=== PATIENT | male | born 1955 | race Caucasian/White ===

== ENCOUNTER 2017-06-19 08:10 | Emergency (ER) | payer OTHER ==
[~2017-06-19] VITALS: Ht 185.4 cm; Wt 68.0 kg
[~2017-06-19 08:10] MED LIST: ASPI-983 PO; ATOR80TA76 PO; ENAL2.5T PO; IBUP-30 PO; ISOS30TA3 PO; METO-387 PO; OMG1KC PO; PANT40TA3 PO; TICA90TA PO
--- OUTSIDE RECORDS SUMMARY | 2017-06-19 08:15 | XMS REPORT ---
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
--- OUTSIDE RECORDS SUMMARY | 2017-06-19 08:15 | XMS REPORT | Continuity of Care Document ---
Author Author [facility] Organization [facility] Address Unknown Phone Unavailable Allergies Active Description Code Type Severity Reaction Onset Reported/Identified Relationship to Patient Clinical Status Yes No Known Drug Allergies [id number] Drug Allergy Unknown N/ A 08/12/2014 Medications Problems Date Dx Coded Attending Type Code Diagnosis Diagnosed By 08/14/2014 ANTONIO PETERS FACC, SKYLER BUSTOS CCDS Ot 305.1 TOBACCO USE DISORDER 08/14/2014 ANTONIO PETERS FACC, SKYLER BUSTOS CCDS Ot 492.8 EMPHYSEMA NEC 08/14/2014 ANTONIO PETERS FACC, SKYLER BUSTOS CCDS Ot 518.89 OTHER DISEASES OF LUNG, NEC 08/14/2014 ANTONIO PETERS FACC, SKYLER BUSTOS CCDS Ot 786.59 CHEST PAIN NEC 09/01/2015 DANNY PRATER MD Ot E78.5 HYPERLIPIDEMIA, UNSPECIFIED 09/01/2015 DANNY PRATER MD Ot F17.210 NICOTINE DEPENDENCE, CIGARETTES, UNCOMPL 09/01/2015 DANNY PRATER MD Ot I10 ESSENTIAL (PRIMARY) HYPERTENSION 09/01/2015 DANNY PRATER MD, Ot I21.4 NON-ST ELEVATION (NSTEMI) MYOCARDIAL INF 09/01/2015 DANNY PRATER MD Ot I25.10 ATHSCL HEART DISEASE OF [place] CORONARY 09/01/2015 DANNY PRATER MD Ot K21.9 GASTRO-ESOPHAGEAL REFLUX DISEASE WITHOUT 09/01/2015 DANNY PRATER MD Ot Z82.49 FAMILY HX OF ISCHEM HEART DIS AND OTH DI 07/18/2016 DANNY PRATER MD, Ot I10 ESSENTIAL (PRIMARY) HYPERTENSION 07/18/2016 DANNY PRATER MD, Ot I25.10 ATHSCL HEART DISEASE OF [place] CORONARY 07/18/2016 DANNY PRATER MD Ot I34.0 NONRHEUMATIC MITRAL (VALVE) INSUFFICIENC 07/18/2016 DANNY PRATER MD Ot R07.9 CHEST PAIN, UNSPECIFIED 07/18/2016 DANNY PRATER MD Ot Z72.0 TOBACCO USE 08/07/2016 DANNY PRATER MD Ot I10 ESSENTIAL (PRIMARY) HYPERTENSION 08/07/2016 DANNY PRATER MD Ot I25.10 ATHSCL HEART DISEASE OF [place] CORONARY 08/07/2016 DANNY PRATER MD Ot I34.0 NONRHEUMATIC MITRAL (VALVE) INSUFFICIENC 08/07/2016 DANNY PRATER MD Ot R07.9 CHEST PAIN, UNSPECIFIED 08/07/2016 DANNY PRATER MD Ot Z72.0 TOBACCO USE Procedures Code Description Performed By Performed On 137201H 08/30/2015 [id number] 08/30/2015 [id number] 08/30/2015 [id number] 08/30/2015 [id number] 08/31/2015 [id number] 08/31/2015 Results Encounters ACCT No. Visit Date/Time Discharge Status Pt. Type Provider Facility Loc./Unit Complaint [id number] 2016 07:44:00 2015 23:59:59 CLS Outpatient DANNY PRATER MD [facility] CARD CAD,CHEST PAIN SYNDROME,HTN,MR, TOBACCO USE [id number] 08/30/2015 18:11:00 2014 14:20:00 DIS Inpatient DANNY PRATER MD [facility] ICU UPPER ABD PAIN [id number] 08/13/2014 03:41:00 2013 20:50:00 DIS Inpatient ANTONIO PETERS FACC, SKYLER BUSTOS CCDS [facility] CSD CHEST PAIN
--- OUTSIDE RECORDS SUMMARY | 2017-06-19 08:15 | XMS REPORT ---
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 Info Not Available Non Drug Allergy Problems Problem Type Condition Code Onset Dates Condition Status Assessment History of [place] (myocardial infarction) I25.2 Active Assessment Hypertension I10 Active Assessment Hyperlipidemia E78.5 Active Assessment Bronchitis J40 Active Problem Coronary artery disease I25.10 Active Problem Hypertension I10 Active Problem History of [place] (myocardial infarction) I25.2 Active Problem GERD (gastroesophageal reflux disease) K21.9 Active Assessment Routine adult health maintenance Z00.00 Active Problem Hyperlipidemia E78.5 Active Problem History of nicotine dependence Z87.891 Active Medications Medication Code System Code Instructions Start Date End Date Status Dosage Pantoprazole Sodium [facility] [address]-68 40 MG Orally Once a day 1 tablet Fish Oil [facility] [address]-91 1000 MG Orally Twice a day 1 capsule Aspirin [facility] [address]-76 81 MG Orally Once a day 1 tablet Enalapril Maleate [facility] [address]-76 2.5 MG Orally not defined Metoprolol Succinate ER [facility] [address]-88 25 MG Orally Once a day 1 tablet Albuterol Sulfate HFA [facility] [address]-74 108 (90 Base) MCG/ACT Inhalation every 4 hrs Sep 17, 2015 2 puffs as needed Brilinta [facility] [address]-32 90 MG Orally Twice a day 1 tablet PredniSONE [facility] [address]-66 20 MG Orally Sep 17, 2015 Sep 22, 2015 1 tablet with food or milk Atorvastatin Calcium [facility] [address]-19 80 MG Orally Once a day 1 tablet Isosorbide Mononitrate [facility] [address]-30 30 MG Orally Once a day 1 tablet Procedures Procedure Coding System Code Date Office Visit, New Pt., Level 4 CPT-4 37459 Sep 17, 2015 Vital Signs Date/Time: Sep 17, 2015 Temperature 98.1 F Weight 159.7 lbs Height 71 in BMI 22.27 Index Blood Pressure Diastolic 76 mmHg Blood Pressure Systolic 112 mmHg Cardiac Monitoring Heart Rate 78 bpm Results No Known Results Summary Purpose [employer] Submission
[2017-06-19] MEDS ORDERED: KETOROLAC 60 MG/2 ML VIAL IM ONE (09:45)
[2017-06-19 09:58] LABS: BASOPHILS % (AUTO) 0 % (0-10); EOSINOPHILS # (AUTO) 0.1 10^3/uL (0.0-0.3); EOSINOPHILS % (AUTO) 1 % (0-10); LYMPHOCYTES % (AUTO) 15 % (12-44); MEAN CORPUSCULAR HEMOGLOBIN 29 PG (25-34); MEAN CORPUSCULAR HGB CONC 33 G/DL (32-36); MEAN CORPUSCULAR VOLUME 87 FL (80-99); MEAN PLATELET VOLUME 8.5 FL (7.4-10.4); MONOCYTES # (AUTO) 0.6 X 10^3 (0.0-1.0); MONOCYTES % (AUTO) 9 % (0-12); NEUTROPHILS # (AUTO) 4.9 X 10^3 (1.8-7.8); NEUTROPHILS % (AUTO) 74 % (42-75); PLATELET COUNT 325 10^3/uL (130-400); RED BLOOD COUNT 4.15 10^6/uL (4.35-5.85); RED CELL DISTRIBUTION WIDTH 13.6 % (10.0-14.5); WHITE BLOOD COUNT 6.6 10^3/uL (4.3-11.0)
[2017-06-19 10:22] LABS: ERYTHROCYTE SEDIMENTATION RATE 74 MM/HR (0-30)
[2017-06-19 10:25] LABS: ALANINE AMINOTRANSFERASE 16 U/L (0-55); ALBUMIN 3.5 GM/DL (3.2-4.5); ANION GAP 10 MMOL/L (5-14); ASPARTATE AMINO TRANSFERASE 17 U/L (5-34); BILIRUBIN,TOTAL 0.6 MG/DL (0.1-1.0); BLOOD UREA NITROGEN 25 MG/DL (7-18); BUN/CREATININE RATIO 31; CARBON DIOXIDE 22 MMOL/L (21-32); CHLORIDE 106 MMOL/L (98-107); CREATININE SERUM 0.81 MG/DL (0.60-1.30); GFR ESTIMATED > 60; GLUCOSE 90 MG/DL (70-105); POTASSIUM 3.7 MMOL/L (3.6-5.0); SODIUM 138 MMOL/L (135-145); TOTAL PROTEIN 6.8 GM/DL (6.4-8.2); URIC ACID 4.3 MG/DL (2.6-7.2); hs C REACTIVE PROTEIN 11.72 MG/DL (0.00-0.50)
[2017-06-19] MEDS ORDERED: TRAM-42 PO (10:31)
[2017-06-19] MEDS ORDERED: PRED5TAB PO (10:31)
--- NOTE | 2017-06-19 10:31 | ED General ---
General Chief Complaint: General Problems/Pain Stated Complaint: SHOULDERS/HANDS PAIN Nursing Triage Note: ADM TO ED C/O SHOULDER PAIN FOR SEVERAL MONTHS. WAS SEEN AT [facility] 3 WEEKS AGO AND STARTED ON STEROIDS AND ANTI INLAMMATORY MEDS,AND CHECKED FOR LYMES DIEASE. TEST NEG. CON'T TO HAVE PAIN OTC PAIN MEDS NOT HELPING. Nursing Sepsis Screen: No Definite Risk Source of Information: Patient History of Present Illness Time Seen by Provider: 09:30 Initial Comments PT C/O CHRONIC BILATERAL SHOULDER PAIN AND OCCASIONAL BILATERAL ELBOW PAIN STATES SYMPTOMS BEGAN AT LEAST 5 YEARS AGO, AND HAVE BEEN WORSE FOR SEVERAL MONTHS OCCASIONALLY HANDS SWELL AND ARE PAINFUL WELL, AND PAIN IN HANDS RIGHT NOW IS MOSTLY IN KNUCKLES AND IS WORSE ON LEFT HAND SYMPTOMS COME AND GO, AND NOTHING WORSENS OR IMPROVES PAIN STATES HE THINKS HE IS BEING TREATED FOR GOUT BUT NO TESTS HAVE BEEN DONE SEEN AT [facility] 3 WEEKS AGO FOR THIS PROBLEM AND WAS GIVEN RX FOR 5 DAYS OF STEROIDS AND THEN A FEW DAYS OF AN NSAID, WHICH HELPED, ESPECIALLY THE STEROIDS HAS ANOTHER APPOINTMENT 06/25/17 FOR THIS PROBLEM BUT STATES HE "CAN'T WAIT" STATES HE CANNOT SLEEP DUE TO PAIN NO PARESTHESIAS OR MOTOR DEFICITS NO INJURIES PCP:[facility] Allergies and Home Medications Allergies Coded Allergies: No Known Drug Allergies (Unverified , 08/12/14) Home Medications Aspirin 81 Mg Tablet.dr, 81 MG PO DAILY, #100 Ref 4 Prescribed by: DANNY PRATER on 09/01/15916 Atorvastatin Calcium 80 Mg Tablet, 80 MG PO HS, #30 Ref 4 Prescribed by: DANNY PRATER on 09/01/15916 Enalapril Maleate 2.5 Mg Tablet, 2.5 MG PO DAILY, #30 Ref 4 Prescribed by: DANNY PRATER on 09/01/15916 Isosorbide Mononitrate 30 Mg Tab.er.24h, 30 MG PO DAILY, #30 Ref 4 Prescribed by: DANNY PRATER on 09/01/15916 Metoprolol Succinate 25 Mg Tab.er.24h, 25 MG PO DAILY, #30 Ref 4 Prescribed by: DANNY PRATER on 09/01/15916 [place] 3 Polyunsat Fatty Acids 1,000 Mg Cap, 1,000 MG PO BID WITH MEALS, #100 Ref 4 Prescribed by: DANNY PRATER on 09/01/15916 Pantoprazole Sodium 40 Mg Tablet.dr, 40 MG PO DAILY@0700, #30 Ref 4 Prescribed by: DANNY PRATER on 09/01/15916 Prednisone 5 Mg Tablet, 5 MG PO UD, #78 12 PILLS DAY 1, THEN DECREASE BY 1 PILL A DAY UNTIL GONE Prescribed by: TAY CARRASQUILLO on 06/19/17 1031 Ticagrelor 90 Mg Tablet, 90 MG PO BID, #60 Ref 4 Prescribed by: DANNY PRATER on 09/01/15916 Tramadol HCl 50 Mg Tablet, 50 MG PO Q4H, #20 Prescribed by: TAY CARRASQUILLO on 06/19/17 1031 Constitutional: no symptoms reported Respiratory: no symptoms reported, No short of breath Cardiovascular: no symptoms reported, No chest pain Gastrointestinal: no symptoms reported Genitourinary: no symptoms reported Musculoskeletal: see HPI, joint pain, joint swelling Skin: no symptoms reported Psychiatric/Neurological: No Symptoms Reported, Denies Numbness, Denies Paresthesia, Denies Tingling, Denies Tremors, Denies Weakness Hematologic/Lymphatic: No Symptoms Reported Immunological/Allergic: no symptoms reported Past Zpcztfg-Jeusfl-Chisfn Hx Patient Social History Alcohol Use: Denies Use Recreational Drug Use: No Smoking Status: Current Everyday Smoker Type Used: Cigarettes (1 PPD) Recent Foreign Travel: No Contact w/Someone Who Travel: No Recent Infectious Disease Expo: No Seasonal Allergies Seasonal Allergies: No Surgeries HX Surgeries: Yes (CARDIAC CATH--STENTS X 3) Surgeries: Cardiac, Coronary Stent Respiratory Hx Respiratory Disorders: Yes Respiratory Disorders: COPD Cardiovascular Hx Cardiac Disorders: Yes Cardiac Disorders: Coronary Artery Disease, Heart Attack, High Cholesterol, Hypertension Neurological Hx Neurological Disorders: No Reproductive System Hx Reproductive Disorders: No Sexually Transmitted Disease: No Genitourinary Hx Genitourinary Disorders: No Gastrointestinal Hx Gastrointestinal Disorders: Yes Gastrointestinal Disorders: Gastroesophageal Reflux Musculoskeletal Hx Musculoskeletal Disorders: Yes (SHOULDER, ELBOW, HAND PAIN ) Endocrine Hx Endocrine Disorders: No HEENT HX ENT Disorders: No Cancer Hx Cancer: No Psychosocial Hx Psychiatric Problems: No Integumentary HX Skin/Integumentary Disorder: No Blood Transfusions Hx Blood Disorders: No Adverse Reaction to a Blood Tr: No Family Medical History Family Medial History: Cardiovascular disease Cataracts Diabetes mellitus Glaucoma Hypertension Myocardial infarction Respiratory disorder Thyroid disease Visual disorder No Family History of: AIDS Abdominal aortic aneurysm [place]'s disease Alcoholism Alzheimer's disease Aphasia Arthritis Asthma Cancer of mouth Colon cancer Completed stroke Congenital disease Congenital heart disease Coronary thrombosis Cystic fibrosis Deafness or hearing loss Dementia Drug abuse Dysphasia Fibrocystic disease of breast Gastroenteritis Headache disorder Hypercholesterolemia Infertility Kidney disease Neoplasm Not obtainable due to adoption Osteoporosis Parkinson's disease Prostate cancer Psychosocial problem Seizure disorder Severe allergy Tuberculosis Physical Exam Vital Signs Capillary Refill : Less Than 3 Seconds General Appearance: No Apparent Distress, WD/WN, Other (DIRTY, MALODOROUS, UNKMEPT) Neck: Full Range of Motion, Normal Inspection, Non Tender, Supple Respiratory: Normal Breath Sounds, No Accessory Muscle Use, No Respiratory Distress Cardiovascular: Regular Rate, Rhythm, No Murmur, Normal Peripheral Pulses Back: Normal Inspection, No CVA Tenderness, No Vertebral Tenderness Extremity: Normal Capillary Refill, Normal Range of Motion, No Pedal Edema, Other (PT WITH SWELLING, TENDERNESS AND ERYTHEMA TO MID MCP JOINTS OF HANDS-- LEFT > RIGHT. MILD TENDERNESS TO ELBOWS AND SHOULDERS. FULL ROM OF ALL JOINTS. MOTOR/SENSORY/VASCULAR INTACT. ) Neurologic/Psychiatric: Alert, Oriented x3, No Motor/Sensory Deficits, analytical consultant II- XII Norm as Tested Skin: Normal Color, Warm/Dry Progress/Results/Core Measures Results/Orders Lab Results My Orders Medications Given in ED Vital Signs/I&O Blood Pressure Mean: 101 Departure Impression Impression: Primary Impression: Inflammatory arthritis Disposition: 01 HOME, SELF-CARE Condition: Stable Departure-Patient Inst. Referrals: [facility] (PCP/Family) Primary Care Physician Patient Instructions: ARTHRALGIA Add. Discharge Instructions: ALTERNATE ICE AND HEAT TO SORE AREAS AT 20 MINUTE INTERVALS KEEP YOUR APPOINTMENT NEXT WEEK WITH [facility] All discharge instructions reviewed with patient and/or family. Voiced understanding. Scripts Tramadol HCl (Ultram) 50 Mg Tablet 50 MG PO Q4H, #20 TAB Prov: TAY CARRASQUILLO DO 06/19/17 Prednisone (Prednisone) 5 Mg Tablet 5 MG PO UD, #78 TAB 12 PILLS DAY 1, THEN DECREASE BY 1 PILL A DAY UNTIL GONE Prov: TAY CARRASQUILLO DO 06/19/17 TAY CARRASQUILLO DO Jun 19, 2017 10:31
[2017-06-19 10:50] VITALS: BP 144/81
[2017-06-19 22:14] LABS: LYME AB G M < 0.01 Index (0.00-0.89)
[2017-06-22 07:56] LABS: LYME AB INTERP Negative (Negative)
[2017-06-22 08:11] LABS: TULAREMIA ANTIBODY <1:20
[2017-06-22 13:44] LABS: EHRLICHIA CHAFFEENSIS G ABY <1:16 (<1:16)
[2017-06-22 15:40] LABS: IGG ROCKY MOUNTAIN SPOTTED FEV <1:16 (<1:16); IGM ROCKY MOUNTAIN SPOTTED FEV <1:10 (<1:10)
== END 2017-06-19 10:50 | disposition home or self-care (01) ==
LOC: EDUNIT# 08:10 → ER 08:12
DX: M19.012 Primary osteoarthritis, left shoulder (principal); M19.011 Primary osteoarthritis, right shoulder; J44.9 Chronic obstructive pulmonary disease, unspecified; I25.2 Old myocardial infarction; K21.9 Gastro-esophageal reflux disease without esophagitis; F17.200 Nicotine dependence, unspecified, uncomplicated; Z82.49 Family history of ischemic heart disease and other diseases of the circulatory system; Z79.82 Long term (current) use of aspirin
CPT/HCPCS: 36415; 80053; 84443; 84550; 85025; 85652; 86141; 86618; 86666; 86668; 86757; 96372; 99284

== ENCOUNTER 2017-07-19 16:49 | Inpatient (IN) | payer OTHER ==
[~2017-07-19] VITALS: Ht 185.4 cm; Wt 68.0 kg
[~2017-07-19 16:49] MED LIST changes: +METO-270 PO; -METO-387 PO; +PRED5TAB PO; +TRAM-42 PO
[2017-07-19] MEDS ORDERED: fentaNYL INJECTION 100 MCG/2 ML AMP IVP STA (18:25)
[2017-07-19] MEDS ORDERED: NS IV 1000 ML 1,000 ML IV ONE (18:25)
[2017-07-19 18:30] LABS: BASOPHILS % (AUTO) 0 % (0-10); EOSINOPHILS % (AUTO) 0 % (0-10); LYMPHOCYTES # (AUTO) 0.9 X 10^3 (1.0-4.0); LYMPHOCYTES % (AUTO) 9 % (12-44); MEAN CORPUSCULAR HEMOGLOBIN 29 PG (25-34); MEAN CORPUSCULAR HGB CONC 34 G/DL (32-36); MEAN CORPUSCULAR VOLUME 86 FL (80-99); MEAN PLATELET VOLUME 8.8 FL (7.4-10.4); MONOCYTES # (AUTO) 0.7 X 10^3 (0.0-1.0); MONOCYTES % (AUTO) 7 % (0-12); NEUTROPHILS # (AUTO) 8.6 X 10^3 (1.8-7.8); NEUTROPHILS % (AUTO) 84 % (42-75); PLATELET COUNT 343 10^3/uL (130-400); RED CELL DISTRIBUTION WIDTH 14.9 % (10.0-14.5); WHITE BLOOD COUNT 10.3 10^3/uL (4.3-11.0)
--- NOTE | 2017-07-19 18:37 | ED General ---
General Chief Complaint: General Problems/Pain Stated Complaint: JOINT PAIN/HOT AND COLD FLASHES Nursing Triage Note: PT AMBULATED TO ROOM PT COMPLAINS OF GENERALIZED JOINT PAIN. PT ALSO C/O HOT AND COLD FLASHES. Nursing Sepsis Screen: No Definite Risk Source of Information: Patient Exam Limitations: No Limitations History of Present Illness Time Seen by Provider: 17:20 Initial Comments 62-year-old male patient presents to the emergency department with complaints of generalized joint pain, bodyaches, and malaise. Patient reports the joint pain "migrates" with each episode. Patient states he has hot and cold flashes when pain starts, but denies any known fevers. Patient reports having intermittent symptoms previously and has been tested twice for tick illnesses. Patient states he was tested negative for tick illnesses. Denies any known recent tick bites or mosquito bites. Patient was seen by Dr. Ruth on June for similar complaints and diagnosed with inflammatory arthritis. Timing/Duration: 2-3 Days (worse today.) Modifying Factors: worse with Medication (no improvement with diclofenac and tramadol.), worse with Movement Allergies and Home Medications Allergies Coded Allergies: No Known Drug Allergies (Unverified , 08/12/14) Home Medications Aspirin 81 Mg Tablet., 81 MG PO DAILY, #100 Ref 4 Prescribed by: DANNY PRATER on 09/01/15916 Atorvastatin Calcium 80 Mg Tablet, 80 MG PO HS, #30 Ref 4 Prescribed by: DANNY PRATER on 09/01/15916 Enalapril Maleate 2.5 Mg Tablet, 2.5 MG PO DAILY, #30 Ref 4 Prescribed by: DANNY PRATER on 09/01/15916 Isosorbide Mononitrate 30 Mg Tab.er.24h, 30 MG PO DAILY, #30 Ref 4 Prescribed by: DANNY PRATER on 09/01/15916 Metoprolol Succinate 25 Mg Tab.er.24h, 25 MG PO DAILY, #30 Ref 4 Prescribed by: DANNY PRATER on 09/01/15916 [place] 3 Polyunsat Fatty Acids 1,000 Mg Cap, 1,000 MG PO BID WITH MEALS, #100 Ref 4 Prescribed by: DANNY PRATER on 09/01/15916 Pantoprazole Sodium 40 Mg Tablet., 40 MG PO DAILY@0700, #30 Ref 4 Prescribed by: DANNY PRATER on 09/01/15 0917 Prednisone 5 Mg Tablet, 5 MG PO UD, #78 12 PILLS DAY 1, THEN DECREASE BY 1 PILL A DAY UNTIL GONE Prescribed by: TAY RUTH on 06/19/17 1031 Ticagrelor 90 Mg Tablet, 90 MG PO BID, #60 Ref 4 Prescribed by: DANNY PRATER on 09/01/15 0917 Tramadol HCl 50 Mg Tablet, 50 MG PO Q4H, #20 Prescribed by: TAY RUTH on 06/19/17 1031 Constitutional: chills, No fever, malaise, other (fatigue and hot flashes.) EENTM: throat pain, No ear pain, No hoarseness, No mouth pain, No mouth swelling, No nose congestion, No throat swelling Respiratory: No cough, No phlegm, No short of breath Cardiovascular: No chest pain, No edema, No palpitations, No syncope Gastrointestinal: No abdominal pain, No constipation, No diarrhea, loss of appetite, No nausea, No vomiting Genitourinary: no symptoms reported Musculoskeletal: see HPI Skin: No change in color, No lesions, No rash Psychiatric/Neurological: No Symptoms Reported All Other Systems Reviewed Negative Unless Noted: Yes (Negative excepted noted.) Past Nudksrf-Bqtqqv-Omwqkz Hx Patient Social History Alcohol Use: Denies Use Recreational Drug Use: No Smoking Status: Current Someday Smoker Type Used: Cigarettes 2nd Hand Smoke Exposure: Yes Recent Foreign Travel: No Contact w/Someone Who Travel: No Recent Infectious Disease Expo: No Recent Hopitalizations: No Physical Abuse: No Sexual Abuse: No Seasonal Allergies Seasonal Allergies: No Surgeries History of Surgeries: Yes (CARDIAC CATH--STENTS X 3) Surgeries: Cardiac, Coronary Stent Respiratory History of Respiratory Disorde: Yes Respiratory Disorders: COPD Currently Using CPAP: No Currently Using BIPAP: No Cardiovascular History of Cardiac Disorders: Yes (STENTS) Cardiac Disorders: Coronary Artery Disease, Heart Attack, High Cholesterol, Hypertension Neurological History of Neurological Disord: No Reproductive System Hx Reproductive Disorders: No Sexually Transmitted Disease: No Genitourinary History of Genitourinary Disor: No Gastrointestinal History of Gastrointestinal Di: Yes Gastrointestinal Disorders: Gastroesophageal Reflux Musculoskeletal History of Musculoskeletal Dis: Yes (SHOULDER, ELBOW, HAND PAIN ) Endocrine History of Endocrine Disorders: No HEENT History of HEENT Disorders: No Cancer History of Cancer: No Psychosocial History of Psychiatric Problem: No Suicide Risk Score: 0 Integumentary History of Skin or Integumenta: No Blood Transfusions History of Blood Disorders: No Adverse Reaction to a Blood Tr: No Reviewed Nursing Assessment Reviewed/Agree w Nursing PMH: Yes Family Medical History Significant Family History: No Pertinent Family Hx Family Medial History: Cardiovascular disease Cataracts Diabetes mellitus Glaucoma Hypertension Myocardial infarction Respiratory disorder Thyroid disease Visual disorder No Family History of: AIDS Abdominal aortic aneurysm [place]'s disease Alcoholism Alzheimer's disease Aphasia Arthritis Asthma Cancer of mouth Colon cancer Completed stroke Congenital disease Congenital heart disease Coronary thrombosis Cystic fibrosis Deafness or hearing loss Dementia Drug abuse Dysphasia Fibrocystic disease of breast Gastroenteritis Headache disorder Hypercholesterolemia Infertility Kidney disease Neoplasm Not obtainable due to adoption Osteoporosis Parkinson's disease Prostate cancer Psychosocial problem Seizure disorder Severe allergy Tuberculosis Physical Exam Vital Signs Vital Sign - Last 12Hours 07/19/17 17:04 Temp 99.7 Pulse 78 Resp 20 B/P (MAP) 136/87 Pulse Ox 98 O2 Delivery Room Air Capillary Refill : Less Than 3 Seconds General Appearance: No Apparent Distress, WD/WN Neck: Full Range of Motion, Non Tender, Supple, Tender Lateral, No Tender Midline, Other ((+) posterior neck muscle spasm.) Respiratory: Lungs Clear, Normal Breath Sounds, No Accessory Muscle Use, No Respiratory Distress Cardiovascular: Regular Rate, Rhythm, No Edema, No Murmur, Normal Peripheral Pulses Gastrointestinal: Normal Bowel Sounds, Non Tender, Soft Back: Normal Inspection, No Vertebral Tenderness, No Decreased Range of Motion , Muscle Spasm (Bilateral upper back muscle spasm with tenderness.) Extremity: Normal Capillary Refill, No Calf Tenderness, No Pedal Edema, Swelling (swelling of the rt fraga wrist and left posterior wrist. ), Other ( 5x5 cm area of Erythema, warmth, tenderness, and streaking up the rt anterior wrist to the proximal forearm. 5x4 cm area of erythema, warmth and tenderness of the left posterior wrist. decreased ROM bilateral wrists. Bilateral shoulders, elbows, hips, knees, and ankles negative.) Neurologic/Psychiatric: Alert, Oriented x3, No Motor/Sensory Deficits, Normal Mood/Affect, seo engineer II-XII Norm as Tested Skin: Normal Color, Warm/Dry, Other (5x5 cm area of Erythema, warmth, tenderness, and streaking up the rt anterior wrist to the proximal forearm. 5x4 cm area of erythema, warmth and tenderness of the left posterior wrist.) Progress/Results/Core Measures Results/Orders Lab Results Laboratory Tests Test 07/19/17 17:50 Range/Units White Blood Count 10.3 4.3-11.0 10^3/uL Red Blood Count 3.90 L 4.35-5.85 10^6/uL Hemoglobin 11.3 L 13.3-17.7 G/DL Hematocrit 33 L 40-54 % Mean Corpuscular Volume 86 80-99 FL Mean Corpuscular Hemoglobin 29 25-34 PG Mean Corpuscular Hemoglobin Concent 34 32-36 G/DL Red Cell Distribution Width 14.9 H 10.0-14.5 % Platelet Count 343 130-400 10^3/uL Mean Platelet Volume 8.8 7.4-10.4 FL Neutrophils (%) (Auto) 84 H 42-75 % Lymphocytes (%) (Auto) 9 L 12-44 % Monocytes (%) (Auto) 7 0-12 % Eosinophils (%) (Auto) 0 0-10 % Basophils (%) (Auto) 0 0-10 % Neutrophils # (Auto) 8.6 H 1.8-7.8 X 10^3 Lymphocytes # (Auto) 0.9 L 1.0-4.0 X 10^3 Monocytes # (Auto) 0.7 0.0-1.0 X 10^3 Eosinophils # (Auto) 0.0 0.0-0.3 10^3/uL Basophils # (Auto) 0.0 0.0-0.1 10^3/uL Erythrocyte Sedimentation Rate 54 H 0-30 MM/HR Sodium Level 133 L 135-145 MMOL/L Potassium Level 3.6 3.6-5.0 MMOL/L Chloride Level 103 98-107 MMOL/L Carbon Dioxide Level 20 L 21-32 MMOL/L Anion Gap 10 5-14 MMOL/L Blood Urea Nitrogen 34 H 7-18 MG/DL Creatinine 0.89 0.60-1.30 MG/DL Estimat Glomerular Filtration Rate > 60 BUN/Creatinine Ratio 38 Glucose Level 127 H 70-105 MG/DL Calcium Level 8.8 8.5-10.1 MG/DL Total Bilirubin 0.6 0.1-1.0 MG/DL Aspartate Amino Transf (AST/SGOT) 12 5-34 U/L Alanine Aminotransferase (ALT/SGPT) 13 0-55 U/L Alkaline Phosphatase 87 40-136 U/L C-Reactive Protein High Sensitivity 20.34 H 0.00-0.50 MG/DL Total Protein 6.3 L 6.4-8.2 GM/DL Albumin 3.5 3.2-4.5 GM/DL My Orders Orders - RILEY MARTIN Cbc With Automated Diff (07/19/17 18:25) Comprehensive Metabolic Panel (07/19/17 18:25) Hs C Reactive Protein (07/19/17 18:25) Erythrocyte Sedimentation Rate (07/19/17 18:25) Saline Lock/Iv-Start (07/19/17 18:25) Ns Iv 1000 Ml (Sodium Chloride 0.9%) (07/19/17 18:25) Fentanyl Injection (Sublimaze Injection (07/19/17 18:25) Wrist, Bilateral, 2 Views (07/19/17 18:26) Ketorolac Injection (Toradol Injection) (07/19/17 19:59) Morphine Injection (Morphine Injection (07/19/17 19:59) Methylprednisolone Sod Succ (Solu-Medrol (07/19/17 19:59) Medications Given in ED Current Medications Medications Dose Ordered Sig/Keegan Route Start Time Stop Time Status Last Admin Dose Admin Sodium Chloride 1,000 ml @ 0 mls/hr Q0M ONCE IV 07/19/17 18:25 07/19/17 18:27 DC 07/19/17 18:34 1,000 MLS/HR Vital Signs/I&O Vital Sign - Last 12Hours 07/19/17 07/19/17 17:04 22:21 Temp 99.7 99.7 Pulse 78 68 Resp 20 20 B/P (MAP) 136/87 Pulse Ox 98 98 O2 Delivery Room Air Room Air Blood Pressure Mean: 103 Diagnostic Imaging Diagonstic Imaging: Xray Plain Films/CT/US/NM/MRI: other (bilat wrists) Comments FINDINGS: Mild degenerative joint disease throughout most of the articular surfaces. There is no acute fracture or dislocation. No bony erosion or soft tissue abnormality is seen. IMPRESSION: 1. Mild degenerative pattern. No fracture, dislocation or osseous lesion. 2. No bony erosion. Dictated by: Dictated on workstation # [id number] Reviewed: Reviewed by Me (radiology report reviewed by me) Departure Communication (Admissions) Time/Spoke to Admitting Phy: 20:[address] salmeron graciously accepts patient to his medical service for IV antibiotics, pain control, and further evaluation. Progress Notes Patient seen and evaluated. Patient was given Toradol 30 mg IV, fentanyl 100 g IV, and 6 mg of morphine IV with minimal improvement and pain. Patient case discussed with Dr. Salmeron, he graciously accepts patient to his medical service for IV antibiotics, pain control, and further management. All laboratory findings, diagnostic study findings, and plan for admission discussed with the patient. Patient voices understanding and agrees with the treatment plan. Plan for admission discussed with Dr. Demarco, he agrees with the plan of care. Impression Impression: Primary Impression: Cellulitis of wrist Additional Impression: Intractable pain Disposition: ADMITTED INPATIENT Condition: Stable Admissions Decision to Admit Reason: Admit from ER (General) Decision to Admit/Date: Jul 19, 2017 Time/Decision to Admit Time: 20:45 Departure-Patient Inst. Referrals: [facility] (PCP/Family) Primary Care Physician RILEY MARTIN Jul 19, 2017 18:37
[2017-07-19 18:48] LABS: ALANINE AMINOTRANSFERASE 13 U/L (0-55); ALBUMIN 3.5 GM/DL (3.2-4.5); ANION GAP 10 MMOL/L (5-14); ASPARTATE AMINO TRANSFERASE 12 U/L (5-34); BILIRUBIN,TOTAL 0.6 MG/DL (0.1-1.0); BLOOD UREA NITROGEN 34 MG/DL (7-18); BUN/CREATININE RATIO 38; CALCIUM 8.8 MG/DL (8.5-10.1); CARBON DIOXIDE 20 MMOL/L (21-32); CHLORIDE 103 MMOL/L (98-107); CREATININE SERUM 0.89 MG/DL (0.60-1.30); GFR ESTIMATED > 60; GLUCOSE 127 MG/DL (70-105); POTASSIUM 3.6 MMOL/L (3.6-5.0); SODIUM 133 MMOL/L (135-145); TOTAL PROTEIN 6.3 GM/DL (6.4-8.2); hs C REACTIVE PROTEIN 20.34 MG/DL (0.00-0.50)
[2017-07-19 18:58] LABS: ERYTHROCYTE SEDIMENTATION RATE 54 MM/HR (0-30)
--- NOTE | 2017-07-19 19:17 | Diagnostic Imaging Report ---
INDICATION: Bilateral wrist pain. COMPARISON: None. EXAMINATION: Two views of the bilateral wrist were obtained. FINDINGS: Mild degenerative joint disease throughout most of the articular surfaces. There is no acute fracture or dislocation. No bony erosion or soft tissue abnormality is seen. IMPRESSION: 1. Mild degenerative pattern. No fracture, dislocation or osseous lesion. 2. No bony erosion. Dictated by: Dictated on workstation # [id number]
[2017-07-19] MEDS ORDERED: morphine INJ 10 MG/ML 1ML (SYR OR VIAL) IVP STA (19:59)
[2017-07-19] MEDS ORDERED: methylPREDNISolone 125 MG (Solu-MEDROL) VIAL IV STA (19:59)
[2017-07-19] MEDS ORDERED: KETOROLAC 30 MG/ML VIAL IVP STA (19:59)
[2017-07-19] MEDS: NS IV 1000 ML 1,000 ML IV SCH (23:14)
[2017-07-19] MEDS ORDERED: ONDANSETRON 4 MG/2 ML (SDV) Z0FRAN IV PRN (23:15)
[2017-07-19] MEDS ORDERED: VANCOMYCIN 1 GM/NS 250 ML IVPB IV SCH ×2 (23:15)
[2017-07-19] MEDS ORDERED: CATHETER FLUSH 10 ML SYR IV PRN (23:15)
[2017-07-19] MEDS ORDERED: morphine INJ 4 MG/ML 1 ML (VIAL/SYRINGE) IV PRN (23:15)
[2017-07-20] VITALS: BP 129/73
[2017-07-20] MEDS: KETOROLAC 30 MG/ML VIAL IV PRN ×3 (02:15→16:39)
[2017-07-20] MEDS: CATHETER FLUSH 10 ML SYR IV SCH ×3 (03:48→20:37)
[2017-07-20 04:00] VITALS: BP 128/79
[2017-07-20 05:41] LABS: BASOPHILS % (AUTO) 0 % (0-10); EOSINOPHILS % (AUTO) 0 % (0-10); LYMPHOCYTES # (AUTO) 0.8 X 10^3 (1.0-4.0); LYMPHOCYTES % (AUTO) 7 % (12-44); MEAN CORPUSCULAR HEMOGLOBIN 29 PG (25-34); MEAN CORPUSCULAR HGB CONC 33 G/DL (32-36); MEAN CORPUSCULAR VOLUME 87 FL (80-99); MEAN PLATELET VOLUME 8.3 FL (7.4-10.4); MONOCYTES # (AUTO) 0.3 X 10^3 (0.0-1.0); MONOCYTES % (AUTO) 3 % (0-12); NEUTROPHILS # (AUTO) 10.6 X 10^3 (1.8-7.8); NEUTROPHILS % (AUTO) 91 % (42-75); PLATELET COUNT 294 10^3/uL (130-400); RED BLOOD COUNT 3.96 10^6/uL (4.35-5.85); RED CELL DISTRIBUTION WIDTH 14.9 % (10.0-14.5); WHITE BLOOD COUNT 11.7 10^3/uL (4.3-11.0)
[2017-07-20 06:10] LABS: ALANINE AMINOTRANSFERASE 10 U/L (0-55); ALBUMIN 3.1 GM/DL (3.2-4.5); ANION GAP 7 MMOL/L (5-14); ASPARTATE AMINO TRANSFERASE 9 U/L (5-34); BILIRUBIN,TOTAL 0.4 MG/DL (0.1-1.0); BLOOD UREA NITROGEN 33 MG/DL (7-18); BUN/CREATININE RATIO 34; CALCIUM 8.7 MG/DL (8.5-10.1); CARBON DIOXIDE 22 MMOL/L (21-32); CHLORIDE 107 MMOL/L (98-107); CREATININE SERUM 0.96 MG/DL (0.60-1.30); GFR ESTIMATED > 60; GLUCOSE 152 MG/DL (70-105); POTASSIUM 4.5 MMOL/L (3.6-5.0); SODIUM 136 MMOL/L (135-145); hs C REACTIVE PROTEIN 21.89 MG/DL (0.00-0.50)
[2017-07-20 06:18] LABS: LYMPHOCYTES % (MANUAL) 3 %; NEUTROPHILS % (MANUAL) 96 %; POIKILOCYTOSIS SLIGHT
[2017-07-20 06:28] LABS: ERYTHROCYTE SEDIMENTATION RATE 50 MM/HR (0-30)
[2017-07-20 08:00] VITALS: BP 123/75
[2017-07-20] MEDS: FAMOTIDINE 20 MG (PEPCID) TABLET PO SCH ×2 (08:28→20:37)
[2017-07-20] MEDS: oxyCODONE/APAP 5/325MG (PERCOCET 5) TABLET PO PRN ×2 (08:29→16:39)
[2017-07-20] MEDS: VANCOMYCIN 1250 MG/NS 250 ML IVPB IV SCH ×4 (08:32→20:37)
--- NOTE | 2017-07-20 09:43 | History & Physicial (CHS) ---
HPI History of Present Illness: Came in with bilateral wrist swelling and pain and right wrist had redness with streaks in addition on the palmar side and his left hand had fainter redness on the dorsal side. He also had swollen ankles and swelling in left popliteal fossa. He notes swelling and numbness in his fingertips of his right hands and feels in general as if his muscles "are trying to pull out from where they are attached". For 3 months he has been having attacks like this that start out with chills and fevers and then swelling of joints with associated pain he rates as 9-10/10. Episodes usually last 5-7 hours and subside and he feels sore afterward. First time this occurred in April was his shoulders, but since then all of his upper extremity joints, new this time is the lower extremity pain which did not resolve like previous episodes and that it was brought him in. He saw Victorino Knapp at clinic Jun 25 and was given diclofenac which seemed to help until the attack yesterday. Tramadol in past did not help. 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 Date seen by provider: Jul 20, 2017 Time Seen by Provider: 10:45 Attending Physician Brayden Guzman MD PCP bandar,[facility] Date of Admission Jul 19, 2017 at 8:54 pm Home Medications Home Medications Reviewed patient Home Medication Reconciliation Form Allergies Coded Allergies: No Known Drug Allergies (Unverified , 08/12/14) [id number]-[id number] Hx Patient Social History Alcohol Use: Denies Use Recreational Drug Use: No Smoking Status: Current Someday Smoker Type Used: Cigarettes 2nd Hand Smoke Exposure: Yes Recent Foreign Travel: No Contact w/other who traveled: No Recent Hopitalizations: No Recent Infectious Disease Expo: No Physical Abuse Screen: No Sexual Abuse: No Past Medical History PMHx: CAD with stent placement x 3 Family Medical History Significant Family History: Diabetes, Hypertension Review of Systems ([facility]) Constitutional: chills, fever, weight loss (5-8 lbs over 4-5 months), other ( night sweats x 3-4 months) EENTM: No blurred vision, No double vision, No eye pain, No vision loss Respiratory: short of breath (chronic, attributes to his smoking) Cardiovascular: No chest pain Gastrointestinal: diarrhea (chronic), No nausea, No vomiting Musculoskeletal: see HPI Reviewed Test Results Reviewed Test Results Lab Laboratory Tests Test 07/19/17 17:50 07/20/17 05:32 Range/Units White Blood Count 10.3 11.7 H 4.3-11.0 10^3/uL Red Blood Count 3.90 L 3.96 L 4.35-5.85 10^6/uL Hemoglobin 11.3 L 11.5 L 13.3-17.7 G/DL Hematocrit 33 L 35 L 40-54 % Mean Corpuscular Volume 86 87 80-99 FL Mean Corpuscular Hemoglobin 29 29 25-34 PG Mean Corpuscular Hemoglobin Concent 34 33 32-36 G/DL Red Cell Distribution Width 14.9 H 14.9 H 10.0-14.5 % Platelet Count 343 294 130-400 10^3/uL Mean Platelet Volume 8.8 8.3 7.4-10.4 FL Neutrophils (%) (Auto) 84 H 91 H 42-75 % Lymphocytes (%) (Auto) 9 L 7 L 12-44 % Monocytes (%) (Auto) 7 3 0-12 % Eosinophils (%) (Auto) 0 0 0-10 % Basophils (%) (Auto) 0 0 0-10 % Neutrophils # (Auto) 8.6 H 10.6 H 1.8-7.8 X 10^3 Lymphocytes # (Auto) 0.9 L 0.8 L 1.0-4.0 X 10^3 Monocytes # (Auto) 0.7 0.3 0.0-1.0 X 10^3 Eosinophils # (Auto) 0.0 0.0 0.0-0.3 10^3/uL Basophils # (Auto) 0.0 0.0 0.0-0.1 10^3/uL Erythrocyte Sedimentation Rate 54 H 50 H 0-30 MM/HR Sodium Level 133 L 136 135-145 MMOL/L Potassium Level 3.6 4.5 3.6-5.0 MMOL/L Chloride Level 103 107 98-107 MMOL/L Carbon Dioxide Level 20 L 22 21-32 MMOL/L Anion Gap 10 7 5-14 MMOL/L Blood Urea Nitrogen 34 H 33 H 7-18 MG/DL Creatinine 0.89 0.96 0.60-1.30 MG/DL Estimat Glomerular Filtration Rate > 60 > 60 BUN/Creatinine Ratio 38 34 Glucose Level 127 H 152 H 70-105 MG/DL Calcium Level 8.8 8.7 8.5-10.1 MG/DL Total Bilirubin 0.6 0.4 0.1-1.0 MG/DL Aspartate Amino Transf (AST/SGOT) 12 9 5-34 U/L Alanine Aminotransferase (ALT/SGPT) 13 10 0-55 U/L Alkaline Phosphatase 87 80 40-136 U/L C-Reactive Protein High Sensitivity 20.34 H 21.89 H 0.00-0.50 MG/DL Total Protein 6.3 L 6.0 L 6.4-8.2 GM/DL Albumin 3.5 3.1 L 3.2-4.5 GM/DL Neutrophils % (Manual) 96 % Lymphocytes % (Manual) 3 % Monocytes % (Manual) 1 % Poikilocytosis SLIGHT Radiology Wrist x-ray bilateral 07/19: IMPRESSION: 1. Mild degenerative pattern. No fracture, dislocation or osseous lesion. 2. No bony erosion. Physical Exam-([facility]) Physical Exam Vital Signs VS - Last 72 Hours, by Label 07/19/17 07/19/17 07/19/17 07/20/17 17:04 22:21 22:40 00:00 Temp 99.7 99.7 97.8 Pulse 78 68 60 Resp 20 20 20 B/P (MAP) 136/87 129/73 Pulse Ox 98 98 98 O2 Delivery Room Air Room Air Room Air Room Air 07/20/17 07/20/17 04:00 08:00 Temp 96.4 97.6 Pulse 60 84 Resp 18 18 B/P (MAP) 128/79 123/75 Pulse Ox 98 95 O2 Delivery Room Air Room Air Capillary Refill : Less Than 3 Seconds General Appearance: no apparent distress Eyes: Bilateral Eye Normal Inspection Respiratory: lungs clear, normal breath sounds, no respiratory distress Cardiovascular: regular rate, rhythm, no edema, no murmur Peripheral Pulses: 2+ Dorsalis Pedis (R), 2+ Left Dors-Pedis (L), 2+ Radial Pulses (R), 2+ Radial Pulses (L) Gastrointestinal: normal bowel sounds, soft, tenderness (epigastric) Extremities: other (right hand with swelling entire hand and all fingers, mild but noticeable compared to left, dry and cracking skin on palms and fingertips of right hand, no swelling in ankles or over denis's tendon insertion) Neurologic/Psychiatric: alert, normal mood/affect, oriented x 3, other ( decreased sensation entire right hand compared to left, 5/5 strength in upper and lower extremities with slightly decreased engineer process strength on right which appears to be more due to sweling than muscle issue) Skin: warm/dry Assessment/Plan Assessment/Plan Admission Dx Bilateral wrist pain with possible cellulitis Decreased sensation right hand Migratory arthritis Diarrhea CAD Plan Bilateral wrist pain with possible cellulitis- swelling and erythema on admission, no leukocytosis, fever, tachycardia, etc -Vancomycin started on admission and no erythema present this morning -Unclear etiology of pain- x-rays of bilateral wrists with mild degenerative changes, right hand this morning clearly swollen diffusely and with decreased sensation, see below Decreased sensation right hand- with additional complaint of neck popping sensations over last couple of months -Check C spine MRI 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 with elevated ESR/CRP and swelling; negative RMSF and Lyme testing since onset of episodes -Has improved for a time with scheduled diclofenac and is much improved this am after receiving IV solumedrol last night -Check GC/chlamydia, HIV, Hep C, RF, ARTURO and anti-CCP, discussed that we may not make firm diagnosis inpatient and may require further testing and Rheumatology eval -Will start prednisone taper today Diarrhea- for 3 months, consider inflammatory bowel disease given above symptoms and new onset diarrhea- he denies hematochezia, work-up initially as noted above CAD- continue home ASA DVT ppx- enoxaparin Diagnosis/Problems: Clinical Quality Measures DVT/VTE Risk/Contraindication: Risk Factor Score Per Nursin RFS Level Per Nursing on Admit: 4+=Very High Copy Copies To 1: MASOOD Lopez BETHANY N MD Jul 20, 2017 9:42 am
[2017-07-20] MEDS ORDERED: DICL75TA2 PO (10:03)
[2017-07-20] MEDS ORDERED: ASPI-983 PO (10:04)
[2017-07-20] MEDS ORDERED: TRAM50TA2 PO (10:04)
[2017-07-20] MEDS: NS IV 1000 ML 1,000 ML IV SCH ×2 (10:08→12:59)
[2017-07-20 12:00] VITALS: BP 129/71
[2017-07-20] MEDS ORDERED: ENOXAPARIN 40 MG/0.4 ML (LOVENOX) SYR SC SCH (15:30)
[2017-07-20 16:00] VITALS: BP 108/61
--- NOTE | 2017-07-20 16:21 | Diagnostic Imaging Report ---
EXAMINATION: PA and lateral views of the chest. COMPARISON: 08/30/2015. FINDINGS: The lungs are hyperinflated. The pulmonary interstitium is prominent on a chronic basis. No focal infiltrate. A dense subcentimeter right perihilar nodule is suggestive of a calcified granuloma. There is obliteration of the left costophrenic angle, compatible with a small effusion. The heart size is normal. No pneumothorax. IMPRESSION: Small left pleural effusion. COPD. Dictated by: Dictated on workstation # [id number]
[2017-07-20] MEDS: predniSONE 20 MG TAB PO SCH (16:38)
--- NOTE | 2017-07-20 18:19 | Diagnostic Imaging Report ---
PROCEDURE: MR imaging cervical spine without contrast. TECHNIQUE: Multiplanar, multisequence MR imaging of the cervical spine was performed without contrast. INDICATION: Hand numbness. FINDINGS: The alignment of the posterior spinal line is satisfactory. The vertebral body heights are preserved. There is slight drop of signal in the lower aspect of the field in the cervical spine which could relate to technical reason with no obvious focal marrow abnormality. There is disc desiccation at all levels. There is mild thickening of the posterior longitudinal ligament. The spinal cord is normal in caliber, contour and signal. C2/3: There is mild disc spur complex with no spinal canal stenosis. There is uncovertebral joint hypertrophy on the right side resulting in moderate right neural foraminal stenosis. The left foramen is patent. C3/4: There is spur disc complex with no spinal canal stenosis. There is facet and uncovertebral joint hypertrophy resulting in bilateral foraminal stenosis severe on the right and moderate to severe on the left. C4/5: There is a spur disc complex with no central canal stenosis. The foramina demonstrate mild stenosis on the right and [id number] stenosis in the left. C5/6: There is a spur disc complex with no spinal canal stenosis. There is foraminal stenosis mild on the right and moderate to severe on the left. C6-7: There is spur disc complex and posterior ligamentous thickening with no significant spinal canal stenosis. The foramina demonstrate bilateral stenosis, severe on the left and moderate to severe on the right side. C7/T1: There is a spur disc complex with no spinal canal stenosis. The foramina demonstrate moderate to severe stenosis on both sides. IMPRESSION: Degenerative changes in the cervical spine. There is no spinal canal stenosis or compression at any level. There is multilevel neural foraminal narrowing. Dictated by: Dictated on workstation # [id number]
[2017-07-20 20:25] VITALS: BP 113/57
[2017-07-21 00:50] VITALS: BP 112/62
[2017-07-21] MEDS: NS IV 1000 ML 1,000 ML IV SCH (01:29)
[2017-07-21 04:40] VITALS: BP 104/61
[2017-07-21] MEDS: CATHETER FLUSH 10 ML SYR IV SCH (05:16)
[2017-07-21 08:00] VITALS: BP 123/71
[2017-07-21] MEDS ORDERED: TROUGH ORDER-PHARMACY XX NR (08:00)
[2017-07-21 08:29] LABS: BASOPHILS % (AUTO) 0 % (0-10); EOSINOPHILS % (AUTO) 0 % (0-10); LYMPHOCYTES # (AUTO) 1.5 X 10^3 (1.0-4.0); LYMPHOCYTES % (AUTO) 10 % (12-44); MEAN CORPUSCULAR HEMOGLOBIN 29 PG (25-34); MEAN CORPUSCULAR HGB CONC 33 G/DL (32-36); MEAN CORPUSCULAR VOLUME 88 FL (80-99); MEAN PLATELET VOLUME 8.8 FL (7.4-10.4); MONOCYTES # (AUTO) 0.8 X 10^3 (0.0-1.0); MONOCYTES % (AUTO) 5 % (0-12); NEUTROPHILS # (AUTO) 13.1 X 10^3 (1.8-7.8); NEUTROPHILS % (AUTO) 85 % (42-75); PLATELET COUNT 349 10^3/uL (130-400); RED BLOOD COUNT 3.78 10^6/uL (4.35-5.85); RED CELL DISTRIBUTION WIDTH 15.4 % (10.0-14.5); WHITE BLOOD COUNT 15.4 10^3/uL (4.3-11.0)
[2017-07-21 09:03] LABS: ALANINE AMINOTRANSFERASE 15 U/L (0-55); ANION GAP 9 MMOL/L (5-14); ASPARTATE AMINO TRANSFERASE 14 U/L (5-34); BILIRUBIN,TOTAL 0.3 MG/DL (0.1-1.0); BLOOD UREA NITROGEN 31 MG/DL (7-18); BUN/CREATININE RATIO 38; CALCIUM 8.3 MG/DL (8.5-10.1); CARBON DIOXIDE 17 MMOL/L (21-32); CHLORIDE 110 MMOL/L (98-107); CREATININE SERUM 0.82 MG/DL (0.60-1.30); GFR ESTIMATED > 60; GLUCOSE 109 MG/DL (70-105); POTASSIUM 4.3 MMOL/L (3.6-5.0); SODIUM 136 MMOL/L (135-145); TOTAL PROTEIN 5.4 GM/DL (6.4-8.2)
[2017-07-21] MEDS: predniSONE 20 MG TAB PO SCH (09:32)
[2017-07-21] MEDS: FAMOTIDINE 20 MG (PEPCID) TABLET PO SCH (09:32)
[2017-07-21] MEDS: VANCOMYCIN 1250 MG/NS 250 ML IVPB IV SCH ×2 (09:32)
[2017-07-21] MEDS ORDERED: FAMO20TA5 PO (12:23)
[2017-07-21] MEDS ORDERED: CLIN300C11 PO (12:23)
[2017-07-21] MEDS ORDERED: PRD20T PO (12:23)
--- NOTE | 2017-07-21 12:27 | Discharge Instructions ---
Discharge [facility] Discharge Medications New, Converted or Re-Newed RX: Transmitted to Pharmacy New Medications: Clindamycin HCl (Clindamycin HCl) 300 Mg Capsule 300 MG PO Q8H for 5 Days, #15 CAP 0 Refills Famotidine (Famotidine) 20 Mg Tablet 20 MG PO BID, #60 TAB 0 Refills Prednisone (Prednisone) 20 Mg Tab 0 PO UD, #10 TAB 0 Refills Take 4 tabs (40mg) daily, decrease by 1 tab (10mg) daily. Continued Medications: Aspirin (Aspirin EC) 81 Mg Tablet.dr 81 MG PO DAILY, TAB Diclofenac Sodium (Diclofenac Sodium) 75 Mg Tablet.dr 75 MG PO BID WITH MEALS, TAB Discontinued Medications: Tramadol HCl (Tramadol HCl) 50 Mg Tablet 50 MG PO Q4H PRN for PAIN-MODERATE, TAB Patient Instructions Goal/Follow Up Appt: Follow up with Victorino Knapp on 07/27 at 2 pm. Patient Instructions: Finish taking the antibiotics and steroids for your possible cellulitis and your joint pains. It is a good idea to take famotidine to protect your stomach while taking steroids and anti-inflammatory (diclofenac). Labs are still pending at discharge that Victorino can follow-up on- anti-CCP antibody, ARTURO, gonorrhea/chlamydia, HIV and hepatitis testing. Talk to Victorino about referring you to Rheumatology for further evaluation of your migrating joint pains and to Neurology for nerve testing for your numbness in your hand. Return to The Hospital For: Fever, inability to keep down medications, blood in stools Activity & Diet Discharge Diet: Regular Diet Activity as Tolerated: Yes Copy Copies To 1: MASOOD Lopez BETHANY N MD Jul 21, 2017 12:27 pm
--- NOTE | 2017-07-21 17:27 | Discharge Summary ---
Diagnosis/Chief Complaint Date of Admission Jul 19, 2017 at 20:54 Date of Discharge Jul 21, 2017 at 12:40 Admission Diagnosis Admission Diagnosis Bilateral wrist pain with possible cellulitis Decreased sensation right hand Migratory arthritis Diarrhea CAD Discharge Diagnosis Bilateral wrist pain with possible cellulitis- swelling and erythema on admission, no leukocytosis, fever, tachycardia, etc -Vancomycin started on admission and no erythema present the next morning- discharged with clindamycin to complete empiric course for possible cellulitis -Unclear etiology of pain- x-rays of bilateral wrists with mild degenerative changes, right hand this morning clearly swollen diffusely and with decreased sensation, see below Decreased sensation right hand- with additional complaint of neck popping sensations over last couple of months -Check C spine MRI- showed multilevel neuroforaminal stenosis, no central canal stenosis, recommend Neurology referral outpatient for EMG/NCS to determine etiology 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 RF negative. Symptoms concerning for an inflammatory arthritis, recommend referral to Rheumatology outpatient Diarrhea- for 3 months, consider inflammatory bowel disease given above symptoms and new onset diarrhea- he denies hematochezia, work-up initially as noted above CAD- continue home ASA Chief Complaint/HPI Chief Complaint/HPI Came in with bilateral wrist swelling and pain and right wrist had redness with streaks in addition on the palmar side and his left hand had fainter redness on the dorsal side. He also had swollen ankles and swelling in left popliteal fossa. He notes swelling and numbness in his fingertips of his right hands and feels in general as if his muscles "are trying to pull out from where they are attached". For 3 months he has been having attacks like this that start out with chills and fevers and then swelling of joints with associated pain he rates as 9-10/10. Episodes usually last 5-7 hours and subside and he feels sore afterward. First time this occurred in April was his shoulders, but since then all of his upper extremity joints, new this time is the lower extremity pain which did not resolve like previous episodes and that it was brought him in. He saw Victorino Knapp at clinic Jun 25 and was given diclofenac which seemed to help until the attack yesterday. Tramadol in past did not help. 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 Discharge Summary-Simple/Stand Consultations Discharge Physical Examination Allergies: Coded Allergies: No Known Drug Allergies (Unverified , 08/12/14) Vitals & I&Os Vital Sign - Last 12Hours Date Time Temp Pulse Resp B/P (MAP) Pulse Ox O2 Delivery O2 Flow Rate FiO2 07/21/17 12:40 07/21/17 08:00 97.9 41 20 97 Room Air Intake and Output 07/22/17 00:00 Intake Total 950 ml Balance 950 ml General Appearance: Alert, No Acute Distress Respiratory: Clear to Auscultation, Normal Air Movement Hospital Course See final discharge diagnosis. Labs Laboratory Tests Test 07/20/17 05:32 07/20/17 08:19 07/20/17 13:25 07/21/17 08:19 Range/Units White Blood Count 11.7 H 15.4 H 4.3-11.0 10^3/uL Red Blood Count 3.96 L 3.78 L 4.35-5.85 10^6/uL Hemoglobin 11.5 L 10.9 L 13.3-17.7 G/DL Hematocrit 35 L 33 L 40-54 % Mean Corpuscular Volume 87 88 80-99 FL Mean Corpuscular Hemoglobin 29 29 25-34 PG Mean Corpuscular Hemoglobin Concent 33 33 32-36 G/DL Red Cell Distribution Width 14.9 H 15.4 H 10.0-14.5 % Platelet Count 294 349 130-400 10^3/uL Mean Platelet Volume 8.3 8.8 7.4-10.4 FL Neutrophils (%) (Auto) 91 H 85 H 42-75 % Lymphocytes (%) (Auto) 7 L 10 L 12-44 % Monocytes (%) (Auto) 3 5 0-12 % Eosinophils (%) (Auto) 0 0 0-10 % Basophils (%) (Auto) 0 0 0-10 % Neutrophils # (Auto) 10.6 H 13.1 H 1.8-7.8 X 10^3 Lymphocytes # (Auto) 0.8 L 1.5 1.0-4.0 X 10^3 Monocytes # (Auto) 0.3 0.8 0.0-1.0 X 10^3 Eosinophils # (Auto) 0.0 0.0 0.0-0.3 10^3/uL Basophils # (Auto) 0.0 0.0 0.0-0.1 10^3/uL Neutrophils % (Manual) 96 % Lymphocytes % (Manual) 3 % Monocytes % (Manual) 1 % Poikilocytosis SLIGHT Erythrocyte Sedimentation Rate 50 H 0-30 MM/HR Sodium Level 136 136 135-145 MMOL/L Potassium Level 4.5 4.3 3.6-5.0 MMOL/L Chloride Level 107 110 H 98-107 MMOL/L Carbon Dioxide Level 22 17 L 21-32 MMOL/L Anion Gap 7 9 5-14 MMOL/L Blood Urea Nitrogen 33 H 31 H 7-18 MG/DL Creatinine 0.96 0.82 0.60-1.30 MG/DL Estimat Glomerular Filtration Rate > 60 > 60 BUN/Creatinine Ratio 34 38 Glucose Level 152 H 109 H 70-105 MG/DL Calcium Level 8.7 8.3 L 8.5-10.1 MG/DL Total Bilirubin 0.4 0.3 0.1-1.0 MG/DL Aspartate Amino Transf (AST/SGOT) 9 14 5-34 U/L Alanine Aminotransferase (ALT/SGPT) 10 15 0-55 U/L Alkaline Phosphatase 80 83 40-136 U/L C-Reactive Protein High Sensitivity 21.89 H 0.00-0.50 MG/DL Total Protein 6.0 L 5.4 L 6.4-8.2 GM/DL Albumin 3.1 L 3.0 L 3.2-4.5 GM/DL Rheumatoid Factor NEGATIVE NEGATIVE Vancomycin Level Trough 16.7 10.0-20.0 UG/ML Radiology Reviewed Wrist x-ray bilateral 07/19: IMPRESSION: 1. Mild degenerative pattern. No fracture, dislocation or osseous lesion. 2. No bony erosion. Chest x-ray 07/20: IMPRESSION: Small left pleural effusion. COPD. MRI cervical spine 07/20: FINDINGS: The alignment of the posterior spinal line is satisfactory. The vertebral body heights are preserved. There is slight drop of signal in the lower aspect of the field in the cervical spine which could relate to technical reason with no obvious focal marrow abnormality. There is disc desiccation at all levels. There is mild thickening of the posterior longitudinal ligament. The spinal cord is normal in caliber, contour and signal. C2/3: There is mild disc spur complex with no spinal canal stenosis. There is uncovertebral joint hypertrophy on the right side resulting in moderate right neural foraminal stenosis. The left foramen is patent. C3/4: There is spur disc complex with no spinal canal stenosis. There is facet and uncovertebral joint hypertrophy resulting in bilateral foraminal stenosis severe on the right and moderate to severe on the left. C4/5: There is a spur disc complex with no central canal stenosis. The foramina demonstrate mild stenosis on the right and omuotshb-nl-dxblel stenosis in the left. C5/6: There is a spur disc complex with no spinal canal stenosis. There is foraminal stenosis mild on the right and moderate to severe on the left. C6-7: There is spur disc complex and posterior ligamentous thickening with no significant spinal canal stenosis. The foramina demonstrate bilateral stenosis, severe on the left and moderate to severe on the right side. C7/T1: There is a spur disc complex with no spinal canal stenosis. The foramina demonstrate moderate to severe stenosis on both sides. IMPRESSION: Degenerative changes in the cervical spine. There is no spinal canal stenosis or compression at any level. There is multilevel neural foraminal narrowing. Discharge Instructions to patient/family Please see electronic discharge instructions given to patient. Discharge Medications Reviewed and agree with Discharge Medication list on patient's Discharge Instruction sheet Clinical Quality Measures DVT/VTE Risk/Contraindication: Risk Factor Score Per Nursin RFS Level Per Nursing on Admit: 4+=Very High Copy Copies To 1: MASOOD Lopez BETHANY N MD Jul 21, 2017 17:27
[2017-07-22 06:39] LABS: CHLAMYDIA DNA URINE Not Detected (Not Detected); NEISSERIA GONORRHEA DNA URINE Not Detected (Not Detected)
[2017-07-22 06:44] LABS: HIV AG AB SCREEN Non-Reactive (Non-Reactive)
== END 2017-07-21 12:40 | disposition home or self-care (01) | DRG 603 ==
LOC: EDUNIT# 16:49 → ER 16:50 → 4TH 20:54
PROVIDERS: ADMIT Family Medicine; ATTEND Family Medicine
DX: L03.113 Cellulitis of right upper limb (principal); L03.114 Cellulitis of left upper limb; F17.210 Nicotine dependence, cigarettes, uncomplicated; I25.10 Atherosclerotic heart disease of native coronary artery without angina pectoris; M06.4 Inflammatory polyarthropathy; R19.7 Diarrhea, unspecified; E78.00 Pure hypercholesterolemia, unspecified; I10 Essential (primary) hypertension; I25.2 Old myocardial infarction; Z95.5 Presence of coronary angioplasty implant and graft
CPT/HCPCS: 36415; 71020; 72141; 80053; 80202; 85007; 85025; 85027; 85652; 86038; 86141; 86200; 86430; 86703; 86803; 87491; 87591; 93005

== ENCOUNTER 2017-08-18 18:50 | Emergency (ER) | payer OTHER ==
[~2017-08-18] VITALS: Ht 185.4 cm; Wt 67.6 kg
[~2017-08-18 18:50] MED LIST changes: +CLIN300C11 PO; +DICL75TA2 PO; +FAMO20TA5 PO; +PRD20T PO; +TRAM50TA2 PO
[2017-08-18] MEDS ORDERED: NS IV 1000 ML 1,000 ML IV ONE (18:54)
[2017-08-18] MEDS ORDERED: morphine INJ 10 MG/ML 1ML (SYR OR VIAL) IV STA (18:54)
[2017-08-18] MEDS ORDERED: ASPIRIN 81 MG CHEW (CHILDREN'S ASA) PO ONE (19:00)
[2017-08-18] MEDS ORDERED: NITROGLYCERIN 0.4 MG SL TABS BTL 25'S SL PRN (19:00)
--- NOTE | 2017-08-18 19:02 | ED Chest Pain ---
General Stated Complaint: CP Source: patient, family Exam Limitations: no limitations History of Present Illness Time seen by provider: 18:50 Initial Comments Patient presents to ER by private conveyance with chief complaint of chest pain substernal severe radiating to his back times that came on about 10 minutes prior to arrival. He's had a history of stents and heart attacks but has been taken off all his medications except for aspirin for heart. He does not have diabetes hypothyroidism or hypertension at this time. He does smoke but is not spoken last couple days. He also has a history of COPD. He took his aspirin this morning and one tablet 81 mg. He had a wave of nausea initially but not right now. He has some shortness of breath. He does not have any inhalers or take anything for his COPD. He has not been immobilized or had any recent surgeries. For the past 2 or 3 days she's had some loose stools and diarrhea but not black tarry. Patient states in the last month and a half he has been receiving prescription NSAID therapy most recently on Mobic for his arthritis. 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 He says he also has numbness in his hands and feet. He says is been taking the Mobic as prescribed. Allergies and Home Medications Allergies Coded Allergies: No Known Drug Allergies (Unverified , 08/12/14) Home Medications Aspirin 81 Mg Tablet., 81 MG PO DAILY, (Reported) Clindamycin HCl 300 Mg Capsule, 300 MG PO Q8H for 5 Days, #15 Ref 0 Prescribed by: CELESTINA DALEY on 07/21/17 1223 Diclofenac Sodium 75 Mg Tablet., 75 MG PO BID WITH MEALS, (Reported) Famotidine 20 Mg Tablet, 20 MG PO BID, #60 Ref 0 Prescribed by: CELESTINA DALEY on 07/21/17 1223 Prednisone 20 Mg Tab, 0 PO UD, #10 Ref 0 Take 4 tabs (40mg) daily, decrease by 1 tab (10mg) daily. Prescribed by: CELESTINA DALEY on 07/21/17 1223 Review of Systems Constitutional: No chills, No fever EENTM: No Eye Pain, No Ear Pain Respiratory: Denies Cough, Shortness of Air Cardiovascular: Denies Chest Pain, Denies Edema Gastrointestinal: Denies Abdomen Distended, Denies Abdominal Pain, Denies Constipated, Diarrhea, Denies Difficulty Swallowing, Denies Vomiting Genitourinary: Denies Discharge, Denies Drainage Musculoskeletal: No back pain, No joint pain Skin: No pruritus, No rash Psychiatric/Neurological: Denies Headache, Denies Numbness, Denies Paresthesia Hematologic/Lymphatic: Denies Easy Bleeding, Denies Easy Bruising Past Llcrwzr-Jtuoym-Xzvdiu Hx Patient Social History Smoking Status: Current Everyday Smoker Type Used: Cigarettes 2nd Hand Smoke Exposure: Yes Recent Hopitalizations: No Seasonal Allergies Seasonal Allergies: No Surgeries History of Surgeries: Yes (CARDIAC CATH--STENTS X 3) Surgeries: Cardiac, Coronary Stent Respiratory History of Respiratory Disorde: Yes Respiratory Disorders: COPD Currently Using CPAP: No Currently Using BIPAP: No Cardiovascular History of Cardiac Disorders: Yes (STENTS) Cardiac Disorders: Coronary Artery Disease, Heart Attack, High Cholesterol, Hypertension Neurological History of Neurological Disord: No Reproductive System Hx Reproductive Disorders: No Sexually Transmitted Disease: No Genitourinary History of Genitourinary Disor: No Gastrointestinal History of Gastrointestinal Di: Yes Gastrointestinal Disorders: Gastroesophageal Reflux Musculoskeletal History of Musculoskeletal Dis: Yes (SHOULDER, ELBOW, HAND PAIN ) Endocrine History of Endocrine Disorders: No HEENT History of HEENT Disorders: No Cancer History of Cancer: No Psychosocial History of Psychiatric Problem: No Integumentary History of Skin or Integumenta: No Blood Transfusions History of Blood Disorders: No Adverse Reaction to a Blood Tr: No Family Medical History Significant Family History: Diabetes, Hypertension Family Medial History: Cardiovascular disease Cataracts Diabetes mellitus Glaucoma Hypertension Myocardial infarction Respiratory disorder Thyroid disease Visual disorder No Family History of: AIDS Abdominal aortic aneurysm Terry's disease Alcoholism Alzheimer's disease Aphasia Arthritis Asthma Cancer of mouth Colon cancer Completed stroke Congenital disease Congenital heart disease Coronary thrombosis Cystic fibrosis Deafness or hearing loss Dementia Drug abuse Dysphasia Fibrocystic disease of breast Gastroenteritis Headache disorder Hypercholesterolemia Infertility Kidney disease Neoplasm Not obtainable due to adoption Osteoporosis Parkinson's disease Prostate cancer Psychosocial problem Seizure disorder Severe allergy Tuberculosis Physical Exam Vital Signs Vital Sign - Last 12Hours Capillary Refill : General Appearance: WD/WN, Anxious, Moderate Distress (tearful) HEENT: PERRL/EOMI, Pharynx Normal Neck: Full Range of Motion, Supple Respiratory: Lungs Clear, No Accessory Muscle Use, No Respiratory Distress, Decreased Breath Sounds, Other (chest wall tenderness to palpation.) Cardiovascular: No Edema, No Murmur, Normal Peripheral Pulses, Other ( irregular rate) Gastrointestinal: Normal Bowel Sounds, No Organomegaly, Non Tender, Soft Extremity: Normal Capillary Refill, No Pedal Edema Neurologic/Psychiatric: Alert, Oriented x3 Skin: Normal Color, Warm/Dry Progress/Results/Core Measures Results/Orders Lab Results Laboratory Tests Test 08/18/17 19:00 08/18/17 21:33 Range/Units White Blood Count 5.8 4.3-11.0 10^3/uL Red Blood Count 4.59 4.35-5.85 10^6/uL Hemoglobin 12.8 L 13.3-17.7 G/DL Hematocrit 38 L 40-54 % Mean Corpuscular Volume 83 80-99 FL Mean Corpuscular Hemoglobin 28 25-34 PG Mean Corpuscular Hemoglobin Concent 33 32-36 G/DL Red Cell Distribution Width 15.6 H 10.0-14.5 % Platelet Count 419 H 130-400 10^3/uL Mean Platelet Volume 8.4 7.4-10.4 FL Neutrophils (%) (Auto) 67 42-75 % Lymphocytes (%) (Auto) 24 12-44 % Monocytes (%) (Auto) 9 0-12 % Eosinophils (%) (Auto) 0 0-10 % Basophils (%) (Auto) 0 0-10 % Neutrophils # (Auto) 3.9 1.8-7.8 X 10^3 Lymphocytes # (Auto) 1.4 1.0-4.0 X 10^3 Monocytes # (Auto) 0.5 0.0-1.0 X 10^3 Eosinophils # (Auto) 0.0 0.0-0.3 10^3/uL Basophils # (Auto) 0.0 0.0-0.1 10^3/uL Prothrombin Time 13.8 12.2-14.7 SEC INR Comment 1.1 0.8-1.4 Activated Partial Thromboplast Time 37 H 24-35 SEC D-Dimer 1.42 H 0.00-0.49 UG/ML Sodium Level 135 135-145 MMOL/L Potassium Level 4.7 3.6-5.0 MMOL/L Chloride Level 103 98-107 MMOL/L Carbon Dioxide Level 17 L 21-32 MMOL/L Anion Gap 15 H 5-14 MMOL/L Blood Urea Nitrogen 34 H 7-18 MG/DL Creatinine 1.06 0.60-1.30 MG/DL Estimat Glomerular Filtration Rate > 60 BUN/Creatinine Ratio 32 Glucose Level 105 70-105 MG/DL Calcium Level 9.4 8.5-10.1 MG/DL Magnesium Level 2.1 1.8-2.4 MG/DL Total Bilirubin 0.4 0.1-1.0 MG/DL Aspartate Amino Transf (AST/SGOT) 25 5-34 U/L Alanine Aminotransferase (ALT/SGPT) 28 0-55 U/L Alkaline Phosphatase 94 40-136 U/L Myoglobin 47.1 10.0-92.0 NG/ML Troponin I < 0.30 < 0.30 <0.30 NG/ML Total Protein 7.8 6.4-8.2 GM/DL Albumin 3.8 3.2-4.5 GM/DL Lipase 25 8-78 U/L Thyroid Stimulating Hormone (TSH) 3.00 0.35-4.94 UIU/ML My Orders Orders - LIDIAMYNOR Cbc With Automated Diff (08/18/17 18:54) Magnesium (08/18/17 18:54) Chest 1 View, Ap/Pa Only (08/18/17 18:54) Ekg Tracing (08/18/17 18:54) Cardiac Profile 1 (08/18/17 18:54) Comprehensive Metabolic Panel (08/18/17 18:54) Myoglobin Serum (08/18/17 18:54) Protime With Inr (08/18/17 18:54) Partial Thromboplastin Time (08/18/17 18:54) O2 (08/18/17 18:54) Monitor-Rhythm Ecg Trace Only (08/18/17 18:54) Lipid Panel (08/19/17 06:00) Aspirin Chewable Tablet (Baby Aspirin Ch (08/18/17 19:00) Nitroglycerin 0.4 Mg Btl 25's (Nitrostat (08/18/17 19:00) Morphine Injection (Morphine Injection (08/18/17 18:54) Saline Lock/Iv-Start (08/18/17 18:54) Lipase (08/18/17 18:54) Fibrin Degradation Products (08/18/17 18:54) Saline Lock/Iv-Start (08/18/17 18:54) Ns Iv 1000 Ml (Sodium Chloride 0.9%) (08/18/17 18:54) Drug Screen Stat (Urine) (08/18/17 18:54) Thyroid Stimulating Hormone (08/18/17 18:54) Ua Culture If Indicated (08/18/17 18:54) Loperamide Capsule (Imodium Capsule) (08/18/17 19:15) Ekg Tracing (08/18/17 22:00) Ekg Tracing (08/18/17 22:00) Troponin I (08/18/17 22:00) Medications Given in ED Current Medications Medications Dose Ordered Sig/Keegan Route Start Time Stop Time Status Last Admin Dose Admin Aspirin 324 mg ONCE ONCE PO 08/18/17 19:00 08/18/17 19:01 DC 08/18/17 19:07 324 MG Loperamide HCl 4 mg ONCE ONCE PO 08/18/17 19:15 08/18/17 19:16 DC 08/18/17 19:17 4 MG Nitroglycerin 0.4 mg UD PRN SL 08/18/17 19:00 08/18/17 19:08 0.4 MG Sodium Chloride 1,000 ml @ 0 mls/hr Q0M ONCE IV 08/18/17 18:54 08/18/17 18:58 DC 08/18/17 19:07 1,000 MLS/HR Vital Signs/I&O Vital Sign - Last 12Hours 08/18/17 08/18/17 08/18/17 08/18/17 18:50 18:50 18:50 19:23 Temp 98.6 Pulse 55 61 Resp 18 15 B/P (MAP) 124/88 139/85 Pulse Ox 99 100 100 O2 Delivery Nasal Cannula Nasal Cannula Nasal Cannula O2 Flow Rate 2.00 2.0 Intake and Output 08/19/17 00:00 Intake Total 1000 ml Balance 1000 ml Progress Note : Time: 19:03 Progress Note Heart scores is 4. if his initial troponin is negative. Would recommend discharge with a 2-3 hour delta T. Patient heart rate returns to 60s and is doing much better once he is calm down before we didn't have any intervention just by doing the EKG and putting some oxygen on him. He is satting at 99-100% on room air when he came in. There is some component of anxiety to this however is also possible cause of his diarrhea and chest pains could be linked to the recent use of Mobic/NSAIDs for his arthritis. D-dimer elevation is nonspecific as the patient is without immobilization, recent surgery, hemoptysis, cough, or shortness of breath that shows up with a actual decreased saturation. His shortness of breath seems to be more attributable to his anxiety and chest pain. ECG Initial ECG Impression Date: Aug 18, 2017 Initial ECG Impression Time: 18:51 Initial ECG Rate: 75 Initial ECG Rhythm: Normal Sinus Initial ECG Intervals: Normal Initial ECG Impression: Nonspecific Changes Comment Sinus pause with atrial escape. Supraventricular bigeminy. No T-wave elevation or depression. EKG : EKG Time: 21:31 Rate: 52 Rhythm: Normal Sinus Intervals: Normal ECG Comparisson: Unchanged ECG Impression: Normal, Nonspecific Changes Comment No T-wave elevation or depression. PACs. Diagnostic Imaging Diagonstic Imaging: Xray Plain Films/CT/US/NM/MRI: chest (1v) Comments No acute cardiopulmonary processes noted. COPD. 11 ribs above the diaphragm. NAME: FE CONNOR [facility] REC#: [id number] PHYSICIAN: MYNOR MURILLO MD CC: AMY GUERRA; MYNOR MURILLO Page 1 of 1 RADIOLOGY REPORT VIA [place], [place] CC: AMY GUERRA; MYNOR MURILLO Page 1 of 1 RADIOLOGY REPORT NAME: FE CONNOR [facility] REC#: [id number] PT STATUS: REG ER : 1955 PHYSICIAN: MYNOR MURILLO MD ADMIT DATE: 08/18/17/ER Signed Date of Exam: 08/18/17 CHEST 1 VIEW, AP/PA ONLY INDICATION: Chest pain and weakness. COMPARISON: 07/20/17 FINDINGS: Single view of the chest demonstrates clear lungs bilaterally. The heart is normal. There is no pneumothorax. Osseous structures are age-appropriate. Effusion in the left base has resolved. IMPRESSION: Negative chest. Dictated by: Dictated on workstation # [id number] Dict: 08/18/171922 Trans: 08/18/171927 Interpreted by: AMY GUERRA Electronically signed by: AMY GUERRA 08/18/171927 Reviewed: Reviewed by Me Consults Consults : Consulting Physician: Janee BERMUDEZ MD Consults Notes 2024: Okay with doing a three-hour delta T and following up with Dr. Molina. Departure Impression Impression: Primary Impression: Chest pain Qualified Codes: R07.9 - Chest pain, unspecified Disposition: HOME, SELF-CARE Condition: Stable Departure-Patient Inst. Decision time for Depature: 22:23 Referrals: [facility] (PCP/Family) Primary Care Physician Patient Instructions: Chest Pain That Is Not Caused by the Heart (DC) Add. Discharge Instructions: For now Discontinue all NSAIDs such as Aleve, Naprosyn, Motrin, ibuprofen, Mobic , ketorolac, diclofenac. Call Dr. Molina at his clinic at [phone] and get an appointment to be seen this week. If you begin to have chest pain take a tablet of nitroglycerin sublingually and apply under the tongue every 5 minutes. If you use 3 tablets and 15 minutes and still do not get your chest pain under control return to the ER. Copy Copies To 1: GERHARD SIU DO Copies To 2: DANNY MOLINA MD, TITUS J Aug 18, 2017 19:02
[2017-08-18 19:09] LABS: BASOPHILS % (AUTO) 0 % (0-10); EOSINOPHILS % (AUTO) 0 % (0-10); LYMPHOCYTES # (AUTO) 1.4 X 10^3 (1.0-4.0); LYMPHOCYTES % (AUTO) 24 % (12-44); MEAN CORPUSCULAR HEMOGLOBIN 28 PG (25-34); MEAN CORPUSCULAR HGB CONC 33 G/DL (32-36); MEAN CORPUSCULAR VOLUME 83 FL (80-99); MEAN PLATELET VOLUME 8.4 FL (7.4-10.4); MONOCYTES # (AUTO) 0.5 X 10^3 (0.0-1.0); MONOCYTES % (AUTO) 9 % (0-12); NEUTROPHILS # (AUTO) 3.9 X 10^3 (1.8-7.8); NEUTROPHILS % (AUTO) 67 % (42-75); PLATELET COUNT 419 10^3/uL (130-400); RED BLOOD COUNT 4.59 10^6/uL (4.35-5.85); RED CELL DISTRIBUTION WIDTH 15.6 % (10.0-14.5); WHITE BLOOD COUNT 5.8 10^3/uL (4.3-11.0)
[2017-08-18] MEDS ORDERED: LOPERAMIDE 2 MG (IMODIUM) CAP PO ONE (19:15)
[2017-08-18 19:18] LABS: INR 1.1 (0.8-1.4); PROTHROMBIN TIME PATIENT 13.8 SEC (12.2-14.7)
[2017-08-18 19:23] VITALS: BP 139/85
--- NOTE | 2017-08-18 19:28 | Diagnostic Imaging Report ---
INDICATION: Chest pain and weakness. COMPARISON: 07/20/17 FINDINGS: Single view of the chest demonstrates clear lungs bilaterally. The heart is normal. There is no pneumothorax. Osseous structures are age-appropriate. Effusion in the left base has resolved. IMPRESSION: Negative chest. Dictated by: Dictated on workstation # [id number]
[2017-08-18 19:29] LABS: ALANINE AMINOTRANSFERASE 28 U/L (0-55); ALBUMIN 3.8 GM/DL (3.2-4.5); ANION GAP 15 MMOL/L (5-14); ASPARTATE AMINO TRANSFERASE 25 U/L (5-34); BILIRUBIN,TOTAL 0.4 MG/DL (0.1-1.0); BLOOD UREA NITROGEN 34 MG/DL (7-18); BUN/CREATININE RATIO 32; CALCIUM 9.4 MG/DL (8.5-10.1); CARBON DIOXIDE 17 MMOL/L (21-32); CHLORIDE 103 MMOL/L (98-107); CREATININE SERUM 1.06 MG/DL (0.60-1.30); GFR ESTIMATED > 60; GLUCOSE 105 MG/DL (70-105); LIPASE 25 U/L (8-78); MAGNESIUM 2.1 MG/DL (1.8-2.4); POTASSIUM 4.7 MMOL/L (3.6-5.0); SODIUM 135 MMOL/L (135-145); TOTAL PROTEIN 7.8 GM/DL (6.4-8.2)
[2017-08-18 19:49] LABS: MYOGLOBIN SERUM 47.1 NG/ML (10.0-92.0)
[2017-08-18] MEDS ORDERED: RX-ONDANSETRON 4 MG ODT (ZOFRAN) PPK #4 PO STA (22:31)
[2017-08-18] MEDS ORDERED: PROM25TA14 PO (22:35)
[2017-08-18 22:43] VITALS: BP 134/89
[2017-08-18] MEDS ORDERED: PROMETHAZINE 25 MG (PHENERGAN) TAB PO ONE (22:45)
== END 2017-08-18 22:42 | disposition home or self-care (01) ==
LOC: EDUNIT# 18:50 → ER 18:51
DX: R07.9 Chest pain, unspecified (principal); I25.2 Old myocardial infarction; Z95.5 Presence of coronary angioplasty implant and graft; F17.210 Nicotine dependence, cigarettes, uncomplicated; J44.9 Chronic obstructive pulmonary disease, unspecified; I10 Essential (primary) hypertension; E78.00 Pure hypercholesterolemia, unspecified; K21.9 Gastro-esophageal reflux disease without esophagitis
CPT/HCPCS: 36415; 71010; 80053; 83690; 83735; 83874; 84443; 84484; 85025; 85379; 85610; 85730; 93005; 93041

== ENCOUNTER 2017-08-20 16:10 | Observation (INO) | payer OTHER ==
[~2017-08-20] VITALS: Ht 185.4 cm; Wt 60.8 kg
[2017-08-20 16:10] VITALS: BP 154/89
[~2017-08-20 16:10] MED LIST changes: +PROM25TA14 PO
[2017-08-20] MEDS: fentaNYL INJECTION 100 MCG/2 ML AMP IV PRN ×2 (16:39→20:21)
[2017-08-20] MEDS: LACTATED RINGERS 1,000 ML IV SCH (16:42)
[2017-08-20] MEDS ORDERED: CATHETER FLUSH 10 ML SYR IV PRN (16:45)
[2017-08-20] MEDS ORDERED: ONDANSETRON 4 MG/2 ML (SDV) Z0FRAN IV PRN (16:45)
[2017-08-20 16:47] LABS: BASOPHILS % (AUTO) 0 % (0-10); EOSINOPHILS % (AUTO) 0 % (0-10); LYMPHOCYTES # (AUTO) 1.8 X 10^3 (1.0-4.0); LYMPHOCYTES % (AUTO) 22 % (12-44); MEAN CORPUSCULAR HEMOGLOBIN 28 PG (25-34); MEAN CORPUSCULAR HGB CONC 33 G/DL (32-36); MEAN CORPUSCULAR VOLUME 83 FL (80-99); MEAN PLATELET VOLUME 8.2 FL (7.4-10.4); MONOCYTES # (AUTO) 0.7 X 10^3 (0.0-1.0); MONOCYTES % (AUTO) 8 % (0-12); NEUTROPHILS # (AUTO) 5.8 X 10^3 (1.8-7.8); NEUTROPHILS % (AUTO) 69 % (42-75); PLATELET COUNT 434 10^3/uL (130-400); RED BLOOD COUNT 4.75 10^6/uL (4.35-5.85); RED CELL DISTRIBUTION WIDTH 15.5 % (10.0-14.5); WHITE BLOOD COUNT 8.3 10^3/uL (4.3-11.0)
[2017-08-20] MEDS ORDERED: INFLUENZA TRIvalent 2017-2018 0.5 ML/45 MCG SYR IM ONE ×2 (17:00→17:15)
[2017-08-20 17:07] LABS: ALANINE AMINOTRANSFERASE 18 U/L (0-55); ALBUMIN 3.7 GM/DL (3.2-4.5); AMYLASE 29 U/L (25-125); ANION GAP 11 MMOL/L (5-14); ASPARTATE AMINO TRANSFERASE 16 U/L (5-34); BILIRUBIN,TOTAL 0.6 MG/DL (0.1-1.0); BLOOD UREA NITROGEN 28 MG/DL (7-18); BUN/CREATININE RATIO 33; CALCIUM 9.2 MG/DL (8.5-10.1); CARBON DIOXIDE 21 MMOL/L (21-32); CHLORIDE 102 MMOL/L (98-107); CREATININE SERUM 0.84 MG/DL (0.60-1.30); GFR ESTIMATED > 60; GLUCOSE 102 MG/DL (70-105); LIPASE 13 U/L (8-78); POTASSIUM 4.2 MMOL/L (3.6-5.0); SODIUM 134 MMOL/L (135-145); TOTAL PROTEIN 7.5 GM/DL (6.4-8.2)
--- NOTE | 2017-08-20 17:23 | Diagnostic Imaging Report ---
PROCEDURE: US Gallbladder. TECHNIQUE: Multiple real-time grayscale images were obtained over the right upper quadrant in various projections. INDICATION: Right upper quadrant pain. FINDINGS: Gallbladder appeared normal. No stone or sludge. The liver parenchyma normal. There is no intrahepatic or extrahepatic bile duct dilatation. The unobstructed right kidney was normal. There is no ascites or fluid collection. Visualized portions of the pancreas unremarkable. IMPRESSION: Normal right upper quadrant ultrasound. Dictated by: Dictated on workstation # [id number]
[2017-08-20] MEDS ORDERED: DIATRIZOATE MEGLUM/SODIUM 37% 120 ML (GASTROGRAFIN) PO ONE (18:00)
[2017-08-20] MEDS ORDERED: IOHEXOL 350 MG/ML 100 ML (OMNIPAQUE 350) VIAL IV ONE (18:00)
[2017-08-20] MEDS ORDERED: NS 100 ML (IVPB) BAG IV ONE (18:00)
--- NOTE | 2017-08-20 18:53 | Diagnostic Imaging Report ---
PROCEDURE: CT abdomen and pelvis with contrast. TECHNIQUE: Multiple contiguous axial images were obtained through the abdomen and pelvis after administration of intravenous contrast. INDICATION: Abdominal pain, diarrhea. FINDINGS: The lungs show changes of centrilobular emphysema with no acute infiltrate. The liver, gallbladder, and bile ducts appeared normal. The spleen, adrenals, and pancreas are normal. The kidneys were unobstructed, nonfocal, and nonacute. The atherosclerotic abdominal aorta has mild fusiform aneurysmal dilatation infrarenally, 3.4 cm maximal; no rupture. The iliac and femoral arteries where visualized are nonaneurysmal. The celiac, superior mesenteric, and inferior mesenteric arteries all appeared unremarkable. No findings of end organ ischemia. No bowel obstruction. No perienteric or pericolonic edema. There appears to be a minute amount of free fluid in Morison's pouch. The gallbladder appeared normal. No pelvic ascites. The urinary bladder is normal. The urinary tracts are unobstructed. IMPRESSION: Atherosclerotic infrarenal abdominal aortic aneurysm without rupture. Likely minute ascites in Morison's pouch in the right upper quadrant. No bowel, biliary, or urinary tract obstruction and no focal inflammatory process. Basilar COPD. Dictated by: Dictated on workstation # [id number]
[2017-08-20] MEDS ORDERED: PIPERACILLIN SODIUM/TAZOBACTAM 4.5 GM in NS (IVPB) 100 ML IV ONE (19:30)
[2017-08-20 19:50] VITALS: BP 147/77
[2017-08-20] MEDS ORDERED: PIPERACILLIN SODIUM/TAZOBACTAM 4.5 GM in NS (IVPB) 100 ML IV NR (20:00)
[2017-08-20] MEDS: PANTOPRAZOLE 40 MG/10 ML (PROTONIX) VIAL IV SCH ×2 (20:20→20:37)
[2017-08-20] MEDS ORDERED: ACETAMINOPHEN 325 MG TABLET/CAPLET (TYLENOL) PO PRN (20:45)
[2017-08-20] MEDS ORDERED: NS IV 1000 ML 1,000 ML IV SCH (22:15)
[2017-08-21 00:36] VITALS: BP 102/63
[2017-08-21] MEDS: PIPERACILLIN SODIUM/TAZOBACTAM 4.5 GM in NS (IVPB) 100 ML IV SCH ×2 (01:36→09:45)
[2017-08-21] MEDS ORDERED: NS IV 1000 ML 1,000 ML IV SCH (02:00)
[2017-08-21] MEDS: LACTATED RINGERS 1,000 ML IV SCH (03:40)
[2017-08-21] MEDS: fentaNYL INJECTION 100 MCG/2 ML AMP IV PRN (03:40)
[2017-08-21 04:00] VITALS: BP 144/81
[2017-08-21 08:00] VITALS: BP 114/66
[2017-08-21] MEDS ORDERED: ASPIRIN E.C. 81 MG (ECOTRIN) TAB PO SCH (09:00)
[2017-08-21] MEDS ORDERED: MELO15TA39 PO (09:03)
[2017-08-21] MEDS ORDERED: GABA-488 PO (09:03)
[2017-08-21] MEDS ORDERED: IBUP-30 PO (09:03)
[2017-08-21] MEDS ORDERED: SULF-222 PO (09:03)
[2017-08-21] MEDS ORDERED: PROM25TA14 PO (09:03)
[2017-08-21] MEDS ORDERED: FAMO20TA3 PO (09:03)
[2017-08-21] MEDS: PANTOPRAZOLE 40 MG/10 ML (PROTONIX) VIAL IV SCH (09:44)
--- NOTE | 2017-08-21 11:59 | Progress Note (SOAP) ---
Subjective Date Seen by Provider: Aug 21, 2017 Time Seen by Provider: 11:56 Subjective/Events-last exam severity of right upper quadrant and epigastric pain much resolved.feeling hungry and passing flatus. Ultrasound negative for gallstones. CT scan was negative for pneumoperitoneum. Review of Systems General: No Chills, No Night Sweats, No Fatigue, No Malaise HEENT: No Head Aches, No Eye Pain, No Ear Pain, No Dysphasia, No Sinus Congestion, No Post Nasal Drip, No Sore Throat Pulmonary: No Dyspnea, No Cough, No Pleuritic Chest Pain Cardiovascular: No: Chest Pain, Palpitations, Orthopnea, Paroxysmal Noc. Dyspnea, Edema, Lt Headedness Gastrointestinal: Diarrhea Genitourinary: No Dysuria, No Frequency, No Incontinence, No Hematuria, No Retention Musculoskeletal: No: other, neck pain, shoulder pain, arm pain, back pain, hand pain, leg pain, foot pain Neurological: No: Weakness, Numbness, Incoordination, Change in speech, Confusion, Seizures, Other Objective Exam Vital Signs Date Time Temp Pulse Resp B/P (MAP) Pulse Ox O2 Delivery O2 Flow Rate FiO2 08/21/17 08:00 98.7 64 20 114/66 97 Room Air 08/21/17 04:00 97.8 60 18 144/81 94 Room Air 08/21/17 00:36 99.0 78 19 102/63 97 Room Air 08/20/17 22:05 99.5 08/20/17 20:37 101.1 08/20/17 19:50 101.1 80 20 147/77 96 Room Air 08/20/17 16:10 97.9 68 22 154/89 99 Room Air Capillary Refill : General Appearance: No Apparent Distress Neck: Normal Inspection Respiratory: Lungs Clear Cardiovascular: Regular Rate, Rhythm Gastrointestinal: non tender, soft Extremity: Normal Inspection Neurologic/Psychiatric: Alert, Oriented x3 Skin: Warm/Dry Results Lab Laboratory Tests 08/20/17 16:34: White Blood Count 8.3, Red Blood Count 4.75, Hemoglobin 13.2L, Hematocrit 40, Mean Corpuscular Volume 83, Mean Corpuscular Hemoglobin 28, Mean Corpuscular Hemoglobin Concent 33, Red Cell Distribution Width 15.5H, Platelet Count 434H, Mean Platelet Volume 8.2, Neutrophils (%) (Auto) 69, Lymphocytes (%) (Auto) 22, Monocytes (%) (Auto) 8, Eosinophils (%) (Auto) 0, Basophils (%) (Auto) 0, Neutrophils # (Auto) 5.8, Lymphocytes # (Auto) 1.8, Monocytes # (Auto) 0.7, Eosinophils # (Auto) 0.0, Basophils # (Auto) 0.0, Sodium Level 134L, Potassium Level 4.2, Chloride Level 102, Carbon Dioxide Level 21, Anion Gap 11, Blood Urea Nitrogen 28H, Creatinine 0.84, Estimat Glomerular Filtration Rate > 60, BUN /Creatinine Ratio 33, Glucose Level 102, Calcium Level 9.2, Total Bilirubin 0.6 , Aspartate Amino Transf (AST/SGOT) 16, Alanine Aminotransferase (ALT/SGPT) 18, Alkaline Phosphatase 90, Total Protein 7.5, Albumin 3.7, Amylase Level 29, Lipase 13 Assessment/Plan Assessment/Plan Assess & Plan/Chief Complaint gentleman with a 3 day history of acute right upper quadrant and epigastric pain. Negative radiologic evaluation. Very likely peptic ulcer disease as the culprit. Could be discharged home on proton pump inhibitors. Upper GI endoscopy scheduled for August Final Diagnosis right upper quadrant abdominal pain Clinical Quality Measures DVT/VTE Risk/Contraindication: Risk Factor Score Per Nursin RFS Level Per Nursing on Admit: 4+=Very High DAGOBERTO DONALDSON MD Aug 21, 2017 11:59 am
--- NOTE | 2017-08-21 12:01 | Discharge Inst-Simple/Standard ---
Discharge Inst-Standard Discharge Medications New, Converted or Re-Newed RX: Call to Patients Pharmacy Patient Instructions/Follow Up Plan of Care/Instructions/FU: please call for Protonix 40 mg daily for 30 days to his pharmacy. 3 refills. Please have him return to the surgery Center at 1230 on Thursday, nothing by mouth from 5 a.m. may have a.m. medications with a sip of water Activity as Tolerated: Yes Discharge Diet: Soft Diet DAGOBERTO DONALDSON MD Aug 21, 2017 12:01 pm
[2017-08-21 12:45] VITALS: BP 114/66
== END 2017-08-21 12:00 | disposition home or self-care (01) ==
LOC: 4TH 16:10
PROVIDERS: ADMIT Surgery; ATTEND Surgery
DX: R10.11 Right upper quadrant pain (principal); R10.13 Epigastric pain; R11.2 Nausea with vomiting, unspecified; R19.7 Diarrhea, unspecified; I71.4 Abdominal aortic aneurysm, without rupture; I10 Essential (primary) hypertension; I25.10 Atherosclerotic heart disease of native coronary artery without angina pectoris; K21.9 Gastro-esophageal reflux disease without esophagitis; I34.0 Nonrheumatic mitral (valve) insufficiency; I36.1 Nonrheumatic tricuspid (valve) insufficiency; Z79.82 Long term (current) use of aspirin; Z79.899 Other long term (current) drug therapy; F17.210 Nicotine dependence, cigarettes, uncomplicated
CPT/HCPCS: 36415; 74177; 76705; 80053; 82150; 83690; 85025; 99211; G0378

== ENCOUNTER 2017-08-24 11:55 | Day surgery (SDC) | payer OTHER ==
[~2017-08-24] VITALS: Ht 185.4 cm; Wt 60.8 kg
[~2017-08-24 11:55] MED LIST changes: +FAMO20TA3 PO; +GABA-488 PO; +MELO15TA39 PO; +SULF-222 PO
[2017-08-24] MEDS ORDERED: NS IV 500 ML 500 ML ONE (12:42)
[2017-08-24] MEDS ORDERED: NS IV 500 ML 500 ML IV ONE (12:45)
[2017-08-24 13:10] VITALS: BP 118/86
[2017-08-24] MEDS ORDERED: PANT40TA2 PO (13:34)
--- NOTE | 2017-08-24 14:20 | Conscious Sedation/ASA ---
Conscious Sedation Pre-Proced Time Reviewed: 14:19 ASA Class: 3 Airway Mallampati Classification: (habematolel appropriate class) I. II. III, IV Lungs Heart ASA score ASA 1: a normal healthy patient ASA 2: a patient with a mild systemic disease (mid diabetes, controlled hypertension, obesity ASA 3: a patient with a severe systemic disease that limits activity (angina , COPD, prior Myocardial infarction) ASA 4: a patient with an incapacitating disease that is a constant threat to life (CHF, renal failure) ASA 5: a moribund patient not expected to survive 24 hrs. (ruptured aneurysm) ASA 6: a declared brain patient whose organs are being harvested. For emergent operations, add the letter E after the classification Grade 2 Sedation Plan: Discussed options with patient/fam Note The patient is an appropriate candidate to undergo the planned procedure, sedation, and anesthesia. The patient immediately re-assessed prior to indication. DAGOBERTO DONALDSON MD Aug 24, 2017 2:20 pm
[2017-08-24] MEDS ORDERED: fentaNYL INJECTION 100 MCG/2 ML AMP ONE ×2 (15:01→15:05)
[2017-08-24] MEDS ORDERED: HURRICAINE EXT TUBE (BENZOCAINE) ONE (15:02)
[2017-08-24] MEDS ORDERED: MIDAZOLAM 2 MG/2 ML (VERSED) VIAL ONE ×3 (15:02)
[2017-08-24] MEDS: MIDAZOLAM 2 MG/2 ML (VERSED) VIAL IVP PRN ×3 (15:39→15:46)
[2017-08-24] MEDS: fentaNYL INJECTION 100 MCG/2 ML AMP IVP PRN ×2 (15:40→15:45)
[2017-08-24 16:05] VITALS: BP 119/73
--- NOTE | 2017-08-24 16:06 | Endo Procedure Record ---
Endo Procedure Report Date of Procedure Aug 24, 2017 Surgeon (s) DAGOBERTO DONALDSON MD Post Procedure/Op Diagnosis multiple distal gastric and proximal duodenal ulcers and erosions. 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 pylori Description of Procedure Anesthesia Type: Conscious Sedation Specimen(s) collected/removed antral mucosa for H. pylori Description of the Procedure indication for procedure: The stomach came in for an upper endoscopy to investigate epigastric pain. Gallbladder ultrasound and a CT scan were negative for any acute issues. A 3.4 cm aortic aneurysm has been discovered and I have recommended surveillance. Informed consent was obtained after reviewing the procedure in detail. Description of procedure: He was placed in left lateral decubitus position and his vital signs were monitored.conscious sedation was achieved using Versed and fentanyl. The flexible gastroscope was introduced down the esophagus, past the stomach, into the proximal duodenum. Findings: Esophagus: An uncomplicated hiatal hernia. Stomach: 1. Multiple distal erosions and shallow ulcers with no active bleeding 2. A few, nonbleeding AV malformations less than a millimeter in size at the antrum Duodenum: Nonbleeding shallow erosions at the first part he tolerated the procedure well and was taken back to the nursing area in a stable condition. Impression: Epigastric pain. Distal gastric and duodenal ulcers and erosions. Helicobacter status pending. We'll treat with proton pump inhibitors. Copies To: DANNY PRATER MD Copies To: GELY DIAZ MD, XAVIER M MD Aug 24, 2017 4:06 pm
--- NOTE | 2017-08-24 16:08 | Discharge Inst-Simple/Standard ---
Discharge Inst-Standard Discharge Medications New, Converted or Re-Newed RX: Other Patient Instructions/Follow Up Plan of Care/Instructions/FU: To increase protonix to BID.follow-up with me in 3 weeks. to avoid nonsteroidals Activity as Tolerated: Yes Discharge Diet: No Restrictions DAGOBERTO DONALDSON MD Aug 24, 2017 4:08 pm
[2017-08-24 16:35] VITALS: BP 114/75
[2017-08-24 16:45] VITALS: BP 114/75
== END 2017-08-24 16:50 | disposition home or self-care (01) ==
LOC: ENDO 11:55
PROVIDERS: ATTEND Surgery
DX: K25.9 Gastric ulcer, unspecified as acute or chronic, without hemorrhage or perforation (principal); K26.9 Duodenal ulcer, unspecified as acute or chronic, without hemorrhage or perforation; K31.811 Angiodysplasia of stomach and duodenum with bleeding; K44.9 Diaphragmatic hernia without obstruction or gangrene; I71.4 Abdominal aortic aneurysm, without rupture; I25.10 Atherosclerotic heart disease of native coronary artery without angina pectoris; I10 Essential (primary) hypertension; Z79.82 Long term (current) use of aspirin; Z79.899 Other long term (current) drug therapy

== ENCOUNTER 2017-10-04 21:23 | Emergency (ER) | payer OTHER ==
[~2017-10-04] VITALS: Ht 185.4 cm; Wt 68.0 kg
[~2017-10-04 21:23] MED LIST changes: -METO-270 PO; +METO-387 PO; +PANT40TA2 PO
[2017-10-04] MEDS ORDERED: PRD20T (21:36)
--- NOTE | 2017-10-04 21:44 | ED Cardiac General ---
History of Present Illness General Chief Complaint: Chest Pain Stated Complaint: AB PAIN R HAND SWOLLEN Source: patient Exam Limitations: no limitations History of Present Illness Time seen by provider: 21:41 Initial Comments To ER with right parasternal border chest pain. This began 4 hours ago and has been constant. At the time of onset he was working with family and friends down in [place]. Pain has been constant and presence and intensity. There are no worsening or alleviating factors. Pain did not improve with rest. No associated dyspnea. No cough. He does have a history of peptic ulcers diagnosed in August of this year by endoscopy here showing several ulcers but without active bleeding. He does have a history of 2 coronary stents placed 2 years ago following MS. He also reports right wrist redness and swelling that began 1 hour ago. He states intermittently that his joints will become red swollen and painful which follows a diagnosis of Lyme disease earlier this year. Timing/Duration: constant Location: central Activities at Onset: activity NTG SL RHEOLOGIST: No ASA po RHEOLOGIST: No Allergies and Home Medications Allergies Coded Allergies: No Known Drug Allergies (Unverified , 08/20/17) Home Medications Aspirin 81 Mg Tablet.dr, 81 MG PO DAILY, (Reported) Oxycodone HCl/Acetaminophen 1 Each Tablet, 1 EACH PO Q4H PRN for PAIN-SEVERE, # 10 Prescribed by: TORI SEGURA on 10/04/172243 Pantoprazole Sodium 40 Mg Tablet.dr, 40 MG PO DAILY, (Reported) Pantoprazole Sodium 40 Mg Granpkt.dr, 40 MG PO DAILY, #20 Prescribed by: TORI SEGURA on 10/04/172243 Prednisone 20 Mg Tab, (Reported) Prednisone 20 Mg Tab, 60 MG PO DAILY, #9 Prescribed by: TORI SEGURA on 10/04/172243 Sucralfate 1 Gm/10 Ml Oral.susp, 1 GM PO ACHS, #400 Prescribed by: TORI SEGURA on 10/04/172243 Review of Systems Constitutional: see HPI EENTM: No Symptoms Reported Respiratory: No Symptoms Reported, Denies Cough, Denies Shortness of Air, Denies SOA With Exertion, Denies SOA at Rest Cardiovascular: See HPI Gastrointestinal: See HPI, Denies Abdominal Pain, Denies Diarrhea, Denies Nausea, Denies Vomiting Genitourinary: No Symptoms Reported Musculoskeletal: no symptoms reported Skin: no symptoms reported Psychiatric/Neurological: No Symptoms Reported Past Ncoygsm-Ecfaca-Nfgoyz Hx Patient Social History Type Used: Cigarettes 2nd Hand Smoke Exposure: Yes Recent Foreign Travel: No Contact w/Someone Who Travel: No Recent Hopitalizations: No Immunizations Up To Date Tetanus Booster (TDap): Unknown Seasonal Allergies Seasonal Allergies: No Surgeries History of Surgeries: Yes (CARDIAC CATH--STENTS X 3) Surgeries: Cardiac, Coronary Stent Respiratory History of Respiratory Disorde: Yes Respiratory Disorders: COPD Currently Using CPAP: No Currently Using BIPAP: No Cardiovascular History of Cardiac Disorders: Yes (STENTS) Cardiac Disorders: Coronary Artery Disease, Heart Attack, High Cholesterol, Hypertension Neurological History of Neurological Disord: No Reproductive System Hx Reproductive Disorders: No Sexually Transmitted Disease: No Genitourinary History of Genitourinary Disor: No Gastrointestinal History of Gastrointestinal Di: Yes Gastrointestinal Disorders: Gastroesophageal Reflux Musculoskeletal History of Musculoskeletal Dis: Yes (SHOULDER, ELBOW, HAND PAIN ) Musculoskeletal Disorders: Arthritis Endocrine History of Endocrine Disorders: No HEENT History of HEENT Disorders: No Cancer History of Cancer: No Psychosocial History of Psychiatric Problem: No Integumentary History of Skin or Integumenta: No Blood Transfusions History of Blood Disorders: No Adverse Reaction to a Blood Tr: No Family Medical History Significant Family History: Diabetes, Hypertension Family Medial History: Cardiovascular disease Cataracts Diabetes mellitus Glaucoma Hypertension Myocardial infarction Respiratory disorder Thyroid disease Visual disorder No Family History of: AIDS Abdominal aortic aneurysm Girard's disease Alcoholism Alzheimer's disease Aphasia Arthritis Asthma Cancer of mouth Colon cancer Completed stroke Congenital disease Congenital heart disease Coronary thrombosis Cystic fibrosis Deafness or hearing loss Dementia Drug abuse Dysphasia Fibrocystic disease of breast Gastroenteritis Headache disorder Hypercholesterolemia Infertility Kidney disease Neoplasm Not obtainable due to adoption Osteoporosis Parkinson's disease Prostate cancer Psychosocial problem Seizure disorder Severe allergy Tuberculosis Physical Exam Vital Signs Vital Sign - Last 12Hours 10/04/17 21:37 Temp 99.1 Pulse 95 Resp 16 B/P (MAP) 128/83 (98) Pulse Ox 97 O2 Delivery Room Air Capillary Refill : General Appearance: No Apparent Distress, WD/WN HEENT: PERRL/EOMI, TMs Normal Neck: Full Range of Motion, Normal Inspection Respiratory: No Accessory Muscle Use, No Respiratory Distress, Decreased Breath Sounds Cardiovascular: Regular Rate, Rhythm Gastrointestinal: Normal Bowel Sounds, Non Tender, Soft Neurologic/Psychiatric: Alert, Oriented x3 Skin: Normal Color, Warm/Dry Progress/Results/Core Measures Results/Orders Lab Results Laboratory Tests Test 10/04/17 21:40 10/04/17 22:16 Range/Units White Blood Count 9.6 4.3-11.0 10^3/uL Red Blood Count 4.47 4.35-5.85 10^6/uL Hemoglobin 13.0 L 13.3-17.7 G/DL Hematocrit 38 L 40-54 % Mean Corpuscular Volume 85 80-99 FL Mean Corpuscular Hemoglobin 29 25-34 PG Mean Corpuscular Hemoglobin Concent 34 32-36 G/DL Red Cell Distribution Width 17.5 H 10.0-14.5 % Platelet Count 295 130-400 10^3/uL Mean Platelet Volume 8.4 7.4-10.4 FL Neutrophils (%) (Auto) 76 H 42-75 % Lymphocytes (%) (Auto) 16 12-44 % Monocytes (%) (Auto) 7 0-12 % Eosinophils (%) (Auto) 1 0-10 % Basophils (%) (Auto) 0 0-10 % Neutrophils # (Auto) 7.3 1.8-7.8 X 10^3 Lymphocytes # (Auto) 1.6 1.0-4.0 X 10^3 Monocytes # (Auto) 0.7 0.0-1.0 X 10^3 Eosinophils # (Auto) 0.1 0.0-0.3 10^3/uL Basophils # (Auto) 0.0 0.0-0.1 10^3/uL Erythrocyte Sedimentation Rate 31 H 0-30 MM/HR D-Dimer 0.96 H 0.00-0.49 UG/ML Sodium Level 138 135-145 MMOL/L Potassium Level 4.1 3.6-5.0 MMOL/L Chloride Level 103 98-107 MMOL/L Carbon Dioxide Level 23 21-32 MMOL/L Anion Gap 12 5-14 MMOL/L Blood Urea Nitrogen 34 H 7-18 MG/DL Creatinine 1.13 0.60-1.30 MG/DL Estimat Glomerular Filtration Rate > 60 BUN/Creatinine Ratio 30 Glucose Level 102 70-105 MG/DL Calcium Level 9.3 8.5-10.1 MG/DL Magnesium Level 2.0 1.8-2.4 MG/DL Total Bilirubin 0.7 0.1-1.0 MG/DL Aspartate Amino Transf (AST/SGOT) 14 5-34 U/L Alanine Aminotransferase (ALT/SGPT) 15 0-55 U/L Alkaline Phosphatase 76 40-136 U/L Troponin I < 0.30 <0.30 NG/ML C-Reactive Protein High Sensitivity 8.26 H 0.00-0.50 MG/DL Total Protein 7.2 6.4-8.2 GM/DL Albumin 3.8 3.2-4.5 GM/DL Lipase 17 8-78 U/L Urine Color YELLOW Urine Clarity CLEAR Urine pH 5 5-9 Urine Specific [place] 1.025 H 1.016-1.022 Urine Protein NEGATIVE NEGATIVE Urine Glucose (UA) NEGATIVE NEGATIVE Urine Ketones NEGATIVE NEGATIVE Urine Nitrite NEGATIVE NEGATIVE Urine Bilirubin NEGATIVE NEGATIVE Urine Urobilinogen NORMAL NORMAL MG/DL Urine Leukocyte Esterase NEGATIVE NEGATIVE Urine RBC (Auto) 2+ H NEGATIVE Urine RBC 0-2 /HPF Urine WBC NONE /HPF Urine Squamous Epithelial Cells 0-2 /HPF Urine Crystals NONE /LPF Urine Bacteria NEGATIVE /HPF Urine Casts NONE /LPF Urine Mucus LARGE H /LPF Urine Culture Indicated NO Urine Opiates Screen POSITIVE H NEGATIVE Urine Oxycodone Screen NEGATIVE NEGATIVE Urine Methadone Screen NEGATIVE NEGATIVE Urine Propoxyphene Screen NEGATIVE NEGATIVE Urine Barbiturates Screen NEGATIVE NEGATIVE Ur Tricyclic Antidepressants Screen NEGATIVE NEGATIVE Urine Phencyclidine Screen NEGATIVE NEGATIVE Urine Amphetamines Screen NEGATIVE NEGATIVE Urine Methamphetamines Screen NEGATIVE NEGATIVE Urine Benzodiazepines Screen NEGATIVE NEGATIVE Urine Cocaine Screen NEGATIVE NEGATIVE Urine Cannabinoids Screen POSITIVE H NEGATIVE My Orders Orders - TORI SEGURA APRN Cbc With Automated Diff (10/04/17 21:39) Comprehensive Metabolic Panel (10/04/17 21:39) Lipase (10/04/17 21:39) Ua Culture If Indicated (10/04/17 21:39) Drug Screen Stat (Urine) (10/04/17 21:39) Saline Lock/Iv-Start (10/04/17 21:39) Chest Pa/Lat (2 View) (10/04/17 21:39) Fibrin Degradation Products (10/04/17 21:39) Troponin I (10/04/17 21:39) Magnesium (10/04/17 21:39) Ekg Tracing (10/04/17 21:39) Famotidine Injection (Pepcid Injection) (10/04/17 21:45) Antacid Suspension (Mylanta Suspension (10/04/17 21:45) Lidocaine 2% Viscous 15 Ml (Xylocaine Vi (10/04/17 21:45) Morphine Injection (Morphine Injection (10/04/17 21:45) Erythrocyte Sedimentation Rate (10/04/17 21:48) Hs C Reactive Protein (10/04/17 21:48) Methylprednisolone Sod Succ (Solu-Medrol (10/04/17 22:00) Ct Angio Chest W (10/04/17 21:56) Ekg Tracing (10/04/17 22:12) Ns Iv 1000 Ml (Sodium Chloride 0.9%) (10/04/17 22:45) Cephalexin Capsule (Keflex Capsule) (10/04/17 22:45) Medications Given in ED Current Medications Medications Dose Ordered Sig/Keegan Route Start Time Stop Time Status Last Admin Dose Admin Al Hydrox/Mg Hydrox/Simethicone 30 ml ONCE ONCE PO 10/04/17 21:45 10/04/17 21:46 DC 10/04/17 21:48 30 ML Cephalexin HCl 500 mg ONCE ONCE PO 10/04/17 22:45 10/04/17 22:46 DC 10/04/17 22:47 500 MG Famotidine 20 mg ONCE ONCE IVP 10/04/17 21:45 10/04/17 21:46 DC 10/04/17 21:49 20 MG Lidocaine HCl 15 ml ONCE ONCE PO 10/04/17 21:45 10/04/17 21:46 DC 10/04/17 21:48 15 ML Methylprednisolone Sodium Succinate 125 mg ONCE ONCE IVP 10/04/17 22:00 10/04/17 22:01 DC 10/04/17 21:55 125 MG Morphine Sulfate 5 mg ONCE ONCE IVP 10/04/17 21:45 10/04/17 21:46 DC 10/04/17 21:49 5 MG Vital Signs/I&O Vital Sign - Last 12Hours 10/04/17 10/04/17 21:37 21:37 Temp 99.1 Pulse 95 Resp 16 B/P (MAP) 128/83 (98) Pulse Ox 97 O2 Delivery Room Air Room Air Departure Impression Impression: Primary Impression: Peptic ulcer disease Additional Impression: Migratory arthritis Disposition: 01 HOME, SELF-CARE Condition: Stable Departure-Patient Inst. Decision time for Depature: 22:42 Referrals: [facility] (PCP/Family) Primary Care Physician Patient Instructions: Chest Pain That Is Not Caused by the Heart (DC) Add. Discharge Instructions: 1. See your doctor tomorrow 2. REturn to ER for any concerns 3. All discharge instructions reviewed with patient and/or family. Voiced understanding. Scripts Cephalexin (Keflex) 500 Mg Capsule 500 MG PO TID, #15 CAP Prov: TORI SEGURA APRN 10/04/17 Oxycodone HCl/Acetaminophen (Percocet 5-325 mg Tablet) 1 Each Tablet 1 EACH PO Q4H Y for PAIN-SEVERE, #10 TAB Prov: TORI SEGURA APRN 10/04/17 Pantoprazole Sodium (Protonix) 40 Mg Granpkt.dr 40 MG PO DAILY, #20 TAB Prov: TORI SEGURA APRN 10/04/17 Sucralfate (Carafate) 1 Gm/10 Ml Oral.susp 1 GM PO ACHS, #400 ML Prov: TORI SEGURA APRN 10/04/17 Prednisone (Prednisone) 20 Mg Tab 60 MG PO DAILY, #9 TAB Prov: TORI SEGURA APRN 10/04/17 Images Torso/Trunk 1 - Other-See Progress Note TORI SEGURA APRN Oct 04, 2017 21:44
[2017-10-04] MEDS ORDERED: FAMOTIDINE 20MG/2ML IV (PEPCID) IVP ONE (21:45)
[2017-10-04] MEDS ORDERED: ANTACID SUSP 30 ML UDC (MYLANTA) PO ONE (21:45)
[2017-10-04] MEDS ORDERED: LIDOCAINE 2% VISCOUS 15 ML UDC PO ONE (21:45)
[2017-10-04] MEDS ORDERED: morphine INJ 10 MG/ML 1ML (SYR OR VIAL) IVP ONE (21:45)
[2017-10-04 21:50] LABS: BASOPHILS % (AUTO) 0 % (0-10); EOSINOPHILS # (AUTO) 0.1 10^3/uL (0.0-0.3); EOSINOPHILS % (AUTO) 1 % (0-10); LYMPHOCYTES # (AUTO) 1.6 X 10^3 (1.0-4.0); LYMPHOCYTES % (AUTO) 16 % (12-44); MEAN CORPUSCULAR HEMOGLOBIN 29 PG (25-34); MEAN CORPUSCULAR HGB CONC 34 G/DL (32-36); MEAN CORPUSCULAR VOLUME 85 FL (80-99); MEAN PLATELET VOLUME 8.4 FL (7.4-10.4); MONOCYTES # (AUTO) 0.7 X 10^3 (0.0-1.0); MONOCYTES % (AUTO) 7 % (0-12); NEUTROPHILS # (AUTO) 7.3 X 10^3 (1.8-7.8); NEUTROPHILS % (AUTO) 76 % (42-75); PLATELET COUNT 295 10^3/uL (130-400); RED BLOOD COUNT 4.47 10^6/uL (4.35-5.85); RED CELL DISTRIBUTION WIDTH 17.5 % (10.0-14.5); WHITE BLOOD COUNT 9.6 10^3/uL (4.3-11.0)
[2017-10-04] MEDS ORDERED: methylPREDNISolone 125 MG (Solu-MEDROL) VIAL IVP ONE (22:00)
[2017-10-04 22:14] LABS: ALANINE AMINOTRANSFERASE 15 U/L (0-55); ALBUMIN 3.8 GM/DL (3.2-4.5); ANION GAP 12 MMOL/L (5-14); ASPARTATE AMINO TRANSFERASE 14 U/L (5-34); BILIRUBIN,TOTAL 0.7 MG/DL (0.1-1.0); BLOOD UREA NITROGEN 34 MG/DL (7-18); BUN/CREATININE RATIO 30; CALCIUM 9.3 MG/DL (8.5-10.1); CARBON DIOXIDE 23 MMOL/L (21-32); CHLORIDE 103 MMOL/L (98-107); CREATININE SERUM 1.13 MG/DL (0.60-1.30); GFR ESTIMATED > 60; GLUCOSE 102 MG/DL (70-105); LIPASE 17 U/L (8-78); POTASSIUM 4.1 MMOL/L (3.6-5.0); SODIUM 138 MMOL/L (135-145); TOTAL PROTEIN 7.2 GM/DL (6.4-8.2)
[2017-10-04 22:20] LABS: TROPONIN I < 0.30 NG/ML (<0.30)
[2017-10-04 22:24] LABS: BILIRUBIN,URINE NEGATIVE (NEGATIVE); KETONES,URINE NEGATIVE (NEGATIVE); LEUKOCYTE ESTERASE ,URINE NEGATIVE (NEGATIVE); NITRITE,URINE NEGATIVE (NEGATIVE); PH,URINE 5 (5-9); PROTEIN,URINE NEGATIVE (NEGATIVE); UROBILINOGEN,URINE NORMAL (NORMAL)
[2017-10-04 22:33] LABS: SQUAMOUS EPITHELIAL CELL,UR 0-2 /HPF
[2017-10-04] MEDS ORDERED: PRD20T PO (22:44)
[2017-10-04] MEDS ORDERED: SUCR1ORA5 PO (22:44)
[2017-10-04] MEDS ORDERED: PANT40SU PO (22:44)
[2017-10-04] MEDS ORDERED: OXYC-197 PO (22:44)
[2017-10-04] MEDS ORDERED: NS IV 1000 ML 1,000 ML IV SCH (22:45)
[2017-10-04] MEDS ORDERED: CEPHALEXIN 250 MG (KEFLEX) CAP PO ONE (22:45)
[2017-10-04] MEDS ORDERED: CEPH-507 PO (22:50)
[2017-10-04 23:35] VITALS: BP 145/66
--- NOTE | 2017-10-05 07:18 | Diagnostic Imaging Report ---
PROCEDURE: CT angiography of the chest with contrast. TECHNIQUE: Multiple contiguous axial images were obtained through the chest after uneventful bolus administration of intravenous contrast. Reconstructed CTA MIP acquisitions were also performed. INDICATION: Chest and abdominal pain. FINDINGS: There is extensive centrilobular emphysema throughout the lungs. There is no evidence of consolidation. There is good opacification of pulmonary arteries without intraluminal filling defect. Thoracic aorta is also unremarkable. There is no evidence of focal infiltrate or pathologic adenopathy in the chest. Densely calcified granuloma is noted in the right lower lobe. IMPRESSION: Extensive centrilobular emphysema without evidence of pulmonary embolism or other acute abnormality in the chest. Dictated by: Dictated on workstation # [id number]
--- NOTE | 2017-10-05 07:20 | Diagnostic Imaging Report ---
INDICATION: Chest and abdominal pain PA and lateral views of the chest are obtained. Comparison is made to study of 08/18/2017. Overall heart size and pulmonary vascularity are within normal limits. There is no evidence of pneumothorax or consolidation. There is diffuse air trapping indicating emphysema. No pneumothorax or significant pleural fluid is identified. IMPRESSION: Bilateral air trapping consistent with emphysema. Otherwise, no acute abnormality is identified. Dictated by: Dictated on workstation # [id number]
== END 2017-10-04 23:31 | disposition home or self-care (01) ==
LOC: EDUNIT# 21:23 → ER 21:24
DX: K27.9 Peptic ulcer, site unspecified, unspecified as acute or chronic, without hemorrhage or perforation (principal); M13.0 Polyarthritis, unspecified; J44.9 Chronic obstructive pulmonary disease, unspecified; I25.10 Atherosclerotic heart disease of native coronary artery without angina pectoris; E78.00 Pure hypercholesterolemia, unspecified; I25.2 Old myocardial infarction; I10 Essential (primary) hypertension; K21.9 Gastro-esophageal reflux disease without esophagitis; Z95.5 Presence of coronary angioplasty implant and graft; Z77.22 Contact with and (suspected) exposure to environmental tobacco smoke (acute) (chronic); Z82.49 Family history of ischemic heart disease and other diseases of the circulatory system; Z79.82 Long term (current) use of aspirin; Z87.19 Personal history of other diseases of the digestive system
CPT/HCPCS: 36415; 71020; 71275; 80053; 80306; 81000; 83690; 83735; 84484; 85025; 85379; 85652; 86141; 93005

== ENCOUNTER → 2017-10-07 | Outpatient (CLI) | payer OTHER ==
[~2017-10-07] VITALS: Ht 185.4 cm; Wt 70.3 kg
[~2017-10-07] MED LIST changes: +CATHETER FLUSH 10 ML SYR IV SCH; +CEPH-507 PO; +OXYC-197 PO; +PANT40SU PO; +PRD20T; +REGADENOSON 0.4 MG/5 ML SYR (LEXISCAN) IV ONE; +SUCR1ORA5 PO
[2017-10-07 13:37] VITALS: BP 163/102
--- NOTE | 2017-10-07 22:33 | STRESS TEST ---
DATE OF SERVICE: 10/07/2017 LEXISCAN MYOVIEW STRESS TEST REPORT REFERRING PHYSICIAN: [facility]. Baseline heart rate is 56. Baseline blood pressure 163/102. Baseline EKG is sinus rhythm with nonspecific T-wave abnormality. SUMMARY: The patient was injected with 10.12 mCi of technetium-99 Myoview and the resting images were obtained. Then, the patient received 0.4 mg of Lexiscan followed by 30.7 mCi of technetium-99 Myoview. Throughout the test, there were no EKG changes. The resting and stress images were reviewed and compared in the short axis, horizontal long axis and vertical long axis views. Review of the images showed good radiotracer uptake with no significant ischemia or infarction. SSS is 2. SDS 0. TID value 1.02. On the gated images, the left ventricle appeared to be in normal size with normal contractility. Calculated ejection fraction 52%. CONCLUSION: 1. The patient tolerated Lexiscan well. 2. Diaphragmatic attenuation with no significant ischemia or infarction on SPECT images. 3. Normal left ventricular size with normal contractility. Calculated ejection fraction 52%. Job ID: [id number] DocumentID: [id number] Dictated Date: 10/07/2017 16:16:18 Policy Loan Calculator Date: 10/07/2017 19:28:18 Dictated By: DANNY PRATER MD
== END ==
LOC: CARD 11:17
PROVIDERS: ATTEND Internal Medicine Cardiovascular Disease
DX: I25.10 Atherosclerotic heart disease of native coronary artery without angina pectoris (principal); I10 Essential (primary) hypertension; I34.0 Nonrheumatic mitral (valve) insufficiency; R07.89 Other chest pain; Z72.0 Tobacco use
CPT/HCPCS: 78452; 93017

== ENCOUNTER → 2017-10-07 | Outpatient (CLI) | payer OTHER ==
[~2017-10-07] MED LIST changes: -CATHETER FLUSH 10 ML SYR IV SCH; -REGADENOSON 0.4 MG/5 ML SYR (LEXISCAN) IV ONE
== END ==
LOC: CARD 11:14
PROVIDERS: ATTEND Internal Medicine Cardiovascular Disease
DX: I25.10 Atherosclerotic heart disease of native coronary artery without angina pectoris (principal); I10 Essential (primary) hypertension; I34.0 Nonrheumatic mitral (valve) insufficiency; R07.89 Other chest pain; Z72.0 Tobacco use
CPT/HCPCS: 93306

== ENCOUNTER 2017-10-26 21:26 | Inpatient (IN) | payer OTHER ==
[~2017-10-26] VITALS: Ht 185.4 cm; Wt 70.3 kg
--- OUTSIDE RECORDS SUMMARY | 2017-10-26 21:32 | XMS REPORT | Continuity of Care Document ---
Author Author [facility] Organization [facility] Address Unknown Phone Unavailable Allergies Active Description Code Type Severity Reaction Onset Reported/Identified Relationship to Patient Clinical Status Yes No Known Drug Allergies [id number] Drug Allergy Unknown N/A 08/20/2017 Medications There is no data. Problems Date Dx Coded Attending Type Code Diagnosis Diagnosed By 08/14/2014 ANTONIO PETERS FACC, SKYLER GEIGERS Ot 305.1 TOBACCO USE DISORDER 08/14/2014 ANTONIO [...] I10 ESSENTIAL (PRIMARY) HYPERTENSION 09/01/2015 DANNY PRATER MD Ot I21.4 NON-ST ELEVATION (NSTEMI) MYOCARDIAL INF 09/01/2015 DANNY PRATER MD, Ot I25.10 ATHSCL HEART DISEASE OF [place] CORONARY 09/01/2015 DANNY PRATER MD Ot K21.9 GASTRO-ESOPHAGEAL REFLUX DISEASE WITHOUT 09/01/2015 DANNY PRATER MD Ot Z82.49 FAMILY HX OF ISCHEM HEART DIS AND OTH DI 07/18/2016 DANNY PRATER MD, Ot I10 ESSENTIAL (PRIMARY) HYPERTENSION 07/18/2016 DANNY PRATER MD, Ot I25.10 ATHSCL HEART DISEASE OF [place] CORONARY 07/18/2016 DANNY PRATER MD Ot I34.0 NONRHEUMATIC MITRAL (VALVE) INSUFFICIENC 07/18/2016 DANNY PRATER MD Ot R07.9 CHEST PAIN, UNSPECIFIED 07/18/2016 DANNY PRATER MD Ot Z72.0 TOBACCO USE 08/07/2016 DANNY PRATER MD Ot I10 ESSENTIAL (PRIMARY) HYPERTENSION 08/07/2016 DANNY PRATER MD Ot I25.10 ATHSCL HEART DISEASE OF [place] CORONARY 08/07/2016 DANNY PRATER MD Ot I34.0 NONRHEUMATIC MITRAL (VALVE) INSUFFICIENC 08/07/2016 DANNY PRATER MD Ot R07.9 CHEST PAIN, UNSPECIFIED 08/07/2016 DANNY PRATER MD Ot Z72.0 TOBACCO USE 06/19/2017 DANNY PRATER MD, Ot I10 ESSENTIAL (PRIMARY) HYPERTENSION 06/19/2017 DANNY PRATER MD Ot I25.10 ATHSCL HEART DISEASE OF [place] CORONARY 06/19/2017 DANNY PRATER MD Ot I34.0 NONRHEUMATIC MITRAL (VALVE) INSUFFICIENC 06/19/2017 DANNY PRATER MD Ot R07.9 CHEST PAIN, UNSPECIFIED 06/19/2017 DANNY PRATER MD Ot Z72.0 TOBACCO USE 06/19/2017 TAY CARRASQUILLO DO Ot F17.200 NICOTINE DEPENDENCE, UNSPECIFIED, UNCOMP 06/19/2017 TAY CARRASQUILLO DO Ot I25.2 OLD MYOCARDIAL INFARCTION 06/19/2017 TAY CARRASQUILLO DO Ot J44.9 CHRONIC OBSTRUCTIVE PULMONARY DISEASE, U 06/19/2017 TAY CARRASQUILLO DO Ot K21.9 GASTRO-ESOPHAGEAL REFLUX DISEASE WITHOUT 06/19/2017 TAY CARRASQUILLO DO Ot M19.011 PRIMARY OSTEOARTHRITIS, RIGHT SHOULDER 06/19/2017 TAY CARRASQUILLO DO Ot M19.012 PRIMARY OSTEOARTHRITIS, LEFT SHOULDER 06/19/2017 TAY CARRASQUILLO DO Ot M25.511 PAIN IN RIGHT SHOULDER 06/19/2017 TAY CARRASQUILLO DO Ot Z79.82 [facility] (CURRENT) USE OF ASPIRIN 06/19/2017 TAY CARRASQUILLO DO Ot Z82.49 FAMILY HX OF ISCHEM HEART DIS AND OTH DI 06/19/2017 DANNY PRATER MD Ot I10 ESSENTIAL (PRIMARY) HYPERTENSION 06/19/2017 DANNY PRATER MD Ot I25.10 ATHSCL HEART DISEASE OF [place] CORONARY 06/19/2017 DANNY PRATER MD Ot I34.0 NONRHEUMATIC MITRAL (VALVE) INSUFFICIENC 06/19/2017 DANNY PRATER MD Ot R07.9 CHEST PAIN, UNSPECIFIED 06/19/2017 DANNY PRATER MD Ot Z72.0 TOBACCO USE 06/22/2017 NEIDA WHITE TAY Wendy Ot F17.200 NICOTINE DEPENDENCE, UNSPECIFIED, UNCOMP 06/22/2017 TAY CARRASQUILLO DO Ot I25.2 OLD MYOCARDIAL INFARCTION 06/22/2017 TAY CARRASQIULLO DO Ot J44.9 CHRONIC OBSTRUCTIVE PULMONARY DISEASE, U 06/22/2017 TAY CARRASQUILLO DO Ot K21.9 GASTRO-ESOPHAGEAL REFLUX DISEASE WITHOUT 06/22/2017 NEIDA WHITE TAY K Ot M19.011 PRIMARY OSTEOARTHRITIS, RIGHT SHOULDER 06/22/2017 NEIDA WHITE TAY K Ot M19.012 PRIMARY OSTEOARTHRITIS, LEFT SHOULDER 06/22/2017 NEIDA WHITE TAY K Ot M25.511 PAIN IN RIGHT SHOULDER 06/22/2017 NEIDA WHITE TAY K Ot Z79.82 [facility]DC (CURRENT) USE OF ASPIRIN 06/22/2017 NEIDA WHITE TAY Wendy Ot Z82.49 FAMILY HX OF ISCHEM HEART DIS AND OTH DI 07/21/2017 AMY LEAL MD Ot E78.00 PURE HYPERCHOLESTEROLEMIA, UNSPECIFIED 07/21/2017 AYM LEAL MD Ot F17.210 NICOTINE DEPENDENCE, CIGARETTES, UNCOMPL 07/21/2017 AMY LEAL MD Ot I10 ESSENTIAL (PRIMARY) HYPERTENSION 07/21/2017 AMY LEAL MD, Ot I25.10 ATHSCL HEART DISEASE OF [place] CORONARY 07/21/2017 AMY LEAL MD, Ot I25.2 OLD MYOCARDIAL INFARCTION 07/21/2017 AMY LEAL MD Ot L03.113 CELLULITIS OF RIGHT UPPER LIMB 07/21/2017 AMY LEAL MD Ot L03.114 CELLULITIS OF LEFT UPPER LIMB 07/21/2017 AMY LEAL MD Ot M06.4 INFLAMMATORY POLYARTHROPATHY 07/21/2017 AMY LEAL MD Ot R19.7 DIARRHEA, UNSPECIFIED 07/21/2017 AMY LEAL MD Ot Z95.5 PRESENCE OF CORONARY ANGIOPLASTY IMPLANT 08/18/2017 MYNOR MURILLO MD J Ot E78.00 PURE HYPERCHOLESTEROLEMIA, UNSPECIFIED 08/18/2017 MYNOR MURILLO MD J Ot F17.210 NICOTINE DEPENDENCE, CIGARETTES, UNCOMPL 08/18/2017 MYNOR MURILLO MD J Ot I10 ESSENTIAL (PRIMARY) HYPERTENSION 08/18/2017 MYNOR MURILLO MD J Ot I25.2 OLD MYOCARDIAL INFARCTION 08/18/2017 MYNOR MURILLO MD J Ot J44.9 CHRONIC OBSTRUCTIVE PULMONARY DISEASE, U 08/18/2017 MYNOR MURILLO MD J Ot K21.9 GASTRO-ESOPHAGEAL REFLUX DISEASE WITHOUT 08/18/2017 MYNOR MURILLO MD J Ot R07.9 CHEST PAIN, UNSPECIFIED 08/18/2017 MYNOR MURILLO MD J Ot Z95.5 PRESENCE OF CORONARY ANGIOPLASTY IMPLANT 08/20/2017 MYNOR MURILLO MD J Ot E78.00 PURE HYPERCHOLESTEROLEMIA, UNSPECIFIED 08/20/2017 MYNOR MURILLO MD J Ot F17.210 NICOTINE DEPENDENCE, CIGARETTES, UNCOMPL 08/20/2017 MYNOR MURILLO MD J Ot I10 ESSENTIAL (PRIMARY) HYPERTENSION 08/20/2017 MYNOR MURILLO MD J Ot I25.2 OLD MYOCARDIAL INFARCTION 08/20/2017 MYNOR MURILLO MD J Ot J44.9 CHRONIC OBSTRUCTIVE PULMONARY DISEASE, U 08/20/2017 MYNOR MURILLO MD J Ot K21.9 GASTRO-ESOPHAGEAL REFLUX DISEASE WITHOUT 08/20/2017 MYNOR MURILLO MD J Ot R07.9 CHEST PAIN, UNSPECIFIED 08/20/2017 MYNOR MURILLO MD J Ot Z95.5 PRESENCE OF CORONARY ANGIOPLASTY IMPLANT 08/21/2017 DAGOBERTO DONALDSON MD Ot F17.210 NICOTINE DEPENDENCE, CIGARETTES, UNCOMPL 08/21/2017 DAGOBERTO DONALDSON MD Ot I10 ESSENTIAL (PRIMARY) HYPERTENSION 08/21/2017 DAGOBERTO DONALDSON MD Ot I25.10 ATHSCL HEART DISEASE OF [place] CORONARY 08/21/2017 DAGOBERTO DONALDSON MD Ot I34.0 NONRHEUMATIC MITRAL (VALVE) INSUFFICIENC 08/21/2017 DAGOBERTO DONALDSON MD Ot I36.1 NONRHEUMATIC TRICUSPID (VALVE) INSUFFICI 08/21/2017 DAGOBERTO DONALDSON MD Ot I71.4 ABDOMINAL AORTIC ANEURYSM, WITHOUT RUPTU 08/21/2017 DAGOBERTO DONALDSON MD Ot K21.9 GASTRO-ESOPHAGEAL REFLUX DISEASE WITHOUT 08/21/2017 DAGOBERTO DONALDSON MD Ot R10.11 RIGHT UPPER QUADRANT PAIN 08/21/2017 DAGOBERTO DONALDSON MD Ot R10.13 EPIGASTRIC PAIN 08/21/2017 DAGOBERTO DONALDSON MD Ot R11.2 NAUSEA WITH VOMITING, UNSPECIFIED 08/21/2017 DAGOBERTO DONALDSON MD Ot R19.7 DIARRHEA, UNSPECIFIED 08/21/2017 DAGOBERTO DONALDSON MD Ot Z79.82 FDC (CURRENT) USE OF ASPIRIN 08/21/2017 DAGOBERTO DONALDSON MD Ot 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 08/21/2017 DANNY PRATER MD Ot I10 ESSENTIAL (PRIMARY) HYPERTENSION 08/21/2017 DANNY PRATER MD Ot I25.10 ATHSCL HEART DISEASE OF [place] CORONARY 08/21/2017 DANNY PRATER MD Ot I34.0 NONRHEUMATIC MITRAL (VALVE) INSUFFICIENC 08/21/2017 DANNY PRATER MD Ot R07.9 CHEST PAIN, UNSPECIFIED 08/21/2017 DANNY PRATER MD Ot Z72.0 TOBACCO USE 08/24/2017 DANNY PRATER MD Ot I10 ESSENTIAL (PRIMARY) HYPERTENSION 08/24/2017 DANNY PRATER MD Ot I25.10 ATHSCL HEART DISEASE OF [place] CORONARY 08/24/2017 DANNY PRATER MD Ot I34.0 NONRHEUMATIC MITRAL (VALVE) INSUFFICIENC 08/24/2017 DANNY PRATER MD Ot R07.9 CHEST PAIN, UNSPECIFIED 08/24/2017 DANNY PRATER MD Ot Z72.0 TOBACCO USE 08/24/2017 DAGOBERTO DONALDSON MD Ot I10 ESSENTIAL (PRIMARY) HYPERTENSION 08/24/2017 DAGOBERTO DONALDSON MD Ot I25.10 ATHSCL HEART DISEASE OF [place] CORONARY 08/24/2017 DAGOBERTO DONALDSON MD Ot I71.4 ABDOMINAL AORTIC ANEURYSM, WITHOUT RUPTU 08/24/2017 DAGOBERTO DONALDSON MD Ot K25.9 GASTRIC ULCER, UNSP ACUTE OR CHRONIC, 08/24/2017 DAGOBERTO DONALDSON MD Ot K26.9 DUODENAL ULCER, UNSP ACUTE OR CHRONIC 08/24/2017 DAGOBERTO DONALDSON MD Ot K31.811 ANGIODYSPLASIA OF STOMACH AND DUODENUM W 08/24/2017 DAGOBERTO DONALDSON MD Ot K44.9 DIAPHRAGMATIC HERNIA WITHOUT OBSTRUCTION 08/24/2017 DAGOBERTO DONALDSON MD Ot Z79.82 [facility]DC (CURRENT) USE OF ASPIRIN 08/24/2017 DAGOBERTO DONALDSON MD Ot 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 08/25/2017 DAGOBERTO DONALDSON MD Ot I10 ESSENTIAL (PRIMARY) HYPERTENSION 08/25/2017 DAGOBERTO DONALDSON MD Ot I25.10 ATHSCL HEART DISEASE OF [place] CORONARY 08/25/2017 DAGOBERTO DONALDSON MD Ot I71.4 ABDOMINAL AORTIC ANEURYSM, WITHOUT RUPTU 08/25/2017 DAGOBERTO DONALDSON MD Ot K25.9 GASTRIC ULCER, UNSP ACUTE OR CHRONIC, 08/25/2017 DAGOBERTO DONALDSON MD Ot K26.9 DUODENAL ULCER, UNSP ACUTE OR CHRONIC 08/25/2017 DAGOBERTO DONALDSON MD Ot K31.811 ANGIODYSPLASIA OF STOMACH AND DUODENUM W 08/25/2017 DAGOBERTO DONALDSON MD Ot K44.9 DIAPHRAGMATIC HERNIA WITHOUT OBSTRUCTION 08/25/2017 DAGOBERTO DONALDSON MD Ot Z79.82 FDC (CURRENT) USE OF ASPIRIN 08/25/2017 DAGOBERTO DONALDSON MD Ot 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 09/04/2017 DAGOBERTO DONALDSON MD Ot I10 ESSENTIAL (PRIMARY) HYPERTENSION 09/04/2017 DAGOBERTO DONALDSON MD Ot I25.10 ATHSCL HEART DISEASE OF [place] CORONARY 09/04/2017 DAGOBERTO DONALDSON MD Ot I71.4 ABDOMINAL AORTIC ANEURYSM, WITHOUT RUPTU 09/04/2017 DAGOBERTO DONALDSON MD Ot K25.9 GASTRIC ULCER, UNSP ACUTE OR CHRONIC, 09/04/2017 DAGOBERTO DONALDSON MD Ot K26.9 DUODENAL ULCER, UNSP ACUTE OR CHRONIC 09/04/2017 DAGOBERTO DONALDSON MD Ot K31.811 ANGIODYSPLASIA OF STOMACH AND DUODENUM W 09/04/2017 MENDOZA PETERS, DAGOBERTO Weller Ot K44.9 DIAPHRAGMATIC HERNIA WITHOUT OBSTRUCTION 09/04/2017 MENDOZA PETERS, DAGOBERTO Weller Ot 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.82 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 SAFETY 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 (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) 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 OF 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 09/04/2017 DAGOBERTO DONALDSON MD Ot Z79.899 OTHER [facility] (CURRENT) DRUG THERAPY 10/04/2017 TORI SEGURA APRN Ot E78.00 PURE HYPERCHOLESTEROLEMIA, UNSPECIFIED 10/04/2017 TORI SEGURA APRN Ot I10 ESSENTIAL (PRIMARY) HYPERTENSION 10/04/2017 TORI SEGURA APRN Ot I25.10 ATHSCL HEART DISEASE OF [place] CORONARY 10/04/2017 TORI SEGURA APRN Ot I25.2 OLD MYOCARDIAL INFARCTION 10/04/2017 TORI SEGURA APRN Ot J44.9 CHRONIC OBSTRUCTIVE PULMONARY DISEASE, U 10/04/2017 TORI SEGURA APRN Ot K21.9 GASTRO-ESOPHAGEAL REFLUX DISEASE WITHOUT 10/04/2017 TORI SEGURA APRN Ot K27.9 PEPTIC ULC, SITE UNSP, UNSP AC OR CHR 10/04/2017 TORI SEGURA APRN Ot M13.0 POLYARTHRITIS, UNSPECIFIED 10/04/2017 TORI SEGURA APRN Ot R07.2 PRECORDIAL PAIN 10/04/2017 TORI SEGURA APRN Ot Z77.22 CNTCT W AND EXPSR TO ENVIRON TOBACCO SMO 10/04/2017 TORI SEGURA APRN Ot Z79.82 AREA SAFETY MANAGER (CURRENT) USE OF ASPIRIN 10/04/2017 TORI SEGURA APRN Ot Z82.49 FAMILY HX OF ISCHEM HEART DIS AND OTH DI 10/04/2017 TORI SEGURA APRN Ot Z87.19 PERSONAL HISTORY OF OTHER DISEASES OF TH 10/04/2017 TORI SEGURA APRN Ot Z95.5 PRESENCE OF CORONARY ANGIOPLASTY IMPLANT 10/06/2017 DANNY PRATER MD Ot I10 ESSENTIAL (PRIMARY) HYPERTENSION 10/06/2017 DANNY PRATER MD, Ot I25.10 ATHSCL HEART DISEASE OF [place] CORONARY 10/06/2017 DANNY PRATER MD Ot I34.0 NONRHEUMATIC MITRAL (VALVE) INSUFFICIENC 10/06/2017 DANNY PRATER MD, Ot R07.9 CHEST PAIN, UNSPECIFIED 10/06/2017 DANNY PRATER MD Ot Z72.0 TOBACCO USE 10/07/2017 DANNY PRATER MD Ot I10 ESSENTIAL (PRIMARY) HYPERTENSION 10/07/2017 DANNY PRATER MD Ot I25.10 ATHSCL HEART DISEASE OF [place] CORONARY 10/07/2017 DANNY PRATER MD Ot I34.0 NONRHEUMATIC MITRAL (VALVE) INSUFFICIENC 10/07/2017 DANNY PRATER MD Ot R07.9 CHEST PAIN, UNSPECIFIED 10/07/2017 DANNY PRATER MD Ot Z72.0 TOBACCO USE 10/07/2017 DANNY PRATER MD Ot I10 ESSENTIAL (PRIMARY) HYPERTENSION 10/07/2017 DANNY PRATER MD Ot I25.10 ATHSCL HEART DISEASE OF [place] CORONARY 10/07/2017 DANNY PRATER MD Ot I34.0 NONRHEUMATIC MITRAL (VALVE) INSUFFICIENC 10/07/2017 DANNY PRATER MD Ot R07.9 CHEST PAIN, UNSPECIFIED 10/07/2017 DANNY PRATER MD Ot Z72.0 TOBACCO USE 10/08/2017 DANNY PRATER MD Ot I10 ESSENTIAL (PRIMARY) HYPERTENSION 10/08/2017 DANNY PRATER MD Ot I25.10 ATHSCL HEART DISEASE OF [place] CORONARY 10/08/2017 DANNY PRATER MD Ot I34.0 NONRHEUMATIC MITRAL (VALVE) INSUFFICIENC 10/08/2017 DANNY PRATER MD Ot R07.89 OTHER CHEST PAIN 10/08/2017 DANNY PRATER MD Ot Z72.0 TOBACCO USE Procedures Code Description Performed By Performed On 216062Q DILATION OF 1 COR ART WITH DRUG-ELUT INT 08/30/2015 [id number] MEASURE OF CARDIAC SAMPL PRESSURE, L H 08/30/2015 [id number] FLUOROSCOPY OF MULT COR ART USING L OSM 08/30/2015 [id number] FLUOROSCOPY OF LEFT HEART USING LOW OSMO 08/30/2015 [id number] MEASURE OF CARDIAC SAMPL PRESSURE, L H 08/31/2015 [id number] FLUOROSCOPY OF MULT COR ART USING L OSM 08/31/2015 Results Test Result Range Complete blood count (CBC) with automated white blood cell (WBC) differential - 06/19/17 09:45 Blood leukocytes automated count (number/volume) 6.6 10*3/uL 4.3-11.0 Blood erythrocytes automated count (number/volume) 4.15 10*6/uL 4.35-5.85 Venous blood hemoglobin measurement (mass/volume) 11.9 g/dL 13.3-17.7 Blood hematocrit (volume fraction) 36 % 40-54 Automated erythrocyte mean corpuscular volume 87 [foz_us] 80-99 Automated erythrocyte mean corpuscular hemoglobin (mass per erythrocyte) 29 pg 25-34 Automated erythrocyte mean corpuscular hemoglobin concentration measurement ( mass/volume) 33 g/dL 32-36 Automated erythrocyte distribution width ratio 13.6 % 10.0-14.5 Automated blood platelet count (count/volume) 325 10*3/uL 130-400 Automated blood platelet mean volume measurement 8.5 [foz_us] 7.4-10.4 Automated blood neutrophils/100 leukocytes 74 % 42-75 Automated blood lymphocytes/100 leukocytes 15 % 12-44 Blood monocytes/100 leukocytes 9 % 0-12 Automated blood eosinophils/100 leukocytes 1 % 0-10 Automated blood basophils/100 leukocytes 0 % 0-10 Blood neutrophils automated count (number/volume) 4.9 10*3 1.8-7.8 Blood lymphocytes automated count (number/volume) 1.0 10*3 1.0-4.0 Blood monocytes automated count (number/volume) 0.6 10*3 0.0-1.0 Automated eosinophil count 0.1 10*3/uL 0.0-0.3 Automated blood basophil count (count/volume) 0.0 10*3/uL 0.0-0.1 Erythrocyte sedimentation rate by westergren method - 06/19/17 09:45 Erythrocyte sedimentation rate by westergren method 74 mm 0-30 Comprehensive metabolic panel - 06/19/17 09:45 Serum or plasma sodium measurement (moles/volume) 138 mmol/L 135-145 Serum or plasma potassium measurement (moles/volume) 3.7 mmol/L 3.6-5.0 Serum or plasma chloride measurement (moles/volume) 106 mmol/L 98-107 Carbon dioxide 22 mmol/L 21-32 Serum or plasma anion gap determination (moles/volume) 10 mmol/L 5-14 Serum or plasma urea nitrogen measurement (mass/volume) 25 mg/dL 7-18 Serum or plasma creatinine measurement (mass/volume) 0.81 mg/dL 0.60-1.30 Serum or plasma urea nitrogen/creatinine mass ratio 31 NRG Serum or plasma creatinine measurement with calculation of estimated glomerular filtration rate > NRG Serum or plasma glucose measurement (mass/volume) 90 mg/dL 70-105 Serum or plasma calcium measurement (mass/volume) 9.0 mg/dL 8.5-10.1 Serum or plasma total bilirubin measurement (mass/volume) 0.6 mg/dL 0.1-1.0 Serum or plasma alkaline phosphatase measurement (enzymatic activity/volume) 85 U/L 40-136 Serum or plasma aspartate aminotransferase measurement (enzymatic activity/ volume) 17 U/L 5-34 Serum or plasma alanine aminotransferase measurement (enzymatic activity/volume ) 16 U/L 0-55 Serum or plasma protein measurement (mass/volume) 6.8 g/dL 6.4-8.2 Serum or plasma albumin measurement (mass/volume) 3.5 g/dL 3.2-4.5 Serum or plasma uric acid measurement (mass/volume) - 06/19/17 09:45 Serum or plasma uric acid measurement (mass/volume) 4.3 mg/dL 2.6-7.2 Serum or plasma thyrotropin measurement by detection limit <=0.05 miu/l (units/ volume) - 06/19/17 09:45 Serum or plasma thyrotropin measurement by detection limit <=0.05 miu/l (units/ volume) 1.77 u[iU]/mL 0.35-4.94 Serum or plasma C reactive protein measurement (mass/volume) - 06/19/17 09:45 Serum or plasma C reactive protein measurement (mass/volume) 11.72 mg/dL 0.00-0.50 Tick identification panel - 06/19/17 09:45 Serum Ehrlichia chaffeensis IgG antibody detection <1:16 <1:16 Serum Ehrlichia chaffeensis IgM antibody detection <1:10 <1:10 Serum Rickettsia rickettsii IgG antibody assay (units/volume) < <1:16 [place] spotted fever panel < <1:10 Francisella tularensis antibody assay <1:20 NRG LYME AB G M < 0.01 0.00-0.89 Interpretation of Lyme disease antibody assay Negative Negative Complete blood count (CBC) with automated white blood cell (WBC) differential - 07/19/17 17:50 Blood leukocytes automated count (number/volume) 10.3 10*3/uL 4.3-11.0 Blood erythrocytes automated count (number/volume) 3.90 10*6/uL 4.35-5.85 Venous blood hemoglobin measurement (mass/volume) 11.3 g/dL 13.3-17.7 Blood hematocrit (volume fraction) 33 % 40-54 Automated erythrocyte mean corpuscular volume 86 [foz_us] 80-99 Automated erythrocyte mean corpuscular hemoglobin (mass per erythrocyte) 29 pg 25-34 Automated erythrocyte mean corpuscular hemoglobin concentration measurement ( mass/volume) 34 g/dL 32-36 Automated erythrocyte distribution width ratio 14.9 % 10.0-14.5 Automated blood platelet count (count/volume) 343 10*3/uL 130-400 Automated blood platelet mean volume measurement 8.8 [foz_us] 7.4-10.4 Automated blood neutrophils/100 leukocytes 84 % 42-75 Automated blood lymphocytes/100 leukocytes 9 % 12-44 Blood monocytes/100 leukocytes 7 % 0-12 Automated blood eosinophils/100 leukocytes 0 % 0-10 Automated blood basophils/100 leukocytes 0 % 0-10 Blood neutrophils automated count (number/volume) 8.6 10*3 1.8-7.8 Blood lymphocytes automated count (number/volume) 0.9 10*3 1.0-4.0 Blood monocytes automated count (number/volume) 0.7 10*3 0.0-1.0 Automated eosinophil count 0.0 10*3/uL 0.0-0.3 Automated blood basophil count (count/volume) 0.0 10*3/uL 0.0-0.1 Comprehensive metabolic panel - 07/19/17 17:50 Serum or plasma sodium measurement (moles/volume) 133 mmol/L 135-145 Serum or plasma potassium measurement (moles/volume) 3.6 mmol/L 3.6-5.0 Serum or plasma chloride measurement (moles/volume) 103 mmol/L 98-107 Carbon dioxide 20 mmol/L 21-32 Serum or plasma anion gap determination (moles/volume) 10 mmol/L 5-14 Serum or plasma urea nitrogen measurement (mass/volume) 34 mg/dL 7-18 Serum or plasma creatinine measurement (mass/volume) 0.89 mg/dL 0.60-1.30 Serum or plasma urea nitrogen/creatinine mass ratio 38 NRG Serum or plasma creatinine measurement with calculation of estimated glomerular filtration rate > NRG Serum or plasma glucose measurement (mass/volume) 127 mg/dL 70-105 Serum or plasma calcium measurement (mass/volume) 8.8 mg/dL 8.5-10.1 Serum or plasma total bilirubin measurement (mass/volume) 0.6 mg/dL 0.1-1.0 Serum or plasma alkaline phosphatase measurement (enzymatic activity/volume) 87 U/L 40-136 Serum or plasma aspartate aminotransferase measurement (enzymatic activity/ volume) 12 U/L 5-34 Serum or plasma alanine aminotransferase measurement (enzymatic activity/volume ) 13 U/L 0-55 Serum or plasma protein measurement (mass/volume) 6.3 g/dL 6.4-8.2 Serum or plasma albumin measurement (mass/volume) 3.5 g/dL 3.2-4.5 Serum or plasma C reactive protein measurement (mass/volume) - 07/19/17 17:50 Serum or plasma C reactive protein measurement (mass/volume) 20.34 mg/dL 0.00-0.50 Erythrocyte sedimentation rate by westergren method - 07/19/17 17:50 Erythrocyte sedimentation rate by westergren method 54 mm 0-30 Complete blood count (CBC) with automated white blood cell (WBC) differential - 07/20/17 05:32 Blood leukocytes automated count (number/volume) 11.7 10*3/uL 4.3-11.0 Blood erythrocytes automated count (number/volume) 3.96 10*6/uL 4.35-5.85 Venous blood hemoglobin measurement (mass/volume) 11.5 g/dL 13.3-17.7 Blood hematocrit (volume fraction) 35 % 40-54 Automated erythrocyte mean corpuscular volume 87 [foz_us] 80-99 Automated erythrocyte mean corpuscular hemoglobin (mass per erythrocyte) 29 pg 25-34 Automated erythrocyte mean corpuscular hemoglobin concentration measurement ( mass/volume) 33 g/dL 32-36 Automated erythrocyte distribution width ratio 14.9 % 10.0-14.5 Automated blood platelet count (count/volume) 294 10*3/uL 130-400 Automated blood platelet mean volume measurement 8.3 [foz_us] 7.4-10.4 Automated blood neutrophils/100 leukocytes 91 % 42-75 Automated blood lymphocytes/100 leukocytes 7 % 12-44 Blood monocytes/100 leukocytes 3 % 0-12 Automated blood eosinophils/100 leukocytes 0 % 0-10 Automated blood basophils/100 leukocytes 0 % 0-10 Blood neutrophils automated count (number/volume) 10.6 10*3 1.8-7.8 Blood lymphocytes automated count (number/volume) 0.8 10*3 1.0-4.0 Blood monocytes automated count (number/volume) 0.3 10*3 0.0-1.0 Automated eosinophil count 0.0 10*3/uL 0.0-0.3 Automated blood basophil count (count/volume) 0.0 10*3/uL 0.0-0.1 Comprehensive metabolic panel - 07/20/17 05:32 Serum or plasma sodium measurement (moles/volume) 136 mmol/L 135-145 Serum or plasma potassium measurement (moles/volume) 4.5 mmol/L 3.6-5.0 Serum or plasma chloride measurement (moles/volume) 107 mmol/L 98-107 Carbon dioxide 22 mmol/L 21-32 Serum or plasma anion gap determination (moles/volume) 7 mmol/L 5-14 Serum or plasma urea nitrogen measurement (mass/volume) 33 mg/dL 7-18 Serum or plasma creatinine measurement (mass/volume) 0.96 mg/dL 0.60-1.30 Serum or plasma urea nitrogen/creatinine mass ratio 34 NRG Serum or plasma creatinine measurement with calculation of estimated glomerular filtration rate > NRG Serum or plasma glucose measurement (mass/volume) 152 mg/dL 70-105 Serum or plasma calcium measurement (mass/volume) 8.7 mg/dL 8.5-10.1 Serum or plasma total bilirubin measurement (mass/volume) 0.4 mg/dL 0.1-1.0 Serum or plasma alkaline phosphatase measurement (enzymatic activity/volume) 80 U/L 40-136 Serum or plasma aspartate aminotransferase measurement (enzymatic activity/ volume) 9 U/L 5-34 Serum or plasma alanine aminotransferase measurement (enzymatic activity/volume ) 10 U/L 0-55 Serum or plasma protein measurement (mass/volume) 6.0 g/dL 6.4-8.2 Serum or plasma albumin measurement (mass/volume) 3.1 g/dL 3.2-4.5 Serum or plasma C reactive protein measurement (mass/volume) - 07/20/17 05:32 Serum or plasma C reactive protein measurement (mass/volume) 21.89 mg/dL 0.00-0.50 Blood manual differential performed detection - 07/20/17 05:32 Blood monocytes/100 leukocytes 1 % NRG Manual blood segmented neutrophils/100 leukocytes 96 % NRG Manual blood lymphocytes/100 leukocytes 3 % NRG Blood poikilocytosis detection by light microscopy SLIGHT NRG Erythrocyte sedimentation rate by westergren method - 07/20/17 05:32 Erythrocyte sedimentation rate by westergren method 50 mm 0-30 Serum or plasma rheumatoid factor measurement (units/volume) - 07/20/17 05:32 Serum or plasma rheumatoid factor measurement (units/volume) NEGATIVE NEGATIVE ANTI-NUCLEAR AB (ARTURO) ANALYZER - 07/20/17 08:19 Screening antinuclear antibody (ARTURO) assay by enzyme immunoassay <1: 80 <1:80 Human immunodeficiency virus (HIV) type 1 and 2 antibody detection - 07/20/17 08:19 Serum HIV 1+2 antibody detection by immunoblot Non-Reactive Non-Reactive Serum hepatitis C virus antibody assay (units/volume) - 07/20/17 08:19 Serum hepatitis C virus antibody detection Non-Reactive Non-Reactive Serum cyclic citrullinated peptide antibody assay (units/volume) - 07/20/17 08: 19 Serum cyclic citrullinated peptide antibody assay (units/volume) 180.0 % 0.0-19.0 Chlamydia DNA amp probe, urine - 07/20/17 13:25 Chlamydia DNA amp probe, urine Not Detected Not Detected Urine Neisseria gonorrhoeae DNA assay - 07/20/17 13:25 Gonorrhea amp DNA-urine Not Detected Not Detected Complete blood count (CBC) with automated white blood cell (WBC) differential - 07/21/17 08:19 Blood leukocytes automated count (number/volume) 15.4 10*3/uL 4.3-11.0 Blood erythrocytes automated count (number/volume) 3.78 10*6/uL 4.35-5.85 Venous blood hemoglobin measurement (mass/volume) 10.9 g/dL 13.3-17.7 Blood hematocrit (volume fraction) 33 % 40-54 Automated erythrocyte mean corpuscular volume 88 [foz_us] 80-99 Automated erythrocyte mean corpuscular hemoglobin (mass per erythrocyte) 29 pg 25-34 Automated erythrocyte mean corpuscular hemoglobin concentration measurement ( mass/volume) 33 g/dL 32-36 Automated erythrocyte distribution width ratio 15.4 % 10.0-14.5 Automated blood platelet count (count/volume) 349 10*3/uL 130-400 Automated blood platelet mean volume measurement 8.8 [foz_us] 7.4-10.4 Automated blood neutrophils/100 leukocytes 85 % 42-75 Automated blood lymphocytes/100 leukocytes 10 % 12-44 Blood monocytes/100 leukocytes 5 % 0-12 Automated blood eosinophils/100 leukocytes 0 % 0-10 Automated blood basophils/100 leukocytes 0 % 0-10 Blood neutrophils automated count (number/volume) 13.1 10*3 1.8-7.8 Blood lymphocytes automated count (number/volume) 1.5 10*3 1.0-4.0 Blood monocytes automated count (number/volume) 0.8 10*3 0.0-1.0 Automated eosinophil count 0.0 10*3/uL 0.0-0.3 Automated blood basophil count (count/volume) 0.0 10*3/uL 0.0-0.1 Vancomycin trough - 07/21/17 08:19 Vancomycin trough 16.7 ug/mL 10.0-20.0 Comprehensive metabolic panel - 07/21/17 08:19 Serum or plasma sodium measurement (moles/volume) 136 mmol/L 135-145 Serum or plasma potassium measurement (moles/volume) 4.3 mmol/L 3.6-5.0 Serum or plasma chloride measurement (moles/volume) 110 mmol/L 98-107 Carbon dioxide 17 mmol/L 21-32 Serum or plasma anion gap determination (moles/volume) 9 mmol/L 5-14 Serum or plasma urea nitrogen measurement (mass/volume) 31 mg/dL 7-18 Serum or plasma creatinine measurement (mass/volume) 0.82 mg/dL 0.60-1.30 Serum or plasma urea nitrogen/creatinine mass ratio 38 NRG Serum or plasma creatinine measurement with calculation of estimated glomerular filtration rate > NRG Serum or plasma glucose measurement (mass/volume) 109 mg/dL 70-105 Serum or plasma calcium measurement (mass/volume) 8.3 mg/dL 8.5-10.1 Serum or plasma total bilirubin measurement (mass/volume) 0.3 mg/dL 0.1-1.0 Serum or plasma alkaline phosphatase measurement (enzymatic activity/volume) 83 U/L 40-136 Serum or plasma aspartate aminotransferase measurement (enzymatic activity/ volume) 14 U/L 5-34 Serum or plasma alanine aminotransferase measurement (enzymatic activity/volume ) 15 U/L 0-55 Serum or plasma protein measurement (mass/volume) 5.4 g/dL 6.4-8.2 Serum or plasma albumin measurement (mass/volume) 3.0 g/dL 3.2-4.5 Complete blood count (CBC) with automated white blood cell (WBC) differential - 08/18/17 19:00 Blood leukocytes automated count (number/volume) 5.8 10*3/uL 4.3-11.0 Blood erythrocytes automated count (number/volume) 4.59 10*6/uL 4.35-5.85 Venous blood hemoglobin measurement (mass/volume) 12.8 g/dL 13.3-17.7 Blood hematocrit (volume fraction) 38 % 40-54 Automated erythrocyte mean corpuscular volume 83 [foz_us] 80-99 Automated erythrocyte mean corpuscular hemoglobin (mass per erythrocyte) 28 pg 25-34 Automated erythrocyte mean corpuscular hemoglobin concentration measurement ( mass/volume) 33 g/dL 32-36 Automated erythrocyte distribution width ratio 15.6 % 10.0-14.5 Automated blood platelet count (count/volume) 419 10*3/uL 130-400 Automated blood platelet mean volume measurement 8.4 [foz_us] 7.4-10.4 Automated blood neutrophils/100 leukocytes 67 % 42-75 Automated blood lymphocytes/100 leukocytes 24 % 12-44 Blood monocytes/100 leukocytes 9 % 0-12 Automated blood eosinophils/100 leukocytes 0 % 0-10 Automated blood basophils/100 leukocytes 0 % 0-10 Blood neutrophils automated count (number/volume) 3.9 10*3 1.8-7.8 Blood lymphocytes automated count (number/volume) 1.4 10*3 1.0-4.0 Blood monocytes automated count (number/volume) 0.5 10*3 0.0-1.0 Automated eosinophil count 0.0 10*3/uL 0.0-0.3 Automated blood basophil count (count/volume) 0.0 10*3/uL 0.0-0.1 PT panel in platelet poor plasma by coagulation assay - 08/18/17 19:00 Prothrombin time (PT) in platelet poor plasma by coagulation assay 13.8 s 12.2-14.7 INR in platelet poor plasma or blood by coagulation assay 1.1 0.8-1.4 Activated partial thromboplastin time (aPTT) in platelet poor plasma bycoagulation assay - 08/18/17 19:00 Activated partial thromboplastin time (aPTT) in platelet poor plasma bycoagulation assay 37 s 24-35 Fibrin D-dimer FEU measurement in platelet poor plasma (mass/volume) - 19:00 Fibrin D-dimer FEU measurement in platelet poor plasma (mass/volume) 1.42 ug/mL 0.00-0.49 Comprehensive metabolic panel - 08/18/17 19:00 Serum or plasma sodium measurement (moles/volume) 135 mmol/L 135-145 Serum or plasma potassium measurement (moles/volume) 4.7 mmol/L 3.6-5.0 Serum or plasma chloride measurement (moles/volume) 103 mmol/L 98-107 Carbon dioxide 17 mmol/L 21-32 Serum or plasma anion gap determination (moles/volume) 15 mmol/L 5-14 Serum or plasma urea nitrogen measurement (mass/volume) 34 mg/dL 7-18 Serum or plasma creatinine measurement (mass/volume) 1.06 mg/dL 0.60-1.30 Serum or plasma urea nitrogen/creatinine mass ratio 32 NRG Serum or plasma creatinine measurement with calculation of estimated glomerular filtration rate > NRG Serum or plasma glucose measurement (mass/volume) 105 mg/dL 70-105 Serum or plasma calcium measurement (mass/volume) 9.4 mg/dL 8.5-10.1 Serum or plasma total bilirubin measurement (mass/volume) 0.4 mg/dL 0.1-1.0 Serum or plasma alkaline phosphatase measurement (enzymatic activity/volume) 94 U/L 40-136 Serum or plasma aspartate aminotransferase measurement (enzymatic activity/ volume) 25 U/L 5-34 Serum or plasma alanine aminotransferase measurement (enzymatic activity/volume ) 28 U/L 0-55 Serum or plasma protein measurement (mass/volume) 7.8 g/dL 6.4-8.2 Serum or plasma albumin measurement (mass/volume) 3.8 g/dL 3.2-4.5 Magnesium - 08/18/17 19:00 Magnesium 2.1 mg/dL 1.8-2.4 Serum or plasma troponin i.cardiac measurement (mass/volume) - 08/18/17 19:00 Serum or plasma troponin i.cardiac measurement (mass/volume) < ng/ mL <0.30 Myoglobin, serum - 08/18/17 19:00 Myoglobin, serum 47.1 ng/mL 10.0-92.0 THYROID STIMULATING HORMONE - 08/18/17 19:00 THYROID STIMULATING HORMONE 3.00 u[iU]/mL 0.35-4.94 Lipase - 08/18/17 19:00 Lipase 25 U/L 8-78 Serum or plasma troponin i.cardiac measurement (mass/volume) - 08/18/17 21:33 Serum or plasma troponin i.cardiac measurement (mass/volume) < ng/ mL <0.30 Complete blood count (CBC) with automated white blood cell (WBC) differential - 08/20/17 16:34 Blood leukocytes automated count (number/volume) 8.3 10*3/uL 4.3-11.0 Blood erythrocytes automated count (number/volume) 4.75 10*6/uL 4.35-5.85 Venous blood hemoglobin measurement (mass/volume) 13.2 g/dL 13.3-17.7 Blood hematocrit (volume fraction) 40 % 40-54 Automated erythrocyte mean corpuscular volume 83 [foz_us] 80-99 Automated erythrocyte mean corpuscular hemoglobin (mass per erythrocyte) 28 pg 25-34 Automated erythrocyte mean corpuscular hemoglobin concentration measurement ( mass/volume) 33 g/dL 32-36 Automated erythrocyte distribution width ratio 15.5 % 10.0-14.5 Automated blood platelet count (count/volume) 434 10*3/uL 130-400 Automated blood platelet mean volume measurement 8.2 [foz_us] 7.4-10.4 Automated blood neutrophils/100 leukocytes 69 % 42-75 Automated blood lymphocytes/100 leukocytes 22 % 12-44 Blood monocytes/100 leukocytes 8 % 0-12 Automated blood eosinophils/100 leukocytes 0 % 0-10 Automated blood basophils/100 leukocytes 0 % 0-10 Blood neutrophils automated count (number/volume) 5.8 10*3 1.8-7.8 Blood lymphocytes automated count (number/volume) 1.8 10*3 1.0-4.0 Blood monocytes automated count (number/volume) 0.7 10*3 0.0-1.0 Automated eosinophil count 0.0 10*3/uL 0.0-0.3 Automated blood basophil count (count/volume) 0.0 10*3/uL 0.0-0.1 Comprehensive metabolic panel - 08/20/17 16:34 Serum or plasma sodium measurement (moles/volume) 134 mmol/L 135-145 Serum or plasma potassium measurement (moles/volume) 4.2 mmol/L 3.6-5.0 Serum or plasma chloride measurement (moles/volume) 102 mmol/L 98-107 Carbon dioxide 21 mmol/L 21-32 Serum or plasma anion gap determination (moles/volume) 11 mmol/L 5-14 Serum or plasma urea nitrogen measurement (mass/volume) 28 mg/dL 7-18 Serum or plasma creatinine measurement (mass/volume) 0.84 mg/dL 0.60-1.30 Serum or plasma urea nitrogen/creatinine mass ratio 33 NRG Serum or plasma creatinine measurement with calculation of estimated glomerular filtration rate > NRG Serum or plasma glucose measurement (mass/volume) 102 mg/dL 70-105 Serum or plasma calcium measurement (mass/volume) 9.2 mg/dL 8.5-10.1 Serum or plasma total bilirubin measurement (mass/volume) 0.6 mg/dL 0.1-1.0 Serum or plasma alkaline phosphatase measurement (enzymatic activity/volume) 90 U/L 40-136 Serum or plasma aspartate aminotransferase measurement (enzymatic activity/ volume) 16 U/L 5-34 Serum or plasma alanine aminotransferase measurement (enzymatic activity/volume ) 18 U/L 0-55 Serum or plasma protein measurement (mass/volume) 7.5 g/dL 6.4-8.2 Serum or plasma albumin measurement (mass/volume) 3.7 g/dL 3.2-4.5 Serum or plasma amylase measurement (enzymatic activity/volume) - 08/20/17 16: 34 Serum or plasma amylase measurement (enzymatic activity/volume) 29 U /L 25-125 Lipase - 08/20/17 16:34 Lipase 13 U/L 8-78 Complete blood count (CBC) with automated white blood cell (WBC) differential - 10/04/17 21:40 Blood leukocytes automated count (number/volume) 9.6 10*3/uL 4.3-11.0 Blood erythrocytes automated count (number/volume) 4.47 10*6/uL 4.35-5.85 Venous blood hemoglobin measurement (mass/volume) 13.0 g/dL 13.3-17.7 Blood hematocrit (volume fraction) 38 % 40-54 Automated erythrocyte mean corpuscular volume 85 [foz_us] 80-99 Automated erythrocyte mean corpuscular hemoglobin (mass per erythrocyte) 29 pg 25-34 Automated erythrocyte mean corpuscular hemoglobin concentration measurement ( mass/volume) 34 g/dL 32-36 Automated erythrocyte distribution width ratio 17.5 % 10.0-14.5 Automated blood platelet count (count/volume) 295 10*3/uL 130-400 Automated blood platelet mean volume measurement 8.4 [foz_us] 7.4-10.4 Automated blood neutrophils/100 leukocytes 76 % 42-75 Automated blood lymphocytes/100 leukocytes 16 % 12-44 Blood monocytes/100 leukocytes 7 % 0-12 Automated blood eosinophils/100 leukocytes 1 % 0-10 Automated blood basophils/100 leukocytes 0 % 0-10 Blood neutrophils automated count (number/volume) 7.3 10*3 1.8-7.8 Blood lymphocytes automated count (number/volume) 1.6 10*3 1.0-4.0 Blood monocytes automated count (number/volume) 0.7 10*3 0.0-1.0 Automated eosinophil count 0.1 10*3/uL 0.0-0.3 Automated blood basophil count (count/volume) 0.0 10*3/uL 0.0-0.1 Fibrin D-dimer FEU measurement in platelet poor plasma (mass/volume) - 21:40 Fibrin D-dimer FEU measurement in platelet poor plasma (mass/volume) 0.96 ug/mL 0.00-0.49 Serum or plasma C reactive protein measurement (mass/volume) - 10/04/17 21:40 Serum or plasma C reactive protein measurement (mass/volume) 8.26 mg /dL 0.00-0.50 Comprehensive metabolic panel - 10/04/17 21:40 Serum or plasma sodium measurement (moles/volume) 138 mmol/L 135-145 Serum or plasma potassium measurement (moles/volume) 4.1 mmol/L 3.6-5.0 Serum or plasma chloride measurement (moles/volume) 103 mmol/L 98-107 Carbon dioxide 23 mmol/L 21-32 Serum or plasma anion gap determination (moles/volume) 12 mmol/L 5-14 Serum or plasma urea nitrogen measurement (mass/volume) 34 mg/dL 7-18 Serum or plasma creatinine measurement (mass/volume) 1.13 mg/dL 0.60-1.30 Serum or plasma urea nitrogen/creatinine mass ratio 30 NRG Serum or plasma creatinine measurement with calculation of estimated glomerular filtration rate > NRG Serum or plasma glucose measurement (mass/volume) 102 mg/dL 70-105 Serum or plasma calcium measurement (mass/volume) 9.3 mg/dL 8.5-10.1 Serum or plasma total bilirubin measurement (mass/volume) 0.7 mg/dL 0.1-1.0 Serum or plasma alkaline phosphatase measurement (enzymatic activity/volume) 76 U/L 40-136 Serum or plasma aspartate aminotransferase measurement (enzymatic activity/ volume) 14 U/L 5-34 Serum or plasma alanine aminotransferase measurement (enzymatic activity/volume ) 15 U/L 0-55 Serum or plasma protein measurement (mass/volume) 7.2 g/dL 6.4-8.2 Serum or plasma albumin measurement (mass/volume) 3.8 g/dL 3.2-4.5 Magnesium - 10/04/17 21:40 Magnesium 2.0 mg/dL 1.8-2.4 Serum or plasma troponin i.cardiac measurement (mass/volume) - 10/04/17 21:40 Serum or plasma troponin i.cardiac measurement (mass/volume) < ng/ mL <0.30 Erythrocyte sedimentation rate by westergren method - 10/04/17 21:40 Erythrocyte sedimentation rate by westergren method 31 mm 0-30 Lipase - 10/04/17 21:40 Lipase 17 U/L 8-78 Complete urinalysis with reflex to culture - 10/04/17 22:16 Urine color determination YELLOW NRG Urine clarity determination CLEAR NRG Urine pH measurement by test strip 5 5-9 Specific gravity of urine by test strip 1.025 1.016- 1.022 Urine protein assay by test strip, semi-quantitative NEGATIVE NEGATIVE Urine glucose detection by automated test strip NEGATIVE NEGATIVE Erythrocytes detection in urine sediment by light microscopy 2+ NEGATIVE Urine ketones detection by automated test strip NEGATIVE NEGATIVE Urine nitrite detection by test strip NEGATIVE NEGATIVE Urine total bilirubin detection by test strip NEGATIVE NEGATIVE Urine urobilinogen measurement by automated test strip (mass/volume) NORMAL NORMAL Urine leukocyte esterase detection by dipstick NEGATIVE NEGATIVE Automated urine sediment erythrocyte count by microscopy (number/high power field) [HPF] NRG Automated urine sediment leukocyte count by microscopy (number/high power field ) NONE NRG Bacteria detection in urine sediment by light microscopy NEGATIVE NRG Squamous epithelial cells detection in urine sediment by light microscopy 0-2 NRG Crystals detection in urine sediment by light microscopy NONE NRG Casts detection in urine sediment by light microscopy NONE NRG Mucus detection in urine sediment by light microscopy LARGE NRG Complete urinalysis with reflex to culture NO NRG Urine drug screening test - 10/04/17 22:16 Urine phencyclidine detection by screening method NEGATIVE NEGATIVE Urine benzodiazepines detection by screening method NEGATIVE NEGATIVE Urine cocaine detection NEGATIVE NEGATIVE Urine amphetamines detection by screening method NEGATIVE NEGATIVE Urine methamphetamine detection by screening method NEGATIVE NEGATIVE Urine cannabinoids detection by screening method POSITIVE NEGATIVE Urine opiates detection by screening method POSITIVE NEGATIVE Urine barbiturates detection NEGATIVE NEGATIVE Screening urine tricyclic antidepressants detection NEGATIVE NEGATIVE Urine methadone detection by screening method NEGATIVE NEGATIVE Urine oxycodone detection NEGATIVE NEGATIVE Urine propoxyphene detection NEGATIVE NEGATIVE Encounters ACCT No. Visit Date/Time Discharge Status Pt. Type Provider Facility Loc./Unit Complaint [id number] 10/07/2017 11:17:00 10/07/2017 23:59:59 CLS Outpatient DANNY PRATER MD [facility] CARD CAD I25.10 [id number] 10/07/2017 11:14:00 10/07/2017 23:59:59 CLS Outpatient DANNY PRATER MD [facility] CARD I25.10 CAD [id number] 10/04/2017 21:24:00 10/04/2017 23:31:00 DIS Emergency TORI SEGURA APRN [facility] ER AB PAIN R HAND SWOLLEN [id number] 08/24/2017 11:55:00 08/24/2017 16:50:00 DIS Outpatient DAGOBERTO DONALDSON MD [facility] ENDO RIGHT UPPER QUADRANT ABD PAIN/EPIGASTRIC PAIN [id number] 08/20/2017 16:10:00 08/21/2017 12:45:00 DIS Inpatient DAGOBERTO DONALDSON MD [facility] 4TH ACUTE ABD PAIN [id number] 08/18/2017 18:51:00 08/18/2017 22:42:00 DIS Emergency LIDIA PETERS, MYNOR Al[place] [facility] ER CP [id number] 07/19/2017 20:54:00 07/21/2017 12:40:00 DIS Inpatient AMY LEAL MD [facility] 4TH CELLULITIS B WRISTS [id number] 06/19/2017 08:12:00 06/19/2017 10:50:00 DIS Emergency TAY CARRASQUILLO DO [facility] ER SHOULDERS/HANDS PAIN [id number] 2016 07:44:00 2016 23:59:59 CLS Outpatient DANNY PRATER MD [facility] CARD CAD,CHEST PAIN SYNDROME, HTN,MR,TOBACCO USE [id number] 08/30/2015 18:11:00 09/01/2015 14:20:00 DIS Inpatient DANNY PRATER MD [facility] ICU UPPER ABD PAIN [id number] 08/13/2014 03:41:00 08/14/2014 20:50:00 DIS Inpatient ANTONIO PETERS FACC, SKYLER BUSTOS CCDS [facility] CSD CHEST PAIN
[2017-10-26] MEDS ORDERED: NS IV 1000 ML 1,000 ML IV ONE (21:47)
[2017-10-26 21:55] LABS: BASOPHILS % (AUTO) 1 % (0-10); EOSINOPHILS # (AUTO) 0.1 10^3/uL (0.0-0.3); EOSINOPHILS % (AUTO) 1 % (0-10); LYMPHOCYTES # (AUTO) 1.9 X 10^3 (1.0-4.0); LYMPHOCYTES % (AUTO) 22 % (12-44); MEAN CORPUSCULAR HEMOGLOBIN 28 PG (25-34); MEAN CORPUSCULAR HGB CONC 34 G/DL (32-36); MEAN CORPUSCULAR VOLUME 84 FL (80-99); MEAN PLATELET VOLUME 8.4 FL (7.4-10.4); MONOCYTES # (AUTO) 0.7 X 10^3 (0.0-1.0); MONOCYTES % (AUTO) 8 % (0-12); NEUTROPHILS % (AUTO) 69 % (42-75); PLATELET COUNT 444 10^3/uL (130-400); RED CELL DISTRIBUTION WIDTH 16.4 % (10.0-14.5); WHITE BLOOD COUNT 8.6 10^3/uL (4.3-11.0)
[2017-10-26] MEDS ORDERED: ASPIRIN 81 MG CHEW (CHILDREN'S ASA) PO ONE (22:00)
[2017-10-26] MEDS ORDERED: DILTIAZEM IV FOR DRIP 125 MG in NS (IVPB) 100 ML IV SCH (22:00)
[2017-10-26 22:05] LABS: PROTHROMBIN TIME PATIENT 13.3 SEC (12.2-14.7)
[2017-10-26 22:11] LABS: hs C REACTIVE PROTEIN 9.79 MG/DL (0.00-0.50)
[2017-10-26 22:13] LABS: ALANINE AMINOTRANSFERASE 12 U/L (0-55); ALBUMIN 3.5 GM/DL (3.2-4.5); ANION GAP 18 MMOL/L (5-14); ASPARTATE AMINO TRANSFERASE 11 U/L (5-34); BILIRUBIN,TOTAL 0.6 MG/DL (0.1-1.0); BLOOD UREA NITROGEN 27 MG/DL (7-18); BUN/CREATININE RATIO 21; CALCIUM 9.1 MG/DL (8.5-10.1); CARBON DIOXIDE 17 MMOL/L (21-32); CHLORIDE 104 MMOL/L (98-107); CREATININE SERUM 1.28 MG/DL (0.60-1.30); GFR ESTIMATED 57; GLUCOSE 117 MG/DL (70-105); MAGNESIUM 1.8 MG/DL (1.8-2.4); POTASSIUM 3.9 MMOL/L (3.6-5.0); SODIUM 139 MMOL/L (135-145); TOTAL PROTEIN 6.8 GM/DL (6.4-8.2)
[2017-10-26 22:23] LABS: MYOGLOBIN SERUM 46.8 NG/ML (10.0-92.0)
[2017-10-26 22:32] VITALS: BP 113/82
--- NOTE | 2017-10-26 22:43 | ED Chest Pain ---
General Chief Complaint: Cardiac/General Problems Stated Complaint: SOB,LIGHTHEADED,CHEST PAIN Nursing Triage Note: Pt c/o SOA, R sided CP, and dizziness starting today. Pt reports when he stands he nearly passes out. Pt had near syncopal episode in waiting room when attempting to ambulate back to exam room. Nursing Sepsis Screen: No Definite Risk Source: patient, old records Exam Limitations: no limitations History of Present Illness Time seen by provider: 21:38 Initial Comments This 62-year-old gentleman presents to emergency room with complaints of right- sided chest pain including pain with inspiration, lightheadedness, dyspnea, and weakness that started this morning. He is noted to have atrial fibrillation on the monitor. He has no prior history of atrial fibrillation. He does have heart disease and had a normal stress test [address] Molina is his home sales consultant. He had some upper respiratory symptoms with cough and congestion over the past couple of weeks but those symptoms have improved. Patient does smoke but denies respiratory disease. Allergies and Home Medications Allergies Coded Allergies: No Known Drug Allergies (Unverified , 08/20/17) Home Medications Aspirin 81 Mg Tablet., 81 MG PO DAILY, (Reported) Cephalexin 500 Mg Capsule, 500 MG PO TID, #15 Prescribed by: TORI SEGURA on 10/04/170 Oxycodone HCl/Acetaminophen 1 Each Tablet, 1 EACH PO Q4H PRN for PAIN-SEVERE, # 10 Prescribed by: TORI SEGURA on 10/04/172243 Pantoprazole Sodium 40 Mg Tablet., 40 MG PO DAILY, (Reported) Pantoprazole Sodium 40 Mg Granpkt., 40 MG PO DAILY, #20 Prescribed by: TORI SEGURA on 10/04/172243 Prednisone 20 Mg Tab, (Reported) Prednisone 20 Mg Tab, 60 MG PO DAILY, #9 Prescribed by: TORI SEGURA on 10/04/172243 Sucralfate 1 Gm/10 Ml Oral.susp, 1 GM PO ACHS, #400 Prescribed by: TORI SEGURA on 10/04/172243 Review of Systems Constitutional: no symptoms reported EENTM: No Symptoms Reported Respiratory: See HPI Cardiovascular: See HPI Gastrointestinal: No Symptoms Reported Genitourinary: No Symptoms Reported Musculoskeletal: no symptoms reported Skin: no symptoms reported Psychiatric/Neurological: No Symptoms Reported Endocrine: No Symptoms Reported Hematologic/Lymphatic: No Symptoms Reported Past Mtcboyi-Wuztwg-Tjynqd Hx Patient Social History Alcohol Use: Rarely Uses Recreational Drug Use: No Smoking Status: Current Everyday Smoker Type Used: Cigarettes 2nd Hand Smoke Exposure: Yes Recent Foreign Travel: No Contact w/Someone Who Travel: No Recent Infectious Disease Expo: No Recent Hopitalizations: No Immunizations Up To Date Tetanus Booster (TDap): Unknown Seasonal Allergies Seasonal Allergies: No Surgeries History of Surgeries: Yes (CARDIAC CATH--STENTS X 3) Surgeries: Cardiac, Coronary Stent Respiratory History of Respiratory Disorde: Yes Respiratory Disorders: COPD Currently Using CPAP: No Currently Using BIPAP: No Cardiovascular History of Cardiac Disorders: Yes (STENTS) Cardiac Disorders: Coronary Artery Disease, Heart Attack, High Cholesterol, Hypertension Neurological History of Neurological Disord: No Reproductive System Hx Reproductive Disorders: No Sexually Transmitted Disease: No Genitourinary History of Genitourinary Disor: No Gastrointestinal History of Gastrointestinal Di: Yes Gastrointestinal Disorders: Gastroesophageal Reflux, Ulcer Musculoskeletal History of Musculoskeletal Dis: Yes (SHOULDER, ELBOW, HAND PAIN ) Musculoskeletal Disorders: Arthritis Endocrine History of Endocrine Disorders: No HEENT History of HEENT Disorders: No Cancer History of Cancer: No Psychosocial History of Psychiatric Problem: No Integumentary History of Skin or Integumenta: No Blood Transfusions History of Blood Disorders: No Adverse Reaction to a Blood Tr: No Family Medical History Significant Family History: Diabetes, Hypertension Family Medial History: Cardiovascular disease Cataracts Diabetes mellitus Glaucoma Hypertension Myocardial infarction Respiratory disorder Thyroid disease Visual disorder No Family History of: AIDS Abdominal aortic aneurysm [place]'s disease Alcoholism Alzheimer's disease Aphasia Arthritis Asthma Cancer of mouth Colon cancer Completed stroke Congenital disease Congenital heart disease Coronary thrombosis Cystic fibrosis Deafness or hearing loss Dementia Drug abuse Dysphasia Fibrocystic disease of breast Gastroenteritis Headache disorder Hypercholesterolemia Infertility Kidney disease Neoplasm Not obtainable due to adoption Osteoporosis Parkinson's disease Prostate cancer Psychosocial problem Seizure disorder Severe allergy Tuberculosis Physical Exam Vital Signs Vital Sign - Last 12Hours 10/26/17 10/26/17 21:47 21:51 Temp 98.2 Pulse 150 Resp 30 B/P (MAP) 113/76 (88) Pulse Ox 99 O2 Delivery Room Air O2 Flow Rate 2.00 Capillary Refill : Less Than 3 Seconds General Appearance: WD/WN, Mild Distress, Thin HEENT: PERRL/EOMI, Normal ENT Inspection, Pharynx Normal Neck: Normal Inspection Respiratory: Lungs Clear, Normal Breath Sounds, No Accessory Muscle Use, No Respiratory Distress Cardiovascular: Regular Rate, Rhythm, No Edema, No Murmur Gastrointestinal: Normal Bowel Sounds, Non Tender, Soft Extremity: Normal Inspection, Non Tender, No Calf Tenderness, No Pedal Edema, Other (negative Kelsey) Neurologic/Psychiatric: Alert, Oriented x3, No Motor/Sensory Deficits, Normal Mood/Affect, pacs specialist II-XII Norm as Tested Skin: Normal Color, Warm/Dry Progress/Results/Core Measures Results/Orders Lab Results Laboratory Tests Test 10/26/17 21:48 Range/Units White Blood Count 8.6 4.3-11.0 10^3/uL Red Blood Count 4.80 4.35-5.85 10^6/uL Hemoglobin 13.6 13.3-17.7 G/DL Hematocrit 40 40-54 % Mean Corpuscular Volume 84 80-99 FL Mean Corpuscular Hemoglobin 28 25-34 PG Mean Corpuscular Hemoglobin Concent 34 32-36 G/DL Red Cell Distribution Width 16.4 H 10.0-14.5 % Platelet Count 444 H 130-400 10^3/uL Mean Platelet Volume 8.4 7.4-10.4 FL Neutrophils (%) (Auto) 69 42-75 % Lymphocytes (%) (Auto) 22 12-44 % Monocytes (%) (Auto) 8 0-12 % Eosinophils (%) (Auto) 1 0-10 % Basophils (%) (Auto) 1 0-10 % Neutrophils # (Auto) 6.0 1.8-7.8 X 10^3 Lymphocytes # (Auto) 1.9 1.0-4.0 X 10^3 Monocytes # (Auto) 0.7 0.0-1.0 X 10^3 Eosinophils # (Auto) 0.1 0.0-0.3 10^3/uL Basophils # (Auto) 0.0 0.0-0.1 10^3/uL Prothrombin Time 13.3 12.2-14.7 SEC INR Comment 1.0 0.8-1.4 Activated Partial Thromboplast Time 34 24-35 SEC Sodium Level 139 135-145 MMOL/L Potassium Level 3.9 3.6-5.0 MMOL/L Chloride Level 104 98-107 MMOL/L Carbon Dioxide Level 17 L 21-32 MMOL/L Anion Gap 18 H 5-14 MMOL/L Blood Urea Nitrogen 27 H 7-18 MG/DL Creatinine 1.28 0.60-1.30 MG/DL Estimat Glomerular Filtration Rate 57 BUN/Creatinine Ratio 21 Glucose Level 117 H 70-105 MG/DL Calcium Level 9.1 8.5-10.1 MG/DL Magnesium Level 1.8 1.8-2.4 MG/DL Total Bilirubin 0.6 0.1-1.0 MG/DL Aspartate Amino Transf (AST/SGOT) 11 5-34 U/L Alanine Aminotransferase (ALT/SGPT) 12 0-55 U/L Alkaline Phosphatase 80 40-136 U/L Myoglobin 46.8 10.0-92.0 NG/ML Troponin I < 0.30 <0.30 NG/ML C-Reactive Protein High Sensitivity 9.79 H 0.00-0.50 MG/DL B-Type Natriuretic Peptide 103.0 H <100.0 PG/ML Total Protein 6.8 6.4-8.2 GM/DL Albumin 3.5 3.2-4.5 GM/DL TSH [place] Testing 2.09 0.35-4.94 UIU/ML My Orders Orders - AIDEE JUNIOR MD Cbc With Automated Diff (10/26/17 21:47) Magnesium (10/26/17 21:47) Chest 1 View, Ap/Pa Only (10/26/17 21:47) Ekg Tracing (10/26/17 21:47) Cardiac Profile 1 (10/26/17 21:47) Comprehensive Metabolic Panel (10/26/17 21:47) Myoglobin Serum (10/26/17 21:47) Protime With Inr (10/26/17 21:47) Partial Thromboplastin Time (10/26/17 21:47) O2 (10/26/17 21:47) Monitor-Rhythm Ecg Trace Only (10/26/17 21:47) Lipid Panel (10/27/17 06:00) Aspirin Chewable Tablet (Baby Aspirin Ch (10/26/17 22:00) Saline Lock/Iv-Start (10/26/17 21:47) BNP (10/26/17 21:47) Hs C Reactive Protein (10/26/17 21:47) Ns (Ivpb) (Sodium C... W/Diltiazem Iv Fo (10/26/17 22:00) Ns Iv 1000 Ml (Sodium Chloride 0.9%) (10/26/17 21:47) Thyroid Analyzer (10/26/17 21:49) Ns Iv 500 Ml (Sodium Chloride 0.9%) (10/26/17 23:01) Apixaban Tablet (Eliquis Tablet) (10/26/17 23:15) Medications Given in ED Current Medications Medications Dose Ordered Sig/Keegan Route Start Time Stop Time Status Last Admin Dose Admin Aspirin 324 mg ONCE ONCE PO 10/26/17 22:00 10/26/17 22:01 DC 10/26/17 21:59 324 MG Sodium Chloride 500 ml @ 0 mls/hr Q0M ONCE IV 10/26/17 23:01 10/26/17 23:02 DC 10/26/17 23:09 0 MLS/HR Sodium Chloride 1,000 ml @ 0 mls/hr Q0M ONCE IV 10/26/17 21:47 10/26/17 21:49 DC 10/26/17 21:59 999 MLS/HR Vital Signs/I&O Vital Sign - Last 12Hours 10/26/17 10/26/17 10/26/17 10/26/17 21:47 21:51 21:58 22:32 Temp 98.2 Pulse 150 143 107 Resp 30 26 20 B/P (MAP) 113/76 (88) 113/76 113/82 (92) Pulse Ox 99 97 100 100 O2 Delivery Room Air Nasal Cannula Nasal Cannula O2 Flow Rate 2.00 2.00 Intake and Output 10/27/17 00:00 Intake Total 1000 ml Balance 1000 ml Blood Pressure Mean: 88 Progress Note #1: Time: 22:33 Progress Note Patient received aspirin as part of the chest pain protocol. Cardizem drip was initiated at 10 mg per hour. Heart rate has improved to the 100-130 range. Cardizem drip will be increased to 15 mg per hour. Chest pain and dizziness have resolved with IV fluids and Cardizem drip. Progress Note #2: Progress Note Case was reviewed with Dr. Hoffman who suggested keeping the Cardizem drip at 15 mg per hour. He advised another 500 mL normal saline bolus. He requested Eliquis be given for initial anticoagulation. ECG Initial ECG Impression Date: Oct 26, 2017 Initial ECG Impression Time: 21:43 Initial ECG Rate: 135 Initial ECG Rhythm: A Fib/Flutter Initial ECG Impression: Atrial Fibrillation w/RVR Comment Atrial fibrillation with RVR. No ST elevation or depression. Diagnostic Imaging Diagonstic Imaging: Xray Plain Films/CT/US/NM/MRI: chest Comments Chest x-ray viewed by me and report not available. There is hyperinflation and features of COPD with no acute abnormalities appreciated. Departure Communication (Admissions) Time/Spoke to Admitting Phy: 23:[address] Lashonda Raman Time/Spoke to Consulting Phy: 22:55 Communication/Consulting Dr. Hoffman Impression Impression: Primary Impression: New onset atrial fibrillation Additional Impression: Right-sided chest pain Disposition: ADMITTED INPATIENT Condition: Improved Admissions Decision to Admit Reason: Admit from ER (General) Decision to Admit/Date: Oct 26, 2017 Time/Decision to Admit Time: 21:45 Departure-Patient Inst. Referrals: GERHARD SIU DO (PCP) Primary Care Physician JORGE JACKSON (Family) Primary Care Physician AIDEE JUNIOR MD Oct 26, 2017 22:43
[2017-10-26] MEDS ORDERED: NS IV 500 ML 500 ML IV ONE (23:01)
[2017-10-26] MEDS ORDERED: APIXABAN 5 MG (ELIQUIS) TABLET PO ONE (23:15)
[2017-10-26] MEDS ORDERED: DILTIAZEM DRIP 125 MG/NS 100 ML TOTAL VOLUME 125 ML IV PRN ×2 (23:45)
[2017-10-26 23:48] VITALS: BP 118/83
[2017-10-27] VITALS (14 sets, daily range): BP systolic 84–128; BP diastolic 49–74
[2017-10-27] MEDS: NS IV 1000 ML 1,000 ML IV SCH ×3 (00:41→08:40)
[2017-10-27] MEDS ORDERED: NS IV 1000 ML 1,000 ML IV ONE (02:00)
[2017-10-27 05:09] LABS: BASOPHILS % (AUTO) 0 % (0-10); EOSINOPHILS # (AUTO) 0.1 10^3/uL (0.0-0.3); EOSINOPHILS % (AUTO) 1 % (0-10); LYMPHOCYTES # (AUTO) 1.1 X 10^3 (1.0-4.0); LYMPHOCYTES % (AUTO) 23 % (12-44); MEAN CORPUSCULAR HEMOGLOBIN 28 PG (25-34); MEAN CORPUSCULAR HGB CONC 33 G/DL (32-36); MEAN CORPUSCULAR VOLUME 86 FL (80-99); MEAN PLATELET VOLUME 7.9 FL (7.4-10.4); MONOCYTES # (AUTO) 0.4 X 10^3 (0.0-1.0); MONOCYTES % (AUTO) 8 % (0-12); NEUTROPHILS # (AUTO) 3.3 X 10^3 (1.8-7.8); NEUTROPHILS % (AUTO) 67 % (42-75); PLATELET COUNT 342 10^3/uL (130-400); RED BLOOD COUNT 4.04 10^6/uL (4.35-5.85); RED CELL DISTRIBUTION WIDTH 16.5 % (10.0-14.5)
[2017-10-27 05:32] LABS: ANION GAP 11 MMOL/L (5-14); BLOOD UREA NITROGEN 21 MG/DL (7-18); BUN/CREATININE RATIO 26; CALCIUM 7.8 MG/DL (8.5-10.1); CARBON DIOXIDE 20 MMOL/L (21-32); CHLORIDE 110 MMOL/L (98-107); CHOLESTEROL 158 MG/DL (< 200); CREATININE SERUM 0.81 MG/DL (0.60-1.30); DIRECT LDL 123 MG/DL (1-129); GFR ESTIMATED > 60; GLUCOSE 89 MG/DL (70-105); MAGNESIUM 1.7 MG/DL (1.8-2.4); PHOSPHORUS 2.6 MG/DL (2.3-4.7); POTASSIUM 3.7 MMOL/L (3.6-5.0); SODIUM 141 MMOL/L (135-145); TRIGLYCERIDES 87 MG/DL (<150); VLDL CHOLESTEROL 17 MG/DL (5-40)
[2017-10-27] MEDS ORDERED: POTASSIUM CL 10MEQ/50ML IVPB 50 ML IV SCH (06:00)
[2017-10-27] MEDS ORDERED: KCL 20 MEQ TAB (K-DUR) PO SCH (06:00)
[2017-10-27] MEDS ORDERED: MAGNESIUM 1 GM/100 ML IVPB 100 ML IV SCH (06:00)
[2017-10-27] MEDS: MAGNESIUM 1 GM/100 ML IVPB 100 ML IV SCH ×2 (06:10→08:40)
--- NOTE | 2017-10-27 07:56 | Diagnostic Imaging Report ---
INDICATION: Chest pain, shortness of air. TECHNIQUE: Single view chest 9:57 PM. CORRELATION STUDY: 10/04/2017 FINDINGS: Lung rader are hyperinflated with changes of COPD. No appreciable infiltrate. Heart size and mediastinum appearing unremarkable. Overlying monitor leads present. IMPRESSION: 1. Marked severity COPD. No acute abnormality. Dictated by: Dictated on workstation # [id number]
[2017-10-27] MEDS ORDERED: APIXABAN 5 MG (ELIQUIS) TABLET PO SCH (09:00)
--- NOTE | 2017-10-27 09:29 | Diagnostic Imaging Report ---
INDICATION: New onset atrial fibrillation, chest pain. TECHNIQUE: Single-view chest 4:35 AM. CORRELATION STUDY: 10/26/2017. FINDINGS: Marked severity COPD with significant hyperinflation of the lung rader. Prominent interstitial markings. May be calcified granuloma of the right mid lung. No definitive infiltrate. Heart size and mediastinum are generally stable. No evidence for overt failure. IMPRESSION: Marked severity COPD. No findings to suggest acute abnormality. Dictated by: Dictated on workstation # [id number]
--- NOTE | 2017-10-27 10:52 | Consultation-Cardiology ---
HPI-Cardiology Cardiology Consultation: Date of Consultation 10/27/17 Time Seen by Provider: 10:00 Date of Admission Attending Physician Lashonda Raman MD Admitting Physician Crystal Culp DO Consulting Physician SKYLER ALVAREZ MD, MA, FACP, FACC, FSCAI, CCDS Physician requesting consult: Dr Nida Raman Primary signal and communications maintainer: Dr Molina HPI: Chief Complaint: Dizziness, shortness of breath 62 yo man admitted through ER in the late hours of 10/26/17 with one day of dizziness (worse with posture changes) and a feeling of exertional shortness of breath (more so than his usual baseline). No cp or palp or santana syncope. Diagnosed with A Fib with RVR. Admitted and treated with iv dilt and oral apixaban. In NSR this am and feels back to usual baseline. Denies leg swelling. Denies recent fever or chill, but was diagnosed with [place] Spotted Fever about 3 months ago, he says, and was fully treated with antibiotics and follows with his pcp on that Review of Systems-Cardiology Review of Systems Constitutional: As described under HPI Eyes: No vision change Ears/Nose/Throat: No ear discharge, No nasal drainage, No recent hearing loss Respiratory: As described under HPI Cardiovascular: As described under HPI Gastrointestinal: No constipation, No diarrhea, No nausea, No vomiting Genitourinary: No discharge, No hematuria, No urine frequency changes Musculoskeletal: No back pain, No joint pain Skin: No rash, No ulcerations Psychiatric/Neurological: No seizure, No focal weakness, No syncope Hematologic: No bleeding abnormalities ZJA-[id number]-[id number] Hx Patient Social History Alcohol Use: Denies Use Recreational Drug Use: No Smoking Status: Current Everyday Smoker Type Used: Cigarettes 2nd Hand Smoke Exposure: Yes Recent Foreign Travel: No Recent Infectious Disease Expo: No Physical Abuse Screen: No Sexual Abuse: No Immunizations Up To Date Tetanus Booster (TDap): Unknown Past Medical History PMH As described under Assessment. Family Medical History Family Medical History: Reports h/o CAD in his father in his 70s but no fam h/o early CAD. An uncle of his , possibly of heart trouble, in his mid to late 30s Family History: Cardiovascular disease Cataracts Diabetes mellitus Glaucoma Hypertension Myocardial infarction Respiratory disorder Thyroid disease Visual disorder No Family History of: AIDS Abdominal aortic aneurysm [place]'s disease Alcoholism Alzheimer's disease Aphasia Arthritis Asthma Cancer of mouth Colon cancer Completed stroke Congenital disease Congenital heart disease Coronary thrombosis Cystic fibrosis Deafness or hearing loss Dementia Drug abuse Dysphasia Fibrocystic disease of breast Gastroenteritis Headache disorder Hypercholesterolemia Infertility Kidney disease Neoplasm Not obtainable due to adoption Osteoporosis Parkinson's disease Prostate cancer Psychosocial problem Seizure disorder Severe allergy Tuberculosis Allergies and Home Medications Allergies Coded Allergies: No Known Drug Allergies (Unverified , 08/20/17) Home Medications Aspirin 81 Mg Tablet.dr, 81 MG PO DAILY, (Reported) Cephalexin 500 Mg Capsule, 500 MG PO TID, #15 Prescribed by: TORI SEGURA on 10/04/17 2250 Oxycodone HCl/Acetaminophen 1 Each Tablet, 1 EACH PO Q4H PRN for PAIN-SEVERE, # 10 Prescribed by: TORI SEGURA on 10/04/174 Pantoprazole Sodium 40 Mg Tablet.dr, 40 MG PO DAILY, (Reported) Pantoprazole Sodium 40 Mg Granpkt.dr, 40 MG PO DAILY, #20 Prescribed by: TORI SEGURA on 10/04/174 Prednisone 20 Mg Tab, (Reported) Prednisone 20 Mg Tab, 60 MG PO DAILY, #9 Prescribed by: TORI SEGURA on 10/04/172243 Sucralfate 1 Gm/10 Ml Oral.susp, 1 GM PO ACHS, #400 Prescribed by: TORI SEGURA on 10/04/172243 Physical Exam-Cardiology Physical Exam Vital Signs/I&O Vital Sign - Last 12Hours 10/26/17 10/26/17 10/26/17 10/26/17 23:19 23:19 23:48 23:52 Temp 96.8 97.1 Pulse 94 86 93 Resp 16 20 B/P (MAP) 118/83 (95) Pulse Ox 100 96 O2 Delivery Nasal Cannula Nasal Cannula Room Air O2 Flow Rate 2.00 2.00 10/26/17 10/27/17 10/27/17 10/27/17 23:55 00:00 00:00 01:00 Pulse 106 104 85 Resp 12 21 21 B/P (MAP) 104/72 (83) 99/69 (79) 97/66 (76) Pulse Ox 96 98 98 98 O2 Delivery Room Air Room Air Room Air Room Air 10/27/17 10/27/17 10/27/17 10/27/17 01:00 01:00 02:00 02:00 Pulse 85 85 75 75 Resp 21 20 18 B/P (MAP) 84/60 (68) 85/49 (61) 85/49 (61) Pulse Ox 98 98 98 O2 Delivery Room Air Room Air Room Air 10/27/17 10/27/17 10/27/17 10/27/17 03:00 03:00 04:00 04:00 Pulse 81 81 84 Resp 15 15 20 B/P (MAP) 97/65 (76) 97/65 (76) 102/70 (81) Pulse Ox 98 98 98 98 O2 Delivery Room Air Room Air Room Air Room Air 10/27/17 10/27/17 10/27/17 10/27/17 04:00 05:00 05:18 06:00 Temp 98.8 Pulse 73 69 59 Resp 13 15 B/P (MAP) 107/57 (74) 105/61 (76) Pulse Ox 96 97 O2 Delivery Room Air Room Air 10/27/17 10/27/17 10/27/17 10/27/17 07:00 07:00 08:00 08:00 Pulse 65 61 75 Resp 17 14 B/P (MAP) 108/63 (78) 128/69 (88) Pulse Ox 97 98 97 O2 Delivery Room Air Room Air Room Air 10/27/17 10/27/17 09:00 10:00 Pulse 74 67 Resp 20 15 B/P (MAP) 117/74 (88) 112/73 (86) Pulse Ox 97 98 O2 Delivery Room Air Room Air Intake and Output 10/27/17 00:00 Intake Total 1500 ml Balance 1500 ml Capillary Refill : Less Than 3 Seconds Data Review Labs Laboratory Tests 10/26/17 21:48: White Blood Count 8.6, Red Blood Count 4.80, Hemoglobin 13.6, Hematocrit 40, Mean Corpuscular Volume 84, Mean Corpuscular Hemoglobin 28, Mean Corpuscular Hemoglobin Concent 34, Red Cell Distribution Width 16.4H, Platelet Count 444H, Mean Platelet Volume 8.4, Neutrophils (%) (Auto) 69, Lymphocytes (%) (Auto) 22, Monocytes (%) (Auto) 8, Eosinophils (%) (Auto) 1, Basophils (%) (Auto) 1, Neutrophils # (Auto) 6.0, Lymphocytes # (Auto) 1.9, Monocytes # (Auto) 0.7, Eosinophils # (Auto) 0.1, Basophils # (Auto) 0.0, Prothrombin Time 13.3, INR Comment 1.0, Activated Partial Thromboplast Time 34, Sodium Level 139, Potassium Level 3.9, Chloride Level 104, Carbon Dioxide Level 17L, Anion Gap 18H , Blood Urea Nitrogen 27H, Creatinine 1.28, Estimat Glomerular Filtration Rate 57, BUN/Creatinine Ratio 21, Glucose Level 117H, Calcium Level 9.1, Magnesium Level 1.8, Total Bilirubin 0.6, Aspartate Amino Transf (AST/SGOT) 11, Alanine Aminotransferase (ALT/SGPT) 12, Alkaline Phosphatase 80, Myoglobin 46.8, Troponin I < 0.30, C-Reactive Protein High Sensitivity 9.79H, B-Type Natriuretic Peptide 103.0H, Total Protein 6.8, Albumin 3.5, TSH [place] Testing 2.09 10/27/17 05:00: White Blood Count 5.0, Red Blood Count 4.04L, Hemoglobin 11.4L, Hematocrit 35L, Mean Corpuscular Volume 86, Mean Corpuscular Hemoglobin 28, Mean Corpuscular Hemoglobin Concent 33, Red Cell Distribution Width 16.5H, Platelet Count 342, Mean Platelet Volume 7.9, Neutrophils (%) (Auto) 67, Lymphocytes (%) (Auto) 23, Monocytes (%) (Auto) 8, Eosinophils (%) (Auto) 1, Basophils (%) (Auto) 0, Neutrophils # (Auto) 3.3, Lymphocytes # (Auto) 1.1, Monocytes # (Auto) 0.4, Eosinophils # (Auto) 0.1, Basophils # (Auto) 0.0, Sodium Level 141, Potassium Level 3.7, Chloride Level 110H, Carbon Dioxide Level 20L, Anion Gap 11, Blood Urea Nitrogen 21H, Creatinine 0.81, Estimat Glomerular Filtration Rate > 60, BUN /Creatinine Ratio 26, Glucose Level 89, Calcium Level 7.8L, Magnesium Level 1.7L , Phosphorus Level 2.6, Triglycerides Level 87, Cholesterol Level 158, LDL Cholesterol Direct 123, VLDL Cholesterol 17, HDL Cholesterol 25L Laboratory Tests 10/26/17 21:48 10/27/17 05:00 A/P-Cardiology Assessment/Admission Diagnosis PAF, first diagnosed on 10/26/17. Currently NSR Coronary artery disease and h/o of non-ST elevation myocardial infarction. Cardiac catheter done on 08/30/15 revealed total occlusion of RCA, 3 stents placed: 2.5 x 38, 2.75 x 28, 3.0 x 20 mm Promus Premier stents. Repeat cath on 08/31/15 showed 50 percent ostial left main, otherwise mild coronary artery disease with patent stents to the RCA MPI of 10/07/17: No ischemia or infarction, LVEF 52% Mild hypomagnesemia on 10/27/17. TSH normal on 10/26/17 [place] spotted fever in mid to late 2017, managed by primary care physician. H/o gastritis and esophagitis. Managed by Dr. Gagnon Hyperlipidemia, by history Tobaccoism, continuing H/o hypertension Discussion and Recomendations * We reviewed his med records and had a detailed discussion with him regarding his CV issues, including newly diagnosed PAF * We discussed the treatment approaches for PAF, including rhythm control and rate control * We are treating with long-acting diltiazem for rate control and apixaban for stroke prophylaxis * Given h/o CAD, we are continuing aspirin * We have advised outpatient f/u with Dr Molina, his signal and communications maintainer * We have advised immediate and complete cessation of tobacco use * Replenish magnesium Clinical Quality Measures DVT/VTE Risk/Contraindication: Risk Factor Score Per Nursin RFS Level Per Nursing on Admit: 2=Moderate SKYLER ALVAREZ MD FACP FAC CCDS Oct 27, 2017 10:52
[2017-10-27] MEDS ORDERED: DILTIAZEM 240 MG (CARDIZEM CD) CAP PO NR (11:30)
--- NOTE | 2017-10-27 12:14 | Short Stay Summary ---
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 Patient states he first noticed that he was very dizzy after standing up at breakfast on morning. He noticed through the day that he was still very lightheaded and dizzy. he had progressive SOB. He did not have palpitations or a racing heartbeat. He did not have nausea or edema. This is the first time he has had these symptoms. Of note, patient states he was treated for RMSF by his PCP a few months ago. He continues to have diffuse joint pain for which he takes oxycodone. He asks if the RMSF could have caused this. He did receive a full course of abx for this through the of this eyar. Date of Admission Oct 26, 2017 at 11:06 pm Date of Discharge October 27, 2017 Time Seen by Provider: 09:00 Attending Physician Denise Crawford MD Admitting Physician Crystal Culp DO Consult Dr Hoffman Allergies and Home Medications Allergies Coded Allergies: No Known Drug Allergies (Unverified , 08/20/17) Home Medications Apixaban 5 Mg Tablet, 5 MG PO BID, #60 Ref 0 Prescribed by: DENISE CRAWFORD on 10/27/17 1234 Aspirin 81 Mg Tablet., 81 MG PO DAILY, (Reported) Diltiazem HCl 240 Mg Cap.er.24h, 240 MG PO DAILY, #30 Ref 0 Prescribed by: DENISE CRAWFORD on 10/27/17 1234 Oxycodone HCl/Acetaminophen 1 Each Tablet, 1 EACH PO Q4H PRN for PAIN-SEVERE, # 10 Prescribed by: TORI SEGURA on 10/04/17 2244 Pantoprazole Sodium 40 Mg Tablet., 40 MG PO DAILY, (Reported) Past [id number] Hx Patient Social History Alcohol Use: Denies Use Recreational Drug Use: No Smoking Status: Current Everyday Smoker Type Used: Cigarettes 2nd Hand Smoke Exposure: Yes Physical Abuse Screen: No Sexual Abuse: No Recent Foreign Travel: No Contact w/other who traveled: No Recent Hopitalizations: No Recent Infectious Disease Expo: No Immunizations Up To Date Tetanus Booster (TDap): Unknown Seasonal Allergies Seasonal Allergies: No Surgeries Yes (CARDIAC CATH--STENTS X 3) Cardiac, Coronary Stent Respiratory Yes Pneumonia Currently Using CPAP: No Currently Using BIPAP: No Cardiovascular Yes (STENTS) Coronary Artery Disease, Heart Attack, High Cholesterol, Hypertension Neurological No Reproductive System Hx Reproductive Disorders: No Sexually Transmitted Disease: No Genitourinary No Gastrointestinal Yes Gastroesophageal Reflux, Ulcer Musculoskeletal Yes (SHOULDER, ELBOW, HAND PAIN, PAIN FROM SHIELA [place] SPOTTED FEVER ) Arthritis Endocrine History of Endocrine Disorders: No HEENT History of HEENT Disorders: No Cancer No Psychosocial History of Psychiatric Problem: No Integumentary History of Skin or Integumenta: No Blood Transfusions History of Blood Disorders: No Adverse Reaction to a Blood Tr: No Family Medical History Significant Family History: Diabetes, Hypertension Family Hx: Cardiovascular disease Cataracts Diabetes mellitus Glaucoma Hypertension Myocardial infarction Respiratory disorder Thyroid disease Visual disorder No Family History of: AIDS Abdominal aortic aneurysm Terry's disease Alcoholism Alzheimer's disease Aphasia Arthritis Asthma Cancer of mouth Colon cancer Completed stroke Congenital disease Congenital heart disease Coronary thrombosis Cystic fibrosis Deafness or hearing loss Dementia Drug abuse Dysphasia Fibrocystic disease of breast Gastroenteritis Headache disorder Hypercholesterolemia Infertility Kidney disease Neoplasm Not obtainable due to adoption Osteoporosis Parkinson's disease Prostate cancer Psychosocial problem Seizure disorder Severe allergy Tuberculosis Constitutional: see HPI All Other Systems Reviewed Negative Unless Noted: Yes Physical Exam Vital Signs Vital Sign - Last 12Hours 10/26/17 10/26/17 21:47 21:51 Temp 98.2 Pulse 150 Resp 30 B/P (MAP) 113/76 (88) Pulse Ox 99 O2 Delivery Room Air O2 Flow Rate 2.00 Capillary Refill : Less Than 3 Seconds General Appearance: No Apparent Distress, WD/WN, Thin HEENT: PERRL/EOMI, TMs Normal, Pharynx Normal Neck: Full Range of Motion, Normal Inspection, Non Tender, Supple, Carotid Bruit Respiratory: Chest Non Tender, Lungs Clear, Normal Breath Sounds, No Accessory Muscle Use, No Respiratory Distress Cardiovascular: Regular Rate, Rhythm, No Edema, No Gallop, No JVD, No Murmur, Normal Peripheral Pulses Gastrointestinal: Normal Bowel Sounds, No Organomegaly, No Pulsatile Mass, Non Tender, Soft Extremity: Normal Capillary Refill, Normal Inspection, Normal Range of Motion, Non Tender, No Calf Tenderness, No Pedal Edema Neurologic/Psychiatric: Alert, Oriented x3, No Motor/Sensory Deficits, Normal Mood/Affect Skin: Normal Color, Warm/Dry Clinical Quality Measures DVT/VTE Risk/Contraindication: Risk Factor Score Per Nursin RFS Level Per Nursing on Admit: 2=Moderate Short Stay Diagnosis Discharge Diagnosis-Short Stay Admission Diagnosis: PAROXYSMAL ATRIAL FIBRILLATION CAD CHRONIC PAIN SYNDROME RECENT HISTORY OF RMSF Final Discharge Diagnosis: PAROXYSMAL ATRIAL FIBRILLATION CAD CHRONIC PAIN SYNDROME RECENT HISTORY OF RMSF Conclusion Labs Laboratory Tests 10/26/17 21:48: White Blood Count 8.6, Red Blood Count 4.80, Hemoglobin 13.6, Hematocrit 40, Mean Corpuscular Volume 84, Mean Corpuscular Hemoglobin 28, Mean Corpuscular Hemoglobin Concent 34, Red Cell Distribution Width 16.4H, Platelet Count 444H, Mean Platelet Volume 8.4, Neutrophils (%) (Auto) 69, Lymphocytes (%) (Auto) 22, Monocytes (%) (Auto) 8, Eosinophils (%) (Auto) 1, Basophils (%) (Auto) 1, Neutrophils # (Auto) 6.0, Lymphocytes # (Auto) 1.9, Monocytes # (Auto) 0.7, Eosinophils # (Auto) 0.1, Basophils # (Auto) 0.0, Prothrombin Time 13.3, INR Comment 1.0, Activated Partial Thromboplast Time 34, Sodium Level 139, Potassium Level 3.9, Chloride Level 104, Carbon Dioxide Level 17L, Anion Gap 18H , Blood Urea Nitrogen 27H, Creatinine 1.28, Estimat Glomerular Filtration Rate 57, BUN/Creatinine Ratio 21, Glucose Level 117H, Calcium Level 9.1, Magnesium Level 1.8, Total Bilirubin 0.6, Aspartate Amino Transf (AST/SGOT) 11, Alanine Aminotransferase (ALT/SGPT) 12, Alkaline Phosphatase 80, Myoglobin 46.8, Troponin I < 0.30, C-Reactive Protein High Sensitivity 9.79H, B-Type Natriuretic Peptide 103.0H, Total Protein 6.8, Albumin 3.5, TSH Mcculloch Testing 2.09 10/27/17 05:00: White Blood Count 5.0, Red Blood Count 4.04L, Hemoglobin 11.4L, Hematocrit 35L, Mean Corpuscular Volume 86, Mean Corpuscular Hemoglobin 28, Mean Corpuscular Hemoglobin Concent 33, Red Cell Distribution Width 16.5H, Platelet Count 342, Mean Platelet Volume 7.9, Neutrophils (%) (Auto) 67, Lymphocytes (%) (Auto) 23, Monocytes (%) (Auto) 8, Eosinophils (%) (Auto) 1, Basophils (%) (Auto) 0, Neutrophils # (Auto) 3.3, Lymphocytes # (Auto) 1.1, Monocytes # (Auto) 0.4, Eosinophils # (Auto) 0.1, Basophils # (Auto) 0.0, Sodium Level 141, Potassium Level 3.7, Chloride Level 110H, Carbon Dioxide Level 20L, Anion Gap 11, Blood Urea Nitrogen 21H, Creatinine 0.81, Estimat Glomerular Filtration Rate > 60, BUN /Creatinine Ratio 26, Glucose Level 89, Calcium Level 7.8L, Magnesium Level 1.7L , Phosphorus Level 2.6, Triglycerides Level 87, Cholesterol Level 158, LDL Cholesterol Direct 123, VLDL Cholesterol 17, HDL Cholesterol 25L Conclusion/Plan PAROXYSMAL ATRIAL FIBRILLATION Patient was placed on cardizem drip and converted to NSR. Patient will be maintained on cardizem as an outpatient. We also started Eliquis. He will need to follow up with Dr Molina for chronic management. CAD Pt with history of NSTEMI several years ago. Not on statin. Will defer to PCP and bioinformatics research technician for further management here. He is on ASA and should stay on that in addition to the Eliquis. CHRONIC PAIN SYNDROME RECENT HISTORY OF RMSF Pt mentioned that he is having a lot of joint pain which he attributes to the RMSF. I can see him in consultation in the clinic if necessary but will defer to his PCP on this. Copy Copies To 1: DENISE LE APRN, MD Oct 27, 2017 12:14 pm
[2017-10-27] MEDS ORDERED: APIX5TAB PO (12:34)
[2017-10-27] MEDS ORDERED: DILT240C63 PO (12:34)
--- NOTE | 2017-10-27 12:36 | Discharge Instructions ---
Discharge [facility] Discharge Medications New, Converted or Re-Newed RX: Transmitted to Pharmacy New Medications: Apixaban (Eliquis) 5 Mg Tablet 5 MG PO BID, #60 TAB 0 Refills Diltiazem HCl (Diltiazem 24Hr Cd) 240 Mg Cap.er.24h 240 MG PO DAILY, #30 CAP 0 Refills Continued Medications: Aspirin (Aspirin EC) 81 Mg Tablet. 81 MG PO DAILY, TAB Oxycodone HCl/Acetaminophen (Percocet 5-325 mg Tablet) 1 Each Tablet 1 EACH PO Q4H PRN for PAIN-SEVERE, #10 TAB Pantoprazole Sodium (Protonix) 40 Mg Tablet. 40 MG PO DAILY, TAB Patient Instructions Goal/Follow Up Appt: TATA JACKSON APRN 10/30 AT 9AM Patient Instructions: PLEASE TAKE ALL MEDICATIONS PRESCRIBED. YOU WILL NEED TO GET REFILLS FOR YOUR TWO NEW MEDICATIONS FROM [facility]. Return to The Hospital For: SHORTNESS OF BREATH, PALPITATIONS, CHEST PAIN Activity & Diet Discharge Diet: Low Sodium Diet Activity as Tolerated: Yes Copy Copies To 1: DENISE LE APRN, MD Oct 27, 2017 12:36 pm
[2017-10-28] MEDS ORDERED: DILTIAZEM 240 MG (CARDIZEM CD) CAP PO SCH (09:00)
== END 2017-10-27 13:00 | disposition home or self-care (01) | DRG 310 ==
LOC: EDUNIT# 21:26 → ER 21:28 → ICU 23:06
PROVIDERS: ADMIT Pediatrics; ATTEND Pediatrics
DX: I48.0 Paroxysmal atrial fibrillation (principal); F17.210 Nicotine dependence, cigarettes, uncomplicated; E83.42 Hypomagnesemia; I25.10 Atherosclerotic heart disease of native coronary artery without angina pectoris; Z95.5 Presence of coronary angioplasty implant and graft; J44.9 Chronic obstructive pulmonary disease, unspecified; E78.00 Pure hypercholesterolemia, unspecified; Z66 Do not resuscitate; I10 Essential (primary) hypertension; I25.2 Old myocardial infarction; K21.9 Gastro-esophageal reflux disease without esophagitis; E78.5 Hyperlipidemia, unspecified; G89.4 Chronic pain syndrome
CPT/HCPCS: 36415; 71010; 80048; 80053; 80061; 83735; 83874; 83880; 84100; 84443; 84484; 85025; 85610; 85730; 86141; 93005; 93041

== ENCOUNTER 2017-10-29 18:12 | Emergency (ER) | payer OTHER ==
[~2017-10-29] VITALS: Ht 185.4 cm; Wt 70.3 kg
[~2017-10-29 18:12] MED LIST changes: +APIX5TAB PO; +DILT240C63 PO
--- NOTE | 2017-10-29 19:22 | ED Upper Extremity ---
General Chief Complaint: Upper Extremity Stated Complaint: RIGHT HAND SWELLING/BURNING Source: patient, other Exam Limitations: no limitations History of Present Illness Time seen by provider: 19:12 Initial Comments Patient presents to ER with significant other a chief complaint that for the past 6 months she's been experiencing intermittent every few weeks or months severe episodes of pain and some swelling in his right upper extremity starting at about the level of the wrist and radiating up his entire arm. He said his been having some popping in his neck that has no pain in his neck presently. He has no weakness anywhere else but he says it hurts to move his fingers. Sensation is good is not sure what started all this he denies any history of trauma or surgery on the neck. He says he had been diagnosed at [facility] with [place] spotted fever approximately 2 months ago and went on 15 days of antibiotics. He was also given some anti-inflammatory medications at that time but then he developed an ulcer so is not taking those anymore for his arm pain. Most recently his doctor at his primary clinic has given him oxycodone 5 mg but he says they do not even have any effect on his pain at all. He thinks he might of been on some kind of a nerve pain pill but he can't, the name and he says he is out of them anyways. He's never been told he has HSV zoster. For his ulcers he is on some kind of about once a day medicine and he has been seen by Dr. Molina because she's had 2 stents in the past and just had a stress test done that was negative within the last week or 2. The patient is on Eliquis for atrial fibrillation. Review of records shows that he was just discharged 2 days ago from a overnight stay with stress test for chest pain but no mention of right arm pain. Stress test was negative EF of 55%. He is on pantoprazole, oxycodone, Cardizem for the chest pain. No neuropathic pain meds are listed on his discharge summary. Allergies and Home Medications Allergies Coded Allergies: No Known Drug Allergies (Unverified , 08/20/17) Home Medications Apixaban 5 Mg Tablet, 5 MG PO BID, #60 Ref 0 Prescribed by: DENISE CRAWFORD on 10/27/17 1234 Aspirin 81 Mg Eriberto., 81 MG PO DAILY, (Reported) Diltiazem HCl 240 Mg Cap.er.24h, 240 MG PO DAILY, #30 Ref 0 Prescribed by: DENISE CRAWFORD on 10/27/17 1234 Oxycodone HCl/Acetaminophen 1 Each Tablet, 1 EACH PO Q4H PRN for PAIN-SEVERE, # 10 Prescribed by: TORI SEGURA on 10/04/17 2244 Pantoprazole Sodium 40 Mg Tablet.dr, 40 MG PO DAILY, (Reported) Constitutional: No chills, No dizziness, No fever EENTM: No hearing loss, No ear pain, No blurred vision, No double vision Respiratory: No cough, No short of breath Cardiovascular: No chest pain, No palpitations, No syncope Gastrointestinal: No abdominal pain Genitourinary: No discharge, No dysuria Skin: No pruritus, No rash Psychiatric/Neurological: Denies Headache, Denies Numbness, Denies Paresthesia Past Hqdfvew-Ubanuw-Kijtgs Hx Patient Social History Recreational Drug Use: No Smoking Status: Current Everyday Smoker Type Used: Cigarettes 2nd Hand Smoke Exposure: Yes Recent Foreign Travel: No Contact w/Someone Who Travel: No Recent Hopitalizations: No Immunizations Up To Date Tetanus Booster (TDap): Unknown Seasonal Allergies Seasonal Allergies: No Surgeries History of Surgeries: Yes (CARDIAC CATH--STENTS X 3) Surgeries: Cardiac, Coronary Stent Respiratory History of Respiratory Disorde: Yes Respiratory Disorders: COPD Currently Using CPAP: No Currently Using BIPAP: No Cardiovascular History of Cardiac Disorders: Yes (STENTS) Cardiac Disorders: Coronary Artery Disease, Heart Attack, High Cholesterol, Hypertension Neurological History of Neurological Disord: No Reproductive System Hx Reproductive Disorders: No Sexually Transmitted Disease: No Genitourinary History of Genitourinary Disor: No Gastrointestinal History of Gastrointestinal Di: Yes Gastrointestinal Disorders: Gastroesophageal Reflux, Ulcer Musculoskeletal History of Musculoskeletal Dis: Yes (SHOULDER, ELBOW, HAND PAIN, PAIN FROM SHIELA [place] SPOTTED FEVER ) Musculoskeletal Disorders: Arthritis Endocrine History of Endocrine Disorders: No HEENT History of HEENT Disorders: No Cancer History of Cancer: No Psychosocial History of Psychiatric Problem: No Integumentary History of Skin or Integumenta: No Blood Transfusions History of Blood Disorders: No Adverse Reaction to a Blood Tr: No Family Medical History Significant Family History: Diabetes, Hypertension Family Medial History: Cardiovascular disease Cataracts Diabetes mellitus Glaucoma Hypertension Myocardial infarction Respiratory disorder Thyroid disease Visual disorder No Family History of: AIDS Abdominal aortic aneurysm [place]'s disease Alcoholism Alzheimer's disease Aphasia Arthritis Asthma Cancer of mouth Colon cancer Completed stroke Congenital disease Congenital heart disease Coronary thrombosis Cystic fibrosis Deafness or hearing loss Dementia Drug abuse Dysphasia Fibrocystic disease of breast Gastroenteritis Headache disorder Hypercholesterolemia Infertility Kidney disease Neoplasm Not obtainable due to adoption Osteoporosis Parkinson's disease Prostate cancer Psychosocial problem Seizure disorder Severe allergy Tuberculosis Physical Exam Vital Signs Vital Sign - Last 12Hours 10/29/17 19:05 Temp 97.2 Pulse 88 Resp 16 B/P (MAP) 146/88 (107) Pulse Ox 97 O2 Delivery Room Air Capillary Refill : General Appearance: mild distress, thin HEENT: PERRL/EOMI, TMs normal, pharynx normal Neck: non-tender, full range of motion, supple, normal inspection Cardiovascular: normal peripheral pulses, regular rate, rhythm, no edema Respiratory: chest non-tender, lungs clear, normal breath sounds, no respiratory distress, no accessory muscle use Gastrointestinal: normal bowel sounds, non tender, soft Elbow/Forearm: normal inspection, non-tender, no evidence of injury, normal ROM , Right Wrist: Yes no evidence of injury (right), Yes normal ROM, No abrasions, No bone tenderness, No deformity, No ecchymosis, Yes limited ROM (secondary to pain ), Yes soft tissue tenderness, Yes swelling Hand: normal inspection, non-tender, no evidence of injury, Right, limited ROM (similar to pain) Reflexes: 2+ bicep (R), 2+ bicep (L) Neurologic/Tendon: normal sensation, normal motor functions, normal tendon functions, responds to pain, no evidence tendon injury Neurologic/Psychiatric: supervisor labor gang II-XII nml as tested, no motor/sensory deficits, alert, normal mood/affect, oriented x 3 Skin: warm/dry, other (erythematous with mild swelling around the right wrist) Progress/Results/Core Measures Results/Orders Lab Results Laboratory Tests Test 10/29/17 19:20 Range/Units White Blood Count 9.5 4.3-11.0 10^3/uL Red Blood Count 4.14 L 4.35-5.85 10^6/uL Hemoglobin 11.6 L 13.3-17.7 G/DL Hematocrit 35 L 40-54 % Mean Corpuscular Volume 85 80-99 FL Mean Corpuscular Hemoglobin 28 25-34 PG Mean Corpuscular Hemoglobin Concent 33 32-36 G/DL Red Cell Distribution Width 16.1 H 10.0-14.5 % Platelet Count 454 H 130-400 10^3/uL Mean Platelet Volume 8.5 7.4-10.4 FL Neutrophils (%) (Auto) 80 H 42-75 % Lymphocytes (%) (Auto) 12 12-44 % Monocytes (%) (Auto) 8 0-12 % Eosinophils (%) (Auto) 1 0-10 % Basophils (%) (Auto) 0 0-10 % Neutrophils # (Auto) 7.6 1.8-7.8 X 10^3 Lymphocytes # (Auto) 1.1 1.0-4.0 X 10^3 Monocytes # (Auto) 0.7 0.0-1.0 X 10^3 Eosinophils # (Auto) 0.1 0.0-0.3 10^3/uL Basophils # (Auto) 0.0 0.0-0.1 10^3/uL D-Dimer 1.18 H 0.00-0.49 UG/ML Sodium Level 137 135-145 MMOL/L Potassium Level 3.7 3.6-5.0 MMOL/L Chloride Level 105 98-107 MMOL/L Carbon Dioxide Level 21 21-32 MMOL/L Anion Gap 11 5-14 MMOL/L Blood Urea Nitrogen 25 H 7-18 MG/DL Creatinine 1.01 0.60-1.30 MG/DL Estimat Glomerular Filtration Rate > 60 BUN/Creatinine Ratio 25 Glucose Level 108 H 70-105 MG/DL Uric Acid 4.3 2.6-7.2 MG/DL Calcium Level 8.6 8.5-10.1 MG/DL Total Bilirubin 0.4 0.1-1.0 MG/DL Aspartate Amino Transf (AST/SGOT) 13 5-34 U/L Alanine Aminotransferase (ALT/SGPT) 15 0-55 U/L Alkaline Phosphatase 86 40-136 U/L Troponin I < 0.30 <0.30 NG/ML C-Reactive Protein High Sensitivity 6.28 H 0.00-0.50 MG/DL Total Protein 6.6 6.4-8.2 GM/DL Albumin 3.5 3.2-4.5 GM/DL My Orders Orders - MYNOR MURILLO Fentanyl Injection (Sublimaze Injection (10/29/17 19:15) Cbc With Automated Diff (10/29/17 19:15) Comprehensive Metabolic Panel (10/29/17 19:15) Hs C Reactive Protein (10/29/17 19:15) Fibrin Degradation Products (10/29/17 19:15) Ekg Tracing (10/29/17 19:22) Continuous Ekg Monitoring (10/29/17 19:22) Troponin I (10/29/17 19:22) Aspirin Chewable Tablet (Baby Aspirin Ch (10/29/17 19:30) Uric Acid (10/29/17 19:39) Gabapentin Capsule/Tablet (Neurontin Cap (10/29/17 20:15) Fentanyl Injection (Sublimaze Injection (10/29/17 20:30) Hsv 1&2 Pcr (Blood/Fluid) (10/29/17 20:35) Oxycodone/Acet 10/325mg Tablet (Percocet (10/29/17 22:00) Medications Given in ED Current Medications Medications Dose Ordered Sig/Keegan Route Start Time Stop Time Status Last Admin Dose Admin Aspirin 81 mg ONCE ONCE PO 10/29/17 19:30 10/29/17 19:31 DC 10/29/17 19:30 81 MG Fentanyl Citrate 75 mcg ONCE ONCE IVP 10/29/17 19:15 10/29/17 19:16 DC 10/29/17 19:27 75 MCG Fentanyl Citrate 100 mcg ONCE ONCE IVP 10/29/17 20:30 10/29/17 20:31 DC 10/29/17 20:35 100 MCG Gabapentin 300 mg ONCE ONCE PO 10/29/17 20:15 10/29/17 20:16 DC 10/29/17 20:34 300 MG Vital Signs/I&O Vital Sign - Last 12Hours 10/29/17 10/29/17 10/29/17 19:05 19:27 20:35 Temp 97.2 97.2 97.2 Pulse 88 Resp 16 B/P (MAP) 146/88 (107) Pulse Ox 97 O2 Delivery Room Air Progress Note #1: Time: 19:30 Progress Note Patient's having a little swelling and pain in his right arm that we can think about things like DVT however he is on Eliquis so this is much less likely. We' ll check an d-dimer and get a troponin and EKG for possible atypical chest pain however his previous chest pain before getting stents presented much differently than today. He is not having any chest pain or shortness of breath now. His atraumatic arm pain may also be neuropathic. If opiates do not help it and he's tried NSAIDs in the past and had some kind of gastric ulcers than perhaps a neuropathic medicine like gabapentin will be more useful. CT scan from October 04 of this year with angiography of the chest did not demonstrate while he was in pain that he had any pulmonary embolism or other vascular thrombosis. He's had an MRI of the neck in July, 3 months ago did not show any stenosis. Reference below. MRI C-spine July 2017; IMPRESSION: Degenerative changes in the cervical spine. There is no spinal canal stenosis or compression at any level. There is multilevel neural foraminal narrowing. 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 He's had a CT scan that would rule out clotting as well as he is on a blood thinner presently. The d-dimer is elevated. Thoracic outlet syndrome is rare and a true neurologic thoracic outlet syndrome usually is accompanied with ulnar nerve palsy. He is not affected by the opiates we have given him so far. We will try some gabapentin see if that makes a difference in his pain. A malignant brachial plexus pathology especially given his long history of smoking is on the differential however it was not seen on his CT angiography from earlier this month. The MRI of his C-spine does not seem to show central canal stenosis but there is some narrowing of the neural foramina. A radiculopathy from the C-spine is possible and may be related to degenerative arthritic changes of the C-spine. Something like this may respond to a course of steroids outpatient. Herpes zoster is also on the differential and he may respond to a course of antiviral since this is episodic. He has not had any vesicular rash but he has had a red erythematous streaking rash on his wrist in the past with these episodes. Progress Note #2: Time: 20:37 Progress Note To help us figure out if this is zoster we'll go ahead and obtain a blood HSV type I and 2 by PCR for the primary care physician to follow up on. We'll administer some more fentanyl wore waiting on the Neurontin. Progress Note #3: Time: 22:09 Progress Note His pain was almost gone however about 10 or 20 minutes later when we discussed discharging on some gabapentin and antivirals and possibly dose of steroids his pain came back to full severe to just like it was when he arrived. At this point I don't note will be able to control his pain with short acting opiates so we'll give him some Percocet and set him up for some more Percocet outpatient and he has follow-up tomorrow morning with his primary care physician I think this to be a reasonable next step consider nerve studies etc. ECG Initial ECG Impression Date: Oct 29, 2017 Departure Impression Impression: Primary Impression: Right arm pain Disposition: HOME, SELF-CARE Condition: Stable Departure-Patient Inst. Decision time for Depature: 22:10 Referrals: GERHARD SIU DO (PCP) Primary Care Physician JORGE JACKSON (Family) Primary Care Physician Add. Discharge Instructions: Keep your follow-up appointment in the morning with your primary care physician. Start the gabapentin 200 mg 4 times a day with some food or drink. 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 If you still have breakthrough pain you may use one or 2 the oxycodone's every 4 hours as needed. We have also sent a prescription for prednisone to be taken 2 tablets daily for 5 days. All discharge instructions reviewed with patient and/or family. Voiced understanding. Scripts Acyclovir (Acyclovir) 800 Mg Tablet 800 MG PO 5XD for 7 Days, #35 TAB 0 Refills Prov: MYNOR MURILLO 10/29/17 Gabapentin (Gabapentin) 100 Mg Capsule 200 MG PO QID Y for PAIN-MODERATE, #100 CAP 0 Refills Prov: MYNOR MURILLO 10/29/17 Oxycodone HCl/Acetaminophen (Percocet 10-325 mg Tablet) 1 Each Tablet 1-2 EACH PO Q4H Y for BREAKTHROUGH PAIN, #30 TAB 0 Refills Prov: MYNOR MURILLO 10/29/17 Ondansetron (Ondansetron Odt) 4 Mg Tab.rapdis 4 MG PO Q6H Y for NAUSEA/VOMITING, #8 TAB 0 Refills Prov: MYNOR MURILLO 10/29/17 Prednisone (Prednisone) 20 Mg Tab 40 MG PO DAILY for 5 Days, #10 TAB 0 Refills Prov: MYNOR MURILLO 10/29/17 Copy Copies To 1: GERHARD SIU TITUS J Oct 29, 2017 19:22
[2017-10-29] MEDS: fentaNYL INJECTION 100 MCG/2 ML AMP IVP ONE ×2 (19:27→20:35)
[2017-10-29] MEDS: ASPIRIN 81 MG CHEW (CHILDREN'S ASA) PO ONE (19:30)
[2017-10-29 19:37] LABS: BASOPHILS % (AUTO) 0 % (0-10); EOSINOPHILS # (AUTO) 0.1 10^3/uL (0.0-0.3); EOSINOPHILS % (AUTO) 1 % (0-10); LYMPHOCYTES # (AUTO) 1.1 X 10^3 (1.0-4.0); LYMPHOCYTES % (AUTO) 12 % (12-44); MEAN CORPUSCULAR HEMOGLOBIN 28 PG (25-34); MEAN CORPUSCULAR HGB CONC 33 G/DL (32-36); MEAN CORPUSCULAR VOLUME 85 FL (80-99); MEAN PLATELET VOLUME 8.5 FL (7.4-10.4); MONOCYTES # (AUTO) 0.7 X 10^3 (0.0-1.0); MONOCYTES % (AUTO) 8 % (0-12); NEUTROPHILS # (AUTO) 7.6 X 10^3 (1.8-7.8); NEUTROPHILS % (AUTO) 80 % (42-75); PLATELET COUNT 454 10^3/uL (130-400); RED BLOOD COUNT 4.14 10^6/uL (4.35-5.85); RED CELL DISTRIBUTION WIDTH 16.1 % (10.0-14.5); WHITE BLOOD COUNT 9.5 10^3/uL (4.3-11.0)
[2017-10-29 20:00] LABS: ALANINE AMINOTRANSFERASE 15 U/L (0-55); ALBUMIN 3.5 GM/DL (3.2-4.5); ANION GAP 11 MMOL/L (5-14); ASPARTATE AMINO TRANSFERASE 13 U/L (5-34); BILIRUBIN,TOTAL 0.4 MG/DL (0.1-1.0); BLOOD UREA NITROGEN 25 MG/DL (7-18); BUN/CREATININE RATIO 25; CALCIUM 8.6 MG/DL (8.5-10.1); CARBON DIOXIDE 21 MMOL/L (21-32); CHLORIDE 105 MMOL/L (98-107); CREATININE SERUM 1.01 MG/DL (0.60-1.30); GFR ESTIMATED > 60; GLUCOSE 108 MG/DL (70-105); POTASSIUM 3.7 MMOL/L (3.6-5.0); SODIUM 137 MMOL/L (135-145); TOTAL PROTEIN 6.6 GM/DL (6.4-8.2); hs C REACTIVE PROTEIN 6.28 MG/DL (0.00-0.50)
[2017-10-29 20:06] LABS: TROPONIN I < 0.30 NG/ML (<0.30)
[2017-10-29] MEDS: GABAPENTIN 300 MG (NEURONTIN) CAP PO ONE (20:34)
[2017-10-29] MEDS ORDERED: PRD20T PO (22:15)
[2017-10-29] MEDS ORDERED: ONDA4TAB11 PO (22:15)
[2017-10-29] MEDS ORDERED: ACYC800T PO (22:15)
[2017-10-29] MEDS ORDERED: OXYC-202 PO (22:15)
[2017-10-29] MEDS ORDERED: GABA-486 PO (22:15)
[2017-10-29] MEDS: oxyCODONE/APAP 10/325MG (PERCOCET 10) TABLET PO ONE (22:24)
[2017-10-29] MEDS: RX-OXYCODONE/APAP 5-325 MG #4 TAB PK PO PRN (22:24)
[2017-10-29] MEDS: ONDANSETRON 4 MG/2 ML (SDV) Z0FRAN IVP ONE (22:24)
[2017-10-29] MEDS ORDERED: RX-OXYCODONE/APAP 5-325 MG #4 TAB PK PO PRN (22:30)
[2017-10-29 22:33] VITALS: BP 130/85
== END 2017-10-29 22:33 | disposition home or self-care (01) ==
LOC: EDUNIT# 18:12 → ER 18:13
DX: M79.601 Pain in right arm (principal); J44.9 Chronic obstructive pulmonary disease, unspecified; I25.10 Atherosclerotic heart disease of native coronary artery without angina pectoris; I25.2 Old myocardial infarction; E78.00 Pure hypercholesterolemia, unspecified; I10 Essential (primary) hypertension; K21.9 Gastro-esophageal reflux disease without esophagitis; F17.210 Nicotine dependence, cigarettes, uncomplicated; Z95.5 Presence of coronary angioplasty implant and graft; Z87.19 Personal history of other diseases of the digestive system; Z79.82 Long term (current) use of aspirin; Z82.49 Family history of ischemic heart disease and other diseases of the circulatory system
CPT/HCPCS: 36415; 80053; 84484; 84550; 85025; 85027; 85379; 86141; 87529; 93005

== ENCOUNTER 2017-12-22 07:55 | Emergency (ER) | payer OTHER ==
[~2017-12-22] VITALS: Ht 185.4 cm; Wt 70.3 kg
[~2017-12-22 07:55] MED LIST changes: +ACYC800T PO; +GABA-486 PO; +ONDA4TAB11 PO; +OXYC-202 PO
[2017-12-22] MEDS ORDERED: ASPIRIN 81 MG CHEW (CHILDREN'S ASA) PO ONE (08:00)
[2017-12-22] MEDS ORDERED: NS IV 1000 ML 1,000 ML IV ONE (08:01)
--- OUTSIDE RECORDS SUMMARY | 2017-12-22 08:02 | XMS REPORT | Continuity of Care Document ---
Author Author [facility] Organization [facility] Address Unknown Phone Unavailable Allergies Active Description Code Type Severity Reaction Onset Reported/Identified Relationship to Patient Clinical Status Yes No Known Drug Allergies [id number] Drug Allergy Unknown N/A 08/20/2017 Medications There [...] MD, Ot I25.10 ATHSCL HEART DISEASE OF [place] CORONARY 09/01/2015 DANNY PRATER MD Ot K21.9 GASTRO-ESOPHAGEAL REFLUX DISEASE WITHOUT 09/01/2015 DANNY PRATER MD Ot Z82.49 FAMILY HX OF ISCHEM HEART DIS AND OTH DI 07/18/2016 DANNY PRATER MD, Ot I10 ESSENTIAL (PRIMARY) HYPERTENSION 07/18/2016 DANNY PRATER MD, Ot I25.10 ATHSCL HEART DISEASE OF [place] CORONARY 07/18/2016 DANNY PRATER MD Ot I34.0 NONRHEUMATIC MITRAL (VALVE) INSUFFICIENC 07/18/2016 DANNY PRATER MD Ot R07.9 CHEST PAIN, UNSPECIFIED 07/18/2016 DANNY PRATER MD Ot Z72.0 TOBACCO USE 08/07/2016 DANNY RPATER MD Ot I10 ESSENTIAL (PRIMARY) HYPERTENSION 08/07/2016 DANNY PRATER MD Ot I25.10 ATHSCL HEART DISEASE OF [place] CORONARY 08/07/2016 DANNY PRATER MD Ot I34.0 NONRHEUMATIC MITRAL (VALVE) INSUFFICIENC 08/07/2016 DANNY PRATER MD Ot R07.9 CHEST PAIN, UNSPECIFIED 08/07/2016 DANNY PRATER MD Ot Z72.0 TOBACCO USE 06/19/2017 DANNY PRATER MD, Ot I10 ESSENTIAL (PRIMARY) HYPERTENSION 06/19/2017 DANNY PRATER MD Ot I25.10 ATHSCL HEART DISEASE OF [place] CORONARY 06/19/2017 DANNY PRATER MD Ot I34.0 [...] SHOULDER 06/19/2017 TAY CARRASQUILLO DO Ot Z79.82 LONG-TERM (CURRENT) USE OF ASPIRIN 06/19/2017 TAY CARRASQUILLO DO Ot Z82.49 FAMILY HX OF ISCHEM HEART DIS AND OTH DI 06/19/2017 DANNY PRATER MD Ot I10 ESSENTIAL (PRIMARY) HYPERTENSION 06/19/2017 DANNY PRATER MD Ot I25.10 ATHSCL HEART DISEASE OF [place] CORONARY 06/19/2017 DANNY PRATER MD Ot I34.0 NONRHEUMATIC MITRAL (VALVE) INSUFFICIENC 06/19/2017 DANNY PRATER MD Ot R07.9 CHEST PAIN, UNSPECIFIED 06/19/2017 DANNY PRATER MD Ot Z72.0 TOBACCO USE 06/22/2017 NEIDA WHITE TAY Wendy Ot F17.200 NICOTINE DEPENDENCE, UNSPECIFIED, UNCOMP 06/22/2017 TAY CARRASQUILLO DO Ot I25.2 OLD MYOCARDIAL INFARCTION 06/22/2017 TAY CARRASQUILLO DO Ot J44.9 CHRONIC OBSTRUCTIVE PULMONARY DISEASE, U 06/22/2017 TAY CARRASQUILLO DO Ot K21.9 GASTRO-ESOPHAGEAL REFLUX DISEASE WITHOUT 06/22/2017 NEIDA WHITE TAY K Ot M19.011 PRIMARY OSTEOARTHRITIS, RIGHT SHOULDER 06/22/2017 NEIDA WHITE TAY K Ot M19.012 PRIMARY OSTEOARTHRITIS, LEFT SHOULDER 06/22/2017 NEIDA WHITE TAY K Ot M25.511 PAIN IN RIGHT SHOULDER 06/22/2017 NEIDA WHITE TAY K Ot Z79.82 MANAGEMENT NURSE RN (CURRENT) USE OF ASPIRIN 06/22/2017 NEIDA WHITE TAY Wendy Ot Z82.49 FAMILY HX OF ISCHEM HEART DIS AND OTH DI 07/21/2017 AMY LEAL MD Ot E78.00 PURE HYPERCHOLESTEROLEMIA, UNSPECIFIED 07/21/2017 AMY LEAL MD Ot F17.210 NICOTINE DEPENDENCE, CIGARETTES, UNCOMPL 07/21/2017 AMY LEAL MD Ot I10 ESSENTIAL (PRIMARY) HYPERTENSION 07/21/2017 AMY LELA MD, Ot I25.10 ATHSCL HEART DISEASE OF [place] CORONARY 07/21/2017 AMY LEAL MD, Ot I25.2 [...] MD Ot I25.10 ATHSCL HEART DISEASE OF [place] CORONARY 08/21/2017 DAGOBERTO DONALDSON MD Ot I34.0 [...] Ot R11.2 NAUSEA WITH VOMITING, UNSPECIFIED 08/21/2017 DAGOEBRTO DONALDSON MD Ot R19.7 DIARRHEA, UNSPECIFIED 08/21/2017 DAGOBERTO DONALDSON MD Ot Z79.82 MANAGEMENT NURSE RN (CURRENT) USE OF ASPIRIN 08/21/2017 DAGOBERTO DONALDSON MD Ot Z79.899 OTHER MANAGEMENT NURSE RN (CURRENT) DRUG THERAPY 08/21/2017 DANNY PRATER MD Ot I10 ESSENTIAL (PRIMARY) HYPERTENSION 08/21/2017 DANNY PRATER MD Ot I25.10 ATHSCL HEART DISEASE OF [place] CORONARY 08/21/2017 DANNY PRATER MD Ot I34.0 NONRHEUMATIC MITRAL (VALVE) INSUFFICIENC 08/21/2017 DANNY PRATER MD Ot R07.9 CHEST PAIN, UNSPECIFIED 08/21/2017 DANNY PRATER MD Ot Z72.0 TOBACCO USE 08/24/2017 DANNY PRATER MD Ot I10 ESSENTIAL (PRIMARY) HYPERTENSION 08/24/2017 DANNY PRATER MD Ot I25.10 ATHSCL HEART DISEASE OF [place] CORONARY 08/24/2017 DANNY PRATER MD Ot I34.0 NONRHEUMATIC MITRAL (VALVE) INSUFFICIENC 08/24/2017 DANNY PRATER MD Ot R07.9 CHEST PAIN, UNSPECIFIED 08/24/2017 DANNY PRATER MD Ot Z72.0 TOBACCO USE 08/24/2017 DAGOBERTO DONALDSON MD Ot I10 ESSENTIAL (PRIMARY) HYPERTENSION 08/24/2017 DAGOBERTO DONALDSON MD Ot I25.10 ATHSCL HEART DISEASE OF [place] CORONARY 08/24/2017 DAGOBERTO DONALDSON MD Ot I71.4 [...] OBSTRUCTION 08/24/2017 DAGOBERTO DONALDSON MD Ot Z79.82 MANAGEMENT NURSE RN (CURRENT) USE OF ASPIRIN 08/24/2017 DAGOBERTO DONALDSON MD Ot Z79.899 OTHER MANAGEMENT NURSE RN (CURRENT) DRUG THERAPY 08/25/2017 DAGOBERTO DONALDSON MD Ot I10 ESSENTIAL (PRIMARY) HYPERTENSION 08/25/2017 DAGOBERTO DONALDSON MD Ot I25.10 ATHSCL HEART DISEASE OF [place] CORONARY 08/25/2017 DAGOBERTO DONALDSON MD Ot I71.4 [...] OBSTRUCTION 08/25/2017 DAGOBERTO DONALDSON MD Ot Z79.82 LONG-TERM (CURRENT) USE OF ASPIRIN 08/25/2017 DAGOBERTO DONALDSON MD Ot Z79.899 OTHER LONG-TERM (CURRENT) DRUG THERAPY 09/04/2017 DAGOBERTO DONALDSON MD Ot I10 ESSENTIAL (PRIMARY) HYPERTENSION 09/04/2017 DAGOBERTO DONALDSON MD Ot I25.10 ATHSCL HEART DISEASE OF [place] CORONARY 09/04/2017 DAGOBERTO DONALDSON MD Ot I71.4 [...] 09/04/2017 MENDOZA PETERS, DAGOBERTO Weller Ot Z79.82 MANAGEMENT NURSE RN (CURRENT) USE OF ASPIRIN 09/04/2017 DAGOBERTO DONALDSON MD Ot Z79.899 OTHER LONG-TERM (CURRENT) DRUG THERAPY 10/04/2017 TORI SEGURA APRN Ot E78.00 PURE HYPERCHOLESTEROLEMIA, UNSPECIFIED 10/04/2017 TORI SEGURA APRN Ot I10 ESSENTIAL (PRIMARY) HYPERTENSION 10/04/2017 TORI SEGURA APRN Ot I25.10 ATHSCL HEART DISEASE OF [place] CORONARY 10/04/2017 TORI SEGURA APRN Ot I25.2 [...] SMO 10/04/2017 TORI SEGURA APRN Ot Z79.82 MANAGEMENT NURSE RN (CURRENT) USE OF ASPIRIN 10/04/2017 TORI SEGURA APRN Ot Z82.49 FAMILY HX OF ISCHEM HEART DIS AND OTH DI 10/04/2017 TORI SEGURA APRN Ot Z87.19 PERSONAL HISTORY OF OTHER DISEASES OF TH 10/04/2017 TORI SEGURA APRN Ot Z95.5 PRESENCE OF CORONARY ANGIOPLASTY IMPLANT 10/06/2017 DANNY PRATER MD Ot I10 ESSENTIAL (PRIMARY) HYPERTENSION 10/06/2017 DANNY PRATER MD, Ot I25.10 ATHSCL HEART DISEASE OF [place] CORONARY 10/06/2017 DANNY PRATER MD Ot I34.0 NONRHEUMATIC MITRAL (VALVE) INSUFFICIENC 10/06/2017 DANNY PRATER MD, Ot R07.9 CHEST PAIN, UNSPECIFIED 10/06/2017 DANNY PRATER MD Ot Z72.0 TOBACCO USE 10/07/2017 DANNY PRATER MD Ot I10 ESSENTIAL (PRIMARY) HYPERTENSION 10/07/2017 DANNY PRATER MD Ot I25.10 ATHSCL HEART DISEASE OF [place] CORONARY 10/07/2017 DANNY PRATER MD Ot I34.0 NONRHEUMATIC MITRAL (VALVE) INSUFFICIENC 10/07/2017 DANNY PRATER MD Ot R07.9 CHEST PAIN, UNSPECIFIED 10/07/2017 DANNY PRATER MD Ot Z72.0 TOBACCO USE 10/07/2017 DANNY PRATER MD Ot I10 ESSENTIAL (PRIMARY) HYPERTENSION 10/07/2017 DANNY PRATER MD Ot I25.10 ATHSCL HEART DISEASE OF [place] CORONARY 10/07/2017 DANNY PRATER MD Ot I34.0 NONRHEUMATIC MITRAL (VALVE) INSUFFICIENC 10/07/2017 DANNY PRATER MD Ot R07.9 CHEST PAIN, UNSPECIFIED 10/07/2017 DANNY PRATER MD Ot Z72.0 TOBACCO USE 10/08/2017 DANNY PRATER MD Ot I10 ESSENTIAL (PRIMARY) HYPERTENSION 10/08/2017 DANNY PRATER MD Ot I25.10 ATHSCL HEART DISEASE OF [place] CORONARY 10/08/2017 DANNY PRATER MD Ot I34.0 NONRHEUMATIC MITRAL (VALVE) INSUFFICIENC 10/08/2017 DANNY PRATER MD Ot R07.89 OTHER CHEST PAIN 10/08/2017 DANNY PRATER MD Ot Z72.0 TOBACCO USE 10/27/2017 DENISE CORTES MD Ot E78.00 PURE HYPERCHOLESTEROLEMIA, UNSPECIFIED 10/27/2017 DENISE CORTES MD Ot E78.5 HYPERLIPIDEMIA, UNSPECIFIED 10/27/2017 DENISE CORTES MD Ot E83.42 HYPOMAGNESEMIA 10/27/2017 DENISE CORTES MD Ot F17.210 NICOTINE DEPENDENCE, CIGARETTES, UNCOMPL 10/27/2017 DENISE CORTES MD Ot G89.4 CHRONIC PAIN SYNDROME 10/27/2017 DENISE CORTES MD Ot I10 ESSENTIAL (PRIMARY) HYPERTENSION 10/27/2017 DENISE CORTES MD Ot I25.10 ATHSCL HEART DISEASE OF [place] CORONARY 10/27/2017 DENISE CORTES MD Ot I25.2 OLD MYOCARDIAL INFARCTION 10/27/2017 DENISE CORTES MD Ot I48.0 PAROXYSMAL ATRIAL FIBRILLATION 10/27/2017 DENISE CORTES MD Ot J44.9 CHRONIC OBSTRUCTIVE PULMONARY DISEASE, U 10/27/2017 DENISE CORTES MD Ot K21.9 GASTRO-ESOPHAGEAL REFLUX DISEASE WITHOUT 10/27/2017 DENISE CORTES MD Ot Z66 DO NOT RESUSCITATE 10/27/2017 DENISE CORTES MD Ot Z95.5 PRESENCE OF CORONARY ANGIOPLASTY IMPLANT 10/29/2017 MYNOR MURILLO MD Ot E78.00 PURE HYPERCHOLESTEROLEMIA, UNSPECIFIED 10/29/2017 MYNOR MURILLO MD Ot F17.210 NICOTINE DEPENDENCE, CIGARETTES, UNCOMPL 10/29/2017 MYNOR MURILLO MD Ot I10 ESSENTIAL (PRIMARY) HYPERTENSION 10/29/2017 MYNOR MURILLO MD Ot I25.10 ATHSCL HEART DISEASE OF [place] CORONARY 10/29/2017 MYNOR MURILLO MD Ot I25.2 OLD MYOCARDIAL INFARCTION 10/29/2017 MYNOR MURILLO MD Ot J44.9 CHRONIC OBSTRUCTIVE PULMONARY DISEASE, U 10/29/2017 MYNOR MUIRLLO MD Ot K21.9 GASTRO-ESOPHAGEAL REFLUX DISEASE WITHOUT 10/29/2017 MYNOR MURILLO MD Ot M79.601 PAIN IN RIGHT ARM 10/29/2017 MYNOR MURILLO MD Ot M79.89 OTHER SPECIFIED SOFT TISSUE DISORDERS 10/29/2017 MYNOR MURILLO MD Ot Z79.82 LONG-TERM (CURRENT) USE OF ASPIRIN 10/29/2017 MYNOR MURILLO MD Ot Z82.49 FAMILY HX OF ISCHEM HEART DIS AND OTH DI 10/29/2017 MYNOR MURILLO MD Ot Z87.19 PERSONAL HISTORY OF OTHER DISEASES OF TH 10/29/2017 MYNOR MURILLO MD Ot Z95.5 PRESENCE OF CORONARY ANGIOPLASTY IMPLANT 10/29/2017 DANNY PRATER MD Ot I10 ESSENTIAL (PRIMARY) HYPERTENSION 10/29/2017 DANNY PRATER MD Ot I25.10 ATHSCL HEART DISEASE OF [place] CORONARY 10/29/2017 DANNY PRATER MD Ot I34.0 NONRHEUMATIC MITRAL (VALVE) INSUFFICIENC 10/29/2017 DANNY PRATER MD Ot R07.9 CHEST PAIN, UNSPECIFIED 10/29/2017 DANNY PRATER MD Ot Z72.0 TOBACCO USE 10/29/2017 DANNY PRATER MD Ot I10 ESSENTIAL (PRIMARY) HYPERTENSION 10/29/2017 DANNY PRATER MD Ot I25.10 ATHSCL HEART DISEASE OF [place] CORONARY 10/29/2017 DANNY PRATER MD Ot I34.0 NONRHEUMATIC MITRAL (VALVE) INSUFFICIENC 10/29/2017 DANNY PRATER MD Ot R07.89 OTHER CHEST PAIN 10/29/2017 DANNY PRATER MD Ot Z72.0 TOBACCO USE 10/29/2017 DANNY PRATER MD Ot I10 ESSENTIAL (PRIMARY) HYPERTENSION 10/29/2017 DANNY PRATER MD Ot I25.10 ATHSCL HEART DISEASE OF [place] CORONARY 10/29/2017 DANNY PRATER MD Ot I34.0 NONRHEUMATIC MITRAL (VALVE) INSUFFICIENC 10/29/2017 DANNY PRATER MD Ot R07.89 OTHER CHEST PAIN 10/29/2017 DANNY PRATER MD Ot Z72.0 TOBACCO USE 10/29/2017 DANNY PRATER MD Ot I10 ESSENTIAL (PRIMARY) HYPERTENSION 10/29/2017 DANNY PRATER MD Ot I25.10 ATHSCL HEART DISEASE OF [place] CORONARY 10/29/2017 DANNY PRATER MD Ot I34.0 NONRHEUMATIC MITRAL (VALVE) INSUFFICIENC 10/29/2017 DANNY PRATER MD Ot R07.89 OTHER CHEST PAIN 10/29/2017 DANNY PRATER MD Ot Z72.0 TOBACCO USE 10/29/2017 DANNY PRATER MD Ot I10 ESSENTIAL (PRIMARY) HYPERTENSION 10/29/2017 DANNY PRATER MD Ot I25.10 ATHSCL HEART DISEASE OF [place] CORONARY 10/29/2017 DANNY PRATER MD Ot I34.0 NONRHEUMATIC MITRAL (VALVE) INSUFFICIENC 10/29/2017 DANNY PRATER MD Ot R07.89 OTHER CHEST PAIN 10/29/2017 DANNY PRATER MD Ot Z72.0 TOBACCO USE Procedures Code Description Performed By Performed On [id number] DILATION OF 1 COR ART WITH DRUG-ELUT INT 08/30/2015 [id number] MEASURE OF CARDIAC SAMPL PRESSURE, L H 08/30/2015 [id number] FLUOROSCOPY OF MULT COR ART USING L OSM 08/30/2015 [id number] FLUOROSCOPY OF LEFT HEART USING LOW OSMO 08/30/2015 [id number] MEASURE OF CARDIAC SAMPL PRESSURE, L H 08/31/2015 [id number] FLUOROSCOPY OF MULT COR ART USING L [...] rickettsii IgG antibody assay (units/volume) < <1:16 [place] spotted fever panel < <1:10 Francisella tularensis [...] Detected Urine Neisseria gonorrhoeae DNA assay - 09/18/17 13:25 Gonorrhea amp DNA-urine Not Detected Not [...] NEGATIVE NEGATIVE Urine propoxyphene detection NEGATIVE NEGATIVE Complete blood count (CBC) with automated white blood cell (WBC) differential - 10/26/17 21:48 Blood leukocytes automated count (number/volume) 8.6 10*3/uL 4.3-11.0 Blood erythrocytes automated count (number/volume) 4.80 10*6/uL 4.35-5.85 Venous blood hemoglobin measurement (mass/volume) 13.6 g/dL 13.3-17.7 Blood hematocrit (volume fraction) 40 % 40-54 Automated erythrocyte mean corpuscular volume 84 [foz_us] 80-99 Automated erythrocyte mean corpuscular hemoglobin (mass per erythrocyte) 28 pg 25-34 Automated erythrocyte mean corpuscular hemoglobin concentration measurement ( mass/volume) 34 g/dL 32-36 Automated erythrocyte distribution width ratio 16.4 % 10.0-14.5 Automated blood platelet count (count/volume) 444 10*3/uL 130-400 Automated blood platelet mean volume measurement 8.4 [foz_us] 7.4-10.4 Automated blood neutrophils/100 leukocytes 69 % 42-75 Automated blood lymphocytes/100 leukocytes 22 % 12-44 Blood monocytes/100 leukocytes 8 % 0-12 Automated blood eosinophils/100 leukocytes 1 % 0-10 Automated blood basophils/100 leukocytes 1 % 0-10 Blood neutrophils automated count (number/volume) 6.0 10*3 1.8-7.8 Blood lymphocytes automated count (number/volume) 1.9 10*3 1.0-4.0 Blood monocytes automated count (number/volume) 0.7 10*3 0.0-1.0 Automated eosinophil count 0.1 10*3/uL 0.0-0.3 Automated blood basophil count (count/volume) 0.0 10*3/uL 0.0-0.1 PT panel in platelet poor plasma by coagulation assay - 10/26/17 21:48 Prothrombin time (PT) in platelet poor plasma by coagulation assay 13.3 s 12.2-14.7 INR in platelet poor plasma or blood by coagulation assay 1.0 0.8-1.4 Activated partial thromboplastin time (aPTT) in platelet poor plasma bycoagulation assay - 10/26/17 21:48 Activated partial thromboplastin time (aPTT) in platelet poor plasma bycoagulation assay 34 s 24-35 Serum or plasma thyrotropin measurement by detection limit <=0.05 miu/l (units/ volume) - 10/26/17 21:48 Serum or plasma thyrotropin measurement by detection limit <=0.05 miu/l (units/ volume) 2.09 u[iU]/mL 0.35-4.94 Comprehensive metabolic panel - 10/26/17 21:48 Serum or plasma sodium measurement (moles/volume) 139 mmol/L 135-145 Serum or plasma potassium measurement (moles/volume) 3.9 mmol/L 3.6-5.0 Serum or plasma chloride measurement (moles/volume) 104 mmol/L 98-107 Carbon dioxide 17 mmol/L 21-32 Serum or plasma anion gap determination (moles/volume) 18 mmol/L 5-14 Serum or plasma urea nitrogen measurement (mass/volume) 27 mg/dL 7-18 Serum or plasma creatinine measurement (mass/volume) 1.28 mg/dL 0.60-1.30 Serum or plasma urea nitrogen/creatinine mass ratio 21 NRG Serum or plasma creatinine measurement with calculation of estimated glomerular filtration rate 57 NRG Serum or plasma glucose measurement (mass/volume) 117 mg/dL 70-105 Serum or plasma calcium measurement (mass/volume) 9.1 mg/dL 8.5-10.1 Serum or plasma total bilirubin measurement (mass/volume) 0.6 mg/dL 0.1-1.0 Serum or plasma alkaline phosphatase measurement (enzymatic activity/volume) 80 U/L 40-136 Serum or plasma aspartate aminotransferase measurement (enzymatic activity/ volume) 11 U/L 5-34 Serum or plasma alanine aminotransferase measurement (enzymatic activity/volume ) 12 U/L 0-55 Serum or plasma protein measurement (mass/volume) 6.8 g/dL 6.4-8.2 Serum or plasma albumin measurement (mass/volume) 3.5 g/dL 3.2-4.5 Magnesium - 10/26/17 21:48 Magnesium 1.8 mg/dL 1.8-2.4 Myoglobin, serum - 10/26/17 21:48 Myoglobin, serum 46.8 ng/mL 10.0-92.0 Serum or plasma troponin i.cardiac measurement (mass/volume) - 10/26/17 21:48 Serum or plasma troponin i.cardiac measurement (mass/volume) < ng/ mL <0.30 Myoglobin, serum - 10/26/17 21:48 Myoglobin, serum 46.8 ng/mL 10.0-92.0 Serum or plasma lithium measurement (moles/volume) - 10/26/17 21:48 BNP level 103.0 pg/mL <100.0 Serum or plasma C reactive protein measurement (mass/volume) - 10/26/17 21:48 Serum or plasma C reactive protein measurement (mass/volume) 9.79 mg /dL 0.00-0.50 Complete blood count (CBC) with automated white blood cell (WBC) differential - 10/27/17 05:00 Blood leukocytes automated count (number/volume) 5.0 10*3/uL 4.3-11.0 Blood erythrocytes automated count (number/volume) 4.04 10*6/uL 4.35-5.85 Venous blood hemoglobin measurement (mass/volume) 11.4 g/dL 13.3-17.7 Blood hematocrit (volume fraction) 35 % 40-54 Automated erythrocyte mean corpuscular volume 86 [foz_us] 80-99 Automated erythrocyte mean corpuscular hemoglobin (mass per erythrocyte) 28 pg 25-34 Automated erythrocyte mean corpuscular hemoglobin concentration measurement ( mass/volume) 33 g/dL 32-36 Automated erythrocyte distribution width ratio 16.5 % 10.0-14.5 Automated blood platelet count (count/volume) 342 10*3/uL 130-400 Automated blood platelet mean volume measurement 7.9 [foz_us] 7.4-10.4 Automated blood neutrophils/100 leukocytes 67 % 42-75 Automated blood lymphocytes/100 leukocytes 23 % 12-44 Blood monocytes/100 leukocytes 8 % 0-12 Automated blood eosinophils/100 leukocytes 1 % 0-10 Automated blood basophils/100 leukocytes 0 % 0-10 Blood neutrophils automated count (number/volume) 3.3 10*3 1.8-7.8 Blood lymphocytes automated count (number/volume) 1.1 10*3 1.0-4.0 Blood monocytes automated count (number/volume) 0.4 10*3 0.0-1.0 Automated eosinophil count 0.1 10*3/uL 0.0-0.3 Automated blood basophil count (count/volume) 0.0 10*3/uL 0.0-0.1 Whole blood basic metabolic panel - 10/27/17 05:00 Serum or plasma sodium measurement (moles/volume) 141 mmol/L 135-145 Serum or plasma potassium measurement (moles/volume) 3.7 mmol/L 3.6-5.0 Serum or plasma chloride measurement (moles/volume) 110 mmol/L 98-107 Carbon dioxide 20 mmol/L 21-32 Serum or plasma anion gap determination (moles/volume) 11 mmol/L 5-14 Serum or plasma urea nitrogen measurement (mass/volume) 21 mg/dL 7-18 Serum or plasma creatinine measurement (mass/volume) 0.81 mg/dL 0.60-1.30 Serum or plasma urea nitrogen/creatinine mass ratio 26 NRG Serum or plasma creatinine measurement with calculation of estimated glomerular filtration rate > NRG Serum or plasma glucose measurement (mass/volume) 89 mg/dL 70-105 Serum or plasma calcium measurement (mass/volume) 7.8 mg/dL 8.5-10.1 Serum or plasma phosphate measurement (mass/volume) - 10/27/17 05:00 Serum or plasma phosphate measurement (mass/volume) 2.6 mg/dL 2.3-4.7 Magnesium - 10/27/17 05:00 Magnesium 1.7 mg/dL 1.8-2.4 Lipid 1996 panel - 10/27/17 05:00 Serum or plasma triglyceride measurement (mass/volume) 87 mg/dL <150 Serum or plasma cholesterol measurement (mass/volume) 158 mg/dL < 200 Serum or plasma cholesterol in HDL measurement (mass/volume) 25 mg/ dL 40-60 Cholesterol in LDL [mass/volume] in serum or plasma by direct assay 123 mg/dL 1-129 Serum or plasma cholesterol in VLDL measurement (mass/volume) 17 mg/ dL 5-40 Fibrin D-dimer FEU measurement in platelet poor plasma (mass/volume) - 19:20 Fibrin D-dimer FEU measurement in platelet poor plasma (mass/volume) 1.18 ug/mL 0.00-0.49 Comprehensive metabolic panel - 10/29/17 19:20 Serum or plasma sodium measurement (moles/volume) 137 mmol/L 135-145 Serum or plasma potassium measurement (moles/volume) 3.7 mmol/L 3.6-5.0 Serum or plasma chloride measurement (moles/volume) 105 mmol/L 98-107 Carbon dioxide 21 mmol/L 21-32 Serum or plasma anion gap determination (moles/volume) 11 mmol/L 5-14 Serum or plasma urea nitrogen measurement (mass/volume) 25 mg/dL 7-18 Serum or plasma creatinine measurement (mass/volume) 1.01 mg/dL 0.60-1.30 Serum or plasma urea nitrogen/creatinine mass ratio 25 NRG Serum or plasma creatinine measurement with calculation of estimated glomerular filtration rate > NRG Serum or plasma glucose measurement (mass/volume) 108 mg/dL 70-105 Serum or plasma calcium measurement (mass/volume) 8.6 mg/dL 8.5-10.1 Serum or plasma total bilirubin measurement (mass/volume) 0.4 mg/dL 0.1-1.0 Serum or plasma alkaline phosphatase measurement (enzymatic activity/volume) 86 U/L 40-136 Serum or plasma aspartate aminotransferase measurement (enzymatic activity/ volume) 13 U/L 5-34 Serum or plasma alanine aminotransferase measurement (enzymatic activity/volume ) 15 U/L 0-55 Serum or plasma protein measurement (mass/volume) 6.6 g/dL 6.4-8.2 Serum or plasma albumin measurement (mass/volume) 3.5 g/dL 3.2-4.5 Serum or plasma troponin i.cardiac measurement (mass/volume) - 10/29/17 19:20 Serum or plasma troponin i.cardiac measurement (mass/volume) < ng/ mL <0.30 Serum or plasma uric acid measurement (mass/volume) - 10/29/17 19:20 Serum or plasma uric acid measurement (mass/volume) 4.3 mg/dL 2.6-7.2 Complete blood count (CBC) with automated white blood cell (WBC) differential - 10/29/17 19:20 Blood leukocytes automated count (number/volume) 9.5 10*3/uL 4.3-11.0 Blood erythrocytes automated count (number/volume) 4.14 10*6/uL 4.35-5.85 Venous blood hemoglobin measurement (mass/volume) 11.6 g/dL 13.3-17.7 Blood hematocrit (volume fraction) 35 % 40-54 Automated erythrocyte mean corpuscular volume 85 [foz_us] 80-99 Automated erythrocyte mean corpuscular hemoglobin (mass per erythrocyte) 28 pg 25-34 Automated erythrocyte mean corpuscular hemoglobin concentration measurement ( mass/volume) 33 g/dL 32-36 Automated erythrocyte distribution width ratio 16.1 % 10.0-14.5 Automated blood platelet count (count/volume) 454 10*3/uL 130-400 Automated blood platelet mean volume measurement 8.5 [foz_us] 7.4-10.4 Automated blood neutrophils/100 leukocytes 80 % 42-75 Automated blood lymphocytes/100 leukocytes 12 % 12-44 Blood monocytes/100 leukocytes 8 % 0-12 Automated blood eosinophils/100 leukocytes 1 % 0-10 Automated blood basophils/100 leukocytes 0 % 0-10 Blood neutrophils automated count (number/volume) 7.6 10*3 1.8-7.8 Blood lymphocytes automated count (number/volume) 1.1 10*3 1.0-4.0 Blood monocytes automated count (number/volume) 0.7 10*3 0.0-1.0 Automated eosinophil count 0.1 10*3/uL 0.0-0.3 Automated blood basophil count (count/volume) 0.0 10*3/uL 0.0-0.1 Serum or plasma C reactive protein measurement (mass/volume) - 10/29/17 19:20 Serum or plasma C reactive protein measurement (mass/volume) 6.28 mg /dL 0.00-0.50 HSV 1T2 PCR (BLOOD/FLUID) - 10/29/17 19:20 Specimen type Blood NRG Herpes simplex virus (HSV) type 1 DNA detection by polymerase chain reaction Not Detected NOT DET Herpes simplex virus (HSV) type 2 DNA detection by PCR Not Detected NOT DET Encounters ACCT No. Visit Date/Time Discharge Status Pt. Type Provider Facility Loc./Unit Complaint [id number] 10/29/2017 18:13:00 10/29/2017 22:33:00 DIS Emergency MYNOR MURILOL MD [facility] ER RIGHT HAND SWELLING/ BURNING [id number] 10/26/2017 23:06:00 10/27/2017 13:00:00 DIS Inpatient DENISE CORTES MD [facility] ICU NEW ONSET A-FIB [id number] 10/07/2017 11:17:00 10/07/2017 23:59:59 CLS Outpatient DANNY PRATER MD [facility] CARD CAD I25.10 [id number] 10/07/2017 11:14:00 10/07/2017 23:59:59 CLS Outpatient DANNY PRATER MD [facility] CARD I25.10 CAD [id number] 10/04/2017 21:24:00 10/04/2017 23:31:00 DIS Emergency TORI SEGURA APRN [facility] ER AB PAIN R HAND SWOLLEN [id number] 08/24/2017 11:55:00 08/24/2017 16:50:00 DIS Outpatient DAGOBERTO DONALDSON MD [facility] ENDO RIGHT UPPER QUADRANT ABD PAIN/EPIGASTRIC PAIN [id number] 08/20/2017 16:10:00 08/21/2017 12:45:00 DIS Inpatient DAGOBERTO DONALDSON MD [facility] 4TH ACUTE ABD PAIN [id number] 08/18/2017 18:51:00 08/18/2017 22:42:00 DIS Emergency MYNOR MURILLO MD [facility] ER CP [id number] 07/19/2017 20:54:00 07/21/2017 12:40:00 DIS Inpatient AMY LEAL MD [facility] 4TH CELLULITIS B WRISTS [id number] 06/19/2017 08:12:00 06/19/2017 10:50:00 DIS Emergency TAY CARRASQUILLO DO [facility] ER SHOULDERS/HANDS PAIN [id number] 2016 07:44:00 2016 23:59:59 CLS Outpatient DANNY PRATER MD [facility] CARD CAD,CHEST PAIN SYNDROME, HTN,MR,TOBACCO USE [id number] 08/30/2015 18:11:00 09/01/2015 14:20:00 DIS Inpatient DANNY PRATER MD [facility] ICU UPPER ABD PAIN [id number] 08/13/2014 03:41:00 08/14/2014 20:50:00 DIS Inpatient ANTONIO PETERS FACC, SKYLER BUSTOS CCDS [facility] CSD CHEST PAIN
[2017-12-22 08:11] LABS: BASOPHILS # (AUTO) 0.1 10^3/uL (0.0-0.1); BASOPHILS % (AUTO) 0 % (0-10); EOSINOPHILS # (AUTO) 0.1 10^3/uL (0.0-0.3); EOSINOPHILS % (AUTO) 0 % (0-10); HEMATOCRIT 39 % (40-54); HEMOGLOBIN 13.2 G/DL (13.3-17.7); LYMPHOCYTES % (AUTO) 18 % (12-44); MEAN CORPUSCULAR HEMOGLOBIN 28 PG (25-34); MEAN CORPUSCULAR HGB CONC 34 G/DL (32-36); MEAN CORPUSCULAR VOLUME 83 FL (80-99); MONOCYTES # (AUTO) 0.9 X 10^3 (0.0-1.0); MONOCYTES % (AUTO) 6 % (0-12); NEUTROPHILS # (AUTO) 12.8 X 10^3 (1.8-7.8); NEUTROPHILS % (AUTO) 76 % (42-75); PLATELET COUNT 774 10^3/uL (130-400); RED BLOOD COUNT 4.68 10^6/uL (4.35-5.85); RED CELL DISTRIBUTION WIDTH 16.3 % (10.0-14.5); WHITE BLOOD COUNT 16.8 10^3/uL (4.3-11.0)
--- NOTE | 2017-12-22 08:14 | ED Chest Pain ---
General Chief Complaint: Chest Pain Stated Complaint: CP Source: patient Exam Limitations: no limitations History of Present Illness Date Seen by Provider: Dec 22, 2017 Time Seen by Provider: 07:55 Initial Comments Here with report of palpitations that started about 30 minutes ago. A coughing fit. Has been coughing for the last few days. Currently quitting smoking and he is on Chantix. States that it feels like his A. fib is back. [place] weak and was unable to walk without significant weakness or even stand. Denies chest pain otherwise. Does complain of some shortness of breath but denies nausea, vomiting or sweating. Does take aspirin but has not taken it this morning yet. Timing/Duration: 1/2 hour Severity/Quality: moderate, other (palpitations) Location: central Radiation: no radiation Prior CP/Workup: cardiac cath, echocardiography, stress test Modifying Factors: worse with coughing, worse with exercise, improves with rest ASA po METAL TREATER: No NTG SL METAL TREATER: No Associated Symptoms: No abdominal pain, No back pain, No diaphoresis, fatigue, No fever/chills, No nausea/vomiting, shortness of breath, weakness Allergies and Home Medications Allergies Coded Allergies: No Known Drug Allergies (Unverified , 08/20/17) Home Medications Acyclovir 800 Mg Tablet, 800 MG PO 5XD for 7 Days, #35 Ref 0 Prescribed by: MYNOR MURILLO on 10/29/175 Apixaban 5 Mg Tablet, 5 MG PO BID, #60 Ref 0 Prescribed by: DENISE CRAWFORD on 10/27/17 1234 Aspirin 81 Mg Tablet.dr, 81 MG PO DAILY, (Reported) Diltiazem HCl 240 Mg Cap.er.24h, 240 MG PO DAILY, #30 Ref 0 Prescribed by: DENISE CRAWFORD on 10/27/17 1234 Gabapentin 100 Mg Capsule, 200 MG PO QID PRN for PAIN-MODERATE, #100 Ref 0 Prescribed by: MYNOR MURILLO on 10/29/17 2215 Ondansetron 4 Mg Tab.rapdis, 4 MG PO Q6H PRN for NAUSEA/VOMITING, #8 Ref 0 Prescribed by: MYNOR MURILLO on 10/29/17 2215 Oxycodone HCl/Acetaminophen 1 Each Tablet, 1 EACH PO Q4H PRN for PAIN-SEVERE, # 10 Prescribed by: TORI SEGURA on 10/04/174 Oxycodone HCl/Acetaminophen 1 Each Tablet, 1-2 EACH PO Q4H PRN for BREAKTHROUGH PAIN, #30 Ref 0 Prescribed by: MYNOR MURILLO on 10/29/175 Pantoprazole Sodium 40 Mg Tablet.dr, 40 MG PO DAILY, (Reported) Prednisone 20 Mg Tab, 40 MG PO DAILY for 5 Days, #10 Ref 0 Prescribed by: MYNOR MURILLO on 10/29/175 Review of Systems Constitutional: see HPI, No chills, No fever EENTM: Nose Congestion, No Throat Pain Respiratory: Cough, Shortness of Air, Denies Wheezing Cardiovascular: Denies Chest Pain, Denies Edema, Palpitations Gastrointestinal: Denies Abdominal Pain, Denies Nausea, Denies Vomiting Genitourinary: No Symptoms Reported Musculoskeletal: no symptoms reported, No back pain, No muscle pain Skin: no symptoms reported Psychiatric/Neurological: No Symptoms Reported All Other Systems Reviewed Negative Unless Noted: Yes Past Rvblcud-Xpvuev-Ltnykk Hx Patient Social History Alcohol Use: Denies Use Recreational Drug Use: No Smoking Status: Current Everyday Smoker Type Used: Cigarettes 2nd Hand Smoke Exposure: Yes Recent Hopitalizations: Yes (A-FIB) Immunizations Up To Date Tetanus Booster (TDap): Unknown Seasonal Allergies Seasonal Allergies: No Surgeries History of Surgeries: Yes (CARDIAC CATH--STENTS X 3) Surgeries: Cardiac, Coronary Stent Respiratory History of Respiratory Disorde: Yes Respiratory Disorders: COPD Currently Using CPAP: No Currently Using BIPAP: No Cardiovascular History of Cardiac Disorders: Yes (STENTS) Cardiac Disorders: Coronary Artery Disease, Heart Attack, High Cholesterol, Hypertension Neurological History of Neurological Disord: No Reproductive System Hx Reproductive Disorders: No Sexually Transmitted Disease: No Genitourinary History of Genitourinary Disor: No Gastrointestinal History of Gastrointestinal Di: Yes Gastrointestinal Disorders: Gastroesophageal Reflux, Ulcer Musculoskeletal History of Musculoskeletal Dis: Yes (SHOULDER, ELBOW, HAND PAIN, PAIN FROM [place] SPOTTED FEVER ) Musculoskeletal Disorders: Arthritis Endocrine History of Endocrine Disorders: No HEENT History of HEENT Disorders: No Cancer History of Cancer: No Psychosocial History of Psychiatric Problem: No Integumentary History of Skin or Integumenta: No Blood Transfusions History of Blood Disorders: No Adverse Reaction to a Blood Tr: No Reviewed Nursing Assessment Reviewed/Agree w Nursing PMH: Yes Family Medical History Significant Family History: No Pertinent Family Hx, Diabetes, Hypertension Family Medial History: Cardiovascular disease Cataracts Diabetes mellitus Glaucoma Hypertension Myocardial infarction Respiratory disorder Thyroid disease Visual disorder No Family History of: AIDS Abdominal aortic aneurysm Butler's disease Alcoholism Alzheimer's disease Aphasia Arthritis Asthma Cancer of mouth Colon cancer Completed stroke Congenital disease Congenital heart disease Coronary thrombosis Cystic fibrosis Deafness or hearing loss Dementia Drug abuse Dysphasia Fibrocystic disease of breast Gastroenteritis Headache disorder Hypercholesterolemia Infertility Kidney disease Neoplasm Not obtainable due to adoption Osteoporosis Parkinson's disease Prostate cancer Psychosocial problem Seizure disorder Severe allergy Tuberculosis Physical Exam Vital Signs Vital Signs - First Documented 12/22/17 12/22/17 08:00 08:01 Temp 97.8 Pulse 96 Resp 22 B/P (MAP) 123/76 (92) Pulse Ox 97 O2 Delivery Nasal Cannula O2 Flow Rate 2.00 Capillary Refill : General Appearance: No Apparent Distress, WD/WN HEENT: PERRL/EOMI, Pharynx Normal Neck: Non Tender, Supple Respiratory: No Respiratory Distress, Wheezing (a few scattered), Other ( course sounding cough) Cardiovascular: Regular Rate, Rhythm, No Murmur, Other (noted intermittent supraventricular tachycardia on monitor that is not sustained but does last several seconds when it does occur. Rate was in the upper 180s when this occurs.) Gastrointestinal: Non Tender, Soft Extremity: Normal Inspection, Normal Range of Motion, Non Tender, No Calf Tenderness Neurologic/Psychiatric: Alert, Oriented x3, No Motor/Sensory Deficits Skin: Normal Color, Warm/Dry Progress/Results/Core Measures Results/Orders Lab Results Laboratory Tests Test 12/22/17 08:00 Range/Units White Blood Count 16.8 H 4.3-11.0 10^3/uL Red Blood Count 4.68 4.35-5.85 10^6/uL Hemoglobin 13.2 L 13.3-17.7 G/DL Hematocrit 39 L 40-54 % Mean Corpuscular Volume 83 80-99 FL Mean Corpuscular Hemoglobin 28 25-34 PG Mean Corpuscular Hemoglobin Concent 34 32-36 G/DL Red Cell Distribution Width 16.3 H 10.0-14.5 % Platelet Count 774 H 130-400 10^3/uL Mean Platelet Volume 8.0 7.4-10.4 FL Neutrophils (%) (Auto) 76 H 42-75 % Lymphocytes (%) (Auto) 18 12-44 % Monocytes (%) (Auto) 6 0-12 % Eosinophils (%) (Auto) 0 0-10 % Basophils (%) (Auto) 0 0-10 % Neutrophils # (Auto) 12.8 H 1.8-7.8 X 10^3 Lymphocytes # (Auto) 3.0 1.0-4.0 X 10^3 Monocytes # (Auto) 0.9 0.0-1.0 X 10^3 Eosinophils # (Auto) 0.1 0.0-0.3 10^3/uL Basophils # (Auto) 0.1 0.0-0.1 10^3/uL Neutrophils % (Manual) 73 % Lymphocytes % (Manual) 20 % Monocytes % (Manual) 2 % Eosinophils % (Manual) 0 % Basophils % (Manual) 0 % Band Neutrophils 5 % Anisocytosis SLIGHT Elliptocytes SLIGHT Prothrombin Time 13.6 12.2-14.7 SEC INR Comment 1.0 0.8-1.4 Activated Partial Thromboplast Time 30 24-35 SEC D-Dimer 1.64 H 0.00-0.49 UG/ML Sodium Level 138 135-145 MMOL/L Potassium Level 3.4 L 3.6-5.0 MMOL/L Chloride Level 101 98-107 MMOL/L Carbon Dioxide Level 22 21-32 MMOL/L Anion Gap 15 H 5-14 MMOL/L Blood Urea Nitrogen 21 H 7-18 MG/DL Creatinine 1.04 0.60-1.30 MG/DL Estimat Glomerular Filtration Rate > 60 BUN/Creatinine Ratio 20 Glucose Level 138 H 70-105 MG/DL Calcium Level 9.5 8.5-10.1 MG/DL Magnesium Level 1.9 1.8-2.4 MG/DL Total Bilirubin 0.4 0.1-1.0 MG/DL Aspartate Amino Transf (AST/SGOT) 10 5-34 U/L Alanine Aminotransferase (ALT/SGPT) 17 0-55 U/L Alkaline Phosphatase 114 40-136 U/L Myoglobin 58.0 10.0-92.0 NG/ML Troponin I < 0.30 <0.30 NG/ML Total Protein 7.4 6.4-8.2 GM/DL Albumin 3.8 3.2-4.5 GM/DL Thyroid Stimulating Hormone (TSH) 3.05 0.35-4.94 UIU/ML My Orders Orders - GAGE,CEE D MD Cbc With Automated Diff (12/22/17 07:58) Magnesium (12/22/17 07:58) Chest 1 View, Ap/Pa Only (12/22/17 07:58) Ekg Tracing (12/22/17 07:58) Cardiac Profile 1 (12/22/17 07:58) Comprehensive Metabolic Panel (12/22/17 07:58) Myoglobin Serum (12/22/17 07:58) Protime With Inr (12/22/17 07:58) Partial Thromboplastin Time (12/22/17 07:58) O2 (12/22/17 07:58) Monitor-Rhythm Ecg Trace Only (12/22/17 07:58) Lipid Panel (12/23/17 06:00) Aspirin Chewable Tablet (Baby Aspirin Ch (12/22/17 08:00) Saline Lock/Iv-Start (12/22/17 07:58) Fibrin Degradation Products (12/22/17 07:58) Ns Iv 1000 Ml (Sodium Chloride 0.9%) (12/22/17 08:01) Thyroid Stimulating Hormone (12/22/17 08:01) Metoprolol Tartrate Injection (Lopressor (12/22/17 08:30) Diltiazem Cd 24 Hr Capsule (Cardizem Cd (12/22/17 08:30) Metoprolol Tartrate Injection (Lopressor (12/22/17 08:16) Diltiazem Cd 24 Hr Capsule (Cardizem Cd (12/22/17 08:30) Manual Differential (12/22/17 08:00) Albuterol/Ipra Inhalation Soln (Duoneb I (12/22/17 09:00) Svn Sm Volume Nebulizer Rt-Rfs (12/22/17 08:55) Medications Given in ED Current Medications Medications Dose Ordered Sig/Keegan Route Start Time Stop Time Status Last Admin Dose Admin Albuterol/ Ipratropium 3 ml ONCE ONCE INH 12/22/17 09:00 12/22/17 09:01 DC 12/22/17 09:10 3 ML Aspirin 324 mg ONCE ONCE PO 12/22/17 08:00 12/22/17 08:01 DC 12/22/17 08:08 324 MG Metoprolol Tartrate 5 mg ONCE ONCE IV 12/22/17 08:30 12/22/17 08:31 DC 12/22/17 08:21 5 MG Sodium Chloride 1,000 ml @ 0 mls/hr Q0M ONCE IV 12/22/17 08:01 12/22/17 08:02 DC 12/22/17 08:09 1,000 MLS/HR Vital Signs/I&O Vital Sign - Last 12Hours 12/22/17 12/22/17 12/22/17 12/22/17 08:00 08:01 08:19 09:10 Temp 97.8 Pulse 96 Resp 22 B/P (MAP) 123/76 (92) Pulse Ox 97 97 96 O2 Delivery Nasal Cannula Nasal Cannula Nasal Cannula Room Air O2 Flow Rate 2.00 2.00 2.0 Progress Note : Progress Note Seen and evaluated. IV, labs, EKG and chest x-ray ordered. ASA 324 mg by mouth ordered. Normal saline 1 L bolus. Monitor patient. Lopressor 5 mg IV for intermittent supraventricular tachycardia. Also given an additional dose of Cardizem CD 120 mg by mouth. He reports taking his Cardizem CD 240 mg by mouth this morning prior to arrival. I did discuss the case with Dr. Molina at 08 and he agrees with medication adjustment currently. Patient is on apixaban. 0852: Patient's d-dimer is elevated but is chronically elevated. He is on appropriate dosing of apixaban. Had CT angiogram of the chest on last visit I do not believe this is indicated on this visit given that he is on appropriate medications and he is chronically high. Heart rate now 66 with O2 sat 99 percent on 2 L. we will change down to room air. Ashleigh gordillo ordered. Monitor patient. 1005: I have discussed the case with Dr. Molina. Patient's heart rate is now 77 and a blood pressure 134/76 and O2 saturations 93-96 percent on room air. Much improved after meds. We will initiate metoprolol 25 mg twice a day and he will follow up with Dr. Molina on . Patient to call the office for appointment. Discharged home with return precautions. Patient verbalize understanding instructions and agreement with plan ECG Initial ECG Impression Date: Dec 22, 2017 Initial ECG Impression Time: 07:55 Initial ECG Rate: 96 Initial ECG Rhythm: S.Tach Comment Sinus tachycardia with occasional PACs. No evidence of ST elevation NM. Similar to previous of 10/29/17. Normal axis. Interpreted by me. Diagnostic Imaging Diagonstic Imaging: Xray Plain Films/CT/US/NM/MRI: chest Comments [facility] [place], [place] NAME: FE CONNOR [facility] REC#: [id number] PT STATUS: REG ER : 1955 PHYSICIAN: CEE ALMONTE MD ADMIT DATE: 12/22/17/ER Draft Date of Exam:12/22/17 CHEST 1 VIEW, AP/PA ONLY PATIENT HISTORY: Atrial fibrillation. TECHNIQUE: Single frontal view of the chest COMPARISON: 10/27/2017 FINDINGS: Lung volumes are large. There are linear opacities in the lung bases, likely scarring. No new consolidation is seen. The cardiac silhouette is normal in size. No pleural effusion or pneumothorax is seen, although the left costophrenic angle is incompletely included. There is biapical pleural scarring. No acute osseous abnormality is seen. IMPRESSION: 1. No acute pulmonary abnormality seen. 2. Radiographic findings consistent with chronic obstructive disease. Dictated on workstation # [id number] Dict: 12/22/17 0830 Trans: 12/22/17 0839 [facility] [id number] Interpreted by: PEYTON FERGUSON MD Electronically signed by: Reviewed: Reviewed by Me Departure Impression Impression: Primary Impression: Paroxysmal supraventricular tachycardia Disposition: 01 HOME, SELF-CARE Condition: Improved Departure-Patient Inst. Decision time for Depature: 10:09 Referrals: GERHARD SIU DO (PCP) Primary Care Physician JORGE JACKSON (Family) Primary Care Physician DANNY MOLINA MD Patient Instructions: Supraventricular Tachycardia (SVT) Add. Discharge Instructions: All discharge instructions reviewed with patient and/or family. Voiced understanding. Take medications as directed. Follow-up with Dr. Molina on . Call his office today for appointment on . Return for worse pain, fever, vomiting, weakness, breathing problems or other concerns as needed. Continue other medications as directed. You may have to use your inhaler related to coughing and wheezing as you may have more this after quitting smoking. You may talk with your doctor about this as well. Scripts Metoprolol Tartrate (Metoprolol Tartrate) 25 Mg Tablet 25 MG PO BID, #60 TAB 0 Refills Prov: CEE ALMONTE MD 12/22/17 Copy Copies To 1: DANNY MOLINA MD Copies To 2: GERHARD SIU TIMOTHY D MD Dec 22, 2017 08:14
[2017-12-22] MEDS ORDERED: meTOprolol 5 MG/5 ML (LOPRESSOR) VIAL ONE (08:16)
[2017-12-22 08:25] LABS: PROTHROMBIN TIME PATIENT 13.6 SEC (12.2-14.7)
[2017-12-22] MEDS ORDERED: meTOprolol 5 MG/5 ML (LOPRESSOR) VIAL IV ONE (08:30)
[2017-12-22] MEDS ORDERED: DILTIAZEM 120 MG (CARDIZEM CD) CAP PO SCH (08:30)
[2017-12-22] MEDS ORDERED: DILTIAZEM 240 MG (CARDIZEM CD) CAP PO ONE (08:30)
[2017-12-22 08:36] LABS: ALANINE AMINOTRANSFERASE 17 U/L (0-55); ALBUMIN 3.8 GM/DL (3.2-4.5); ALKALINE PHOSPHATASE 114 U/L (40-136); BILIRUBIN,TOTAL 0.4 MG/DL (0.1-1.0); BUN/CREATININE RATIO 20; CALCIUM 9.5 MG/DL (8.5-10.1); CARBON DIOXIDE 22 MMOL/L (21-32); CHLORIDE 101 MMOL/L (98-107); CREATININE SERUM 1.04 MG/DL (0.60-1.30); GFR ESTIMATED > 60; GLUCOSE 138 MG/DL (70-105); MAGNESIUM 1.9 MG/DL (1.8-2.4); POTASSIUM 3.4 MMOL/L (3.6-5.0); SODIUM 138 MMOL/L (135-145); TOTAL PROTEIN 7.4 GM/DL (6.4-8.2)
[2017-12-22 08:40] LABS: ANISOCYTOSIS SLIGHT; BAND NEUTROPHILS 5 %; BASOPHILS % (MANUAL) 0 %; ELLIPT/OVALOCYTES SLIGHT; EOSINOPHILS % (MANUAL) 0 %; LYMPHOCYTES % (MANUAL) 20 %; MONOCYTES % (MANUAL) 2 %; NEUTROPHILS % (MANUAL) 73 %
--- NOTE | 2017-12-22 08:40 | Diagnostic Imaging Report ---
PATIENT HISTORY: Atrial fibrillation. TECHNIQUE: Single frontal view of the chest COMPARISON: 10/27/2017 FINDINGS: Lung volumes are large. There are linear opacities in the lung bases, likely scarring. No new consolidation is seen. The cardiac silhouette is normal in size. No pleural effusion or pneumothorax is seen, although the left costophrenic angle is incompletely included. There is biapical pleural scarring. No acute osseous abnormality is seen. IMPRESSION: 1. No acute pulmonary abnormality seen. 2. Radiographic findings consistent with chronic obstructive disease. Dictated by: Dictated on workstation # [id number]
[2017-12-22] MEDS ORDERED: RT-ALBUTEROL/IPRATROPIUM 3 ML (DUONEB) VIAL INH ONE (09:00)
[2017-12-22] MEDS ORDERED: METO-333 PO (10:11)
[2017-12-22 10:19] VITALS: BP 132/81
== END 2017-12-22 10:19 | disposition home or self-care (01) ==
LOC: EDUNIT# 07:55 → ER 07:56
DX: I47.1 Supraventricular tachycardia (principal); J44.9 Chronic obstructive pulmonary disease, unspecified; I48.91 Unspecified atrial fibrillation; I25.10 Atherosclerotic heart disease of native coronary artery without angina pectoris; I25.2 Old myocardial infarction; E78.00 Pure hypercholesterolemia, unspecified; I10 Essential (primary) hypertension; K21.9 Gastro-esophageal reflux disease without esophagitis; F17.210 Nicotine dependence, cigarettes, uncomplicated; Z95.5 Presence of coronary angioplasty implant and graft; Z87.19 Personal history of other diseases of the digestive system; Z82.49 Family history of ischemic heart disease and other diseases of the circulatory system; Z79.01 Long term (current) use of anticoagulants; Z79.82 Long term (current) use of aspirin
CPT/HCPCS: 36415; 71045; 80053; 83735; 83874; 84443; 84484; 85007; 85025; 85027; 85379; 85610; 85730; 93005; 93041; 94640

== ENCOUNTER 2018-08-04 14:49 | Inpatient (IN) | payer OTHER ==
[~2018-08-04] VITALS: Ht 185.4 cm; Wt 74.8 kg
[~2018-08-04 14:49] MED LIST changes: +METO-333 PO; -OXYC-197 PO; -OXYC-202 PO; +OXYC1TAB12 PO; +OXYC1TAB87 PO
--- OUTSIDE RECORDS SUMMARY | 2018-08-04 15:29 | XMS REPORT ---
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 Name Role Phone JORGE JACKSON Unavailable PROBLEMS Type Condition ICD9-CM Code BRZ89-BB Code Onset Dates Condition Status SNOMED Code Problem Arthritis M19.90 Active 0914652 Problem Chronic gastric ulcer without hemorrhage and without perforation K25.7 Active 47874296 Problem Neuropathy G62.9 Active 067513487 Problem 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 M05.741 Active 090189315 Problem Rheumatoid arthritis flare M06.9 Active 776943973 Problem Chronic atrial fibrillation I48.2 Active 423244371 Problem Panlobular emphysema J43.1 Active 3070272 Problem Rheumatoid arthritis of left hand without organ or system involvement with positive rheumatoid factor M05.742 Active 173139761 Problem Primary osteoarthritis involving multiple joints M15.0 Active 611860757 Problem History of nicotine dependence Z87.891 Active 14097174 Problem History of OK (myocardial infarction) I25.2 Active 738407673 Problem GERD (gastroesophageal reflux disease) K21.9 Active 261177429 Problem Hyperlipidemia E78.5 Active 87996625 Problem Hypertension I10 Active 70296704 Problem Coronary artery disease I25.10 Active 77999090 ALLERGIES No Information ENCOUNTERS Encounter Location Date Diagnosis [facility] [id number], [place] [address] Jan, 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 M05.741 [facility] [address], [place] [address] Jan, [facility] [address] [id number], [place] [address] Jan, Rheumatoid arthritis of left hand without organ or system involvement with positive rheumatoid factor M05.742 [id number] [place] [address] 15 Dec, 2017 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 M05.741 [facility] [id number] [place] [address] 09 Dec, 2017 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 M05.741 and Rheumatoid arthritis of left hand without organ or system involvement with positive rheumatoid factor M05.742 [address] [place] [address] [place] [address]04- [address] Dec, Panlobular emphysema J43.1 [place] [id number] [place] [address]98[address] 13 Dec, 2017 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 M05.741 ; Rheumatoid arthritis of left hand without organ or system involvement with positive rheumatoid factor M05.742 and Rheumatoid arthritis flare M06.9 [place] [address] [place] [address]12- [address] Dec, Primary osteoarthritis involving multiple joints M15.0 and Chronic atrial fibrillation I48.2 [place] [id number] [place] [address] 26971- 4878 Nov, Arthritis M19.90 and Myalgia M79.1 [facility] [address] [place] [phone] Nov, [facility] [address] [place] [address] Nov, [place] [id number] [place] [address]171[address] Oct, Panlobular emphysema J43.1 and Chronic atrial fibrillation I48.2 [place] [address] [place] [address]07- 8314 Sep, Arthritis M19.90 and Chronic gastric ulcer without hemorrhage and without perforation K25.7 [facility] [address], [place] [address] Aug, [facility] [id number] [place] [address] Aug, [facility] [id number] [place] [address] 56969- [address] Aug, [facility] [id number] [place] [address]234- [address] Jul, Neuropathy G62.9 and Arthritis M19.90 [facility] [id number] [place] [address] 71368- 6[address] Jun, Arthritis M19.90 [facility] [id number] [place] [phone] [phone] May, Pain in joints M25.50 [facility] [id number] [place] [phone] Apr, Other malaise R53.81 [facility] [id number] [place] [address]135[address] Sep, [place] [id number] [place] [address] 53551- 1859 Sep, Routine adult health maintenance Z00.00 ; Hypertension I10 ; Hyperlipidemia E78.5 ; History of OK (myocardial infarction) I25.2 and Bronchitis J40 [facility] [address] [place] [address]59- 2021 Sep, [facility] [id number] [place] [address] 47198- 4[address] Jan, [place] [id number] [place] [address] 53232[address] Jan, [facility] [id number] [place] [address] 25380- 5944 Aug, IMMUNIZATIONS No Known Immunizations SOCIAL HISTORY Never Assessed REASON FOR VISIT Enbrel note PLAN OF CARE VITAL SIGNS MEDICATIONS Medication Instructions Dosage Frequency Start Date End Date Duration Status Enbrel 25 MG/0.5ML Subcutaneous once weekly 1 ml Dec, 90 days Active RESULTS No Results PROCEDURES No Known procedures INSTRUCTIONS MEDICATIONS ADMINISTERED No Known Medications MEDICAL (GENERAL) HISTORY Type Description Date Medical History CAD--3 stents placed 08-30-15 Medical History hypertension Medical History NSTEMI on 08-30-15 Medical History chest pain/unstable angina Medical History hyperlipidemia Medical History esophageal reflux Medical History Atrial fibrillation Medical History [place] Spotted Tick Fever Surgical History heart cath-3 stents placed in RAC (total occlusion) 08-30-15 Surgical History repeat heart cath--stents patent 08-31-15 Hospitalization History Heart cath with 3 stents placed 08/2015 Hospitalization History cellulitis 07/2017 Hospitalization History Afib 10/26/17
--- OUTSIDE RECORDS SUMMARY | 2018-08-04 15:29 | XMS REPORT ---
Author Author JORGE JACKSON Organization [facility] Address [address] [place] [address] Care Team Providers Care Securities Counselor Name Role Phone JORGE JACKSON Unavailable PROBLEMS Type Condition ICD9-CM Code CKS73-NM Code Onset Dates Condition Status SNOMED Code Problem Arthritis M19.90 Active 6364559 Problem Chronic gastric ulcer without hemorrhage and without perforation K25.7 Active 00181823 Problem Neuropathy G62.9 Active 695918027 Problem 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 M05.741 Active 182047573 Problem Rheumatoid arthritis flare M06.9 Active 916432605 Problem Chronic atrial fibrillation I48.2 Active 647505095 Problem Panlobular emphysema J43.1 Active 6891107 Problem Rheumatoid arthritis of left hand without organ or system involvement with positive rheumatoid factor M05.742 Active 824268148 Problem Primary osteoarthritis involving multiple joints M15.0 Active 039993350 Problem History of nicotine dependence Z87.891 Active 91010022 Problem History of [place] (myocardial infarction) I25.2 Active 251974940 Problem GERD (gastroesophageal reflux disease) K21.9 Active 596420918 Problem Hyperlipidemia E78.5 Active 10097445 Problem Hypertension I10 Active 94974146 Problem Coronary artery disease I25.10 Active 67835019 ALLERGIES No Information ENCOUNTERS Encounter Location Date Diagnosis [facility] [id number], [place] [address] Jan, 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 M05.741 [facility] [address], [place] [address] Jan, [facility] [id number], [place] [address] Jan, Rheumatoid arthritis of left hand without organ or system involvement with positive rheumatoid factor M05.742 [place] [address] [place] [address] 27487- 4555 15 Dec, 2017 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 M05.741 [facility] [address] [place] [address] 91340- 0714 09 Dec, 2017 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 M05.741 and Rheumatoid arthritis of left hand without organ or system involvement with positive rheumatoid factor M05.742 [place] [address] [place] [address] 71408- 2629 Dec, Panlobular emphysema J43.1 [place] [id number] [place] [address] 25236- 0459 13 Dec, 2017 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 M05.741 ; Rheumatoid arthritis of left hand without organ or system involvement with positive rheumatoid factor M05.742 and Rheumatoid arthritis flare M06.9 [place] [address] [place] [address] 00546- 0019 Dec, Primary osteoarthritis involving multiple joints M15.0 and Chronic atrial fibrillation I48.2 [place] [address] [place] [address] 25141- 9392 Nov, Arthritis M19.90 and Myalgia M79.1 [facility] [address] [place] [address] 82144 -1523 Nov, [facility] [address] [place] [address] 58145- 6916 Nov, [place] [id number] [place] [address] 62757- 5906 Oct, Panlobular emphysema J43.1 and Chronic atrial fibrillation I48.2 [place] [address] [place] [address] 63846- 6564 Sep, Arthritis M19.90 and Chronic gastric ulcer without hemorrhage and without perforation K25.7 [facility] [address], [place] [address] Aug, [facility] [id number] [place] [address] 69645- 6611 Aug, [facility] [id number] [place] [address] 86489- 6741 Aug, [facility] [id number] [place] [address] 23711- 1237 Jul, Neuropathy G62.9 and Arthritis M19.90 [facility] [id number] [place] [address] 41360- 3140 Jun, Arthritis M19.90 [facility] [id number] [place] [address] 72897 -3817 May, Pain in joints M25.50 [facility] [id number] [place] [address] 70678 -5983 Apr, Other malaise R53.81 [facility] [id number] [place] [address] 88657- 8197 Sep, [place] [id number] [place] [address] 33979- 2438 Sep, Routine adult health maintenance Z00.00 ; Hypertension I10 ; Hyperlipidemia E78.5 ; History of [place] (myocardial infarction) I25.2 and Bronchitis J40 [place] [address], [place] [address] Sep, [facility] [id number] [place] [address] 47798- 6367 Jan, [place] [id number] [place] [address] 12653- 3753 Jan, [facility] [address] [place] [address] 49937- 2353 Aug, IMMUNIZATIONS No Known Immunizations SOCIAL HISTORY Never Assessed REASON FOR VISIT [place] Spotted Fever PLAN OF CARE VITAL SIGNS MEDICATIONS Medication Instructions Dosage Frequency Start Date End Date Duration Status Doxycycline Hyclate 100 mg Orally every 12 hrs 1 capsule 12h 24 Aug, 2017 3 Sep, 2017 10 days Active RESULTS No Results PROCEDURES No Known procedures INSTRUCTIONS MEDICATIONS ADMINISTERED No Known Medications MEDICAL (GENERAL) HISTORY Type Description Date Medical History CAD--3 stents placed 08-30-15 Medical History hypertension Medical History NSTEMI on 08-30-15 Medical History chest pain/unstable angina Medical History hyperlipidemia Medical History esophageal reflux Medical History Atrial fibrillation Medical History [place] Spotted Tick Fever Surgical History heart cath-3 stents placed in RAC (total occlusion) 08-30-15 Surgical History repeat heart cath--stents patent 08-31-15 Hospitalization History Heart cath with 3 stents placed 08/2015 Hospitalization History cellulitis 07/2017 Hospitalization History Afib 10/26/17
--- OUTSIDE RECORDS SUMMARY | 2018-08-04 15:29 | XMS REPORT ---
Author Author JORGE JACKSON Organization [facility] Address [address] [place] [address] Care Team Providers Care Furniture Designer Name Role Phone JORGE JACKSON Unavailable PROBLEMS Type Condition ICD9-CM Code GYS83-XV Code Onset Dates Condition Status SNOMED Code Problem Arthritis M19.90 Active 2551331 Problem Chronic gastric ulcer without hemorrhage and without perforation K25.7 Active 67757718 Problem Neuropathy G62.9 Active 031986071 Problem 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 M05.741 Active 407691071 Problem Rheumatoid arthritis flare M06.9 Active 112002069 Problem Chronic atrial fibrillation I48.2 Active 765117268 Problem Panlobular emphysema J43.1 Active 4703495 Problem Rheumatoid arthritis of left hand without organ or system involvement with positive rheumatoid factor M05.742 Active 339934592 Problem Primary osteoarthritis involving multiple joints M15.0 Active 443482324 Problem History of nicotine dependence Z87.891 Active 22498773 Problem History of [place] (myocardial infarction) I25.2 Active 925544194 Problem GERD (gastroesophageal reflux disease) K21.9 Active 782652590 Problem Hyperlipidemia E78.5 Active 60362122 Problem Hypertension I10 Active 27477298 Problem Coronary artery disease I25.10 Active 35459601 ALLERGIES No Information ENCOUNTERS Encounter Location Date Diagnosis [facility] [id number] [address] Jan, 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 M05.741 [facility] [address], [place] [address] Jan, [facility] [id number] [address] Jan, Rheumatoid arthritis of left hand without organ or system involvement with positive rheumatoid factor M05.742 [place] [address] [place] [address] 30239- 2957 15 Dec, 2017 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 M05.741 [facility] [address] [place] [address] 65504- 0072 09 Dec, 2017 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 M05.741 and Rheumatoid arthritis of left hand without organ or system involvement with positive rheumatoid factor M05.742 [place] [address] [place] [address] 32746- 9008 Dec, Panlobular emphysema J43.1 [place] [id number] [place] [address] 16338- 1977 13 Dec, 2017 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 M05.741 ; Rheumatoid arthritis of left hand without organ or system involvement with positive rheumatoid factor M05.742 and Rheumatoid arthritis flare M06.9 [place] [address] [place] [address] 94771- 7338 Dec, Primary osteoarthritis involving multiple joints M15.0 and Chronic atrial fibrillation I48.2 [place] [address] [place] [address] 65798- 0510 Nov, Arthritis M19.90 and Myalgia M79.1 [facility] [address] [place] [address] 80945 -3598 Nov, [facility] [address] [place] [address] 50832- 2138 Nov, [place] [id number] [place] [address] 82095- 2147 Oct, Panlobular emphysema J43.1 and Chronic atrial fibrillation I48.2 [place] [address] [place] [address] 42523- 0857 Sep, Arthritis M19.90 and Chronic gastric ulcer without hemorrhage and without perforation K25.7 [facility] [address], [place] [address] 4089 Aug, [facility] [id number] [place] [address] 51769- 1682 Aug, [facility] [id number] [place] [address] 56256- 3719 Aug, [facility] [id number] [place] [address] 84741- 7174 Jul, Neuropathy G62.9 and Arthritis M19.90 [facility] [id number] [place] [address] 52506- 0227 Jun, Arthritis M19.90 [facility] [id number] [place] [address] 02098 -6352 May, Pain in joints M25.50 [facility] [id number] [place] [address] 17139 -0949 Apr, Other malaise R53.81 [facility] [id number] [place] [address] 01394- 1633 Sep, [facility] [id number] [place] [address] 44403- 8967 Sep, Routine adult health maintenance Z00.00 ; Hypertension I10 ; Hyperlipidemia E78.5 ; History of [place] (myocardial infarction) I25.2 and Bronchitis J40 [facility] [id number] [place] [address] 88350- 6667 Sep, [facility] [id number] [place] [address] 77934- 5317 Jan, [facility] [id number] [place] [address] 58742- 0170 Jan, [facility] [id number] [place] [address] 58324- 7379 Aug, IMMUNIZATIONS No Known Immunizations SOCIAL HISTORY Never Assessed REASON FOR VISIT med refill PLAN OF CARE VITAL SIGNS MEDICATIONS Medication Instructions Dosage Frequency Start Date End Date Duration Status Enbrel 25 MG/0.5ML Subcutaneous once weekly 1 ml Dec, 30 day( s) Active RESULTS No Results PROCEDURES No Known procedures INSTRUCTIONS MEDICATIONS ADMINISTERED No Known Medications MEDICAL (GENERAL) HISTORY Type Description Date Medical History CAD--3 stents placed 08-30-15 Medical History hypertension Medical History NSTEMI on 08-30-15 Medical History chest pain/unstable angina Medical History hyperlipidemia Medical History esophageal reflux Medical History Atrial fibrillation Medical History [place] Spotted Tick Fever Surgical History heart cath-3 stents placed in RAC (total occlusion) 08-30-15 Surgical History repeat heart cath--stents patent 08-31-15 Hospitalization History Heart cath with 3 stents placed 08/2015 Hospitalization History cellulitis 07/2017 Hospitalization History Afib 10/26/17
--- OUTSIDE RECORDS SUMMARY | 2018-08-04 15:29 | XMS REPORT ---
Author Author JORGE JACKSON Organization [facility] Address [address] [place] [address] Care Team Providers Care Acetylene Cylinder Packing Mixer Name Role Phone JORGE JACKSON Unavailable PROBLEMS Type Condition ICD9-CM Code NUA92-UO Code Onset Dates Condition Status SNOMED Code Problem Arthritis M19.90 Active 2851810 Problem Chronic gastric ulcer without hemorrhage and without perforation K25.7 Active 30912107 Problem Neuropathy G62.9 Active 571608583 Problem 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 M05.741 Active 415722250 Problem Rheumatoid arthritis flare M06.9 Active 784137992 Problem Chronic atrial fibrillation I48.2 Active 585277511 Problem Panlobular emphysema J43.1 Active 3664902 Problem Rheumatoid arthritis of left hand without organ or system involvement with positive rheumatoid factor M05.742 Active 326690258 Problem Primary osteoarthritis involving multiple joints M15.0 Active 998870592 Problem History of nicotine dependence Z87.891 Active 42640683 Problem History of [place] (myocardial infarction) I25.2 Active 395990556 Problem GERD (gastroesophageal reflux disease) K21.9 Active 419226917 Problem Hyperlipidemia E78.5 Active 08108545 Problem Hypertension I10 Active 00409363 Problem Coronary artery disease I25.10 Active 75467555 ALLERGIES No Information ENCOUNTERS Encounter Location Date Diagnosis [facility] [id number], [place] [address] Jan, 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 M05.741 [facility] [address], [place] [address] Jan, [facility] [id number], [place] [address]- 7059 Jan, Rheumatoid arthritis of left hand without organ or system involvement with positive rheumatoid factor M05.742 [place] [address] [place] [address] 90414- 9966 15 Dec, 2017 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 M05.741 [facility] [address] [place] [address] 66359- 4223 09 Dec, 2017 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 M05.741 and Rheumatoid arthritis of left hand without organ or system involvement with positive rheumatoid factor M05.742 [place] [address] [place] [address] 93504- 2304 Dec, Panlobular emphysema J43.1 [place] [id number] [place] [address] 97819- 2543 13 Dec, 2017 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 M05.741 ; Rheumatoid arthritis of left hand without organ or system involvement with positive rheumatoid factor M05.742 and Rheumatoid arthritis flare M06.9 [place] [address] [place] [address] 17288- 9434 Dec, Primary osteoarthritis involving multiple joints M15.0 and Chronic atrial fibrillation I48.2 [place] [address] [place] [address] 22881- 3464 Nov, Arthritis M19.90 and Myalgia M79.1 [facility] [address] [place] [address] 79355 -7981 Nov, [facility] [address] [place] [address] 97349- 1817 Nov, [place] [id number] [place] [address] 57225- 8585 Oct, Panlobular emphysema J43.1 and Chronic atrial fibrillation I48.2 [place] [address] [place] [address] 08926- 5901 Sep, Arthritis M19.90 and Chronic gastric ulcer without hemorrhage and without perforation K25.7 [facility] [address], [place] [address]- 2516 Aug, [facility] [id number] [place] [address] 23495- 4952 Aug, [facility] [id number] [place] [address] 54905- 5947 Aug, [facility] [id number] [place] [address] 05245- 8963 Jul, Neuropathy G62.9 and Arthritis M19.90 [facility] [id number] [place] [address] 48041- 1618 Jun, Arthritis M19.90 [facility] [id number] [place] [address] 52542 -0879 May, Pain in joints M25.50 [facility] [id number] [place] [address] 94434 -3438 Apr, Other malaise R53.81 [facility] [id number] [place] [address] 87962- 4931 Sep, [place] [id number] [place] [address] 16627- 6702 Sep, Routine adult health maintenance Z00.00 ; Hypertension I10 ; Hyperlipidemia E78.5 ; History of [place] (myocardial infarction) I25.2 and Bronchitis J40 [facility] [address] [place] [address] 48559- 7338 Sep, [facility] [id number] [place] [address] 82315- 9934 Jan, [place] [id number] [place] [address] 05438- 0787 Jan, [facility] [address] [place] [address] 93183- 3179 Aug, IMMUNIZATIONS No Known Immunizations SOCIAL HISTORY Never Assessed REASON FOR VISIT enbrel PLAN OF CARE VITAL SIGNS MEDICATIONS Medication Instructions Dosage Frequency Start Date End Date Duration Status Enbrel Mini 50 MG/ML Subcutaneous once weekly 1 ml Jan, 30 day(s) Active RESULTS No Results PROCEDURES No Known procedures INSTRUCTIONS MEDICATIONS ADMINISTERED No Known Medications MEDICAL (GENERAL) HISTORY Type Description Date Medical History CAD--3 stents placed 08-30-15 Medical History hypertension Medical History NSTEMI on 08-30-15 Medical History chest pain/unstable angina Medical History hyperlipidemia Medical History esophageal reflux Medical History Atrial fibrillation Medical History [place] Spotted Tick Fever Surgical History heart cath-3 stents placed in RAC (total occlusion) 08-30-15 Surgical History repeat heart cath--stents patent 08-31-15 Hospitalization History Heart cath with 3 stents placed 08/2015 Hospitalization History cellulitis 07/2017 Hospitalization History Afib 10/26/17
--- OUTSIDE RECORDS SUMMARY | 2018-08-04 15:29 | XMS REPORT ---
Author Author JORGE JACKSON Organization [facility] [place] Address [address] [place] [address] Care Team Providers Care Syrup Mixer Name Role Phone JORGE JACKSON Unavailable PROBLEMS Type Condition ICD9-CM Code ROO75-WV Code Onset Dates Condition Status SNOMED Code Problem Arthritis M19.90 Active 4775155 Problem Chronic gastric ulcer without hemorrhage and without perforation K25.7 Active 28244648 Problem Neuropathy G62.9 Active 195998181 Problem 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 M05.741 Active 974069523 Problem Rheumatoid arthritis flare M06.9 Active 486895156 Problem Chronic atrial fibrillation I48.2 Active 699281457 Problem Panlobular emphysema J43.1 Active 4608346 Problem Rheumatoid arthritis of left hand without organ or system involvement with positive rheumatoid factor M05.742 Active 158104911 Problem Primary osteoarthritis involving multiple joints M15.0 Active 123636129 Problem History of nicotine dependence Z87.891 Active 00397461 Problem History of ID (myocardial infarction) I25.2 Active 967870746 Problem GERD (gastroesophageal reflux disease) K21.9 Active 086711708 Problem Hyperlipidemia E78.5 Active 60673604 Problem Hypertension I10 Active 54451883 Problem Coronary artery disease I25.10 Active 72822864 ALLERGIES No Information ENCOUNTERS Encounter Location Date Diagnosis [facility] [place] [id number], [place] [address] Jan, 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 M05.741 [facility] [place] [address] [address] Jan, [facility] [place] [id number] [address] Jan, Rheumatoid arthritis of left hand without organ or system involvement with positive rheumatoid factor M05.742 [address] [address] [place] [address] 47640- 9823 15 Dec, 2017 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 M05.741 [facility] [place] [address] [place] [address] 90575- 7210 09 Dec, 2017 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 M05.741 and Rheumatoid arthritis of left hand without organ or system involvement with positive rheumatoid factor M05.742 [place] [address] [address] [place] [address] 14345- 4227 Dec, Panlobular emphysema J43.1 [place] [id number] [place] [address] 78106- 9082 13 Dec, 2017 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 M05.741 ; Rheumatoid arthritis of left hand without organ or system involvement with positive rheumatoid factor M05.742 and Rheumatoid arthritis flare M06.9 [place] [address] [place] [address] 24026- 6836 Dec, Primary osteoarthritis involving multiple joints M15.0 and Chronic atrial fibrillation I48.2 [place] [address] [place] [address] 61536- 1604 Nov, Arthritis M19.90 and Myalgia M79.1 [facility]ALK IN [facility] [address] [place] [address] 48205 -3659 Nov, [facility] [place] [address] [place] [address] 16116- 2855 Nov, [place] [id number] [place] [address] 26110- 9723 Oct, Panlobular emphysema J43.1 and Chronic atrial fibrillation I48.2 [place] [address] [place] [address] 74491- 2774 Sep, Arthritis M19.90 and Chronic gastric ulcer without hemorrhage and without perforation K25.7 [facility] [place] [address] [address] Aug, [facility] [place] [id number] [place] [address] 67244- 0356 Aug, [facility] [place] [id number] [place] [address] 01858- 6556 Aug, [facility] [place] [id number] [place] [address] 10627- 5661 Jul, Neuropathy G62.9 and Arthritis M19.90 [facility] [place] [id number] [place] [address] 62146- 9132 Jun, Arthritis M19.90 [facility] [id number] [place] [address] 99560 -0405 May, Pain in joints M25.50 [facility] [id number] [place] [address] 06447 -1323 Apr, Other malaise R53.81 [facility] [place] [id number] [place] [address] 24464- 6403 Sep, [place] [id number] [place] [address] 20178- 9398 Sep, Routine adult health maintenance Z00.00 ; Hypertension I10 ; Hyperlipidemia E78.5 ; History of ID (myocardial infarction) I25.2 and Bronchitis J40 [place] [id number] [place] [address] 50147- 6036 Sep, [facility] [place] [id number] [place] [address] 16539- 8548 Jan, [place] [id number] [place] [address] 56405- 4722 Jan, [facility] [place] [id number] [place] [address] 36629- 8083 Aug, IMMUNIZATIONS No Known Immunizations SOCIAL HISTORY Never Assessed REASON FOR VISIT medication PLAN OF CARE VITAL SIGNS MEDICATIONS Medication Instructions Dosage Frequency Start Date End Date Duration Status Asmanex HFA 100 MCG/ACT Inhalation Twice a day 2 puffs 12h Dec, 30 days Active RESULTS No Results PROCEDURES No Known procedures INSTRUCTIONS MEDICATIONS ADMINISTERED No Known Medications MEDICAL (GENERAL) HISTORY Type Description Date Medical History CAD--3 stents placed 08-30-15 Medical History hypertension Medical History NSTEMI on 08-30-15 Medical History chest pain/unstable angina Medical History hyperlipidemia Medical History esophageal reflux Medical History Atrial fibrillation Medical History [place] Spotted Tick Fever Surgical History heart cath-3 stents placed in RAC (total occlusion) 08-30-15 Surgical History repeat heart cath--stents patent 08-31-15 Hospitalization History Heart cath with 3 stents placed 08/2015 Hospitalization History cellulitis 07/2017 Hospitalization History Afib 10/26/17
--- OUTSIDE RECORDS SUMMARY | 2018-08-04 15:29 | XMS REPORT ---
Author Author JORGE JACSKON Organization [facility] Address [address] [place] [address] Care Team Providers Care Operations Lieutenant Name Role Phone MANUEL JORGE Unavailable PROBLEMS Type Condition ICD9-CM Code LEE98-QO Code Onset Dates Condition Status SNOMED Code Problem Arthritis M19.90 Active 3683406 Problem Chronic gastric ulcer without hemorrhage and without perforation K25.7 Active 50731668 Problem Neuropathy G62.9 Active 470777901 Problem 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 M05.741 Active 553614586 Problem Rheumatoid arthritis flare M06.9 Active 396040710 Problem Chronic atrial fibrillation I48.2 Active 746069642 Problem Panlobular emphysema J43.1 Active 2233169 Problem Rheumatoid arthritis of left hand without organ or system involvement with positive rheumatoid factor M05.742 Active 784681134 Problem Primary osteoarthritis involving multiple joints M15.0 Active 426977014 Problem History of nicotine dependence Z87.891 Active 47328595 Problem History of MD (myocardial infarction) I25.2 Active 637653330 Problem GERD (gastroesophageal reflux disease) K21.9 Active 776580992 Problem Hyperlipidemia E78.5 Active 50681551 Problem Hypertension I10 Active 80049288 Problem Coronary artery disease I25.10 Active 54155776 ALLERGIES No Known Allergies ENCOUNTERS Encounter Location Date Diagnosis [facility] [id number] [address] Jan, 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 M05.741 [facility] [address] [address] Jan, [facility] [id number] [address] Jan, Rheumatoid arthritis of left hand without organ or system involvement with positive rheumatoid factor M05.742 [facility] [address] [address] 15 Dec, 2017 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 M05.741 [facility] [address] [place] [address] 02704- 7519 09 Dec, 2017 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 M05.741 and Rheumatoid arthritis of left hand without organ or system involvement with positive rheumatoid factor M05.742 [address] [address] [place] [address] 04994- 0930 Dec, Panlobular emphysema J43.1 [place] [id number] [place] [address] 68871- 3174 13 Dec, 2017 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 M05.741 ; Rheumatoid arthritis of left hand without organ or system involvement with positive rheumatoid factor M05.742 and Rheumatoid arthritis flare M06.9 [place] [address] [address] [place] [address] 51367- 3580 Dec, Primary osteoarthritis involving multiple joints M15.0 and Chronic atrial fibrillation I48.2 [place] [address] [place] [address] 90378- 3176 Nov, Arthritis M19.90 and Myalgia M79.1 [facility] WALK IN [facility] [address] [place] [address] 88826 -0122 Nov, [facility] [id number] [place] [address] 99665- 8196 Nov, [place] [id number] [place] [address] 89431- 0750 Oct, Panlobular emphysema J43.1 and Chronic atrial fibrillation I48.2 [place] [address] [place] [address] 14385- 4258 Sep, Arthritis M19.90 and Chronic gastric ulcer without hemorrhage and without perforation K25.7 [facility] [address] [address]- 6[address] Aug, [facility] [id number] [place] [address] 33176- 2421 Aug, [facility] [id number] [place] [address] 75758- 2060 Aug, [facility] [id number] [place] [address] 94865- 8628 Jul, Neuropathy G62.9 and Arthritis M19.90 [facility] [id number] [place] [address] 33761- 6332 Jun, Arthritis M19.90 [facility] [id number] [place] [address] 49638 -6457 May, Pain in joints M25.50 [facility] [id number] [place] [address] 30295 -4913 Apr, Other malaise R53.81 [facility] [id number] [place] [address] 68996- 6870 Sep, [place] [id number] [place] [address] 69508- 6508 Sep, Routine adult health maintenance Z00.00 ; Hypertension I10 ; Hyperlipidemia E78.5 ; History of MD (myocardial infarction) I25.2 and Bronchitis J40 [facility] [id number] [place] [address] 59536- 3379 Sep, [facility] [id number] [place] [address] 84252- 4975 Jan, [facility] [id number] [place] [address] 15587- 4518 Jan, [facility] [id number] [place] [address] 99994- 1046 Aug, IMMUNIZATIONS No Known Immunizations SOCIAL HISTORY Never Assessed REASON FOR VISIT Discuss lab results-Pj RODRIGUEZ PLAN OF CARE VITAL SIGNS Height 71 in 2018-01-08 Weight 159.0 lbs 2018-01-08 Temperature 97.9 degrees Fahrenheit 2018-01-08 Heart Rate 68 bpm 2018-01-08 Respiratory Rate 18 2018-01-08 BMI 22.17 kg/m2 2018-01-08 Blood pressure systolic 122 mmHg 2018-01-08 Blood pressure diastolic 68 mmHg 2018-01-08 MEDICATIONS Medication Instructions Dosage Frequency Start Date End Date Duration Status Arava 20 mg Orally Once a day 1 tablet 24h 13 Dec, 2017 Jan, 30 day(s) Not-Taking Asmanex HFA 100 MCG/ACT Inhalation Twice a day 2 puffs 12h Dec, 30 days Active Diltiazem HCl ER 240 MG Orally Once a day 1 capsule on an empty stomach in the morning 24h Active Chantix 1 MG Orally Twice a day 1 tablet 12h Oct, Apr, 30 day(s) Active Enbrel 25 MG/0.5ML 1 ml Dec, Jan, 30 day(s) Active Eliquis 5 mg Orally 2 times a day 1 tablet 12h Oct, Active Celebrex 200 mg Orally Once a day 1 capsule with food 24h Dec, Apr, 30 day(s) Not-Taking RESULTS No Results PROCEDURES No Known procedures INSTRUCTIONS MEDICATIONS ADMINISTERED No Known Medications MEDICAL (GENERAL) HISTORY Type Description Date Medical History CAD--3 stents placed 08-30-15 Medical History hypertension Medical History NSTEMI on 08-30-15 Medical History chest pain/unstable angina Medical History hyperlipidemia Medical History esophageal reflux Medical History Atrial fibrillation Medical History [place] Spotted Tick Fever Surgical History heart cath-3 stents placed in RAC (total occlusion) 08-30-15 Surgical History repeat heart cath--stents patent 08-31-15 Hospitalization History Heart cath with 3 stents placed 08/2015 Hospitalization History cellulitis 07/2017 Hospitalization History Afib 10/26/17
--- OUTSIDE RECORDS SUMMARY | 2018-08-04 15:29 | XMS REPORT ---
Author Author JORGE JACKSON Organization [facility] Address [address] [place] [address] Care Team Providers Care Turkey Cleaner Name Role Phone JORGE JACKSON Unavailable PROBLEMS Type Condition ICD9-CM Code [id number] Code Onset Dates Condition Status SNOMED Code Problem Arthritis M19.90 Active 5063770 Problem Chronic gastric ulcer without hemorrhage and without perforation K25.7 Active 03628711 Problem Neuropathy G62.9 Active 749511212 Problem 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 M05.741 Active 213308429 Problem Rheumatoid arthritis flare M06.9 Active 311797710 Problem Chronic atrial fibrillation I48.2 Active 547611168 Problem Panlobular emphysema J43.1 Active 5013547 Problem Rheumatoid arthritis of left hand without organ or system involvement with positive rheumatoid factor M05.742 Active 282517510 Problem Primary osteoarthritis involving multiple joints M15.0 Active 725223159 Problem History of nicotine dependence Z87.891 Active 60107557 Problem History of CA (myocardial infarction) I25.2 Active 752045874 Problem GERD (gastroesophageal reflux disease) K21.9 Active 849921571 Problem Hyperlipidemia E78.5 Active 87785575 Problem Hypertension I10 Active 21477122 Problem Coronary artery disease I25.10 Active 13532521 ALLERGIES No Information ENCOUNTERS Encounter Location Date Diagnosis [facility] [id number], [place] [address] Jan, 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 M05.741 [facility] [address], [place] [address] Jan, [facility] [id number], [place] [address]- 7543 Jan, Rheumatoid arthritis of left hand without organ or system involvement with positive rheumatoid factor M05.742 [place] [address] [place] [address] 75429- 5467 15 Dec, 2017 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 M05.741 [facility] [address] [place] [address] 57011- 0111 09 Dec, 2017 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 M05.741 and Rheumatoid arthritis of left hand without organ or system involvement with positive rheumatoid factor M05.742 [place] [address] [place] [address] 85087- 4576 Dec, Panlobular emphysema J43.1 [place] [id number] [place] [address] 81975- 7024 13 Dec, 2017 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 M05.741 ; Rheumatoid arthritis of left hand without organ or system involvement with positive rheumatoid factor M05.742 and Rheumatoid arthritis flare M06.9 [place] [place] [address] 77070- 3238 Dec, Primary osteoarthritis involving multiple joints M15.0 and Chronic atrial fibrillation I48.2 [place] [address] [place] [address] 57817- 9316 Nov, Arthritis M19.90 and Myalgia M79.1 [facility] W[facility] IN [facility] [address] [place] [address] 44392 -3574 Nov, [facility] [address] [place] [address] 32123- 7485 Nov, [place] [id number] [place] [address] 62203- 1739 Oct, Panlobular emphysema J43.1 and Chronic atrial fibrillation I48.2 [place] [address] [place] [address] 38448- 9085 Sep, Arthritis M19.90 and Chronic gastric ulcer without hemorrhage and without perforation K25.7 [facility] [address], [place] [address]- 0154 Aug, [facility] [id number] [place] [address] 92029- 2372 Aug, [facility] [id number] [place] [address] 83996- 5820 Aug, [facility] [id number] [place] [address] 80525- 5393 Jul, Neuropathy G62.9 and Arthritis M19.90 [facility] [id number] [place] [address] 72864- 7470 Jun, Arthritis M19.90 [facility] [id number] [place] [address] 25044 -8006 May, Pain in joints M25.50 [facility] [id number] [place] [address] 31643 -1628 Apr, Other malaise R53.81 [facility] [id number] [place] [address] 91704- 6602 Sep, [place] [id number] [place] [address] 09639- 1623 Sep, Routine adult health maintenance Z00.00 ; Hypertension I10 ; Hyperlipidemia E78.5 ; History of CA (myocardial infarction) I25.2 and Bronchitis J40 [place] [id number] [place] [address] 68340- 1160 Sep, [facility] [id number] [place] [address] 25324- 8223 Jan, [place] [id number] [place] [address] 41403- 6069 Jan, [facility] [id number] [place] [address] 38876- 6322 Aug, IMMUNIZATIONS No Known Immunizations SOCIAL HISTORY Never Assessed REASON FOR VISIT medication question PLAN OF CARE VITAL SIGNS MEDICATIONS Unknown Medications RESULTS No Results PROCEDURES No Known procedures INSTRUCTIONS MEDICATIONS ADMINISTERED No Known Medications MEDICAL (GENERAL) HISTORY Type Description Date Medical History CAD--3 stents placed 08-30-15 Medical History hypertension Medical History NSTEMI on 08-30-15 Medical History chest pain/unstable angina Medical History hyperlipidemia Medical History esophageal reflux Medical History Atrial fibrillation Medical History [place] Spotted Tick Fever Surgical History heart cath-3 stents placed in RAC (total occlusion) 08-30-15 Surgical History repeat heart cath--stents patent 08-31-15 Hospitalization History Heart cath with 3 stents placed 08/2015 Hospitalization History cellulitis 07/2017 Hospitalization History Afib 10/26/17
[2018-08-04] MEDS ORDERED: POLYETHYLENE GLYCOL 17 GM (MIRALAX) PACK PO PRN (15:30)
[2018-08-04] MEDS ORDERED: ONDANSETRON 4 MG (ZOFRAN) ORAL DISSOLVE TAB PO PRN (15:30)
[2018-08-04] MEDS ORDERED: PROMETHAZINE INJ 25 MG/ML (PHENERGAN) AMP IVP PRN (15:30)
[2018-08-04] MEDS ORDERED: NS IV 1000 ML 1,000 ML IV SCH (15:30)
[2018-08-04] MEDS ORDERED: methylPREDNISolone 125 MG (Solu-MEDROL) VIAL IVP NR (15:30)
[2018-08-04] MEDS ORDERED: CALCIUM CARBONATE 500 MG (TUMS) TAB.CHEW PO PRN (15:30)
--- OUTSIDE RECORDS SUMMARY | 2018-08-04 15:30 | XMS REPORT ---
Author Author JORGE JACKSON Organization [facility] Address [address] [place] [address] Care Team Providers Care Assistant Production Editor Name Role Phone JORGE JACKSON Unavailable PROBLEMS Type Condition ICD9-CM Code XOJ26-HP Code Onset Dates Condition Status SNOMED Code Problem Arthritis M19.90 Active 5364924 Problem Chronic gastric ulcer without hemorrhage and without perforation K25.7 Active 94835831 Problem Neuropathy G62.9 Active 282637753 Problem 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 M05.741 Active 104582603 Problem Rheumatoid arthritis flare M06.9 Active 753226987 Problem Chronic atrial fibrillation I48.2 Active 972140499 Problem Panlobular emphysema J43.1 Active 8564577 Problem Rheumatoid arthritis of left hand without organ or system involvement with positive rheumatoid factor M05.742 Active 560061776 Problem Primary osteoarthritis involving multiple joints M15.0 Active 136863282 Problem History of nicotine dependence Z87.891 Active 80804033 Problem History of [place] (myocardial infarction) I25.2 Active 805710191 Problem GERD (gastroesophageal reflux disease) K21.9 Active 610377580 Problem Hyperlipidemia E78.5 Active 93725179 Problem Hypertension I10 Active 37048388 Problem Coronary artery disease I25.10 Active 18381313 ALLERGIES No Information ENCOUNTERS Encounter Location Date Diagnosis [facility] [id number], [place] [address] Jan, 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 M05.741 [facility] [address] [address] Jan, [facility] [id number] [address] Jan, Rheumatoid arthritis of left hand without organ or system involvement with positive rheumatoid factor M05.742 [address] [place] [address] 07233- 2149 15 Dec, 2017 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 M05.741 [facility] [id number] [place] [address] 52906- 2542 09 Dec, 2017 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 M05.741 and Rheumatoid arthritis of left hand without organ or system involvement with positive rheumatoid factor M05.742 [address] [address] [place] [address] 78373- 1801 Dec, Panlobular emphysema J43.1 [place] [id number] [place] [address] 08878- 9908 13 Dec, 2017 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 M05.741 ; Rheumatoid arthritis of left hand without organ or system involvement with positive rheumatoid factor M05.742 and Rheumatoid arthritis flare M06.9 [address] [address] [place] [address] 88437- 4324 Dec, Primary osteoarthritis involving multiple joints M15.0 and Chronic atrial fibrillation I48.2 [place] [address] [place] [address] 49756- 4884 Nov, Arthritis M19.90 and Myalgia M79.1 [facility] [address] [place] [address] 67984 -0955 Nov, [facility] [address] [place] [address] 86043- 0022 Nov, [place] [id number] [place] [address] 21172- 6805 Oct, Panlobular emphysema J43.1 and Chronic atrial fibrillation I48.2 [place] [address] [place] [address] 24571- 0690 Sep, Arthritis M19.90 and Chronic gastric ulcer without hemorrhage and without perforation K25.7 [facility] [address], [place] [address] Aug, [facility] [id number] [place] [address] 04427- 0314 Aug, [facility] [id number] [place] [address] 12466- 4404 Aug, [facility] [id number] [place] [address] 04839- 6213 Jul, Neuropathy G62.9 and Arthritis M19.90 [facility] [id number] [place] [address] 98632- 4784 Jun, Arthritis M19.90 [facility] [id number] [place] [address] 95490 -0200 May, Pain in joints M25.50 [facility] [id number] [place] [address] 86829 -6186 Apr, Other malaise R53.81 [facility] [id number] [place] [address] 76094- 4646 Sep, [place] [id number] [place] [address] 04879- 3752 Sep, Routine adult health maintenance Z00.00 ; Hypertension I10 ; Hyperlipidemia E78.5 ; History of [place] (myocardial infarction) I25.2 and Bronchitis J40 [place] [address] [address] Sep, [facility] [id number] [place] [address] 82718- 2036 Jan, [place] [id number] [place] [address] 74099- 3870 Jan, [facility] [address] [place] [address] 74256- 2229 Aug, IMMUNIZATIONS No Known Immunizations SOCIAL HISTORY Never Assessed REASON FOR VISIT [place] Spotted Fever PLAN OF CARE VITAL SIGNS MEDICATIONS Unknown Medications RESULTS No Results PROCEDURES No Known procedures INSTRUCTIONS MEDICATIONS ADMINISTERED No Known Medications MEDICAL (GENERAL) HISTORY Type Description Date Medical History CAD--3 stents placed 08-30-15 Medical History hypertension Medical History NSTEMI on 08-30-15 Medical History chest pain/unstable angina Medical History hyperlipidemia Medical History esophageal reflux Medical History Atrial fibrillation Medical History [place] Spotted Tick Fever Surgical History heart cath-3 stents placed in RAC (total occlusion) 08-30-15 Surgical History repeat heart cath--stents patent 08-31-15 Hospitalization History Heart cath with 3 stents placed 08/2015 Hospitalization History cellulitis 07/2017 Hospitalization History Afib 10/26/17
--- OUTSIDE RECORDS SUMMARY | 2018-08-04 15:30 | XMS REPORT ---
Author Author CELY TREVIZO [facility] Address [address] [place] [address] Care Team Providers Care Liquid Loader Name Role Phone CELY TREVIZO Unavailable PROBLEMS Type Condition ICD9-CM Code KDQ42-KG Code Onset Dates Condition Status SNOMED Code Problem Arthritis M19.90 Active 9272880 Problem Chronic gastric ulcer without hemorrhage and without perforation K25.7 Active 24699062 Problem Neuropathy G62.9 Active 761985126 Problem 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 M05.741 Active 441575553 Problem Rheumatoid arthritis flare M06.9 Active 164722332 Problem Chronic atrial fibrillation I48.2 Active 997067040 Problem Panlobular emphysema J43.1 Active 1483624 Problem Rheumatoid arthritis of left hand without organ or system involvement with positive rheumatoid factor M05.742 Active 992514223 Problem Primary osteoarthritis involving multiple joints M15.0 Active 489061002 Problem History of nicotine dependence Z87.891 Active 50874378 Problem History of [place] (myocardial infarction) I25.2 Active 291319695 Problem GERD (gastroesophageal reflux disease) K21.9 Active 901466014 Problem Hyperlipidemia E78.5 Active 96289543 Problem Hypertension I10 Active 39392615 Problem Coronary artery disease I25.10 Active 26733220 ALLERGIES No Known Allergies ENCOUNTERS Encounter Location Date Diagnosis [facility] [address] [facility] [id number] [address] Jan, [facility] [id number], [place] [address] Dec, 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 M05.741 [facility] [id number], [place] [address] Dec, 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 M05.741 and Rheumatoid arthritis of left hand without organ or system involvement with positive rheumatoid factor M05.742 [facility] [id number] [place] [address] 06699- 0261 Dec, Panlobular emphysema J43.1 [facility] [id number] [place] [address] 87211- 1265 Dec, 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 M05.741 ; Rheumatoid arthritis of left hand without organ or system involvement with positive rheumatoid factor M05.742 and Rheumatoid arthritis flare M06.9 [facility] [address] [address]- 9450 Dec, Primary osteoarthritis involving multiple joints M15.0 and Chronic atrial fibrillation I48.2 [facility] [id number] [place] [address] 02168- 4731 Nov, Arthritis M19.90 and Myalgia M79.1 [facility] [id number] [place] [address] 71596 -7922 Nov, [facility] [id number] [place] [address] 70173- 8685 Nov, [facility] [id number] [place] [address] 55989- 6359 Oct, Panlobular emphysema J43.1 and Chronic atrial fibrillation I48.2 [facility] [id number] [place] [address] 32485- 8441 Sep, Arthritis M19.90 and Chronic gastric ulcer without hemorrhage and without perforation K25.7 [facility] [id number] [place] [address] 62183- 8527 Aug, [facility] [id number] [place] [address] 93241- 2959 Aug, [facility] [id number] [place] [address] 17851- 7402 Aug, [place] [id number] [place] [address] 91420- 2777 Jul, Neuropathy G62.9 and Arthritis M19.90 [place] [id number] [place] [address] 22779- 2981 Jun, Arthritis M19.90 [facility] [address] 96951 -1106 May, Pain in joints M25.50 [facility] [address] 73364 -9882 Apr, Other malaise R53.81 [place] [address] 66941- 0037 Sep, [place] [address] 51096- 3446 Sep, Routine adult health maintenance Z00.00 ; Hypertension I10 ; Hyperlipidemia E78.5 ; History of RI (myocardial infarction) I25.2 and Bronchitis J40 [place] [address] 24056- 5228 Sep, [place] [address] 90165- 8759 Jan, [place] [id number] [place] [address] 31926- 9009 Jan, [place] [address] 00155- 8332 Aug, IMMUNIZATIONS No Known Immunizations SOCIAL HISTORY Never Assessed REASON FOR VISIT Bilat shoulder, hip, wrist and elbow pain started over a month ago JStrasserRN PLAN OF CARE Activity Details Follow Up prn Reason: VITAL SIGNS Height 71 in 2017-05-26 Weight 151.0 lbs 2017-05-26 Temperature 97.7 degrees Fahrenheit 2017-05-26 Heart Rate 65 bpm 2017-05-26 Respiratory Rate 22 2017-05-26 BMI 21.06 kg/m2 2017-05-26 Blood pressure systolic 128 mmHg 2017-05-26 Blood pressure diastolic 74 mmHg 2017-05-26 MEDICATIONS Medication Instructions Dosage Frequency Start Date End Date Duration Status Diclofenac Sodium 75 MG Orally Twice a day 1 tablet with food or milk 12h May, Jun, 30 day(s) Active PredniSONE 20 MG Orally Once a day 2 tablet 24h May, May, 5 days Active Ibuprofen 400 MG Orally Three times a day 1 tablet with food or milk as needed 8h Active RESULTS No Results PROCEDURES No Known procedures INSTRUCTIONS MEDICATIONS ADMINISTERED No Known Medications MEDICAL (GENERAL) HISTORY Type Description Date Medical History CAD--3 stents placed 08-30-15 Medical History hypertension Medical History NSTEMI on 08-30-15 Medical History chest pain/unstable angina Medical History hyperlipidemia Medical History esophageal reflux Medical History Atrial fibrillation Medical History [place] Spotted Tick Fever Surgical History heart cath-3 stents placed in RAC (total occlusion) 08-30-15 Surgical History repeat heart cath--stents patent 08-31-15 Hospitalization History Heart cath with 3 stents placed 08/2015 Hospitalization History cellulitis 07/2017 Hospitalization History Afib 10/26/17
--- OUTSIDE RECORDS SUMMARY | 2018-08-04 15:30 | XMS REPORT ---
Author Author JORGE JACKSON Organization [facility] Address [address] [place] [address] Care Team Providers Care Income Tax Return Preparer Name Role Phone JORGE JACKSON Unavailable PROBLEMS Type Condition ICD9-CM Code FCK22-EB Code Onset Dates Condition Status SNOMED Code Problem Arthritis M19.90 Active 0055098 Problem Chronic gastric ulcer without hemorrhage and without perforation K25.7 Active 74910915 Problem Neuropathy G62.9 Active 314563570 Problem 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 M05.741 Active 576764498 Problem Rheumatoid arthritis flare M06.9 Active 066055429 Problem Chronic atrial fibrillation I48.2 Active 000475442 Problem Panlobular emphysema J43.1 Active 7981543 Problem Rheumatoid arthritis of left hand without organ or system involvement with positive rheumatoid factor M05.742 Active 627587288 Problem Primary osteoarthritis involving multiple joints M15.0 Active 812624331 Problem History of nicotine dependence Z87.891 Active 48113376 Problem History of [place] (myocardial infarction) I25.2 Active 139622279 Problem GERD (gastroesophageal reflux disease) K21.9 Active 082731913 Problem Hyperlipidemia E78.5 Active 62885408 Problem Hypertension I10 Active 81313773 Problem Coronary artery disease I25.10 Active 30259235 ALLERGIES No Information ENCOUNTERS Encounter Location Date Diagnosis [facility] [id number] [address] Jan, 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 M05.741 [facility] [address], [place] [address]- [address] Jan, [facility] [id number], [place] [address]- 6773 Jan, Rheumatoid arthritis of left hand without organ or system involvement with positive rheumatoid factor M05.742 [address] [place] [address] [place] [address] 58552- 1431 15 Dec, 2017 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 M05.741 [facility] [address] [place] [address] 15293- 0840 09 Dec, 2017 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 M05.741 and Rheumatoid arthritis of left hand without organ or system involvement with positive rheumatoid factor M05.742 [address] [address] [place] [address] 59242- 6423 Dec, Panlobular emphysema J43.1 [place] [id number] [place] [address] 52203- 2128 13 Dec, 2017 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 M05.741 ; Rheumatoid arthritis of left hand without organ or system involvement with positive rheumatoid factor M05.742 and Rheumatoid arthritis flare M06.9 [place] [address] [place] [address] 15672- 5420 Dec, Primary osteoarthritis involving multiple joints M15.0 and Chronic atrial fibrillation I48.2 [place] [address] [place] [address] 79049- 7071 Nov, Arthritis M19.90 and Myalgia M79.1 [facility] [address] [place] [address] 24593 -9957 Nov, [facility] [address] [place] [address] 69763- 5076 Nov, [place] [id number] [place] [address] 88240- 5261 Oct, Panlobular emphysema J43.1 and Chronic atrial fibrillation I48.2 [place] [address] [place] [address] 56457- 8857 Sep, Arthritis M19.90 and Chronic gastric ulcer without hemorrhage and without perforation K25.7 [facility] [id number], [place] [address]- [address] Aug, [facility] [id number] [place] [address] 97926- 8267 Aug, [facility] [id number] [place] [address] 82576- 8404 Aug, [facility] [id number] [place] [address] 87671- 6431 Jul, Neuropathy G62.9 and Arthritis M19.90 [facility] [id number] [place] [address] 91451- 3984 Jun, Arthritis M19.90 [facility] [id number] [place] [address] 81534 -1347 May, Pain in joints M25.50 [facility] [id number] [place] [address] 47417 -2414 Apr, Other malaise R53.81 [facility] [id number] [place] [address] 71069- 2738 Sep, [place] [id number] [place] [address] 13137- 2151 Sep, Routine adult health maintenance Z00.00 ; Hypertension I10 ; Hyperlipidemia E78.5 ; History of [place] (myocardial infarction) I25.2 and Bronchitis J40 [facility] [id number] [place] [address] 05582- 7608 Sep, [facility] [id number] [place] [address] 13166- 1742 Jan, [place] [id number] [place] [address] 82687- 3599 Jan, [facility] [id number] [place] [address] 33614- 1589 Aug, IMMUNIZATIONS No Known Immunizations SOCIAL HISTORY Never Assessed REASON FOR VISIT pt complaining of pain all over. been hurting since thursday. [email or web address] PLAN OF CARE VITAL SIGNS Height 71 in 2017-11-18 Weight 154.6 lbs 2017-11-18 Temperature 98.9 degrees Fahrenheit 2017-11-18 Heart Rate 94 bpm 2017-11-18 Respiratory Rate 20 2017-11-18 BMI 21.56 kg/m2 2017-11-18 Blood pressure systolic 136 mmHg 2017-11-18 Blood pressure diastolic 76 mmHg 2017-11-18 MEDICATIONS Medication Instructions Dosage Frequency Start Date End Date Duration Status Diltiazem HCl ER 240 MG Orally Once a day 1 capsule on an empty stomach in the morning 24h Active Qvar 40 MCG/ACT Inhalation Twice a day 1 puff Oct, Active Percocet 5-325 MG Orally every 6 hrs 1 tablet as needed Oct, Active Lyrica 75 MG Orally Twice a day 1 capsule Oct, Active Chantix 1 MG Orally Twice a day 1 tablet Oct, Apr, 30 day(s) Active Eliquis 5 mg Orally 2 times a day 1 tablet Oct, Active RESULTS No Results PROCEDURES No Known procedures INSTRUCTIONS MEDICATIONS ADMINISTERED No Known Medications MEDICAL (GENERAL) HISTORY Type Description Date Medical History CAD--3 stents placed 08-30-15 Medical History hypertension Medical History NSTEMI on 08-30-15 Medical History chest pain/unstable angina Medical History hyperlipidemia Medical History esophageal reflux Medical History Atrial fibrillation Medical History [place] Spotted Tick Fever Surgical History heart cath-3 stents placed in RAC (total occlusion) 08-30-15 Surgical History repeat heart cath--stents patent 08-31-15 Hospitalization History Heart cath with 3 stents placed 08/2015 Hospitalization History cellulitis 07/2017 Hospitalization History Afib 10/26/17
--- OUTSIDE RECORDS SUMMARY | 2018-08-04 15:30 | XMS REPORT ---
Author Author JORGE JACKSON Organization [facility] Address [address] [place] [address] Care Team Providers Care Communications Programmer Name Role Phone JORGE JACKSON Unavailable PROBLEMS Type Condition ICD9-CM Code [id number] Code Onset Dates Condition Status SNOMED Code Problem Arthritis M19.90 Active 7485898 Problem Chronic gastric ulcer without hemorrhage and without perforation K25.7 Active 33115622 Problem Neuropathy G62.9 Active 346156377 Problem 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 M05.741 Active 326802761 Problem Rheumatoid arthritis flare M06.9 Active 785497082 Problem Chronic atrial fibrillation I48.2 Active 368461345 Problem Panlobular emphysema J43.1 Active 5829889 Problem Rheumatoid arthritis of left hand without organ or system involvement with positive rheumatoid factor M05.742 Active 897589434 Problem Primary osteoarthritis involving multiple joints M15.0 Active 228742438 Problem History of nicotine dependence Z87.891 Active 06451664 Problem History of [place] (myocardial infarction) I25.2 Active 011229576 Problem GERD (gastroesophageal reflux disease) K21.9 Active 639592409 Problem Hyperlipidemia E78.5 Active 50383060 Problem Hypertension I10 Active 21706729 Problem Coronary artery disease I25.10 Active 84699552 ALLERGIES No Information ENCOUNTERS Encounter Location Date Diagnosis [facility] [id number] [address] Jan, 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 M05.741 [facility] [address], [place] [address] Jan, [facility] [id number] [address] Jan, Rheumatoid arthritis of left hand without organ or system involvement with positive rheumatoid factor M05.742 [place] [address] [place] [address] 39173- 9353 15 Dec, 2017 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 M05.741 [facility] [address] [place] [address] 86875- 5220 09 Dec, 2017 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 M05.741 and Rheumatoid arthritis of left hand without organ or system involvement with positive rheumatoid factor M05.742 [place] [address] [place] [address] 26567- 9664 Dec, Panlobular emphysema J43.1 [place] [id number] [place] [address] 81041- 6340 13 Dec, 2017 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 M05.741 ; Rheumatoid arthritis of left hand without organ or system involvement with positive rheumatoid factor M05.742 and Rheumatoid arthritis flare M06.9 [place] [address] [place] [address] 34801- 1313 Dec, Primary osteoarthritis involving multiple joints M15.0 and Chronic atrial fibrillation I48.2 [place] [address] [place] [address] 66633- 3495 Nov, Arthritis M19.90 and Myalgia M79.1 [facility] [address] [place] [address] 73749 -7261 Nov, [facility] [address] [place] [address] 43821- 7882 Nov, [place] [id number] [place] [address] 49912- 5901 Oct, Panlobular emphysema J43.1 and Chronic atrial fibrillation I48.2 [place] [address] [place] [address] 97768- 1530 Sep, Arthritis M19.90 and Chronic gastric ulcer without hemorrhage and without perforation K25.7 [facility] [address], [place] [address] Aug, [facility] [id number] [place] [address] 01719- 3430 Aug, [facility] [id number] [place] [address] 15936- 9679 Aug, [facility] [id number] [place] [address] 41481- 9388 Jul, Neuropathy G62.9 and Arthritis M19.90 [facility] [id number] [place] [address] 66018- 2567 Jun, Arthritis M19.90 [facility] [id number] [place] [address] 34022 -1183 May, Pain in joints M25.50 [facility] [id number] [place] [address] 80433 -7711 Apr, Other malaise R53.81 [facility] [id number] [place] [address] 32420- 4631 Sep, [place] [id number] [place] [address] 76720- 9018 Sep, Routine adult health maintenance Z00.00 ; Hypertension I10 ; Hyperlipidemia E78.5 ; History of [place] (myocardial infarction) I25.2 and Bronchitis J40 [place] [id number] [place] [address] 97385- 9863 Sep, [facility] [id number] [place] [address] 28171- 7346 Jan, [place] [id number] [place] [address] 40308- 6650 Jan, [facility] [id number] [place] [address] 15137- 5447 Aug, IMMUNIZATIONS No Known Immunizations SOCIAL HISTORY Never Assessed REASON FOR VISIT update PLAN OF CARE VITAL SIGNS MEDICATIONS Unknown Medications RESULTS No Results PROCEDURES No Known procedures INSTRUCTIONS MEDICATIONS ADMINISTERED No Known Medications MEDICAL (GENERAL) HISTORY Type Description Date Medical History CAD--3 stents placed 08-30-15 Medical History hypertension Medical History NSTEMI on 08-30-15 Medical History chest pain/unstable angina Medical History hyperlipidemia Medical History esophageal reflux Medical History Atrial fibrillation Medical History [place] Spotted Tick Fever Surgical History heart cath-3 stents placed in RAC (total occlusion) 08-30-15 Surgical History repeat heart cath--stents patent 08-31-15 Hospitalization History Heart cath with 3 stents placed 08/2015 Hospitalization History cellulitis 07/2017 Hospitalization History Afib 10/26/17
--- OUTSIDE RECORDS SUMMARY | 2018-08-04 15:30 | XMS REPORT ---
Author Author JORGE JACKSON Organization [facility] [place] Address [address] [place] [address] Care Team Providers Care Manager Gas Name Role Phone MANUEL JORGE Unavailable PROBLEMS Type Condition ICD9-CM Code LFI99-PA Code Onset Dates Condition Status SNOMED Code Problem Arthritis M19.90 Active 6195305 Problem Chronic gastric ulcer without hemorrhage and without perforation K25.7 Active 68354372 Problem Neuropathy G62.9 Active 955983268 Problem 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 M05.741 Active 699589242 Problem Rheumatoid arthritis flare M06.9 Active 333213633 Problem Chronic atrial fibrillation I48.2 Active 472828724 Problem Panlobular emphysema J43.1 Active 2120944 Problem Rheumatoid arthritis of left hand without organ or system involvement with positive rheumatoid factor M05.742 Active 487435861 Problem Primary osteoarthritis involving multiple joints M15.0 Active 936057186 Problem History of nicotine dependence Z87.891 Active 02232471 Problem History of [place] (myocardial infarction) I25.2 Active 644535484 Problem GERD (gastroesophageal reflux disease) K21.9 Active 172496010 Problem Hyperlipidemia E78.5 Active 09897958 Problem Hypertension I10 Active 34430620 Problem Coronary artery disease I25.10 Active 02086664 ALLERGIES No Known Allergies ENCOUNTERS Encounter Location Date Diagnosis [facility] [place] [id number], [place] [address] Jan, 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 M05.741 [facility] [place] [address], [place] [address] Jan, [facility] [place] [id number], [place] [address] Jan, Rheumatoid arthritis of left hand without organ or system involvement with positive rheumatoid factor M05.742 [facility] [place] [address], [place] [address] 15 Dec, 2017 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 M05.741 [facility] [place] [address] [place] [address] 61367- 3394 09 Dec, 2017 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 M05.741 and Rheumatoid arthritis of left hand without organ or system involvement with positive rheumatoid factor M05.742 [place] [address] [place] [address] 74246- 0448 Dec, Panlobular emphysema J43.1 [place] [id number] [place] [address] 46267- 7511 13 Dec, 2017 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 M05.741 ; Rheumatoid arthritis of left hand without organ or system involvement with positive rheumatoid factor M05.742 and Rheumatoid arthritis flare M06.9 [place] [address] [place] [address] 15387- 6695 Dec, Primary osteoarthritis involving multiple joints M15.0 and Chronic atrial fibrillation I48.2 [place] [address] [place] [address] 55719- 9672 Nov, Arthritis M19.90 and Myalgia M79.1 [facility] [address] [place] [address] 42091 -7098 Nov, [facility] [place] [id number] [place] [address] 62798- 1913 Nov, [place] [id number] [place] [address] 89728- 4024 Oct, Panlobular emphysema J43.1 and Chronic atrial fibrillation I48.2 [place] [address] [place] [address] 60736- 0989 Sep, Arthritis M19.90 and Chronic gastric ulcer without hemorrhage and without perforation K25.7 [facility] [place] [address], [place] [address] 4957 Aug, [facility] [place] [id number] [place] [address] 17302- 9415 Aug, [facility] [place] [id number] [place] [address] 37736- 1666 Aug, [facility] [place] [id number] [place] [address] 16317- 5109 Jul, Neuropathy G62.9 and Arthritis M19.90 [facility] [place] [id number] [place] [address] 15860- 7459 Jun, Arthritis M19.90 [facility] [id number] [place] [address] 86152 -8658 May, Pain in joints M25.50 [facility] [id number] [place] [address] 71620 -9432 Apr, Other malaise R53.81 [facility] [place] [id number] [place] [address] 82650- 5551 Sep, [place] [id number] [place] [address] 31265- 7444 Sep, Routine adult health maintenance Z00.00 ; Hypertension I10 ; Hyperlipidemia E78.5 ; History of [place] (myocardial infarction) I25.2 and Bronchitis J40 [facility] [place] [id number] [place] [address] 89175- 0794 Sep, [facility] [place] [id number] [place] [address] 63187- 4446 Jan, [facility] [place] [id number] [place] [address] 91572- 1822 13 Jan, 2015 [facility] [place] [id number] [place] [address] 33855- 9802 Aug, IMMUNIZATIONS No Known Immunizations SOCIAL HISTORY Never Assessed REASON FOR VISIT Transition of Care- Was seen in ER on Thursday with full body klaus Henson RN PLAN OF CARE VITAL SIGNS Height 71 in 2017-06-25 Weight 154 lbs 2017-06-25 Temperature 98.9 degrees Fahrenheit 2017-06-25 Heart Rate 74 bpm 2017-06-25 Respiratory Rate 20 2017-06-25 BMI 21.48 kg/m2 2017-06-25 Blood pressure systolic 138 mmHg 2017-06-25 Blood pressure diastolic 72 mmHg 2017-06-25 MEDICATIONS Medication Instructions Dosage Frequency Start Date End Date Duration Status Diclofenac Sodium 75 MG Orally Twice a day 1 tablet with food or milk 12h Jun, Aug, 30 day(s) Active PredniSONE 5 MG Orally Taper 1 tablet Active RESULTS No Results PROCEDURES No Known procedures INSTRUCTIONS MEDICATIONS ADMINISTERED No Known Medications MEDICAL (GENERAL) HISTORY Type Description Date Medical History CAD--3 stents placed 08-30-15 Medical History hypertension Medical History NSTEMI on 08-30-15 Medical History chest pain/unstable angina Medical History hyperlipidemia Medical History esophageal reflux Medical History Atrial fibrillation Medical History [place] Spotted Tick Fever Surgical History heart cath-3 stents placed in RAC (total occlusion) 08-30-15 Surgical History repeat heart cath--stents patent 08-31-15 Hospitalization History Heart cath with 3 stents placed 08/2015 Hospitalization History cellulitis 07/2017 Hospitalization History Afib 10/26/17
--- OUTSIDE RECORDS SUMMARY | 2018-08-04 15:30 | XMS REPORT ---
Author Author GELY DIAZ Organization [facility] Address [address] [place] [address] Care Team Providers Care Supervisor Securities Vault Name Role Phone GELY DIAZ Unavailable PROBLEMS Type Condition ICD9-CM Code FFR96-VC Code Onset Dates Condition Status SNOMED Code Problem Arthritis M19.90 Active 4958442 Problem Chronic gastric ulcer without hemorrhage and without perforation K25.7 Active 38006525 Problem Neuropathy G62.9 Active 414197569 Problem 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 M05.741 Active 385092798 Problem Rheumatoid arthritis flare M06.9 Active 940677712 Problem Chronic atrial fibrillation I48.2 Active 920124165 Problem Panlobular emphysema J43.1 Active 1551484 Problem Rheumatoid arthritis of left hand without organ or system involvement with positive rheumatoid factor M05.742 Active 511458549 Problem Primary osteoarthritis involving multiple joints M15.0 Active 439812489 Problem History of nicotine dependence Z87.891 Active 32059837 Problem History of [place] (myocardial infarction) I25.2 Active 619646781 Problem GERD (gastroesophageal reflux disease) K21.9 Active 577891223 Problem Hyperlipidemia E78.5 Active 31798909 Problem Hypertension I10 Active 68774979 Problem Coronary artery disease I25.10 Active 93768203 ALLERGIES No Known Allergies ENCOUNTERS Encounter Location Date Diagnosis [facility] [address] [facility] [id number] [address] Jan, 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 M05.741 [facility] [id number], [place] [address]- 1612 Jan, [facility] [id number], [place] [address]- 6188 Jan, Rheumatoid arthritis of left hand without organ or system involvement with positive rheumatoid factor M05.742 [facility] [address] [place] [address] 04277- 6609 Dec, 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 M05.741 [facility] [address], [place] [address]- 4288 Dec, 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 M05.741 and Rheumatoid arthritis of left hand without organ or system involvement with positive rheumatoid factor M05.742 [place] [address] [place] [address] 71147- 8057 Dec, Panlobular emphysema J43.1 [place] [id number] [place] [address] 28546- 7008 Dec, 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 M05.741 ; Rheumatoid arthritis of left hand without organ or system involvement with positive rheumatoid factor M05.742 and Rheumatoid arthritis flare M06.9 [place] [address] [place] [address] 62958- 7633 Dec, Primary osteoarthritis involving multiple joints M15.0 and Chronic atrial fibrillation I48.2 [place] [address] [place] [address] 73006- 8884 Nov, Arthritis M19.90 and Myalgia M79.1 [facility] [address] [place] [address] 56599 -2004 Nov, [facility] [address] [place] [address] 52583- 5018 Nov, [place] [id number] [place] [address] 83714- 4905 Oct, Panlobular emphysema J43.1 and Chronic atrial fibrillation I48.2 [place] [address] [place] [address] 60997- 8051 Sep, Arthritis M19.90 and Chronic gastric ulcer without hemorrhage and without perforation K25.7 [facility] [address], [place] [address]- 0235 Aug, [facility] [id number] [place] [address] 90207- 1555 Aug, [facility] [id number] [place] [address] 43153- 6037 Aug, [facility] [id number] [place] [address] 23103- 5303 Jul, Neuropathy G62.9 and Arthritis M19.90 [facility] [id number] [place] [address] 84855- 5577 Jun, Arthritis M19.90 [facility] [id number] [place] [address] 68894 -1938 May, Pain in joints M25.50 [facility] [id number] [place] [address] 73203 -3169 Apr, Other malaise R53.81 [facility] [id number] [place] [address] 06257- 3702 Sep, [place] [id number] [place] [address] 66566- 4190 Sep, Routine adult health maintenance Z00.00 ; Hypertension I10 ; Hyperlipidemia E78.5 ; History of [place] (myocardial infarction) I25.2 and Bronchitis J40 [facility] [id number] [place] [address] 76101- 6460 Sep, [facility] [id number] [place] [address] 32894- 8933 Jan, [facility] [id number] [place] [address] 19712- 4130 Jan, [facility] [id number] [place] [address] 28204- 6588 Aug, IMMUNIZATIONS No Known Immunizations SOCIAL HISTORY Never Assessed REASON FOR VISIT Pain- states he has terrible joint pain, started Thursday, has progressed through out the weekend- states he was seen around the for the same thing was given steroids and tordol which helped him a lot, as soon as the steroids were complete his pain came back again---Misa Henson RN, Bilat wrist swelling, bilat Knee swelling, Bilat shoulder swelling, and bilat elbow swelling- Misa Henson RN PLAN OF CARE Activity Details Follow Up will call after lab Reason: VITAL SIGNS Height 71 in 2017-12-15 Weight 216.05 lbs 2017-12-15 Temperature 98 degrees Fahrenheit 2017-12-15 Heart Rate 90 bpm 2017-12-15 Respiratory Rate 24 2017-12-15 BMI 30.13 kg/m2 2017-12-15 Blood pressure systolic 142 mmHg 2017-12-15 Blood pressure diastolic 82 mmHg 2017-12-15 MEDICATIONS Medication Instructions Dosage Frequency Start Date End Date Duration Status Eliquis 5 mg Orally 2 times a day 1 tablet Oct, Active PredniSONE 10 mg Orally Once a day 4 tabs qd 5days, 3 tabs qd 5days, 2 tabs qd 5 days, then 1 qd 24h Dec, Active Chantix 1 MG Orally Twice a day 1 tablet Oct, Apr, 30 day(s) Active Diltiazem HCl ER 240 MG Orally Once a day 1 capsule on an empty stomach in the morning 24h Active Arava 20 mg Orally Once a day 1 tablet 24h Dec, Jan, 30 day(s) Active Qvar 40 MCG/ACT Inhalation Twice a day 1 puff Oct, Active Celebrex 200 mg Orally Once a day 1 capsule with food 24h Dec, Apr, 30 day(s) Active RESULTS Name Result Date Reference Range CRP 2017-12-15 C-REACTIVE PROTEIN 166.1 <8.0 PROCEDURES Procedure Date Ordered Result Body Site C-REACTIVE PROTEIN Dec 15, 2017 VENIPUNCT, ROUTINE* Dec 15, 2017 INSTRUCTIONS MEDICATIONS ADMINISTERED No Known Medications MEDICAL (GENERAL) HISTORY Type Description Date Medical History CAD--3 stents placed 08-30-15 Medical History hypertension Medical History NSTEMI on 08-30-15 Medical History chest pain/unstable angina Medical History hyperlipidemia Medical History esophageal reflux Medical History Atrial fibrillation Medical History [place] Spotted Tick Fever Surgical History heart cath-3 stents placed in RAC (total occlusion) 08-30-15 Surgical History repeat heart cath--stents patent 08-31-15 Hospitalization History Heart cath with 3 stents placed 08/2015 Hospitalization History cellulitis 07/2017 Hospitalization History Afib 10/26/17
--- OUTSIDE RECORDS SUMMARY | 2018-08-04 15:31 | XMS REPORT ---
Author Author JORGE JACKSON Organization [facility] Address [address] [place] [address] Care Team Providers Care Flower Grower Name Role Phone MANUEL JORGE Unavailable PROBLEMS Type Condition ICD9-CM Code [id number] Code Onset Dates Condition Status SNOMED Code Problem Arthritis M19.90 Active 4911985 Problem Chronic gastric ulcer without hemorrhage and without perforation K25.7 Active 55868125 Problem Neuropathy G62.9 Active 781318409 Problem 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 M05.741 Active 134756837 Problem Rheumatoid arthritis flare M06.9 Active 957499656 Problem Chronic atrial fibrillation I48.2 Active 208297420 Problem Panlobular emphysema J43.1 Active 5860282 Problem Rheumatoid arthritis of left hand without organ or system involvement with positive rheumatoid factor M05.742 Active 546074080 Problem Primary osteoarthritis involving multiple joints M15.0 Active 466565187 Problem History of nicotine dependence Z87.891 Active 28940923 Problem History of [place] (myocardial infarction) I25.2 Active 598296398 Problem GERD (gastroesophageal reflux disease) K21.9 Active 205287570 Problem Hyperlipidemia E78.5 Active 88994342 Problem Hypertension I10 Active 82781302 Problem Coronary artery disease I25.10 Active 30761822 ALLERGIES No Known Allergies ENCOUNTERS Encounter Location Date Diagnosis [facility] [id number], [place] [address] Jan, 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 M05.741 [facility] [address], [place] [address] Jan, [facility] [id number], [place] [address] Jan, Rheumatoid arthritis of left hand without organ or system involvement with positive rheumatoid factor M05.742 [facility] [address], [place] [address] 15 Dec, 2017 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 M05.741 [facility] [address] [place] [address] 84079- 4230 09 Dec, 2017 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 M05.741 and Rheumatoid arthritis of left hand without organ or system involvement with positive rheumatoid factor M05.742 [address] [place] [address] 57041- 9015 Dec, Panlobular emphysema J43.1 [place] [id number] [place] [address] 92870- 0397 13 Dec, 2017 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 M05.741 ; Rheumatoid arthritis of left hand without organ or system involvement with positive rheumatoid factor M05.742 and Rheumatoid arthritis flare M06.9 [place] [address] [place] [address] 18041- 1363 Dec, Primary osteoarthritis involving multiple joints M15.0 and Chronic atrial fibrillation I48.2 [place] [address] [place] [address] 13903- 1800 Nov, Arthritis M19.90 and Myalgia M79.1 [facility] [address] [place] [address] 98654 -3501 Nov, [facility] [id number] [place] [address] 47933- 2362 Nov, [place] [id number] [place] [address] 70608- 0800 Oct, Panlobular emphysema J43.1 and Chronic atrial fibrillation I48.2 [place] [address] [place] [address] 05943- 8266 Sep, Arthritis M19.90 and Chronic gastric ulcer without hemorrhage and without perforation K25.7 [facility] [id number] [address] Aug, [facility] [id number] [place] [address] 78039- 1721 Aug, [facility] [id number] [place] [address] 97193- 7796 Aug, [facility] [id number] [place] [address] 08743- 0044 Jul, Neuropathy G62.9 and Arthritis M19.90 [facility] [id number] [place] [address] 68935- 1832 Jun, Arthritis M19.90 [facility] [id number] [place] [address] 90080 -0276 May, Pain in joints M25.50 [facility] [id number] [place] [address] 90008 -4130 Apr, Other malaise R53.81 [facility] [id number] [place] [address] 22993- 4662 Sep, [place] [id number] [place] [address] 16246- 2889 Sep, Routine adult health maintenance Z00.00 ; Hypertension I10 ; Hyperlipidemia E78.5 ; History of [place] (myocardial infarction) I25.2 and Bronchitis J40 [place] [id number] [place] [address] 56720- 9292 Sep, [facility] [id number] [place] [address] 67482- 6533 Jan, [place] [id number] [place] [address] 09549- 4575 Jan, [facility] [id number] [place] [address] 98603- 9253 Aug, IMMUNIZATIONS No Known Immunizations SOCIAL HISTORY Never Assessed REASON FOR VISIT Arthritis----DBennettRN, right arm swelling, has been seen at twice this week d/t Afib PLAN OF CARE VITAL SIGNS Height 71 in 2017-10-30 Weight 153 lbs 2017-10-30 Temperature 98.1 degrees Fahrenheit 2017-10-30 Heart Rate 90 bpm 2017-10-30 Respiratory Rate 20 2017-10-30 BMI 21.34 kg/m2 2017-10-30 Blood pressure systolic 138 mmHg 2017-10-30 Blood pressure diastolic 72 mmHg 2017-10-30 MEDICATIONS Medication Instructions Dosage Frequency Start Date End Date Duration Status Percocet 5-325 MG Orally every 6 hrs 1 tablet as needed 6h Oct, Active Diltiazem HCl ER 240 MG Orally Once a day 1 capsule on an empty stomach in the morning 24h Active Chantix 1 MG Orally Twice a day 1 tablet Oct, Apr, 30 day(s) Active Qvar 40 MCG/ACT Inhalation Twice a day 1 puff Oct, Active Lyrica 75 MG Orally Twice a day 1 capsule Oct, Active Eliquis 5 mg Orally 2 times [...] reflux Medical History Atrial fibrillation Medical History [place] Spotted Tick Fever Surgical History heart cath-3 stents placed in RAC (total occlusion) 08-30-15 Surgical History repeat heart cath--stents patent 08-31-15 Hospitalization History Heart cath with 3 stents placed 08/2015 Hospitalization History cellulitis 07/2017 Hospitalization History Afib 10/26/17
--- OUTSIDE RECORDS SUMMARY | 2018-08-04 15:31 | XMS REPORT ---
Author Author JORGE JACKSON Organization [facility] Address [address] [place] [address] Care Team Providers Care Picker Box Operator Name Role Phone MANUEL JORGE Unavailable PROBLEMS Type Condition ICD9-CM Code SCQ17-QC Code Onset Dates Condition Status SNOMED Code Problem Arthritis M19.90 Active 9418380 Problem Chronic gastric ulcer without hemorrhage and without perforation K25.7 Active 98384973 Problem Neuropathy G62.9 Active 590571319 Problem 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 M05.741 Active 899255495 Problem Rheumatoid arthritis flare M06.9 Active 583230267 Problem Chronic atrial fibrillation I48.2 Active 930395121 Problem Panlobular emphysema J43.1 Active 8176828 Problem Rheumatoid arthritis of left hand without organ or system involvement with positive rheumatoid factor M05.742 Active 559080287 Problem Primary osteoarthritis involving multiple joints M15.0 Active 014615652 Problem History of nicotine dependence Z87.891 Active 39807664 Problem History of [place] (myocardial infarction) I25.2 Active 569674744 Problem GERD (gastroesophageal reflux disease) K21.9 Active 164333473 Problem Hyperlipidemia E78.5 Active 28756696 Problem Hypertension I10 Active 48766955 Problem Coronary artery disease I25.10 Active 86238022 ALLERGIES No Known Allergies ENCOUNTERS Encounter Location Date Diagnosis [facility] [id number] [address] Jan, 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 M05.741 [facility] [address] [address] Jan, [facility] [id number] [address] Jan, Rheumatoid arthritis of left hand without organ or system involvement with positive rheumatoid factor M05.742 [facility] [address] [address] 15 Dec, 2017 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 M05.741 [facility] [address] [place] [address] 51373- 8998 09 Dec, 2017 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 M05.741 and Rheumatoid arthritis of left hand without organ or system involvement with positive rheumatoid factor M05.742 [address] [place] [address] 50107- 7812 Dec, Panlobular emphysema J43.1 [place] [id number] [place] [address] 56960- 9660 13 Dec, 2017 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 M05.741 ; Rheumatoid arthritis of left hand without organ or system involvement with positive rheumatoid factor M05.742 and Rheumatoid arthritis flare M06.9 [address] [address] [place] [address] 41948- 1600 Dec, Primary osteoarthritis involving multiple joints M15.0 and Chronic atrial fibrillation I48.2 [place] [address] [address] [place] [address] 03581- 4282 Nov, Arthritis M19.90 and Myalgia M79.1 [facility] [address] [place] [address] 50568 -7201 Nov, [facility] [id number] [place] [address] 78481- 7648 Nov, [place] [id number] [place] [address] 68449- 1903 Oct, Panlobular emphysema J43.1 and Chronic atrial fibrillation I48.2 [place] [address] [place] [address] 61815- 5844 Sep, Arthritis M19.90 and Chronic gastric ulcer without hemorrhage and without perforation K25.7 [facility] [id number] [place] [address] 30220- 0124 Aug, [facility] [id number] [place] [address] 20283- 4833 Aug, [facility] [id number] [place] [address] 13157- 1976 Aug, [facility] [address] [address]- [address]67 Jul, Neuropathy G62.9 and Arthritis M19.90 [place] [address] 5[address]34- 6232 Jun, Arthritis M19.90 [facility] [id number] [place] [address] 17002 -6745 May, Pain in joints M25.50 [facility] [address] [address]109 Apr, Other malaise R53.81 [place] [id number] [place] [address] 91376- 6421 Sep, [place] [id number] [place] [address] 30762- 7008 Sep, Routine adult health maintenance Z00.00 ; Hypertension I10 ; Hyperlipidemia E78.5 ; History of [place] (myocardial infarction) I25.2 and Bronchitis J40 [place] [id number] [place] [address] 43324- 1427 Sep, [place] [id number] [place] [address] 74879- 3459 Jan, [place] [address] 36487- 1128 13 Jan, 2015 [facility] [id number] [place] [address] 12135- 0350 Aug, IMMUNIZATIONS Vaccine Route Administration Date Status TORADOL (IM) 60 MG/2ML (UP TO 15 MG) IM Intramuscular Nov 18, 2017 Administered SOLUMEDROL (UP TO 125 MG) IM Intramuscular Nov 18, 2017 Administered SOCIAL HISTORY Never Assessed REASON FOR VISIT Arthritis, Pt having difficulty getting up from chair, gait slow and difficult. Reports unable to get warm at home. Reports has been this way since Thursday. C/O joints hurting and hands swollen. , CbrumbackRN PLAN OF CARE VITAL SIGNS Height 71 in 2017-11-18 Weight 151.0 lbs 2017-11-18 Temperature 98.1 degrees Fahrenheit 2017-11-18 Heart Rate 112 bpm 2017-11-18 Respiratory Rate 22 2017-11-18 BMI 21.06 kg/m2 2017-11-18 Blood pressure systolic 118 mmHg 2017-11-18 Blood pressure diastolic 82 mmHg 2017-11-18 MEDICATIONS Medication Instructions Dosage Frequency Start Date End Date Duration Status Percocet 5-325 MG Orally every 6 hrs 1 tablet as needed 6h Oct, Active PredniSONE 20 mg Orally Once a day x 5 days then 1 tab daily x 5 days then 1/ 2 tab daily x 6 days. 2 tablets Nov, Active Diltiazem HCl ER 240 MG Orally Once a day 1 capsule on an empty stomach in the morning 24h Active Qvar 40 MCG/ACT Inhalation Twice a day 1 puff Oct, Active Chantix 1 MG Orally Twice a day 1 tablet Oct, Apr, 30 day(s) Active Lyrica 75 MG Orally Twice a day 1 capsule h Oct, Not- Taking Eliquis 5 mg Orally 2 times a day 1 tablet Oct, Active RESULTS No Results PROCEDURES Procedure Date Ordered Result Body Site VENIPUNCT, ROUTINE* Nov 18, 2017 TORADOL (IM) 60 MG/2ML (UP TO 15 MG) Nov 18, 2017 ASSAY OF CK (CPK) Nov 18, 2017 ASSAY OF CPK IN BLOOD Nov 18, 2017 ASSAY OF MYOGLOBIN Nov 18, 2017 SOLUMEDROL (UP TO 125 MG) Nov 18, 2017 THER/PROPH/DIAG INJ, SC/IM Nov 18, 2017 COMPREHEN METABOLIC PANEL Nov 18, 2017 COMPLETE CBC W/AUTO DIFF WBC Nov 18, 2017 INSTRUCTIONS MEDICATIONS ADMINISTERED No Known Medications MEDICAL (GENERAL) HISTORY Type Description Date Medical History CAD--3 stents placed 08-30-15 Medical History hypertension Medical History NSTEMI on 08-30-15 Medical History chest pain/unstable angina Medical History hyperlipidemia Medical History esophageal reflux Medical History Atrial fibrillation Medical History [place] Spotted Tick Fever Surgical History heart cath-3 stents placed in RAC (total occlusion) 08-30-15 Surgical History repeat heart cath--stents patent 08-31-15 Hospitalization History Heart cath with 3 stents placed 08/2015 Hospitalization History cellulitis 07/2017 Hospitalization History Afib 10/26/17
--- OUTSIDE RECORDS SUMMARY | 2018-08-04 15:31 | XMS REPORT ---
Author Author JORGE JACKSON Organization [facility] Address [address] [place] [address] Care Team Providers Care Church Supervisor Name Role Phone JORGE JACKSON Unavailable PROBLEMS Type Condition ICD9-CM Code [id number] Code Onset Dates Condition Status SNOMED Code Problem Arthritis M19.90 Active 2037964 Problem Chronic gastric ulcer without hemorrhage and without perforation K25.7 Active 19358341 Problem Neuropathy G62.9 Active 403563258 Problem 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 M05.741 Active 190479117 Problem Rheumatoid arthritis flare M06.9 Active 527512201 Problem Chronic atrial fibrillation I48.2 Active 728103077 Problem Panlobular emphysema J43.1 Active 9162617 Problem Rheumatoid arthritis of left hand without organ or system involvement with positive rheumatoid factor M05.742 Active 214233373 Problem Primary osteoarthritis involving multiple joints M15.0 Active 971790943 Problem History of nicotine dependence Z87.891 Active 67260884 Problem History of [place] (myocardial infarction) I25.2 Active 666441256 Problem GERD (gastroesophageal reflux disease) K21.9 Active 642395771 Problem Hyperlipidemia E78.5 Active 10268698 Problem Hypertension I10 Active 72825131 Problem Coronary artery disease I25.10 Active 77811029 ALLERGIES No Information ENCOUNTERS Encounter Location Date Diagnosis [facility] [id number] [address] Jan, 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 M05.741 [facility] [address] [address] Jan, [facility] [id number] [address] Jan, Rheumatoid arthritis of left hand without organ or system involvement with positive rheumatoid factor M05.742 [address] [address] [place] [address] 34616- 1367 15 Dec, 2017 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 M05.741 [facility] [address] [place] [address] 46986- 6131 09 Dec, 2017 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 M05.741 and Rheumatoid arthritis of left hand without organ or system involvement with positive rheumatoid factor M05.742 [address] [address] [address] [place] [address] 31031- 5736 Dec, Panlobular emphysema J43.1 [place] [id number] [place] [address] 00355- 7347 13 Dec, 2017 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 M05.741 ; Rheumatoid arthritis of left hand without organ or system involvement with positive rheumatoid factor M05.742 and Rheumatoid arthritis flare M06.9 [place] [address] [place] [address] 60375- 3236 Dec, Primary osteoarthritis involving multiple joints M15.0 and Chronic atrial fibrillation I48.2 [place] [address] [place] [address] 98166- 1426 Nov, Arthritis M19.90 and Myalgia M79.1 [facility] [address] [place] [address] 29400 -7900 Nov, [facility] [address] [place] [address] 32478- 8010 Nov, [place] [id number] [place] [address] 75154- 0477 Oct, Panlobular emphysema J43.1 and Chronic atrial fibrillation I48.2 [place] [address] [place] [address] 50983- 2527 Sep, Arthritis M19.90 and Chronic gastric ulcer without hemorrhage and without perforation K25.7 [facility] [address] [address] 8[address] Aug, [facility] [id number] [place] [address] 58743- 0956 Aug, [facility] [id number] [place] [address] 52232- 3746 Aug, [facility] [id number] [place] [address] 77756- 6715 Jul, Neuropathy G62.9 and Arthritis M19.90 [facility] [id number] [place] [address] 36729- 0037 Jun, Arthritis M19.90 [facility] [id number] [place] [address] 11151 -7306 May, Pain in joints M25.50 [facility] [id number] [place] [address] 13171 -1872 Apr, Other malaise R53.81 [facility] [id number] [place] [address] 46099- 0576 Sep, [place] [id number] [place] [address] 89656- 9366 Sep, Routine adult health maintenance Z00.00 ; Hypertension I10 ; Hyperlipidemia E78.5 ; History of [place] (myocardial infarction) I25.2 and Bronchitis J40 [facility] [address] [place] [address] 68717- 7314 Sep, [facility] [id number] [place] [address] 85447- 8006 Jan, [place] [id number] [place] [address] 85049- 0376 Jan, [facility] [id number] [place] [address] 50026- 1324 Aug, IMMUNIZATIONS No Known Immunizations SOCIAL HISTORY Never Assessed REASON FOR VISIT Requests return call PLAN OF CARE VITAL SIGNS MEDICATIONS Unknown Medications RESULTS No Results PROCEDURES No Known procedures INSTRUCTIONS MEDICATIONS ADMINISTERED No Known Medications MEDICAL (GENERAL) HISTORY Type Description Date Medical History CAD--3 stents placed 08-30-15 Medical History hypertension Medical History NSTEMI on 08-30-15 Medical History chest pain/unstable angina Medical History hyperlipidemia Medical History esophageal reflux Medical History Atrial fibrillation Medical History [place] Spotted Tick Fever Surgical History heart cath-3 stents placed in RAC (total occlusion) 08-30-15 Surgical History repeat heart cath--stents patent 08-31-15 Hospitalization History Heart cath with 3 stents placed 08/2015 Hospitalization History cellulitis 07/2017 Hospitalization History Afib 10/26/17
--- OUTSIDE RECORDS SUMMARY | 2018-08-04 15:31 | XMS REPORT ---
Author Author JORGE JACKSON Organization [facility] Address [address] [place] [address] Care Team Providers Care Student Dean Name Role Phone JORGE JACKSON Unavailable PROBLEMS Type Condition ICD9-CM Code RTU05-TD Code Onset Dates Condition Status SNOMED Code Problem Arthritis M19.90 Active 8930706 Problem Chronic gastric ulcer without hemorrhage and without perforation K25.7 Active 81391174 Problem Neuropathy G62.9 Active 377578470 Problem 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 M05.741 Active 139243412 Problem Rheumatoid arthritis flare M06.9 Active 464940088 Problem Chronic atrial fibrillation I48.2 Active 425593767 Problem Panlobular emphysema J43.1 Active 1465308 Problem Rheumatoid arthritis of left hand without organ or system involvement with positive rheumatoid factor M05.742 Active 181067971 Problem Primary osteoarthritis involving multiple joints M15.0 Active 662726648 Problem History of nicotine dependence Z87.891 Active 36470593 Problem History of ME (myocardial infarction) I25.2 Active 525121674 Problem GERD (gastroesophageal reflux disease) K21.9 Active 305917521 Problem Hyperlipidemia E78.5 Active 81689611 Problem Hypertension I10 Active 06188298 Problem Coronary artery disease I25.10 Active 11655222 ALLERGIES No Known Allergies ENCOUNTERS Encounter Location Date Diagnosis [facility] [address] [facility] [id number] [address] Dec, 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 M05.741 [facility] [id number] [address] Dec, 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 M05.741 and Rheumatoid arthritis of left hand without organ or system involvement with positive rheumatoid factor M05.742 [facility] [id number] [place] [address] Dec, Panlobular emphysema J43.1 [facility] [id number] [place] [address] 13 Dec, 2017 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 M05.741 ; Rheumatoid arthritis of left hand without organ or system involvement with positive rheumatoid factor M05.742 and Rheumatoid arthritis flare M06.9 [facility] [facility] [id number] [place] [address] 02 Dec, 2017 Primary osteoarthritis involving multiple joints M15.0 and Chronic atrial fibrillation I48.2 [place] [address] [address] Nov, Arthritis M19.90 and Myalgia M79.1 [facility] [id number] [place] [phone] Nov, [facility] [id number] [place] [address] Nov, [place] [id number] [place] [address] Oct, Panlobular emphysema J43.1 and Chronic atrial fibrillation I48.2 [place] [id number] [place] [address] Sep, Arthritis M19.90 and Chronic gastric ulcer without hemorrhage and without perforation K25.7 [facility] [id number] [place] [address] Aug, [place] [id number] [place] [address] Aug, [place] [id number] [place] [address] Aug, [place] [id number] [place] [address] Jul, Neuropathy G62.9 and Arthritis M19.90 [facility] [id number] [place] [address] Jun, Arthritis M19.90 [facility] [id number] [place] [address] May, Pain in joints M25.50 [facility] [id number] [place] [address] Apr, Other malaise R53.81 [place] [id number] [place] [address] Sep, [place] [address] [address] Sep, Routine adult health maintenance Z00.00 ; Hypertension I10 ; Hyperlipidemia E78.5 ; History of ME (myocardial infarction) I25.2 and Bronchitis J40 [place] [address] [address] Sep, [place] [id number] [place] [address] Jan, [place] [id number] [place] [address] Jan, [place] [id number] [place] [address] Aug, IMMUNIZATIONS No Known Immunizations SOCIAL HISTORY Never Assessed REASON FOR VISIT last pt started having pain in his shoulders. having trouble raising them up above his head. now both arms hurt. pt is concerned he has lymes disease cause he is always in the arauz. andrey, also very weak and fatigued. PLAN OF CARE VITAL SIGNS Height 71 in 2017-04-22 Weight 149.4 lbs 2017-04-22 Temperature 98.1 degrees Fahrenheit 2017-04-22 Heart Rate 84 bpm 2017-04-22 Respiratory Rate 20 2017-04-22 BMI 20.83 kg/m2 2017-04-22 Blood pressure systolic 124 mmHg 2017-04-22 Blood pressure diastolic 64 mmHg 2017-04-22 MEDICATIONS Medication Instructions Dosage Frequency Start Date End Date Duration Status Doxycycline Hyclate 100 mg Orally every 12 hrs 1 capsule 12h Apr, May, 10 days Active RESULTS Name Result Date Reference Range SHIELA HAYESN SPOTTED FEVER, IgG 2017-04-22 RMSF, IgG, EIA Negative Negative SHIELA HAYESN SPOTTED FEVER, IgM 2017-04-[address] Spotted Fever, IgM 0.28 0.00-0.89 LYME, TOTAL ANTIBODY/REFLEX WESTERN BLOT 2017-04-22 Lyme IgG/IgM Ab <0.91 0.00-0.90 CBC 2017-04-22 WBC 12.2 3.4-10.8 RBC 4.64 4.14-5.80 Hemoglobin 13.7 12.6-17.7 Hematocrit 40.3 37.5-51.0 MCV 87 79-97 MCH 29.5 26.6-33.0 MCHC 34.0 31.5-35.7 RDW 13.9 12.3-15.4 Platelets 315 150-379 Neutrophils 82 Lymphs 10 Monocytes 8 Eos 0 Basos 0 Neutrophils (Absolute) 9.9 1.4-7.0 Lymphs (Absolute) 1.2 0.7-3.1 Monocytes(Absolute) 1.0 0.1-0.9 Eos (Absolute) 0.0 0.0-0.4 Baso (Absolute) 0.0 0.0-0.2 Immature Granulocytes 0 Immature Grans (Abs) 0.0 0.0-0.1 ESR/SED RATE 2017-04-22 Sedimentation Rate-Westergren 27 0-30 CMP 2017-04-22 Glucose, Serum 106 65-99 BUN 23 8-27 Creatinine, Serum 1.03 0.76-1.27 eGFR If NonAfricn Am 77 >59 eGFR If Africn Am 90 >59 BUN/Creatinine Ratio 22 10-24 Sodium, Serum 140 134-144 Potassium, Serum 4.6 3.5-5.2 Chloride, Serum 99 96-106 Carbon Dioxide, Total 17 18-29 Calcium, Serum 9.5 8.6-10.2 Protein, Total, Serum 6.9 6.0-8.5 Albumin, Serum 4.1 3.6-4.8 Globulin, Total 2.8 1.5-4.5 A/G Ratio 1.5 1.2-2.2 Bilirubin, Total 0.7 0.0-1.2 Alkaline Phosphatase, S 75 39-117 AST (SGOT) 14 0-40 ALT (SGPT) 11 0-44 PROCEDURES Procedure Date Ordered Result Body Site RICKETTSIA ANTIBODY April 22, 2017 VENIPUNCT, ROUTINE* April 22, 2017 COMPLETE CBC W/AUTO DIFF WBC April 22, 2017 LYME DISEASE ANTIBODY April 22, 2017 COMPREHEN METABOLIC PANEL April 22, 2017 RBC SED RATE, AUTOMATED April 22, 2017 INSTRUCTIONS MEDICATIONS ADMINISTERED No Known Medications MEDICAL (GENERAL) HISTORY Type Description Date Medical History CAD--3 stents placed 08-30-15 Medical History hypertension Medical History NSTEMI on 08-30-15 Medical History chest pain/unstable angina Medical History hyperlipidemia Medical History esophageal reflux Medical History Atrial fibrillation Medical History [place] Spotted Tick Fever Surgical History heart cath-3 stents placed in RAC (total occlusion) 08-30-15 Surgical History repeat heart cath--stents patent 08-31-15 Hospitalization History Heart cath with 3 stents placed 08/2015 Hospitalization History cellulitis 07/2017 Hospitalization History Afib 10/26/17
[2018-08-04 15:35] VITALS: BP 99/56
[2018-08-04] MEDS ORDERED: CEFEPIME INJECTION 2,000 MG in NS (IVPB) 50 ML IV NR (15:45)
[2018-08-04] MEDS ORDERED: fentaNYL INJECTION 100 MCG/2 ML AMP IVP PRN (15:45)
[2018-08-04] MEDS ORDERED: RAMELTEON 8 MG (ROZEREM) TAB PO PRN (15:45)
[2018-08-04] MEDS ORDERED: CATHETER FLUSH 10 ML SYR IV PRN (16:00)
[2018-08-04 16:17] LABS: BASOPHILS % (AUTO) 0 % (0-10); EOSINOPHILS % (AUTO) 0 % (0-10); HEMATOCRIT 38 % (40-54); HEMOGLOBIN 13.2 G/DL (13.3-17.7); LYMPHOCYTES # (AUTO) 0.8 X 10^3 (1.0-4.0); LYMPHOCYTES % (AUTO) 8 % (12-44); MEAN CORPUSCULAR HEMOGLOBIN 29 PG (25-34); MEAN CORPUSCULAR HGB CONC 35 G/DL (32-36); MEAN CORPUSCULAR VOLUME 84 FL (80-99); MEAN PLATELET VOLUME 9.3 FL (7.4-10.4); MONOCYTES # (AUTO) 0.9 X 10^3 (0.0-1.0); MONOCYTES % (AUTO) 9 % (0-12); NEUTROPHILS % (AUTO) 84 % (42-75); PLATELET COUNT 304 10^3/uL (130-400); RED BLOOD COUNT 4.49 10^6/uL (4.35-5.85); RED CELL DISTRIBUTION WIDTH 14.4 % (10.0-14.5); WHITE BLOOD COUNT 10.7 10^3/uL (4.3-11.0)
[2018-08-04 16:48] LABS: ALBUMIN 3.4 GM/DL (3.2-4.5); BILIRUBIN,TOTAL 0.6 MG/DL (0.1-1.0); CREATININE SERUM 1.59 MG/DL (0.60-1.30); MAGNESIUM 2.5 MG/DL (1.8-2.4); POTASSIUM 4.6 MMOL/L (3.6-5.0); TOTAL PROTEIN 7.5 GM/DL (6.4-8.2)
[2018-08-04 17:13] LABS: INR 1.5 (0.8-1.4); PROTHROMBIN TIME PATIENT 18.4 SEC (12.2-14.7)
[2018-08-04 17:22] LABS: BAND NEUTROPHILS 3 %; BASOPHILS % (MANUAL) 0 %; EOSINOPHILS % (MANUAL) 0 %; LYMPHOCYTES % (MANUAL) 11 %; MONOCYTES % (MANUAL) 1 %; NEUTROPHILS % (MANUAL) 85 %; RBC MORPH NORMAL
[2018-08-04] MEDS ORDERED: FLU QUADRIvalent (5+ YOA) 2018-2019 (AFLURIA) 0.5 ML IM ONE (19:00)
[2018-08-04 19:39] VITALS: BP 98/59
[2018-08-04] MEDS: ACETAMINOPHEN 500 MG TAB (TYLENOL) PO PRN (19:58)
[2018-08-04] MEDS: 1/2 NS IV SOLUTION 1,000 ML IV SCH (20:01)
[2018-08-04 20:44] VITALS: BP 98/60
[2018-08-04] MEDS: APIXABAN 5 MG (ELIQUIS) TABLET PO SCH (20:44)
[2018-08-04] MEDS: meTOprolol TARTRATE 25 MG (LOPRESSOR) TABLET PO SCH (20:46)
[2018-08-04] MEDS ORDERED: RT-ALBUTEROL/IPRATROPIUM 3 ML (DUONEB) VIAL INH PRN (21:15)
[2018-08-04 22:00] VITALS: BP_SYST 106; BP_SYST 108; BP_DIAS 60; BP_DIAS 68
[2018-08-05] VITALS (9 sets, daily range): BP systolic 84–127; BP diastolic 48–68
[2018-08-05] MEDS ORDERED: ALBUMIN 25% 25 GM/100 ML 100 ML IV ONE ×2 (01:40→01:45)
[2018-08-05] MEDS: 1/2 NS IV SOLUTION 1,000 ML IV SCH ×3 (02:05→16:08)
[2018-08-05] MEDS: CEFEPIME INJECTION 2,000 MG in NS (IVPB) 50 ML IV SCH ×2 (05:07→17:24)
[2018-08-05] MEDS: methylPREDNISolone 40 MG/ML (Solu-MEDROL) VIAL IV SCH ×4 (05:08→23:16)
[2018-08-05 06:20] LABS: BASOPHILS % (AUTO) 0 % (0-10); EOSINOPHILS % (AUTO) 0 % (0-10); HEMATOCRIT 36 % (40-54); HEMOGLOBIN 12.8 G/DL (13.3-17.7); LYMPHOCYTES # (AUTO) 0.5 X 10^3 (1.0-4.0); LYMPHOCYTES % (AUTO) 5 % (12-44); MEAN CORPUSCULAR HEMOGLOBIN 29 PG (25-34); MEAN CORPUSCULAR HGB CONC 35 G/DL (32-36); MEAN CORPUSCULAR VOLUME 83 FL (80-99); MEAN PLATELET VOLUME 8.8 FL (7.4-10.4); MONOCYTES # (AUTO) 0.3 X 10^3 (0.0-1.0); MONOCYTES % (AUTO) 3 % (0-12); NEUTROPHILS % (AUTO) 92 % (42-75); PLATELET COUNT 245 10^3/uL (130-400); RED BLOOD COUNT 4.36 10^6/uL (4.35-5.85); RED CELL DISTRIBUTION WIDTH 14.1 % (10.0-14.5); WHITE BLOOD COUNT 9.8 10^3/uL (4.3-11.0)
[2018-08-05] MEDS: RT-ALBUTEROL/IPRATROPIUM 3 ML (DUONEB) VIAL INH SCH ×2 (06:39→18:39)
[2018-08-05 06:58] LABS: BUN/CREATININE RATIO 34; CALCIUM 8.9 MG/DL (8.5-10.1); CARBON DIOXIDE 18 MMOL/L (21-32); CHLORIDE 102 MMOL/L (98-107); CREATININE SERUM 1.01 MG/DL (0.60-1.30); GFR ESTIMATED > 60; GLUCOSE 125 MG/DL (70-105); MAGNESIUM 2.1 MG/DL (1.8-2.4); SODIUM 131 MMOL/L (135-145)
[2018-08-05] MEDS: IBUPROFEN 600 MG (MOTRIN) TAB PO PRN ×2 (07:25→22:38)
--- NOTE | 2018-08-05 07:53 | Diagnostic Imaging Report ---
Clinical indication: Patient with sepsis, followup pneumonia. Exam: Portable chest x-ray upright view. Comparisons: Chest x-ray dated 12/22/2017. Findings: There is interval development of small to moderate amount of diffuse infiltrate throughout the right lung which is most pronounced involving the medial right inferior perihilar region. Left lung is clear. There is no pleural effusion or pneumothorax. Pulmonary vasculature and cardiac silhouettes within normal limits. Bones show no significant interval abnormality. Impression: Interval development of right lung pneumonia. Dictated by: Dictated on workstation # [id number]
--- NOTE | 2018-08-05 08:30 | History & Physicial (CHS) ---
HPI History of Present Illness: 63 year old male directly admitted from [facility] yesterday afternoon after presenting with complaint of dizziness, fever, chills, and bodyaches since the evening of 08/01. On arrival at the [facility], the patient was noted to have a temp of 104.5, resp rate of 22, HR 86, blood pressure 110/70 and sat 94% on room air. CXR showed right PNA. Patient was transported to hospital by clinic staff and admitted for sepsis and right sided PNA. Labs were obtained, including blood cultures, and antibiotics for community acquired PNA were initiated. The patient was swabbed for influenza and strep in the clinic and records show that both were negative. The patient has RA and is on Marilyn. Source: patient, family, RN/MD, RN notes reviewed, old records Exam Limitations: no limitations Date seen by provider: Aug 05, 2018 Time Seen by Provider: 16:25 Attending Physician Jovana Peres DO PCP Lizbeth Knapp APRN Consult Date of Admission Aug 04, 2018 at 15:24 Home Medications Home Medications Reviewed patient Home Medication Reconciliation performed by pharmacy medication reconciliations desktop technician and/or nursing. Patients Allergies have been reviewed. Allergies Coded Allergies: No Known Drug Allergies (Unverified , 08/20/17) EPW-Nnwgdy-Ypsroh Hx Patient Social History Marrital Status: single Living Status: lives independently Employed/Student: employed Alcohol Use: Denies Use Recreational Drug Use: No Smoking Status: Current Someday Smoker 2nd Hand Smoke Exposure: Yes Recent Foreign Travel: No Contact w/other who traveled: No Recent Hopitalizations: No Recent Infectious Disease Expo: No Physical Abuse Screen: No Sexual Abuse: No Immunizations Up To Date Tetanus Booster (TDap): Unknown Date of Influenza Vaccine: Aug 05, 2017 Past Medical History PMHx: CAD with stent placement x 3 NSTEMI - 2015 HTN Hyperlipidemia Tobacco Abuse GERD Osteoarthritits Neuropathy Chronic Gastric Ulcer COPD with Panlobular Emphysema Chronic Afib Rheumatoid Arthritis, Right Hand [place] Spotted Fever - 2017 Past Surgical History: Heart Cath x2 Family Medical History Significant Family History: Diabetes, Hypertension Family History: Cardiovascular disease Cataracts Diabetes mellitus Glaucoma Hypertension Myocardial infarction Respiratory disorder Thyroid disease Visual disorder No Family History of: AIDS Abdominal aortic aneurysm Bells's disease Alcoholism Alzheimer's disease Aphasia Arthritis Asthma Cancer of mouth Colon cancer Completed stroke Congenital disease Congenital heart disease Coronary thrombosis Cystic fibrosis Deafness or hearing loss Dementia Drug abuse Dysphasia Fibrocystic disease of breast Gastroenteritis Headache disorder Hypercholesterolemia Infertility Kidney disease Neoplasm Not obtainable due to adoption Osteoporosis Parkinson's disease Prostate cancer Psychosocial problem Seizure disorder Severe allergy Tuberculosis Review of Systems ([facility]C) Constitutional: see HPI EENTM: no symptoms reported Respiratory: no symptoms reported Cardiovascular: no symptoms reported Gastrointestinal: no symptoms reported Genitourinary: no symptoms reported Musculoskeletal: no symptoms reported Skin: no symptoms reported Psychiatric/Neurological: No Symptoms Reported Reviewed Test Results Reviewed Test Results Lab Microbiology 08/04/18 Blood Culture - Preliminary, Resulted No growth 08/04/18 Blood Culture - Preliminary, Resulted No growth Laboratory Tests Test 08/04/18 15:45 08/04/18 16:28 08/04/18 16:40 08/05/18 06:00 Range/Units White Blood Count 10.7 9.8 4.3-11.0 10^3/uL Red Blood Count 4.49 4.36 4.35-5.85 10^6/uL Hemoglobin 13.2 L 12.8 L 13.3-17.7 G/DL Hematocrit 38 L 36 L 40-54 % Mean Corpuscular Volume 84 83 80-99 FL Mean Corpuscular Hemoglobin 29 29 25-34 PG Mean Corpuscular Hemoglobin Concent 35 35 32-36 G/DL Red Cell Distribution Width 14.4 14.1 10.0-14.5 % Platelet Count 304 245 130-400 10^3/uL Mean Platelet Volume 9.3 8.8 7.4-10.4 FL Neutrophils (%) (Auto) 84 H 92 H 42-75 % Lymphocytes (%) (Auto) 8 L 5 L 12-44 % Monocytes (%) (Auto) 9 3 0-12 % Eosinophils (%) (Auto) 0 0 0-10 % Basophils (%) (Auto) 0 0 0-10 % Neutrophils # (Auto) 9.0 H 9.0 H 1.8-7.8 X 10^3 Lymphocytes # (Auto) 0.8 L 0.5 L 1.0-4.0 X 10^3 Monocytes # (Auto) 0.9 0.3 0.0-1.0 X 10^3 Eosinophils # (Auto) 0.0 0.0 0.0-0.3 10^3/uL Basophils # (Auto) 0.0 0.0 0.0-0.1 10^3/uL Neutrophils % (Manual) 85 % Lymphocytes % (Manual) 11 % Monocytes % (Manual) 1 % Eosinophils % (Manual) 0 % Basophils % (Manual) 0 % Band Neutrophils 3 % Blood Morphology Comment NORMAL Sodium Level 127 L 131 L 135-145 MMOL/L Potassium Level 4.6 4.0 3.6-5.0 MMOL/L Chloride Level 97 L 102 98-107 MMOL/L Carbon Dioxide Level 16 L 18 L 21-32 MMOL/L Anion Gap 14 11 5-14 MMOL/L Blood Urea Nitrogen 39 H 34 H 7-18 MG/DL Creatinine 1.59 H 1.01 0.60-1.30 MG/DL Estimat Glomerular Filtration Rate 44 > 60 BUN/Creatinine Ratio 25 34 Glucose Level 101 125 H 70-105 MG/DL Calcium Level 9.0 8.9 8.5-10.1 MG/DL Corrected Calcium 9.5 8.5-10.1 MG/DL Magnesium Level 2.5 H 2.1 1.8-2.4 MG/DL Total Bilirubin 0.6 0.1-1.0 MG/DL Aspartate Amino Transf (AST/SGOT) 21 5-34 U/L Alanine Aminotransferase (ALT/SGPT) 15 0-55 U/L Alkaline Phosphatase 57 40-136 U/L C-Reactive Protein High Sensitivity 21.81 H 22.54 H 0.00-0.50 MG/DL Total Protein 7.5 6.4-8.2 GM/DL Albumin 3.4 3.2-4.5 GM/DL Lactic Acid Level 1.12 0.50-2.00 MMOL/L Prothrombin Time 18.4 H 12.2-14.7 SEC INR Comment 1.5 H 0.8-1.4 Activated Partial Thromboplast Time 39 H 24-35 SEC Test 08/06/18 04:22 Range/Units White Blood Count 10.9 4.3-11.0 10^3/uL Red Blood Count 3.92 L 4.35-5.85 10^6/uL Hemoglobin 11.2 L 13.3-17.7 G/DL Hematocrit 33 L 40-54 % Mean Corpuscular Volume 83 80-99 FL Mean Corpuscular Hemoglobin 29 25-34 PG Mean Corpuscular Hemoglobin Concent 34 32-36 G/DL Red Cell Distribution Width 14.4 10.0-14.5 % Platelet Count 247 130-400 10^3/uL Mean Platelet Volume 8.9 7.4-10.4 FL Neutrophils (%) (Auto) 91 H 42-75 % Lymphocytes (%) (Auto) 5 L 12-44 % Monocytes (%) (Auto) 4 0-12 % Eosinophils (%) (Auto) 0 0-10 % Basophils (%) (Auto) 0 0-10 % Neutrophils # (Auto) 9.9 H 1.8-7.8 X 10^3 Lymphocytes # (Auto) 0.6 L 1.0-4.0 X 10^3 Monocytes # (Auto) 0.4 0.0-1.0 X 10^3 Eosinophils # (Auto) 0.0 0.0-0.3 10^3/uL Basophils # (Auto) 0.0 0.0-0.1 10^3/uL Sodium Level 130 L 135-145 MMOL/L Potassium Level 3.9 3.6-5.0 MMOL/L Chloride Level 103 98-107 MMOL/L Carbon Dioxide Level 18 L 21-32 MMOL/L Anion Gap 9 5-14 MMOL/L Blood Urea Nitrogen 36 H 7-18 MG/DL Creatinine 1.06 0.60-1.30 MG/DL Estimat Glomerular Filtration Rate > 60 BUN/Creatinine Ratio 34 Glucose Level 133 H 70-105 MG/DL Calcium Level 8.7 8.5-10.1 MG/DL Magnesium Level 2.0 1.8-2.4 MG/DL C-Reactive Protein High Sensitivity 16.40 H 0.00-0.50 MG/DL Radiology Date of Exam: 08/05/18 CHEST 1 VIEW, AP/PA ONLY Clinical indication: Patient with sepsis, followup pneumonia. Exam: Portable chest x-ray upright view. Comparisons: Chest x-ray dated 12/22/2017. Findings: There is interval development of small to moderate amount of diffuse infiltrate throughout the right lung which is most pronounced involving the medial right inferior perihilar region. Left lung is clear. There is no pleural effusion or pneumothorax. Pulmonary vasculature and cardiac silhouettes within normal limits. Bones show no significant interval abnormality. Impression: Interval development of right lung pneumonia. Physical Exam-([facility]C) Physical Exam Vital Signs VS - Last 72 Hours, by Label 08/04/18 08/04/18 08/04/18 08/04/18 15:35 18:48 19:00 19:39 Temp 99.3 98.1 Pulse 68 58 59 Resp 20 20 B/P (MAP) 99/56 (70) 98/59 (72) Pulse Ox 94 95 92 O2 Delivery Room Air Room Air Room Air 08/04/18 08/04/18 08/04/18 08/04/18 20:00 20:44 21:04 22:00 Temp 97.3 Pulse 58 61 60 B/P (MAP) 98/60 (73) 106/60 (75) Pulse Ox 95 O2 Delivery Room Air 08/05/18 08/05/18 08/05/18 08/05/18 00:01 01:00 01:40 02:38 Temp 97.8 97.0 Pulse 53 47 51 60 Resp 18 B/P (MAP) 95/57 (70) 84/48 (60) 98/58 (71) Pulse Ox 94 O2 Delivery Room Air 08/05/18 08/05/18 08/05/18 08/05/18 04:31 06:50 07:00 07:17 Temp 99.7 102.1 Pulse 61 77 89 Resp 20 18 B/P (MAP) 106/58 (74) 127/65 (85) Pulse Ox 95 94 94 O2 Delivery Room Air Room Air Room Air 08/05/18 08/05/18 08/05/18 08/05/18 08:00 12:06 13:00 16:59 Temp 99.5 98.1 Pulse 67 68 54 Resp 18 16 B/P (MAP) 102/59 (73) 109/68 (82) Pulse Ox 95 94 O2 Delivery Room Air Room Air Room Air 08/05/18 08/05/18 08/05/18 08/05/18 18:40 18:59 20:00 20:06 Temp 98.8 Pulse 72 73 Resp 18 B/P (MAP) 105/58 (74) Pulse Ox 92 95 O2 Delivery Room Air Room Air Room Air 08/05/18 08/05/18 08/06/18 08/06/18 22:34 23:35 00:55 01:00 Temp 103.0 101.5 99.0 Pulse 81 56 Resp 18 B/P (MAP) 100/55 (70) Pulse Ox 92 O2 Delivery Room Air 08/06/18 08/06/18 08/06/18 08/06/18 03:15 07:00 08:00 08:52 Temp 98.4 98.7 Pulse 46 46 59 Resp 20 20 B/P (MAP) 100/59 (73) 110/60 (77) Pulse Ox 91 95 O2 Delivery Room Air Room Air Room Air 08/06/18 08/06/18 08/06/18 08/06/18 11:05 11:21 12:00 12:30 Temp 101.8 100.7 102.0 Pulse 79 Resp 22 B/P (MAP) 110/58 (75) Pulse Ox 90 90 O2 Delivery Room Air Room Air 08/06/18 08/06/18 12:30 13:00 Temp 102.0 Pulse 82 Capillary Refill : General Appearance: WD/WN, no apparent distress Eyes: Bilateral Eye Normal Inspection, Bilateral Eye EOMI HEENT: PERRL/EOMI, normal ENT inspection; No scleral icterus (R), No scleral icterus (L), No photophobia Neck: non-tender, full range of motion, supple, normal inspection Respiratory: chest non-tender, no respiratory distress, no accessory muscle use , decreased breath sounds Cardiovascular: no edema, no gallop, irregularly irregular Gastrointestinal: normal bowel sounds, non tender, soft, no organomegaly, no pulsatile mass Rectal: deferred Back: normal inspection, no CVA tenderness, no vertebral tenderness Extremities: normal range of motion, normal inspection, no pedal edema, no calf tenderness, normal capillary refill Neurologic/Psychiatric: casting director II-XII nml as tested, no motor/sensory deficits, alert, normal mood/affect, oriented x 3 Skin: normal color, warm/dry Assessment/Plan Assessment/Plan Admission Dx Sepsis Right sided PNA Immunosuppression Rheumatoid Arthritis COPD Tobacco Abuse Acute Renal Insufficiency Hypermagnesemia Chronic Atrial Fibrillation Admission Status: Inpatient Order (span 2 midnights) Reason for Inpatient Admission: IV abx, sepsis treatment Assessment & Plan Sepsis, Right sided PNA 08/05 -CAP -Cefepime, Azithromycin Day 2 -Febrile this AM to 102.1, discussed that pt will need to be fever free for 24 hours prior to discharge -IV steroids -MAT protocol -pt with episode of hypotension overnight, given albumin and 1L fluid bolus, with improvement in blood pressure -CRP 21.81 --> 22.54 Immunosuppression, Rheumatoid Arthritis 08/05 -pt on Marilyn for RA -states he is due for his dose tomorrow; discussed that due to his illness, patient should not have Marilyn and would recommend holding dose for at least 7 days after discharge COPD, Tobacco Abuse -MAT protocol -cessation encouraged Acute Renal Insufficiency -Cr on admission 1.59 -improved after hydration, now WNL at 1.01 Hypermagnesemia -2.5 on admission -improved after hydration, now 2.1 Chronic Atrial Fibrillation -telmetry -continue cardizem 240 mg -hold metoprolol due to above mentioned hypotension -continue home eliquis 5 mg BID DVT PPx: -pt on chronic anticoagulation, continue home eliquis Diet: Heart Healthy Condition: Fair Dispo: Continue IV abx and admission until pt afebrile for 24 hours; would recommend that pt not resume Marilyn until at least 7 days after discharge to given infection chance to heal, or as directed by his rib puller. Pt will require at least 2 midnights in the hospital for treatment. If he continues to improve and remains afebrile, he may be discharged as soon as tomorrow, although given that he is on Marilyn, it may take 2-3 additional days before patient is ready for discharge. Clinical Quality Measures DVT/VTE Risk/Contraindication: Risk Factor Score Per Nursin RFS Level Per Nursing on Admit: 4+=Very High Copy Copies To 1: [facility]/JOVANA AMEZQUITA DO Aug 05, 2018 08:30
[2018-08-05] MEDS: APIXABAN 5 MG (ELIQUIS) TABLET PO SCH ×2 (08:49→20:52)
[2018-08-05] MEDS: meTOprolol TARTRATE 25 MG (LOPRESSOR) TABLET PO SCH (08:49)
[2018-08-05] MEDS: DILTIAZEM 240 MG (CARDIZEM CD) CAP PO SCH (08:49)
[2018-08-05] MEDS ORDERED: METO-333 PO (09:39)
[2018-08-05] MEDS ORDERED: OMEP20TA33 PO (09:39)
[2018-08-05] MEDS ORDERED: HYDR200T46 PO (09:39)
[2018-08-05] MEDS ORDERED: DILT240C PO (09:39)
[2018-08-05] MEDS ORDERED: ADAL40PE IM (09:39)
[2018-08-05] MEDS ORDERED: APIX5TAB PO (09:39)
[2018-08-05] MEDS ORDERED: MOME13HF3 INH (09:39)
[2018-08-05] MEDS: oxyCODONE/APAP 5/325MG (PERCOCET 5) TABLET PO PRN (20:52)
[2018-08-06] MEDS: 1/2 NS IV SOLUTION 1,000 ML IV SCH ×3 (02:40→23:09)
[2018-08-06 03:15] VITALS: BP 100/59
[2018-08-06 04:41] LABS: BASOPHILS % (AUTO) 0 % (0-10); EOSINOPHILS % (AUTO) 0 % (0-10); HEMATOCRIT 33 % (40-54); HEMOGLOBIN 11.2 G/DL (13.3-17.7); LYMPHOCYTES # (AUTO) 0.6 X 10^3 (1.0-4.0); LYMPHOCYTES % (AUTO) 5 % (12-44); MEAN CORPUSCULAR HEMOGLOBIN 29 PG (25-34); MEAN CORPUSCULAR HGB CONC 34 G/DL (32-36); MEAN CORPUSCULAR VOLUME 83 FL (80-99); MEAN PLATELET VOLUME 8.9 FL (7.4-10.4); MONOCYTES # (AUTO) 0.4 X 10^3 (0.0-1.0); MONOCYTES % (AUTO) 4 % (0-12); NEUTROPHILS # (AUTO) 9.9 X 10^3 (1.8-7.8); NEUTROPHILS % (AUTO) 91 % (42-75); PLATELET COUNT 247 10^3/uL (130-400); RED BLOOD COUNT 3.92 10^6/uL (4.35-5.85); RED CELL DISTRIBUTION WIDTH 14.4 % (10.0-14.5); WHITE BLOOD COUNT 10.9 10^3/uL (4.3-11.0)
[2018-08-06 05:07] LABS: BUN/CREATININE RATIO 34; CALCIUM 8.7 MG/DL (8.5-10.1); CARBON DIOXIDE 18 MMOL/L (21-32); CHLORIDE 103 MMOL/L (98-107); CREATININE SERUM 1.06 MG/DL (0.60-1.30); GFR ESTIMATED > 60; GLUCOSE 133 MG/DL (70-105); POTASSIUM 3.9 MMOL/L (3.6-5.0); SODIUM 130 MMOL/L (135-145)
[2018-08-06] MEDS: CEFEPIME INJECTION 2,000 MG in NS (IVPB) 50 ML IV SCH ×2 (05:40→17:01)
[2018-08-06] MEDS: methylPREDNISolone 40 MG/ML (Solu-MEDROL) VIAL IV SCH ×4 (05:40→23:08)
[2018-08-06] MEDS: PANTOPRAZOLE 20 MG TABLET (PROTONIX) PO SCH (05:40)
--- NOTE | 2018-08-06 08:18 | Progress Note (SOAP) ---
Subjective Subjective/Events-last exam Tmax 103 last night. Bradycardia while asleep, resolved when patient awakened. Patient reports feeling ok, other than back pain from being in bed, and chills when he has fever. Blood pressure WNL, but pt has not taken metoprolol since yesterday morning. Review of Systems Date Seen by Provider: Aug 06, 2018 Time Seen by Provider: 11:50 General: Chills; No Appetite HEENT: No Head Aches, No Dysphasia Pulmonary: No Dyspnea; Cough Cardiovascular: No: Chest Pain, Palpitations Gastrointestinal: No: Nausea, Vomiting Genitourinary: No Dysuria, No Hematuria Musculoskeletal: back pain Neurological: No: Incoordination, Change in speech, Seizures Focused Exam Lactate Level 08/04/18 16:28: Lactic Acid Level 1.12 Objective Exam Last Set of Vital Signs Vital Signs Date Time Temp Pulse Resp B/P (MAP) Pulse Ox O2 Delivery O2 Flow Rate FiO2 08/06/18 07:00 46 08/06/18 03:15 98.4 20 100/59 (73) 91 Room Air Capillary Refill : I&O Intake and Output 08/06/18 00:00 Intake Total 2010 ml Balance 2009 ml Intake Oral 860 ml IV Total 1150 ml # Voids 8 General: Alert, Oriented X3, Cooperative, No Acute Distress HEENT: Atraumatic, EOMI, Mucous Memb Moist/[place] Neck: Supple, No Thyromegaly Lungs: Other (coarseness on right, diminished on left) Heart: Normal S1, Normal S2, Other (irregularly irregular) Abdomen: Normal Bowel Sounds, Soft, No Tenderness Extremities: No Cyanosis, Normal Pulses Skin: No Rashes, No Significant Lesion Neuro: Normal Speech, Normal Tone, Sensation Intact, Cranial Nerves 3-12 NL Psych/Mental Status: Mental Status NL, Mood NL Results/Procedures Lab Laboratory Tests 08/06/18 04:22: White Blood Count 10.9, Red Blood Count 3.92L, Hemoglobin 11.2L, Hematocrit 33L , Mean Corpuscular Volume 83, Mean Corpuscular Hemoglobin 29, Mean Corpuscular Hemoglobin Concent 34, Red Cell Distribution Width 14.4, Platelet Count 247, Mean Platelet Volume 8.9, Neutrophils (%) (Auto) 91H, Lymphocytes (%) (Auto) 5L , Monocytes (%) (Auto) 4, Eosinophils (%) (Auto) 0, Basophils (%) (Auto) 0, Neutrophils # (Auto) 9.9H, Lymphocytes # (Auto) 0.6L, Monocytes # (Auto) 0.4, Eosinophils # (Auto) 0.0, Basophils # (Auto) 0.0, Sodium Level 130L, Potassium Level 3.9, Chloride Level 103, Carbon Dioxide Level 18L, Anion Gap 9, Blood Urea Nitrogen 36H, Creatinine 1.06, Estimat Glomerular Filtration Rate > 60, BUN /Creatinine Ratio 34, Glucose Level 133H, Calcium Level 8.7, Magnesium Level 2.0 , C-Reactive Protein High Sensitivity 16.40H Microbiology 08/04/18 Blood Culture - Preliminary, Resulted No growth Assessment/Plan Assessment/Plan Assessment & Plan Sepsis, Right sided PNA 08/05 -CAP -Cefepime, Azithromycin Day 2 -Febrile this AM to 102.1, discussed that pt will need to be fever free for 24 hours prior to discharge -IV steroids -MAT protocol -pt with episode of hypotension overnight, given albumin and 1L fluid bolus, with improvement in blood pressure -CRP 21.81 --> 22.54 08/06 -Cefepime, Azithromycin Day 3 -hypotension resolved after metoprolol held -Febrile overnight and this AM, currently afebrile; discussed with pt that he needs to be afebrile for 24 hours prior to discharge -CRP 21.81 --> 22.54 --> 16.4 Immunosuppression, Rheumatoid Arthritis 08/05 -pt on Marilyn for RA -states he is due for his dose tomorrow; discussed that due to his illness, patient should not have Marilyn and would recommend holding dose for at least 7 days after discharge COPD, Tobacco Abuse -MAT protocol -cessation encouraged Acute Renal Insufficiency -Cr on admission 1.59 -improved after hydration, now WNL at 1.01 08/06 -Cr remains WNL -RESOLVED Hypermagnesemia -2.5 on admission -improved after hydration, now 2.1 Chronic Atrial Fibrillation -telmetry -continue cardizem 240 mg -hold metoprolol due to above mentioned hypotension -continue home eliquis 5 mg BID 08/06 -continue to hold metoprolol Hyponatremia 08/06 -131 --> 130 -asymptomatic and stable -if pt has not had, recommend pt get screening CT for lung cancer DVT PPx: -pt on chronic anticoagulation, continue home eliquis Diet: Heart Healthy Condition: Fair Dispo: Continue IV abx and admission until pt afebrile for 24 hours; would recommend that pt not resume Marilyn until at least 7 days after discharge to given infection chance to heal, or as directed by his kiln remover. Clinical Quality Measures DVT/VTE Risk/Contraindication: Risk Factor Score Per Nursin RFS Level Per Nursing on Admit: 4+=Very High Copy Copies To 1: GELY DIAZ MD, MARGARET E DO Aug 06, 2018 08:18
[2018-08-06] MEDS: DILTIAZEM 240 MG (CARDIZEM CD) CAP PO SCH (08:46)
[2018-08-06] MEDS: APIXABAN 5 MG (ELIQUIS) TABLET PO SCH ×2 (08:46→20:31)
[2018-08-06 08:52] VITALS: BP 110/60
[2018-08-06] MEDS ORDERED: NON-FORMULARY MEDICATION 1 EA EA (Omeprazole Magnesium (Prilosec Otc) 20 MG) PO SCH (09:00)
[2018-08-06] MEDS: ACETAMINOPHEN 500 MG TAB (TYLENOL) PO PRN ×2 (11:05→23:49)
[2018-08-06] MEDS: RT-ALBUTEROL/IPRATROPIUM 3 ML (DUONEB) VIAL INH SCH ×2 (11:21→19:44)
[2018-08-06 12:00] VITALS: BP 110/58
[2018-08-06] MEDS: oxyCODONE/APAP 5/325MG (PERCOCET 5) TABLET PO PRN ×2 (12:02→16:28)
[2018-08-06] MEDS: IBUPROFEN 600 MG (MOTRIN) TAB PO PRN ×2 (12:55→13:38)
[2018-08-06 16:15] VITALS: BP 100/62
[2018-08-06 20:20] VITALS: BP 115/58
[2018-08-07] VITALS: BP 118/58
[2018-08-07] MEDS: IBUPROFEN 600 MG (MOTRIN) TAB PO PRN ×2 (02:34→10:55)
[2018-08-07 03:57] LABS: BASOPHILS % (AUTO) 0 % (0-10); EOSINOPHILS % (AUTO) 0 % (0-10); HEMATOCRIT 33 % (40-54); LYMPHOCYTES # (AUTO) 0.3 X 10^3 (1.0-4.0); LYMPHOCYTES % (AUTO) 3 % (12-44); MEAN CORPUSCULAR HEMOGLOBIN 30 PG (25-34); MEAN CORPUSCULAR HGB CONC 36 G/DL (32-36); MEAN CORPUSCULAR VOLUME 82 FL (80-99); MEAN PLATELET VOLUME 9.3 FL (7.4-10.4); MONOCYTES # (AUTO) 0.5 X 10^3 (0.0-1.0); MONOCYTES % (AUTO) 4 % (0-12); NEUTROPHILS # (AUTO) 12.5 X 10^3 (1.8-7.8); NEUTROPHILS % (AUTO) 94 % (42-75); PLATELET COUNT 280 10^3/uL (130-400); RED BLOOD COUNT 4.06 10^6/uL (4.35-5.85); RED CELL DISTRIBUTION WIDTH 14.4 % (10.0-14.5); WHITE BLOOD COUNT 13.3 10^3/uL (4.3-11.0)
[2018-08-07 04:28] VITALS: BP 111/57
[2018-08-07 04:29] LABS: BUN/CREATININE RATIO 27; CALCIUM 8.7 MG/DL (8.5-10.1); CARBON DIOXIDE 14 MMOL/L (21-32); CHLORIDE 103 MMOL/L (98-107); CREATININE SERUM 1.03 MG/DL (0.60-1.30); GFR ESTIMATED > 60; GLUCOSE 131 MG/DL (70-105); POTASSIUM 3.7 MMOL/L (3.6-5.0); SODIUM 129 MMOL/L (135-145)
[2018-08-07] MEDS: PANTOPRAZOLE 20 MG TABLET (PROTONIX) PO SCH (05:48)
[2018-08-07] MEDS: methylPREDNISolone 40 MG/ML (Solu-MEDROL) VIAL IV SCH ×2 (05:48→12:10)
[2018-08-07] MEDS: CEFEPIME INJECTION 2,000 MG in NS (IVPB) 50 ML IV SCH (05:49)
[2018-08-07 07:55] VITALS: BP 120/61
[2018-08-07] MEDS: APIXABAN 5 MG (ELIQUIS) TABLET PO SCH (07:56)
[2018-08-07] MEDS: DILTIAZEM 240 MG (CARDIZEM CD) CAP PO SCH (07:56)
--- NOTE | 2018-08-07 08:20 | Diagnostic Imaging Report ---
INDICATION: Pneumonia. Exam compared 08/05/2018. FINDINGS: There is pneumonia in the right lung having improved from the previous exam. Left lung clear. There is background COPD chronic. No evidence for pleural fluid. No pneumothorax. IMPRESSION: Background COPD chronic with reduction in severity of right lung pneumonia. Dictated by: Dictated on workstation # [id number]
[2018-08-07] MEDS: RT-ALBUTEROL/IPRATROPIUM 3 ML (DUONEB) VIAL INH SCH (08:53)
[2018-08-07] MEDS: oxyCODONE/APAP 5/325MG (PERCOCET 5) TABLET PO PRN (10:51)
[2018-08-07] MEDS: 1/2 NS IV SOLUTION 1,000 ML IV SCH (10:52)
[2018-08-07 12:35] VITALS: BP 118/62
--- NOTE | 2018-08-07 13:24 | Discharge Summary ---
Diagnosis/Chief Complaint Date of Admission Aug 04, 2018 at 15:24 Date of Discharge 08/07/18 Admission Diagnosis Admission Diagnosis Sepsis Right sided PNA Immunosuppression Rheumatoid Arthritis COPD Tobacco Abuse Acute Renal Insufficiency Hypermagnesemia Chronic Atrial Fibrillation Discharge Diagnosis Sepsis, Right sided PNA 08/05 -CAP -Cefepime, Azithromycin Day 2 -Febrile this AM to 102.1, discussed that pt will need to be fever free for 24 hours prior to discharge -IV steroids -MAT protocol -pt with episode of hypotension overnight, given albumin and 1L fluid bolus, with improvement in blood pressure -CRP 21.81 --> 22.54 08/06 -Cefepime, Azithromycin Day 3 -hypotension resolved after metoprolol held -Febrile overnight and this AM, currently afebrile; discussed with pt that he needs to be afebrile for 24 hours prior to discharge -CRP 21.81 --> 22.54 --> 16.4 08/07 -Cefepime, Azithromycin Day 4 -blood pressure stable -afebrile x24 hours at the time of exam and requesting discharge -CXR improved, able to maintain sats of >90% off O2 -discharge home on PO abx, remainder of prednisone burst, pain medication on temporary basis until can resume Marilyn Immunosuppression, Rheumatoid Arthritis 08/05 -pt on Marilyn for RA -states he is due for his dose tomorrow; discussed that due to his illness, patient should not have Marilyn and would recommend holding dose for at least 7 days after discharge 08/07 -recommend hold Marilyn for at least 7 days or as directed by rheumatology; contact rheumatology after discharge for their recommendations COPD, Tobacco Abuse -MAT protocol -cessation encouraged 08/07 -encouraged continued cessation -recommend screening ct for lung cancer if not yet done Acute Renal Insufficiency -Cr on admission 1.59 -improved after hydration, now WNL at 1.01 08/06 -Cr remains WNL -RESOLVED Hypermagnesemia -2.5 on admission -improved after hydration, now 2.1 Chronic Atrial Fibrillation -telmetry -continue cardizem 240 mg -hold metoprolol due to above mentioned hypotension -continue home eliquis 5 mg BID 08/06 -continue to hold metoprolol 08/07 -continue cardizem and eliquis, hold metoprolol until seen in follow up; contact clinic if having symptoms of hypertension prior to follow up appt Hyponatremia 08/06 -131 --> 130 -asymptomatic and stable -if pt has not had, recommend pt get screening CT for lung cancer DVT PPx: -pt on chronic anticoagulation, continue home eliquis Dispo: Afebrile for 24 hours and requesting discharge. Discharge home, PO antibiotics. Continue to hold metoprolol until seen at follow up appt Chief Complaint/HPI Chief Complaint/HPI 63 year old male directly admitted from walk in clinic yesterday afternoon after presenting with complaint of dizziness, fever, chills, and bodyaches since the evening of 08/01. On arrival at the walk in clinic, the patient was noted to have a temp of 104.5, resp rate of 22, HR 86, blood pressure 110/70 and sat 94% on room air. CXR showed right PNA. Patient was transported to hospital by clinic staff and admitted for sepsis and right sided PNA. Labs were obtained, including blood cultures, and antibiotics for community acquired PNA were initiated. The patient was swabbed for influenza and strep in the clinic and records show that both were negative. The patient has RA and is on Marilyn. Discharge Summary-Simple/Stand Consultations Discharge Physical Examination Allergies: Coded Allergies: No Known Drug Allergies (Unverified , 08/20/17) Vitals & I&Os Vital Sign - Last 12Hours Date Time Temp Pulse Resp B/P (MAP) Pulse Ox O2 Delivery O2 Flow Rate FiO2 08/07/18 13:00 53 08/07/18 12:35 99.5 20 118/62 (80) 96 Nasal Cannula 2.00 Intake and Output 08/07/18 00:00 Intake Total 4930 ml Balance 4930 ml General Appearance: Alert, Oriented X3, Cooperative, No Acute Distress HEENT: Atraumatic, EOMI, Mucous Memb Moist/[place] Respiratory: Other (diminished, coarseness on right improved, scattered wheezing) Cardiovascular: Normal S1, Normal S2, Other (irregularly irregular) Abdominal: Normal Bowel Sounds, Soft, No Tenderness, No Masses Extremities: No Cyanosis, No Edema Skin: No Rashes, No Significant Lesion Neuro: Normal Speech, Normal Tone, Sensation Intact, Cranial Nerves 3-12 NL Psych/Mental Status: Mental Status NL, Mood NL Hospital Course See final discharge diagnosis. Labs Laboratory Tests Test 08/06/18 04:22 08/07/18 03:10 Range/Units White Blood Count 10.9 13.3 H 4.3-11.0 10^3/uL Red Blood Count 3.92 L 4.06 L 4.35-5.85 10^6/uL Hemoglobin 11.2 L 12.0 L 13.3-17.7 G/DL Hematocrit 33 L 33 L 40-54 % Mean Corpuscular Volume 83 82 80-99 FL Mean Corpuscular Hemoglobin 29 30 25-34 PG Mean Corpuscular Hemoglobin Concent 34 36 32-36 G/DL Red Cell Distribution Width 14.4 14.4 10.0-14.5 % Platelet Count 247 280 130-400 10^3/uL Mean Platelet Volume 8.9 9.3 7.4-10.4 FL Neutrophils (%) (Auto) 91 H 94 H 42-75 % Lymphocytes (%) (Auto) 5 L 3 L 12-44 % Monocytes (%) (Auto) 4 4 0-12 % Eosinophils (%) (Auto) 0 0 0-10 % Basophils (%) (Auto) 0 0 0-10 % Neutrophils # (Auto) 9.9 H 12.5 H 1.8-7.8 X 10^3 Lymphocytes # (Auto) 0.6 L 0.3 L 1.0-4.0 X 10^3 Monocytes # (Auto) 0.4 0.5 0.0-1.0 X 10^3 Eosinophils # (Auto) 0.0 0.0 0.0-0.3 10^3/uL Basophils # (Auto) 0.0 0.0 0.0-0.1 10^3/uL Sodium Level 130 L 129 L 135-145 MMOL/L Potassium Level 3.9 3.7 3.6-5.0 MMOL/L Chloride Level 103 103 98-107 MMOL/L Carbon Dioxide Level 18 L 14 L 21-32 MMOL/L Anion Gap 9 12 5-14 MMOL/L Blood Urea Nitrogen 36 H 28 H 7-18 MG/DL Creatinine 1.06 1.03 0.60-1.30 MG/DL Estimat Glomerular Filtration Rate > 60 > 60 BUN/Creatinine Ratio 34 27 Glucose Level 133 H 131 H 70-105 MG/DL Calcium Level 8.7 8.7 8.5-10.1 MG/DL Magnesium Level 2.0 2.0 1.8-2.4 MG/DL C-Reactive Protein High Sensitivity 16.40 H 19.19 H 0.00-0.50 MG/DL Radiology Reviewed Date of Exam: 08/05/18 CHEST 1 VIEW, AP/PA ONLY Clinical indication: Patient with sepsis, followup pneumonia. Exam: Portable chest x-ray upright view. Comparisons: Chest x-ray dated 12/22/2017. Findings: There is interval development of small to moderate amount of diffuse infiltrate throughout the right lung which is most pronounced involving the medial right inferior perihilar region. Left lung is clear. There is no pleural effusion or pneumothorax. Pulmonary vasculature and cardiac silhouettes within normal limits. Bones show no significant interval abnormality. Impression: Interval development of right lung pneumonia. Discharge Condition at discharge stable Instructions to patient/family Please see electronic discharge instructions given to patient. Discharge Medications Reviewed and agree with Discharge Medication list on patient's Discharge Instruction sheet Clinical Quality Measures DVT/VTE Risk/Contraindication: Risk Factor Score Per Nursin RFS Level Per Nursing on Admit: 4+=Very High Copy Copies To 1: GELY DIAZ MD, MARGARET E DO Aug 07, 2018 13:24
[2018-08-07] MEDS ORDERED: AZIT250T12 PO (13:38)
[2018-08-07] MEDS ORDERED: OXYC1TAB87 PO (13:38)
[2018-08-07] MEDS ORDERED: PRD20T PO (13:38)
[2018-08-07] MEDS ORDERED: AMOX-358 PO (13:38)
--- NOTE | 2018-08-07 13:41 | Discharge Instructions ---
Discharge [facility] Discharge Medications New, Converted or Re-Newed RX: Transmitted to Pharmacy (Percocet Rx on patient' s chart) New Medications: Amoxicillin/Potassium Clav (Augmentin 875-125 Tablet) 1 Each Tablet 1 EACH PO BID WITH MEALS for 7 Days, #14 TAB 0 Refills Azithromycin (Azithromycin) 250 Mg Tablet 250 MG PO DAILY for 5 Days, #6 TAB 500 mg x1 day, then 250 mg daily until gone Prednisone (Prednisone) 20 Mg Tab 40 MG PO DAILY for 5 Days, #10 TAB 0 Refills Oxycodone HCl/Acetaminophen (Percocet 5-325 mg Tablet) 1 Each Tablet 1 TAB PO Q4H PRN for PAIN-MODERATE TO SEVERE for 5 Days, #30 TAB Continued Medications: Adalimumab (Humira) 40 Mg/0.8 Ml Pen.ij.kit 40 MG IM EVERY 2 WEEKS, EA Apixaban (Eliquis) 5 Mg Tablet 5 MG PO BID, TAB Diltiazem HCl (Diltiazem 24Hr ER) 240 Mg Cap.er.24h 240 MG PO DAILY, CAP Hydroxychloroquine Sulfate (Hydroxychloroquine Sulfate) 200 Mg Tablet 200 MG PO BID, TAB Mometasone Furoate (Asmanex Hfa) 13 Gm Hfa.aer.ad 1 PUFF INH BID PRN for SHORTNESS OF BREATH, INHALER Omeprazole Magnesium (Prilosec Otc) 20 Mg Tablet.dr 20 MG PO DAILY, TAB Discontinued Medications: Metoprolol Tartrate (Metoprolol Tartrate) 25 Mg Tablet 25 MG PO BID, TAB Patient Instructions Patient Instructions -take medications as prescribed -hold metoprolol until after follow up appointment -do not restart Marilyn until after follow up appointment and discussing with provider Goal/Follow Up Appt: Dr. Diaz 08/12/18 at 10:40 am Return to The Hospital For: chest pain or pressure, shortness of breath not controlled by your normal measures, pain uncontrolled by routine measures or prescribed medications, nausea or vomiting that makes you unable to keep down medications or clear liquids for more than 12-24 hours, if directed by solutions manager provider, or with any emergent complaints or concerns Activity & Diet Discharge Diet: Low Sodium Diet Activity as Tolerated: Yes Orders-Post D/C & Referrals Pneu Vac Indicated: Yes Copy Copies To 1: GELY DIAZ MD, MARGARET E DO Aug 07, 2018 13:41
== END 2018-08-07 14:20 | disposition home or self-care (01) | DRG 871 ==
LOC: UNDOADMIN 15:24 → 4TH 15:24
PROVIDERS: ADMIT Family Medicine; ATTEND Family Medicine
DX: A41.9 Sepsis, unspecified organism (principal); J18.9 Pneumonia, unspecified organism; I25.10 Atherosclerotic heart disease of native coronary artery without angina pectoris; I48.2 Chronic atrial fibrillation; M06.9 Rheumatoid arthritis, unspecified; N28.9 Disorder of kidney and ureter, unspecified; E83.41 Hypermagnesemia; F17.210 Nicotine dependence, cigarettes, uncomplicated; I10 Essential (primary) hypertension; E78.5 Hyperlipidemia, unspecified; K21.9 Gastro-esophageal reflux disease without esophagitis; J43.1 Panlobular emphysema; G62.9 Polyneuropathy, unspecified; I25.2 Old myocardial infarction; Z79.01 Long term (current) use of anticoagulants; Z95.5 Presence of coronary angioplasty implant and graft
CPT/HCPCS: 36415; 71045; 80048; 80053; 83605; 83735; 85007; 85025; 85027; 85610; 85730; 86141; 87040; 94640; 94760

== ENCOUNTER 2018-08-19 13:01 | Emergency (ER) | payer OTHER ==
[~2018-08-19] VITALS: Ht 185.4 cm; Wt 74.8 kg
[~2018-08-19 13:01] MED LIST changes: +ADAL40PE IM; +AMOX-358 PO; +AZIT250T12 PO; +DILT240C PO; +HYDR200T46 PO; +MOME13HF3 INH; +OMEP20TA33 PO
[2018-08-19 13:32] LABS: BASOPHILS % (AUTO) 0 % (0-10); EOSINOPHILS # (AUTO) 0.2 10^3/uL (0.0-0.3); EOSINOPHILS % (AUTO) 2 % (0-10); HEMATOCRIT 39 % (40-54); HEMOGLOBIN 12.6 G/DL (13.3-17.7); LYMPHOCYTES # (AUTO) 2.8 X 10^3 (1.0-4.0); LYMPHOCYTES % (AUTO) 29 % (12-44); MEAN CORPUSCULAR HEMOGLOBIN 28 PG (25-34); MEAN CORPUSCULAR HGB CONC 33 G/DL (32-36); MEAN CORPUSCULAR VOLUME 85 FL (80-99); MEAN PLATELET VOLUME 8.4 FL (7.4-10.4); MONOCYTES # (AUTO) 0.8 X 10^3 (0.0-1.0); MONOCYTES % (AUTO) 9 % (0-12); NEUTROPHILS # (AUTO) 5.9 X 10^3 (1.8-7.8); NEUTROPHILS % (AUTO) 61 % (42-75); PLATELET COUNT 499 10^3/uL (130-400); RED BLOOD COUNT 4.51 10^6/uL (4.35-5.85); RED CELL DISTRIBUTION WIDTH 15.4 % (10.0-14.5); WHITE BLOOD COUNT 9.7 10^3/uL (4.3-11.0)
[2018-08-19 13:45] LABS: ALANINE AMINOTRANSFERASE 25 U/L (0-55); ALBUMIN 3.4 GM/DL (3.2-4.5); ALKALINE PHOSPHATASE 111 U/L (40-136); BILIRUBIN,TOTAL 0.7 MG/DL (0.1-1.0); BUN/CREATININE RATIO 25; CALCIUM 8.7 MG/DL (8.5-10.1); CARBON DIOXIDE 22 MMOL/L (21-32); CHLORIDE 99 MMOL/L (98-107); CREATININE SERUM 1.08 MG/DL (0.60-1.30); GFR ESTIMATED > 60; GLUCOSE 91 MG/DL (70-105); LIPASE 22 U/L (8-78); MAGNESIUM 2.1 MG/DL (1.8-2.4); POTASSIUM 4.2 MMOL/L (3.6-5.0); SODIUM 132 MMOL/L (135-145); TOTAL PROTEIN 6.9 GM/DL (6.4-8.2)
[2018-08-19 13:50] LABS: INR 1.2 (0.8-1.4); PROTHROMBIN TIME PATIENT 15.4 SEC (12.2-14.7)
[2018-08-19 13:51] LABS: MYOGLOBIN SERUM 54.7 NG/ML (10.0-92.0)
--- NOTE | 2018-08-19 13:56 | Diagnostic Imaging Report ---
INDICATION: Abdominal pain and pneumonia. TIME OF EXAM: 01:38 p.m. Correlation is made with prior study from 08/07/2018. Heart size stable. Right basilar pneumonia persists and shows no significant change since prior study. Left lung remains clear. There is no effusion. No pneumothorax is seen. Emphysematous changes in both lungs are noted. IMPRESSION: Stable right basilar pneumonia when compared to examination from 08/07/2018. Dictated by: Dictated on workstation # [id number]
[2018-08-19] MEDS ORDERED: fentaNYL INJECTION 100 MCG/2 ML AMP IVP ONE (14:00)
[2018-08-19] MEDS ORDERED: FAMOTIDINE 20MG/2ML IV (PEPCID) IVP ONE (14:00)
--- NOTE | 2018-08-19 15:46 | Diagnostic Imaging Report ---
PROCEDURE: US gallbladder. TECHNIQUE: Multiple real-time grayscale images were obtained over the right upper quadrant in various projections. INDICATION: Epigastric pain. FINDINGS: The liver is normal in size. No discrete liver mass is identified. The portal vein is patent and shows normal direction of flow. The gallbladder is without stones or sludge. No wall thickening or biliary ductal dilatation is seen. The pancreas and right kidney are unremarkable. There is no ascites. IMPRESSION: Unremarkable gallbladder ultrasound. Dictated by: Dictated on workstation # [id number]
[2018-08-19] MEDS ORDERED: SUCR1TAB36 PO (16:42)
--- NOTE | 2018-08-19 16:42 | ED Abdominal Pain ---
General Chief Complaint: Abdominal/GI Problems Stated Complaint: ULCER PAIN Nursing Triage Note: PT STATES HX OF ULCERS, CC OF ABD PAIN FOR 2 HRS. RECENTLY IN [facility] WITH PNEUMONIA. Sepsis Screen: No Definite Risk Source of Information: Patient, Old Records Exam Limitations: No Limitations History of Present Illness Date Seen by Provider: Aug 19, 2018 Time Seen by Provider: 13:06 Initial Comments This patient arrives to the emergency room in distress clutching his lower chest complaining of abdominal pain. Patient reports he has a history of ulcers and believes that his pain is related to ulcers. He was recently treated for pneumonia and sepsis for which she was admitted to the hospital on August 04. He has recovered from that illness. He has been on some narcotic pain medications since his hospital admission he believes they may be responsible for his pain. He was constipated until he treated his constipation with Metamucil. Allergies and Home Medications Allergies Coded Allergies: No Known Drug Allergies (Unverified , 08/20/17) Home Medications Adalimumab 40 Mg/0.8 Ml Pen.ij.kit, 40 MG IM EVERY 2 WEEKS, (Reported) Amoxicillin/Potassium Clav 1 Each Tablet, 1 EACH PO BID WITH MEALS Prescribed by: LUZMA WATSON on 08/07/181337 Apixaban 5 Mg Tablet, 5 MG PO BID, (Reported) Azithromycin 250 Mg Tablet, 250 MG PO DAILY 500 mg x1 day, then 250 mg daily until gone Prescribed by: LUZMA WATSON on 08/07/181337 Diltiazem HCl 240 Mg Cap.er.24h, 240 MG PO DAILY, (Reported) Hydroxychloroquine Sulfate 200 Mg Tablet, 200 MG PO BID, (Reported) Mometasone Furoate 13 Gm Hfa.aer.ad, 1 PUFF INH BID PRN for SHORTNESS OF BREATH, (Reported) Omeprazole Magnesium 20 Mg Tablet.dr, 20 MG PO DAILY, (Reported) Oxycodone HCl/Acetaminophen 1 Each Tablet, 1 TAB PO Q4H PRN for PAIN-MODERATE TO SEVERE Prescribed by: LUZMA WATSON on 08/07/181337 Prednisone 20 Mg Tab, 40 MG PO DAILY Prescribed by: LUZMA WATSON on 08/07/181337 Sucralfate 1 Gm Tablet, 1 GM PO QID 30 minutes before meals and before bed. May crush and mixed with 10 mL water to make slurry for better effect. Prescribed by: AIDEE DEVI on 08/19/18 0780 Patient Home Medication List Home Medication List Reviewed: Yes Review of Systems Review of Systems Constitutional: no symptoms reported EENTM: No Symptoms Reported Respiratory: See HPI Cardiovascular: No Symptoms Reported Gastrointestinal: See HPI Genitourinary: No Symptoms Reported Musculoskeletal: no symptoms reported Skin: no symptoms reported Psychiatric/Neurological: No Symptoms Reported Endocrine: No Symptoms Reported Hematologic/Lymphatic: No Symptoms Reported Past Lqvuzew-Eevbsb-Oulpiq Hx Past Med/Social Hx: Reviewed Nursing Past Med/Soc Hx Patient Social History Alcohol Use: Denies Use Recreational Drug Use: No Smoking Status: Former Smoker Type Used: Cigarettes Former Smoker, Quit: Feb 02, 2018 2nd Hand Smoke Exposure: Yes Recent Foreign Travel: No Contact w/Someone Who Travel: No Recent Infectious Disease Expo: No Recent Hopitalizations: No Immunizations Up To Date Tetanus Booster (TDap): Unknown Date of Influenza Vaccine: Aug 05, 2017 Seasonal Allergies Seasonal Allergies: No Past Medical History Surgeries: Yes (CARDIAC CATH--STENTS X 3) Cardiac, Coronary Stent Respiratory: Yes Pneumonia, COPD Currently Using CPAP: No Currently Using BIPAP: No Cardiac: Yes (STENTS, cath,) Atrial Fibrillation, Coronary Artery Disease, Heart Attack, High Cholesterol, Hypertension Neurological: No Reproductive Disorders: No Sexually Transmitted Disease: No Genitourinary: No Gastrointestinal: Yes Gastroesophageal Reflux, Ulcer Musculoskeletal: Yes (SHOULDER, ELBOW, HAND PAIN, PAIN FROM [place] SPOTTED FEVER ) Arthritis Endocrine: No HEENT: No Cancer: No Psychosocial: No Integumentary: No Blood Disorders: No Adverse Reaction/Blood Tranf: No Family Medical History Cardiovascular disease Cataracts Diabetes mellitus Glaucoma Hypertension Myocardial infarction Respiratory disorder Thyroid disease Visual disorder No Family History of: AIDS Abdominal aortic aneurysm Allegany's disease Alcoholism Alzheimer's disease Aphasia Arthritis Asthma Cancer of mouth Colon cancer Completed stroke Congenital disease Congenital heart disease Coronary thrombosis Cystic fibrosis Deafness or hearing loss Dementia Drug abuse Dysphasia Fibrocystic disease of breast Gastroenteritis Headache disorder Hypercholesterolemia Infertility Kidney disease Neoplasm Not obtainable due to adoption Osteoporosis Parkinson's disease Prostate cancer Psychosocial problem Seizure disorder Severe allergy Tuberculosis Diabetes, Hypertension Physical Exam Vital Signs Vital Signs - First Documented 08/19/18 13:10 Temp 97.3 Pulse 69 Resp 22 B/P (MAP) 133/95 (108) Pulse Ox 97 O2 Delivery Room Air Capillary Refill : Less Than 3 Seconds Height/Weight/BMI Height: 6'1.00" Weight: 165lbs. 0.0oz. 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, no motor/sensory deficits, alert, normal mood/affect, oriented x 3 Skin: normal color, warm/dry Progress/Results/Core Measures Results/Orders Lab Results Laboratory Tests Test 08/19/18 13:15 Range/Units White Blood Count 9.7 4.3-11.0 10^3/uL Red Blood Count 4.51 4.35-5.85 10^6/uL Hemoglobin 12.6 L 13.3-17.7 G/DL Hematocrit 39 L 40-54 % Mean Corpuscular Volume 85 80-99 FL Mean Corpuscular Hemoglobin 28 25-34 PG Mean Corpuscular Hemoglobin Concent 33 32-36 G/DL Red Cell Distribution Width 15.4 H 10.0-14.5 % Platelet Count 499 H 130-400 10^3/uL Mean Platelet Volume 8.4 7.4-10.4 FL Neutrophils (%) (Auto) 61 42-75 % Lymphocytes (%) (Auto) 29 12-44 % Monocytes (%) (Auto) 9 0-12 % Eosinophils (%) (Auto) 2 0-10 % Basophils (%) (Auto) 0 0-10 % Neutrophils # (Auto) 5.9 1.8-7.8 X 10^3 Lymphocytes # (Auto) 2.8 1.0-4.0 X 10^3 Monocytes # (Auto) 0.8 0.0-1.0 X 10^3 Eosinophils # (Auto) 0.2 0.0-0.3 10^3/uL Basophils # (Auto) 0.0 0.0-0.1 10^3/uL Prothrombin Time 15.4 H 12.2-14.7 SEC INR Comment 1.2 0.8-1.4 Activated Partial Thromboplast Time 34 24-35 SEC Sodium Level 132 L 135-145 MMOL/L Potassium Level 4.2 3.6-5.0 MMOL/L Chloride Level 99 98-107 MMOL/L Carbon Dioxide Level 22 21-32 MMOL/L Anion Gap 11 5-14 MMOL/L Blood Urea Nitrogen 27 H 7-18 MG/DL Creatinine 1.08 0.60-1.30 MG/DL Estimat Glomerular Filtration Rate > 60 BUN/Creatinine Ratio 25 Glucose Level 91 70-105 MG/DL Calcium Level 8.7 8.5-10.1 MG/DL Corrected Calcium 9.2 8.5-10.1 MG/DL Magnesium Level 2.1 1.8-2.4 MG/DL Total Bilirubin 0.7 0.1-1.0 MG/DL Aspartate Amino Transf (AST/SGOT) 10 5-34 U/L Alanine Aminotransferase (ALT/SGPT) 25 0-55 U/L Alkaline Phosphatase 111 40-136 U/L Myoglobin 54.7 10.0-92.0 NG/ML Troponin I < 0.30 <0.30 NG/ML Total Protein 6.9 6.4-8.2 GM/DL Albumin 3.4 3.2-4.5 GM/DL Lipase 22 8-78 U/L My Orders Orders - AIDEE JUNIOR MD Cbc With Automated Diff (08/19/18 13:) Magnesium (08/19/18 13:) Chest 1 View, Ap/Pa Only (08/19/18:) Ekg Tracing (08/19/18:) Cardiac Profile 1 (08/19/18:) Comprehensive Metabolic Panel (08/19/18 13:) Myoglobin Serum (08/19/18 13:) Protime With Inr (08/19/18:) Partial Thromboplastin Time (08/19/18:) O2 (08/19/18:) Monitor-Rhythm Ecg Trace Only (08/19/18:) Saline Lock/Iv-Start (08/19/18:) Lipase (08/19/18:) Fentanyl Injection (Sublimaze Injection (08/19/18 14:00) Famotidine Injection (Pepcid Injection) (08/19/18 14:00) Us Gallbladder [id number] (08/19/18 13:54) Medications Given in ED Current Medications Medications Dose Ordered Sig/Keegan Route Start Time Stop Time Status Last Admin Dose Admin Famotidine 20 mg ONCE ONCE IVP 08/19/18 14:00 08/19/18 14:01 DC 08/19/18 14:00 20 MG Fentanyl Citrate 50 mcg ONCE ONCE IVP 08/19/18 14:00 08/19/18 14:01 DC 08/19/18 14:00 50 MCG Vital Signs/I&O 08/19/18 08/19/18 08/19/18 13:10 14:00 16:52 Temp 97.3 97.3 97.3 Pulse 69 60 Resp 22 18 B/P (MAP) 133/95 (108) 130/90 (103) Pulse Ox 97 97 O2 Delivery Room Air Room Air Blood Pressure Mean: 108 Progress Progress Note : Progress Note Patient was treated with Pepcid and fentanyl. Initially it was difficult to determine if his pain was in the chest or epigastrium. Chest pain orders were also executed. Ultrasound of the gallbladder was obtained. By the time ultrasound was completed pain had resolved. Patient requested to dismissal. Carafate was added to his treatment for ulcer prevention. He was advised to follow-up with his primary care team. Initial ECG Impression Date: Aug 19, 2018 Initial ECG Impression Time: 13:11 Initial ECG Rate: 57 Initial ECG Rhythm: Normal Sinus Initial ECG Intervals: Normal Initial ECG Impression: Normal Comment Normal sinus rhythm with no ST elevation or depression. No abnormal intervals or axis deviation. Diagnostic Imaging Diagonstic Imaging: Ultrasound Plain Films/CT/US/NM/MRI: abdomen Comments Gallbladder ultrasound report reviewed. See report below: NAME: [facility] REC#: [id number] PT STATUS: REG ER : 1955 PHYSICIAN: AIDEE JUNIOR MD ADMIT DATE: 08/19/18/ER Signed Date of Exam: 08/19/18 US GALLBLADDER [id number] PROCEDURE: US gallbladder. TECHNIQUE: Multiple real-time grayscale images were obtained over the right upper quadrant in various projections. INDICATION: Epigastric pain. FINDINGS: The liver is normal in size. No discrete liver mass is identified. The portal vein is patent and shows normal direction of flow. The gallbladder is without stones or sludge. No wall thickening or biliary ductal dilatation is seen. The pancreas and right kidney are unremarkable. There is no ascites. IMPRESSION: Unremarkable gallbladder ultrasound. Dictated by: Dictated on workstation # [id number] Dict: 08/19/18 1543 Trans: 08/19/18 1552 Interpreted by: RICHI THOMPSON MD Electronically signed by: RICHI THOMPSON MD 08/19/18 155 Diagonstic Imaging: Xray Plain Films/CT/US/NM/MRI: chest Comments Chest x-ray viewed by me and report reviewed. See report below: NAME: [facility] REC#: [id number] PT STATUS: REG ER : 1955 PHYSICIAN: AIDEE JUNIOR MD ADMIT DATE: 08/19/18/ER Signed Date of Exam: 08/19/18 CHEST 1 VIEW, AP/PA ONLY INDICATION: Abdominal pain and pneumonia. TIME OF EXAM: 01:38 p.m. Correlation is made with prior study from 08/07/2018. Heart size stable. Right basilar pneumonia persists and shows no significant change since prior study. Left lung remains clear. There is no effusion. No pneumothorax is seen. Emphysematous changes in both lungs are noted. IMPRESSION: Stable right basilar pneumonia when compared to examination from 08/07/2018. Dictated by: Dictated on workstation # [id number] Dict: 08/19/18 1349 Trans: 08/19/18 1553 Interpreted by: RICHI THOMPSON MD Electronically signed by: RICHI THOMPSON MD 08/19/18 1552 Departure Impression Primary Impression: Epigastric pain Additional Impressions: Right lower lobe pneumonia Qualified Codes: J18.1 - Lobar pneumonia, unspecified organism History of stomach ulcers Disposition: HOME, SELF-CARE Condition: Improved Departure-Patient Inst. Decision time for Depature: 16:40 Referrals: GERHARD SIU DO (PCP) Primary Care Physician JORGE JACKSON (Family) Primary Care Physician Patient Instructions: Acute Abdomen (Belly Pain), Adult (DC) Add. Discharge Instructions: Continue taking your antacid medication as prescribed. Follow-up with your primary care provider in the next 1-2 weeks. Your doctor may wish to repeat an x-ray in the near future to ensure resolution of the pneumonia findings. Avoid the following: Eating large meals, eating close to bedtime, alcohol, tobacco, NSAID medications such as ibuprofen or naproxen, caffeine, carbonation , citrus fruits and juices, tomato products, spicy foods, fatty or greasy foods , mints, chocolate, or anything else you know irritates your stomach. You may wish to add Carafate as prescribed to further protect your stomach. All discharge instructions reviewed with patient and/or family. Voiced understanding. Scripts Sucralfate (Carafate) 1 Gm Tablet 1 GM PO QID, #120 TAB 30 minutes before meals and before bed. May crush and mixed with 10 mL water to make slurry for better effect. Prov: AIDEE JUNIOR MD 08/19/18 AIDEE JUNIOR MD Aug 19, 2018 16:42
[2018-08-19 16:52] VITALS: BP 130/90
== END 2018-08-19 16:51 | disposition home or self-care (01) ==
LOC: EDUNIT# 13:01 → ER 13:02
DX: R10.13 Epigastric pain (principal); J18.1 Lobar pneumonia, unspecified organism; J44.9 Chronic obstructive pulmonary disease, unspecified; I48.91 Unspecified atrial fibrillation; I25.10 Atherosclerotic heart disease of native coronary artery without angina pectoris; I25.2 Old myocardial infarction; E78.00 Pure hypercholesterolemia, unspecified; I10 Essential (primary) hypertension; K21.9 Gastro-esophageal reflux disease without esophagitis; Z82.49 Family history of ischemic heart disease and other diseases of the circulatory system; Z87.19 Personal history of other diseases of the digestive system; Z79.52 Long term (current) use of systemic steroids; Z79.01 Long term (current) use of anticoagulants; Z87.891 Personal history of nicotine dependence; Z95.5 Presence of coronary angioplasty implant and graft
CPT/HCPCS: 36415; 71045; 76705; 80053; 83690; 83735; 83874; 84484; 85025; 85610; 85730; 93005; 93041; 96374; 96375

== ENCOUNTER 2018-09-14 06:49 | Inpatient (IN) | payer OTHER ==
[~2018-09-14] VITALS: Ht 182.9 cm; Wt 70.8 kg
[~2018-09-14 06:49] MED LIST changes: -DILT240C63 PO; +DILT240C97 PO; +SUCR1TAB36 PO
[2018-09-14] MEDS ORDERED: ASPIRIN 81 MG CHEW (CHILDREN'S ASA) PO ONE (07:00)
[2018-09-14] MEDS ORDERED: NITROGLYCERIN 0.4 MG SL TABS BTL 25'S SL ONE (07:01)
[2018-09-14] MEDS ORDERED: morphine INJ 10 MG/ML 1ML (SYR OR VIAL) IVP STA (07:02)
[2018-09-14] MEDS ORDERED: morphine INJ 10 MG/ML 1ML (SYR OR VIAL) ONE (07:04)
[2018-09-14 07:06] LABS: BASOPHILS # (AUTO) 0.1 10^3/uL (0.0-0.1); BASOPHILS % (AUTO) 1 % (0-10); EOSINOPHILS # (AUTO) 0.3 10^3/uL (0.0-0.3); EOSINOPHILS % (AUTO) 2 % (0-10); HEMATOCRIT 39 % (40-54); LYMPHOCYTES # (AUTO) 2.9 X 10^3 (1.0-4.0); LYMPHOCYTES % (AUTO) 26 % (12-44); MEAN CORPUSCULAR HEMOGLOBIN 28 PG (25-34); MEAN CORPUSCULAR HGB CONC 33 G/DL (32-36); MEAN CORPUSCULAR VOLUME 84 FL (80-99); MEAN PLATELET VOLUME 8.3 FL (7.4-10.4); MONOCYTES % (AUTO) 9 % (0-12); NEUTROPHILS # (AUTO) 6.8 X 10^3 (1.8-7.8); NEUTROPHILS % (AUTO) 62 % (42-75); PLATELET COUNT 412 10^3/uL (130-400); RED BLOOD COUNT 4.65 10^6/uL (4.35-5.85); RED CELL DISTRIBUTION WIDTH 14.9 % (10.0-14.5); WHITE BLOOD COUNT 10.9 10^3/uL (4.3-11.0)
[2018-09-14] MEDS ORDERED: NITROGLYCERIN 0.4 MG SL TABS BTL 25'S SL PRN (07:15)
[2018-09-14 07:18] LABS: PROTHROMBIN TIME PATIENT 13.6 SEC (12.2-14.7)
[2018-09-14 07:29] LABS: ALANINE AMINOTRANSFERASE 19 U/L (0-55); ALBUMIN 3.6 GM/DL (3.2-4.5); ALKALINE PHOSPHATASE 101 U/L (40-136); BILIRUBIN,TOTAL 0.6 MG/DL (0.1-1.0); BUN/CREATININE RATIO 23; CALCIUM 9.7 MG/DL (8.5-10.1); CARBON DIOXIDE 20 MMOL/L (21-32); CHLORIDE 102 MMOL/L (98-107); GFR ESTIMATED > 60; GLUCOSE 116 MG/DL (70-105); MAGNESIUM 1.5 MG/DL (1.8-2.4); POTASSIUM 4.3 MMOL/L (3.6-5.0); SODIUM 136 MMOL/L (135-145); TOTAL PROTEIN 7.2 GM/DL (6.4-8.2)
--- NOTE | 2018-09-14 07:29 | ED Chest Pain ---
General Chief Complaint: Chest Pain Stated Complaint: CP,SOA Source: patient Exam Limitations: no limitations History of Present Illness Date Seen by Provider: Sep 14, 2018 Time Seen by Provider: 06:51 Initial Comments Here with report of central chest pain that started nonradiating and associated with shortness of breath and sweating. Onset at 530 this morning and worsening or persisting since. Denies nausea or vomiting. Does have history of CARDIAC procedures including stent and last ones placed approximately 4 years ago. Does take Eliquis daily as directed. Recently has had pneumonia but was reportedly better. Timing/Duration: 1 hour, getting worse Severity/Quality: moderate, severe, pressure Location: central Radiation: no radiation Activities at Onset: none Prior CP/Workup: cardiac cath, echocardiography Modifying Factors: improves with rest ASA po SITE LEAD: No NTG SL SITE LEAD: No Associated Symptoms: No abdominal pain, No back pain; diaphoresis; No fever/ chills, No nausea/vomiting; shortness of breath Allergies and Home Medications Allergies Coded Allergies: No Known Drug Allergies (Unverified , 08/20/17) Home Medications Adalimumab 40 Mg/0.8 Ml Pen.ij.kit, 40 MG IM EVERY 2 WEEKS, (Reported) Amoxicillin/Potassium Clav 1 Each Tablet, 1 EACH PO BID WITH MEALS Prescribed by: LUZMA WATSON on 08/07/18 1338 Apixaban 5 Mg Tablet, 5 MG PO BID, (Reported) Diltiazem HCl 240 Mg Cap.er.24h, 240 MG PO DAILY, (Reported) Hydroxychloroquine Sulfate 200 Mg Tablet, 200 MG PO BID, (Reported) Mometasone Furoate 13 Gm Hfa.aer.ad, 1 PUFF INH BID PRN for SHORTNESS OF BREATH, (Reported) Omeprazole Magnesium 20 Mg Tablet.dr, 20 MG PO DAILY, (Reported) Oxycodone HCl/Acetaminophen 1 Each Tablet, 1 TAB PO Q4H PRN for PAIN-MODERATE TO SEVERE Prescribed by: LUZMA WATSON on 08/07/18 1338 Sucralfate 1 Gm Tablet, 1 GM PO QID 30 minutes before meals and before bed. May crush and mixed with 10 mL water to make slurry for better effect. Prescribed by: AIDEE DEVI on 08/19/18 1642 Patient Home Medication List Home Medication List Reviewed: Yes Review of Systems Review of Systems Constitutional: see HPI; No chills, No fever EENTM: No Symptoms Reported Respiratory: See HPI, Cough, Shortness of Air Cardiovascular: Chest Pain; Denies Edema; Palpitations Gastrointestinal: Denies Nausea, Denies Vomiting Genitourinary: No Symptoms Reported Musculoskeletal: no symptoms reported Skin: no symptoms reported Psychiatric/Neurological: No Symptoms Reported All Other Systems Reviewed Negative Unless Noted: Yes Past Iagldkm-Rbrbhq-Pzojsa Hx Past Med/Social Hx: Reviewed Nursing Past Med/Soc Hx Patient Social History Alcohol Use: Denies Use Recreational Drug Use: No Smoking Status: Former Smoker Type Used: Cigarettes Former Smoker, Quit: Feb 02, 2018 2nd Hand Smoke Exposure: Yes Recent Foreign Travel: No Contact w/Someone Who Travel: No Recent Hopitalizations: No Immunizations Up To Date Tetanus Booster (TDap): Unknown Date of Influenza Vaccine: Aug 05, 2017 Seasonal Allergies Seasonal Allergies: No Past Medical History Surgeries: Yes (CARDIAC CATH--STENTS X 3) Cardiac, Coronary Stent Respiratory: Yes Pneumonia, COPD Currently Using CPAP: No Currently Using BIPAP: No Cardiac: Yes (STENTS, cath,) Atrial Fibrillation, Coronary Artery Disease, Heart Attack, High Cholesterol, Hypertension Neurological: No Reproductive Disorders: No Sexually Transmitted Disease: No Genitourinary: No Gastrointestinal: Yes Gastroesophageal Reflux, Ulcer Musculoskeletal: Yes (SHOULDER, ELBOW, HAND PAIN, PAIN FROM [place] SPOTTED FEVER ) Arthritis Endocrine: No HEENT: No Cancer: No Psychosocial: No Integumentary: No Blood Disorders: No Adverse Reaction/Blood Tranf: No Family Medical History Reviewed Nursing Family Hx Cardiovascular disease Cataracts Diabetes mellitus Glaucoma Hypertension Myocardial infarction Respiratory disorder Thyroid disease Visual disorder No Family History of: AIDS Abdominal aortic aneurysm Terry's disease Alcoholism Alzheimer's disease Aphasia Arthritis Asthma Cancer of mouth Colon cancer Completed stroke Congenital disease Congenital heart disease Coronary thrombosis Cystic fibrosis Deafness or hearing loss Dementia Drug abuse Dysphasia Fibrocystic disease of breast Gastroenteritis Headache disorder Hypercholesterolemia Infertility Kidney disease Neoplasm Not obtainable due to adoption Osteoporosis Parkinson's disease Prostate cancer Psychosocial problem Seizure disorder Severe allergy Tuberculosis Diabetes, Hypertension Physical Exam Vital Signs Vital Signs - First Documented 09/14/18 09/14/18 06:50 07:33 Temp 98.2 Pulse 99 Resp 18 B/P (MAP) 109/72 (84) Pulse Ox 96 O2 Delivery Room Air Capillary Refill : Height, Weight, BMI Height: 6'1.00" Weight: 165lbs. 0.0oz. 74.487430fy; 21.8 BMI Method:Stated General Appearance: Anxious, Moderate Distress HEENT: PERRL/EOMI, Pharynx Normal Neck: Non Tender, Supple Respiratory: Lungs Clear, Normal Breath Sounds Cardiovascular: No Murmur, Tachycardia Gastrointestinal: Non Tender, Soft Extremity: Normal Capillary Refill, Normal Inspection, Normal Range of Motion, Non Tender, No Calf Tenderness Neurologic/Psychiatric: Alert, Oriented x3 Skin: Normal Color, Warm/Dry Focused Exam Lactate Level 09/14/18 08:27: Lactic Acid Level 1.25 Lactic Acid Level Laboratory Tests Test 09/14/18 08:27 Lactic Acid Level 1.25 MMOL/L (0.50-2.00) Progress/Results/Core Measures Results/Orders Lab Results Laboratory Tests Test 09/14/18 06:58 09/14/18 08:27 Range/Units White Blood Count 10.9 4.3-11.0 10^3/uL Red Blood Count 4.65 4.35-5.85 10^6/uL Hemoglobin 13.0 L 13.3-17.7 G/DL Hematocrit 39 L 40-54 % Mean Corpuscular Volume 84 80-99 FL Mean Corpuscular Hemoglobin 28 25-34 PG Mean Corpuscular Hemoglobin Concent 33 32-36 G/DL Red Cell Distribution Width 14.9 H 10.0-14.5 % Platelet Count 412 H 130-400 10^3/uL Mean Platelet Volume 8.3 7.4-10.4 FL Neutrophils (%) (Auto) 62 42-75 % Lymphocytes (%) (Auto) 26 12-44 % Monocytes (%) (Auto) 9 0-12 % Eosinophils (%) (Auto) 2 0-10 % Basophils (%) (Auto) 1 0-10 % Neutrophils # (Auto) 6.8 1.8-7.8 X 10^3 Lymphocytes # (Auto) 2.9 1.0-4.0 X 10^3 Monocytes # (Auto) 1.0 0.0-1.0 X 10^3 Eosinophils # (Auto) 0.3 0.0-0.3 10^3/uL Basophils # (Auto) 0.1 0.0-0.1 10^3/uL Prothrombin Time 13.6 12.2-14.7 SEC INR Comment 1.0 0.8-1.4 Activated Partial Thromboplast Time 34 24-35 SEC D-Dimer 1.64 H 0.00-0.49 UG/ML Sodium Level 136 135-145 MMOL/L Potassium Level 4.3 3.6-5.0 MMOL/L Chloride Level 102 98-107 MMOL/L Carbon Dioxide Level 20 L 21-32 MMOL/L Anion Gap 14 5-14 MMOL/L Blood Urea Nitrogen 27 H 7-18 MG/DL Creatinine 1.20 0.60-1.30 MG/DL Estimat Glomerular Filtration Rate > 60 BUN/Creatinine Ratio 23 Glucose Level 116 H 70-105 MG/DL Calcium Level 9.7 8.5-10.1 MG/DL Corrected Calcium 10.0 8.5-10.1 MG/DL Magnesium Level 1.5 L 1.8-2.4 MG/DL Total Bilirubin 0.6 0.1-1.0 MG/DL Aspartate Amino Transf (AST/SGOT) 11 5-34 U/L Alanine Aminotransferase (ALT/SGPT) 19 0-55 U/L Alkaline Phosphatase 101 40-136 U/L Myoglobin 92.4 H 10.0-92.0 NG/ML Troponin I < 0.30 <0.30 NG/ML Total Protein 7.2 6.4-8.2 GM/DL Albumin 3.6 3.2-4.5 GM/DL Lactic Acid Level 1.25 0.50-2.00 MMOL/L My Orders Orders - CEE ALMONTE MD Cbc With Automated Diff (09/14/18 06:51) Magnesium (09/14/18 06:51) Chest 1 View, Ap/Pa Only (09/14/18 06:51) Ekg Tracing (09/14/18 06:51) Cardiac Profile 1 (09/14/18 06:51) Comprehensive Metabolic Panel (09/14/18 06:51) Myoglobin Serum (09/14/18 06:51) Protime With Inr (09/14/18 06:51) Partial Thromboplastin Time (09/14/18 06:51) O2 (09/14/18 06:51) Monitor-Rhythm Ecg Trace Only (09/14/18 06:51) Lipid Panel (09/15/18 06:00) Aspirin Chewable Tablet (Baby Aspirin Ch (09/14/18 07:00) Saline Lock/Iv-Start (09/14/18 06:51) Fibrin Degradation Products (09/14/18 07:00) Nitroglycerin 0.4 Mg Btl 25's (Nitrostat (09/14/18 07:15) Morphine Injection (Morphine Injection (09/14/18 07:02) Nitroglycerin 0.4 Mg Btl 25's (Nitrostat (09/14/18 07:01) Morphine Injection (Morphine Injection (09/14/18 07:04) Ct Angio Chest W (09/14/18 07:55) Saline Lock/Iv-Start (09/14/18 07:55) Ns Iv 1000 Ml (Sodium Chloride 0.9%) (09/14/18 07:55) Iohexol Injection (Omnipaque 350 Mg/Ml 1 (09/14/18 08:00) Contrast Received (Contrast Received) (09/14/18 08:00) Ns (Ivpb) (Sodium Chloride 0.9%) (09/14/18 08:00) Lactic Acid Analyzer (09/14/18 08:28) Blood Culture (09/14/18 08:28) Piperacillin Sodium/Tazobactam (Zosyn Vi (09/14/18 09:00) Medications Given in ED Current Medications Medications Dose Ordered Sig/Keegan Route Start Time Stop Time Status Last Admin Dose Admin Aspirin 324 mg ONCE ONCE PO 09/14/18 07:00 09/14/18 07:01 DC 09/14/18 07:08 324 MG Iohexol 125 ml ONCE ONCE IV 09/14/18 08:00 09/14/18 08:01 DC 09/14/18 08:11 125 ML Piperacillin Sod/ Tazobactam Sod 4.5 gm/Sodium Chloride 100 ml @ 200 mls/hr ONCE ONCE IV 09/14/18 09:00 09/14/18 09:29 DC 09/14/18 09:22 200 MLS/HR Sodium Chloride 250 ml ONCE ONCE IV 09/14/18 08:00 09/14/18 08:01 DC 09/14/18 08:12 80 ML Sodium Chloride 1,000 ml @ 0 mls/hr Q0M ONCE IV 09/14/18 07:55 09/14/18 07:56 DC 09/14/18 08:00 1,000 MLS/HR Vital Signs/I&O 09/14/18 09/14/18 06:50 07:33 Temp 98.2 Pulse 99 108 Resp 18 B/P (MAP) 109/72 (84) 100/70 (80) Pulse Ox 96 O2 Delivery Room Air Room Air Progress Progress Note : Progress Note Seen and evaluated. IV, labs, EKG and chest x-ray ordered. ASA 324 mg ordered. Nitroglycerin sublingual ordered but held due to low blood pressure. Morphine 4 mg IV for pain. Monitor patient. Blood cultures and lactic acid ordered due to x-ray findings. Monitor patient. 09: CT results note significant right lower lobe pneumonia. Zosyn 4.5 g IV has been ordered and has been initiated. I did discuss the case with Dr. Barger and she accepts patient for admission, inpatient status. Patient has failed outpatient therapy for pneumonia. Findings concerns discussed with patient who agrees with plan. Initial ECG Impression Date: Sep 14, 2018 Initial ECG Impression Time: 06:54 Initial ECG Rate: 105 Initial ECG Rhythm: S.Tach Initial ECG Comparisson: Changed Comment Sinus tachycardia with atrial premature complex. Normal axis. No evidence of ST elevation [place]. Similar to previous of 08/19/18. Interpreted by me. Diagnostic Imaging Diagonstic Imaging: Xray Plain Films/CT/US/NM/MRI: chest Comments [facility]IA [facility], [facility]. [place], [place] NAME: FE CONNOR [facility] REC#: [id number] PT STATUS: REG ER : 1955 PHYSICIAN: CEE ALMONTE MD ADMIT DATE: 09/14/18/ER Draft Date of Exam:09/14/18 CHEST 1 VIEW, AP/PA ONLY INDICATION: Chest pain and shortness of breath. COMPARISON: 08/19/2018. FINDINGS: The right basilar heterogeneous opacities have improved with a small amount of persistent opacities. Stable hyperaerated lung volume. Biapical subpleural scarring is unchanged. No new airspace disease. No pleural effusion or pneumothorax. The heart is normal in size. IMPRESSION: 1. No acute cardiopulmonary process. 2. Improving but incomplete resolution of the right basilar pneumonia. Dictated on workstation # [id number] Dict: 09/14/18 0743 Trans: 09/14/18 0746 [facility] [id number] Interpreted by: EVELINE BAILEY MD Electronically signed by: Departure Communication (Admissions) Time/Spoke to Admitting Phy: 09:20 Impression Primary Impression: Right lower lobe pneumonia Qualified Codes: J18.1 - Lobar pneumonia, unspecified organism Disposition: ADMITTED INPATIENT Condition: Stable Admissions Decision to Admit Reason: Admit from ER (General) Decision to Admit/Date: Sep 14, 2018 Time/Decision to Admit Time: 09:20 Departure-Patient Inst. Referrals: GERHARD SIU DO (PCP) Primary Care Physician JORGE JACKSON (Family) Primary Care Physician CEE ALMONTE MD Sep 14, 2018 07:29
[2018-09-14 07:33] VITALS: BP 100/70
[2018-09-14 07:46] LABS: MYOGLOBIN SERUM 92.4 NG/ML (10.0-92.0)
--- NOTE | 2018-09-14 07:47 | Diagnostic Imaging Report ---
INDICATION: Chest pain and shortness of breath. COMPARISON: 08/19/2018. FINDINGS: The right basilar heterogeneous opacities have improved with a small amount of persistent opacities. Stable hyperaerated lung volume. Biapical subpleural scarring is unchanged. No new airspace disease. No pleural effusion or pneumothorax. The heart is normal in size. IMPRESSION: 1. No acute cardiopulmonary process. 2. Improving but incomplete resolution of the right basilar pneumonia. Dictated by: Dictated on workstation # [id number]
[2018-09-14] MEDS ORDERED: NS IV 1000 ML 1,000 ML IV ONE ×2 (07:55→09:44)
[2018-09-14] MEDS ORDERED: RECEIVED CONTRAST (Hold Metformin) IV SCH (08:00)
[2018-09-14] MEDS ORDERED: NS 250 ML (IVPB) BAG IV ONE (08:00)
[2018-09-14] MEDS ORDERED: IOHEXOL 350 MG/ML 150 ML (OMNIPAQUE 350) VIAL IV ONE (08:00)
[2018-09-14] MEDS ORDERED: PIPERACILLIN SODIUM/TAZOBACTAM 4.5 GM in NS (IVPB) 100 ML IV ONE (09:00)
--- NOTE | 2018-09-14 09:10 | Diagnostic Imaging Report ---
PROCEDURE: CT angiography of the chest with contrast. TECHNIQUE: Multiple contiguous axial images were obtained through the chest after uneventful bolus administration of intravenous contrast. 2D reconstructed CTA MIP acquisitions were also performed. INDICATION: Chest pain The previous CTA chest exam of 10/04/2017 noted extensive centrilobular emphysema but failed to show any sign of an acute abnormality. The plain film examination of the chest performed earlier today at 7:32 AM noted improving right basilar pneumonia. On this exam, there is still a sizable dense area of consolidation in the right lung base. This would be consistent with pneumonia/atelectasis. The right upper lobe and left lobe are generally clear. There is still no evidence for a defect within the pulmonary arteries to indicate a pulmonary embolus. The aorta is not abnormally dilated and there is no sign of dissection. The heart size is within normal limits. There are coronary artery calcifications evident. There are few small mediastinal nodes. These are similar in appearance to the prior exam. The thyroid gland is not enlarged. The sections through the upper abdomen failed to show any sign of an acute abnormality. The bone windows are unremarkable for a fracture or for a destructive lesion. IMPRESSION: 1. There is a sizable dense area of pneumonia/atelectasis involving the right lower lobe. A followup chest exam would be recommended to assure that this area clears completely. 2. There is no acute cardiopulmonary abnormality noted otherwise. In particular, there is no sign of a pulmonary embolus. 3. There are emphysematous changes involving both lungs. 4. These results were discussed with Dr. Mora in the ER. Dictated by: Dictated on workstation # [id number]
[2018-09-14] MEDS ORDERED: ONDANSETRON 4 MG/2 ML (SDV) Z0FRAN IV PRN (11:15)
[2018-09-14] MEDS ORDERED: CATHETER FLUSH 10 ML SYR IV PRN (11:15)
[2018-09-14] MEDS: NS IV 1000 ML 1,000 ML IV SCH ×2 (11:18→20:11)
[2018-09-14 12:00] VITALS: BP 113/66
--- OUTSIDE RECORDS SUMMARY | 2018-09-14 12:02 | XMS REPORT ---
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 [employer] Name Role Phone GELY DIAZ Unavailable PROBLEMS Type Condition ICD9-CM Code HGN97-GC Code Onset Dates Condition Status SNOMED Code Problem Neuropathy G62.9 Active 104226169 Problem Panlobular emphysema J43.1 Active 7892495 Problem Chronic gastric ulcer without hemorrhage and without perforation K25.7 Active 68218089 Problem Drug allergy Z88.9 Active 163139008 Problem Rheumatoid arthritis flare M06.9 Active 849539911 Problem Primary osteoarthritis involving multiple joints M15.0 Active 670734244 Problem Chronic atrial fibrillation I48.2 Active 180726412 Problem Rheumatoid arthritis of left hand without organ or system involvement with positive rheumatoid factor M05.742 Active 429431807 Problem 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 M05.741 Active 948600229 Problem GERD (gastroesophageal reflux disease) K21.9 Active 707822049 Problem History of [place] (myocardial infarction) I25.2 Active 794629037 Problem Hyperlipidemia E78.5 Active 35360498 Problem Hypertension I10 Active 43357707 Problem Coronary artery disease I25.10 Active 09542500 Problem History of nicotine dependence Z87.891 Active 84622122 Problem Arthritis M19.90 Active 2116967 ALLERGIES No Known Allergies ENCOUNTERS Encounter Location Date Diagnosis [facility] [address] [facility] [id number] [address] Aug, [facility] [id number], [place] [address] Aug, Pneumonia of right lower lobe due to infectious organism J18.1 and Drug allergy Z88.9 [facility] [address] [facility] [id number], [place] [address] Aug, [facility] [id number], [place] [address] Aug, Pneumonia of right lower lobe due to infectious organism J18.1 and 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 M05.741 [facility] [address], [place] [address] Aug, Fever and chills R50.9 and Pneumonia of right lower lobe due to infectious organism J18.1 [facility] [address], [place] [address] Jan, 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 M05.741 [address], [place] [address] Jan, [address] [id number] [place] [address] Jan, Rheumatoid arthritis of left hand without organ or system involvement with positive rheumatoid factor M05.742 [facility] [address], [place] [address] Dec, 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 M05.741 [address] [address], [place] [address] Dec, 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 M05.741 and Rheumatoid arthritis of left hand without organ or system involvement with positive rheumatoid factor M05.742 [facility] [address], [place] [address] Dec, Panlobular emphysema J43.1 [place] [address], [place] [address] Dec, 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 M05.741 ; Rheumatoid arthritis of left hand without organ or system involvement with positive rheumatoid factor M05.742 and Rheumatoid arthritis flare M06.9 [place] [id number], [place] [address] Dec, Primary osteoarthritis involving multiple joints M15.0 and Chronic atrial fibrillation I48.2 [facility] [id number] [place] [address] Nov, Arthritis M19.90 and Myalgia M79.1 [facility] [id number] [place] [address] Nov, [facility] [id number] [place] [address] Nov, [facility] [id number] [place] [address] Oct, Panlobular emphysema J43.1 and Chronic atrial fibrillation I48.2 [place] [id number] [place] [address] Sep, Arthritis M19.90 and Chronic gastric ulcer without hemorrhage and without perforation K25.7 [facility] [id number] [place] [address] Aug, [facility] [id number] [place] [address] Aug, [facility] [id number] [place] [address] Aug, [facility] [id number] [place] [address] Jul, Neuropathy G62.9 and Arthritis M19.90 [facility] [id number] [place] [address] Jun, Arthritis M19.90 [facility] [id number] [place] [address] May, Pain in joints M25.50 [facility] [id number] [place] [address] Apr, Other malaise R53.81 [place] [address], [place] [address] Sep, [place] [id number] [place] [address] Sep, Routine adult health maintenance Z00.00 ; Hypertension I10 ; Hyperlipidemia E78.5 ; History of WV (myocardial infarction) I25.2 and Bronchitis J40 [place] [id number] [place] [address] Sep, [place] [id number] [place] [address] Jan, [place] [id number] [place] [address] Jan, [place] [id number] [place] [address] Aug, IMMUNIZATIONS No Known Immunizations SOCIAL HISTORY Never Assessed REASON FOR VISIT Hospital f/u 08/11-08/14/18 dx pneumonia Ahsan RODRIGUEZ , still having mild chest discomfort/ short of breath with exertion / dizzy/ lightheaded when standing up Ahsan RODRIGUEZ PLAN OF CARE Activity Details Follow Up Reg appt Reason: VITAL SIGNS Height 71 in 2018-08-17 Weight 167 lbs 2018-08-17 Temperature 97.8 degrees Fahrenheit 2018-08-17 Heart Rate 67 bpm 2018-08-17 Respiratory Rate 20 2018-08-17 BMI 23.29 kg/m2 2018-08-17 Blood pressure systolic 130 mmHg 2018-08-17 Blood pressure diastolic 70 mmHg 2018-08-17 MEDICATIONS Medication Instructions Dosage Frequency Start Date End Date Duration Status Hydroxychloroquine Sulfate 200 MG Orally Twice daily 1 tablet with food or milk Active Eliquis 5 mg Orally 2 times a day 1 tablet 12h Oct, Active Metoprolol Tartrate 25 MG Orally Twice a day 1 tablet with food 12h 30 day(s) Active Humira 20 MG/0.4ML as directed Active Asmanex HFA 100 MCG/ACT Inhalation Twice a day 2 puffs 12h Dec, 30 days Active Diltiazem HCl ER 240 MG Orally Once a day 1 capsule on an empty stomach in the morning 24h Active RESULTS No Results PROCEDURES No Known procedures INSTRUCTIONS MEDICATIONS ADMINISTERED No Known Medications MEDICAL (GENERAL) HISTORY Type Description Date Medical History CAD--3 stents placed 08-30-15 Medical History hypertension Medical History NSTEMI on 08-30-15 Medical History chest pain/unstable angina Medical History hyperlipidemia Medical History esophageal reflux Medical History Atrial fibrillation Medical History S[place] Spotted Tick Fever Medical History pneumonia Surgical History heart cath-3 stents placed in RAC (total occlusion) 08-30-15 Surgical History repeat heart cath--stents patent 08-31-15 Hospitalization History Heart cath with 3 stents placed 08/2015 Hospitalization History cellulitis 07/2017 Hospitalization History Afib 10/26/17 Hospitalization History pnuemonia 08/11-08/14/18
[2018-09-14] MEDS: PIPERACILLIN/TAZO 4.5 GM/NS 100 ML IV SCH ×4 (14:22→23:21)
[2018-09-14 14:30] VITALS: BP 113/66
[2018-09-14] MEDS ORDERED: RT-ALBUTEROL/IPRATROPIUM 3 ML (DUONEB) VIAL INH PRN (14:45)
[2018-09-14 15:40] VITALS: BP 109/65
[2018-09-14] MEDS ORDERED: CALCIUM CARBONATE 500 MG (TUMS) TAB.CHEW PO PRN (16:00)
[2018-09-14] MEDS: RT-ALBUTEROL/IPRATROPIUM 3 ML (DUONEB) VIAL INH SCH ×2 (16:39→20:01)
[2018-09-14 20:25] VITALS: BP 119/57
--- NOTE | 2018-09-14 20:42 | History & Physicial (CHS) ---
HPI History of Present Illness: 63 yo male came to ER this morning after he had acute shortness of breath and chest pain to the point of making him quite anxious. He already feels much better. He was treated for pneumonia recently and had at least 11 days of outpatient antibiotics which he completed several days ago. He denies fever. Does have sore throat and productive cough in the am. He had a diffuse rash at the end of August that lasted just one day. Date seen by provider: Sep 14, 2018 Time Seen by Provider: 12:33 Attending Physician Celestina Barger MD PCP Crystal Culp DO Consult Date of Admission Sep 14, 2018 at 9:33 am Home Medications Home Medications Reviewed patient Home Medication Reconciliation performed by pharmacy medication reconciliations outside plant technician and/or nursing. Patients Allergies have been reviewed. Allergies Coded Allergies: No Known Drug Allergies (Unverified , 08/20/17) DIW-[id number] Hx Patient Social History Alcohol Use: Denies Use Recreational Drug Use: No Smoking Status: Former Smoker Type Used: Cigarettes 2nd Hand Smoke Exposure: Yes Recent Foreign Travel: No Contact w/other who traveled: No Recent Hopitalizations: No Recent Infectious Disease Expo: No Physical Abuse Screen: No Sexual Abuse: No Immunizations Up To Date Tetanus Booster (TDap): Unknown Date of Pneumonia Vaccine: Sep 09, 2018 Date of Influenza Vaccine: Sep 09, 2018 Past Medical History PMHx: CAD with stent placement x 3 NSTEMI - 2014 HTN Hyperlipidemia Tobacco Abuse GERD Osteoarthritits Neuropathy Chronic Gastric Ulcer COPD with Panlobular Emphysema Chronic Afib Rheumatoid Arthritis, Right Hand [place] Spotted Fever - 2017 Past Surgical History: Heart Cath x2 Family Medical History Significant Family History: Diabetes, Hypertension Family History: Cardiovascular disease Cataracts Diabetes mellitus Glaucoma Hypertension Myocardial infarction Respiratory disorder Thyroid disease Visual disorder No Family History of: AIDS Abdominal aortic aneurysm Chilcoot's disease Alcoholism Alzheimer's disease Aphasia Arthritis Asthma Cancer of mouth Colon cancer Completed stroke Congenital disease Congenital heart disease Coronary thrombosis Cystic fibrosis Deafness or hearing loss Dementia Drug abuse Dysphasia Fibrocystic disease of breast Gastroenteritis Headache disorder Hypercholesterolemia Infertility Kidney disease Neoplasm Not obtainable due to adoption Osteoporosis Parkinson's disease Prostate cancer Psychosocial problem Seizure disorder Severe allergy Tuberculosis Review of Systems (CHC) Constitutional: No fever EENTM: No nose congestion Respiratory: see HPI Cardiovascular: see HPI Gastrointestinal: No abdominal pain, No constipation, No diarrhea, No melena, No nausea, No vomiting Genitourinary: No dysuria Musculoskeletal: joint pain (baseline) Skin: No rash Psychiatric/Neurological: No Symptoms Reported Reviewed Test Results Reviewed Test Results Lab Laboratory Tests Test 09/14/18 06:58 09/14/18 08:27 Range/Units White Blood Count 10.9 4.3-11.0 10^3/uL Red Blood Count 4.65 4.35-5.85 10^6/uL Hemoglobin 13.0 L 13.3-17.7 G/DL Hematocrit 39 L 40-54 % Mean Corpuscular Volume 84 80-99 FL Mean Corpuscular Hemoglobin 28 25-34 PG Mean Corpuscular Hemoglobin Concent 33 32-36 G/DL Red Cell Distribution Width 14.9 H 10.0-14.5 % Platelet Count 412 H 130-400 10^3/uL Mean Platelet Volume 8.3 7.4-10.4 FL Neutrophils (%) (Auto) 62 42-75 % Lymphocytes (%) (Auto) 26 12-44 % Monocytes (%) (Auto) 9 0-12 % Eosinophils (%) (Auto) 2 0-10 % Basophils (%) (Auto) 1 0-10 % Neutrophils # (Auto) 6.8 1.8-7.8 X 10^3 Lymphocytes # (Auto) 2.9 1.0-4.0 X 10^3 Monocytes # (Auto) 1.0 0.0-1.0 X 10^3 Eosinophils # (Auto) 0.3 0.0-0.3 10^3/uL Basophils # (Auto) 0.1 0.0-0.1 10^3/uL Prothrombin Time 13.6 12.2-14.7 SEC INR Comment 1.0 0.8-1.4 Activated Partial Thromboplast Time 34 24-35 SEC D-Dimer 1.64 H 0.00-0.49 UG/ML Sodium Level 136 135-145 MMOL/L Potassium Level 4.3 3.6-5.0 MMOL/L Chloride Level 102 98-107 MMOL/L Carbon Dioxide Level 20 L 21-32 MMOL/L Anion Gap 14 5-14 MMOL/L Blood Urea Nitrogen 27 H 7-18 MG/DL Creatinine 1.20 0.60-1.30 MG/DL Estimat Glomerular Filtration Rate > 60 BUN/Creatinine Ratio 23 Glucose Level 116 H 70-105 MG/DL Calcium Level 9.7 8.5-10.1 MG/DL Corrected Calcium 10.0 8.5-10.1 MG/DL Magnesium Level 1.5 L 1.8-2.4 MG/DL Total Bilirubin 0.6 0.1-1.0 MG/DL Aspartate Amino Transf (AST/SGOT) 11 5-34 U/L Alanine Aminotransferase (ALT/SGPT) 19 0-55 U/L Alkaline Phosphatase 101 40-136 U/L Myoglobin 92.4 H 10.0-92.0 NG/ML Troponin I < 0.30 <0.30 NG/ML Total Protein 7.2 6.4-8.2 GM/DL Albumin 3.6 3.2-4.5 GM/DL Lactic Acid Level 1.25 0.50-2.00 MMOL/L Radiology CXR 09/14: IMPRESSION: 1. No acute cardiopulmonary process. 2. Improving but incomplete resolution of the right basilar pneumonia. CT chest 09/14: DRAFT "IMPRESSION: 1. There is a sizable dense area of pneumonia/atelectasis involving the right lower lobe. A followup chest exam would be recommended to assure that this area clears completely. 2. There is no acute cardiopulmonary abnormality noted otherwise. In particular , there is no sign of a pulmonary embolus. 3. There are emphysematous changes involving both lungs." Physical Exam-([facility]C) Physical Exam Vital Signs VS - Last 72 Hours, by Label 09/14/18 09/14/18 09/14/18 09/14/18 06:50 07:33 10:42 10:55 Temp 98.2 Pulse 99 108 76 Resp 18 18 18 B/P (MAP) 109/72 (84) 100/70 (80) 96/67 (77) Pulse Ox 96 97 O2 Delivery Room Air Room Air Room Air Room Air 09/14/18 09/14/18 09/14/18 09/14/18 12:00 14:30 14:30 15:40 Temp 97.7 99.1 Pulse 73 70 73 Resp 24 16 B/P (MAP) 113/66 (82) 109/65 (80) Pulse Ox 96 93 93 97 O2 Delivery Room Air Room Air Room Air 09/14/18 09/14/18 16:39 20:03 Pulse Ox 93 92 O2 Delivery Room Air Room Air Capillary Refill : Less Than 3 Seconds General Appearance: WD/WN, no apparent distress Respiratory: no respiratory distress, rales (right base); No wheezing Cardiovascular: regular rate, rhythm, no murmur Gastrointestinal: normal bowel sounds, non tender, soft Extremities: no pedal edema Neurologic/Psychiatric: alert, normal mood/affect Skin: normal color, warm/dry Assessment/Plan Assessment/Plan Admission Status: Inpatient Order (span 2 midnights) Reason for Inpatient Admission: Pneumonia with multiple comorbidities at risk of complication. (1) Chest pain Status: Acute Assessment & Plan: Suspect due to pneumonia. Troponin neg. (2) Right lower lobe pneumonia Status: Acute Assessment & Plan: With tachycardia and leukocytosis, but no evidence of severe sepsis. Started on zosyn due to recent outpatient treatment and significant infiltrate. Qualifiers: Qualified Codes: J18.1 - Lobar pneumonia, unspecified organism (3) Hypomagnesemia Status: Acute Assessment & Plan: Replace and recheck (4) Thrombocytosis Status: Acute Assessment & Plan: Suspect reactive with infection. Monitor. (5) Hypertension Status: Chronic Assessment & Plan: BP currently normal to low. Qualifiers: Qualified Codes: I10 - Essential (primary) hypertension (6) GERD (gastroesophageal reflux disease) Status: Chronic Assessment & Plan: Resume home sucralfate (7) Coronary artery disease Status: Chronic Qualifiers: (8) Rheumatoid arthritis Status: Chronic Assessment & Plan: Resume home hydroxychloroquine (9) COPD (chronic obstructive pulmonary disease) Status: Chronic Assessment & Plan: Resume home Asmanex (10) Atrial fibrillation Status: Chronic Assessment & Plan: Resume home Eliquis and diltiazem Qualifiers: Qualified Codes: I48.2 - Chronic atrial fibrillation (11) DVT prophylaxis Status: Acute Assessment & Plan: On therapeutic Eliquis Clinical Quality Measures AMI/AHF: ASA po Prior to arrival: No DVT/VTE Risk/Contraindication: Risk Factor Score Per Nursin RFS Level Per Nursing on Admit: 2=Moderate CELESTINA BARGER MD Sep 14, 2018 8:42 pm
[2018-09-14] MEDS: APIXABAN 5 MG (ELIQUIS) TABLET PO SCH (20:44)
[2018-09-14] MEDS: ACETAMINOPHEN 500 MG TAB (TYLENOL) PO PRN (20:45)
[2018-09-14] MEDS ORDERED: MOMETASONE FUROATE INH PRN (21:00)
[2018-09-14] MEDS ORDERED: NON-FORMULARY MEDICATION 1 EA EA (Hydroxychloroquine Sulfate 200 MG) PO SCH (21:00)
[2018-09-14] MEDS ORDERED: MAGNESIUM 1 GM/100 ML IVPB 100 ML IV ONE (21:15)
[2018-09-14] MEDS: SUCRALFATE 1 GM (CARAFATE) TAB PO SCH (21:55)
[2018-09-15 00:03] VITALS: BP 105/63
[2018-09-15] MEDS: RT-ALBUTEROL/IPRATROPIUM 3 ML (DUONEB) VIAL INH SCH ×2 (03:32→08:09)
[2018-09-15 04:00] VITALS: BP 104/55
[2018-09-15 04:52] LABS: BASOPHILS % (AUTO) 0 % (0-10); EOSINOPHILS # (AUTO) 0.3 10^3/uL (0.0-0.3); EOSINOPHILS % (AUTO) 4 % (0-10); HEMATOCRIT 31 % (40-54); HEMOGLOBIN 10.3 G/DL (13.3-17.7); LYMPHOCYTES # (AUTO) 2.4 X 10^3 (1.0-4.0); LYMPHOCYTES % (AUTO) 35 % (12-44); MEAN CORPUSCULAR HEMOGLOBIN 28 PG (25-34); MEAN CORPUSCULAR HGB CONC 33 G/DL (32-36); MEAN CORPUSCULAR VOLUME 85 FL (80-99); MONOCYTES # (AUTO) 0.5 X 10^3 (0.0-1.0); MONOCYTES % (AUTO) 8 % (0-12); NEUTROPHILS # (AUTO) 3.6 X 10^3 (1.8-7.8); NEUTROPHILS % (AUTO) 53 % (42-75); PLATELET COUNT 325 10^3/uL (130-400); RED BLOOD COUNT 3.65 10^6/uL (4.35-5.85); RED CELL DISTRIBUTION WIDTH 15.2 % (10.0-14.5); WHITE BLOOD COUNT 6.8 10^3/uL (4.3-11.0)
[2018-09-15] MEDS: ACETAMINOPHEN 500 MG TAB (TYLENOL) PO PRN ×2 (05:04→10:47)
[2018-09-15 05:22] LABS: ALANINE AMINOTRANSFERASE 14 U/L (0-55); ALBUMIN 2.7 GM/DL (3.2-4.5); ALKALINE PHOSPHATASE 74 U/L (40-136); BILIRUBIN,TOTAL 0.4 MG/DL (0.1-1.0); BUN/CREATININE RATIO 19; CALCIUM 8.4 MG/DL (8.5-10.1); CARBON DIOXIDE 20 MMOL/L (21-32); CHLORIDE 107 MMOL/L (98-107); CHOLESTEROL 154 MG/DL (< 200); CREATININE SERUM 1.03 MG/DL (0.60-1.30); GFR ESTIMATED > 60; GLUCOSE 111 MG/DL (70-105); HDL CHOLESTEROL 28 MG/DL (40-60); POTASSIUM 3.4 MMOL/L (3.6-5.0); SODIUM 136 MMOL/L (135-145); TOTAL PROTEIN 5.4 GM/DL (6.4-8.2); TRIGLYCERIDES 79 MG/DL (<150); VLDL CHOLESTEROL 16 MG/DL (5-40)
[2018-09-15] MEDS: PIPERACILLIN/TAZO 4.5 GM/NS 100 ML IV SCH ×2 (06:40)
[2018-09-15 08:00] VITALS: BP 117/70
[2018-09-15] MEDS: SUCRALFATE 1 GM (CARAFATE) TAB PO SCH ×2 (08:10→12:44)
[2018-09-15] MEDS: APIXABAN 5 MG (ELIQUIS) TABLET PO SCH (08:10)
[2018-09-15] MEDS ORDERED: NON-FORMULARY MEDICATION 1 EA EA (Diltiazem HCl (Diltiazem 24Hr ER) 240 MG) PO SCH (09:00)
[2018-09-15] MEDS ORDERED: DILTIAZEM 240 MG (CARDIZEM CD) CAP PO SCH (09:00)
[2018-09-15] MEDS ORDERED: HYDROXYCHLOROQUINE 200 MG (PLAQUENIL) TAB PO SCH (09:00)
[2018-09-15 09:16] LABS: ABSOLUTE RETIC # 52 10e9/L (24-90); BASOPHILS # (AUTO) 0.1 10^3/uL (0.0-0.1); BASOPHILS % (AUTO) 1 % (0-10); EOSINOPHILS # (AUTO) 0.3 10^3/uL (0.0-0.3); EOSINOPHILS % (AUTO) 5 % (0-10); HEMATOCRIT 32 % (40-54); HEMOGLOBIN 10.2 G/DL (13.3-17.7); LYMPHOCYTES # (AUTO) 2.4 X 10^3 (1.0-4.0); LYMPHOCYTES % (AUTO) 34 % (12-44); MEAN CORPUSCULAR HEMOGLOBIN 27 PG (25-34); MEAN CORPUSCULAR HGB CONC 32 G/DL (32-36); MEAN CORPUSCULAR VOLUME 85 FL (80-99); MEAN PLATELET VOLUME 8.9 FL (7.4-10.4); MONOCYTES # (AUTO) 0.6 X 10^3 (0.0-1.0); MONOCYTES % (AUTO) 9 % (0-12); NEUTROPHILS # (AUTO) 3.5 X 10^3 (1.8-7.8); NEUTROPHILS % (AUTO) 51 % (42-75); PLATELET COUNT 356 10^3/uL (130-400); RED BLOOD COUNT 3.71 10^6/uL (4.35-5.85); RED CELL DISTRIBUTION WIDTH 15.3 % (10.0-14.5); RETICULOCYTE % 1.41 % (0.50-2.40); WHITE BLOOD COUNT 6.8 10^3/uL (4.3-11.0)
[2018-09-15] MEDS ORDERED: KCL 20 MEQ TAB (K-DUR) PO NR (09:30)
[2018-09-15 10:15] LABS: BAND NEUTROPHILS 3 %; BASOPHILS % (MANUAL) 0 %; EOSINOPHILS % (MANUAL) 5 %; LYMPHOCYTES % (MANUAL) 15 %; METAMYELOCYTES % 1 %; MONOCYTES % (MANUAL) 6 %; NEUTROPHILS % (MANUAL) 53 %
[2018-09-15 10:29] LABS: REACTIVE LYMPHOCYTES 17 %
[2018-09-15 10:30] LABS: PLATELET CLUMPS SLIGHT
[2018-09-15 10:31] LABS: CRENATED RBC SLIGHT; ELLIPT/OVALOCYTES SLIGHT; HELMET/BITE CELLS SLIGHT; POIKILOCYTOSIS MODERATE; ROULEAUX SLIGHT; TOXIC GRANULATION/VACUOLAZATIO 1+
[2018-09-15 12:00] VITALS: BP 110/71
[2018-09-15] MEDS ORDERED: LEVO750T39 PO (13:29)
--- NOTE | 2018-09-15 13:31 | Discharge Instructions ---
Discharge [facility] Discharge Medications New, Converted or Re-Newed RX: Transmitted to Pharmacy New Medications: Levofloxacin (Levofloxacin) 750 Mg Tablet 750 MG PO DAILY, #10 TAB 0 Refills Continued Medications: Adalimumab (Humira) 40 Mg/0.8 Ml Pen.ij.kit 40 MG IM EVERY 2 WEEKS, EA Apixaban (Eliquis) 5 Mg Tablet 5 MG PO BID, TAB Diltiazem HCl (Diltiazem 24Hr ER) 240 Mg Cap.er.24h 240 MG PO DAILY, CAP Hydroxychloroquine Sulfate (Hydroxychloroquine Sulfate) 200 Mg Tablet 200 MG PO BID, TAB Mometasone Furoate (Asmanex Hfa) 13 Gm Hfa.aer.ad 1 PUFF INH BID PRN for SHORTNESS OF BREATH, INHALER Sucralfate (Carafate) 1 Gm Tablet 1 GM PO QID, #120 TAB 30 minutes before meals and before bed. May crush and mixed with 10 mL water to make slurry for better effect. Patient Instructions Goal/Follow Up Appt: Follow up with Victorino Knapp APRN at [facility] on Sep 20 at 12:40 pm. Return to The [facility] For: Fever, worsening shortness of breath Activity & Diet Discharge Diet: Regular Diet Activity as Tolerated: Yes Copy Copies To 1: MASOOD Lopez BETHANY N MD Sep 15, 2018 1:31 pm
--- NOTE | 2018-09-15 14:19 | Discharge Summary ---
Diagnosis/Chief Complaint Date of Admission Sep 14, 2018 at 9:33 am Date of Discharge Admission Diagnosis Admission Diagnosis Pneumonia, see problem list Discharge Diagnosis See problem list Problems/Diagnosis: (1) Chest pain Assessment & Plan: Suspect due to pneumonia. Troponin neg. Improved on day of d/c. Status: Acute (2) Right lower lobe pneumonia Assessment & Plan: With tachycardia and leukocytosis, but no evidence of severe sepsis. Started on zosyn due to recent outpatient treatment and significant infiltrate. 09/15- no significant vital sign or lab abnormalities on day of d/c, discharged with 10 days of levofloxacin, recommend follow-up x-ray/possibly CT after treatment. Qualifiers: Qualified Codes: J18.1 - Lobar pneumonia, unspecified organism Status: Acute (3) Hypomagnesemia Assessment & Plan: Replace and recheck Status: Acute (4) Thrombocytosis Assessment & Plan: Suspect reactive with infection. Monitor. Status: Resolved Resolution Date/Time: 09/15/18 @ 14:45 (5) Hypertension Assessment & Plan: BP currently normal to low. Qualifiers: Qualified Codes: I10 - Essential (primary) hypertension Status: Chronic (6) GERD (gastroesophageal reflux disease) Assessment & Plan: Resume home sucralfate Status: Chronic (7) Coronary artery disease Qualifiers: Status: Chronic (8) Rheumatoid arthritis Assessment & Plan: Resume home hydroxychloroquine Status: Chronic (9) COPD (chronic obstructive pulmonary disease) Assessment & Plan: Resume home Asmanex Status: Chronic (10) Atrial fibrillation Assessment & Plan: Resume home Eliquis and diltiazem Qualifiers: Qualified Codes: I48.2 - Chronic atrial fibrillation Status: Chronic Chief Complaint/HPI Chief Complaint/HPI 63 yo male came to ER this morning after he had acute shortness of breath and chest pain to the point of making him quite anxious. He already feels much better. He was treated for pneumonia recently and had at least 11 days of outpatient antibiotics which he completed several days ago. He denies fever. Does have sore throat and productive cough in the am. He had a diffuse rash at the end of August that lasted just one day. Discharge Summary-Simple/Stand Consultations Discharge Physical Examination Allergies: Coded Allergies: No Known Drug Allergies (Unverified , 08/20/17) Vitals & I&Os Vital Sign - Last 12Hours Date Time Temp Pulse Resp B/P (MAP) Pulse Ox O2 Delivery O2 Flow Rate FiO2 09/15/18 08:09 94 Room Air 09/15/18 08:00 97.6 80 20 117/70 (86) Intake and Output 09/15/18 00:00 Intake Total 2190 ml Balance 2190 ml General Appearance: Alert, No Acute Distress Respiratory: Other (rales right base) Cardiovascular: Regular Rate, No Murmurs Extremities: No Edema Neuro: Normal Speech Psych/Mental Status: Mental Status NL Hospital Course See final discharge diagnosis. Radiology Reviewed CXR 09/14: IMPRESSION: 1. No acute cardiopulmonary process. 2. Improving but incomplete resolution of the right basilar pneumonia. CT chest 09/14: DRAFT "IMPRESSION: 1. There is a sizable dense area of pneumonia/atelectasis involving the right lower lobe. A followup chest exam would be recommended to assure that this area clears completely. 2. There is no acute cardiopulmonary abnormality noted otherwise. In particular , there is no sign of a pulmonary embolus. 3. There are emphysematous changes involving both lungs. Discharge Instructions to patient/family Please see electronic discharge instructions given to patient. Discharge Medications Reviewed and agree with Discharge Medication list on patient's Discharge Instruction sheet Clinical Quality Measures AMI/AHF: ASA po Prior to arrival: No DVT/VTE Risk/Contraindication: Risk Factor Score Per Nursin RFS Level Per Nursing on Admit: 2=Moderate Copy Copies To 1: MASOOD Lopez BETHANY N MD Sep 15, 2018 14:19
== END 2018-09-15 16:00 | disposition home or self-care (01) | DRG 195 ==
LOC: EDUNIT# 06:49 → ER 06:50 → 4TH 09:33
PROVIDERS: ADMIT Family Medicine; ATTEND Family Medicine
DX: J18.1 Lobar pneumonia, unspecified organism (principal); I48.91 Unspecified atrial fibrillation; I25.10 Atherosclerotic heart disease of native coronary artery without angina pectoris; I10 Essential (primary) hypertension; K21.9 Gastro-esophageal reflux disease without esophagitis; E83.42 Hypomagnesemia; D47.3 Essential (hemorrhagic) thrombocythemia; M06.9 Rheumatoid arthritis, unspecified; J44.9 Chronic obstructive pulmonary disease, unspecified; E78.00 Pure hypercholesterolemia, unspecified; I25.2 Old myocardial infarction; Z87.891 Personal history of nicotine dependence; Z95.5 Presence of coronary angioplasty implant and graft
CPT/HCPCS: 36415; 71045; 71275; 80053; 80061; 82728; 83540; 83605; 83735; 83874; 84484; 85007; 85025; 85027; 85045; 85379; 85610; 85730; 87040; 93005; 93041; 94640; 94760; 96361; 96365; 96375

== ENCOUNTER 2019-05-05 07:51 | Emergency (ER) | payer OTHER ==
[~2019-05-05] VITALS: Ht 185.4 cm; Wt 72.6 kg
[~2019-05-05 07:51] MED LIST changes: +LEVO750T39 PO
--- OUTSIDE RECORDS SUMMARY | 2019-05-05 08:07 | XMS REPORT ---
Author Author Migration, Doctor Organization [facility] Address Unknown Phone Unavailable Care Team Providers Care Gasket Supervisor Name Role Phone Migration, Doctor Unavailable Unavailable PROBLEMS Type Condition ICD9-CM Code MPG21-UK Code Onset Dates Condition Status SNOMED Code Problem History of [place] (myocardial infarction) I25.2 Active 517852899 Problem History of nicotine dependence Z87.891 Active 33176820 Problem Hypertension I10 Active 51514257 Problem GERD (gastroesophageal reflux disease) K21.9 Active 666015140 Problem Coronary artery disease I25.10 Active 55871388 Problem Hyperlipidemia E78.5 Active 79440457 Problem Chronic gastric ulcer without hemorrhage and without perforation K25.7 Active 23225078 Problem Panlobular emphysema J43.1 Active 1346321 Problem Chronic atrial fibrillation I48.2 Active 310306412 Problem Drug allergy Z88.9 Active 833133303 Problem Neuropathy G62.9 Active 256493421 Problem Erectile dysfunction, unspecified erectile dysfunction type N52.9 Active 591916081 Problem Arthritis M19.90 Active 6807911 Problem Primary osteoarthritis involving multiple joints M15.0 Active 292755060 Problem 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 M05.741 Active 920591669 Problem Rheumatoid arthritis of left hand without organ or system involvement with positive rheumatoid factor M05.742 Active 877200274 Problem Rheumatoid arthritis flare M06.9 Active 768305737 ALLERGIES No Information ENCOUNTERS Encounter Location Date Diagnosis [facility] [address] [facility] [id number] [address] Dec, Arthritis M19.90 and Erectile dysfunction, unspecified erectile dysfunction type N52.9 [facility] [address] [address] Dec, [facility] [id number] [address] Sep, Pneumonia of right lower lobe due to infectious organism J18.1 [facility] [address] [address] Sep, [facility] [address] [address] Sep, Pneumonia of right lower lobe due to infectious organism J18.1 [facility] [address] [address] Sep, Community acquired pneumonia of right lower lobe of lung J18.1 and Encounter for immunization Z23 [facility] [address] [address] Sep, Community acquired pneumonia of right lower lobe of lung J18.1 [facility] [address] [address] Aug, Pneumonia of right lower lobe due to infectious organism J18.1 [place] [address] [address] Aug, Pneumonia of right lower lobe due to infectious organism J18.1 and Drug allergy Z88.9 [place] [address] [address] Aug, [facility] [address] [address] Aug, Pneumonia of right lower lobe due to infectious organism J18.1 and 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 M05.741 [facility] [id number] [address] Aug, Fever and chills R50.9 and Pneumonia of right lower lobe due to infectious organism J18.1 [facility] [address] [address] Jan, 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 M05.741 [facility] [address] [address] Jan, [place] [address] [address] Jan, Rheumatoid arthritis of left hand without organ or system involvement with positive rheumatoid factor M05.742 [place] [address] [address] Dec, 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 M05.741 [place] [address] [place] [address] Dec, 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 M05.741 and Rheumatoid arthritis of left hand without organ or system involvement with positive rheumatoid factor M05.742 [place] [address] [address] Dec, Panlobular emphysema J43.1 [place] [id number] [place] [address] Dec, 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 M05.741 ; Rheumatoid arthritis of left hand without organ or system involvement with positive rheumatoid factor M05.742 and Rheumatoid arthritis flare M06.9 [place] [address] [address] Dec, Primary osteoarthritis involving multiple joints M15.0 and Chronic atrial fibrillation I48.2 [place] [address] [address] Nov, Arthritis M19.90 and Myalgia M79.1 [facility] [address] [address] Nov, [place] [id number] [place] [address] Nov, [place] [address] [address] Oct, Panlobular emphysema J43.1 and Chronic atrial fibrillation I48.2 [place] [address] [address] Sep, Arthritis M19.90 and Chronic gastric ulcer without hemorrhage and without perforation K25.7 [facility] [address] [address] Aug, [facility] [address] [address] Aug, [facility] [address] [address] Aug, [place] [address] [address] Jul, Neuropathy G62.9 and Arthritis M19.90 [place] [address] [address] Jun, Arthritis M19.90 [facility] [address] [address] May, Pain in joints M25.50 [facility] [address] [address] Apr, Other malaise R53.81 [place] [address] [address] Sep, [place] [address] [address] Sep, Routine adult health maintenance Z00.00 ; Hypertension I10 ; Hyperlipidemia E78.5 ; History of [place] (myocardial infarction) I25.2 and Bronchitis J40 [place] [address] [address] Sep, [place] [address] [address] 14 Jan, 2015 [place] [address] [address] Jan, [facility] [address] [facility] [id number] [address] Aug, IMMUNIZATIONS No Known Immunizations SOCIAL HISTORY Never Assessed REASON FOR VISIT [facility] PLAN OF CARE VITAL SIGNS MEDICATIONS Medication Instructions Dosage Frequency Start Date End Date Duration Status PredniSONE 10 mg 1 Tablet by Oral route 2 times per day for 5 days Suggested dosing time 8 am and noon. Do not take after 3 pm as may interfere with sleep. Aug, Active Codeine-Guaifenesin 10-100 mg/5 mL take 10 milliliters by Oral route as needed every 4 hours for nighttime only. Will cause drowsiness. Do not drive or operate equipment Aug, Active Azithromycin 250 mg 2 Tablet by Oral route 1 time per day for 6 days Aug, Active RESULTS No Results PROCEDURES No Known procedures INSTRUCTIONS MEDICATIONS ADMINISTERED No Known Medications MEDICAL (GENERAL) HISTORY Type Description Date Medical History CAD--3 stents placed 08-30-15 Medical History hypertension Medical History NSTEMI on 08-30-15 Medical History chest pain/unstable angina Medical History hyperlipidemia Medical History esophageal reflux Medical History Atrial fibrillation Medical History [place] Spotted Tick Fever Medical History pneumonia Surgical History heart cath-3 stents placed in RAC (total occlusion) 08-30-15 Surgical History repeat heart cath--stents patent 08-31-15 Hospitalization History Heart cath with 3 stents placed 08/2015 Hospitalization History cellulitis 07/2017 Hospitalization History Afib 10/26/17 Hospitalization History pnuemonia 08/11-08/14/18
--- OUTSIDE RECORDS SUMMARY | 2019-05-05 08:07 | XMS REPORT ---
Author Author Migration, Doctor Organization [facility] Address Unknown Phone Unavailable Care Team Providers Care Domestic Housekeeper Name Role Phone Migration, Doctor Unavailable Unavailable PROBLEMS Type Condition ICD9-CM Code [id number] Code Onset Dates Condition Status SNOMED Code Problem History of DE (myocardial infarction) I25.2 Active 828513335 Problem History of nicotine dependence Z87.891 Active 56826945 Problem Hypertension I10 Active 68457537 Problem GERD (gastroesophageal reflux disease) K21.9 Active 007366969 Problem Coronary artery disease I25.10 Active 72076919 Problem Hyperlipidemia E78.5 Active 09776471 Problem Chronic gastric ulcer without hemorrhage and without perforation K25.7 Active 50213227 Problem Panlobular emphysema J43.1 Active 0592090 Problem Chronic atrial fibrillation I48.2 Active 710072856 Problem Drug allergy Z88.9 Active 981886190 Problem Neuropathy G62.9 Active 615649119 Problem Erectile dysfunction, unspecified erectile dysfunction type N52.9 Active 154428298 Problem Arthritis M19.90 Active 3625330 Problem Primary osteoarthritis involving multiple joints M15.0 Active 407153158 Problem 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 M05.741 Active 060057318 Problem Rheumatoid arthritis of left hand without organ or system involvement with positive rheumatoid factor M05.742 Active 771134624 Problem Rheumatoid arthritis flare M06.9 Active 867348606 ALLERGIES No Information ENCOUNTERS Encounter Location Date Diagnosis [facility] [address] [facility] [id number] [address] Jan, [facility] [address] [address] Dec, Arthritis M19.90 and Erectile dysfunction, unspecified erectile dysfunction type N52.9 [facility] [address] [facility] [id number] [address] Dec, [facility] [address], [place] [address] Sep, Pneumonia of right lower lobe due to infectious organism J18.1 [facility] [address], [place] [address] Sep, [facility] [address], [place] [address] Sep, Pneumonia of right lower lobe due to infectious organism J18.1 [facility] [address] [place] [address] Sep, Community acquired pneumonia of right lower lobe of lung J18.1 and Encounter for immunization Z23 [place] [address] [place] [address] Sep, Community acquired pneumonia of right lower lobe of lung J18.1 [place] [address] [place] [address] Aug, Pneumonia of right lower lobe due to infectious organism J18.1 [place] [address] [address] Aug, Pneumonia of right lower lobe due to infectious organism J18.1 and Drug allergy Z88.9 [facility] [address], [place] [address] Aug, [facility] [address] [address] Aug, Pneumonia of right lower lobe due to infectious organism J18.1 and 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 M05.741 [facility] [address] [address] Aug, Fever and chills R50.9 and Pneumonia of right lower lobe due to infectious organism J18.1 [facility] [address], [place] [address] Jan, 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 M05.741 [facility] [address], [place] [address] Jan, [facility] [address] [place] [id number] [place] [address] Jan, Rheumatoid arthritis of left hand without organ or system involvement with positive rheumatoid factor M05.742 [facility] [address] [place] [address] Dec, 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 M05.741 [facility] [address] [place] [address] Dec, 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 M05.741 and Rheumatoid arthritis of left hand without organ or system involvement with positive rheumatoid factor M05.742 [place] [address] [place] [id number] [place] [address] Dec, Panlobular emphysema J43.1 [place] [address] [place] [address] Dec, 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 M05.741 ; Rheumatoid arthritis of left hand without organ or system involvement with positive rheumatoid factor M05.742 and Rheumatoid arthritis flare M06.9 [facility] [address], [place] [address] Dec, Primary osteoarthritis involving multiple joints M15.0 and Chronic atrial fibrillation I48.2 [facility] [address], [place] [address] Nov, Arthritis M19.90 and Myalgia M79.1 [facility] [address], [place] [address] Nov, [facility] [address], [place] [address] Nov, [facility] [address] [place] [id number] [place] [address] Oct, Panlobular emphysema J43.1 and Chronic atrial fibrillation I48.2 [place] [address] [address] Sep, Arthritis M19.90 and Chronic gastric ulcer without hemorrhage and without perforation K25.7 [place] [address] [address] Aug, [place] [address] [address] Aug, [place] [address] [address] Aug, [place] [address] [address] Jul, Neuropathy G62.9 and Arthritis M19.90 [place] [address] [address] Jun, Arthritis M19.90 [facility] [address] [address] May, Pain in joints M25.50 [facility] [address] [address] Apr, Other malaise R53.81 [place] [address] [address] Sep, [place] [address] [address] Sep, Routine adult health maintenance Z00.00 ; Hypertension I10 ; Hyperlipidemia E78.5 ; History of DE (myocardial infarction) I25.2 and Bronchitis J40 [place] [address] [address] Sep, [place] [address] [address] Jan, [facility] [address] [facility] [place] [id number] [place] [address] Jan, [facility] [address] [facility] [place] [id number] [place] [address] Aug, IMMUNIZATIONS No Known Immunizations SOCIAL HISTORY Never Assessed REASON FOR VISIT EMR-[facility] PLAN OF CARE VITAL SIGNS MEDICATIONS Unknown Medications RESULTS No Results PROCEDURES No Known procedures INSTRUCTIONS MEDICATIONS ADMINISTERED No Known Medications MEDICAL (GENERAL) HISTORY Type Description Date Medical History CAD--3 stents placed 08-30-15 Medical History hypertension Medical History NSTEMI on 08-30-15 Medical History chest pain/unstable angina Medical History hyperlipidemia Medical History esophageal reflux Medical History Atrial fibrillation Medical History [place] Spotted Tick Fever Medical History pneumonia Surgical History heart cath-3 stents placed in RAC (total occlusion) 08-30-15 Surgical History repeat heart cath--stents patent 08-31-15 Hospitalization History Heart cath with 3 stents placed 08/2015 Hospitalization History cellulitis 07/2017 Hospitalization History Afib 10/26/17 Hospitalization History pnuemonia 08/11-08/14/18
--- OUTSIDE RECORDS SUMMARY | 2019-05-05 08:07 | XMS REPORT ---
Author Author JORGE JACKSON Organization [facility] [place] Address [address] [place] [address] Care Team Providers Care Metal Tester Name Role Phone JORGE JACKSON Unavailable PROBLEMS Type Condition ICD9-CM Code [id number] Code Onset Dates Condition Status SNOMED Code Problem Neuropathy G62.9 Active 381547308 Problem Panlobular emphysema J43.1 Active 8091070 Problem Chronic gastric ulcer without hemorrhage and without perforation K25.7 Active 19601944 Problem Drug allergy Z88.9 Active 420520484 Problem Rheumatoid arthritis flare M06.9 Active 163082132 Problem Primary osteoarthritis involving multiple joints M15.0 Active 294968857 Problem Chronic atrial fibrillation I48.2 Active 489793788 Problem Rheumatoid arthritis of left hand without organ or system involvement with positive rheumatoid factor M05.742 Active 434419282 Problem 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 M05.741 Active 963457484 Problem GERD (gastroesophageal reflux disease) K21.9 Active 294304453 Problem History of [place] (myocardial infarction) I25.2 Active 428369574 Problem Hyperlipidemia E78.5 Active 00874006 Problem Hypertension I10 Active 91340731 Problem Coronary artery disease I25.10 Active 53744737 Problem History of nicotine dependence Z87.891 Active 70473873 Problem Arthritis M19.90 Active 8237533 ALLERGIES No Known Allergies ENCOUNTERS Encounter Location Date Diagnosis [facility] [place] [address] [facility] [id number], [place] [address] Sep, Pneumonia of right lower lobe due to infectious organism J18.1 [facility] [place] [address] [place] [id number] [address] Sep, [facility] [place] [address] [facility] [id number], [place] [address] Sep, Pneumonia of right lower lobe due to infectious organism J18.1 [facility] [place] [address], [place] [address] Sep, Community acquired pneumonia of right lower lobe of lung J18.1 and Encounter for immunization Z23 [facility] [place] [address] [place] [address] Sep, Community acquired pneumonia of right lower lobe of lung J18.1 [facility] [place] [address] [place] [id number] [place] [address] Aug, Pneumonia of right lower lobe due to infectious organism J18.1 [place] [address] [place] [id number] [place] [address] Aug, Pneumonia of right lower lobe due to infectious organism J18.1 and Drug allergy Z88.9 [place] [address] [place] [id number] [place] [address] Aug, [place] [address] [place] [id number] [place] [address] Aug, Pneumonia of right lower lobe due to infectious organism J18.1 and 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 M05.741 [facility] [address] [place] [address] Aug, Fever and chills R50.9 and Pneumonia of right lower lobe due to infectious organism J18.1 [facility] [place] [address] [place] [address] Jan, 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 M05.741 [place] [address] [place] [id number] [place] [address] Jan, [place] [address] [place] [id number] [place] [address] Jan, Rheumatoid arthritis of left hand without organ or system involvement with positive rheumatoid factor M05.742 [facility] [place] [address] [place] [id number] [place] [address] Dec, 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 M05.741 [place] [address] [place] [id number] [place] [address] Dec, 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 M05.741 and Rheumatoid arthritis of left hand without organ or system involvement with positive rheumatoid factor M05.742 [place] [address] [place] [id number] [place] [address] Dec, Panlobular emphysema J43.1 [place] [address] [place] [id number] [place] [address] Dec, 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 M05.741 ; Rheumatoid arthritis of left hand without organ or system involvement with positive rheumatoid factor M05.742 and Rheumatoid arthritis flare M06.9 [place] [address] [place] [id number] [place] [address] Dec, Primary osteoarthritis involving multiple joints M15.0 and Chronic atrial fibrillation I48.2 [place] [address] [place] [id number] [place] [address] Nov, Arthritis M19.90 and Myalgia M79.1 [facility] [address] [place] [address] Nov, [facility] [place] [address] [place] [id number] [place] [address] Nov, [place] [address] [place] [id number] [place] [address] Oct, Panlobular emphysema J43.1 and Chronic atrial fibrillation I48.2 [place] [address] [place] [id number] [place] [address] Sep, Arthritis M19.90 and Chronic gastric ulcer without hemorrhage and without perforation K25.7 [place] [address] [place] [id number] [place] [address] Aug, [facility] [place] [address], [place] [address] Aug, [facility] [place] [address] [place] [id number] [place] [address] Aug, [facility] [place] [address] [place] [id number] [place] [address] Jul, Neuropathy G62.9 and Arthritis M19.90 [facility] [place] [address] [place] [id number] [place] [address] Jun, Arthritis M19.90 [facility] [address] [place] [id number] [place] [address] May, Pain in joints M25.50 [facility] [address] [place] [id number] [place] [address] Apr, Other malaise R53.81 [place] [address] [place] [id number] [place] [address] Sep, [place] [address] [place] [id number] [place] [address] Sep, Routine adult health maintenance Z00.00 ; Hypertension I10 ; Hyperlipidemia E78.5 ; History of [place] (myocardial infarction) I25.2 and Bronchitis J40 [place] [address] [place] [id number] [place] [address] Sep, [place] [address] [place] [id number] [place] [address] Jan, [place] [address] [place] [id number] [place] [address] Jan, [place] [address] [place] [id number] [place] [address] Aug, IMMUNIZATIONS No Known Immunizations SOCIAL HISTORY Never Assessed REASON FOR VISIT work [facility] PLAN OF CARE VITAL SIGNS Height 71 in 2018-09-24 Weight 160 lbs 2018-09-24 Temperature 98.5 degrees Fahrenheit 2018-09-24 Heart Rate 88 bpm 2018-09-24 Respiratory Rate 20 2018-09-24 BMI 22.31 kg/m2 2018-09-24 Blood pressure systolic 120 mmHg 2018-09-24 Blood pressure diastolic 72 mmHg 2018-09-24 MEDICATIONS Medication Instructions Dosage Frequency Start Date End Date Duration Status Eliquis 5 mg Orally 2 times a day 1 tablet 12h 30 Active Asmanex HFA 100 MCG/ACT Inhalation Twice a day 2 puffs 12h 02 Dec, 2017 30 days Active Guaifenesin 400 MG Orally 4 times a day 1 tablet as needed 6h Sep, Active Metoprolol Tartrate 25 MG Orally Twice a day 1 tablet with food 12h 30 day(s) Active Humira 20 MG/0.4ML as directed Active Diltiazem HCl ER 240 MG Orally Once a day 1 capsule on an empty stomach in the morning 24h 30 Active Hydroxychloroquine Sulfate 200 MG Orally Twice daily 1 tablet with food or milk Active RESULTS No Results PROCEDURES No Known procedures INSTRUCTIONS MEDICATIONS ADMINISTERED No Known Medications MEDICAL (GENERAL) HISTORY Type Description Date Medical History CAD--3 stents placed 08-30-15 Medical History hypertension Medical History NSTEMI on 08-30-15 Medical History chest pain/unstable angina Medical History hyperlipidemia Medical History esophageal reflux Medical History Atrial fibrillation Medical History [place] Spotted Tick Fever Medical History pneumonia Surgical History heart cath-3 stents placed in RAC (total occlusion) 08-30-15 Surgical History repeat heart cath--stents patent 08-31-15 Hospitalization History Heart cath with 3 stents placed 08/2015 Hospitalization History cellulitis 07/2017 Hospitalization History Afib 10/26/17 Hospitalization History pnuemonia 08/11-08/14/18
--- OUTSIDE RECORDS SUMMARY | 2019-05-05 08:08 | XMS REPORT ---
Author Author GELY DIAZ Organization [facility] Address [address] [place] [address] Care Team Providers Care Machine Tailer Name Role Phone GELY DIAZ Unavailable PROBLEMS Type Condition ICD9-CM Code BLH46-OH Code Onset Dates Condition Status SNOMED Code Problem Neuropathy G62.9 Active 052409555 Problem Panlobular emphysema J43.1 Active 4188942 Problem Chronic gastric ulcer without hemorrhage and without perforation K25.7 Active 10739405 Problem Drug allergy Z88.9 Active 811781115 Problem Rheumatoid arthritis flare M06.9 Active 911828135 Problem Primary osteoarthritis involving multiple joints M15.0 Active 502761124 Problem Chronic atrial fibrillation I48.2 Active 588963096 Problem Rheumatoid arthritis of left hand without organ or system involvement with positive rheumatoid factor M05.742 Active 824718443 Problem 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 M05.741 Active 171517061 Problem GERD (gastroesophageal reflux disease) K21.9 Active 772757094 Problem History of CT (myocardial infarction) I25.2 Active 655855282 Problem Hyperlipidemia E78.5 Active 54096856 Problem Hypertension I10 Active 62580922 Problem Coronary artery disease I25.10 Active 89815533 Problem History of nicotine dependence Z87.891 Active 89808970 Problem Arthritis M19.90 Active 1915821 ALLERGIES No Known Allergies ENCOUNTERS Encounter Location Date Diagnosis [facility] [id number], [place] [address] Sep, Community acquired pneumonia of right lower lobe of lung J18.1 and Encounter for immunization Z23 [facility] [id number], [place] [address] Sep, Community acquired pneumonia of right lower lobe of lung J18.1 [facility] [id number], [place] [address] Aug, Pneumonia of right lower lobe due to infectious organism J18.1 [facility] [address], [place] [address] Aug, Pneumonia of right lower lobe due to infectious organism J18.1 and Drug allergy Z88.9 [facility] [address], [place] [address] Aug, [facility] [id number] [place] [address] Aug, Pneumonia of right lower lobe due to infectious organism J18.1 and 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 M05.741 [facility] [address] [place] [address] Aug, Fever and chills R50.9 and Pneumonia of right lower lobe due to infectious organism J18.1 [address] [address] [place] [address] Jan, 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 M05.741 [place] [id number] [place] [address] Jan, [place] [address] [place] [address] Jan, Rheumatoid arthritis of left hand without organ or system involvement with positive rheumatoid factor M05.742 [place] [id number] [place] [address] Dec, 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 M05.741 [place] [address] [place] [address] Dec, 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 M05.741 and Rheumatoid arthritis of left hand without organ or system involvement with positive rheumatoid factor M05.742 [place] [address] [place] [address] Dec, Panlobular emphysema J43.1 [facility] [id number] [place] [address] 13 Dec, 2017 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 M05.741 ; Rheumatoid arthritis of left hand without organ or system involvement with positive rheumatoid factor M05.742 and Rheumatoid arthritis flare M06.9 [facility] [id number] [place] [address] Dec, Primary osteoarthritis involving multiple joints M15.0 and Chronic atrial fibrillation I48.2 [place] [id number] [place] [address] Nov, Arthritis M19.90 and Myalgia M79.1 [facility] [id number] [place] [address] Nov, [facility] [id number] [place] [address] Nov, [facility] [id number] [place] [address] Oct, Panlobular emphysema J43.1 and Chronic atrial fibrillation I48.2 [place] [id number] [place] [address] Sep, Arthritis M19.90 and Chronic gastric ulcer without hemorrhage and without perforation K25.7 [facility] [id number] [place] [address] Aug, [place] [id number] [place] [phone] Aug, [facility] [id number] [place] [address] Aug, [facility] [id number] [place] [address] Jul, Neuropathy G62.9 and Arthritis M19.90 [place] [id number] [place] [address] Jun, Arthritis M19.90 [facility] [id number] [place] [phone] May, Pain in joints M25.50 [facility] [id number] [place] [address] Apr, Other malaise R53.81 [place] [id number] [place] [address] Sep, [place] [address] [address] Sep, Routine adult health maintenance Z00.00 ; Hypertension I10 ; Hyperlipidemia E78.5 ; History of CT (myocardial infarction) I25.2 and Bronchitis J40 [address] [address] [address] [address] Sep, [place] [id number] [place] [address] Jan, [place] [id number] [place] [phone] Jan, [place] [id number] [place] [phone] 08 Aug, 2013 IMMUNIZATIONS Vaccine Route Administration Date Status TDAP (BOOSTRIX) IM Intramuscular Sep 09, 2018 Administered FLULAVAL QUAD 0.5ML (6 MO & UP) 2018 IM Intramuscular Sep 09, 2018 Administered PPSV23 (PNEUMOVAX) IM Intramuscular Sep 09, 2018 Administered SOCIAL HISTORY Never Assessed REASON FOR VISIT Pneumonia F/U Ahsan Mesa , feeling better but arthritis is severe enedina Foreman mA do all shots in visit Ahsan Mesa PLAN OF CARE Activity Details Follow Up prn Reason: VITAL SIGNS Height 71 in 2018-09-09 Weight 153 lbs 2018-09-09 Temperature 97.3 degrees Fahrenheit 2018-09-09 Heart Rate 74 bpm 2018-09-09 Respiratory Rate 20 2018-09-09 Oximetry on room air:97 % 2018-09-09 BMI 21.34 kg/m2 2018-09-09 Blood pressure systolic 110 mmHg 2018-09-09 Blood pressure diastolic 64 mmHg 2018-09-09 MEDICATIONS Medication Instructions Dosage Frequency Start Date End Date Duration Status Diltiazem HCl ER 240 MG Orally Once a day 1 capsule on an empty stomach in the morning 24h 30 Active Eliquis 5 mg Orally 2 times a day 1 tablet 12h 30 Active Hydroxychloroquine Sulfate 200 MG Orally Twice daily 1 tablet with food or milk Active Metoprolol Tartrate 25 MG Orally Twice a day 1 tablet with food 12h 30 day(s) Active Humira 20 MG/0.4ML as directed Active Asmanex HFA 100 MCG/ACT Inhalation Twice a day 2 puffs 12h Dec, 30 days Active RESULTS No Results PROCEDURES Procedure Date Ordered Result Body Site FLULAVAL QUAD 0.5ML (6 MO AND UP) 2017Sep 09, 2018 PPSV23 (PNEUMOVAX) Sep 09, 2018 TDAP (BOOSTRIX) Sep 09, 2018 IMMUNIZATION ADMIN, EACH ADD (please include units) Sep 09, 2018 SINGLE IMMUNIZATION ADMIN Sep 09, 2018 INSTRUCTIONS MEDICATIONS ADMINISTERED No Known Medications MEDICAL (GENERAL) HISTORY Type Description Date Medical History CAD--3 stents placed 08-30-15 Medical History hypertension Medical History NSTEMI on 08-30-15 Medical History chest pain/unstable angina Medical History hyperlipidemia Medical History esophageal reflux Medical History Atrial fibrillation Medical History [place] Spotted Tick Fever Medical History pneumonia Surgical History heart cath-3 stents placed in RAC (total occlusion) 08-30-15 Surgical History repeat heart cath--stents patent 08-31-15 Hospitalization History Heart cath with 3 stents placed 08/2015 Hospitalization History cellulitis 07/2017 Hospitalization History Afib 10/26/17 Hospitalization History pnuemonia 08/11-08/14/18
--- OUTSIDE RECORDS SUMMARY | 2019-05-05 08:08 | XMS REPORT ---
Author Author GELY DIAZ Organization [facility] Address [address] [place] [address] Care Team Providers Care Hospice Director Name Role Phone GELY DIAZ Unavailable PROBLEMS Type Condition ICD9-CM Code LAL29-NF Code Onset Dates Condition Status SNOMED Code Problem Neuropathy G62.9 Active 581335987 Problem Panlobular emphysema J43.1 Active 0620636 Problem Chronic gastric ulcer without hemorrhage and without perforation K25.7 Active 17766959 Problem Drug allergy Z88.9 Active 152538072 Problem Rheumatoid arthritis flare M06.9 Active 969771123 Problem Primary osteoarthritis involving multiple joints M15.0 Active 942098089 Problem Chronic atrial fibrillation I48.2 Active 708252048 Problem Rheumatoid arthritis of left hand without organ or system involvement with positive rheumatoid factor M05.742 Active 934999559 Problem 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 M05.741 Active 715197241 Problem GERD (gastroesophageal reflux disease) K21.9 Active 105586432 Problem History of [place] (myocardial infarction) I25.2 Active 301404424 Problem Hyperlipidemia E78.5 Active 36323564 Problem Hypertension I10 Active 58071058 Problem Coronary artery disease I25.10 Active 07003754 Problem History of nicotine dependence Z87.891 Active 70134278 Problem Arthritis M19.90 Active 0576936 ALLERGIES No Known Allergies ENCOUNTERS Encounter Location Date Diagnosis [facility] [id number] [address] Sep, Community acquired pneumonia of right lower lobe of lung J18.1 and Encounter for immunization Z23 [facility] [id number] [address] Sep, Community acquired pneumonia of right lower lobe of lung J18.1 [facility] [id number] [address] Aug, Pneumonia of right lower lobe due to infectious organism J18.1 [facility] [address] [address] Aug, Pneumonia of right lower lobe due to infectious organism J18.1 and Drug allergy Z88.9 [facility] [address] [address] Aug, [facility] [id number] [place] [address] Aug, Pneumonia of right lower lobe due to infectious organism J18.1 and 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 M05.741 [facility] [address] [place] [address] Aug, Fever and chills R50.9 and Pneumonia of right lower lobe due to infectious organism J18.1 [address] [address] [place] [address] Jan, 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 M05.741 [place] [id number] [place] [address] Jan, [place] [address] [place] [address] Jan, Rheumatoid arthritis of left hand without organ or system involvement with positive rheumatoid factor M05.742 [place] [id number] [place] [address] Dec, 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 M05.741 [address] [address] [place] [address] Dec, 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 M05.741 and Rheumatoid arthritis of left hand without organ or system involvement with positive rheumatoid factor M05.742 [address] [address] [place] [address] Dec, Panlobular emphysema J43.1 [facility] [id number] [place] [address] 13 Dec, 2017 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 M05.741 ; Rheumatoid arthritis of left hand without organ or system involvement with positive rheumatoid factor M05.742 and Rheumatoid arthritis flare M06.9 [facility] [id number] [place] [address] Dec, Primary osteoarthritis involving multiple joints M15.0 and Chronic atrial fibrillation I48.2 [place] [id number] [place] [address] Nov, Arthritis M19.90 and Myalgia M79.1 [facility] [id number] [place] [address] Nov, [facility] [id number] [place] [address] Nov, [facility] [id number] [place] [address] Oct, Panlobular emphysema J43.1 and Chronic atrial fibrillation I48.2 [place] [id number] [place] [address] Sep, Arthritis M19.90 and Chronic gastric ulcer without hemorrhage and without perforation K25.7 [facility] [id number] [place] [address] Aug, [place] [id number] [place] [address] Aug, [facility] [id number] [place] [address] Aug, [facility] [id number] [place] [address] Jul, Neuropathy G62.9 and Arthritis M19.90 [address] [id number] [place] [address] Jun, Arthritis M19.90 [facility] [id number] [place] [address] May, Pain in joints M25.50 [facility] [id number] [place] [address] Apr, Other malaise R53.81 [place] [id number] [place] [address] Sep, [place] [address] [address] Sep, Routine adult health maintenance Z00.00 ; Hypertension I10 ; Hyperlipidemia E78.5 ; History of [place] (myocardial infarction) I25.2 and Bronchitis J40 [place] [address] [address] Sep, [place] [id number] [place] [address] Jan, [place] [id number] [place] [address] Jan, [place] [id number] [place] [address] 08 Aug, 2013 IMMUNIZATIONS No Known Immunizations SOCIAL HISTORY Never Assessed REASON FOR VISIT Pneumonia f/u, c/o DAY. Holden RN PLAN OF CARE Activity Details Follow Up 6 days Reason: VITAL SIGNS Height 71 in 2018-09-03 Weight 157.0 lbs 2018-09-03 Temperature 98.2 degrees Fahrenheit 2018-09-03 Heart Rate 83 bpm 2018-09-03 Respiratory Rate 20 2018-09-03 Oximetry 95 % 2018-09-03 BMI 21.89 kg/m2 2018-09-03 Blood pressure systolic 108 mmHg 2018-09-03 Blood pressure diastolic 56 mmHg 2018-09-03 MEDICATIONS Medication Instructions Dosage Frequency Start Date End Date Duration Status Metoprolol Tartrate 25 MG Orally Twice a day 1 tablet with food 12h 30 day(s) Active Diltiazem HCl ER 240 MG Orally Once a day 1 capsule on an empty stomach in the morning 24h 30 Active Hydroxychloroquine Sulfate 200 MG Orally Twice daily 1 tablet with food or milk Active Humira 20 MG/0.4ML as directed Active Asmanex HFA 100 MCG/ACT Inhalation Twice a day 2 puffs 12h Dec, 30 days Active Eliquis 5 mg Orally 2 times a day 1 tablet 12h Oct, Active RESULTS No Results PROCEDURES No Known procedures INSTRUCTIONS MEDICATIONS ADMINISTERED No Known Medications MEDICAL (GENERAL) HISTORY Type Description Date Medical History CAD--3 stents placed 08-30-15 Medical History hypertension Medical History NSTEMI on 08-30-15 Medical History chest pain/unstable angina Medical History hyperlipidemia Medical History esophageal reflux Medical History Atrial fibrillation Medical History [place] [place] Spotted Tick Fever Medical History pneumonia Surgical History heart cath-3 stents placed in RAC (total occlusion) 08-30-15 Surgical History repeat heart cath--stents patent 08-31-15 Hospitalization History Heart cath with 3 stents placed 08/2015 Hospitalization History cellulitis 07/2017 Hospitalization History Afib 10/26/17 Hospitalization History pnuemonia 08/11-08/14/18
--- OUTSIDE RECORDS SUMMARY | 2019-05-05 08:08 | XMS REPORT ---
Author Author JORGE JACKSON Organization [facility] Address [address] [place] [address] Care Team Providers Care Reconnaissance Man Name Role Phone JORGE JACKSON Unavailable PROBLEMS Type Condition ICD9-CM Code RHO20-AL Code Onset Dates Condition Status SNOMED Code Problem Neuropathy G62.9 Active 440571884 Problem Panlobular emphysema J43.1 Active 5265524 Problem Chronic gastric ulcer without hemorrhage and without perforation K25.7 Active 80840612 Problem Drug allergy Z88.9 Active 844941560 Problem Rheumatoid arthritis flare M06.9 Active 538371394 Problem Primary osteoarthritis involving multiple joints M15.0 Active 363826803 Problem Chronic atrial fibrillation I48.2 Active 036751580 Problem Rheumatoid arthritis of left hand without organ or system involvement with positive rheumatoid factor M05.742 Active 254186718 Problem 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 M05.741 Active 030502466 Problem GERD (gastroesophageal reflux disease) K21.9 Active 995925965 Problem History of DC (myocardial infarction) I25.2 Active 118686292 Problem Hyperlipidemia E78.5 Active 36291255 Problem Hypertension I10 Active 24468566 Problem Coronary artery disease I25.10 Active 08387921 Problem History of nicotine dependence Z87.891 Active 58496919 Problem Arthritis M19.90 Active 1323006 ALLERGIES No Information ENCOUNTERS Encounter Location Date Diagnosis [facility] [address] [facility] [id number] [address] Sep, Pneumonia of right lower lobe due to infectious organism J18.1 [facility] [address] [id number] [address] Sep, [facility] [address] [facility] [id number] [address] Sep, Pneumonia of right lower lobe due to infectious organism J18.1 [facility] [address] [address] Sep, Community acquired pneumonia of right lower lobe of lung J18.1 and Encounter for immunization Z23 [facility] [address] [place] [address] Sep, Community acquired pneumonia of right lower lobe of lung J18.1 [facility] [id number] [place] [address] Aug, Pneumonia of right lower lobe due to infectious organism J18.1 [place] [id number] [place] [address] Aug, Pneumonia of right lower lobe due to infectious organism J18.1 and Drug allergy Z88.9 [place] [id number] [place] [address] Aug, [place] [id number] [place] [address] Aug, Pneumonia of right lower lobe due to infectious organism J18.1 and 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 M05.741 [facility] [address] [place] [address] Aug, Fever and chills R50.9 and Pneumonia of right lower lobe due to infectious organism J18.1 [facility] [address] [place] [address] Jan, 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 M05.741 [place] [id number] [place] [address] Jan, [place] [id number] [place] [address] Jan, Rheumatoid arthritis of left hand without organ or system involvement with positive rheumatoid factor M05.742 [facility] [id number] [place] [address] Dec, 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 M05.741 [place] [id number] [place] [address] Dec, 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 M05.741 and Rheumatoid arthritis of left hand without organ or system involvement with positive rheumatoid factor M05.742 [facility] [id number] [place] [address] Dec, Panlobular emphysema J43.1 [place] [id number] [place] [address] Dec, 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 M05.741 ; Rheumatoid arthritis of left hand without organ or system involvement with positive rheumatoid factor M05.742 and Rheumatoid arthritis flare M06.9 [place] [id number] [place] [address] Dec, Primary osteoarthritis involving multiple joints M15.0 and Chronic atrial fibrillation I48.2 [place] [id number] [place] [address] Nov, Arthritis M19.90 and Myalgia M79.1 [facility] [address] [place] [address] Nov, [facility] [id number] [place] [address] Nov, [place] [id number] [place] [address] Oct, Panlobular emphysema J43.1 and Chronic atrial fibrillation I48.2 [place] [id number] [place] [address] Sep, Arthritis M19.90 and Chronic gastric ulcer without hemorrhage and without perforation K25.7 [place] [id number] [place] [address] Aug, [facility] [id number] [place] [address] Aug, [facility] [id number] [place] [address] Aug, [facility] [id number] [place] [address] Jul, Neuropathy G62.9 and Arthritis M19.90 [facility] [id number] [place] [address] Jun, Arthritis M19.90 [facility] [address] [address] May, Pain in joints M25.50 [facility] [id number] [place] [address] Apr, Other malaise R53.81 [place] [id number] [place] [address] Sep, [place] [address] [address] Sep, Routine adult health maintenance Z00.00 ; Hypertension I10 ; Hyperlipidemia E78.5 ; History of DC (myocardial infarction) I25.2 and Bronchitis J40 [place] [id number] [place] [address] Sep, [place] [id number] [place] [address] Jan, [place] [id number] [place] [address] Jan, [place] [id number] [place] [address] Aug, IMMUNIZATIONS No Known Immunizations SOCIAL HISTORY Never Assessed REASON FOR VISIT Triage - final check up for work [employer] FMLA papers filled out - fron t desk has them [employer] mA , feeling better since taking mucinex - [employer] [place] PLAN OF CARE VITAL SIGNS Height 71 in 2018-09-24 Weight 160.3 lbs 2018-09-24 Temperature 97.3 degrees Fahrenheit 2018-09-24 Heart Rate 79 bpm 2018-09-24 Respiratory Rate 20 2018-09-24 BMI 22.35 kg/m2 2018-09-24 Blood pressure systolic 106 mmHg 2018-09-24 Blood pressure diastolic 68 mmHg 2018-09-24 MEDICATIONS Medication Instructions Dosage Frequency Start Date End Date Duration Status Asmanex HFA 100 MCG/ACT Inhalation Twice a day 2 puffs 12h Dec, 30 days Active Eliquis 5 mg Orally 2 times a day 1 tablet 12h 30 Active Guaifenesin 400 MG Orally 4 times [...] reflux Medical History Atrial fibrillation Medical History [place] Tick Fever Medical History pneumonia Surgical History heart cath-3 stents placed in RAC (total occlusion) 08-30-15 Surgical History repeat heart cath--stents patent 08-31-15 Hospitalization History Heart cath with 3 stents placed 08/2015 Hospitalization History cellulitis 07/2017 Hospitalization History Afib 10/26/17 Hospitalization History pnuemonia 08/11-08/14/18
--- OUTSIDE RECORDS SUMMARY | 2019-05-05 08:08 | XMS REPORT ---
Author Author GELY DIAZ Organization [facility] Address [address] [place] [address] Care Team Providers Care Acquisitions Analyst Name Role Phone GELY DIAZ Unavailable PROBLEMS Type Condition ICD9-CM Code MZH38-IX Code Onset Dates Condition Status SNOMED Code Problem Neuropathy G62.9 Active 095490948 Problem Panlobular emphysema J43.1 Active 0034987 Problem Chronic gastric ulcer without hemorrhage and without perforation K25.7 Active 14794871 Problem Drug allergy Z88.9 Active 114376431 Problem Rheumatoid arthritis flare M06.9 Active 566869731 Problem Primary osteoarthritis involving multiple joints M15.0 Active 974387855 Problem Chronic atrial fibrillation I48.2 Active 352937392 Problem Rheumatoid arthritis of left hand without organ or system involvement with positive rheumatoid factor M05.742 Active 221747447 Problem 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 M05.741 Active 275335714 Problem GERD (gastroesophageal reflux disease) K21.9 Active 548899377 Problem History of ND (myocardial infarction) I25.2 Active 586078351 Problem Hyperlipidemia E78.5 Active 82759236 Problem Hypertension I10 Active 29349694 Problem Coronary artery disease I25.10 Active 13242011 Problem History of nicotine dependence Z87.891 Active 65815170 Problem Arthritis M19.90 Active 0274393 ALLERGIES No Known Allergies ENCOUNTERS Encounter Location Date Diagnosis [facility] [id number], [place] [address] Sep, Community acquired pneumonia of right lower lobe of lung J18.1 and Encounter for immunization Z23 [facility] [id number] [address] Sep, Community acquired pneumonia of right lower lobe of lung J18.1 [facility] [id number] [address] Aug, Pneumonia of right lower lobe due to infectious organism J18.1 [facility] [address], [place] [address] Aug, Pneumonia of right lower lobe due to infectious organism J18.1 and Drug allergy Z88.9 [facility] [address], [place] [address] Aug, [facility] [id number] [place] [address] Aug, Pneumonia of right lower lobe due to infectious organism J18.1 and 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 M05.741 [facility] [address] [place] [address] Aug, Fever and chills R50.9 and Pneumonia of right lower lobe due to infectious organism J18.1 [place] [address] [place] [address] Jan, 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 M05.741 [place] [id number] [place] [address] Jan, [place] [address] [place] [address] Jan, Rheumatoid arthritis of left hand without organ or system involvement with positive rheumatoid factor M05.742 [place] [id number] [place] [address] Dec, 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 M05.741 [place] [address] [place] [address] Dec, 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 M05.741 and Rheumatoid arthritis of left hand without organ or system involvement with positive rheumatoid factor M05.742 [place] [address] [place] [address] Dec, Panlobular emphysema J43.1 [facility] [id number] [place] [address] 13 Dec, 2017 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 M05.741 ; Rheumatoid arthritis of left hand without organ or system involvement with positive rheumatoid factor M05.742 and Rheumatoid arthritis flare M06.9 [facility] [id number] [place] [address] Dec, Primary osteoarthritis involving multiple joints M15.0 and Chronic atrial fibrillation I48.2 [place] [id number] [place] [address] Nov, Arthritis M19.90 and Myalgia M79.1 [facility] [id number] [place] [address] Nov, [facility] [id number] [place] [address] Nov, [facility] [id number] [place] [address] Oct, Panlobular emphysema J43.1 and Chronic atrial fibrillation I48.2 [place] [id number] [place] [address] Sep, Arthritis M19.90 and Chronic gastric ulcer without hemorrhage and without perforation K25.7 [facility] [id number] [place] [address] Aug, [place] [id number] [place] [address] Aug, [facility] [id number] [place] [address] Aug, [facility] [id number] [place] [address] Jul, Neuropathy G62.9 and Arthritis M19.90 [place] [id number] [place] [address] Jun, Arthritis M19.90 [facility] [id number] [place] [address] May, Pain in joints M25.50 [facility] [id number] [place] [address] Apr, Other malaise R53.81 [place] [id number] [place] [address] Sep, [place] [address] [address] Sep, Routine adult health maintenance Z00.00 ; Hypertension I10 ; Hyperlipidemia E78.5 ; History of ND (myocardial infarction) I25.2 and Bronchitis J40 [place] [address] [address] Sep, [place] [id number] [place] [address] Jan, [place] [id number] [place] [address] Jan, [place] [id number] [place] [address] 08 Aug, 2013 IMMUNIZATIONS No Known Immunizations SOCIAL HISTORY Never Assessed REASON FOR VISIT Pneumonia f/u Ahsan RODRIGUEZ PLAN OF CARE Activity Details Follow Up 4 days Reason: Pending Test Xray : Chest 2 View (IN HOUSE) VITAL SIGNS Height 71 in 2018-08-30 Weight 162 lbs 2018-08-30 Temperature 97.5 degrees Fahrenheit 2018-08-30 Heart Rate 79 bpm 2018-08-30 Respiratory Rate 20 2018-08-30 BMI 22.59 kg/m2 2018-08-30 Blood pressure systolic 134 mmHg 2018-08-30 Blood pressure diastolic 74 mmHg 2018-08-30 MEDICATIONS Medication Instructions Dosage Frequency Start Date End Date Duration Status Hydroxychloroquine Sulfate 200 MG Orally Twice daily 1 tablet with food or milk Active Diltiazem HCl ER 240 MG Orally Once a day 1 capsule on an empty stomach in the morning 24h 30 Active Eliquis 5 mg Orally 2 times a day 1 tablet 12h Oct, Active Levaquin 750 MG Orally Once a day 1 tablet 24h Aug, Sep, 4 days Active Metoprolol Tartrate 25 MG Orally Twice a day 1 tablet with food 12h 30 day(s) Active Humira 20 MG/0.4ML as directed Active Asmanex HFA 100 MCG/ACT Inhalation Twice a day 2 puffs 12h Dec, 30 days Active RESULTS No Results PROCEDURES Procedure Date Ordered Result Body Site X-RAY EXAM CHEST 2 VIEWS Aug 30, 2018 INSTRUCTIONS MEDICATIONS ADMINISTERED No Known Medications MEDICAL (GENERAL) HISTORY Type Description Date Medical History CAD--3 stents placed 08-30-15 Medical History hypertension Medical History NSTEMI on 08-30-15 Medical History chest pain/unstable angina Medical History hyperlipidemia Medical History esophageal reflux Medical History Atrial fibrillation Medical History [place] Tick Fever Medical History pneumonia Surgical History heart cath-3 stents placed in RAC (total occlusion) 08-30-15 Surgical History repeat heart cath--stents patent 08-31-15 Hospitalization History Heart cath with 3 stents placed 08/2015 Hospitalization History cellulitis 07/2017 Hospitalization History Afib 10/26/17 Hospitalization History pnuemonia 08/11-08/14/18
--- OUTSIDE RECORDS SUMMARY | 2019-05-05 08:08 | XMS REPORT ---
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 Name Role Phone JORGE JACKSON Unavailable PROBLEMS Type Condition ICD9-CM Code ZFD69-KC Code Onset Dates Condition Status SNOMED Code Problem Neuropathy G62.9 Active 749901444 Problem Panlobular emphysema J43.1 Active 1344308 Problem Chronic gastric ulcer without hemorrhage and without perforation K25.7 Active 61590881 Problem Drug allergy Z88.9 Active 588709810 Problem Rheumatoid arthritis flare M06.9 Active 018304236 Problem Primary osteoarthritis involving multiple joints M15.0 Active 098019951 Problem Chronic atrial fibrillation I48.2 Active 554966164 Problem Rheumatoid arthritis of left hand without organ or system involvement with positive rheumatoid factor M05.742 Active 194435400 Problem 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 M05.741 Active 055535174 Problem GERD (gastroesophageal reflux disease) K21.9 Active 612941794 Problem History of UT (myocardial infarction) I25.2 Active 460032447 Problem Hyperlipidemia E78.5 Active 54523098 Problem Hypertension I10 Active 46236707 Problem Coronary artery disease I25.10 Active 09120489 Problem History of nicotine dependence Z87.891 Active 58247554 Problem Arthritis M19.90 Active 1083088 ALLERGIES No Known Allergies ENCOUNTERS Encounter Location Date Diagnosis [facility] [address] [facility] [id number] [address] Sep, Pneumonia of right lower lobe due to infectious organism J18.1 [facility] [id number] [address] Sep, [facility] [address] [facility] [id number] [address] Sep, Pneumonia of right lower lobe due to infectious organism J18.1 [facility] [id number] [address] Sep, Community acquired pneumonia of right lower lobe of lung J18.1 and Encounter for immunization Z23 [facility] [id number] [place] [address] Sep, Community acquired pneumonia of right lower lobe of lung J18.1 [facility] [id number] [place] [address] Aug, Pneumonia of right lower lobe due to infectious organism J18.1 [facility] [id number] [place] [address] Aug, Pneumonia of right lower lobe due to infectious organism J18.1 and Drug allergy Z88.9 [place] [facility] [id number] [place] [address] Aug, [place] [facility] [id number] [place] [address] Aug, Pneumonia of right lower lobe due to infectious organism J18.1 and 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 M05.741 [facility] [id number] [place] [address] Aug, Fever and chills R50.9 and Pneumonia of right lower lobe due to infectious organism J18.1 [facility] [id number] [place] [address] Jan, 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 M05.741 [place] [id number] [place] [address] Jan, [place] [id number] [place] [address] Jan, Rheumatoid arthritis of left hand without organ or system involvement with positive rheumatoid factor M05.742 [facility] [id number] [place] [address] Dec, 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 M05.741 [facility] [id number] [place] [address] Dec, 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 M05.741 and Rheumatoid arthritis of left hand without organ or system involvement with positive rheumatoid factor M05.742 [facility] [id number] [place] [address] Dec, Panlobular emphysema J43.1 [facility] [id number] [place] [address] Dec, 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 M05.741 ; Rheumatoid arthritis of left hand without organ or system involvement with positive rheumatoid factor M05.742 and Rheumatoid arthritis flare M06.9 [facility] [id number] [place] [address] Dec, Primary osteoarthritis involving multiple joints M15.0 and Chronic atrial fibrillation I48.2 [facility] [id number] [place] [address] Nov, Arthritis M19.90 and Myalgia M79.1 [facility] [id number] [place] [address] Nov, [facility] [id number] [place] [address] Nov, [place] [id number] [place] [address] Oct, Panlobular emphysema J43.1 and Chronic atrial fibrillation I48.2 [place] [id number] [place] [address] Sep, Arthritis M19.90 and Chronic gastric ulcer without hemorrhage and without perforation K25.7 [facility] [id number] [place] [address] Aug, [facility] [id number] [place] [address] Aug, [facility] [id number] [place] [address] Aug, [facility] [id number] [place] [address] Jul, Neuropathy G62.9 and Arthritis M19.90 [facility] [id number] [place] [address] Jun, Arthritis M19.90 [facility] [id number] [place] [address] May, Pain in joints M25.50 [facility] [id number] [place] [address] Apr, Other malaise R53.81 [place] [id number] [place] [address] Sep, [place] [facility] [id number] [place] [address] Sep, Routine adult health maintenance Z00.00 ; Hypertension I10 ; Hyperlipidemia E78.5 ; History of UT (myocardial infarction) I25.2 and Bronchitis J40 [facility] [facility] [id number] [place] [address] Sep, [place] [id number] [place] [address] Jan, [place] [id number] [place] [phone] Jan, [place] [id number] [place] [address] Aug, IMMUNIZATIONS No Known Immunizations SOCIAL HISTORY Never Assessed REASON FOR VISIT [facility] follow up, Reports was told still has pneumonia, still taking abx from [facility] PLAN OF CARE VITAL SIGNS Height 71 in 2018-09-20 Weight 162.1 lbs 2018-09-20 Temperature 97.5 degrees Fahrenheit 2018-09-20 Heart Rate 68 bpm 2018-09-20 Respiratory Rate 20 2018-09-20 BMI 22.61 kg/m2 2018-09-20 Blood pressure systolic 100 mmHg 2018-09-20 Blood pressure diastolic 58 mmHg 2018-09-20 MEDICATIONS Medication Instructions Dosage Frequency Start Date End Date Duration Status Guaifenesin 400 MG Orally 4 times a day 1 tablet as needed 6h Sep, Active Eliquis 5 mg Orally 2 times [...] Active Humira 20 MG/0.4ML as directed Active RESULTS No Results PROCEDURES No Known procedures INSTRUCTIONS MEDICATIONS ADMINISTERED No Known Medications MEDICAL (GENERAL) HISTORY Type Description Date Medical History CAD--3 stents placed 08-30-15 Medical History hypertension Medical History NSTEMI on 08-30-15 Medical History chest pain/unstable angina Medical History hyperlipidemia Medical History esophageal reflux Medical History Atrial fibrillation Medical History [place] Fever Medical History pneumonia Surgical History heart cath-3 stents placed in RAC (total occlusion) 08-30-15 Surgical History repeat heart cath--stents patent 08-31-15 Hospitalization History Heart cath with 3 stents placed 08/2015 Hospitalization History cellulitis 07/2017 Hospitalization History Afib 10/26/17 Hospitalization History pnuemonia 08/11-08/14/18
[2019-05-05 08:44] LABS: BASOPHILS % (AUTO) 0 % (0-10); EOSINOPHILS # (AUTO) 0.2 10^3/uL (0.0-0.3); EOSINOPHILS % (AUTO) 2 % (0-10); HEMATOCRIT 34 % (40-54); HEMOGLOBIN 10.9 G/DL (13.3-17.7); LYMPHOCYTES # (AUTO) 1.4 X 10^3 (1.0-4.0); LYMPHOCYTES % (AUTO) 18 % (12-44); MEAN CORPUSCULAR HEMOGLOBIN 28 PG (25-34); MEAN CORPUSCULAR HGB CONC 32 G/DL (32-36); MEAN CORPUSCULAR VOLUME 85 FL (80-99); MEAN PLATELET VOLUME 8.4 FL (7.4-10.4); MONOCYTES # (AUTO) 0.7 X 10^3 (0.0-1.0); MONOCYTES % (AUTO) 10 % (0-12); NEUTROPHILS # (AUTO) 5.4 X 10^3 (1.8-7.8); NEUTROPHILS % (AUTO) 70 % (42-75); PLATELET COUNT 363 10^3/uL (130-400); RED CELL DISTRIBUTION WIDTH 14.8 % (10.0-14.5); WHITE BLOOD COUNT 7.7 10^3/uL (4.3-11.0)
[2019-05-05] MEDS ORDERED: fentaNYL INJECTION 100 MCG/2 ML AMP IVP ONE ×2 (08:45→12:00)
[2019-05-05] MEDS ORDERED: FAMOTIDINE 20MG/2ML IV (PEPCID) IVP ONE (08:45)
[2019-05-05 08:53] LABS: PROTHROMBIN TIME PATIENT 13.6 SEC (12.2-14.7)
[2019-05-05 09:03] LABS: ALANINE AMINOTRANSFERASE 8 U/L (0-55); ALBUMIN 3.4 GM/DL (3.2-4.5); ALKALINE PHOSPHATASE 88 U/L (40-136); BILIRUBIN,TOTAL 0.5 MG/DL (0.1-1.0); BUN/CREATININE RATIO 21; CALCIUM 8.8 MG/DL (8.5-10.1); CARBON DIOXIDE 24 MMOL/L (21-32); CHLORIDE 106 MMOL/L (98-107); CREATININE SERUM 1.16 MG/DL (0.60-1.30); GFR ESTIMATED > 60; GLUCOSE 93 MG/DL (70-105); POTASSIUM 4.2 MMOL/L (3.6-5.0); SODIUM 137 MMOL/L (135-145); TOTAL PROTEIN 6.1 GM/DL (6.4-8.2)
--- NOTE | 2019-05-05 09:28 | Diagnostic Imaging Report ---
EXAMINATION: PA and lateral chest at 9:02 AM INDICATION: Chest pressure The heart size is within normal limits and stable when compared to 09/14/2018. The chronic pulmonary changes noted on the prior study are again visualized. There is a vague area of increased density overlying the right lower lobe on the PA view. This may be secondary to superimposition of the breast tissue as opposed to pneumonia/atelectasis as there is no corresponding abnormality seen on the lateral view. Even so, clinical followup is recommended. The lungs are otherwise generally clear. There is no sign of pleural effusion. Mediastinum is not widened. The osseous structures are intact. IMPRESSION: 1. There is a question of mild pneumonia/atelectasis involving the right lung base. Clinical followup is recommended. 2. There are chronic pulmonary changes evident but there is no sign of an acute cardiopulmonary abnormality otherwise. Dictated by: Dictated on workstation # [id number]
[2019-05-05] MEDS ORDERED: NS 100 ML (IVPB) BAG IV ONE (09:30)
[2019-05-05] MEDS ORDERED: HOLD METFORMIN - RECEIVED CONTRAST 20 ML VIAL IV SCH (09:30)
[2019-05-05] MEDS ORDERED: IOHEXOL 350 MG/ML 100 ML (OMNIPAQUE 350) VIAL IV ONE (09:30)
[2019-05-05 09:37] LABS: BILIRUBIN,URINE NEGATIVE (NEGATIVE); CLARITY,URINE CLEAR; COLOR,URINE YELLOW; GLUCOSE, URINE (UA) NEGATIVE (NEGATIVE); KETONES,URINE NEGATIVE (NEGATIVE); LEUKOCYTE ESTERASE ,URINE NEGATIVE (NEGATIVE); NITRITE,URINE NEGATIVE (NEGATIVE); PH,URINE 8 (5-9); PROTEIN,URINE NEGATIVE (NEGATIVE); UROBILINOGEN,URINE NORMAL (NORMAL)
[2019-05-05 09:50] LABS: BACTERIA,URINE NEGATIVE /HPF
--- NOTE | 2019-05-05 10:11 | NUR ---
RESTING IN BED ET DENIES NEEDS AT THIS TIME. STATES FENTENYL HAS HELPED WITH THE PAIN.
--- NOTE | 2019-05-05 10:21 | Diagnostic Imaging Report ---
PROCEDURE: CT abdomen and pelvis with contrast. TECHNIQUE: Multiple contiguous axial images were obtained through the abdomen and pelvis after administration of intravenous contrast. Auto Exposure Controls were utilized during the CT exam to meet ALARA standards for radiation dose reduction. INDICATION: Stomach pain. Ulcer. COMPARISON: CT abdomen and pelvis performed on 08/20/2017. FINDINGS: There is a new 7 mm subpleural nodule in the lateral basal segment of the right lower lobe (image 5 series 2). Emphysematous changes are noted in both lung bases. There is prominent interlobular and intralobular septal thickening in the right lower lobe, likely on the basis of fibrosis. The liver, gallbladder, spleen and pancreas are unremarkable. There is mild thickening of the left adrenal gland, without focal nodule, likely on the basis of hyperplasia. The right adrenal gland is normal. The kidneys are symmetric in size and demonstrate normal enhancement, without evidence of renal calculus, hydronephrosis, or suspicious mass. No ureteral abnormality is identified. The stomach and duodenum are normal. The small bowel and colon are normal in course and caliber, without evidence of wall thickening or obstruction. The appendix is normal. No pneumoperitoneum, abdominal free fluid, or loculated collection. No enlarged lymph nodes. There is mild aneurysmal dilatation of the infrarenal abdominal aorta, which measures up to 3.6 cm in greatest AP diameter, slightly increased from 2017 at which time it measured approximately 3.3 cm in diameter. Mild amount of intramural thrombus, similar in appearance to prior exam is demonstrated. There is marked atherosclerotic calcification of the abdominal aorta and iliac arteries. There are no findings to suggest venous thrombosis. The bladder is normal, within the limits of underdistention. The prostate gland is not enlarged. No pelvic free fluid is appreciated. The abdominal wall is unremarkable. Multilevel degenerative changes involving the spine. No acute osseous abnormality. IMPRESSION: 1. No acute abdominal or pelvic pathology. No findings to account for the patient's symptoms. 2. Infrarenal abdominal aortic aneurysm measuring up to 3.6 cm, slightly increased from the prior exam. 3. There is a new 7 mm subpleural nodule in the right lower lobe. Given emphysematous changes in the lung bases, a followup CT in 6-12 months is recommended to demonstrate stability, versus dedicated chest CT on a nonemergent basis to serve as a baseline. Dictated by: Dictated on workstation # [id number]
--- NOTE | 2019-05-05 10:33 | ED Abdominal Pain ---
General Chief Complaint: Chest Pain Stated Complaint: CHEST PAIN Nursing Triage Note: AMBULATED TO ROOM 04 WITH COMPLAINTS OF CHEST PAIN STARTING AT 0300. PAIN IS REPRODUCABLE. Sepsis Screen: No Definite Risk Source of Information: Patient Exam Limitations: No Limitations History of Present Illness Date Seen by Provider: May 05, 2019 Time Seen by Provider: 08:34 Initial Comments This 63-year-old gentleman presents to the emergency room with complaints of steady chest pain that started around 03:00. Pain is reproducible to palpation. After further questioning and examination, his pain is not actually in the chest that is in the epigastrium where he has tenderness as well. The pain radiates up into his chest. He reports the pain initially as a 10 on the pain scale. Nothing in particular seems to make it better or worse. He last ate yesterday around 15:00. He last drank water around 04:00. He is on Eliquis. He does have a history of ulcers but he is not currently taking any antacid therapies. Allergies and Home Medications Allergies Coded Allergies: No Known Drug Allergies (Unverified , 08/20/17) Home Medications Apixaban 5 Mg Tablet, 5 MG PO BID, (Reported) Diltiazem HCl 240 Mg Cap.er.24h, 240 MG PO DAILY, (Reported) Famotidine 20 Mg Tablet, 20 MG PO BID, (Reported) Hydroxychloroquine Sulfate 200 Mg Tablet, 200 MG PO BID, (Reported) Metoprolol Tartrate 25 Mg Tablet, 25 MG PO BID, (Reported) Mometasone Furoate 13 Gm Hfa.aer.ad, 1 PUFF INH BID PRN for SHORTNESS OF BREATH, (Reported) Omeprazole 20 Mg Capsule.dr, 20 MG PO BID, (Reported) Ondansetron 4 Mg Tab.rapdis, 4 MG PO Q4H PRN for NAUSEA/VOMITING-1ST LINE, (Reported) Sucralfate 1 Gm Tablet, 1 GM PO QID, (Reported) TAKE 30 MINUTES BEFORE MEALS AND AT BEDTIME. MAY CRUSH AND MIX WITH 5-10 ML OF WATER TO MAKE SLURRY FOR BETTER EFFECT Tofacitinib Citrate 5 Mg Tablet, MG PO DAILY, (Reported) THIS IS A SAMPLE HE GETS FROM THE OFFICE AND THE STRENGTH IS UNKNOWN. Patient Home Medication List Home Medication List Reviewed: Yes Review of Systems Review of Systems Constitutional: no symptoms reported EENTM: No Symptoms Reported Respiratory: No Symptoms Reported Cardiovascular: No Symptoms Reported Gastrointestinal: See HPI Genitourinary: No Symptoms Reported Musculoskeletal: no symptoms reported Skin: no symptoms reported Psychiatric/Neurological: No Symptoms Reported Endocrine: No Symptoms Reported Hematologic/Lymphatic: No Symptoms Reported Past Vdcycbw-Dejjsq-Yhwmva Hx Past Med/Social Hx: Reviewed Nursing Past Med/Soc Hx Patient Social History Alcohol Use: Denies Use Recreational Drug Use: No Smoking Status: Current Everyday Smoker Type Used: Cigarettes Former Smoker, Quit: Feb 02, 2018 2nd Hand Smoke Exposure: Yes Recent Foreign Travel: No Contact w/Someone Who Travel: No Recent Infectious Disease Expo: No Recent Hopitalizations: No Immunizations Up To Date Tetanus Booster (TDap): Unknown Date of Pneumonia Vaccine: Sep 09, 2018 Date of Influenza Vaccine: Sep 09, 2018 Seasonal Allergies Seasonal Allergies: No Past Medical History Surgeries: Yes (CARDIAC CATH--STENTS X 3) Cardiac, Coronary Stent Respiratory: Yes Pneumonia, COPD Currently Using CPAP: No Currently Using BIPAP: No Cardiac: Yes (STENTS, cath,) Atrial Fibrillation, Coronary Artery Disease, Heart Attack, High Cholesterol, Hypertension Neurological: No Reproductive Disorders: No Sexually Transmitted Disease: No Genitourinary: No Gastrointestinal: Yes Gastroesophageal Reflux, Ulcer Musculoskeletal: Yes (SHOULDER, ELBOW, HAND PAIN, PAIN FROM [place] SPOTTED FEVER ) Arthritis, Rheumatoid Arthritis Endocrine: No HEENT: No Cancer: No Psychosocial: No Integumentary: No Blood Disorders: No Adverse Reaction/Blood Tranf: No Family Medical History Cardiovascular disease Cataracts Diabetes mellitus Glaucoma Hypertension Myocardial infarction Respiratory disorder Thyroid disease Visual disorder No Family History of: AIDS Abdominal aortic aneurysm Winona's disease Alcoholism Alzheimer's disease Aphasia Arthritis Asthma Cancer of mouth Colon cancer Completed stroke Congenital disease Congenital heart disease Coronary thrombosis Cystic fibrosis Deafness or hearing loss Dementia Drug abuse Dysphasia Fibrocystic disease of breast Gastroenteritis Headache disorder Hypercholesterolemia Infertility Kidney disease Neoplasm Not obtainable due to adoption Osteoporosis Parkinson's disease Prostate cancer Psychosocial problem Seizure disorder Severe allergy Tuberculosis Diabetes, Hypertension Physical Exam Vital Signs Vital Signs - First Documented 05/05/19 07:56 Temp 98.0 Pulse 70 Resp 16 B/P (MAP) 142/84 (103) Pulse Ox 96 O2 Delivery Room Air Capillary Refill : Less Than 3 Seconds Height/Weight/BMI Height: 6'1.00" Weight: 160lbs. 0.0oz. 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, no motor/sensory deficits, alert, normal mood/affect, oriented x 3 Skin: normal color, warm/dry Progress/Results/Core Measures Results/Orders Lab Results Laboratory Tests Test 05/05/19 08:05 05/05/19 09:25 Range/Units White Blood Count 7.7 4.3-11.0 10^3/uL Red Blood Count 3.95 L 4.35-5.85 10^6/uL Hemoglobin 10.9 L 13.3-17.7 G/DL Hematocrit 34 L 40-54 % Mean Corpuscular Volume 85 80-99 FL Mean Corpuscular Hemoglobin 28 25-34 PG Mean Corpuscular Hemoglobin Concent 32 32-36 G/DL Red Cell Distribution Width 14.8 H 10.0-14.5 % Platelet Count 363 130-400 10^3/uL Mean Platelet Volume 8.4 7.4-10.4 FL Neutrophils (%) (Auto) 70 42-75 % Lymphocytes (%) (Auto) 18 12-44 % Monocytes (%) (Auto) 10 0-12 % Eosinophils (%) (Auto) 2 0-10 % Basophils (%) (Auto) 0 0-10 % Neutrophils # (Auto) 5.4 1.8-7.8 X 10^3 Lymphocytes # (Auto) 1.4 1.0-4.0 X 10^3 Monocytes # (Auto) 0.7 0.0-1.0 X 10^3 Eosinophils # (Auto) 0.2 0.0-0.3 10^3/uL Basophils # (Auto) 0.0 0.0-0.1 10^3/uL Prothrombin Time 13.6 12.2-14.7 SEC INR Comment 1.0 0.8-1.4 Activated Partial Thromboplast Time 34 24-35 SEC Sodium Level 137 135-145 MMOL/L Potassium Level 4.2 3.6-5.0 MMOL/L Chloride Level 106 98-107 MMOL/L Carbon Dioxide Level 24 21-32 MMOL/L Anion Gap 7 5-14 MMOL/L Blood Urea Nitrogen 24 H 7-18 MG/DL Creatinine 1.16 0.60-1.30 MG/DL Estimat Glomerular Filtration Rate > 60 BUN/Creatinine Ratio 21 Glucose Level 93 70-105 MG/DL Calcium Level 8.8 8.5-10.1 MG/DL Corrected Calcium 9.3 8.5-10.1 MG/DL Magnesium Level 2.0 1.8-2.4 MG/DL Total Bilirubin 0.5 0.1-1.0 MG/DL Aspartate Amino Transf (AST/SGOT) 11 5-34 U/L Alanine Aminotransferase (ALT/SGPT) 8 0-55 U/L Alkaline Phosphatase 88 40-136 U/L Myoglobin 104.3 H 10.0-92.0 NG/ML Troponin I < 0.028 <0.028 NG/ML Total Protein 6.1 L 6.4-8.2 GM/DL Albumin 3.4 3.2-4.5 GM/DL Lipase 45 8-78 U/L Urine Color YELLOW Urine Clarity CLEAR Urine pH 8 5-9 Urine Specific [place] 1.015 L 1.016-1.022 Urine Protein NEGATIVE NEGATIVE Urine Glucose (UA) NEGATIVE NEGATIVE Urine Ketones NEGATIVE NEGATIVE Urine Nitrite NEGATIVE NEGATIVE Urine Bilirubin NEGATIVE NEGATIVE Urine Urobilinogen NORMAL NORMAL MG/DL Urine Leukocyte Esterase NEGATIVE NEGATIVE Urine RBC (Auto) NEGATIVE NEGATIVE Urine RBC NONE /HPF Urine WBC NONE /HPF Urine Squamous Epithelial Cells NONE /HPF Urine Crystals NONE /LPF Urine Bacteria NEGATIVE /HPF Urine Casts NONE /LPF Urine Mucus NEGATIVE /LPF Urine Culture Indicated NO My Orders Orders - AIDEE JUNIRO MD Cbc With Automated Diff (05/05/19 08:33) Magnesium (05/05/19 08:33) Ekg Tracing (05/05/19 08:33) Cardiac Profile 1 (05/05/19 08:33) Comprehensive Metabolic Panel (05/05/19 08:33) Myoglobin Serum (05/05/19 08:33) Protime With Inr (05/05/19 08:33) Partial Thromboplastin Time (05/05/19 08:33) O2 (05/05/19 08:33) Monitor-Rhythm Ecg Trace Only (05/05/19 08:33) Ed Iv/Invasive Line Start (05/05/19 08:33) Chest Pa/Lat (2 View) (05/05/19 08:33) Lipase (05/05/19 08:41) Fentanyl Injection (Sublimaze Injection (05/05/19 08:45) Famotidine Injection (Pepcid Injection) (05/05/19 08:45) Ct Abdomen/Pelvis W (05/05/19 09:04) Iohexol Injection (Omnipaque 350 Mg/Ml 1 (05/05/19 09:30) Received Contrast (Hold Metformin- Contr (05/05/19 09:30) Ns (Ivpb) (Sodium Chloride 0.9% Ivpb Bag (05/05/19 09:30) Ua Culture If Indicated (05/05/19 09:23) Ondansetron Injection (Zofran Injectio (05/05/19 10:45) Lidocaine 2% Viscous 15 Ml (Xylocaine Vi (05/05/19 10:45) Antacid Suspension (Mylanta Suspension (05/05/19 10:45) Fentanyl Injection (Sublimaze Injection (05/05/19 12:00) Medications Given in ED Vital Signs/I&O 05/05/19 05/05/19 07:56 12:30 Temp 98.0 Pulse 70 76 Resp 16 16 B/P (MAP) 142/84 (103) 114/80 (91) Pulse Ox 96 98 O2 Delivery Room Air Room Air Blood Pressure Mean: 103 Progress Progress Note #1: Time: 10:42 Progress Note Workup has been unremarkable thus far. CT showed only chronic abdominal aortic aneurysm and pulmonary nodules. No acute pathology to explain patient's pain. Fentanyl was given for pain initially but he is still having upper abdominal pain. We will try GI cocktail. Patient is now shivering but to measurements of temperature both temp orally and orally show no fever. He does not feel febrile to the touch. Progress Note #2: Progress Note GI cocktail did improve his pain. Initial ECG Impression Date: May 05, 2019 Initial ECG Impression Time: 07:55 Initial ECG Rate: 66 Initial ECG Rhythm: Normal Sinus Initial ECG Intervals: Normal Initial ECG Impression: Normal Comment Normal sinus rhythm with no ST elevation or depression. No abnormal intervals or axis deviation. Diagnostic Imaging Diagonstic Imaging: CT Plain Films/CT/US/NM/MRI: abdomen, pelvis Comments CT abdomen and pelvis viewed by me and report reviewed. See report below: NAME: [facility] REC#: [id number] PT STATUS: REG ER : 1955 PHYSICIAN: AIDEE JUNIOR MD ADMIT DATE: 05/05/19/ER Draft Date of Exam:05/05/19 CT ABDOMEN/PELVIS W PROCEDURE: CT abdomen and pelvis with contrast. TECHNIQUE: Multiple contiguous axial images were obtained through the abdomen and pelvis after administration of intravenous contrast. Auto Exposure Controls were utilized during the CT exam to meet ALARA standards for radiation dose reduction. INDICATION: Stomach pain. Ulcer. COMPARISON: CT abdomen and pelvis performed on 08/20/2017. FINDINGS: There is a new 7 mm subpleural nodule in the lateral basal segment of the right lower lobe (image 5 series 2). Emphysematous changes are noted in both lung bases. There is prominent interlobular and intralobular septal thickening in the right lower lobe, likely on the basis of fibrosis. The liver, gallbladder, spleen and pancreas are unremarkable. There is mild thickening of the left adrenal gland, without focal nodule, likely on the basis of hyperplasia. The right adrenal gland is normal. The kidneys are symmetric in size and demonstrate normal enhancement, without evidence of renal calculus, hydronephrosis, or suspicious mass. No ureteral abnormality is identified. The stomach and duodenum are normal. The small bowel and colon are normal in course and caliber, without evidence of wall thickening or obstruction. The appendix is normal. No pneumoperitoneum, abdominal free fluid, or loculated collection. No enlarged lymph nodes. There is mild aneurysmal dilatation of the infrarenal abdominal aorta, which measures up to 3.6 cm in greatest AP diameter, slightly increased from 2017 at which time it measured approximately 3.3 cm in diameter. Mild amount of intramural thrombus, similar in appearance to prior exam is demonstrated. There is marked atherosclerotic calcification of the abdominal aorta and iliac arteries. There are no findings to suggest venous thrombosis. The bladder is normal, within the limits of underdistention. The prostate gland is not enlarged. No pelvic free fluid is appreciated. The abdominal wall is unremarkable. Multilevel degenerative changes involving the spine. No acute osseous abnormality. IMPRESSION: 1. No acute abdominal or pelvic pathology. No findings to account for the patient's symptoms. 2. Infrarenal abdominal aortic aneurysm measuring up to 3.6 cm, slightly increased from the prior exam. 3. There is a new 7 mm subpleural nodule in the right lower lobe. Given emphysematous changes in the lung bases, a followup CT in 6-12 months is recommended to demonstrate stability, versus dedicated chest CT on a nonemergent basis to serve as a baseline. Dictated on workstation # [id number] Dict: 05/05/19 0953 Trans: 05/05/19 1021 KB [id number] Interpreted by: OUMAR MATSON DO Diagonstic Imaging: Xray Plain Films/CT/US/NM/MRI: chest Comments Chest x-ray viewed by me and report reviewed. See report below: NAME: [facility] REC#: [id number] PT STATUS: REG ER : 1955 PHYSICIAN: AIDEE JUNIOR MD ADMIT DATE: 05/05/19/ER Draft Date of Exam:05/05/19 CHEST PA/LAT (2 VIEW) EXAMINATION: PA and lateral chest at 9:02 AM INDICATION: Chest pressure The heart size is within normal limits and stable when compared to 09/14/2018. The chronic pulmonary changes noted on the prior study are again visualized. There is a vague area of increased density overlying the right lower lobe on the PA view. This may be secondary to superimposition of the breast tissue as opposed to pneumonia/atelectasis as there is no corresponding abnormality seen on the lateral view. Even so, clinical followup is recommended. The lungs are otherwise generally clear. There is no sign of pleural effusion. Mediastinum is not widened. The osseous structures are intact. IMPRESSION: 1. There is a question of mild pneumonia/atelectasis involving the right lung base. Clinical followup is recommended. 2. There are chronic pulmonary changes evident but there is no sign of an acute cardiopulmonary abnormality otherwise. Dictated on workstation # [id number] Dict: 05/05/19918 Trans: 05/05/19 0927 [facility] [id number] Interpreted by: AYE KINCAID MD Departure Impression Primary Impression: Epigastric pain Additional Impressions: Pulmonary nodules Abdominal aortic aneurysm Qualified Codes: I71.4 - Abdominal aortic aneurysm, without rupture Atypical chest pain Disposition: HOME, SELF-CARE Condition: Improved Departure-Patient Inst. Decision time for Depature: 11:55 Referrals: GERHARD SIU DO (PCP) Primary Care Physician JORGE JACKSON (Family) Primary Care Physician Patient Instructions: Abdominal Aortic Aneurysm, Acute Abdomen (Belly Pain), Multiple Pulmonary Nodules Add. Discharge Instructions: Take a double antiacid therapy as prescribed. Also restart Carafate (sucralfate). Avoid the following: Eating large meals, eating close to bedtime, caffeine, carbonation, tobacco, chocolate, citrus fruits and juices, alcohol, tomato products, spicy foods, mints, NSAID medications such as ibuprofen or naproxen, fatty or greasy foods, acidic foods, or anything else you know irritates your stomach. Follow-up with your primary care provider regarding your abdominal aortic aneurysm and your pulmonary nodules. These need to be followed up on in a routine fashion. Return to the ER if you're having worsening symptoms. I expect gradual improvement of your abdominal pain over the next few weeks. Work toward quitting smoking as soon as possible. Seek help from your primary c are provider if needed. All discharge instructions reviewed with patient and/or family. Voiced understanding. Copy Copies To 1: GERHARD SIU JOSHUA T MD May 05, 2019 10:32
--- NOTE | 2019-05-05 10:40 | NUR ---
PT SHAKING ET STATES HE FEELS COLD. TEMP 97.9. STATES THE PAIN IS STARTING TO COME BACK.
[2019-05-05] MEDS ORDERED: ONDANSETRON 4 MG/2 ML (SDV) Z0FRAN IVP ONE (10:45)
[2019-05-05] MEDS ORDERED: ANTACID SUSP 30 ML UDC (MYLANTA) PO ONE (10:45)
[2019-05-05] MEDS ORDERED: LIDOCAINE 2% VISCOUS 15 ML UDC PO ONE (10:45)
[2019-05-05] MEDS ORDERED: OMEP20CA12 PO (12:12)
[2019-05-05] MEDS ORDERED: FAMO-119 PO (12:12)
[2019-05-05] MEDS ORDERED: SUCR1TAB36 PO (12:12)
[2019-05-05] MEDS ORDERED: ONDA4TAB11 SL (12:12)
[2019-05-05 12:30] VITALS: BP 114/80
[2019-05-06] MEDS ORDERED: METO-333 PO (13:39)
[2019-05-06] MEDS ORDERED: OMEP20CA12 PO (13:59)
[2019-05-06] MEDS ORDERED: FAMO-119 PO (13:59)
[2019-05-06] MEDS ORDERED: SUCR1TAB36 PO (13:59)
[2019-05-06] MEDS ORDERED: ONDA4TAB11 PO (13:59)
[2019-05-06] MEDS ORDERED: TOFA5TAB PO (14:23)
[2019-05-09] MEDS ORDERED: AZIT250T12 PO (12:17)
== END 2019-05-05 12:30 | disposition home or self-care (01) ==
LOC: EDUNIT# 07:51 → ER 07:53
DX: I71.4 Abdominal aortic aneurysm, without rupture (principal); R91.1 Solitary pulmonary nodule; R07.89 Other chest pain; J44.9 Chronic obstructive pulmonary disease, unspecified; I10 Essential (primary) hypertension; E78.00 Pure hypercholesterolemia, unspecified; I25.2 Old myocardial infarction; I25.10 Atherosclerotic heart disease of native coronary artery without angina pectoris; I48.91 Unspecified atrial fibrillation; K21.9 Gastro-esophageal reflux disease without esophagitis; M06.9 Rheumatoid arthritis, unspecified; F17.210 Nicotine dependence, cigarettes, uncomplicated; Z87.19 Personal history of other diseases of the digestive system; Z82.49 Family history of ischemic heart disease and other diseases of the circulatory system; Z95.5 Presence of coronary angioplasty implant and graft
CPT/HCPCS: 36415; 71046; 74177; 80053; 81000; 83690; 83735; 83874; 84484; 85025; 85610; 85730; 93005; 93041; 96374; 96375; 96376

== ENCOUNTER 2019-05-06 09:04 | Inpatient (IN) | payer OTHER ==
[~2019-05-06] VITALS: Ht 185.4 cm; Wt 72.7 kg
[2019-05-06] VITALS (12 sets, daily range): BP systolic 103–125; BP diastolic 45–75
[~2019-05-06 09:04] MED LIST changes: +FAMO-119 PO; +OMEP20CA12 PO; +ONDA4TAB11 SL
[2019-05-06] MEDS ORDERED: ADENOSINE 6 MG/2 ML (ADENOCARD) VIAL IV ONE ×4 (09:07→09:45)
[2019-05-06] MEDS ORDERED: NS IV 1000 ML 1,000 ML ONE ×2 (09:08→09:14)
[2019-05-06] MEDS ORDERED: DILTIAZEM 25 MG/5 ML INJ (CARDIZEM) VIAL ONE (09:08)
[2019-05-06] MEDS ORDERED: DILTIAZEM IV FOR DRIP 125 MG in NS (IVPB) 100 ML IV ONE (09:15)
--- NOTE | 2019-05-06 09:17 | NUR ---
Pt's 3000 ml NS bolus started at this time.
[2019-05-06] MEDS ORDERED: MIDAZOLAM 5 MG/5 ML (VERSED) VIAL ONE (09:25)
[2019-05-06] MEDS ORDERED: NS IV 1000 ML 2,000 ML ONE (09:31)
[2019-05-06] MEDS ORDERED: NS IV 1000 ML 1,000 ML IV SCH ×2 (09:38→09:48)
[2019-05-06] MEDS ORDERED: ADENOSINE 6 MG/2 ML (ADENOCARD) VIAL IV STA (09:38)
[2019-05-06] MEDS ORDERED: morphine INJ 10 MG/ML 1ML (SYR OR VIAL) IV STA (09:38)
[2019-05-06] MEDS ORDERED: DILTIAZEM 25 MG/5 ML INJ (CARDIZEM) VIAL IVP ONE (09:45)
[2019-05-06] MEDS ORDERED: ASPIRIN 81 MG CHEW (CHILDREN'S ASA) PO ONE (09:45)
[2019-05-06] MEDS ORDERED: DILTIAZEM IV FOR DRIP 125 MG in NS (IVPB) 100 ML IV SCH (09:45)
[2019-05-06 09:48] LABS: BASOPHILS # (AUTO) 0.1 10^3/uL (0.0-0.1); BASOPHILS % (AUTO) 1 % (0-10); EOSINOPHILS # (AUTO) 0.2 10^3/uL (0.0-0.3); EOSINOPHILS % (AUTO) 2 % (0-10); HEMATOCRIT 40 % (40-54); HEMOGLOBIN 12.9 G/DL (13.3-17.7); LYMPHOCYTES # (AUTO) 3.8 X 10^3 (1.0-4.0); LYMPHOCYTES % (AUTO) 40 % (12-44); MEAN CORPUSCULAR HEMOGLOBIN 27 PG (25-34); MEAN CORPUSCULAR HGB CONC 32 G/DL (32-36); MEAN CORPUSCULAR VOLUME 85 FL (80-99); MEAN PLATELET VOLUME 8.9 FL (7.4-10.4); MONOCYTES # (AUTO) 0.9 X 10^3 (0.0-1.0); MONOCYTES % (AUTO) 9 % (0-12); NEUTROPHILS # (AUTO) 4.7 X 10^3 (1.8-7.8); NEUTROPHILS % (AUTO) 49 % (42-75); PLATELET COUNT 481 10^3/uL (130-400); RED CELL DISTRIBUTION WIDTH 14.6 % (10.0-14.5); WHITE BLOOD COUNT 9.5 10^3/uL (4.3-11.0)
[2019-05-06 10:00] LABS: ALBUMIN 3.8 GM/DL (3.2-4.5); BILIRUBIN,TOTAL 0.8 MG/DL (0.1-1.0); CALCIUM 9.6 MG/DL (8.5-10.1); CREATININE SERUM 1.43 MG/DL (0.60-1.30); INR 1.1 (0.8-1.4); MAGNESIUM 2.2 MG/DL (1.8-2.4); POTASSIUM 3.8 MMOL/L (3.6-5.0); PROTHROMBIN TIME PATIENT 14.2 SEC (12.2-14.7); TOTAL PROTEIN 7.1 GM/DL (6.4-8.2)
--- NOTE | 2019-05-06 10:04 | Diagnostic Imaging Report ---
EXAMINATION: Chest 1 view INDICATION: Atrial fibrillation. COMPARISON: 05/05/2019. FINDINGS: Defibrillator pads project over the left chest. There is vascular congestion and enlargement of the marylou in keeping with mild pulmonary edema. No pneumothorax. No pleural effusion. Heart size is normal. No pneumothorax. Previously seen airspace opacity in the right midlung has resolved and was likely atelectasis. IMPRESSION: 1. Mild pulmonary edema. Dictated by: Dictated on workstation # [id number]
--- NOTE | 2019-05-06 10:11 | ED Cardiac General ---
History of Present Illness General Chief Complaint: Cardiac/General Problems Stated Complaint: ABD PAIN Source: patient, old records Allergies and Home Medications Allergies Coded Allergies: No Known Drug Allergies (Unverified , 08/20/17) Home Medications Adalimumab 40 Mg/0.8 Ml Pen.ij.kit, 40 MG IM EVERY 2 WEEKS, (Reported) Apixaban 5 Mg Tablet, 5 MG PO BID, (Reported) Diltiazem HCl 240 Mg Cap.er.24h, 240 MG PO DAILY, (Reported) Famotidine 20 Mg Tablet, 20 MG PO BID Prescribed by: AIDEE DEVI on 05/05/19 1212 Hydroxychloroquine Sulfate 200 Mg Tablet, 200 MG PO BID, (Reported) Levofloxacin 750 Mg Tablet, 750 MG PO DAILY Prescribed by: CELESTINA DALEY on 09/15/18 1329 Mometasone Furoate 13 Gm Hfa.aer.ad, 1 PUFF INH BID PRN for SHORTNESS OF BREATH, (Reported) Omeprazole 20 Mg Capsule.dr, 20 MG PO BID Prescribed by: AIDEE DEVI on 05/05/19 1212 Ondansetron 4 Mg Tab.rapdis, 4 MG SL Q4H Prescribed by: AIDEE DEVI on 05/05/19 1212 Sucralfate 1 Gm Tablet, 1 GM PO QID 30 minutes before meals and before bed. May crush and mixed with 10 mL water to make slurry for better effect. Prescribed by: AIDEE DEVI on 08/19/18 1642 Sucralfate 1 Gm Tablet, 1 GM PO QID Crash or soak and dissolved in 5-10 mL water to create slurry. Take 30 minutes before meals and bed Prescribed by: AIDEE DEVI on 05/05/19 1212 Past Jpnpzhk-Bijjas-Aajwvb Hx Patient Social History Type Used: Cigarettes Former Smoker, Quit: Feb 02, 2018 2nd Hand Smoke Exposure: Yes Recent Foreign Travel: No Contact w/Someone Who Travel: No Recent Hopitalizations: No Immunizations Up To Date Tetanus Booster (TDap): Unknown Date of Pneumonia Vaccine: Sep 09, 2018 Date of Influenza Vaccine: Sep 09, 2018 Seasonal Allergies Seasonal Allergies: No Past Medical History Surgeries: Yes (CARDIAC CATH--STENTS X 3) Cardiac, Coronary Stent Respiratory: Yes Pneumonia, COPD Currently Using CPAP: No Currently Using BIPAP: No Cardiac: Yes (STENTS, cath,) Atrial Fibrillation, Coronary Artery Disease, Heart Attack, High Cholesterol, Hypertension Neurological: No Reproductive Disorders: No Sexually Transmitted Disease: No Genitourinary: No Gastrointestinal: Yes Gastroesophageal Reflux, Ulcer Musculoskeletal: Yes (SHOULDER, ELBOW, HAND PAIN, PAIN FROM [place] SPOTTED FEVER ) Arthritis, Rheumatoid Arthritis Endocrine: No HEENT: No Cancer: No Psychosocial: No Integumentary: No Blood Disorders: No Adverse Reaction/Blood Tranf: No Family Medical History Cardiovascular disease Cataracts Diabetes mellitus Glaucoma Hypertension Myocardial infarction Respiratory disorder Thyroid disease Visual disorder No Family History of: AIDS Abdominal aortic aneurysm Terry's disease Alcoholism Alzheimer's disease Aphasia Arthritis Asthma Cancer of mouth Colon cancer Completed stroke Congenital disease Congenital heart disease Coronary thrombosis Cystic fibrosis Deafness or hearing loss Dementia Drug abuse Dysphasia Fibrocystic disease of breast Gastroenteritis Headache disorder Hypercholesterolemia Infertility Kidney disease Neoplasm Not obtainable due to adoption Osteoporosis Parkinson's disease Prostate cancer Psychosocial problem Seizure disorder Severe allergy Tuberculosis Diabetes, Hypertension Physical Exam Vital Signs Vital Signs - First Documented 05/06/19 05/06/19 09:08 09:34 Temp 97.9 Pulse Ox 100 O2 Delivery Room Air O2 Flow Rate 2.00 Capillary Refill : Height, Weight, BMI Height: 6'1.00" Weight: 160lbs. 0.0oz. [id number]; 21.2 BMI Method:Stated Focused Exam Lactate Level 05/06/19 10:20: Lactic Acid Level 2.41*H Lactic Acid Level Laboratory Tests Test 05/06/19 10:20 Lactic Acid Level 2.41 MMOL/L (0.50-2.00) *H Progress/Results/Core Measures Results/Orders Lab Results Laboratory Tests Test 05/06/19 09:14 05/06/19 10:20 Range/Units White Blood Count 9.5 4.3-11.0 10^3/uL Red Blood Count 4.71 4.35-5.85 10^6/uL Hemoglobin 12.9 L 13.3-17.7 G/DL Hematocrit 40 40-54 % Mean Corpuscular Volume 85 80-99 FL Mean Corpuscular Hemoglobin 27 25-34 PG Mean Corpuscular Hemoglobin Concent 32 32-36 G/DL Red Cell Distribution Width 14.6 H 10.0-14.5 % Platelet Count 481 H 130-400 10^3/uL Mean Platelet Volume 8.9 7.4-10.4 FL Neutrophils (%) (Auto) 49 42-75 % Lymphocytes (%) (Auto) 40 12-44 % Monocytes (%) (Auto) 9 0-12 % Eosinophils (%) (Auto) 2 0-10 % Basophils (%) (Auto) 1 0-10 % Neutrophils # (Auto) 4.7 1.8-7.8 X 10^3 Lymphocytes # (Auto) 3.8 1.0-4.0 X 10^3 Monocytes # (Auto) 0.9 0.0-1.0 X 10^3 Eosinophils # (Auto) 0.2 0.0-0.3 10^3/uL Basophils # (Auto) 0.1 0.0-0.1 10^3/uL Prothrombin Time 14.2 12.2-14.7 SEC INR Comment 1.1 0.8-1.4 Activated Partial Thromboplast Time 32 24-35 SEC Sodium Level 136 135-145 MMOL/L Potassium Level 3.8 3.6-5.0 MMOL/L Chloride Level 100 98-107 MMOL/L Carbon Dioxide Level 17 L 21-32 MMOL/L Anion Gap 19 H 5-14 MMOL/L Blood Urea Nitrogen 25 H 7-18 MG/DL Creatinine 1.43 H 0.60-1.30 MG/DL Estimat Glomerular Filtration Rate 50 BUN/Creatinine Ratio 17 Glucose Level 86 70-105 MG/DL Calcium Level 9.6 8.5-10.1 MG/DL Corrected Calcium 9.8 8.5-10.1 MG/DL Magnesium Level 2.2 1.8-2.4 MG/DL Total Bilirubin 0.8 0.1-1.0 MG/DL Aspartate Amino Transf (AST/SGOT) 11 5-34 U/L Alanine Aminotransferase (ALT/SGPT) 10 0-55 U/L Alkaline Phosphatase 96 40-136 U/L Total Creatine Kinase 108 30-200 U/L Creatine Kinase MB 1.5 <6.6 NG/ML Myoglobin 157.1 H 10.0-92.0 NG/ML Troponin I 0.035 H <0.028 NG/ML B-Type Natriuretic Peptide 308.4 H <100.0 PG/ML Total Protein 7.1 6.4-8.2 GM/DL Albumin 3.8 3.2-4.5 GM/DL Amylase Level 41 25-125 U/L Lipase 36 8-78 U/L TSH [place] Testing 2.58 0.35-4.94 UIU/ML Serum Alcohol < 10 <10 MG/DL Lactic Acid Level 2.41 *H 0.50-2.00 MMOL/L My Orders Orders - TAY CARRASQUILLO DO Adenosine Injection (Adenocard Injection (05/06/19 09:07) Diltiazem Injection (Cardizem Injection) (05/06/19 09:08) Ns Iv 1000 Ml (Sodium Chloride 0.9%) (05/06/19 09:08) Ns (Ivpb) (Sodium C... W/Diltiazem Iv Fo (05/06/19 09:15) Ns Iv 1000 Ml (Sodium Chloride 0.9%) (05/06/19 09:14) Adenosine Injection (Adenocard Injection (05/06/19 09:19) Midazolam Injection (Versed Injection) (05/06/19 09:25) Ns Iv 1000 Ml (Sodium Chloride 0.9%) (05/06/19 09:31) Ed Iv/Invasive Line Start (05/06/19 09:38) Ekg Tracing (05/06/19 09:38) O2 (05/06/19 09:38) Monitor-Rhythm Ecg Trace Only (05/06/19 09:38) BNP (05/06/19 09:38) Cbc With Automated Diff (05/06/19 09:38) Comprehensive Metabolic Panel (05/06/19 09:38) Creatine Kinase (05/06/19 09:38) Creatine Kinase Mb (05/06/19 09:38) Magnesium (05/06/19 09:38) Protime With Inr (05/06/19 09:38) Partial Thromboplastin Time (05/06/19 09:38) Thyroid Analyzer (05/06/19 09:38) Myoglobin Serum (05/06/19 09:38) Troponin I (05/06/19 09:38) Chest 1 View, Ap/Pa Only (05/06/19 09:38) Ed Iv/Invasive Line Start (05/06/19 09:38) Ns Iv 1000 Ml (Sodium Chloride 0.9%) (05/06/19 09:38) Adenosine Injection (Adenocard Injection (05/06/19 09:38) Aspirin Chewable Tablet (Baby Aspirin Ch (05/06/19 09:45) Morphine Injection (Morphine Injection (05/06/19 09:38) Adenosine Injection (Adenocard Injection (05/06/19 09:45) Adenosine Injection (Adenocard Injection (05/06/19 09:45) Ns (Ivpb) (Sodium C... W/Diltiazem Iv Fo (05/06/19 09:45) Diltiazem Injection (Cardizem Injection) (05/06/19 09:45) Ekg Tracing (05/06/19 09:38) Ekg Tracing (05/06/19 09:38) Ekg Tracing (05/06/19 09:38) Ed Iv/Invasive Line Start (05/06/19 09:48) Ns Iv 1000 Ml (Sodium Chloride 0.9%) (05/06/19 09:48) Alcohol (05/06/19 10:03) Amylase (05/06/19 10:03) Drug Screen Stat (Urine) (05/06/19 10:03) Lactic Acid Analyzer (05/06/19 10:03) Lipase (05/06/19 10:03) Ua Culture If Indicated (05/06/19 10:03) Blood Culture (05/06/19 10:03) Digoxin Injection (Lanoxin Injection) (05/06/19 10:15) Apixaban Tablet (Eliquis Tablet) (05/06/19 10:15) Catheter(Urinary) Insert & Ass 03,15 (05/06/19 10:12) Ed Iv/Invasive Line Start (05/06/19 10:21) Ns Iv 1000 Ml (Sodium Chloride 0.9%) (05/06/19 10:21) Medications Given in ED Current Medications Medications Dose Ordered Sig/Keegan Route Start Time Stop Time Status Last Admin Dose Admin Adenosine 12 mg ONCE ONCE IV 05/06/19 09:45 05/06/19 09:46 DC 05/06/19 09:18 12 MG Adenosine 12 mg ONCE ONCE IV 05/06/19 09:45 05/06/19 09:46 DC 05/06/19 09:22 12 MG Aspirin 324 mg ONCE ONCE PO 05/06/19 09:45 05/06/19 09:46 DC 05/06/19 09:56 324 MG Diltiazem HCl 20 mg ONCE ONCE IVP 05/06/19 09:45 05/06/19 09:46 DC 05/06/19 09:32 20 MG Vital Signs/I&O 05/06/19 05/06/19 09:08 09:34 Temp 97.9 Pulse Ox 100 100 O2 Delivery Room Air Nasal Cannula O2 Flow Rate 2.00 2.00 Initial ECG Impression Date: May 06, 2019 Initial ECG Impression Time: 09:11 Initial ECG Rate: 196 Initial ECG Rhythm: SVT Initial ECG Impression: Nonspecific Changes Initial ECG Comparisson: Changed EKG : EKG Time: :20 Rate: 86 Rhythm: Normal Sinus (ECTOPIC BEATS) Comment EKG# 3 AT 0925--RATE 183, SVT EKG #4 AT 0936--RATE 68, NSR EKG #5 AT 1028--RATE 68, NSR Diagnostic Imaging Comments CXR--MILD EDEMA, PER RADIOLOGIST REPORT AT 1030 Reviewed: Reviewed by Me Critical Care Note Critical Care Total Time (minutes) 60 Departure Communication (Admissions) 0949--PAGING DR. ALVAREZ 0958--SPOKE WITH DR. ALVAREZ, WILL SEE PT IN CONSULT, RECOMMENDATIONS NOTED FOR DIGOXIN 1007--SPOKE WITH DR. YATES, HOSPITALIST COVERING FOR [facility], ACCEPTS PT FOR ADMIT Impression Primary Impression: Chest pain Additional Impression: Narrow complex tachycardia Disposition: ADMITTED INPATIENT Condition: Improved Admissions Decision to Admit Reason: Admit from ER (General) Decision to Admit/Date: May 06, 2019 Time/Decision to Admit Time: 10:00 Departure-Patient Inst. Referrals: GERHARD SIU DO (PCP) Primary Care Physician JORGE JACKSON (Family) Primary Care Physician TAY CARRASQUILLO DO May 06, 2019 10:11
[2019-05-06] MEDS ORDERED: DIGOXIN 0.25 MG/ML (LANOXIN) 2 ML AMP IV ONE (10:15)
[2019-05-06] MEDS ORDERED: APIXABAN 5 MG (ELIQUIS) TABLET PO ONE (10:15)
[2019-05-06 10:20] LABS: CREATINE KINASE MB 1.5 NG/ML (<6.6); TSH (THYROID ANALYZER) 2.58 UIU/ML (0.35-4.94)
[2019-05-06] MEDS ORDERED: NS IV 1000 ML 1,000 ML IV ONE (10:21)
[2019-05-06] MEDS ORDERED: NS (IVPB) 250 ML ONE (10:22)
[2019-05-06 10:37] LABS: BILIRUBIN,URINE NEGATIVE (NEGATIVE); CLARITY,URINE CLEAR; COLOR,URINE YELLOW; GLUCOSE, URINE (UA) NEGATIVE (NEGATIVE); KETONES,URINE 2+ (NEGATIVE); LEUKOCYTE ESTERASE ,URINE NEGATIVE (NEGATIVE); NITRITE,URINE NEGATIVE (NEGATIVE); PH,URINE 6 (5-9); PROTEIN,URINE 2+ (NEGATIVE); UROBILINOGEN,URINE NORMAL (NORMAL)
[2019-05-06 10:43] LABS: AMYLASE 41 U/L (25-125); LIPASE 36 U/L (8-78)
[2019-05-06 10:47] LABS: BACTERIA,URINE NEGATIVE /HPF; RBC,URINE 0-2 /HPF
[2019-05-06 10:52] LABS: AMPHETAMINE SCREEN, URINE NEGATIVE (NEGATIVE); BARBITURATE SCREEN URINE NEGATIVE (NEGATIVE); BENZODIAZEPINES SCREEN URINE NEGATIVE (NEGATIVE); CANNABINOID SCREEN, URINE POSITIVE (NEGATIVE); COCAINE SCREEN URINE NEGATIVE (NEGATIVE); METHADONE STAT NEGATIVE (NEGATIVE); METHAMPHETAMINE SCREEN URINE S NEGATIVE (NEGATIVE); OPIATE SCREEN URINE NEGATIVE (NEGATIVE); OXYCODONE STAT NEGATIVE (NEGATIVE); PROPOXYPHENE STAT NEGATIVE (NEGATIVE); TRICYCLIC ANTIDEPRESSANTS SCRE NEGATIVE (NEGATIVE)
--- NOTE | 2019-05-06 11:00 | NUR ---
Pastoral care visit.
--- NOTE | 2019-05-06 12:11 | History & Physical-Hospitalist ---
History of Present Illness HPI/Chief Complaint Chief complaint: Atrial fibrillation with rapid ventricular response History of present illness: This is a 63-year-old white male who has a past medical history of peptic ulcer disease who presented to the ER with midepigas tric abdominal pain yesterday complete an entire work-up including CT which was unrevealing who presented once again to the ER now with atrial fibrillation with rapid ventricular response with heart rate of 170. At this current time patient feels much better after Cardizem drip his heart rate is now 60 and he denies any shortness of breath or any nausea or vomiting. Source: patient Exam Limitations: no limitations Date Seen 05/06/19 Time Seen by a Provider: 12:00 Attending Physician Erin Gale DO PCP Crystal Culp DO Referring Physician Date of Admission May 06, 2019 at 10:24 Home Medications & Allergies Home Medications Reviewed patient Home Medication Reconciliation performed by pharmacy medication reconciliations manufacturing engineering technician and/or nursing. Patients Allergies have been reviewed. Allergies Allergies Coded Allergies No Known Drug Allergies (Batrzdbtdk69/19/17) Past Kktqsav-Exngdk-Hjreku Hx Past Med/Social Hx: Reviewed Nursing Past Med/Soc Hx, Reviewed and Corrections made Patient Social History Alcohol Use: Denies Use Recreational Drug Use: No Former Smoker, Quit: Feb 02, 2018 Type Used: Cigarettes 2nd Hand Smoke Exposure: Yes Recent Foreign Travel: No Contact w/other who traveled: No Recent Hopitalizations: No Recent Infectious Disease Expo: No Immunizations Up To Date Tetanus Booster (TDap): Unknown Date of Pneumonia Vaccine: Sep 09, 2018 Date of Influenza Vaccine: Sep 09, 2018 Seasonal Allergies Seasonal Allergies: No Past Medical History Surgeries: Cardiac, Coronary Stent Respiratory: Pneumonia Currently Using CPAP: No Currently Using BIPAP: No Cardiac: Atrial Fibrillation, Coronary Artery Disease, Heart Attack, High Cholesterol, Hypertension Reproductive: No Sexually Transmitted Disease: No Gastrointestinal: Gastroesophageal Reflux, Ulcer Musculoskeletal: Arthritis, Rheumatoid Arthritis History of Blood Disorders: No Adverse Reaction to Blood Vigil: No Family History Cardiovascular disease Cataracts Diabetes mellitus Glaucoma Hypertension Myocardial infarction Respiratory disorder Thyroid disease Visual disorder No Family History of: AIDS Abdominal aortic aneurysm Jefferson's disease Alcoholism Alzheimer's disease Aphasia Arthritis Asthma Cancer of mouth Colon cancer Completed stroke Congenital disease Congenital heart disease Coronary thrombosis Cystic fibrosis Deafness or hearing loss Dementia Drug abuse Dysphasia Fibrocystic disease of breast Gastroenteritis Headache disorder Hypercholesterolemia Infertility Kidney disease Neoplasm Not obtainable due to adoption Osteoporosis Parkinson's disease Prostate cancer Psychosocial problem Seizure disorder Severe allergy Tuberculosis Diabetes, Hypertension Review of Systems Constitutional: see HPI EENTM: no symptoms reported Respiratory: no symptoms reported Cardiovascular: chest pain Gastrointestinal: no symptoms reported Genitourinary: no symptoms reported Musculoskeletal: no symptoms reported Skin: no symptoms reported Psychiatric/Neurological: No Symptoms Reported All Other Systems Reviewed Negative Unless Noted: Yes Physical Exam Physical Exam Vital Signs Vital Signs - First Documented 05/06/19 05/06/19 09:04 09:08 Temp 97.9 Pulse 170 Resp 20 B/P (MAP) 88/60 (69) Pulse Ox 94 O2 Delivery Room Air O2 Flow Rate 2.00 Capillary Refill : Less Than 3 Seconds Height, Weight, BMI Height: 6'1.00" Weight: 160lbs. 0.0oz. [id number]; 21.2 BMI Method:Stated General Appearance: No Apparent Distress, WD/WN, Chronically ill Eyes: Right Eye Normal Inspection, Right Eye PERRL HEENT: PERRL/EOMI, Normal ENT Inspection, Pharynx Normal, Moist Mucous Membranes Neck: Full Range of Motion, Normal Inspection, Non Tender Respiratory: Chest Non Tender, Lungs Clear, Normal Breath Sounds, No Accessory Muscle Use, No Respiratory Distress Cardiovascular: Regular Rate, Rhythm, No Edema, No Gallop, No JVD, No Murmur, Normal Peripheral Pulses Gastrointestinal: Normal Bowel Sounds, No Organomegaly, No Pulsatile Mass, Non Tender, Soft Back: Normal Inspection, No CVA Tenderness, No Vertebral Tenderness Extremity: Normal Capillary Refill, Normal Inspection, Normal Range of Motion, Non Tender, No Calf Tenderness, No Pedal Edema Neurologic/Psychiatric: Alert, Oriented x3, No Motor/Sensory Deficits, Normal Mood/Affect Skin: Normal Color, Warm/Dry Lymphatic: No Adenopathy Results Results/Procedures Labs Laboratory Tests 05/06/19 09:14 Patient resulted labs reviewed. Assessment/Plan Admission Diagnosis Assessment: Atrial fibrillation with rapid ventricular response CAD History of peptic ulcer disease OAC CAD Plan: Home meds Oral anticoagulation Rate control Cardiology appreciated Admission Status: Inpatient Order (span 2 midnights) Reason for Inpatient Admission: AF w/RVR Diagnosis/Problems Diagnosis/Problems (1) Atrial fibrillation Status: Chronic Qualifiers: Atrial fibrillation type: paroxysmal Qualified Codes: I48.0 - Paroxysmal atrial fibrillation (2) Coronary artery disease Status: Chronic Qualifiers: Coronary Disease-Associated Artery/Lesion type: [place] artery [place] vs. transplanted heart: [place] heart Associated angina: without angina Qualified Codes: I25.10 - Atherosclerotic heart disease of [place] coronary artery without angina pectoris (3) Chest pain Status: Acute Qualifiers: Chest pain type: other chest pain Qualified Codes: R07.89 - Other chest pain (4) Hypertension Status: Chronic Qualifiers: Hypertension type: essential hypertension Qualified Codes: I10 - Essential (primary) hypertension (5) Hyperlipidemia Status: Chronic Qualifiers: Hyperlipidemia type: mixed hyperlipidemia Qualified Codes: E78.2 - Mixed hyperlipidemia (6) GERD (gastroesophageal reflux disease) Status: Chronic Qualifiers: Esophagitis presence: without esophagitis Qualified Codes: K21.9 - Gastro-esophageal reflux disease without esophagitis (7) Rheumatoid arthritis Status: Chronic Qualifiers: Rheumatoid arthritis location: unspecified site Rheumatoid factor presence: unspecified presence Qualified Codes: M06.9 - Rheumatoid arthritis, unspecified (8) COPD (chronic obstructive pulmonary disease) Status: Chronic Qualifiers: COPD type: unspecified COPD Qualified Codes: J44.9 - Chronic obstructive pulmonary disease, unspecified (9) Epigastric pain Status: Acute (10) Peptic ulcer disease Status: Chronic ERIN GALE DO May 06, 2019 12:10
[2019-05-06] MEDS ORDERED: DIGOXIN 0.25 MG/ML (LANOXIN) 2 ML AMP IV NR (12:21)
[2019-05-06] MEDS: NS IV 1000 ML 1,000 ML IV SCH ×3 (12:29→22:38)
[2019-05-06] MEDS ORDERED: morphine INJ 4 MG/ML 1 ML (VIAL/SYRINGE) IVP PRN (12:30)
[2019-05-06] MEDS ORDERED: METO-333 PO (13:39)
[2019-05-06] MEDS ORDERED: OMEP20CA12 PO (13:59)
[2019-05-06] MEDS ORDERED: ONDA4TAB11 PO (13:59)
[2019-05-06] MEDS ORDERED: SUCR1TAB36 PO (13:59)
[2019-05-06] MEDS ORDERED: FAMO-119 PO (13:59)
[2019-05-06] MEDS ORDERED: TOFA5TAB PO (14:23)
--- NOTE | 2019-05-06 14:23 | NUR ---
SPOKE WITH PATIENT ALSO WENT THROUGH THE EXTERNAL MED HISORY, AND CALLED [facility] TO COMPLETE MED REC. 05-05-2019 PICKED UP CARAFATE, ZOFRAN, PRILOSEC, AND PEPCID, BUT NONE OF THESE WERE SHOWING UP ON THE EXTERNAL MED HISTORY. GETS XAVIER A SAMPLE FROM DR. GONSALEZ IN [place] BUT PT DID NOT KNOW THE STRENGTH AND THE OFFICE WAS CLOSED.
--- NOTE | 2019-05-06 15:32 | Consultation-Cardiology ---
HPI-Cardiology Cardiology Consultation: Date of Consultation 05/06/19 Time Seen by a Provider: 15:10 Date of Admission 05-06-19 Attending Physician Erin Gale DO Admitting Physician Crystal Culp DO Consulting Physician Monique Hoffman MD Primary General Pediatrician: Dr. Molina HPI: Chief Complaint: A-fib with RVR Mr. Connor is a 63 year old male admitted to ICU 8 from the ED with a-fib with RVR. He reports he had a sudden onset of chest pressure which started while at work. He reports he was previously in the ED yesterday with the same c/o, but at that time he was sent home d/t suspicion it was r/t his PUD. He states today the discomfort was more middle of his chest. He states the discomfort would improve with sitting, but never completely go away. He reports he did feel SOB at the time. He states on his way to the hospital he began to feel nauseated and diaphoretic. He reports he was feeling lightheaded. He states that has resolved. He does report he has epigastric discomfort which is worse with palpation. He denies any c/o palpitations. He denies any syncope or near syncope. He reports he has had swelling of the joints in his feet, but states this is intermittently chronic and d/t his arthritis. Review of Systems-Cardiology Review of Systems Constitutional: No chills, No fever, No malaise Eyes: No vision change Ears/Nose/Throat: No epistaxis, No recent hearing loss Respiratory: As described under HPI Cardiovascular: As described under HPI Gastrointestinal: No constipation, No diarrhea; nausea; No vomiting Genitourinary: No dysuria, No hematuria Musculoskeletal: joint pain, joint swelling Skin: No rash on exposed areas, No ulcerations on exposed areas Psychiatric/Neurological: No anxiety, No depression, No seizure, No focal weakness, No syncope Hematologic: No bleeding abnormalities [id number] Hx Patient Social History Alcohol Use: Denies Use Recreational Drug Use: No Type Used: Cigarettes 2nd Hand Smoke Exposure: Yes Recent Foreign Travel: No Recent Infectious Disease Expo: No Hospitalization with Isolation: Denies Immunizations Up To Date Tetanus Booster (TDap): Unknown Date of Pneumonia Vaccine: Sep 09, 2018 Date of Influenza Vaccine: Sep 09, 2018 Past Medical History PMH As described under Assessment. Family Medical History Family Medical History: Reports h/o CAD in his father in his 70s but no fam h/o early CAD. An uncle of his , possibly of heart trouble, in his mid to late 30s Family History: Cardiovascular disease Cataracts Diabetes mellitus Glaucoma Hypertension Myocardial infarction Respiratory disorder Thyroid disease Visual disorder No Family History of: AIDS Abdominal aortic aneurysm Terry's disease Alcoholism Alzheimer's disease Aphasia Arthritis Asthma Cancer of mouth Colon cancer Completed stroke Congenital disease Congenital heart disease Coronary thrombosis Cystic fibrosis Deafness or hearing loss Dementia Drug abuse Dysphasia Fibrocystic disease of breast Gastroenteritis Headache disorder Hypercholesterolemia Infertility Kidney disease Neoplasm Not obtainable due to adoption Osteoporosis Parkinson's disease Prostate cancer Psychosocial problem Seizure disorder Severe allergy Tuberculosis Allergies and Home Medications Allergies Coded Allergies: No Known Drug Allergies (Unverified , 08/20/17) Home Medications Apixaban 5 Mg Tablet, 5 MG PO BID, (Reported) Aspirin 81 Mg Tab.chew, 81 MG PO DAILY Prescribed by: PATTI MOULTON on 05/09/19 0840 Atorvastatin Calcium 40 Mg Tablet, 40 MG PO DAILY Prescribed by: PATTI MOULTON on 05/09/19 0840 Azithromycin 250 Mg Tablet, 250 MG PO DAILY Prescribed by: JAMAL HEATH on 05/09/19 1217 Clopidogrel Bisulfate 75 Mg Tablet, 75 MG PO DAILY Prescribed by: PATTI MOULTON on 05/09/19 0840 Diltiazem HCl 360 Mg Cap.er.24h, 360 MG PO DAILY Prescribed by: PATTI MOULTON on 05/09/19 0840 Famotidine 20 Mg Tablet, 20 MG PO BID, (Reported) Hydroxychloroquine Sulfate 200 Mg Tablet, 200 MG PO BID, (Reported) Metoprolol Tartrate 25 Mg Tablet, 12.5 MG PO BID Prescribed by: PATTI MOULTON on 05/09/19 0840 Mometasone Furoate 13 Gm Hfa.aer.ad, 1 PUFF INH BID PRN for SHORTNESS OF BREATH, (Reported) Omeprazole 20 Mg Capsule.dr, 20 MG PO BID, (Reported) Ondansetron 4 Mg Tab.rapdis, 4 MG PO Q4H PRN for NAUSEA/VOMITING-1ST LINE, (Reported) Sucralfate 1 Gm Tablet, 1 GM PO QID, (Reported) TAKE 30 MINUTES BEFORE MEALS AND AT BEDTIME. MAY CRUSH AND MIX WITH 5-10 ML OF WATER TO MAKE SLURRY FOR BETTER EFFECT Patient Home Medication List Home Medication List Reviewed: Yes Physical Exam-Cardiology Physical Exam Vital Signs/I&O 05/10/19 00:00 Intake Total 600 ml Output Total 900 ml Balance -300 ml Capillary Refill : Less Than 3 Seconds Constitutional: AAO x 3, well-developed, well-nourished HEENT: PERRL, hearing is well preserved Neck: No carotid bruit; carotid pulses are 2 + bilaterally Respiratory: No accessory muscle use, No respiratory distress; chest expansion is symmetric, chest is bilaterally symmetric, lungs clear to auscultation, other (prolonged expiratory phase) Cardiovascular: regular rate-rhythm; No JVD; S1 and S2 Gastrointestinal: No tender; soft, round, audible bowel sounds Rectal: deferred Extremities: no lower extremity edema bilateral Neurologic/Psychiatric: grossly intact, power is 5/5 both on sides Skin: No rash on exposed areas, No ulcerations on exposed areas Data Review Labs Laboratory Tests 05/09/19 08:20: Urine Color YELLOW, Urine Clarity CLEAR, Urine pH 6.5, Urine Specific [place] 1.010L, Urine Protein NEGATIVE, Urine Glucose (UA) NEGATIVE, Urine Ketones NEGATIVE, Urine Nitrite NEGATIVE, Urine Bilirubin NEGATIVE, Urine Urobilinogen NORMAL, Urine Leukocyte Esterase NEGATIVE, Urine RBC (Auto) 1+H, Urine RBC 0-2, Urine WBC NONE, Urine Squamous Epithelial Cells RARE, Urine Crystals NONE, Urine Bacteria TRACE, Urine Casts NONE, Urine Mucus NEGATIVE, Urine Culture Indicated NO Microbiology 05/06/19 Blood Culture - Preliminary, Resulted Staph, Coag Neg ([employer]) See Comments 05/07/19 MRSA Screen - Final, Complete MRSA not isolated Radiology NAME: FE CON[facility] REC#: [id number] PT STATUS: ADM IN : 1955 PHYSICIAN: TAY CARRASQUILLO DO ADMIT DATE: 05/06/19/ICU Signed Date of Exam: 05/06/19 CHEST 1 VIEW, AP/PA ONLY EXAMINATION: Chest 1 view INDICATION: Atrial fibrillation. COMPARISON: 05/05/2019. FINDINGS: Defibrillator pads project over the left chest. There is vascular congestion and enlargement of the marylou in keeping with mild pulmonary edema. No pneumothorax. No pleural effusion. Heart size is normal. No pneumothorax. Previously seen airspace opacity in the right midlung has resolved and was likely atelectasis. IMPRESSION: 1. Mild pulmonary edema. Dictated by: Dictated on workstation # [id number] Dict: 05/06/19 0956 Trans: 05/06/19 105 Interpreted by: JANELLE BLANCO MD Electronically signed by: JANELLE BLANCO MD 05/06/19 1051 ECG Impression ECG Initial ECG Impression: Atrial Fibrillation w/RVR A/P-Cardiology Assessment/Admission Diagnosis A-fib with RVR - converted to SR with controlled rate Mildly elevated troponin likely d/t RVR Acute renal insufficiency likely d/t intravascular vol depletion Paroxysmal atrial fibrillation, first diagnosed in October 2017, maintained on Eliquis. History of paroxysmal SVT TSH WNL per lab of 05-06-19 Stress test was done in October [address] Molina - showing diaphragmatic attenuation with no ischemia or infarction with normal LV size and function. Echocardiogram per Dr. Molina Sep 2017 showed normal LV size and EF of 45-50%, normal left atrial size H/O [place] spotted fever, seen for evaluation with infectious disease, diagnosed with rheumatoid arthritis and started to see Dr Parish Vickers in [place] Coronary artery disease, non-ST elevation myocardial infarction, cardiac catheter done in August 30, 2015 revealed total occlusion of RCA, 3 stents placed using 2.5 x 38, 2.75 x 28, 3.0 x 20 mm Promus Premier stents. Patient continues complain of chest pain that night and another cardiac catheterization was carried out on August 31, 2015 showed 50% ostial left main, otherwise mild coronary artery disease with patent stents to the RCA. Peptic ulcer disease with history of gastritis and esophagitis in the past. Had been followed by Dr. Gagnon in the past. Hyperlipidemia - statin Tobaccoism - quit Positive for marijuana use on lab of 05-06-19 Hypertension Mild bilat carotid dz per u/s of Nov [address] Molina Discussion and Recomendations A-fib with RVR - currently converted to SR with controlled rate H/O PAF for which he has been maintained on Eliquis, Cardizem CD and BB Echocardiogram to eval structure Acute on chronic renal insufficiency likely d/t intravascular vol depletion - IVF Monitor lab closely Advise immediate and complete smoking cessation We would like to thank medical services for this consult Clinical Quality Measures DVT/VTE Risk/Contraindication: Risk Factor Score Per Nursin RFS Level Per Nursing on Admit: 3=High PATTI MOULTON May 06, 2019 15:32
[2019-05-06] MEDS ORDERED: DILTIAZEM 240 MG (CARDIZEM CD) CAP PO NR (16:00)
[2019-05-06 16:03] LABS: INR 1.3 (0.8-1.4); PROTHROMBIN TIME PATIENT 16.6 SEC (12.2-14.7)
[2019-05-06] MEDS ORDERED: MOMETASONE FUROATE INH PRN (16:15)
[2019-05-06] MEDS ORDERED: ONDANSETRON 4 MG (ZOFRAN) ORAL DISSOLVE TAB PO PRN (16:15)
[2019-05-06] MEDS ORDERED: DILTIAZEM 180 MG (CARDIZEM CD) CAP PO NR (16:30)
[2019-05-06] MEDS ORDERED: RT-FLUTICASONE 110 MCG (FLOVENT) PER PUFF INH PRN (16:30)
[2019-05-06 18:09] LABS: BILIRUBIN,URINE NEGATIVE (NEGATIVE); CLARITY,URINE CLEAR; COLOR,URINE YELLOW; GLUCOSE, URINE (UA) NEGATIVE (NEGATIVE); KETONES,URINE 2+ (NEGATIVE); LEUKOCYTE ESTERASE ,URINE NEGATIVE (NEGATIVE); NITRITE,URINE NEGATIVE (NEGATIVE); PH,URINE 6 (5-9); PROTEIN,URINE NEGATIVE (NEGATIVE); UROBILINOGEN,URINE NORMAL (NORMAL)
[2019-05-06 18:18] LABS: BACTERIA,URINE NEGATIVE /HPF; RBC,URINE RARE /HPF; SQUAMOUS EPITHELIAL CELL,UR RARE /HPF
[2019-05-06] MEDS: HYDROXYCHLOROQUINE 200 MG (PLAQUENIL) TAB PO SCH (18:19)
[2019-05-06] MEDS: SUCRALFATE 1 GM (CARAFATE) TAB PO SCH ×2 (18:19→21:32)
--- NOTE | 2019-05-06 19:09 | Consultation-Cardiology ---
HPI-Cardiology Cardiology Consultation: Date of Consultation 05/06/19 Time Seen by a Provider: 18:40 Date of Admission Attending Physician Erin Gale DO Admitting Physician Crystal Culp DO Consulting Physician SKYLER ALVAREZ MD, MA, FACP, FACC, [facility] HPI: Chief Complaint: Reason for consultation: A Fib/Fl with RVR HPI Mr. Begum is a 63 year old male admitted to ICU 8 from the ED with a-fib with RVR. He reports he had a sudden onset of chest pressure which started while at work. He reports he was previously in the ED yesterday with the same c/o, but at that time he was sent home d/t suspicion it was r/t his PUD. He states today the discomfort was more middle of his chest. He states the discomfort would improve with sitting, but never completely go away. He reports he did feel SOB at the time. He states on his way to the hospital he began to feel nauseated and diaphoretic. He reports he was feeling lightheaded. He states that has resolved. He does report he has epigastric discomfort which is worse with palpation. He denies any c/o palpitations. He denies any syncope or near syncope. He reports he has had swelling of the joints in his feet, but states this is intermittently chronic and d/t his arthritis. Review of Systems-Cardiology Review of Systems Constitutional: No chills, No fever, No malaise Eyes: No vision change Ears/Nose/Throat: No epistaxis, No recent hearing loss Respiratory: As described under HPI Cardiovascular: As described under HPI Gastrointestinal: No constipation, No diarrhea; nausea; No vomiting Genitourinary: No dysuria, No hematuria Musculoskeletal: joint pain, joint swelling Skin: No rash on exposed areas, No ulcerations on exposed areas Psychiatric/Neurological: No anxiety, No depression, No seizure, No focal weakness, No syncope Hematologic: No bleeding abnormalities All Other Systems Reviewed Negative Unless Noted: Yes [id number]-[id number] Hx Patient Social History Alcohol Use: Denies Use Recreational Drug Use: No Type Used: Cigarettes 2nd Hand Smoke Exposure: Yes Recent Foreign Travel: No Recent Infectious Disease Expo: No Hospitalization with Isolation: Denies Immunizations Up To Date Tetanus Booster (TDap): Unknown Date of Pneumonia Vaccine: Sep 09, 2018 Date of Influenza Vaccine: Sep 09, 2018 Past Medical History PMH As described under Assessment. Family Medical History Family Medical History: Reports h/o CAD in his father in his 70s but no fam h/o early CAD. An uncle of his , possibly of heart trouble, in his mid to late 30s Family History: Cardiovascular disease Cataracts Diabetes mellitus Glaucoma Hypertension Myocardial infarction Respiratory disorder Thyroid disease Visual disorder No Family History of: AIDS Abdominal aortic aneurysm Bradford's disease Alcoholism Alzheimer's disease Aphasia Arthritis Asthma Cancer of mouth Colon cancer Completed stroke Congenital disease Congenital heart disease Coronary thrombosis Cystic fibrosis Deafness or hearing loss Dementia Drug abuse Dysphasia Fibrocystic disease of breast Gastroenteritis Headache disorder Hypercholesterolemia Infertility Kidney disease Neoplasm Not obtainable due to adoption Osteoporosis Parkinson's disease Prostate cancer Psychosocial problem Seizure disorder Severe allergy Tuberculosis Allergies and Home Medications Allergies Coded Allergies: No Known Drug Allergies (Unverified , 08/20/17) Home Medications Apixaban 5 Mg Tablet, 5 MG PO BID, (Reported) Diltiazem HCl 240 Mg Cap.er.24h, 240 MG PO DAILY, (Reported) Famotidine 20 Mg Tablet, 20 MG PO BID, (Reported) Hydroxychloroquine Sulfate 200 Mg Tablet, 200 MG PO BID, (Reported) Metoprolol Tartrate 25 Mg Tablet, 25 MG PO BID, (Reported) Mometasone Furoate 13 Gm Hfa.aer.ad, 1 PUFF INH BID PRN for SHORTNESS OF BREATH, (Reported) Omeprazole 20 Mg Capsule.dr, 20 MG PO BID, (Reported) Ondansetron 4 Mg Tab.rapdis, 4 MG PO Q4H PRN for NAUSEA/VOMITING-1ST LINE, (Reported) Sucralfate 1 Gm Tablet, 1 GM PO QID, (Reported) TAKE 30 MINUTES BEFORE MEALS AND AT BEDTIME. MAY CRUSH AND MIX WITH 5-10 ML OF WATER TO MAKE SLURRY FOR BETTER EFFECT Tofacitinib Citrate 5 Mg Tablet, MG PO DAILY, (Reported) THIS IS A SAMPLE HE GETS FROM THE OFFICE AND THE STRENGTH IS UNKNOWN. Patient Home Medication List Home Medication List Reviewed: Yes Physical Exam-Cardiology Physical Exam Vital Signs/I&O 05/06/19 05/06/19 05/06/19 05/06/19 09:04 09:08 09:34 11:48 Temp 97.9 97.9 97.9 Pulse 170 64 Resp 20 20 B/P (MAP) 88/60 (69) 116/77 (90) Pulse Ox 94 100 100 94 O2 Delivery Room Air Room Air Nasal Cannula Room Air O2 Flow Rate 2.00 2.00 05/06/19 05/06/19 05/06/19 05/06/19 12:11 12:15 12:18 12:39 Temp 97.8 Pulse 53 57 Resp 23 B/P (MAP) 122/70 (87) Pulse Ox 96 95 O2 Delivery Room Air Room Air 05/06/19 05/06/19 05/06/19 05/06/19 13:00 14:00 15:00 15:59 Temp 97.5 Pulse 56 52 52 Resp 20 19 23 B/P (MAP) 117/75 (89) 111/71 (84) 120/73 (89) Pulse Ox 94 94 94 O2 Delivery Room Air Room Air Room Air 05/06/19 05/06/19 05/06/19 05/06/19 16:00 16:00 17:00 18:00 Pulse 48 49 51 Resp 20 22 25 B/P (MAP) 114/55 (74) 122/68 (86) 122/70 (87) Pulse Ox 95 96 94 93 O2 Delivery Room Air Room Air Room Air Room Air Capillary Refill : Less Than 3 Seconds Constitutional: AAO x 3, well-developed, well-nourished HEENT: PERRL, hearing is well preserved Neck: No carotid bruit; carotid pulses are 2 + bilaterally Respiratory: No accessory muscle use, No respiratory distress; chest expansion is symmetric, chest is bilaterally symmetric, lungs clear to auscultation, other (prolonged expiratory phase) Cardiovascular: regular rate-rhythm; No JVD; S1 and S2 Gastrointestinal: No tender; soft, round, audible bowel sounds Rectal: deferred Extremities: no lower extremity edema bilateral Neurologic/Psychiatric: grossly intact, power is 5/5 both on sides Skin: No rash on exposed areas, No ulcerations on exposed areas Data Review Labs Laboratory Tests 05/06/19 09:14: White Blood Count 9.5, Red Blood Count 4.71, Hemoglobin 12.9L, Hematocrit 40, Mean Corpuscular Volume 85, Mean Corpuscular Hemoglobin 27, Mean Corpuscular Hemoglobin Concent 32, Red Cell Distribution Width 14.6H, Platelet Count 481H, Mean Platelet Volume 8.9, Neutrophils (%) (Auto) 49, Lymphocytes (%) (Auto) 40, Monocytes (%) (Auto) 9, Eosinophils (%) (Auto) 2, Basophils (%) (Auto) 1, Neutrophils # (Auto) 4.7, Lymphocytes # (Auto) 3.8, Monocytes # (Auto) 0.9, Eosinophils # (Auto) 0.2, Basophils # (Auto) 0.1, Prothrombin Time 14.2, INR Comment 1.1, Activated Partial Thromboplast Time 32, Sodium Level 136, Potassium Level 3.8, Chloride Level 100, Carbon Dioxide Level 17L, Anion Gap 19H, Blood Urea Nitrogen 25H, Creatinine 1.43H, Estimat Glomerular Filtration Rate 50, BUN/Creatinine Ratio 17, Glucose Level 86, Calcium Level 9.6, Corrected Calcium 9.8, Magnesium Level 2.2, Total Bilirubin 0.8, Aspartate Amino Transf (AST/SGOT) 11, Alanine Aminotransferase (ALT/SGPT) 10, Alkaline Phosphatase 96, Total Creatine Kinase 108, Creatine Kinase MB 1.5, Myoglobin 157.1H, Troponin I 0.035H , B-Type Natriuretic Peptide 308.4H, Total Protein 7.1, Albumin 3.8, Amylase Level 41, Lipase 36, TSH Young Testing 2.58, Serum Alcohol < 10 05/06/19 10:20: Lactic Acid Level 2.41*H 05/06/19 10:30: Urine Color YELLOW, Urine Clarity CLEAR, Urine pH 6, Urine Specific [place] 1.015L, Urine Protein 2+H, Urine Glucose (UA) NEGATIVE, Urine Ketones 2+H, Urine Nitrite NEGATIVE, Urine Bilirubin NEGATIVE, Urine Urobilinogen NORMAL, Urine Leukocyte Esterase NEGATIVE, Urine RBC (Auto) 1+H, Urine RBC 0-2, Urine WBC NONE, Urine Squamous Epithelial Cells NONE, Urine Crystals NONE, Urine Bacteria NEGATIVE, Urine Casts PRESENT, Urine Hyaline Casts 5-10H, Urine Mucus NEGATIVE, Urine Culture Indicated NO, Urine Opiates Screen NEGATIVE, Urine Oxycodone Screen NEGATIVE, Urine Methadone Screen NEGATIVE, Urine Propoxyphene Screen NEGATIVE, Urine Barbiturates Screen NEGATIVE, Ur Tricyclic Antidepressants Screen NEGATIVE, Urine Phencyclidine Screen NEGATIVE, Urine Amphetamines Screen NEGATIVE, Urine Methamphetamines Screen NEGATIVE, Urine Benzodiazepines Screen NEGATIVE, Urine Cocaine Screen NEGATIVE, Urine Cannabinoids Screen POSITIVEH 05/06/19 12:34: Lactic Acid Level 1.39 05/06/19 15:32: Prothrombin Time 16.6H, INR Comment 1.3, Activated Partial Thromboplast Time 40H , Myoglobin 140.8H, Troponin I 0.361*H 05/06/19 17:50: Urine Color YELLOW, Urine Clarity CLEAR, Urine pH 6, Urine Specific [place] 1.015L, Urine Protein NEGATIVE, Urine Glucose (UA) NEGATIVE, Urine Ketones 2+H, Urine Nitrite NEGATIVE, Urine Bilirubin NEGATIVE, Urine Urobilinogen NORMAL, Urine Leukocyte Esterase NEGATIVE, Urine RBC (Auto) 2+H, Urine RBC RARE, Urine WBC NONE, Urine Squamous Epithelial Cells RARE, Urine Crystals NONE, Urine Bacteria NEGATIVE, Urine Casts NONE, Urine Mucus NEGATIVE, Urine Culture Indicated NO A/P-Cardiology Assessment/Admission Diagnosis A-fib/fl with RVR - now NSR Mildly elevated troponin, type 2 HI, likely d/t RVR Acute renal insufficiency likely d/t intravascular vol depletion Paroxysmal atrial fibrillation, first diagnosed in October 2017, maintained on Eliquis. History of paroxysmal SVT TSH WNL per lab of 05-06-19 Stress test was done in October [address] Molina - showing diaphragmatic attenuation with no ischemia or infarction with normal LV size and function. Echocardiogram per Dr. Molina Sep 2017 showed normal LV size and EF of 45-50%, normal left atrial size H/o [place] spotted fever, seen for evaluation with infectious disease, diagnosed with rheumatoid arthritis and started to see Dr Parish Vickers in [place] Coronary artery disease, non-ST elevation myocardial infarction, cardiac catheter done in August 30, 2015 revealed total occlusion of RCA, 3 stents placed using 2.5 x 38, 2.75 x 28, 3.0 x 20 mm Promus Premier stents. Patient continues complain of chest pain that night and another cardiac catheterization was carried out on August 31, 2015 showed 50% ostial left main, otherwise mild coronary artery disease with patent stents to the RCA. Peptic ulcer disease with history of gastritis and esophagitis in the past. Had been followed by Dr. Gagnon in the past. Hyperlipidemia treated with statins Tobaccoism - quit Positive for marijuana use on lab of 05-06-19 Hypertension Mild bilat carotid dz per u/s of Nov [address] Molina Discussion and Recomendations * Increase long-acting oral dilt * Continue stroke prophylaxis with Eliquis * Echocardiogram to eval structure * IVF for dehydration * Monitor lab closely * We advised immediate and complete smoking cessation * We would like to thank Medical services for this consult Clinical Quality Measures DVT/VTE Risk/Contraindication: Risk Factor Score Per Nursin RFS Level Per Nursing on Admit: 3=High SKYLER ALVAREZ MD FACP FAC [facility] May 06, 2019 19:09
[2019-05-06] MEDS ORDERED: NON-FORMULARY MEDICATION 1 EA EA (Hydroxychloroquine Sulfate 200 MG) PO SCH (21:00)
[2019-05-06] MEDS ORDERED: NON-FORMULARY MEDICATION 1 EA EA (Famotidine (Pepcid) 20 MG) PO SCH (21:00)
[2019-05-06] MEDS ORDERED: APIXABAN 5 MG (ELIQUIS) TABLET PO SCH (21:00)
[2019-05-06] MEDS ORDERED: OMEPRAZOLE 20 MG (PriLOSEC) CAP NON-FORMULARY PO SCH (21:00)
[2019-05-06] MEDS: FAMOTIDINE 20 MG (PEPCID) TABLET PO SCH (21:31)
[2019-05-06] MEDS: APIXABAN 5 MG (ELIQUIS) TABLET PO SCH (21:31)
[2019-05-06] MEDS: PANTOPRAZOLE 20 MG TABLET (PROTONIX) PO SCH (21:31)
[2019-05-07] VITALS (11 sets, daily range): BP systolic 86–121; BP diastolic 52–71
[2019-05-07 03:23] LABS: BASOPHILS % (AUTO) 0 % (0-10); EOSINOPHILS # (AUTO) 0.2 10^3/uL (0.0-0.3); EOSINOPHILS % (AUTO) 3 % (0-10); HEMATOCRIT 29 % (40-54); HEMOGLOBIN 9.4 G/DL (13.3-17.7); LYMPHOCYTES # (AUTO) 1.2 X 10^3 (1.0-4.0); LYMPHOCYTES % (AUTO) 20 % (12-44); MEAN CORPUSCULAR HEMOGLOBIN 28 PG (25-34); MEAN CORPUSCULAR HGB CONC 33 G/DL (32-36); MEAN CORPUSCULAR VOLUME 85 FL (80-99); MEAN PLATELET VOLUME 8.3 FL (7.4-10.4); MONOCYTES # (AUTO) 0.7 X 10^3 (0.0-1.0); MONOCYTES % (AUTO) 12 % (0-12); NEUTROPHILS # (AUTO) 3.6 X 10^3 (1.8-7.8); NEUTROPHILS % (AUTO) 64 % (42-75); PLATELET COUNT 327 10^3/uL (130-400); RED CELL DISTRIBUTION WIDTH 14.6 % (10.0-14.5); WHITE BLOOD COUNT 5.7 10^3/uL (4.3-11.0)
[2019-05-07 03:48] LABS: ALANINE AMINOTRANSFERASE 6 U/L (0-55); ALBUMIN 2.7 GM/DL (3.2-4.5); ALKALINE PHOSPHATASE 69 U/L (40-136); BILIRUBIN,TOTAL 0.2 MG/DL (0.1-1.0); BUN/CREATININE RATIO 22; CALCIUM 7.7 MG/DL (8.5-10.1); CARBON DIOXIDE 18 MMOL/L (21-32); CHLORIDE 111 MMOL/L (98-107); CHOLESTEROL 128 MG/DL (< 200); CREATININE SERUM 0.88 MG/DL (0.60-1.30); GFR ESTIMATED > 60; GLUCOSE 102 MG/DL (70-105); HDL CHOLESTEROL 22 MG/DL (40-60); MAGNESIUM 1.7 MG/DL (1.8-2.4); PHOSPHORUS 1.9 MG/DL (2.3-4.7); POTASSIUM 3.8 MMOL/L (3.6-5.0); SODIUM 137 MMOL/L (135-145); TOTAL PROTEIN 4.8 GM/DL (6.4-8.2); TRIGLYCERIDES 98 MG/DL (<150); VLDL CHOLESTEROL 20 MG/DL (5-40)
[2019-05-07] MEDS: NS IV 1000 ML 1,000 ML IV SCH (04:00)
[2019-05-07] MEDS ORDERED: KCL 20 MEQ TAB (K-DUR) PO SCH (06:00)
[2019-05-07] MEDS ORDERED: POTASSIUM CL 10MEQ/50ML IVPB 50 ML IV SCH (06:00)
[2019-05-07] MEDS ORDERED: MAGNESIUM 1 GM/100 ML IVPB 100 ML IV SCH (06:00)
--- NOTE | 2019-05-07 07:07 | Pulmonary Consultation ---
History of Present Illness History of Present Illness Date of Consultation 05/07/19 07:01 Date of Admission Allergies and Home Medications Allergies Coded Allergies: No Known Drug Allergies (Unverified , 08/20/17) Home Medications Apixaban 5 Mg Tablet, 5 MG PO BID, (Reported) Diltiazem HCl 240 Mg Cap.er.24h, 240 MG PO DAILY, (Reported) Famotidine 20 Mg Tablet, 20 MG PO BID, (Reported) Hydroxychloroquine Sulfate 200 Mg Tablet, 200 MG PO BID, (Reported) Metoprolol Tartrate 25 Mg Tablet, 25 MG PO BID, (Reported) Mometasone Furoate 13 Gm Hfa.aer.ad, 1 PUFF INH BID PRN for SHORTNESS OF BREATH, (Reported) Omeprazole 20 Mg Capsule.dr, 20 MG PO BID, (Reported) Ondansetron 4 Mg Tab.rapdis, 4 MG PO Q4H PRN for NAUSEA/VOMITING-1ST LINE, (Reported) Sucralfate 1 Gm Tablet, 1 GM PO QID, (Reported) TAKE 30 MINUTES BEFORE MEALS AND AT BEDTIME. MAY CRUSH AND MIX WITH 5-10 ML OF WATER TO MAKE SLURRY FOR BETTER EFFECT Tofacitinib Citrate 5 Mg Tablet, MG PO DAILY, (Reported) THIS IS A SAMPLE HE GETS FROM THE OFFICE AND THE STRENGTH IS UNKNOWN. Past Tnoifxh-Wmmybm-Onxpse Hx Past Med/Social Hx: Reviewed Nursing Past Med/Soc Hx, Reviewed and Corrections made Patient Social History Alcohol Use: Denies Use Recreational Drug Use: No Type Used: Cigarettes Former Smoker, Quit: Feb 02, 2018 2nd Hand Smoke Exposure: Yes Recent Foreign Travel: No Contact w/Someone Who Travel: No Recent Infectious Disease Expo: No Recent Hopitalizations: No Immunizations Up To Date Tetanus Booster (TDap): Unknown Date of Pneumonia Vaccine: Sep 09, 2018 Date of Influenza Vaccine: Sep 09, 2018 Seasonal Allergies Seasonal Allergies: No Past Medical History Surgeries: Yes (CARDIAC CATH--STENTS X 3) Cardiac, Coronary Stent Respiratory: Yes Pneumonia, COPD Currently Using CPAP: No Currently Using BIPAP: No Cardiac: Yes (STENTS, cath,) Atrial Fibrillation, Coronary Artery Disease, Heart Attack, High Cholesterol, Hypertension Neurological: No Reproductive Disorders: No Sexually Transmitted Disease: No Genitourinary: No Gastrointestinal: Yes Gastroesophageal Reflux, Ulcer Musculoskeletal: Yes (SHOULDER, ELBOW, HAND PAIN, PAIN FROM [place] SPOTTED FEVER ) Arthritis, Rheumatoid Arthritis Endocrine: No HEENT: No Cancer: No Psychosocial: No Integumentary: No Blood Disorders: No Adverse Reaction/Blood Tranf: No Family Medical History Cardiovascular disease Cataracts Diabetes mellitus Glaucoma Hypertension Myocardial infarction Respiratory disorder Thyroid disease Visual disorder No Family History of: AIDS Abdominal aortic aneurysm Terry's disease Alcoholism Alzheimer's disease Aphasia Arthritis Asthma Cancer of mouth Colon cancer Completed stroke Congenital disease Congenital heart disease Coronary thrombosis Cystic fibrosis Deafness or hearing loss Dementia Drug abuse Dysphasia Fibrocystic disease of breast Gastroenteritis Headache disorder Hypercholesterolemia Infertility Kidney disease Neoplasm Not obtainable due to adoption Osteoporosis Parkinson's disease Prostate cancer Psychosocial problem Seizure disorder Severe allergy Tuberculosis Diabetes, Hypertension Sepsis Event Evaluation Height, Weight, BMI Height: 6'1.00" Weight: 166lbs. 7.0oz. 75.256867yy; 22.0 BMI Method:Stated Exam Exam Vital Signs Date Time Temp Pulse Resp B/P (MAP) Pulse Ox O2 Delivery O2 Flow Rate FiO2 05/07/19 06:00 79 17 104/56 (72) 98 Nasal Cannula 2.00 05/07/19 05:00 60 18 117/61 (79) 95 Nasal Cannula 2.00 05/07/19 04:00 98.1 05/07/19 04:00 59 22 111/66 (81) 95 Nasal Cannula 2.00 05/07/19 04:00 96 Nasal Cannula 2.00 05/07/19 03:00 64 20 116/68 (84) 94 Nasal Cannula 2.00 05/07/19 02:00 65 21 115/60 (78) 94 Nasal Cannula 2.00 05/07/19 01:00 61 05/07/19 01:00 61 19 110/57 (74) 96 Nasal Cannula 2.00 05/07/19 00:00 96 Nasal Cannula 2.00 05/07/19 00:00 54 20 86/52 (63) 94 Nasal Cannula 2.00 05/07/19 00:00 97.9 05/06/19 23:00 61 22 107/50 (69) 96 Nasal Cannula 2.00 05/06/19 22:00 61 24 110/74 (86) 94 Nasal Cannula 2.00 05/06/19 22:00 97.3 05/06/19 21:00 61 30 117/63 (81) 89 Room Air 05/06/19 20:00 95 Room Air 05/06/19 20:00 56 23 103/45 (64) 93 Room Air 05/06/19 19:00 53 27 125/71 (89) 93 Room Air 05/06/19 19:00 53 05/06/19 18:00 51 25 122/70 (87) 93 Room Air 05/06/19 17:00 49 22 122/68 (86) 94 Room Air 05/06/19 16:00 48 20 114/55 (74) 96 Room Air 05/06/19 16:00 95 Room Air 05/06/19 15:59 97.5 05/06/19 15:00 52 23 120/73 (89) 94 Room Air 05/06/19 14:00 52 19 111/71 (84) 94 Room Air 05/06/19 13:00 56 20 117/75 (89) 94 Room Air 05/06/19 12:39 57 05/06/19 12:18 97.8 05/06/19 12:15 53 23 122/70 (87) 95 Room Air 05/06/19 12:11 96 Room Air 05/06/19 11:48 97.9 64 20 116/77 (90) 94 Room Air 05/06/19 09:34 97.9 100 Nasal Cannula 2.00 05/06/19 09:08 100 Room Air 2.00 05/06/19 09:04 97.9 170 20 88/60 (69) 94 Room Air I & O 05/07/19 07:00 Intake Total 2200 ml Output Total 1825 ml Balance 375 ml Height & Weight Height: 6'1.00" Weight: 166lbs. 7.0oz. 75.574156aa; 22.0 BMI Method:Stated General Appearance: No Apparent Distress, WD/WN, Chronically ill HEENT: PERRL/EOMI, Normal ENT Inspection, Pharynx Normal, Moist Mucous Membranes Neck: Full Range of Motion, Normal Inspection, Non Tender Respiratory: Chest Non Tender, Lungs Clear, Normal Breath Sounds, No Accessory Muscle Use, No Respiratory Distress Cardiovascular: Regular Rate, Rhythm, No Edema, No Gallop, No JVD, No Murmur, Normal Peripheral Pulses Capillary Refill: Less Than 3 Seconds Extremity: Normal Capillary Refill, Normal Inspection, Normal Range of Motion, Non Tender, No Calf Tenderness, No Pedal Edema Neurologic/Psychiatric: Alert, Oriented x3, No Motor/Sensory Deficits, Normal Mood/Affect Skin: Normal Color, Warm/Dry Lymphatic: No Adenopathy Results Lab Laboratory Tests 05/06/19 09:14 05/07/19 03:01 Assessment/Plan Assessment/Plan COPD -SVNs -Monitor Afib RVR- now converted to sinus -Po meds -Eliquis -Cardiology consulted NSTEMI - type 2 secondary to Afib RVR per cardiology -Stress test 10/18 - neg -Eccho 09/18 EF 45-50% Anemia -Check occult stool CAD Marijuanna use -Education Tobacco hx SHERIDAN SOLIS DO May 07, 2019 07:06
[2019-05-07] MEDS: HYDROXYCHLOROQUINE 200 MG (PLAQUENIL) TAB PO SCH ×2 (07:09→16:45)
[2019-05-07] MEDS ORDERED: SODIUM PHOSPHATE INJ 30 MM in NS (IVPB) 250 ML IV NR (07:15)
[2019-05-07] MEDS: PANTOPRAZOLE 20 MG TABLET (PROTONIX) PO SCH ×2 (07:19→20:52)
--- NOTE | 2019-05-07 07:54 | Diagnostic Imaging Report ---
INDICATION: Chest pain. COMPARISON: 05/06/2019. DISCUSSION: Single portable upright view of the chest was obtained. Stable normal heart size. Mild interstitial thickening appears chronic. No pleural fluid or pneumothorax. No new consolidation. No osseous abnormality. IMPRESSION: 1. No acute cardiopulmonary process. Dictated by: Dictated on workstation # [id number]
[2019-05-07] MEDS: APIXABAN 5 MG (ELIQUIS) TABLET PO SCH ×2 (08:27→20:52)
[2019-05-07] MEDS: FAMOTIDINE 20 MG (PEPCID) TABLET PO SCH ×2 (08:27→20:52)
[2019-05-07] MEDS: SUCRALFATE 1 GM (CARAFATE) TAB PO SCH ×4 (08:27→20:52)
[2019-05-07] MEDS: ASPIRIN E.C. 81 MG (ECOTRIN) TAB PO SCH (08:27)
[2019-05-07] MEDS: DILTIAZEM 180 MG (CARDIZEM CD) CAP PO SCH (08:27)
[2019-05-07] MEDS ORDERED: DILTIAZEM 240 MG (CARDIZEM CD) CAP PO SCH (09:00)
[2019-05-07] MEDS ORDERED: ASPIRIN E.C. 325 MG (ECOTRIN) TABLET PO SCH (09:00)
--- NOTE | 2019-05-07 10:11 | NUR ---
REPORT RECEIVED FROM [employer] T[employer]AS[employer]ER.
--- NOTE | 2019-05-07 10:20 | NUR ---
PT TRANSFERRED TO ROOM 433 VIA WC ACCOMPANIED BY THIS RN. PT PERSONAL BELONGINGS SENT WITH PT TO NEW ROOM. REPORT GIVEN TO YOAV BAEZ FOR CONTINUING CARE.
--- NOTE | 2019-05-07 10:20 | NUR ---
PATIENT TRANSFERRED TO ROOM 433 FROM ICU-8. 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 PATIENT HAS PERSONAL BELONGINGS WITH HIM. PATIENT IS STABLE ON ROOM AIR AND TELEMETRY.
--- NOTE | 2019-05-07 12:46 | Progress Note-Hospitalist ---
Subjective HPI/CC On Admission Date Seen by Provider: May 07, 2019 Time Seen by Provider: 10:45 Chief complaint: Atrial fibrillation with rapid ventricular response History of present illness: This is a 63-year-old white male who has a past medical history of peptic ulcer disease who presented to the ER with midepigastric abdominal pain yesterday complete an entire work-up including CT which was unrevealing who presented once again to the ER now with atrial fibrillation with rapid ventricular response with heart rate of 170. At this current time patient feels much better after Cardizem drip his heart rate is now 60 and he denies any shortness of breath or any nausea or vomiting. Subjective/Events-last exam Patient doing much better Is able to ambulate around Rate controlled atrial fibrillation seems to be working well Overall feels much better Transferred to fourth floor Telemetry maintain Cardiology consultation is appreciated Review of Systems Cardiovascular: Palpitations Focused Exam Lactate Level 05/06/19 10:20: Lactic Acid Level 2.41*H 05/06/19 12:34: Lactic Acid Level 1.39 Objective Exam Vital Signs Vital Signs Date Time Temp Pulse Resp B/P (MAP) Pulse Ox O2 Delivery O2 Flow Rate FiO2 05/07/19 16:33 98.6 56 18 112/66 (81) 93 Room Air 05/07/19 12:33 0.00 Capillary Refill : Less Than 3 Seconds General Appearance: No Apparent Distress, WD/WN, Chronically ill HEENT: PERRL/EOMI, Normal ENT Inspection, Pharynx Normal, Moist Mucous Membranes Neck: Full Range of Motion, Normal Inspection, Non Tender Respiratory: Chest Non Tender, Lungs Clear, Normal Breath Sounds, No Accessory Muscle Use, No Respiratory Distress Cardiovascular: Regular Rate, Rhythm, No Edema, No Gallop, No JVD, No Murmur, Normal Peripheral Pulses Gastrointestinal: Normal Bowel Sounds, No Organomegaly, No Pulsatile Mass, Non Tender, Soft Back: Normal Inspection, No CVA Tenderness, No Vertebral Tenderness Extremity: Normal Capillary Refill, Normal Inspection, Normal Range of Motion, Non Tender, No Calf Tenderness, No Pedal Edema Neurologic/Psychiatric: Alert, Oriented x3, No Motor/Sensory Deficits, Normal Mood/Affect Skin: Normal Color, Warm/Dry Lymphatic: No Adenopathy Results/Procedures Lab Laboratory Tests 05/07/19 03:01 Patient resulted labs reviewed. Assessment/Plan Assessment and Plan Assess & Plan/Chief Complaint Assessment: Atrial fibrillation with rapid ventricular response now rate controlled but still requiring med changes moved to 4th floor CAD History of peptic ulcer disease OAC CAD Plan: Home meds Oral anticoagulation Rate control Cardiology appreciated Diagnosis/Problems Diagnosis/Problems (1) Atrial fibrillation Status: Chronic Qualifiers: Atrial fibrillation type: paroxysmal Qualified Codes: I48.0 - Paroxysmal atrial fibrillation (2) Coronary artery disease Status: Chronic Qualifiers: Coronary Disease-Associated Artery/Lesion type: [place] artery [place] vs. transplanted heart: [place] heart Associated angina: without angina Qualified Codes: I25.10 - Atherosclerotic heart disease of [place] coronary artery without angina pectoris (3) Chest pain Status: Acute Qualifiers: Chest pain type: other chest pain Qualified Codes: R07.89 - Other chest pain (4) Hypertension Status: Chronic Qualifiers: Hypertension type: essential hypertension Qualified Codes: I10 - Essential (primary) hypertension (5) Hyperlipidemia Status: Chronic Qualifiers: Hyperlipidemia type: mixed hyperlipidemia Qualified Codes: E78.2 - Mixed hyperlipidemia (6) GERD (gastroesophageal reflux disease) Status: Chronic Qualifiers: Esophagitis presence: without esophagitis Qualified Codes: K21.9 - Gastro- esophageal reflux disease without esophagitis (7) Rheumatoid arthritis Status: Chronic Qualifiers: Rheumatoid arthritis location: unspecified site Rheumatoid factor presence: unspecified presence Qualified Codes: M06.9 - Rheumatoid arthritis, unspecified (8) COPD (chronic obstructive pulmonary disease) Status: Chronic Qualifiers: COPD type: unspecified COPD Qualified Codes: J44.9 - Chronic obstructive pulmonary disease, unspecified (9) Epigastric pain Status: Acute (10) Peptic ulcer disease Status: Chronic Clinical Quality Measures DVT/VTE Risk/Contraindication: Risk Factor Score Per Nursin RFS Level Per Nursing on Admit: 3=High STEVEN YATES DO May 07, 2019 12:46
[2019-05-07] MEDS ORDERED: MAGNESIUM 1 GM/100 ML IVPB 100 ML IV NR (15:15)
--- NOTE | 2019-05-07 16:06 | Progress Note-Cardiology ---
Cardiology SOAP Progress Note Subjective: He states chest discomfort experienced yesterday was reminiscent of previous [place]/angina No palp or syncope Chronic, slowly progressive, exertional shortness of breath Objective: I&O/Vital Signs 05/07/19 05/07/19 05/07/19 05/07/19 05:00 06:00 07:00 08:00 Temp 97.0 Pulse 60 79 74 68 Resp 18 17 18 B/P (MAP) 117/61 (79) 104/56 (72) 121/71 (88) Pulse Ox 95 98 96 O2 Delivery Nasal Cannula Nasal Cannula Room Air O2 Flow Rate 2.00 2.00 05/07/19 05/07/19 05/07/19 05/07/19 08:00 10:20 12:33 13:00 Temp 97.6 Pulse 55 59 Resp 19 B/P (MAP) 120/64 (82) Pulse Ox 96 94 O2 Delivery Room Air Room Air Room Air O2 Flow Rate 0.00 05/07/19 00:00 Intake Total 1200 ml Output Total 1325 ml Balance -125 ml Weight (Pounds): 169 Weight (Ounces): 7.0 Weight (Calculated Kilograms): 76.448749 Constitutional: AAO x 3, well-developed, well-nourished Respiratory: No accessory muscle use, No respiratory distress; chest expansion is symmetric, chest is bilaterally symmetric, lungs clear to auscultation, other (prolonged expiratory phase) Cardiovascular: regular rate-rhythm; No JVD; S1 and S2 Gastrointestional: No tender; soft, round, audible bowel sounds Extremities: no lower extremity edema bilateral Neurologic/Psychiatric: grossly intact, power is 5/5 both on sides Skin: No rash on exposed areas, No ulcerations on exposed areas Results/Procedures: Labs Laboratory Tests 05/06/19 17:50: Urine Color YELLOW, Urine Clarity CLEAR, Urine pH 6, Urine Specific [place] 1.015L, Urine Protein NEGATIVE, Urine Glucose (UA) NEGATIVE, Urine Ketones 2+H, Urine Nitrite NEGATIVE, Urine Bilirubin NEGATIVE, Urine Urobilinogen NORMAL, Urine Leukocyte Esterase NEGATIVE, Urine RBC (Auto) 2+H, Urine RBC RARE, Urine WBC NONE, Urine Squamous Epithelial Cells RARE, Urine Crystals NONE, Urine Bacteria NEGATIVE, Urine Casts NONE, Urine Mucus NEGATIVE, Urine Culture Indicated NO 05/06/19 21:01: Troponin I 0.204H 05/07/19 03:01: White Blood Count 5.7, Red Blood Count 3.40L, Hemoglobin 9.4#L, Hematocrit 29L, Mean Corpuscular Volume 85, Mean Corpuscular Hemoglobin 28, Mean Corpuscular Hemoglobin Concent 33, Red Cell Distribution Width 14.6H, Platelet Count 327, Mean Platelet Volume 8.3, Neutrophils (%) (Auto) 64, Lymphocytes (%) (Auto) 20, Monocytes (%) (Auto) 12, Eosinophils (%) (Auto) 3, Basophils (%) (Auto) 0, Neutrophils # (Auto) 3.6, Lymphocytes # (Auto) 1.2, Monocytes # (Auto) 0.7, Eosinophils # (Auto) 0.2, Basophils # (Auto) 0.0, Sodium Level 137, Potassium Level 3.8, Chloride Level 111#H, Carbon Dioxide Level 18L, Anion Gap 8, Blood Urea Nitrogen 19H, Creatinine 0.88, Estimat Glomerular Filtration Rate > 60, BUN/Creatinine Ratio 22, Glucose Level 102, Calcium Level 7.7L, Corrected Calcium 8.7, Phosphorus Level 1.9L, Magnesium Level 1.7L, Total Bilirubin 0.2, Aspartate Amino Transf (AST/SGOT) 11, Alanine Aminotransferase (ALT/SGPT) 6, Alkaline Phosphatase 69, Total Protein 4.8L, Albumin 2.7L, Triglycerides Level 98, Cholesterol Level 128, LDL Cholesterol Direct 98, VLDL Cholesterol 20, HDL Cholesterol 22L 05/07/19 12:18: Glucometer 93 Laboratory Tests 05/06/19 09:14 05/07/19 03:01 A/P: Assessment: A-fib/fl with RVR - now NSR Mildly elevated troponin, NonSTEMI or type 2 [place] d/t RVR Acute renal insufficiency likely d/t intravascular vol depletion, improved with hydration Paroxysmal atrial fibrillation, first diagnosed in October 2017, stroke prophylaxis Eliquis. History of paroxysmal SVT TSH WNL per lab of 05-06-19 Stress test was done in October [address] Molina - showing diaphragmatic attenuation with no ischemia or infarction with normal LV size and function. Echocardiogram per Dr. Molina Sep 2017 showed normal LV size and EF of 45-50%, normal left atrial size Coronary artery disease, non-ST elevation myocardial infarction, cardiac catheter done in August 30, 2015 revealed total occlusion of RCA, 3 stents placed using 2.5 x 38, 2.75 x 28, 3.0 x 20 mm Promus Premier stents. Peptic ulcer disease with history of gastritis and esophagitis in the past Hyperlipidemia treated with statins Tobaccoism - quit Positive for marijuana use on lab of 05-06-19 Hypertension Mild bilat carotid dz per u/s of Nov [address] Molina H/o [place] spotted fever and rheumatoid arthritis Plan: * We increased long-acting oral dilt * Continue stroke prophylaxis with Eliquis * We advised immediate and complete smoking cessation * Given h/o CAD, continuing risk factors, and mild troponin elevation, we recommend card cath and PCI (if needed) * I reviewed the rationale, procedure, risks, benefits, potential complications, and alternatives of cath/PCI with him. He understands and provides informed consent * Cath scheduled for tomorrow SKYLER ALVAREZ MD FACP FAC CCDS May 07, 2019 16:06
--- NOTE | 2019-05-07 20:40 | NUR ---
Medication clarification with Dr. Hoffman - instructed to give Eliquis 5 mg po at HS and hold 0900 dose in AM.
[2019-05-08] VITALS (15 sets, daily range): BP systolic 97–132; BP diastolic 57–107
[2019-05-08 05:48] LABS: BASOPHILS % (AUTO) 0 % (0-10); EOSINOPHILS # (AUTO) 0.2 10^3/uL (0.0-0.3); EOSINOPHILS % (AUTO) 2 % (0-10); HEMATOCRIT 31 % (40-54); HEMOGLOBIN 10.1 G/DL (13.3-17.7); LYMPHOCYTES # (AUTO) 1.5 X 10^3 (1.0-4.0); LYMPHOCYTES % (AUTO) 23 % (12-44); MEAN CORPUSCULAR HEMOGLOBIN 27 PG (25-34); MEAN CORPUSCULAR HGB CONC 33 G/DL (32-36); MEAN CORPUSCULAR VOLUME 84 FL (80-99); MEAN PLATELET VOLUME 8.5 FL (7.4-10.4); MONOCYTES # (AUTO) 0.7 X 10^3 (0.0-1.0); MONOCYTES % (AUTO) 10 % (0-12); NEUTROPHILS # (AUTO) 4.1 X 10^3 (1.8-7.8); NEUTROPHILS % (AUTO) 64 % (42-75); PLATELET COUNT 353 10^3/uL (130-400); RED CELL DISTRIBUTION WIDTH 14.3 % (10.0-14.5); WHITE BLOOD COUNT 6.4 10^3/uL (4.3-11.0)
[2019-05-08 06:04] LABS: BUN/CREATININE RATIO 11; CALCIUM 8.2 MG/DL (8.5-10.1); CARBON DIOXIDE 20 MMOL/L (21-32); CHLORIDE 108 MMOL/L (98-107); CREATININE SERUM 0.92 MG/DL (0.60-1.30); GFR ESTIMATED > 60; GLUCOSE 99 MG/DL (70-105); MAGNESIUM 1.9 MG/DL (1.8-2.4); PHOSPHORUS 2.9 MG/DL (2.3-4.7); POTASSIUM 3.6 MMOL/L (3.6-5.0); SODIUM 138 MMOL/L (135-145)
[2019-05-08] MEDS: HYDROXYCHLOROQUINE 200 MG (PLAQUENIL) TAB PO SCH ×2 (06:26→16:33)
[2019-05-08] MEDS: DILTIAZEM 180 MG (CARDIZEM CD) CAP PO SCH (06:26)
[2019-05-08] MEDS: PANTOPRAZOLE 20 MG TABLET (PROTONIX) PO SCH ×2 (06:32→22:15)
[2019-05-08] MEDS: SUCRALFATE 1 GM (CARAFATE) TAB PO SCH ×4 (06:32→22:15)
[2019-05-08] MEDS: APIXABAN 5 MG (ELIQUIS) TABLET PO SCH ×2 (06:32→22:15)
[2019-05-08] MEDS: ASPIRIN E.C. 81 MG (ECOTRIN) TAB PO SCH (06:32)
[2019-05-08] MEDS: FAMOTIDINE 20 MG (PEPCID) TABLET PO SCH ×2 (06:32→22:15)
--- NOTE | 2019-05-08 07:58 | Pulmonary Progress Note ---
Sepsis Event Evaluation Height, Weight, BMI Height: 6'1.00" Weight: 168lbs. 3.0oz. 76.942472ft; 22.0 BMI Method:Stated Focused Exam Lactate Level 05/06/19 10:20: Lactic Acid Level 2.41*H 05/06/19 12:34: Lactic Acid Level 1.39 Exam Exam Vital Signs Date Time Temp Pulse Resp B/P (MAP) Pulse Ox O2 Delivery O2 Flow Rate FiO2 05/08/19 07:00 61 05/08/19 04:00 99.6 62 20 121/67 (85) 97 Room Air 05/08/19 01:00 54 05/08/19 00:00 100.0 68 18 110/57 (74) 97 Room Air 05/07/19 19:55 99.0 66 18 118/66 (83) 96 Room Air 05/07/19 19:30 Room Air 05/07/19 19:00 60 05/07/19 16:33 98.6 56 18 112/66 (81) 93 Room Air 05/07/19 13:00 59 05/07/19 12:33 97.6 55 19 120/64 (82) 94 Room Air 0.00 05/07/19 10:20 Room Air 05/07/19 08:00 96 Room Air 05/07/19 08:00 97.0 68 18 121/71 (88) 96 Room Air I & O 05/08/19 07:00 Intake Total 1370 ml Output Total 600 ml Balance 770 ml Height & Weight Height: 6'1.00" Weight: 168lbs. 3.0oz. 76.517313ue; 22.0 BMI Method:Stated General Appearance: No Apparent Distress, WD/WN, Chronically ill HEENT: PERRL/EOMI, Normal ENT Inspection, Pharynx Normal, Moist Mucous Membranes Neck: Full Range of Motion, Normal Inspection, Non Tender Respiratory: Chest Non Tender, Lungs Clear, Normal Breath Sounds, No Accessory Muscle Use, No Respiratory Distress Cardiovascular: Regular Rate, Rhythm, No Edema, No Gallop, No JVD, No Murmur, Normal Peripheral Pulses Capillary Refill: Less Than 3 Seconds Extremity: Normal Capillary Refill, Normal Inspection, Normal Range of Motion, Non Tender, No Calf Tenderness, No Pedal Edema Neurologic/Psychiatric: Alert, Oriented x3, No Motor/Sensory Deficits, Normal Mood/Affect Skin: Normal Color, Warm/Dry Lymphatic: No Adenopathy Results Lab Laboratory Tests 05/06/19 09:14 05/07/19 03:01 05/08/19 05:25 Assessment/Plan Assessment/Plan COPD -SVNs -Monitor Afib RVR- now converted to sinus -Po meds -Eliquis -Cardiology consulted NSTEMI - type 2 secondary to Afib RVR per cardiology -Stress test 10/18 - neg -Echo 09/18 EF 45-50% Anemia -Check occult stool CAD Marijuanna use -Education Tobacco hx SHERIDAN SOLIS DO May 08, 2019 07:58
[2019-05-08] MEDS ORDERED: LIDOCAINE 1% INJ 20 ML 20 ML VIAL ONE (11:20)
[2019-05-08] MEDS ORDERED: MIDAZOLAM 5 MG/5 ML (VERSED) VIAL ONE (11:20)
[2019-05-08] MEDS ORDERED: fentaNYL INJECTION 100 MCG/2 ML AMP ONE (11:20)
[2019-05-08] MEDS ORDERED: HEParin (CATH LAB) 2,000 ML IV ONE (11:28)
[2019-05-08] MEDS ORDERED: NS IV 1000 ML 1,000 ML ONE (11:55)
--- NOTE | 2019-05-08 12:00 | NUR ---
PATIENT LEFT FLOOR FOR HEART CATH.
[2019-05-08] MEDS ORDERED: NITRO DRIP 25000 MCG/D5W 250 ML IV ONE (12:18)
[2019-05-08] MEDS ORDERED: HEParin 1000 UNIT/ML (10ML VIAL) FOR BOLUS ONE (12:18)
[2019-05-08] MEDS ORDERED: EPTIFIBATIDE BOLUS 20 ML IV ONE (12:22)
[2019-05-08] MEDS ORDERED: CLOPIDOGREL 300 MG (PLAVIX) TABLET PO ONE (13:12)
[2019-05-08] MEDS ORDERED: ASPIRIN 81 MG CHEW (CHILDREN'S ASA) ONE (13:12)
--- NOTE | 2019-05-08 13:35 | Progress Note-Hospitalist ---
Subjective HPI/CC On Admission Date Seen by Provider: May 08, 2019 Time Seen by Provider: 14:00 Chief complaint: Atrial fibrillation with rapid ventricular response History of present illness: This is a 63-year-old white male who has a past medical history of peptic ulcer disease who presented to the ER with midepigastric abdominal pain yesterday complete an entire work-up including CT which was unrevealing who presented once again to the ER now with atrial fibrillation with rapid ventricular response with heart rate of 170. At this current time patient feels much better after Cardizem drip his heart rate is now 60 and he denies any shortness of breath or any nausea or vomiting. Subjective/Events-last exam Patient had a cardiac catheterization with intervention and stent placements Plavix initiated Remains in ICU for stability monitoring Review of Systems General: Fatigue Focused Exam Lactate Level 05/06/19 10:20: Lactic Acid Level 2.41*H 05/06/19 12:34: Lactic Acid Level 1.39 Objective Exam Vital Signs Vital Signs Date Time Temp Pulse Resp B/P (MAP) Pulse Ox O2 Delivery O2 Flow Rate FiO2 05/08/19 17:00 63 21 122/69 (86) 95 Room Air 05/08/19 16:00 98.9 05/07/19 12:33 0.00 Capillary Refill : Less Than 3 Seconds General Appearance: No Apparent Distress, WD/WN, Chronically ill HEENT: PERRL/EOMI, Normal ENT Inspection, Pharynx Normal, Moist Mucous Membranes Neck: Full Range of Motion, Normal Inspection, Non Tender Respiratory: Chest Non Tender, Lungs Clear, Normal Breath Sounds, No Accessory Muscle Use, No Respiratory Distress Cardiovascular: Regular Rate, Rhythm, No Edema, No Gallop, No JVD, No Murmur, Normal Peripheral Pulses Gastrointestinal: Normal Bowel Sounds, No Organomegaly, No Pulsatile Mass, Non Tender, Soft Back: Normal Inspection, No CVA Tenderness, No Vertebral Tenderness Extremity: Normal Capillary Refill, Normal Inspection, Normal Range of Motion, Non Tender, No Calf Tenderness, No Pedal Edema Neurologic/Psychiatric: Alert, Oriented x3, No Motor/Sensory Deficits, Normal Mood/Affect Skin: Normal Color, Warm/Dry Lymphatic: No Adenopathy Results/Procedures Lab Laboratory Tests 05/08/19 05:25 Patient resulted labs reviewed. Assessment/Plan Assessment and Plan Assess & Plan/Chief Complaint Assessment: Atrial fibrillation with rapid ventricular response now rate controlled but still requiring med changes moved to 4th floor CAD History of peptic ulcer disease OAC CAD hx with new interventions to diagonal and LAD Plan: Home meds Oral anticoagulation Rate control Cardiology appreciated Plavix Diagnosis/Problems Diagnosis/Problems (1) Atrial fibrillation Status: Chronic Qualifiers: Atrial fibrillation type: paroxysmal Qualified Codes: I48.0 - Paroxysmal atrial fibrillation (2) Coronary artery disease Status: Chronic Qualifiers: Coronary Disease-Associated Artery/Lesion type: [place] artery [place] vs. transplanted heart: [place] heart Associated angina: without angina Qualified Codes: I25.10 - Atherosclerotic heart disease of [place] coronary artery without angina pectoris (3) Chest pain Status: Acute Qualifiers: Chest pain type: other chest pain Qualified Codes: R07.89 - Other chest pain (4) Hypertension Status: Chronic Qualifiers: Hypertension type: essential hypertension Qualified Codes: I10 - Essential (primary) hypertension (5) Hyperlipidemia Status: Chronic Qualifiers: Hyperlipidemia type: mixed hyperlipidemia Qualified Codes: E78.2 - Mixed hyperlipidemia (6) GERD (gastroesophageal reflux disease) Status: Chronic Qualifiers: Esophagitis presence: without esophagitis Qualified Codes: K21.9 - Gastro- esophageal reflux disease without esophagitis (7) Rheumatoid arthritis Status: Chronic Qualifiers: Rheumatoid arthritis location: unspecified site Rheumatoid factor presence: unspecified presence Qualified Codes: M06.9 - Rheumatoid arthritis, unspecified (8) COPD (chronic obstructive pulmonary disease) Status: Chronic Qualifiers: COPD type: unspecified COPD Qualified Codes: J44.9 - Chronic obstructive pulmonary disease, unspecified (9) Epigastric pain Status: Acute (10) Peptic ulcer disease Status: Chronic Clinical Quality Measures DVT/VTE Risk/Contraindication: Risk Factor Score Per Nursin RFS Level Per Nursing on Admit: 3=High STEVEN YATES DO May 08, 2019 13:35
--- NOTE | 2019-05-08 13:52 | Cardiac Procedure Note-CS/ASA ---
Pre-Procedure Note Pre-Op Procedure Note H&P Reviewed The H&P was reviewed, patient examined and no changes noted. Date H&P Reviewed: May 08, 2019 Time H&P Reviewed: 12:10 Conscious Sedation Pre-Proced Time 12:10 ASA Score 3 For ASA 3 and 4: Consider anesthesia and medical clearance. Also, for patients with a history of failed moderate sedation consider anesthesia. Airway Lungs Heart ASA score ASA 1: a normal healthy patient ASA 2: a patient with a mild systemic disease (mid diabetes, controlled hypertension, obesity ASA 3: a patient with a severe systemic disease that limits activity (angina, COPD, prior Myocardial infarction) ASA 4: a patient with an incapacitating disease that is a constant threat to life (CHF, renal failure) ASA 5: a moribund patient not expected to survive 24 hrs. (ruptured aneurysm) ASA 6: a declared brain- patient whose organs are being harvested. For emergent operations, add the letter E after the classification Mallampati Classification Grade 2 Sedation Plan Analgesia, Amnesia, Plan communicated to team members, Discussed options with patient/fam, Discussed risks with patient/fam The patient is an appropriate candidate to undergo the planned procedure, sedation, and anesthesia. The patient immediately re-assessed prior to indication. SKYLER ALVAREZ MD FACP FAC CCDS May 08, 2019 13:52
--- NOTE | 2019-05-08 13:58 | Progress Note-Cardiology ---
Cardiology SOAP Progress Note Subjective: No new symptoms Has chronic exertional shortness of breath No recurrence of palp or chest discomfort since admission Objective: I&O/Vital Signs 05/08/19 05/08/19 05/08/19 05/08/19 04:00 07:00 08:00 08:00 Temp 99.6 99.1 Pulse 62 61 58 Resp 20 18 B/P (MAP) 121/67 (85) 120/66 (84) Pulse Ox 97 97 O2 Delivery Room Air Room Air Room Air 05/08/19 12:00 Temp 98.6 Pulse 56 Resp 18 B/P (MAP) 129/78 (95) Pulse Ox 97 O2 Delivery Room Air 05/08/19 00:00 Intake Total 840 ml Balance 840 ml Weight (Pounds): 168 Weight (Ounces): 3.0 Weight (Calculated Kilograms): 76.578531 Constitutional: AAO x 3, well-developed, well-nourished Respiratory: No accessory muscle use, No respiratory distress; chest expansion is symmetric, chest is bilaterally symmetric, lungs clear to auscultation, other (prolonged expiratory phase) Cardiovascular: regular rate-rhythm; No JVD; S1 and S2 Gastrointestional: No tender; soft, round, audible bowel sounds Extremities: no lower extremity edema bilateral Neurologic/Psychiatric: grossly intact, power is 5/5 both on sides Skin: No rash on exposed areas, No ulcerations on exposed areas Results/Procedures: Labs Laboratory Tests 05/08/19 05:25: White Blood Count 6.4, Red Blood Count 3.68L, Hemoglobin 10.1L, Hematocrit 31L, Mean Corpuscular Volume 84, Mean Corpuscular Hemoglobin 27, Mean Corpuscular Hemoglobin Concent 33, Red Cell Distribution Width 14.3, Platelet Count 353, Mean Platelet Volume 8.5, Neutrophils (%) (Auto) 64, Lymphocytes (%) (Auto) 23, Monocytes (%) (Auto) 10, Eosinophils (%) (Auto) 2, Basophils (%) (Auto) 0, Neutrophils # (Auto) 4.1, Lymphocytes # (Auto) 1.5, Monocytes # (Auto) 0.7, Eosinophils # (Auto) 0.2, Basophils # (Auto) 0.0, Sodium Level 138, Potassium Level 3.6, Chloride Level 108H, Carbon Dioxide Level 20L, Anion Gap 10, Blood Urea Nitrogen 10, Creatinine 0.92, Estimat Glomerular Filtration Rate > 60, BUN/Creatinine Ratio 11, Glucose Level 99, Calcium Level 8.2L, Phosphorus Level 2.9, Magnesium Level 1.9 05/08/19 11:17: Stool Occult Blood Immunoassay NEGATIVE Microbiology 05/06/19 Blood Culture - Preliminary, 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 Card cath of 05/08/19: 90% ostial and prox D1 treated with Alp Xience 2.25x28 stent, and 70% mid LAD treated with PTCA. There are patent stents with up to 40% instent restenosis in the RCA (placed in 2014: 2.5 x 38, 2.75 x 28, 3.0 x 20 mm Promus Premier). LVEF 60. LVEDP 11 Acute renal insufficiency likely d/t intravascular vol depletion, improved with hydration Paroxysmal atrial fibrillation, first diagnosed in October 2017, stroke prophylaxis Eliquis. History of paroxysmal SVT TSH WNL per lab of 05-06-[address] Molina Sep 2017 showed normal LV size and EF of 45-50%, normal left atrial size Peptic ulcer disease with history of gastritis and esophagitis in the past Hyperlipidemia treated with statins Tobaccoism - quit Positive for marijuana use on lab of 05-06-19 Hypertension Mild bilat carotid dz per u/s of Nov [address] Molina H/o [place] spotted fever and rheumatoid arthritis Plan: * We reviewed and discussed with him and his fam the results of cath and interventions undertaken on 05/08/19 * We have added Plavix. We are continuing ASA and Eliquis. After a week, ASA can be stopped and Plavix and Eliquis continued. After a year, Plavix can be switched to ASA * We advised complete avoidance of tobacco and any drug use SKYLER LAVAREZ MD FACP FAC CCDS May 08, 2019 13:58
[2019-05-08] MEDS: NS IV 1000 ML 1,000 ML IV SCH (14:01)
--- NOTE | 2019-05-08 14:13 | NUR ---
REPORT GIVEN TO NESTOR MIDDLETON. PATIENT BELONGINGS TRANSPORTED TO ICU.
[2019-05-08] MEDS ORDERED: PATIENT MAY USE OWN MEDS, ALL PO SCH (14:15)
--- NOTE | 2019-05-08 16:26 | CARDIAC CATHETERIZATION ---
DATE OF SERVICE: CARDIAC CATHETERIZATION AND CORONARY INTERVENTION REPORT INDICATIONS: The patient is a 63-year-old man, who presented with supraventricular tachycardia and acute non-ST elevation myocardial infarction. He has multiple coronary artery disease risk factors and has a history of coronary artery disease and has had stenting of the right coronary artery in the past. Cardiac catheterization was carried out today after having obtained an informed consent. PROCEDURE IN DETAIL: He was brought to the cardiac catheterization laboratory in a fasting state. Right groin was prepared and draped in the usual sterile fashion. Lidocaine 1% was used for local anesthesia. Modified Seldinger technique was used to advance a 5-Belgian sheath in right femoral artery. Angiography of the right femoral artery was carried out through the sheath. A 5-Belgian JL4 catheter was used for left coronary angiography and 5-Belgian JR4 catheter for right coronary angiography. A 5-Belgian pigtail catheter was used for left heart catheterization and left ventricular angiography. Subsequently, percutaneous intervention was carried out in the left anterior descending artery and the first diagonal branch. Percutaneous intervention to the left anterior descending artery and to the first diagonal branch: We exchanged the sheath over a wire for a 7-Belgian sheath. We used a 7-Belgian JL4 guide catheter to engage the left coronary artery. We advanced a BMW wire across the lesion in the mid left anterior descending artery and the tip was placed in the distal vessel. We advanced a choice floppy wire across the lesion in the ostial and proximal first diagonal and the tip was placed in the distal vessel. We carried out balloon angioplasty in the diagonal with Emerge 2.0 x 20 mm balloon and in the left anterior descending artery with Emerge 2.5 x 20 mm balloon. The balloons were deployed in a kissing fashion. Subsequent angiography revealed improvement of ostial and proximal stenosis in the first diagonal from 90% to approximately 70%. The left anterior descending artery improved from 70% to approximately 50%. Subsequently, balloon angioplasty of the ostial and proximal first diagonal was repeated with Emerge 2.0 x 20 mm balloon. The stenosis remained at approximately 70%. We then advanced an Alpine Xience 2.5 x 28 mm stent to the ostial and proximal first diagonal. This was very carefully positioned such that the proximal edge of the stent is flushed with the ostium of the first diagonal and not protruding into the left anterior descending. As an additional precaution, we carried out balloon angioplasty within the mid left anterior descending artery while deploying the stent in the first diagonal. Subsequent angiography reveals no significant residual stenosis in the ostial and proximal first diagonal. The left anterior descending artery has 40% to 50% midvessel stenosis and there is a small area of plaque fissuring due to balloon angioplasty without any propagation as any dissection. HEMODYNAMICS: Left ventricular end-diastolic pressure following coronary angiography was 11 mmHg. There is no significant pressure gradient on pullback across the aortic valve. The ascending aortic pressure was 110/61 with a mean 81 mmHg. CORONARY ANGIOGRAPHY: Left main coronary artery does not exhibit significant obstructive disease. There is diffuse coronary calcification of all coronary vessels. Left anterior descending artery exhibited approximately 70% midvessel stenosis, which was reduced to less than 50% with balloon angioplasty that is described above. The first diagonal branch of the left anterior descending artery is a good-sized vessel and was exhibiting 90% ostial and proximal stenosis that was reduced to no significant residual following balloon angioplasty and deployment of Alpine Xience 2.25 x 28 mm stent at 11 atmospheres. The right coronary artery is known to have stents that were placed in 2015. The stents are patent with up to approximately 40% in-stent restenosis. CONCLUSIONS: 1. A 90% ostial and proximal stenosis of the first diagonal reduced to no significant residual following balloon angioplasty and stenting with Alpine Xience 2.25 x 28 mm stent. 2. A 70% midvessel stenosis of the left anterior descending artery reduced to less than 50% following balloon angioplasty. 3. Patent proximal and midvessel right coronary artery stents that are known to be Promus Premier 2.5 x 38, 2.75 x 28 and 3.0 x 20 mm. These exhibit up to approximately 40% stenoses. 4. Normal left ventricular end-diastolic pressure. 5. Normal global left ventricular systolic function with a calculated ejection fraction of approximately 60%. DISCUSSION AND RECOMMENDATIONS: Adding Plavix to the regimen. Aspirin is being continued. He is also chronically on apixaban for a history of paroxysmal atrial fibrillation. For now, we will be continuing all 3 agents and the plan would be to discontinue aspirin in a few days and continue Plavix and apixaban. Plavix can probably be discontinued in a year and aspirin resumed at that time. Apixaban will be continued indefinitely. He is being kept in the hospital after today's procedure and ensure continuing postoperative stability and ability to take medications including medication changes described above. Job ID: [id number] DocumentID: [id number] Dictated Date: 05/08/2019 13:29:27 Eeg Technician Date: 05/08/2019 16:25:48 Dictated By: SKYLER ALVAREZ MD, MA, FACP, FACC,
--- NOTE | 2019-05-08 22:03 | NUR ---
PT HAS A TEMPERATURE OF 102.5 AND HAS REPORTED PAIN AT A 10 OUT OF 10. DESCRIBES PAIN AN "ARTHRITIC" PAIN. THIS RN CALLED DR YATES AND RECEIVED NEW ORDERS FOR TYLENOL 650 MG Q 6 PRN AND HYDROCODONE 5-325 Q 6 PRN
[2019-05-08] MEDS ORDERED: HYDROcodone/APAP 5 MG/325 MG (LORTAB) TAB ONE (22:06)
[2019-05-08] MEDS ORDERED: ACETAMINOPHEN 325 MG TABLET ONE (22:06)
[2019-05-08] MEDS ORDERED: ACETAMINOPHEN 325 MG TABLET PO PRN (22:30)
[2019-05-08] MEDS ORDERED: HYDROcodone/APAP 5 MG/325 MG (LORTAB) TAB PO PRN (22:30)
[2019-05-09] VITALS: BP 107/66
[2019-05-09] MEDS: NS IV 1000 ML 1,000 ML IV SCH (02:51)
[2019-05-09 03:27] LABS: BASOPHILS % (AUTO) 0 % (0-10); EOSINOPHILS # (AUTO) 0.1 10^3/uL (0.0-0.3); EOSINOPHILS % (AUTO) 1 % (0-10); HEMATOCRIT 33 % (40-54); HEMOGLOBIN 10.9 G/DL (13.3-17.7); LYMPHOCYTES # (AUTO) 1.4 X 10^3 (1.0-4.0); LYMPHOCYTES % (AUTO) 19 % (12-44); MEAN CORPUSCULAR HEMOGLOBIN 28 PG (25-34); MEAN CORPUSCULAR HGB CONC 33 G/DL (32-36); MEAN CORPUSCULAR VOLUME 83 FL (80-99); MEAN PLATELET VOLUME 8.3 FL (7.4-10.4); MONOCYTES # (AUTO) 0.9 X 10^3 (0.0-1.0); MONOCYTES % (AUTO) 13 % (0-12); NEUTROPHILS # (AUTO) 4.7 X 10^3 (1.8-7.8); NEUTROPHILS % (AUTO) 67 % (42-75); PLATELET COUNT 367 10^3/uL (130-400); RED CELL DISTRIBUTION WIDTH 14.4 % (10.0-14.5)
[2019-05-09 03:43] LABS: BUN/CREATININE RATIO 11; CALCIUM 8.3 MG/DL (8.5-10.1); CARBON DIOXIDE 19 MMOL/L (21-32); CHLORIDE 106 MMOL/L (98-107); GFR ESTIMATED > 60; GLUCOSE 107 MG/DL (70-105); MAGNESIUM 1.8 MG/DL (1.8-2.4); PHOSPHORUS 3.7 MG/DL (2.3-4.7); POTASSIUM 3.7 MMOL/L (3.6-5.0); SODIUM 136 MMOL/L (135-145)
[2019-05-09 04:00] VITALS: BP 111/73
--- NOTE | 2019-05-09 05:52 | Pulmonary Progress Note ---
Sepsis Event Evaluation Height, Weight, BMI Height: 6'1.00" Weight: 168lbs. 3.0oz. 76.266520pg; 22.0 BMI Method:Stated Focused Exam Lactate Level 05/06/19 10:20: Lactic Acid Level 2.41*H 05/06/19 12:34: Lactic Acid Level 1.39 Exam Exam Vital Signs Date Time Temp Pulse Resp B/P (MAP) Pulse Ox O2 Delivery O2 Flow Rate FiO2 05/09/19 04:00 98.8 05/09/19 04:00 55 16 111/73 (86) 95 Room Air 05/09/19 01:00 61 05/09/19 00:00 62 17 107/66 (80) 92 Room Air 05/08/19 23:13 98.5 77 18 97/57 (70) 96 Room Air 05/08/19 20:00 89 20 122/107 (112) 91 Room Air 05/08/19 20:00 102.5 05/08/19 20:00 Room Air 05/08/19 19:30 100.0 05/08/19 19:00 73 05/08/19 17:00 63 21 122/69 (86) 95 Room Air 05/08/19 16:30 71 28 121/68 (85) 96 Room Air 05/08/19 16:00 70 25 112/70 (84) 95 Room Air 05/08/19 16:00 98.9 05/08/19 15:30 67 22 122/77 (92) 95 Room Air 05/08/19 15:00 61 22 113/73 (86) 95 Room Air 05/08/19 14:45 60 18 120/74 (89) 95 Room Air 05/08/19 14:30 60 9 116/65 (82) 96 Room Air 05/08/19 14:15 58 16 124/74 (91) 92 Room Air 05/08/19 14:00 60 18 132/78 (96) 94 Room Air 05/08/19 13:00 63 05/08/19 12:00 98.6 56 18 129/78 (95) 97 Room Air 05/08/19 08:00 99.1 58 18 120/66 (84) 97 Room Air 05/08/19 08:00 Room Air 05/08/19 07:00 61 I & O 05/09/19 07:00 Intake Total 325 ml Output Total 950 ml Balance -625 ml Height & Weight Height: 6'1.00" Weight: 168lbs. 3.0oz. 76.786011zr; 22.0 BMI Method:Stated General Appearance: No Apparent Distress, WD/WN, Chronically ill HEENT: PERRL/EOMI, Normal ENT Inspection, Pharynx Normal, Moist Mucous Membranes Neck: Full Range of Motion, Normal Inspection, Non Tender Respiratory: Chest Non Tender, Lungs Clear, Normal Breath Sounds, No Accessory Muscle Use, No Respiratory Distress Cardiovascular: Regular Rate, Rhythm, No Edema, No Gallop, No JVD, No Murmur, Normal Peripheral Pulses Capillary Refill: Less Than 3 Seconds Extremity: Normal Capillary Refill, Normal Inspection, Normal Range of Motion, Non Tender, No Calf Tenderness, No Pedal Edema Neurologic/Psychiatric: Alert, Oriented x3, No Motor/Sensory Deficits, Normal Mood/Affect Skin: Normal Color, Warm/Dry Lymphatic: No Adenopathy Results Lab Laboratory Tests 05/08/19 05:25 05/09/19 03:13 Assessment/Plan Assessment/Plan COPD -SVNs -Monitor Afib RVR- now converted to sinus -Po meds -Eliquis -Cardiology consulted Fever r/o sepsis -check LA -Check Lacy cultures -Start empiric Zosyn -check CXR NSTEMI - type 2 secondary to Afib RVR per cardiology S/p Cath yesterday -Stent to LAD -Echo 09/18 EF 45-50% Anemia -Check occult stool CAD Marijuanna use -Education Tobacco hx SHERIDAN SOLIS DO May 09, 2019 05:52
[2019-05-09] MEDS ORDERED: LACTATED RINGERS 1,000 ML IV SCH (06:00)
[2019-05-09] MEDS ORDERED: PIPERACILLIN/TAZO 4.5 GM/NS 100 ML IV NR ×2 (06:45)
--- NOTE | 2019-05-09 07:08 | Diagnostic Imaging Report ---
Indication: Chest pain. Findings: Air trapping and COPD as a chronic finding stable from 05/07/2019. No effusion, pneumothorax or failure pattern. No focal alveolar consolidation. Impression: Stable chronic findings. Dictated by: Dictated on workstation # [id number]
[2019-05-09] MEDS: HYDROXYCHLOROQUINE 200 MG (PLAQUENIL) TAB PO SCH (07:28)
[2019-05-09] MEDS: PANTOPRAZOLE 20 MG TABLET (PROTONIX) PO SCH (07:28)
[2019-05-09 08:00] VITALS: BP 109/63
[2019-05-09 08:31] LABS: BILIRUBIN,URINE NEGATIVE (NEGATIVE); CLARITY,URINE CLEAR; COLOR,URINE YELLOW; GLUCOSE, URINE (UA) NEGATIVE (NEGATIVE); KETONES,URINE NEGATIVE (NEGATIVE); LEUKOCYTE ESTERASE ,URINE NEGATIVE (NEGATIVE); NITRITE,URINE NEGATIVE (NEGATIVE); PH,URINE 6.5 (5-9); PROTEIN,URINE NEGATIVE (NEGATIVE); UROBILINOGEN,URINE NORMAL (NORMAL)
[2019-05-09 08:40] LABS: BACTERIA,URINE TRACE /HPF; RBC,URINE 0-2 /HPF; SQUAMOUS EPITHELIAL CELL,UR RARE /HPF
[2019-05-09] MEDS ORDERED: ATOR40TA PO (08:40)
[2019-05-09] MEDS ORDERED: METO-333 PO (08:40)
[2019-05-09] MEDS ORDERED: DILT360C26 PO (08:40)
[2019-05-09] MEDS ORDERED: ASPI-999 PO (08:40)
[2019-05-09] MEDS ORDERED: CLOP75TA28 PO (08:40)
[2019-05-09] MEDS: FAMOTIDINE 20 MG (PEPCID) TABLET PO SCH (08:53)
[2019-05-09] MEDS: APIXABAN 5 MG (ELIQUIS) TABLET PO SCH (08:53)
[2019-05-09] MEDS: DILTIAZEM 180 MG (CARDIZEM CD) CAP PO SCH (08:53)
[2019-05-09] MEDS: SUCRALFATE 1 GM (CARAFATE) TAB PO SCH ×2 (08:53→13:14)
[2019-05-09] MEDS: ASPIRIN E.C. 81 MG (ECOTRIN) TAB PO SCH (08:53)
[2019-05-09] MEDS ORDERED: CLOPIDOGREL 75 MG (PLAVIX) TABLET PO SCH (09:00)
--- NOTE | 2019-05-09 09:00 | Progress Note-Cardiology ---
Cardiology SOAP Progress Note Subjective: Feels well today No cp or palp or syncope or shortness of breath Wishes to go home Objective: I&O/Vital Signs 05/08/19 05/09/19 05/09/19 05/09/19 23:13 00:00 01:00 04:00 Temp 98.5 Pulse 77 62 61 55 Resp 18 17 16 B/P (MAP) 97/57 (70) 107/66 (80) 111/73 (86) Pulse Ox 96 92 95 O2 Delivery Room Air Room Air Room Air 05/09/19 05/09/19 05/09/19 05/09/19 04:00 07:00 08:00 08:00 Temp 98.8 Pulse 58 57 Resp 21 B/P (MAP) 109/63 (78) Pulse Ox 98 O2 Delivery Room Air Room Air 05/09/19 00:00 Intake Total 325 ml Output Total 950 ml Balance -625 ml Weight (Pounds): 160 Weight (Ounces): 3.0 Weight (Calculated Kilograms): 72.786115 Constitutional: AAO x 3, well-developed, well-nourished Respiratory: No accessory muscle use, No respiratory distress; chest expansion is symmetric, chest is bilaterally symmetric, lungs clear to auscultation, other (prolonged expiratory phase) Cardiovascular: regular rate-rhythm; No JVD; S1 and S2 Gastrointestional: No tender; soft, round, audible bowel sounds Extremities: no lower extremity edema bilateral Neurologic/Psychiatric: grossly intact, power is 5/5 both on sides Skin: No rash on exposed areas, No ulcerations on exposed areas Results/Procedures: Labs Laboratory Tests 05/08/19 11:17: Stool Occult Blood Immunoassay NEGATIVE 05/09/19 03:13: White Blood Count 7.0, Red Blood Count 3.93L, Hemoglobin 10.9L, Hematocrit 33L, Mean Corpuscular Volume 83, Mean Corpuscular Hemoglobin 28, Mean Corpuscular Hemoglobin Concent 33, Red Cell Distribution Width 14.4, Platelet Count 367, Mean Platelet Volume 8.3, Neutrophils (%) (Auto) 67, Lymphocytes (%) (Auto) 19, Monocytes (%) (Auto) 13H, Eosinophils (%) (Auto) 1, Basophils (%) (Auto) 0, Neutrophils # (Auto) 4.7, Lymphocytes # (Auto) 1.4, Monocytes # (Auto) 0.9, Eosinophils # (Auto) 0.1, Basophils # (Auto) 0.0, Sodium Level 136, Potassium Level 3.7, Chloride Level 106, Carbon Dioxide Level 19L, Anion Gap 11, Blood Urea Nitrogen 11, Creatinine 1.00, Estimat Glomerular Filtration Rate > 60, BUN/Creatinine Ratio 11, Glucose Level 107H, Calcium Level 8.3L, Phosphorus Level 3.7, Magnesium Level 1.8 05/09/19 06:15: Lactic Acid Level 1.02 05/09/19 08:20: Urine Color YELLOW, Urine Clarity CLEAR, Urine pH 6.5, Urine Specific [place] 1.010L, Urine Protein NEGATIVE, Urine Glucose (UA) NEGATIVE, Urine Ketones NEGATIVE, Urine Nitrite NEGATIVE, Urine Bilirubin NEGATIVE, Urine Urobilinogen NORMAL, Urine Leukocyte Esterase NEGATIVE, Urine RBC (Auto) 1+H, Urine RBC 0-2, Urine WBC NONE, Urine Squamous Epithelial Cells RARE, Urine Crystals NONE, Urine Bacteria TRACE, Urine Casts NONE, Urine Mucus NEGATIVE, Urine Culture Indicated NO Microbiology 05/06/19 Blood Culture - Preliminary, 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 Card cath of 05/08/19: 90% ostial and prox D1 treated with Alp Xience 2.25x28 stent, and 70% mid LAD treated with PTCA. There are patent stents with up to 40% instent restenosis in the RCA (placed in 2014: 2.5 x 38, 2.75 x 28, 3.0 x 20 mm Promus Premier). LVEF 60. LVEDP 11 Acute renal insufficiency likely d/t intravascular vol depletion, improved with hydration Paroxysmal atrial fibrillation, first diagnosed in October 2017, stroke prophylaxis Eliquis. History of paroxysmal SVT TSH WNL per lab of 05-06-[address] Molina Sep 2017 showed normal LV size and EF of 45-50%, normal left atrial size Peptic ulcer disease with history of gastritis and esophagitis in the past Hyperlipidemia treated with statins Tobaccoism - had quit previously, but has been back to smoking lately Positive for marijuana use on lab of 05-06-19 Hypertension Mild bilat carotid dz per u/s of Nov [address] Molina H/o [place] spotted fever and rheumatoid arthritis Plan: * We reviewed and discussed with him and his fam the results of cath and interventions undertaken on 05/08/19 * I had a long and detailed discussion with him * We have added Plavix. We are continuing ASA and Eliquis. After a week or two, ASA can be stopped and Plavix and Eliquis continued. After a year, Plavix can be switched to ASA. We have advised compliance * We advised complete avoidance of tobacco and any drug use * We answered his questions in detail * We have advised close outpatient f/u with SKYLER Lam MD FACP FAC CCDS May 09, 2019 09:00
[2019-05-09 12:00] VITALS: BP 132/80
[2019-05-09] MEDS ORDERED: AZIT250T12 PO (12:17)
--- NOTE | 2019-05-09 12:19 | Discharge Summary ---
Diagnosis/Chief Complaint Date of Admission May 06, 2019 at 10:24 Date of Discharge 05/09/2019 Admission Diagnosis Admission Diagnosis Atypical Chest pain Shortness of breath Discharge Diagnosis Atrial Fibrillation with RVR NSTEMI CAD h/o PUD HTN RA COPD Exacerbation Discharge Summary-Simple/Stand Procedures Cath 05/08/2019 with stent placed Echo EF 45-50% Consultations Dr Hoffman: Cardiology Dr Gutierrez: Pulmonology Discharge Physical Examination Allergies: Coded Allergies: No Known Drug Allergies (Unverified , 08/20/17) Vitals & I&Os Vital Sign - Last 12Hours Date Time Temp Pulse Resp B/P (MAP) Pulse Ox O2 Delivery O2 Flow Rate FiO2 05/09/19 12:00 98.8 05/09/19 08:00 Room Air 05/09/19 08:00 57 21 109/63 (78) 98 05/07/19 12:33 0.00 Intake and Output 05/08/19 23:59 Intake Total 325 ml Output Total 950 ml Balance -625 ml General Appearance: Alert, Oriented X3, Cooperative, No Acute Distress HEENT: Mucous Memb Moist/[place] Respiratory: Clear to Auscultation, Normal Air Movement Cardiovascular: Regular Rate, No Murmurs Abdominal: Normal Bowel Sounds, Soft, No Tenderness, No Masses Extremities: No Edema, No Tenderness/Swelling Skin: No Rashes, No Breakdown Neuro: Strength at 5/5 X4 Ext, Cranial Nerves 3-12 NL Psych/Mental Status: Mental Status NL, Mood NL Hospital Course Was the Problem List Reviewed?: Yes See final discharge diagnosis. Radiology Reviewed NAME: [facility] REC#: [id number] PT STATUS: ADM IN : 1955 PHYSICIAN: TAY CARRASQUILLO DO ADMIT DATE: 05/06/19/ICU Signed Date of Exam: 05/06/19 CHEST 1 VIEW, AP/PA ONLY EXAMINATION: Chest 1 view INDICATION: Atrial fibrillation. COMPARISON: 05/05/2019. FINDINGS: Defibrillator pads project over the left chest. There is vascular congestion and enlargement of the marylou in keeping with mild pulmonary edema. No pneumothorax. No pleural effusion. Heart size is normal. No pneumothorax. Previously seen airspace opacity in the right midlung has resolved and was likely atelectasis. IMPRESSION: 1. Mild pulmonary edema. Dictated by: Dictated on workstation # [id number] Dict: 05/06/19 0956 Trans: 05/06/19 1051 Interpreted by: JANELLE BLANCO MD Electronically signed by: JANELLE BLANCO MD 05/06/19 1051 Discussion & Recommendations 63 yo M that presented to ER with epigastric abdominal pain. States that he thought that it was his PUD. Patient was found to be in Atrial fibrillation with RVR. He was started on Cardizem drip to control his rate. Patient had a bump in troponin and has known CAD with h/o stents. Patient underwent repeat cath and had additional stents placed. At time of discharge patient was feeling much better other then his chronic RA pain. He will have close f.u with Dr Molina and PCP Victorino Knapp Discharge Condition at discharge Stable Instructions to patient/family Please see electronic discharge instructions given to patient. Discharge Medications Reviewed and agree with Discharge Medication list on patient's Discharge Instruction sheet Clinical Quality Measures DVT/VTE Risk/Contraindication: Risk Factor Score Per Nursin RFS Level Per Nursing on Admit: 3=High Copy Copies To 1: [facility]: JAMAL London MD May 09, 2019 12:19
--- NOTE | 2019-05-09 12:19 | Discharge Instructions ---
Discharge [facility] Discharge Medications New, Converted or Re-Newed RX: Transmitted to Pharmacy New Medications: Aspirin (Aspirin) 81 Mg Tab.chew 81 MG PO DAILY, #30 TAB 5 Refills Atorvastatin Calcium (Lipitor) 40 Mg Tablet 40 MG PO DAILY, #30 TAB 5 Refills Azithromycin (Azithromycin) 250 Mg Tablet 250 MG PO DAILY for 4 Days, #4 TAB Diltiazem HCl (Cardizem Cd) 360 Mg Cap.er.24h 360 MG PO DAILY, #30 CAP 5 Refills Clopidogrel Bisulfate (Clopidogrel) 75 Mg Tablet 75 MG PO DAILY, #30 TAB 5 Refills Changed Medications: Metoprolol Tartrate (Metoprolol Tartrate) 25 Mg Tablet 12.5 MG PO BID, #60 TAB (Changed from: 25 MG) Continued Medications: Apixaban (Eliquis) 5 Mg Tablet 5 MG PO BID, TAB Famotidine (Pepcid) 20 Mg Tablet 20 MG PO BID, TAB Hydroxychloroquine Sulfate (Hydroxychloroquine Sulfate) 200 Mg Tablet 200 MG PO BID, TAB Mometasone Furoate (Asmanex Hfa) 13 Gm Hfa.aer.ad 1 PUFF INH BID PRN for SHORTNESS OF BREATH, INHALER Omeprazole (Omeprazole) 20 Mg Capsule.dr 20 MG PO BID, CAP Ondansetron (Ondansetron Odt) 4 Mg Tab.rapdis 4 MG PO Q4H PRN for NAUSEA/VOMITING-1ST LINE, TAB Sucralfate (Carafate) 1 Gm Tablet 1 GM PO QID, TAB TAKE 30 MINUTES BEFORE MEALS AND AT BEDTIME. MAY CRUSH AND MIX WITH 5-10 ML OF WATER TO MAKE SLURRY FOR BETTER EFFECT Discontinued Medications: Diltiazem HCl (Diltiazem 24Hr ER) 240 Mg Cap.er.24h 240 MG PO DAILY, CAP Tofacitinib Citrate (Xeljanz) 5 Mg Tablet MG PO DAILY, TAB THIS IS A SAMPLE HE GETS FROM THE OFFICE AND THE STRENGTH IS UNKNOWN. Patient Instructions Goal/Follow Up Appt: F.u with Victorino Knapp this week Activity & Diet Discharge Diet: Cardiac Diet Activity as Tolerated: Yes Copy Copies To 1: Victorino WONG APRN GAULT, HOLLY R MD May 09, 2019 12:19
[2019-05-09] MEDS ORDERED: PIPERACILLIN/TAZOBACTAM (BULK) 4.5 GM in NS (IVPB) 100 ML IV SCH (13:00)
== END 2019-05-09 13:50 | disposition home or self-care (01) | DRG 246 ==
LOC: EDUNIT# 09:04 → ER 09:05 → ICU 10:24 → 4TH 05-07 10:16 → ICU 05-08 13:40
PROVIDERS: ADMIT Internal Medicine; ATTEND Family Medicine
PROC: 027034Z Dilation of Coronary Artery, One Artery with Drug-eluting Intraluminal Device, Percutaneous Approach (ICD-10-PCS; principal; 2019-05-08)
PROC: 02703ZZ Dilation of Coronary Artery, One Artery, Percutaneous Approach (ICD-10-PCS; 2019-05-08)
DX: I48.0 Paroxysmal atrial fibrillation (principal); I21.A1 Myocardial infarction type 2; J44.1 Chronic obstructive pulmonary disease with (acute) exacerbation; T82.855A Stenosis of coronary artery stent, initial encounter; I25.10 Atherosclerotic heart disease of native coronary artery without angina pectoris; I10 Essential (primary) hypertension; M06.9 Rheumatoid arthritis, unspecified; K27.9 Peptic ulcer, site unspecified, unspecified as acute or chronic, without hemorrhage or perforation; N28.9 Disorder of kidney and ureter, unspecified; E78.2 Mixed hyperlipidemia; F17.210 Nicotine dependence, cigarettes, uncomplicated; F12.90 Cannabis use, unspecified, uncomplicated; I77.89 Other specified disorders of arteries and arterioles; D64.9 Anemia, unspecified; I47.1 Supraventricular tachycardia; E86.9 Volume depletion, unspecified; K21.9 Gastro-esophageal reflux disease without esophagitis; E78.00 Pure hypercholesterolemia, unspecified; M19.91 Primary osteoarthritis, unspecified site; Z87.19 Personal history of other diseases of the digestive system; Z79.01 Long term (current) use of anticoagulants
CPT/HCPCS: 36415; 71045; 80048; 80053; 80061; 80306; 80320; 81000; 82150; 82274; 82550; 82553; 82962; 83605; 83690; 83735; 83874; 83880; 84100; 84443; 84484; 85025; 85610; 85730; 87040; 87081; 93005; 93041; 93306; 93458; 96365; 96366; 96375

== ENCOUNTER 2019-05-09 22:08 | Emergency (ER) | payer OTHER ==
[~2019-05-09] VITALS: Ht 185.4 cm; Wt 72.6 kg
[~2019-05-09 22:08] MED LIST changes: +ASPI-999 PO; +ATOR40TA PO; +CLOP75TA28 PO; +DILT360C26 PO; +TOFA5TAB PO
--- NOTE | 2019-05-09 22:10 | NUR ---
NOTIFIED NESTOR CAMERON OF PT CONDITION.
--- NOTE | 2019-05-09 22:13 | NUR ---
pt here with " girlfriend". pt alert gcs 15. pt was just d/cd hospital today . pt has heart cath with stents last week. pt moaning and groaning n pain c/o chest pain rating 10. associated with dyspnea. no acute sighns of dyspnea noted. pt denies n/v/d. dr came in room to see pt so my lungs and abd assessment deferred to dr exam. pt relates he had a fever while in the hospital last noc. tele applied by me shows sr 85. done reema pt at 2221.
--- NOTE | 2019-05-09 22:19 | NUR ---
ekg in progress
--- NOTE | 2019-05-09 22:33 | NUR ---
labs to lab by me including blood cx and lactic
[2019-05-09] MEDS: ASPIRIN 81 MG CHEW (CHILDREN'S ASA) PO ONE (22:36)
[2019-05-09] MEDS: NITROGLYCERIN 0.4 MG SL TABS BTL 25'S SL PRN (22:37)
[2019-05-09 22:39] LABS: BASOPHILS % (AUTO) 0 % (0-10); EOSINOPHILS # (AUTO) 0.1 10^3/uL (0.0-0.3); EOSINOPHILS % (AUTO) 2 % (0-10); HEMATOCRIT 33 % (40-54); HEMOGLOBIN 10.9 G/DL (13.3-17.7); LYMPHOCYTES # (AUTO) 1.2 X 10^3 (1.0-4.0); LYMPHOCYTES % (AUTO) 15 % (12-44); MEAN CORPUSCULAR HEMOGLOBIN 27 PG (25-34); MEAN CORPUSCULAR HGB CONC 33 G/DL (32-36); MEAN CORPUSCULAR VOLUME 83 FL (80-99); MEAN PLATELET VOLUME 8.5 FL (7.4-10.4); MONOCYTES % (AUTO) 12 % (0-12); NEUTROPHILS # (AUTO) 5.8 X 10^3 (1.8-7.8); NEUTROPHILS % (AUTO) 71 % (42-75); PLATELET COUNT 395 10^3/uL (130-400); RED CELL DISTRIBUTION WIDTH 14.3 % (10.0-14.5); WHITE BLOOD COUNT 8.1 10^3/uL (4.3-11.0)
--- NOTE | 2019-05-09 22:51 | NUR ---
pt remains alert gcs 15. girlfriend remains in the room. pt relates pain as " still the same". bp machineis 109/71 ausc hr 80 reg ausc resp 20 normal recheck temp 100.1 p ox r/a is 94. tele shows sr 84.i notified who said no need for more nitro and will be ordering gi cocktail.
[2019-05-09 22:52] LABS: INR 1.4 (0.8-1.4); PROTHROMBIN TIME PATIENT 17.5 SEC (12.2-14.7)
[2019-05-09] MEDS: LIDOCAINE 2% VISCOUS 15 ML UDC PO ONE (22:59)
[2019-05-09] MEDS: ANTACID SUSP 30 ML UDC (MYLANTA) PO ONE (22:59)
[2019-05-09 23:15] LABS: ALANINE AMINOTRANSFERASE 10 U/L (0-55); ALBUMIN 3.4 GM/DL (3.2-4.5); ALKALINE PHOSPHATASE 83 U/L (40-136); BILIRUBIN,TOTAL 0.5 MG/DL (0.1-1.0); BUN/CREATININE RATIO 13; CALCIUM 8.7 MG/DL (8.5-10.1); CARBON DIOXIDE 19 MMOL/L (21-32); CHLORIDE 102 MMOL/L (98-107); CREATININE SERUM 1.15 MG/DL (0.60-1.30); GFR ESTIMATED > 60; GLUCOSE 100 MG/DL (70-105); MAGNESIUM 1.9 MG/DL (1.8-2.4); POTASSIUM 3.6 MMOL/L (3.6-5.0); SODIUM 136 MMOL/L (135-145); TOTAL PROTEIN 6.6 GM/DL (6.4-8.2)
--- NOTE | 2019-05-09 23:30 | NUR ---
time is approx. pt relates pain was better and has now inc again. pain rating 7. pt alert gcs 15. . no acute sighns of dyspnea noted. bp machine is 114/66 tele shows sr 82 p ox r/a is 95.
--- NOTE | 2019-05-09 23:51 | Diagnostic Imaging Report ---
INDICATION: Chest pain. Frontal chest obtained at 10:29 p.m. hrs. and compared to same day at 6:49 a.m. FINDINGS: Heart is normal in size. Mediastinal silhouette is unremarkable. There is COPD change with hyperinflation with chronic appearing increased interstitial markings. There is no acute consolidation or pneumothorax or pleural fluid. IMPRESSION: COPD changes with no acute change compared to earlier today. There is no new infiltrate. Dictated by: Dictated on workstation # [id number]
[2019-05-09] MEDS: IOHEXOL 350 MG/ML 150 ML (OMNIPAQUE 350) VIAL IV ONE (23:59)
[2019-05-10] MEDS: NS 100 ML (IVPB) BAG IV ONE
[2019-05-10] MEDS ORDERED: HOLD METFORMIN - RECEIVED CONTRAST 20 ML VIAL IV SCH
[2019-05-10] MEDS: morphine INJ 10 MG/ML 1ML (SYR OR VIAL) IVP STA (00:16)
--- NOTE | 2019-05-10 00:16 | NUR ---
bp machine is 118/68 tele shows sr 79 p ox r/a is [address] and i am giving morphine now for pain rating 10.
--- NOTE | 2019-05-10 00:58 | NUR ---
report to carley wu.
[2019-05-10] MEDS: NS IV 1000 ML 1,000 ML IV ONE (01:12)
[2019-05-10 01:13] LABS: BILIRUBIN,URINE NEGATIVE (NEGATIVE); CLARITY,URINE CLEAR; COLOR,URINE YELLOW; GLUCOSE, URINE (UA) NEGATIVE (NEGATIVE); KETONES,URINE 3+ (NEGATIVE); LEUKOCYTE ESTERASE ,URINE 1+ (NEGATIVE); NITRITE,URINE NEGATIVE (NEGATIVE); PH,URINE 5 (5-9); PROTEIN,URINE 2+ (NEGATIVE); UROBILINOGEN,URINE NORMAL (NORMAL)
[2019-05-10] MEDS: PIPERACILLIN/TAZOBACTAM (BULK) 4.5 GM in NS (IVPB) 100 ML IV ONE (01:13)
[2019-05-10] MEDS: PIPERACILLIN/TAZO 4.5 GM VIAL (ZOSYN) IV ONE (01:13)
[2019-05-10] MEDS: KETOROLAC 30 MG/ML VIAL IVP ONE (01:14)
[2019-05-10] MEDS: ACETAMINOPHEN 500 MG TAB (TYLENOL) PO ONE (01:14)
[2019-05-10] MEDS: NS (IVPB) 100 ML ONE (01:15)
[2019-05-10 01:20] LABS: BACTERIA,URINE FEW /HPF; RBC,URINE 0-2 /HPF; SQUAMOUS EPITHELIAL CELL,UR RARE /HPF; WBC,URINE RARE /HPF
--- NOTE | 2019-05-10 02:53 | ED General ---
General Chief Complaint: Chest Pain Stated Complaint: CP Nursing Triage Note: chest pain Nursing Sepsis Screen: No Definite Risk Source of Information: Patient, Old Records Exam Limitations: No Limitations History of Present Illness Date Seen by Provider: May 09, 2019 Time Seen by Provider: 22:12 Initial Comments This 63-year-old man presents to the emergency room with complaints of chest and epigastric pain starting this afternoon and becoming severe at 16:00. Pain seems to be worse with inspiration. He was seen on May 05 for epigastric pain. Workup was unremarkable and his therapies for gastritis and possible ulcer were intensified. He then returned on May 06 with atrial fibrillation and RVR. He had elevated troponin and a cardiac angiography was performed by Dr. Hoffman. He was found to have multiple lesions requiring intervention. One lesion was stented and another underwent angioplasty. He was dismissed from the hospital this morning. He is taking Plavix as prescribed. Patient reports he has a history of gastric ulcer and had not been taking medications for it recently prior to his visit on May 05. Patient is noted to be febrile with a temperature of 100.8. Patient is anticoagulated on Eliquis due to history of A. fib. Allergies and Home Medications Allergies Coded Allergies: No Known Drug Allergies (Unverified , 08/20/17) Home Medications Apixaban 5 Mg Tablet, 5 MG PO BID, (Reported) Aspirin 81 Mg Tab.chew, 81 MG PO DAILY Prescribed by: PATTI MOULTON on 05/09/19 08 Atorvastatin Calcium 40 Mg Tablet, 40 MG PO DAILY Prescribed by: PATTI MOULTON on 05/09/19 0840 Azithromycin 250 Mg Tablet, 250 MG PO DAILY Prescribed by: JAMAL HEATH on 05/09/19 1217 Clopidogrel Bisulfate 75 Mg Tablet, 75 MG PO DAILY Prescribed by: PATTI MOULTON on 05/09/19 0840 Diltiazem HCl 360 Mg Cap.er.24h, 360 MG PO DAILY Prescribed by: PATTI MOULTON on 05/09/19 0840 Famotidine 20 Mg Tablet, 20 MG PO BID, (Reported) Hydroxychloroquine Sulfate 200 Mg Tablet, 200 MG PO BID, (Reported) Metoprolol Tartrate 25 Mg Tablet, 12.5 MG PO BID Prescribed by: PATTI MOULTON on 05/09/19 0840 Mometasone Furoate 13 Gm Hfa.aer.ad, 1 PUFF INH BID PRN for SHORTNESS OF BREATH, (Reported) Omeprazole 20 Mg Capsule.dr, 20 MG PO BID, (Reported) Ondansetron 4 Mg Tab.rapdis, 4 MG PO Q4H PRN for NAUSEA/VOMITING-1ST LINE, (Reported) Sucralfate 1 Gm Tablet, 1 GM PO QID, (Reported) TAKE 30 MINUTES BEFORE MEALS AND AT BEDTIME. MAY CRUSH AND MIX WITH 5-10 ML OF WATER TO MAKE SLURRY FOR BETTER EFFECT Patient Home Medication List Home Medication List Reviewed: Yes Review of Systems Review of Systems Constitutional: see HPI EENTM: no symptoms reported Respiratory: see HPI Cardiovascular: see HPI Gastrointestinal: see HPI Genitourinary: no symptoms reported Musculoskeletal: no symptoms reported Skin: no symptoms reported Psychiatric/Neurological: No Symptoms Reported Hematologic/Lymphatic: No Symptoms Reported Immunological/Allergic: no symptoms reported Past Sjkwqil-Upwsse-Cfspoq Hx Past Med/Social Hx: Reviewed Nursing Past Med/Soc Hx Patient Social History Alcohol Use: Denies Use Recreational Drug Use: Yes (" weed" last used 1 week ago) Smoking Status: Current Everyday Smoker Type Used: Cigarettes Former Smoker, Quit: Feb 02, 2018 2nd Hand Smoke Exposure: Yes Recent Foreign Travel: No Contact w/Someone Who Travel: No Recent Infectious Disease Expo: No Recent Hopitalizations: No Physical Abuse: No Sexual Abuse: No Immunizations Up To Date Tetanus Booster (TDap): Unknown Date of Pneumonia Vaccine: Sep 09, 2018 Date of Influenza Vaccine: Sep 09, 2018 Seasonal Allergies Seasonal Allergies: No Past Medical History Surgeries: Yes (CARDIAC CATH--STENTS X 3) Cardiac, Coronary Stent Respiratory: Yes Pneumonia, COPD Currently Using CPAP: No Currently Using BIPAP: No Cardiac: Yes (STENTS, cath,) Atrial Fibrillation, Coronary Artery Disease, Heart Attack, High Cholesterol, Hypertension Neurological: No Reproductive Disorders: No Sexually Transmitted Disease: No Genitourinary: No Gastrointestinal: Yes Gastroesophageal Reflux, Ulcer Musculoskeletal: Yes (SHOULDER, ELBOW, HAND PAIN, PAIN FROM [place] SPOTTED FEVER ) Arthritis, Rheumatoid Arthritis Endocrine: No HEENT: No Cancer: No Psychosocial: No Integumentary: No Blood Disorders: No Adverse Reaction/Blood Tranf: No Family Medical History Cardiovascular disease Cataracts Diabetes mellitus Glaucoma Hypertension Myocardial infarction Respiratory disorder Thyroid disease Visual disorder No Family History of: AIDS Abdominal aortic aneurysm [place]'s disease Alcoholism Alzheimer's disease Aphasia Arthritis Asthma Cancer of mouth Colon cancer Completed stroke Congenital disease Congenital heart disease Coronary thrombosis Cystic fibrosis Deafness or hearing loss Dementia Drug abuse Dysphasia Fibrocystic disease of breast Gastroenteritis Headache disorder Hypercholesterolemia Infertility Kidney disease Neoplasm Not obtainable due to adoption Osteoporosis Parkinson's disease Prostate cancer Psychosocial problem Seizure disorder Severe allergy Tuberculosis Diabetes, Hypertension Physical Exam Vital Signs Vital Signs - First Documented 05/09/19 22:13 Temp 100.8 Pulse 88 Resp 20 B/P (MAP) 135/71 (92) Pulse Ox 96 O2 Delivery Room Air Capillary Refill : Less Than 3 Seconds Height, Weight, BMI Height: 6'1.00" Weight: 160lbs. 3.0oz. 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 Norm as Tested Skin: Normal Color, Warm/Dry Focused Exam Lactate Level 05/09/19 22:28: Lactic Acid Level 1.11 Progress/Results/Core Measures Suspected Sepsis Recent Fever Within 48 Hours: Yes Infection Criteria Present: Suspected New Infection New/Unexplained Altered Menta: No Sepsis Screen: No Definite Risk SIRS Temperature:100.8 Pulse: 88 Respiratory Rate: 20 Laboratory Tests 05/09/19 22:28: White Blood Count 8.1 Blood Pressure 135 /71 Mean: 92 05/09/19 22:28: Lactic Acid Level 1.11 Laboratory Tests 05/09/19 22:28: Creatinine 1.15, INR Comment 1.4, Platelet Count 395, Total Bilirubin 0.5 Results/Orders Lab Results Laboratory Tests Test 05/09/19 22:28 05/10/19 00:52 05/10/19 01:05 Range/Units White Blood Count 8.1 4.3-11.0 10^3/uL Red Blood Count 3.98 L 4.35-5.85 10^6/uL Hemoglobin 10.9 L 13.3-17.7 G/DL Hematocrit 33 L 40-54 % Mean Corpuscular Volume 83 80-99 FL Mean Corpuscular Hemoglobin 27 25-34 PG Mean Corpuscular Hemoglobin Concent 33 32-36 G/DL Red Cell Distribution Width 14.3 10.0-14.5 % Platelet Count 395 130-400 10^3/uL Mean Platelet Volume 8.5 7.4-10.4 FL Neutrophils (%) (Auto) 71 42-75 % Lymphocytes (%) (Auto) 15 12-44 % Monocytes (%) (Auto) 12 0-12 % Eosinophils (%) (Auto) 2 0-10 % Basophils (%) (Auto) 0 0-10 % Neutrophils # (Auto) 5.8 1.8-7.8 X 10^3 Lymphocytes # (Auto) 1.2 1.0-4.0 X 10^3 Monocytes # (Auto) 1.0 0.0-1.0 X 10^3 Eosinophils # (Auto) 0.1 0.0-0.3 10^3/uL Basophils # (Auto) 0.0 0.0-0.1 10^3/uL Prothrombin Time 17.5 H 12.2-14.7 SEC INR Comment 1.4 0.8-1.4 Activated Partial Thromboplast Time 41 H 24-35 SEC Sodium Level 136 135-145 MMOL/L Potassium Level 3.6 3.6-5.0 MMOL/L Chloride Level 102 98-107 MMOL/L Carbon Dioxide Level 19 L 21-32 MMOL/L Anion Gap 15 H 5-14 MMOL/L Blood Urea Nitrogen 15 7-18 MG/DL Creatinine 1.15 0.60-1.30 MG/DL Estimat Glomerular Filtration Rate > 60 BUN/Creatinine Ratio 13 Glucose Level 100 70-105 MG/DL Lactic Acid Level 1.11 0.50-2.00 MMOL/L Calcium Level 8.7 8.5-10.1 MG/DL Corrected Calcium 9.2 8.5-10.1 MG/DL Magnesium Level 1.9 1.8-2.4 MG/DL Total Bilirubin 0.5 0.1-1.0 MG/DL Aspartate Amino Transf (AST/SGOT) 11 5-34 U/L Alanine Aminotransferase (ALT/SGPT) 10 0-55 U/L Alkaline Phosphatase 83 40-136 U/L Myoglobin 109.3 H 10.0-92.0 NG/ML Troponin I 0.073 H 0.060 H <0.028 NG/ML C-Reactive Protein High Sensitivity 19.00 H 0.00-0.50 MG/DL Total Protein 6.6 6.4-8.2 GM/DL Albumin 3.4 3.2-4.5 GM/DL Lipase 17 8-78 U/L Urine Color YELLOW Urine Clarity CLEAR Urine pH 5 5-9 Urine Specific Raven 1.010 L 1.016-1.022 Urine Protein 2+ H NEGATIVE Urine Glucose (UA) NEGATIVE NEGATIVE Urine Ketones 3+ H NEGATIVE Urine Nitrite NEGATIVE NEGATIVE Urine Bilirubin NEGATIVE NEGATIVE Urine Urobilinogen NORMAL NORMAL MG/DL Urine Leukocyte Esterase 1+ H NEGATIVE Urine RBC (Auto) 3+ H NEGATIVE Urine RBC 0-2 /HPF Urine WBC RARE /HPF Urine Squamous Epithelial Cells RARE /HPF Urine Crystals NONE /LPF Urine Bacteria FEW H /HPF Urine Casts NONE /LPF Urine Mucus SMALL H /LPF Urine Culture Indicated CULTURE PENDING My Orders Orders - AIDEE JUNIOR MD Cbc With Automated Diff (05/09/19 22:16) Magnesium (05/09/19 22:16) Chest 1 View, Ap/Pa Only (05/09/19 22:16) Ekg Tracing (05/09/19 22:16) Cardiac Profile 1 (05/09/19 22:16) Comprehensive Metabolic Panel (05/09/19 22:16) Myoglobin Serum (05/09/19 22:16) Protime With Inr (05/09/19 22:16) Partial Thromboplastin Time (05/09/19 22:16) O2 (05/09/19 22:16) Monitor-Rhythm Ecg Trace Only (05/09/19 22:16) Ed Iv/Invasive Line Start (05/09/19 22:16) Nitroglycerin 0.4 Mg Btl 25's (Nitrostat (05/09/19 22:30) Aspirin Chewable Tablet (Baby Aspirin Ch (05/09/19 22:30) Lidocaine 2% Viscous 15 Ml (Xylocaine Vi (05/09/19 23:00) Antacid Suspension (Mylanta Suspension (05/09/19 23:00) Hs C Reactive Protein (05/09/19 22:52) Lipase (05/09/19 22:52) Blood Culture (05/09/19 22:53) Sputum Culture (05/09/19 22:53) Urinalysis (05/09/19 22:53) Urine Culture (05/09/19 22:53) Vital Signs Adult Sepsis Patie Q15M (05/09/19 22:53) Remove Rings In Anticipation O (05/09/19 22:53) Lactic Acid Analyzer (05/09/19 22:53) Ct Marilyn Chest/Noang Abd-Pelv W (05/09/19 23:26) Morphine Injection (Morphine Injection (05/09/19 23:29) Iohexol Injection (Omnipaque 350 Mg/Ml 1 (05/10/19 00:00) Received Contrast (Hold Metformin- Contr (05/10/19 00:00) Ns (Ivpb) (Sodium Chloride 0.9% Ivpb Bag (05/10/19 00:00) Troponin I (05/10/19 00:35) Piperacillin/Tazobactam (Bulk) (Zosyn In (05/10/19 01:00) Acetaminophen Tablet (Tylenol Tablet) (05/10/19 01:00) Ns (Ivpb) (Sodium Chloride 0.9% Ivpb Bag (05/10/19 00:54) Piperacillin Sodium/Tazobactam (Zosyn Vi (05/10/19 00:54) Ketorolac Injection (Toradol Injection) (05/10/19 01:15) Ns Iv 1000 Ml (Sodium Chloride 0.9%) (05/10/19 01:06) Clopidogrel Tablet (Plavix Tablet) (05/10/19 03:45) Medications Given in ED Current Medications Medications Dose Ordered Sig/Keegan Route Start Time Stop Time Status Last Admin Dose Admin Acetaminophen 1,000 mg ONCE ONCE PO 05/10/19 01:00 05/10/19 01:01 DC 05/10/19 01:14 1,000 MG Al Hydrox/Mg Hydrox/Simethicone 30 ml ONCE ONCE PO 05/09/19 23:00 05/09/19 23:01 DC 05/09/19 22:59 30 ML Aspirin 243 mg ONCE ONCE PO 05/09/19 22:30 05/09/19 22:31 DC 05/09/19 22:36 243 MG Clopidogrel Bisulfate 75 mg ONCE ONCE PO 05/10/19 03:45 05/10/19 03:46 DC 05/10/19 03:36 75 MG Iohexol 150 ml ONCE ONCE IV 05/10/19 00:00 05/10/19 00:01 [place] 05/09/19 23:59 125 ML Ketorolac Tromethamine 15 mg ONCE ONCE IVP 05/10/19 01:15 05/10/19 01:16 DC 05/10/19 01:14 15 MG Lidocaine HCl 15 ml ONCE ONCE PO 05/09/19 23:00 05/09/19 23:01 [place] 05/09/19 22:59 15 ML Nitroglycerin 0.4 mg UD PRN SL 05/09/19 22:30 05/10/19 03:46 [place] 05/09/19 22:37 0.4 MG Piperacillin Sod/ Tazobactam Sod 4.5 gm/Sodium Chloride 120 ml @ 240 mls/hr ONCE ONCE IV 05/10/19 01:00 05/10/19 01:29 [place] 05/10/19 01:13 240 MLS/HR Sodium Chloride 100 ml ONCE ONCE IV 05/10/19 00:00 05/10/19 00:01 [place] 05/10/19 00:00 80 ML Sodium Chloride 1,000 ml @ 0 mls/hr Q0M ONCE IV 05/10/19 01:06 05/10/19 01:07 [place] 05/10/19 01:12 999 MLS/HR Vital Signs/I&O 05/09/19 05/10/19 05/10/19 22:13 01:14 03:46 Temp 100.8 100.8 99.8 Pulse 88 77 Resp 20 18 B/P (MAP) 135/71 (92) 114/59 (77) Pulse Ox 96 94 O2 Delivery Room Air Capillary Refill : Less Than 3 Seconds Blood Pressure Mean: 92 Progress Note : Progress Note Patient was seen and examined upon arrival. He was found to be febrile. Chest pain workup and sepsis workup were pursued. He was given aspirin and nitroglycerin. Nitroglycerin did not seem to improve his pain. He was then given GI cocktail. This briefly improved his pain. Rebound pain was treated with morphine and Toradol. Workup included labs that demonstrated a troponin trending downward from prior. Repeat troponin was also trending downward. CRP was significantly elevated but WBC was normal. Because patient has fever in the context of recent procedures, blood cultures were obtained and Zosyn was given for empiric treatment. He was given Tylenol for fever. He was hydrated with IV fluids. Case was discussed with Dr. Hoffman who states his cardiac presentation is complex. He recommends admission which I agree with. Unfortunately, [facility] is on admission diversion due to lack of bed/staff availability. Arrangements were made to transfer patient to [facility] in [place]. The cause of his pain was never definitively determined. He definitely needs endoscopy to evaluate further. Case was discussed with Dr. Mosley, hospitalist at [facility]. He graciously accepted the transfer. ECG Initial ECG Impression Date: May 09, 2019 Initial ECG Impression Time: 22:20 Initial ECG Rate: 77 Initial ECG Rhythm: Normal Sinus Initial ECG Intervals: Normal Comment Normal sinus rhythm with no ST elevation or depression. LVH. No abnormal intervals. Diagnostic Imaging Diagonstic Imaging: Xray Plain Films/CT/US/NM/MRI: chest Comments Chest x-ray viewed by me and report reviewed. See report below: NAME: FE [facility] REC#: [id number] PT STATUS: REG ER : 1955 PHYSICIAN: AIDEE JUNIOR MD ADMIT DATE: 05/09/19/ER Signed Date of Exam: 05/09/19 CHEST 1 VIEW, AP/PA ONLY INDICATION: Chest pain. Frontal chest obtained at 10:29 p.m. hrs. and compared to same day at 6:49 a.m. FINDINGS: Heart is normal in size. Mediastinal silhouette is unremarkable. There is COPD change with hyperinflation with chronic appearing increased interstitial markings. There is no acute consolidation or pneumothorax or pleural fluid. IMPRESSION: COPD changes with no acute change compared to earlier today. There is no new infiltrate. Dictated by: Dictated on workstation # [id number] Dict: 05/09/19 2326 Trans: 05/10/19 0034 Interpreted by: SERGIO TREVINO MD Electronically signed by: SERGIO TREVINO MD 05/10/19 0034 Diagonstic Imaging: CT Plain Films/CT/US/NM/MRI: chest, abdomen, pelvis Comments CT angiogram of the chest with non-angiogram CT of the abdomen and pelvis with contrast was viewed by me and [employer] report reviewed. No acute abnormalities were found to explain patient's pain. CT was negative for pulmonary embolus. Departure Impression Primary Impression: Atypical chest pain Additional Impressions: Epigastric pain Coronary artery disease Qualified Codes: I25.10 - Atherosclerotic heart disease of [place] coronary artery without angina pectoris Fever Qualified Codes: R50.9 - Fever, unspecified Disposition: 02 XFER SHT-TRM HOSP Condition: Improved Transfer Time Spoke to Accepting Phy: 01:[address] Mosley accepting hospitalist Transfer Time: 03:46 [facility] Transfer: EMS Departure-Patient Inst. Referrals: GERHARD [facility] DO (PCP) Primary Care Physician JORGE JACKSON (Family) Primary Care Physician AIDEE JUNIOR MD May 10, 2019 02:53
[2019-05-10] MEDS: CLOPIDOGREL 75 MG (PLAVIX) TABLET PO ONE (03:36)
[2019-05-10 03:46] VITALS: BP 114/59
--- NOTE | 2019-05-10 08:21 | Diagnostic Imaging Report ---
INDICATION: Chest pain. TECHNIQUE: CT imaging of the chest following administration of intravenous contrast according to angiographic protocol. Multiplanar reformatted images. Additionally, post IV contrast CT imaging of the abdomen and pelvis. Auto Exposure Controls were utilized during the CT exam to meet ALARA standards for radiation dose reduction. . CORRELATION STUDY: CT abdomen and pelvis on 05/05/2019. FINDINGS: Chest: The pulmonary arteries demonstrate no filling defect to suggest pulmonary embolism. Heart size is normal. Trace anterior pericardial effusion. There is moderate to marked severity coronary artery calcification. Thoracic aortic contour unremarkable without evidence for aneurysm or intraluminal filling defect to reflect dissection. Borderline enlarged mediastinal and/or hilar lymph nodes. The lung rader do demonstrate rather markedly advanced centrilobular emphysematous changes to be present. Small pleural effusions are present dependently. No consolidating infiltrate suggests pneumonia. Small nodule subpleural region of the left lower lobe central calcification, there is probable granuloma. Additional partially calcified nodule of the junction of the right upper lobe and right middle lobe. Noncalcified pleural-based nodule posterior and lateral right lower lobe. CT abdomen and pelvis: The liver, spleen, pancreas and adrenal glands demonstrate no acute abnormality. Unchanged bilateral adrenal gland nodularity. Some increased density in gallbladder could be reflective of debris or perhaps sludge. Kidneys with normal enhancement. No hydronephrosis or obstruction. Gastrointestinal tract demonstrates no obstruction or inflammation. Mild severity fecal retention. No abdominal ascites or free air. As described, changes about the abdominal aorta. Multilobular saccular aneurysm is present. The infrarenal abdominal aorta maximum dimension of 3.8 cm. No abnormal periaortic fluid collection. Urinary bladder is decompressed. Prostate gland mildly prominent. No acute osseous abnormality. IMPRESSION: 1. No CT evidence for pulmonary embolism or otherwise the [place] the chest. 2. Rather advanced centrilobular emphysematous change about the lung parenchyma. No infiltrate. Scattered areas of nodularity including calcified granulomas. 3. Trace pleural effusions. 4. Rather significant coronary artery calcification. Trace pericardial effusion. 5. Negative acute abnormality about the abdomen and/or pelvis. 2. Abdominal aortic aneurysm measuring just under 4 cm maximum dimension. A preliminary report [facility] by [facility]. Dictated by: Dictated on workstation # [id number]
== END 2019-05-10 03:46 | disposition short-term general hospital (02) ==
LOC: EDUNIT# 22:08 → ER 22:09
DX: I25.10 Atherosclerotic heart disease of native coronary artery without angina pectoris (principal); R10.13 Epigastric pain; R50.9 Fever, unspecified; I48.91 Unspecified atrial fibrillation; J44.9 Chronic obstructive pulmonary disease, unspecified; I10 Essential (primary) hypertension; E78.00 Pure hypercholesterolemia, unspecified; I25.2 Old myocardial infarction; K21.9 Gastro-esophageal reflux disease without esophagitis; M06.9 Rheumatoid arthritis, unspecified; F17.210 Nicotine dependence, cigarettes, uncomplicated; Z87.01 Personal history of pneumonia (recurrent); Z95.5 Presence of coronary angioplasty implant and graft; Z79.02 Long term (current) use of antithrombotics/antiplatelets; Z87.19 Personal history of other diseases of the digestive system; Z91.14 Patient's other noncompliance with medication regimen; Z79.82 Long term (current) use of aspirin; Z82.49 Family history of ischemic heart disease and other diseases of the circulatory system
CPT/HCPCS: 36415; 71045; 71275; 74177; 80053; 81000; 83605; 83690; 83735; 83874; 84484; 85025; 85610; 85730; 86141; 87040; 87088; 93005; 93041; 96361; 96365; 96375

== ENCOUNTER 2019-12-19 18:01 | Observation (INO) | payer MEDICARE, OTHER ==
[~2019-12-19] VITALS: Ht 182 cm; Wt 74.6 kg
[~2019-12-19 18:01] MED LIST changes: -DILT240C PO; +DILT240C91 PO; +DILT240C92 PO; -DILT240C97 PO; -METO-387 PO; +MTP25TSR PO; +OMEP-280 PO; -OMEP20CA12 PO; -TRAM50TA2 PO; +TRM50T PO
[2019-12-19 18:18] LABS: BASOPHILS # (AUTO) 0.1 10^3/uL (0.0-0.1); BASOPHILS % (AUTO) 1 % (0-10); EOSINOPHILS # (AUTO) 0.2 10^3/uL (0.0-0.3); EOSINOPHILS % (AUTO) 3 % (0-10); HEMATOCRIT 40 % (40-54); HEMOGLOBIN 13.5 G/DL (13.3-17.7); LYMPHOCYTES # (AUTO) 4.2 X 10^3 (1.0-4.0); LYMPHOCYTES % (AUTO) 48 % (12-44); MEAN CORPUSCULAR HEMOGLOBIN 29 PG (25-34); MEAN CORPUSCULAR HGB CONC 34 G/DL (32-36); MEAN CORPUSCULAR VOLUME 84 FL (80-99); MEAN PLATELET VOLUME 8.3 FL (7.4-10.4); MONOCYTES # (AUTO) 0.8 X 10^3 (0.0-1.0); MONOCYTES % (AUTO) 9 % (0-12); NEUTROPHILS # (AUTO) 3.4 X 10^3 (1.8-7.8); NEUTROPHILS % (AUTO) 39 % (42-75); PLATELET COUNT 330 10^3/uL (130-400); WHITE BLOOD COUNT 8.6 10^3/uL (4.3-11.0)
[2019-12-19] MEDS ORDERED: LACTATED RINGERS 1,000 ML IV ONE ×2 (18:21→18:25)
--- NOTE | 2019-12-19 18:25 | ED Neurological Problem ---
General Chief Complaint: Trauma-Non Activation Stated Complaint: FELL IN BATHROOM Nursing Triage Note: PT ARRIVED PER EMS, PT FELL IN BATHROOM HAD + LOC, HAS ACUTE MENTAL STATUS CHANGE. HASKINS AND WEAKNESS. PT CONFUSED AND CRYING. PT HAS SL IN PLACE BY EMS #18 L UPPER ARM Nursing Sepsis Screen: No Definite Risk Source: patient Exam Limitations: no limitations History of Present Illness Date Seen by Provider: Dec 19, 2019 Time Seen by Provider: 18:09 Initial Comments Here with report of acute onset of loss of consciousness and/or syncope. Patient was apparently in his room when this occurred. No report of fall. Patient's had to be carried to the car and then the family brought him here. On arrival, patient very weak but family states that he is starting to talk a little bit more now. Apparently at onset of symptoms, patient had called out for help and then worsened until unresponsiveness. Does have history of atrial fibrillation 3 prior stents. Has been on Eliquis but it does not appear he is on it currently. No reported vomiting or breathing problems. Patient is improving. Only complains of headache but denies chest pain or breathing problems. Timing/Duration: 1 hour Severity: moderate, severe Associated Symptoms: confusion; No fever/chills; loss of consciousness; No nausea/vomiting, No seizures; weakness Allergies and Home Medications Allergies Coded Allergies: No Known Drug Allergies (Unverified , 08/20/17) Home Medications Apixaban 5 Mg Tablet, 5 MG PO BID, (Reported) Aspirin 81 Mg Tab.chew, 81 MG PO DAILY Prescribed by: PATTI MOULTON on 05/09/19 08 Atorvastatin Calcium 40 Mg Tablet, 40 MG PO DAILY Prescribed by: PATTI MOULTON on 05/09/19 08 Azithromycin 250 Mg Tablet, 250 MG PO DAILY Prescribed by: JAMAL HEATH on 05/09/19 1217 Clopidogrel Bisulfate 75 Mg Tablet, 75 MG PO DAILY Prescribed by: PATTI MOULTON on 05/09/19 08 Diltiazem HCl 360 Mg Cap.er.24h, 360 MG PO DAILY Prescribed by: PATTI MOULTON on 05/09/19 08 Famotidine 20 Mg Tablet, 20 MG PO BID, (Reported) Hydroxychloroquine Sulfate 200 Mg Tablet, 200 MG PO BID, (Reported) Metoprolol Tartrate 25 Mg Tablet, 12.5 MG PO BID Prescribed by: PATTI MOULTON on 05/09/19 0840 Mometasone Furoate 13 Gm Hfa.aer.ad, 1 PUFF INH BID PRN for SHORTNESS OF BREATH, (Reported) Omeprazole 20 Mg Capsule.dr, 20 MG PO BID, (Reported) Ondansetron 4 Mg Tab.rapdis, 4 MG PO Q4H PRN for NAUSEA/VOMITING-1ST LINE, (Reported) Sucralfate 1 Gm Tablet, 1 GM PO QID, (Reported) TAKE 30 MINUTES BEFORE MEALS AND AT BEDTIME. MAY CRUSH AND MIX WITH 5-10 ML OF WATER TO MAKE SLURRY FOR BETTER EFFECT Patient Home Medication List Home Medication List Reviewed: Yes Review of Systems Review of Systems Constitutional: see HPI; No chills, No fever Eyes: No Symptoms Reported Ears, Nose, Mouth, Throat: no symptoms reported Respiratory: No cough, No short of breath Cardiovascular: No chest pain, No palpitations; syncope Gastrointestinal: No abdominal pain, No nausea, No vomiting Genitourinary: no symptoms reported Musculoskeletal: No back pain; muscle weakness Skin: no symptoms reported Psychiatric/Neurological: Cognitive Dysfunction, Headache, Weakness All Other Systems Reviewed Negative Unless Noted: Yes Past Axmilye-Wjidrb-Fgkbzr Hx Past Med/Social Hx: Reviewed Nursing Past Med/Soc Hx Patient Social History Alcohol Use: Denies Use Recreational Drug Use: No Smoking Status: Former Smoker Type Used: Cigarettes Former Smoker, Quit: Feb 02, 2018 2nd Hand Smoke Exposure: Yes Recent Foreign Travel: No Contact w/Someone Who Travel: No Recent Infectious Disease Expo: No Recent Hopitalizations: No Immunizations Up To Date Tetanus Booster (TDap): Unknown Date of Pneumonia Vaccine: Sep 09, 2018 Date of Influenza Vaccine: Sep 09, 2018 Seasonal Allergies Seasonal Allergies: No Past Medical History Surgeries: Yes (CARDIAC CATH--STENTS X 3) Cardiac, Coronary Stent Respiratory: Yes Pneumonia, COPD Currently Using CPAP: No Currently Using BIPAP: No Cardiac: Yes (STENTS, cath,) Atrial Fibrillation, Coronary Artery Disease, Heart Attack, High Cholesterol, Hypertension Neurological: No Reproductive Disorders: No Sexually Transmitted Disease: No Genitourinary: No Gastrointestinal: Yes Gastroesophageal Reflux, Ulcer Musculoskeletal: Yes (SHOULDER, ELBOW, HAND PAIN, PAIN FROM [place] SPOTTED FEVER ) Arthritis, Rheumatoid Arthritis Endocrine: No HEENT: No Cancer: No Psychosocial: No Integumentary: No Blood Disorders: No Adverse Reaction/Blood Tranf: No Family Medical History Reviewed Nursing Family Hx Cardiovascular disease Cataracts Diabetes mellitus Glaucoma Hypertension Myocardial infarction Respiratory disorder Thyroid disease Visual disorder Diabetes, Hypertension Physical Exam Vital Signs Vital Signs - First Documented 12/19/19 18:01 Temp 36.3 Pulse 44 Resp 16 B/P (MAP) 145/96 (112) Pulse Ox 97 Capillary Refill : Less Than 3 Seconds Height, Weight, BMI Height: 6'1.00" Weight: 160lbs. 3.0oz. 72.668360vm; 22.00 BMI Method:Stated General Appearance: WD/WN, no apparent distress HEENT: PERRL/EOMI, pharynx normal Neck: full range of motion, supple Respiratory: lungs clear, normal breath sounds Cardiovascular: regular rate, rhythm, no murmur Gastrointestinal: non tender, soft Back: normal inspection, no CVA tenderness, no vertebral tenderness Extremities: non-tender, normal inspection Neurologic/Psychiatric: alert, oriented x 3 Crainal Nerves: abnormal speech (slow and slightly slurred); No facial droop Coordination/Gait: abnormal gait (weak overall) Motor/Sensory: no pronator drift, weak motor strength RUE, weak motor strength LUE, weak motor strength RLE, weak motor strength LLE Skin: normal color, warm/dry Stroke Onset of Symptoms Date of Onset of Symptoms: Dec 19, 2019 Time of Symptom Onset: 17:15 Onset of Symptoms: Yes (is set as low chloride level is described) Symptoms onset unknown: No NIH Stroke Scale Assessment Select: Initial Level of Consciousness: 0=Alert (0), Level of Consciousness- Questions: 0=Answers both month/age (0), LOC Commands: 0=Performs both tasks (0), Visual [place]: 0=No visual loss (0), Facial Movement (Facial Paresis): 0=Normal symmetrical mnt (0), Motor Function-Arms Right: 0=No drift (0), Motor Function-Arms Left: 0=No drift (0), Motor Function-Legs Right: 0=No drift (0), Motor Function-Legs Left: 0=No drift (0), Limb Ataxia: 0=Absent (0), Sensory: 0=Normal:no loss (0), Best Language: 0=No aphasia (0), Dysarthria: 1=Mild to moderate loss (1), Extinction & Inattention: 0=No abnormality (0), Total: 1 Stroke Thrombolytic Exclusion Age 18 or Over: Yes Acute intenal hemorrhage: No History of CVA: No Uncontrolled Coagulation Defec: No Intracranial Hemorrhage: No Severe Hypertension: No GI or Bleed: No Subarachnoid Hemorrhage: No Intracranial Neoplasm/Aneurysm: No Oral Anticoagulants: No Surgery or Trauma: No Puncture of Non-Compressible V: No Recent CPR: No Diabetic Hemorrhagic Retinopat: No Organ Biopsy: No Recent Obstetric Delivery: No Glucose: No Significant Hepatic Dysfunctio: No NIH Stoke Scale >22: No Bacterial Endocarditis: No Pericarditis: No Improving Symptoms: Yes Platelets: No TPA Contraindication: Yes (low stroke scale and improving symptoms) Progress/Results/Core Measures Results/Orders Lab Results Laboratory Tests Test 12/19/19 18:10 12/19/19 19:47 Range/Units White Blood Count 8.6 4.3-11.0 10^3/uL Red Blood Count 4.72 4.35-5.85 10^6/uL Hemoglobin 13.5 13.3-17.7 G/DL Hematocrit 40 40-54 % Mean Corpuscular Volume 84 80-99 FL Mean Corpuscular Hemoglobin 29 25-34 PG Mean Corpuscular Hemoglobin Concent 34 32-36 G/DL Red Cell Distribution Width 14.0 10.0-14.5 % Platelet Count 330 130-400 10^3/uL Mean Platelet Volume 8.3 7.4-10.4 FL Neutrophils (%) (Auto) 39 L 42-75 % Lymphocytes (%) (Auto) 48 H 12-44 % Monocytes (%) (Auto) 9 0-12 % Eosinophils (%) (Auto) 3 0-10 % Basophils (%) (Auto) 1 0-10 % Neutrophils # (Auto) 3.4 1.8-7.8 X 10^3 Lymphocytes # (Auto) 4.2 H 1.0-4.0 X 10^3 Monocytes # (Auto) 0.8 0.0-1.0 X 10^3 Eosinophils # (Auto) 0.2 0.0-0.3 10^3/uL Basophils # (Auto) 0.1 0.0-0.1 10^3/uL Prothrombin Time 13.7 12.2-14.7 SEC INR Comment 1.0 0.8-1.4 Activated Partial Thromboplast Time 26 24-35 SEC D-Dimer 2.20 H 0.00-0.49 UG/ML Sodium Level 138 135-145 MMOL/L Potassium Level 4.0 3.6-5.0 MMOL/L Chloride Level 106 98-107 MMOL/L Carbon Dioxide Level 23 21-32 MMOL/L Anion Gap 9 5-14 MMOL/L Blood Urea Nitrogen 35 H 7-18 MG/DL Creatinine 1.44 H 0.60-1.30 MG/DL Estimat Glomerular Filtration Rate 49 BUN/Creatinine Ratio 24 Glucose Level 146 H 70-105 MG/DL Glucometer 151 H 70-110 MG/DL Calcium Level 9.0 8.5-10.1 MG/DL Corrected Calcium 9.2 8.5-10.1 MG/DL Total Bilirubin 0.3 0.1-1.0 MG/DL Aspartate Amino Transf (AST/SGOT) 12 5-34 U/L Alanine Aminotransferase (ALT/SGPT) 12 0-55 U/L Alkaline Phosphatase 79 40-136 U/L Troponin I < 0.028 <0.028 NG/ML Total Protein 6.8 6.4-8.2 GM/DL Albumin 3.7 3.2-4.5 GM/DL Urine Color YELLOW Urine Clarity SL CLOUDY Urine pH 6.5 5-9 Urine Specific [place] 1.015 L 1.016-1.022 Urine Protein NEGATIVE NEGATIVE Urine Glucose (UA) NEGATIVE NEGATIVE Urine Ketones NEGATIVE NEGATIVE Urine Nitrite NEGATIVE NEGATIVE Urine Bilirubin NEGATIVE NEGATIVE Urine Urobilinogen 0.2 < = 1.0 MG/DL Urine Leukocyte Esterase NEGATIVE NEGATIVE Urine RBC (Auto) NEGATIVE NEGATIVE Urine RBC RARE /HPF Urine WBC RARE /HPF Urine Squamous Epithelial Cells RARE /HPF Urine Crystals NONE /LPF Urine Bacteria TRACE /HPF Urine Casts PRESENT /LPF Urine Hyaline Casts 2-5 H /LPF Urine Mucus MODERATE H /LPF Urine Culture Indicated NO My Orders Orders - CEE ALMONTE MD Lactated Ringers (Lr 1000 Ml Iv Solution (12/19/19 18:25) Lactated Ringers (Lr 1000 Ml Iv Solution (12/19/19 18:21) Ct Angio Head/Neck (12/19/19 18:55) Iohexol Injection (Omnipaque 350 Mg/Ml 1 (12/19/19 19:15) Received Contrast (Hold Metformin- Contr (12/19/19 19:15) Ns (Ivpb) (Sodium Chloride 0.9% Ivpb Bag (12/19/19 19:15) Enoxaparin Injection (Lovenox Injection) (12/19/19 22:00) Medications Given in ED Current Medications Medications Dose Ordered Sig/Keegan Route Start Time Stop Time Status Last Admin Dose Admin Iohexol 75 ml ONCE ONCE IV 12/19/19 19:15 12/19/19 19:17 DC 12/19/19 19:36 75 ML Lactated Ringer's 1,000 ml @ 0 mls/hr Q0M ONCE IV 12/19/19 18:25 12/19/19 18:26 DC 12/19/19 18:24 1,000 MLS/HR Sodium Chloride 100 ml ONCE ONCE IV 12/19/19 19:15 12/19/19 19:17 DC 12/19/19 19:36 100 ML Vital Signs/I&O 12/19/19 18:01 Temp 36.3 Pulse 44 Resp 16 B/P (MAP) 145/96 (112) Pulse Ox 97 Blood Pressure Mean: 112 FSBG Bedside Testing Finger Stick Blood Glucose: 151 Blood Glucose Action Taken: REPORTED TO DR ALMONTE Progress Progress Note : Progress Note Seen and evaluated on arrival. I assisted in moving patient out of the car to the bed. Symptoms improving during initial evaluation. Stroke team activation initiated given symptoms. Rapid CT head evaluation initiated. 1824: CT negative for acute bleed. Symptoms still improving. LR 1 L bolus. Noted bradycardia that goes down to the upper 30s. Monitor patient. We will go ahead and get CT angiogram of the head and neck. 2029: Patient improving. CT angiogram pending. 2204: CT angiogram complete. Patient has symptoms resolved with heart rate in the 50s currently. Unsure of exact etiology of event tonight and may be related to TIA or bradycardia event. Of note, patient did receive significant bad news as his significant other received a bad news diagnosis today and that may be part of the onset of symptoms. He also did not eat much today prior to onset of event. Lovenox 70 mg subcutaneous ordered. I did discuss the case with Dr. Heath who accepts patient for admission, observation status. I also discussed the case with Dr. Molina will see the patient in consult and agrees with Lovenox. Patient has been off anticoagulation secondary to cost. Initial ECG Impression Date: Dec 19, 2019 Initial ECG Impression Time: 18:12 Initial ECG Rate: 45 Initial ECG Rhythm: S.Aman Comment Sinus bradycardia with normal axis. No evidence of ST elevation NE. Slower than previous of 05/09/19. Interpreted by me. Diagnostic Imaging Diagonstic Imaging: CT Plain Films/CT/US/NM/MRI: head Comments [facility] [place], [place] NAME: FE CONNOR [facility] REC#: [id number] PT STATUS: REG ER : 1955 PHYSICIAN: FARRAH WESTBROOK ADMIT DATE: 12/19/19/ER Signed Date of Exam:12/19/19 CT HEAD WO-R/O STROKE PROCEDURE: CT head wo r/o stroke. TECHNIQUE: Multiple contiguous axial images were obtained through the brain without the use of intravenous contrast. Auto Exposure Controls were utilized during the CT exam to meet ALARA standards for radiation dose reduction. INDICATION: Syncope, altered mental status The ventricles are normal in size, shape and position. There are no masses or hemorrhages. There are no extra-axial fluid collections. IMPRESSION: Negative CT head. There is no CT evidence for an acute infarct. Dictated by: Dictated on workstation # [id number] Dict: 12/19/191823 Trans: 12/19/191824 [id number] Interpreted by: CEE MEJÍA MD Electronically signed by: CEE MEJÍA MD 12/19/191824 Diagonstic Imaging: Xray Plain Films/CT/US/NM/MRI: chest Comments [facility] [place], [place] NAME: FE CONNOR [facility] REC#: [id number] PT STATUS: REG ER : 1955 PHYSICIAN: FARRAH WESTBROOK ADMIT DATE: 12/19/19/ER Draft Date of Exam:12/19/19 CHEST 1 VIEW, AP/PA ONLY INDICATION: Stroke Frontal chest obtained at 0635 p.m. and is compared to 05/09/2019. Heart is borderline in size. There is mild central vascular congestion with chronic appearing increased interstitial markings. There is question of minimal infiltrate or atelectasis in the right base, for which follow-up is recommended. There is no pneumothorax or pleural fluid. IMPRESSION: Cardiomegaly with central vascular congestion with chronic appearing increased interstitial markings. There is questionable minimal infiltrate or atelectasis in the right base, for which follow-up is recommended. Dictated on workstation # [id number] Dict: 12/19/19 1843 Trans: 12/19/19 1846 [facility] [id number] Interpreted by: SERGIO TREVINO MD Electronically signed by: Carolyn Imaging: CT Plain Films/CT/US/NM/MRI: head, other Comments [facility] [place] [place] [place] NAME: FE CONNOR [facility] REC#: [id number] PT STATUS: REG ER : 1955 PHYSICIAN: CEE ALMONTE MD ADMIT DATE: 12/19/19/ER Signed Date of Exam:12/19/19 CT ANGIO HEAD/NECK INDICATION: Syncope and confusion and blurred vision TECHNIQUE: Contiguous noncontrast images were obtained from the skull base through the vertex. After intravenous contrast administration, helical CT angiography of the neck was performed. Source data was reformatted into 3D MIP projections. Delayed post contrast acquisition was also obtained. Auto Exposure Controls were utilized during the CT exam to meet ALARA standards for radiation dose reduction. Comparison made to noncontrast CT earlier today. CTA neck findings: Underlying COPD changes are noted. The thoracic aortic arch is patent and normal in caliber and appearance. The great vessel origins are patent and without stenosis. The common carotid arteries, carotid bifurcations, internal carotid arteries, and external carotid arteries are patent and without stenosis or dissection. There is some tortuosity of the distal internal carotid artery on the left side. The vertebral arteries on both sides appear patent with the left being dominant. There is no significant vertebral artery stenosis or dissection. Diffuse degenerative findings of cervical spine are incidentally noted. CTA head findings: The distal vertebral arteries are patent with the right vertebral artery terminating in the posterior inferior cerebellar artery, this is a normal variant. The basilar artery and posterior cerebral arteries appear patent and unremarkable. The distal internal carotid arteries, anterior cerebral arteries, and middle cerebral arteries and their branches appear unremarkable. There is no major vessel stenosis or occlusion or aneurysmal disease. There is patency of the dural venous sinuses demonstrated. IMPRESSION: Essentially unremarkable CTA of the head and neck. No evidence of significant stenosis or occlusion or aneurysmal disease. Dictated by: Dictated on workstation # [id number] Dict: 12/19/192123 Trans: 12/19/192209 [facility] [id number] Interpreted by: SERGIO TREVINO MD Electronically signed by: SERGIO TREVINO MD 12/19/192209 Departure Communication (Admissions) Time/Spoke to Admitting Phy: 21:55 Time/Spoke to Consulting Phy: 22:02 Impression Primary Impression: TIA (transient ischemic attack) Additional Impression: Bradycardia Disposition: 09 ADMITTED INPATIENT Condition: Stable Admissions Decision to Admit Reason: Admit from ER (General) Decision to Admit/Date: Dec 19, 2019 Time/Decision to Admit Time: 21:52 Departure-Patient Inst. Referrals: GERHARD SIU DO (PCP) Primary Care Physician JORGE JACKSON (Family) Primary Care Physician CEE ALMONTE MD Dec 19, 2019 18:25
[2019-12-19 18:30] LABS: FIBRIN DEGRADATION PRODUCTS 2.2 UG/ML (0.00-0.49); PROTHROMBIN TIME PATIENT 13.7 SEC (12.2-14.7)
[2019-12-19 18:33] LABS: ALANINE AMINOTRANSFERASE 12 U/L (0-55); ALBUMIN 3.7 GM/DL (3.2-4.5); ALKALINE PHOSPHATASE 79 U/L (40-136); BILIRUBIN,TOTAL 0.3 MG/DL (0.1-1.0); BUN/CREATININE RATIO 24; CARBON DIOXIDE 23 MMOL/L (21-32); CHLORIDE 106 MMOL/L (98-107); CREATININE SERUM 1.44 MG/DL (0.60-1.30); GFR ESTIMATED 49; GLUCOSE 146 MG/DL (70-105); SODIUM 138 MMOL/L (135-145); TOTAL PROTEIN 6.8 GM/DL (6.4-8.2)
--- NOTE | 2019-12-19 18:47 | Diagnostic Imaging Report ---
INDICATION: Stroke Frontal chest obtained at 0635 p.m. and is compared to 05/09/2019. Heart is borderline in size. There is mild central vascular congestion with chronic appearing increased interstitial markings. There is question of minimal infiltrate or atelectasis in the right base, for which follow-up is recommended. There is no pneumothorax or pleural fluid. IMPRESSION: Cardiomegaly with central vascular congestion with chronic appearing increased interstitial markings. There is questionable minimal infiltrate or atelectasis in the right base, for which follow-up is recommended. Dictated by: Dictated on workstation # [id number]
[2019-12-19] MEDS ORDERED: NS 100 ML (IVPB) BAG IV ONE (19:15)
[2019-12-19] MEDS ORDERED: IOHEXOL 350 MG/ML 100 ML (OMNIPAQUE 350) VIAL IV ONE (19:15)
[2019-12-19] MEDS ORDERED: HOLD METFORMIN - RECEIVED CONTRAST 20 ML VIAL IV SCH (19:15)
[2019-12-19 19:53] LABS: BILIRUBIN,URINE NEGATIVE (NEGATIVE); CLARITY,URINE SL CLOUDY; COLOR,URINE YELLOW; GLUCOSE, URINE (UA) NEGATIVE (NEGATIVE); KETONES,URINE NEGATIVE (NEGATIVE); LEUKOCYTE ESTERASE ,URINE NEGATIVE (NEGATIVE); NITRITE,URINE NEGATIVE (NEGATIVE); PH,URINE 6.5 (5-9); PROTEIN,URINE NEGATIVE (NEGATIVE)
[2019-12-19 19:59] LABS: BACTERIA,URINE TRACE /HPF; RBC,URINE RARE /HPF; SQUAMOUS EPITHELIAL CELL,UR RARE /HPF; WBC,URINE RARE /HPF
--- NOTE | 2019-12-19 21:38 | Diagnostic Imaging Report ---
INDICATION: Syncope and confusion and blurred vision TECHNIQUE: Contiguous noncontrast images were obtained from the skull base through the vertex. After intravenous contrast administration, helical CT angiography of the neck was performed. Source data was reformatted into 3D MIP projections. Delayed post contrast acquisition was also obtained. Auto Exposure Controls were utilized during the CT exam to meet ALARA standards for radiation dose reduction. Comparison made to noncontrast CT earlier today. CTA neck findings: Underlying COPD changes are noted. The thoracic aortic arch is patent and normal in caliber and appearance. The great vessel origins are patent and without stenosis. The common carotid arteries, carotid bifurcations, internal carotid arteries, and external carotid arteries are patent and without stenosis or dissection. There is some tortuosity of the distal internal carotid artery on the left side. The vertebral arteries on both sides appear patent with the left being dominant. There is no significant vertebral artery stenosis or dissection. Diffuse degenerative findings of cervical spine are incidentally noted. CTA head findings: The distal vertebral arteries are patent with the right vertebral artery terminating in the posterior inferior cerebellar artery, this is a normal variant. The basilar artery and posterior cerebral arteries appear patent and unremarkable. The distal internal carotid arteries, anterior cerebral arteries, and middle cerebral arteries and their branches appear unremarkable. There is no major vessel stenosis or occlusion or aneurysmal disease. There is patency of the dural venous sinuses demonstrated. IMPRESSION: Essentially unremarkable CTA of the head and neck. No evidence of significant stenosis or occlusion or aneurysmal disease. Dictated by: Dictated on workstation # [id number]
[2019-12-19] MEDS ORDERED: ENOXAPARIN 80 MG/0.8 ML (LOVENOX) SYR SC ONE (22:00)
[2019-12-19 23:46] VITALS: BP 122/65
--- NOTE | 2019-12-20 00:04 | NUR ---
FE CONNOR admitted to room 432-1, with an admitting diagnosis of TIA and bradycardia, on 12/19/19 from ED via wheelchair, accompanied by ER staff.FE CONNOR introduced to surroundings, call light, bed controls, phone, TV, temperature control, lights, meal times, smoking policy, visitor policy, side rail policy, bathrooms and showers. Patient Rights given to patient in the handbook. FE CONNOR verbalizes understanding that [facility] is not responsible for the loss or damage to any personal effects or valuables that are kept in the patients posession during their hospitalization.
[2019-12-20 00:35] VITALS: BP 122/65
[2019-12-20] MEDS ORDERED: LACTATED RINGERS 1,000 ML IV ONE (00:40)
[2019-12-20] MEDS: LACTATED RINGERS 1,000 ML IV SCH ×2 (01:13→14:00)
[2019-12-20] MEDS ORDERED: ONDANSETRON 4 MG/2 ML (SDV) Z0FRAN IV PRN (01:15)
[2019-12-20 03:44] VITALS: BP 134/65
[2019-12-20 05:04] LABS: BASOPHILS # (AUTO) 0.1 10^3/uL (0.0-0.1); BASOPHILS % (AUTO) 1 % (0-10); EOSINOPHILS # (AUTO) 0.2 10^3/uL (0.0-0.3); EOSINOPHILS % (AUTO) 3 % (0-10); HEMATOCRIT 34 % (40-54); HEMOGLOBIN 11.6 G/DL (13.3-17.7); LYMPHOCYTES # (AUTO) 1.9 X 10^3 (1.0-4.0); LYMPHOCYTES % (AUTO) 35 % (12-44); MEAN CORPUSCULAR HEMOGLOBIN 28 PG (25-34); MEAN CORPUSCULAR HGB CONC 34 G/DL (32-36); MEAN CORPUSCULAR VOLUME 84 FL (80-99); MEAN PLATELET VOLUME 8.4 FL (7.4-10.4); MONOCYTES # (AUTO) 0.6 X 10^3 (0.0-1.0); MONOCYTES % (AUTO) 11 % (0-12); NEUTROPHILS # (AUTO) 2.8 X 10^3 (1.8-7.8); NEUTROPHILS % (AUTO) 51 % (42-75); PLATELET COUNT 258 10^3/uL (130-400); RED CELL DISTRIBUTION WIDTH 13.9 % (10.0-14.5); WHITE BLOOD COUNT 5.5 10^3/uL (4.3-11.0)
[2019-12-20 05:25] LABS: ALBUMIN 3.1 GM/DL (3.2-4.5); BILIRUBIN,TOTAL 0.2 MG/DL (0.1-1.0); CALCIUM 8.4 MG/DL (8.5-10.1); CREATININE SERUM 1.23 MG/DL (0.60-1.30); POTASSIUM 4.1 MMOL/L (3.6-5.0); TOTAL PROTEIN 5.6 GM/DL (6.4-8.2)
[2019-12-20] MEDS ORDERED: FLU QUADRIvalent (5+ YOA) 2019-2020 (AFLURIA) 0.5 ML IM ONE (07:30)
[2019-12-20 08:00] VITALS: BP 155/84
[2019-12-20 12:00] VITALS: BP 140/62
--- NOTE | 2019-12-20 12:17 | Consultation-Cardiology ---
HPI-Cardiology Cardiology Consultation Date of Consultation 12/20/19 Date of Admission Time Seen by Provider: 12:12 Indication: Syncope, bradycardia HPI Patient is a 64 y/o male with history of CAD, PAF, HTN. Presented to the ER yesterday afternoon with complaints of syncope. Patient reports he was sitting at the kitchen table when he had episode of dizziness. Reports he stood up to go get help when he had syncopal episode. Denies any chest pain or dyspnea. Denies any previous syncope. Reports he was under significant amount of stress yesterday as he had just came back from his girlfriends Dr. tirado where she was diagnosed with stage IV liver CA. Patient was noted to be bradycardic upon arrival to ER. Remainder of w/u in ER was negative. Home Medications & Allergies Allergies: Coded Allergies: No Known Drug Allergies (Unverified , 08/20/17) Home Medication List Reviewed: Yes [id number]-[id number] Hx Patient Social History Marital Status: domestic partnership Alcohol Use: Denies Use Recreational Drug Use: No Drug of Choice: MARIJUANA Smoking Status: Former Smoker Type Used: Cigarettes 2nd Hand Smoke Exposure: Yes Recent Foreign Travel: No Recent Infectious Disease Expo: No Recent Hopitalizations: No Immunizations Up To Date Tetanus Booster (TDap): Unknown Date of Pneumonia Vaccine: Sep 09, 2018 Date of Influenza Vaccine: Sep 09, 2018 Past Medical History PAF, CAD, HTN, HLP Family Medical History Significant Family History: Diabetes, Hypertension Family History: Cardiovascular disease Cataracts Diabetes mellitus Glaucoma Hypertension Myocardial infarction Respiratory disorder Thyroid disease Visual disorder No Family History of: AIDS Abdominal aortic aneurysm Terry's disease Alcoholism Alzheimer's disease Aphasia Arthritis Asthma Cancer of mouth Colon cancer Completed stroke Congenital disease Congenital heart disease Coronary thrombosis Cystic fibrosis Deafness or hearing loss Dementia Drug abuse Dysphasia Fibrocystic disease of breast Gastroenteritis Headache disorder Hypercholesterolemia Infertility Kidney disease Neoplasm Not obtainable due to adoption Osteoporosis Parkinson's disease Prostate cancer Psychosocial problem Seizure disorder Severe allergy Tuberculosis Review of Systems-General Review of Systems Constitutional: see HPI; No chills, No fever, No malaise, No weakness EENTM: see HPI; No blurred vision, No double vision, No vision loss Respiratory: No cough, No short of breath Cardiovascular: see HPI; No chest pain, No edema; Hx of Intervention; No palpitations; syncope, vascular heart diseas Gastrointestinal: no symptoms reported, see HPI; No abdominal pain, No constipation, No nausea, No vomiting Genitourinary: no symptoms reported, see HPI Musculoskeletal: No back pain; muscle weakness Skin: no symptoms reported; No lesions Psychiatric/Neurological: See HPI, Anxiety All Other Systems Reviewed Negative Unless Noted: Yes Reviewed Test Results Reviewed Test Results Lab Laboratory Tests 12/19/19 18:10: White Blood Count 8.6, Red Blood Count 4.72, Hemoglobin 13.5, Hematocrit 40, Mean Corpuscular Volume 84, Mean Corpuscular Hemoglobin 29, Mean Corpuscular Hemoglobin Concent 34, Red Cell Distribution Width 14.0, Platelet Count 330, Mean Platelet Volume 8.3, Neutrophils (%) (Auto) 39L, Lymphocytes (%) (Auto) 48H , Monocytes (%) (Auto) 9, Eosinophils (%) (Auto) 3, Basophils (%) (Auto) 1, Neutrophils # (Auto) 3.4, Lymphocytes # (Auto) 4.2H, Monocytes # (Auto) 0.8, Eosinophils # (Auto) 0.2, Basophils # (Auto) 0.1, Prothrombin Time 13.7, INR Comment 1.0, Activated Partial Thromboplast Time 26, D-Dimer 2.20H, Sodium Level 138, Potassium Level 4.0, Chloride Level 106, Carbon Dioxide Level 23, Anion Gap 9, Blood Urea Nitrogen 35H, Creatinine 1.44H, Estimat Glomerular Filtration Rate 49, BUN/Creatinine Ratio 24, Glucose Level 146H, Glucometer 151H, Calcium Level 9.0, Corrected Calcium 9.2, Total Bilirubin 0.3, Aspartate Amino Transf (AST/SGOT) 12, Alanine Aminotransferase (ALT/SGPT) 12, Alkaline Phosphatase 79, Troponin I < 0.028, Total Protein 6.8, Albumin 3.7 12/19/19 19:47: Urine Color YELLOW, Urine Clarity SL CLOUDY, Urine pH 6.5, Urine Specific [place] 1.015L, Urine Protein NEGATIVE, Urine Glucose (UA) NEGATIVE, Urine Ketones NEGATIVE, Urine Nitrite NEGATIVE, Urine Bilirubin NEGATIVE, Urine Urobilinogen 0.2, Urine Leukocyte Esterase NEGATIVE, Urine RBC (Auto) NEGATIVE, Urine RBC RARE, Urine WBC RARE, Urine Squamous Epithelial Cells RARE, Urine Crystals NONE, Urine Bacteria TRACE, Urine Casts PRESENT, Urine Hyaline Casts 2- 5H, Urine Mucus MODERATEH, Urine Culture Indicated NO 12/20/19 04:50: White Blood Count 5.5, Red Blood Count 4.11L, Hemoglobin 11.6L, Hematocrit 34L, Mean Corpuscular Volume 84, Mean Corpuscular Hemoglobin 28, Mean Corpuscular Hemoglobin Concent 34, Red Cell Distribution Width 13.9, Platelet Count 258, Mean Platelet Volume 8.4, Neutrophils (%) (Auto) 51, Lymphocytes (%) (Auto) 35, Monocytes (%) (Auto) 11, Eosinophils (%) (Auto) 3, Basophils (%) (Auto) 1, Neutrophils # (Auto) 2.8, Lymphocytes # (Auto) 1.9, Monocytes # (Auto) 0.6, Eosinophils # (Auto) 0.2, Basophils # (Auto) 0.1, Sodium Level 141, Potassium Level 4.1, Chloride Level 110H, Carbon Dioxide Level 21, Anion Gap 10, Blood Urea Nitrogen 37H, Creatinine 1.23, Estimat Glomerular Filtration Rate 59, BUN/Creatinine Ratio 30, Glucose Level 82, Calcium Level 8.4L, Corrected Calcium 9.1, Total Bilirubin 0.2, Aspartate Amino Transf (AST/SGOT) 9, Alanine Aminotran sferase (ALT/SGPT) 8, Alkaline Phosphatase 83, Total Protein 5.6L, Albumin 3.1L, Triglycerides Level 210H, Cholesterol Level 206H, LDL Cholesterol Direct 160H, VLDL Cholesterol 42H, HDL Cholesterol 27L ECG Impression ECG Initial ECG Rhythm: S.Aman Physical Exam Physical Exam Vital Signs Vital Signs - First Documented 12/19/19 12/19/19 18:01 23:14 Temp 36.3 Pulse 44 Resp 16 B/P (MAP) 145/96 (112) Pulse Ox 97 O2 Delivery Room Air Capillary Refill : Less Than 3 SecondsLess Than 3 Seconds Height, Weight, BMI Height: 6'1.00" Weight: 160lbs. 3.0oz. 72.919209dv; 22.52 BMI Method:Stated General Appearance: No Apparent Distress, WD/WN, Anxious HEENT: PERRL/EOMI, Normal ENT Inspection Neck: Full Range of Motion, Normal Inspection, Non Tender, Supple Respiratory: Chest Non Tender, Lungs Clear Cardiovascular: Regular Rate, Rhythm, No Edema, No Gallop, No JVD, No Murmur, Normal Peripheral Pulses Gastrointestinal: Non Tender, Soft Rectal: Deferred Back: No CVA Tenderness Extremity: Non Tender, No Calf Tenderness, No Pedal Edema Neurologic/Psychiatric: Alert, Oriented x3, instrument technologist II-XII Norm as Tested A/P-Cardiology Admission Diagnosis Syncope Bradycardia CAD PAF Assessment/Plan Syncope- unknown etiology, likely secondary to bradycardia. Work up done in ER was negative. Patient feeling better, denies any further episodes of dizziness /lightheadedness or syncope. 2D Echo done earlier today within normal limits. Bradycardia, improved after holding BP medications. I will stop metoprolol and continue on Cardizem and monitor tolerance and response Coronary artery disease, non-ST elevation myocardial infarction, cardiac catheter done in August 30, 2015 revealed total occlusion of RCA, 3 stents placed using 2.5 x 38, 2.75 x 28, 3.0 x 20 mm Promus Premier stents. Patient continues complain of chest pain that night and another cardiac catheterization was carried out on August 31, 2015 revealing 50 percent ostial left main, otherwise mild coronary artery disease with patent stents to the RCA. Echocardiogram showed ejection fraction 45-50 percent, stress test was done in October 2017 showing no significant ischemia with diaphragmatic attenuation with ejection fraction 52 percent, last cardiac catheterization done on May 06, [address] Hoffman reported as 90 percent ostial and proximal segment of the first diagonal artery with balloon angioplasty then deployment of Alpine 2.2528 mm stent, 70 percent mid LAD stenosis successful balloon angioplasty and reducing the lesion to 50 percent, patent stents in the proximal and mid and distal right coronary artery, normal left ventricular size and function. Doing well at this time. Continue to monitor Paroxysmal atrial fibrillation, hospitalized in May 2019 for atrial flutter ablation and started on Eliquis. Currently maintained on Eliquis and Plavix due to the recent stent. Continue to monitor History of peptic ulcer disease Hyperlipidemia, continue to monitor as outpatient History of recurrent pneumonia History of [place] spotted fever, seen for evaluation with infectious disease, diagnosed with rheumatoid arthritis and started to see Dr Parish Vickers in [facility], patient says that he has quit smoking, encouraged to continue with smoking cessation Hypertension-continue to monitor blood pressure. History of paroxysmal SVT. Continue to monitor. Mild bilateral carotid stenosis, ultrasound done in November 2018. Continue to monitor Thank you for allowing us to participate in the management of Mr. Begum. This is Lisa Lopez PA-C, as a scribe for Dr. Molina. Patient was seen and evaluated with Lisa, examination performed, management plan was discussed, agree with the current scribed note, I made few changes to the note using Italic font 64-year-old gentleman was admitted for change in mental status, has been under increased stress recently On my evaluation was feeling well, no chest pain or shortness of breath, no palpitation, heart rate is better We discussed compliance with medication, I will discontinue metoprolol and continue on diltiazem and monitor tolerance and response Received IV fluid. Restarted oral anticoagulation Clinical Quality Measures DVT/VTE Risk/Contraindication: Risk Factor Score Per Nursin RFS Level Per Nursing on Admit: 4+=Very High Stroke: Date of last known well: Dec 19, 2019 Time of last known well: 17:15 Symptoms onset unknown: No LISA SUAREZ Dec 20, 2019 12:17 DANNY MOLINA MD Dec 20, 2019 16:22
--- NOTE | 2019-12-20 13:14 | History & Physical ---
TIMOTHY WAGNER MED STUDENT 12/20/19 1314: HPI History of Present Illness: CC:"Got hot, clammy, dizzy & saw spots" Mr. Begum is a 64yo M who was admitted following a fall yesterday afternoon. He was at home and began feeling very hot prior to losing consciousness/falling. He has had a "cold chill" occasionally over the last 2 weeks but is uncertain if it is related to his fall yesterday. He thinks that hearing news of his girlfriend's terminal cancer yesterday could be a stressor that may have caused this. He denied any chest pain associated with this, but says he may have noticed some palpitations. Interval Update: This morning, Mr. Begum feels back to his normal self. He denied any weakness, acute changes with vision or chest pain. He does not feel like he has had any symptoms like he normally experiences with his a-fib. He has been up and walking without problems and was able to eat breakfast. Source: patient Exam Limitations: no limitations Date seen by provider: Dec 20, 2019 Time Seen by Provider: 08:45 Attending Physician Jamal Heath MD PCP Crystal Culp DO Consult Date of Admission Dec 19, 2019 at 22:05 Home Medications Home Medications Reviewed patient Home Medication Reconciliation performed by pharmacy medication reconciliations metallurgy laboratory technician and/or nursing. Patients Allergies have been reviewed. Allergies Coded Allergies: No Known Drug Allergies (Unverified , 08/20/17) [id number]-Qtfblj Hx Patient Social History Marrital Status: domestic partnership Alcohol Use: Denies Use Recreational Drug Use: No Drug of Choice: MARIJUANA Smoking Status: Current Everyday Smoker (Reports current smoking; expressed desire to quit) Cigaretts per day: 10 Type Used: Cigarettes 2nd Hand Smoke Exposure: Yes Recent Foreign Travel: No Contact w/other who traveled: No Recent Hopitalizations: No Recent Infectious Disease Expo: No Immunizations Up To Date Tetanus Booster (TDap): Unknown Date of Pneumonia Vaccine: Sep 09, 2018 Date of Influenza Vaccine: Sep 09, 2018 Past Medical History PMHx: CAD with stent placement x 3 NSTEMI - 2015 HTN Hyperlipidemia Tobacco Abuse GERD Osteoarthritits Neuropathy Chronic Gastric Ulcer COPD with Panlobular Emphysema Chronic Afib Rheumatoid Arthritis, Right Hand Lely Spotted Fever - 2017 Past Surgical History: Heart Cath x2 Family Medical History Significant Family History: Diabetes, Hypertension Family History: Cardiovascular disease Cataracts Diabetes mellitus Glaucoma Hypertension Myocardial infarction Respiratory disorder Thyroid disease Visual disorder No Family History of: AIDS Abdominal aortic aneurysm [place]'s disease Alcoholism Alzheimer's disease Aphasia Arthritis Asthma Cancer of mouth Colon cancer Completed stroke Congenital disease Congenital heart disease Coronary thrombosis Cystic fibrosis Deafness or hearing loss Dementia Drug abuse Dysphasia Fibrocystic disease of breast Gastroenteritis Headache disorder Hypercholesterolemia Infertility Kidney disease Neoplasm Not obtainable due to adoption Osteoporosis Parkinson's disease Prostate cancer Psychosocial problem Seizure disorder Severe allergy Tuberculosis Review of Systems (CHC) Constitutional: No chills, No diaphoresis, No fever, No weakness EENTM: blurred vision (Has had "foggy vision" for the last few months; wonders if it is cataracts); No hearing loss Respiratory: No cough, No short of breath Cardiovascular: No chest pain; palpitations (He is unsure if he's having these or not) Gastrointestinal: No constipation, No nausea, No vomiting Musculoskeletal: No no symptoms reported, No muscle weakness Skin: dryness Psychiatric/Neurological: Other (Recently found out girlfriend has terminal cancer; associated sadness) Physical Exam-([facility]) Physical Exam Vital Signs VS - Last 72 Hours, by Label 12/19/19 12/19/19 12/19/19 12/19/19 18:01 23:14 23:29 23:46 Temp 36.3 36.3 36.7 Pulse 44 61 49 Resp 16 16 18 B/P (MAP) 145/96 (112) 117/68 (112) 122/65 Pulse Ox 97 97 96 O2 Delivery Room Air Room Air Room Air 12/20/19 12/20/19 12/20/19 12/20/19 00:35 00:45 03:44 07:00 Temp 36.7 37.9 Pulse 49 53 54 52 Resp 18 18 B/P (MAP) 122/65 (84) 134/65 (88) Pulse Ox 96 96 O2 Delivery Room Air Room Air 12/20/19 12/20/19 08:00 12:00 Temp 37.2 36.8 Pulse 89 72 Resp 18 18 B/P (MAP) 155/84 (107) 140/62 (88) Pulse Ox 93 94 O2 Delivery Room Air Room Air Capillary Refill : Less Than 3 SecondsLess Than 3 Seconds General Appearance: WD/WN, no apparent distress Eyes: Bilateral Eye PERRL HEENT: PERRL/EOMI Neck: full range of motion; No carotid bruit Respiratory: lungs clear, normal breath sounds Cardiovascular: bradycardia Gastrointestinal: normal bowel sounds, non tender Rectal: deferred Extremities: normal range of motion, non-tender, no calf tenderness; No swelling Neurologic/Psychiatric: dragger II-XII nml as tested, no motor/sensory deficits, alert, oriented x 3; No aphasia, No facial droop, No motor weakness Skin: warm/dry Assessment/Plan Assessment/Plan Admission Dx 64yo M with PMH of CAD, paroxysmal a-fib, tobacco use, stenting with syncopal episode yesterday. Feeling better this morning and denies any complaints. #Syncope - Worked up for stroke: NIHSS score of 1 upon arrival for mild/moderate dysarthria; resolved during work up yesterday; asymptomatic this morning & no focal findings on neuro exam CT head negative for acute bleed; head CTA not remarkable; - Likely secondary to stress and/or bradycardia; cardiology consulted and cardiology discontinued lopressor #Bradycardia #Hx of CAD s/p stent placement x3 #Hx of Paroxysmal Atrial Fibrillation - Patient reports taking apixaban, aspirin 81mg, atorvastatin, clopidogrel, diltiazem, metoprolol tartrate - Cardiology discontinued metoprolol and will continue to monitor # R lung infiltrate/atelectasis - CXR: There is questionable minimal infiltrate or atelectasis in the right base, for which follow-up is recommended. - Patient denies difficulty breathing; shows normal effort of breathing on exam - Can f/u outpatient; d/t smoking history and age, patient could receive low dose CT for lung cancer screening #Normocytic anemia - Hgb of 11.6 on morning labs; was 13.5 upon admission - Will continue to monitor/workup as outpatient #Current Smoker - Smoking ~1/2ppd - Interested in quitting, but did not like Chantix when he used it previously (bad dreams, felt desire to smoke more) - Will set up with smoking cessation - If not yet screened for AAA, could do one time screening as outpatient #Foggy vision - Patient reports vision has become foggy, more so over the last few months - Recommend follow up with optometry Clinical Quality Measures DVT/VTE Risk/Contraindication: Risk Factor Score Per Nursin RFS Level Per Nursing on Admit: 4+=Very High Stroke: Date of last known well: Dec 19, 2019 Time of last known well: 17:15 Symptoms onset unknown: No JAMAL HEATH MD 12/20/19 2007: HPI History of Present Illness: Agree with Above HPI, reviewed with patient Source: patient Exam Limitations: no limitations Home Medications Allergies Coded Allergies: No Known Drug Allergies (Unverified , 08/20/17) [id number]-Nzfznz Hx Patient Social History Living Status: Lives with MERCEDES and her daughter Smoking Status: Current Everyday Smoker (Reports current smoking; expressed desire to quit) Past Medical History COPD Paroxysmal Atrial Fibrillation CAD HTN HLD Tobacco Use Family Medical History Family History: Cardiovascular disease Cataracts Diabetes mellitus Glaucoma Hypertension Myocardial infarction Respiratory disorder Thyroid disease Visual disorder No Family History of: AIDS Abdominal aortic aneurysm Terry's disease Alcoholism Alzheimer's disease Aphasia Arthritis Asthma Cancer of mouth Colon cancer Completed stroke Congenital disease Congenital heart disease Coronary thrombosis Cystic fibrosis Deafness or hearing loss Dementia Drug abuse Dysphasia Fibrocystic disease of breast Gastroenteritis Headache disorder Hypercholesterolemia Infertility Kidney disease Neoplasm Not obtainable due to adoption Osteoporosis Parkinson's disease Prostate cancer Psychosocial problem Seizure disorder Severe allergy Tuberculosis Review of Systems (CHC) Constitutional: no symptoms reported; No chills, No fever EENTM: no symptoms reported; No mouth pain, No nose congestion, No throat pain Respiratory: no symptoms reported; No cough, No dyspnea on exertion, No short of breath Cardiovascular: No chest pain, No edema; palpitations Gastrointestinal: no symptoms reported; No abdominal pain, No constipation, No nausea, No vomiting Genitourinary: no symptoms reported; No dysuria, No frequency, No hematuria Musculoskeletal: no symptoms reported; No back pain, No joint pain, No muscle pain Skin: dryness; No lesions, No rash Psychiatric/Neurological: Denies Headache, Denies Numbness; Weakness, Other (Recently found out girlfriend has terminal cancer; associated sadness) Reviewed Test Results Reviewed Test Results Lab Laboratory Tests Test 12/20/19 04:50 Range/Units White Blood Count 5.5 4.3-11.0 10^3/uL Red Blood Count 4.11 L 4.35-5.85 10^6/uL Hemoglobin 11.6 L 13.3-17.7 G/DL Hematocrit 34 L 40-54 % Mean Corpuscular Volume 84 80-99 FL Mean Corpuscular Hemoglobin 28 25-34 PG Mean Corpuscular Hemoglobin Concent 34 32-36 G/DL Red Cell Distribution Width 13.9 10.0-14.5 % Platelet Count 258 130-400 10^3/uL Mean Platelet Volume 8.4 7.4-10.4 FL Neutrophils (%) (Auto) 51 42-75 % Lymphocytes (%) (Auto) 35 12-44 % Monocytes (%) (Auto) 11 0-12 % Eosinophils (%) (Auto) 3 0-10 % Basophils (%) (Auto) 1 0-10 % Neutrophils # (Auto) 2.8 1.8-7.8 X 10^3 Lymphocytes # (Auto) 1.9 1.0-4.0 X 10^3 Monocytes # (Auto) 0.6 0.0-1.0 X 10^3 Eosinophils # (Auto) 0.2 0.0-0.3 10^3/uL Basophils # (Auto) 0.1 0.0-0.1 10^3/uL Sodium Level 141 135-145 MMOL/L Potassium Level 4.1 3.6-5.0 MMOL/L Chloride Level 110 H 98-107 MMOL/L Carbon Dioxide Level 21 21-32 MMOL/L Anion Gap 10 5-14 MMOL/L Blood Urea Nitrogen 37 H 7-18 MG/DL Creatinine 1.23 0.60-1.30 MG/DL Estimat Glomerular Filtration Rate 59 BUN/Creatinine Ratio 30 Glucose Level 82 70-105 MG/DL Calcium Level 8.4 L 8.5-10.1 MG/DL Corrected Calcium 9.1 8.5-10.1 MG/DL Total Bilirubin 0.2 0.1-1.0 MG/DL Aspartate Amino Transf (AST/SGOT) 9 5-34 U/L Alanine Aminotransferase (ALT/SGPT) 8 0-55 U/L Alkaline Phosphatase 83 40-136 U/L Total Protein 5.6 L 6.4-8.2 GM/DL Albumin 3.1 L 3.2-4.5 GM/DL Triglycerides Level 210 H <150 MG/DL Cholesterol Level 206 H < 200 MG/DL LDL Cholesterol Direct 160 H 1-129 MG/DL VLDL Cholesterol 42 H 5-40 MG/DL HDL Cholesterol 27 L 40-60 MG/DL Physical Exam-([facility]) Physical Exam General Appearance: WD/WN, no apparent distress HEENT: PERRL/EOMI Neck: full range of motion, supple, normal inspection; No carotid bruit Respiratory: chest non-tender, lungs clear, normal breath sounds, no respiratory distress, no accessory muscle use Cardiovascular: normal peripheral pulses, no murmur, bradycardia (on admission) Gastrointestinal: normal bowel sounds, non tender, soft, no organomegaly Back: normal inspection, no CVA tenderness Extremities: normal range of motion, non-tender, no pedal edema, no calf tend erness, normal capillary refill Neurologic/Psychiatric: dragger II-XII nml as tested, no motor/sensory deficits, alert, oriented x 3; No aphasia, No facial droop, No motor weakness Skin: normal color, warm/dry Lymphatic: no adenopathy Assessment/Plan Assessment/Plan Admission Status: Observation (1) Altered mental status Status: Acute Assessment & Plan: - Patient seems to be at baseline this AM, will continue to monitor Qualifiers: Qualified Codes: R41.82 - Altered mental status, unspecified (2) Syncope Status: Acute Assessment & Plan: - Cardiology consulted and appreciate recommendations Qualifiers: Qualified Codes: R55 - Syncope and collapse (3) Hypertension Status: Chronic Assessment & Plan: - Restart Cardizem, holding metoprolol due to bradycardia on admission Qualifiers: Qualified Codes: I10 - Essential (primary) hypertension (4) COPD (chronic obstructive pulmonary disease) Status: Chronic Assessment & Plan: - Will need repeat CXR or Low dose CT scan as outpatient Qualifiers: Qualified Codes: J44.9 - Chronic obstructive pulmonary disease, unspecified (5) Hyperlipidemia Status: Chronic Qualifiers: Qualified Codes: E78.2 - Mixed hyperlipidemia (6) Bradycardia Status: Acute Assessment & Plan: - Cardiology consulted, holding metoprolol (7) Coronary artery disease Status: Chronic Qualifiers: Qualified Codes: I25.10 - Atherosclerotic heart disease of [place] coronary artery without angina pectoris (8) Atrial fibrillation Status: Chronic Qualifiers: Qualified Codes: I48.0 - Paroxysmal atrial fibrillation (9) DVT prophylaxis Status: Acute Assessment & Plan: - Lovenox Supervisory-Addendum Brief Verification & Attestation Participated in pt care: history Personally performed: exam Care discussed with: Medical Student Procedures: n/a Verification and Attestation of Medical Student E/M Service A medical student performed and documented this service in my presence. I reviewed and verified all information documented by the medical student and made modifications to such information, when appropriate. I personally performed the physical exam and medical decision making. Jamal Heath, Dec 20, 2019,20:09 TIMOTHY WAGNER MED STUDENT Dec 20, 2019 13:14 JAMAL HEATH MD Dec 20, 2019 20:07
[2019-12-20] MEDS ORDERED: METO-333 PO (14:48)
[2019-12-20] MEDS ORDERED: DILT360C30 PO (14:48)
[2019-12-20] MEDS ORDERED: ASPI-999 PO (14:48)
[2019-12-20] MEDS ORDERED: FISH1CAP15 PO (14:59)
--- NOTE | 2019-12-20 14:59 | NUR ---
SPOKE WITH PT (HE HAD 3 MED BOTTLES WITH HIM) WELL GETTING A MED LIST FROM [facility] AND [facility] (I PUT THEM WITH HIS CHART) TO COMPLETE THE MED REC. PT UNSURE OF MEDICATIONS, BUT WHEN I SAID THE NAME HE ACTED LIKE HER RECOGNIZED IT. WHILE INTERVIEWING THE PT SAID HE WAS ON A BLOOD THINNER ( LATER REMEMBERED IT WAS ELIQUIS) AND A CHOLESTEROL MED. WHEN I CALLED AROUND I COULD NOT FIND ACTIVE RX'S FOR EITHER OF THESE. I EVEN REACHED OUT TO HIS PROGRAM MANAGEMENT MANAGER OFFICE INCASE THEY GAVE HIM SAMPLE- THEY DID NOT. WHEN I WENT BACK TO SPEAK WITH THE PT AGAIN HE ADMITTED THAT HE HAD NOT TAKEN THIS MEDICATION IN SOME TIME. [facility] THE FOLLOWING ARE FILL DATES: 07-18-2019 ASMANEX 100MCG HFA #1/PRN 07-28-2019 CARAFATE 1 GM #12/PRN 11-15-2019 INDOMETHACIN 50MG #60/30DS 11-29-2019 DILTIAZEM 360MG ER #30/30DS 11-29-2019 METOPROLOL TART 25MG #60/30DS OTC MEDS: OMEPRAZOLE ASPIRIN FISH OIL
[2019-12-20] MEDS ORDERED: INDO50CA82 PO (15:09)
[2019-12-20 16:00] VITALS: BP 152/80
[2019-12-20] MEDS: ENOXAPARIN 40 MG/0.4 ML (LOVENOX) SYR SQ SCH (17:40)
[2019-12-20 20:00] VITALS: BP 122/58
[2019-12-20] MEDS ORDERED: meTOprolol TARTRATE 25 MG (LOPRESSOR) TABLET PO SCH (21:00)
[2019-12-21] VITALS: BP 117/59
[2019-12-21] MEDS: LACTATED RINGERS 1,000 ML IV SCH (03:23)
[2019-12-21 04:00] VITALS: BP 144/73
[2019-12-21 05:22] LABS: BASOPHILS % (AUTO) 1 % (0-10); EOSINOPHILS # (AUTO) 0.2 10^3/uL (0.0-0.3); EOSINOPHILS % (AUTO) 4 % (0-10); HEMATOCRIT 36 % (40-54); HEMOGLOBIN 11.9 G/DL (13.3-17.7); LYMPHOCYTES # (AUTO) 1.9 X 10^3 (1.0-4.0); LYMPHOCYTES % (AUTO) 34 % (12-44); MEAN CORPUSCULAR HEMOGLOBIN 28 PG (25-34); MEAN CORPUSCULAR HGB CONC 33 G/DL (32-36); MEAN CORPUSCULAR VOLUME 84 FL (80-99); MEAN PLATELET VOLUME 8.9 FL (7.4-10.4); MONOCYTES # (AUTO) 0.6 X 10^3 (0.0-1.0); MONOCYTES % (AUTO) 11 % (0-12); NEUTROPHILS # (AUTO) 2.8 X 10^3 (1.8-7.8); NEUTROPHILS % (AUTO) 50 % (42-75); PLATELET COUNT 262 10^3/uL (130-400); RED CELL DISTRIBUTION WIDTH 13.7 % (10.0-14.5); WHITE BLOOD COUNT 5.6 10^3/uL (4.3-11.0)
[2019-12-21 05:38] LABS: ALANINE AMINOTRANSFERASE 10 U/L (0-55); ALBUMIN 3.2 GM/DL (3.2-4.5); ALKALINE PHOSPHATASE 73 U/L (40-136); BILIRUBIN,TOTAL 0.3 MG/DL (0.1-1.0); BUN/CREATININE RATIO 20; CALCIUM 8.5 MG/DL (8.5-10.1); CARBON DIOXIDE 21 MMOL/L (21-32); CHLORIDE 108 MMOL/L (98-107); CREATININE SERUM 1.15 MG/DL (0.60-1.30); GFR ESTIMATED > 60; GLUCOSE 92 MG/DL (70-105); POTASSIUM 4.1 MMOL/L (3.6-5.0); SODIUM 139 MMOL/L (135-145); TOTAL PROTEIN 5.6 GM/DL (6.4-8.2)
[2019-12-21] MEDS: ENOXAPARIN 40 MG/0.4 ML (LOVENOX) SYR SQ SCH (06:42)
[2019-12-21 08:00] VITALS: BP 138/74
[2019-12-21] MEDS ORDERED: ASPIRIN 81 MG CHEW (CHILDREN'S ASA) PO SCH (09:00)
[2019-12-21] MEDS ORDERED: PANTOPRAZOLE 20 MG TABLET (PROTONIX) PO SCH (09:00)
--- NOTE | 2019-12-21 09:05 | Progress Note ---
TIMOTHY WAGNER MED STUDENT 12/21/19 0905: Subjective Subjective/Events-last exam Mr. Begum reports that he feels fine this morning and has no complaints. He said that he was woken up a couple of times by staff overnight when they were checking to see if he was doing okay. He has been urinating more frequently, he thinks probably due to the IV fluids. He is a little sore where they injected his blood thinner this morning. He has been ambulating, urinating, had a bowel movement yesterday, and has been tolerating his diet. He denies dizziness, lightheadedness, chest pain, palpitations, changes in vision, or shortness of breath. Review of Systems General: No Chills, No Night Sweats, No Fatigue, No Malaise, No Appetite, No Other HEENT: No Visual Changes Pulmonary: No Dyspnea, No Pleuritic Chest Pain Cardiovascular: No: Chest Pain, Palpitations, Edema, Lt Headedness Gastrointestinal: No: Abdominal Pain, Diarrhea, Constipation Genitourinary: No Dysuria; Frequency Musculoskeletal: neck pain (Thinks he is sore from being in hospital bed; has his typical arthritic pain also) Neurological: No: Change in speech, Confusion Objective Exam Last Set of Vital Signs Vital Signs Date Time Temp Pulse Resp B/P (MAP) Pulse Ox O2 Delivery O2 Flow Rate FiO2 12/21/19 04:00 37.0 48 16 144/73 (96) 95 Room Air Capillary Refill : Less Than 3 SecondsLess Than 3 Seconds I&O Intake and Output 12/21/19 00:00 Intake Total 1200 ml Balance 1200 ml Intake Oral 1200 ml # Voids 8 # Bowel Movements 1 General: Alert, Oriented X3, Cooperative, No Acute Distress HEENT: Atraumatic, EOMI Lungs: Clear to Auscultation Heart: Other (Bradycardic) Abdomen: Soft, No Tenderness, No Masses Extremities: No Cyanosis, No Edema, No Tenderness/Swelling Neuro: Normal Speech Psych/Mental Status: Mental Status NL, Mood NL Results/Procedures Lab Laboratory Tests 12/21/19 04:59: White Blood Count 5.6, Red Blood Count 4.25L, Hemoglobin 11.9L, Hematocrit 36L, Mean Corpuscular Volume 84, Mean Corpuscular Hemoglobin 28, Mean Corpuscular Hemoglobin Concent 33, Red Cell Distribution Width 13.7, Platelet Count 262, Mean Platelet Volume 8.9, Neutrophils (%) (Auto) 50, Lymphocytes (%) (Auto) 34, Monocytes (%) (Auto) 11, Eosinophils (%) (Auto) 4, Basophils (%) (Auto) 1, Neutrophils # (Auto) 2.8, Lymphocytes # (Auto) 1.9, Monocytes # (Auto) 0.6, Eosinophils # (Auto) 0.2, Basophils # (Auto) 0.0, Sodium Level 139, Potassium Level 4.1, Chloride Level 108H, Carbon Dioxide Level 21, Anion Gap 10, Blood Urea Nitrogen 23H, Creatinine 1.15, Estimat Glomerular Filtration Rate > 60, BUN/Creatinine Ratio 20, Glucose Level 92, Calcium Level 8.5, Corrected Calcium 9.1, Total Bilirubin 0.3, Aspartate Amino Transf (AST/SGOT) 10, Alanine Aminotransferase (ALT/SGPT) 10, Alkaline Phosphatase 73, Total Protein 5.6L, Albumin 3.2 Assessment/Plan Assessment/Plan Admission Dx #Altered Mental Status - Resolved x2 days - Counseled patient on when to return to hospital, including if experiencing symptoms like those before this episode, difficulty speaking, difficulty moving - Advised patient to take it easy for a couple of days, ensure he is taking good care of himself, and talking to others about grief #Syncope - Likely secondary to stress and/or bradycardia - Cardiology was consulted; metoprolol was held - Patient has been asymptomatic while hospitalized; has not had any prodromal sy mptoms #Bradycardia - Metoprolol held - Patient continues to have bradycardia, but denies any symptoms - Encourage follow up with PCP #Anemia - Hgb 11.9 today from 11.6 yesterday - Can continue to monitor on outpatient basis #HTN #HLD #CAD #Paroxysmal atrial fibrillation - Will continue W[employer]ER meds with exception of metoprolol #COPD - Discussed smoking cessation; patient interested but does not desire Chantix - Can work with PCP to develop plan #Arthritis - Patient describes pain as worse in mornings, and improved with use/movement - Has been using indomethacin for pain - Consider possibility of RA due to patient's description of improvement with activity, minimal/mild ulnar deviation in 1st MCP on L hand - Follow up with PCP if desired (1) Altered mental status Status: Acute Assessment & Plan: - Patient seems to be at baseline this AM, will continue to monitor Qualifiers: Qualified Codes: R41.82 - Altered mental status, unspecified (2) Syncope Status: Acute Assessment & Plan: - Cardiology consulted and appreciate recommendations Qualifiers: Qualified Codes: R55 - Syncope and collapse (3) Hypertension Status: Chronic Assessment & Plan: - Restart Cardizem, holding metoprolol due to bradycardia on admission Qualifiers: Qualified Codes: I10 - Essential (primary) hypertension (4) COPD (chronic obstructive pulmonary disease) Status: Chronic Assessment & Plan: - Will need repeat CXR or Low dose CT scan as outpatient Qualifiers: Qualified Codes: J44.9 - Chronic obstructive pulmonary disease, unspecified (5) Hyperlipidemia Status: Chronic Qualifiers: Qualified Codes: E78.2 - Mixed hyperlipidemia (6) Bradycardia Status: Acute Assessment & Plan: - Cardiology consulted, holding metoprolol (7) Coronary artery disease Status: Chronic Qualifiers: Qualified Codes: I25.10 - Atherosclerotic heart disease of [place] coronary artery without angina pectoris (8) Atrial fibrillation Status: Chronic Qualifiers: Qualified Codes: I48.0 - Paroxysmal atrial fibrillation (9) DVT prophylaxis Status: Acute Assessment & Plan: - Lovenox Clinical Quality Measures DVT/VTE Risk/Contraindication: Risk Factor Score Per Nursin RFS Level Per Nursing on Admit: 4+=Very High Stroke: Date of last known well: Dec 19, 2019 Time of last known well: 17:15 Symptoms onset unknown: No JAMAL BHARDWAJ MD 12/21/195: Assessment/Plan Assessment/Plan Admission Dx See D/c Summary Supervisory-Addendum Brief Verification & Attestation Participated in pt care: history Personally performed: exam Care discussed with: Medical Student Procedures: n/a Verification and Attestation of Medical Student E/M Service A medical student performed and documented this service in my presence. I reviewed and verified all information documented by the medical student and made modifications to such information, when appropriate. I personally performed the physical exam and medical decision making. Jamal Bhardwaj, Dec 21, 2019,21:55 TIMOTHY WAGNER MED STUDENT Dec 21, 2019 09:05 JAMAL BHARDWAJ MD Dec 21, 2019 21:55
--- NOTE | 2019-12-21 10:27 | Cardiology Progress Note ---
Subjective Date Seen by Provider: Dec 21, 2019 Time Seen by Provider: 10:22 Subjective/Events-last exam Patient is sitting up in bed, reports feeling better, noted to be bradycardic this morning with HR in the 50's. Denies any chest pain or dyspnea. Objective-Cardiology Exam Last Set of Vital Signs Vital Signs 12/21/19 12/21/19 12:00 12:46 Temp 37.0 Pulse 47 Resp 16 B/P (MAP) 135/75 (95) Pulse Ox 97 O2 Delivery Room Air Capillary Refill : Less Than 3 SecondsLess Than 3 Seconds I&O Intake and Output 12/21/19 00:00 Intake Total 1200 ml Balance 1200 ml Intake Oral 1200 ml # Voids 8 # Bowel Movements 1 General: Alert, Oriented X3, Cooperative, No Acute Distress HEENT: Atraumatic, EOMI Lungs: Clear to Auscultation Heart: Other (Bradycardic) Abdomen: Soft, No Tenderness, No Masses Extremities: No Cyanosis, No Edema, No Tenderness/Swelling Neuro: Normal Speech Psych/Mental Status: Mental Status NL, Mood NL Results Lab Laboratory Tests 12/21/19 04:59 A/P-Cardiology Admission Diagnosis Syncope Bradycardia CAD PAF Assessment/Plan Syncope- unknown etiology, likely secondary to bradycardia. Work up done in ER was negative. Patient feeling better, denies any further episodes of d izziness/lightheadedness or syncope. 2D Echo done earlier today within normal limits. Bradycardia, improved after holding BP medications. Lopressor was discontinued and restarted diltiazem, noted to be slightly bradycardic this morning. I will decrease dose of diltiazem and continue to monitor. Coronary artery disease, non-ST elevation myocardial infarction, cardiac catheter done in August 30, 2015 revealed total occlusion of RCA, 3 stents placed using 2.5 x 38, 2.75 x 28, 3.0 x 20 mm Promus Premier stents. Patient continues complain of chest pain that night and another cardiac catheterization was carried out on August 31, 2015 revealing 50 percent ostial left main, otherwise mild coronary artery disease with patent stents to the RCA. Echoc ardiogram showed ejection fraction 45-50 percent, stress test was done in October 2017 showing no significant ischemia with diaphragmatic attenuation with ejection fraction 52 percent, last cardiac catheterization done on May 06, [address] Hoffman reported as 90 percent ostial and proximal segment of the first diagonal artery with balloon angioplasty then deployment of Alpine 2.2528 mm stent, 70 percent mid LAD stenosis successful balloon angioplasty and reducing the lesion to 50 percent, patent stents in the proximal and mid and distal right coronary artery, normal left ventricular size and function. Doing well at this time. Continue to monitor, consider stress test as outpatient. Paroxysmal atrial fibrillation, currently maintained on Eliquis and Plavix due to the recent stent. Continue to monitor History of peptic ulcer disease Hyperlipidemia, continue to monitor as outpatient History of recurrent pneumonia History of [place] spotted fever, seen for evaluation with infectious disease, diagnosed with rheumatoid arthritis and started to see Dr Parish Vickers in [facility], patient says that he has quit smoking, encouraged to continue with smoking cessation Hypertension-continue to monitor blood pressure. History of paroxysmal SVT. Continue to monitor. Mild bilateral carotid stenosis, ultrasound done in November 2018. Continue to monitor Patient was seen and evaluated with Lisa, examination performed, management plan was discussed, agree with the current scribed note, I made few changes to the note using Italic font Patient will follow-up with my office as an outpatient. Continue to monitor Clinical Quality Measures DVT/VTE Risk/Contraindication: Risk Factor Score Per Nursin RFS Level Per Nursing on Admit: 4+=Very High Stroke: Date of last known well: Dec 19, 2019 Time of last known well: 17:15 Symptoms onset unknown: No LISA SUAREZ Dec 21, 2019 10:27 DANNY PRATER MD Dec 21, 2019 15:54
[2019-12-21 12:00] VITALS: BP 135/75
--- NOTE | 2019-12-21 13:53 | Discharge Summary ---
Diagnosis/Chief Complaint Date of Admission Dec 19, 2019 at 22:05 Date of Discharge 12/21/2019 Admission Diagnosis Admission Diagnosis See problem list Discharge Diagnosis See below Problems/Diagnosis: (1) Altered mental status Assessment & Plan: - Patient seems to be at baseline this AM, will continue to monitor 12/21: Patient at baseline, no additional episodes during admission, doing well during ambulation Qualifiers: Qualified Codes: R41.82 - Altered mental status, unspecified Status: Acute (2) Syncope Assessment & Plan: - Cardiology consulted and appreciate recommendations 12/21: No cardiac events during admission Qualifiers: Qualified Codes: R55 - Syncope and collapse Status: Acute (3) Hypertension Assessment & Plan: - Restart Cardizem, holding metoprolol due to bradycardia on admission Qualifiers: Qualified Codes: I10 - Essential (primary) hypertension Status: Chronic (4) COPD (chronic obstructive pulmonary disease) Assessment & Plan: - Will need repeat CXR or Low dose CT scan as outpatient Qualifiers: Qualified Codes: J44.9 - Chronic obstructive pulmonary disease, unspecified Status: Chronic (5) Hyperlipidemia Qualifiers: Qualified Codes: E78.2 - Mixed hyperlipidemia Status: Chronic (6) Bradycardia Assessment & Plan: - Cardiology consulted, holding metoprolol Status: Acute (7) Coronary artery disease Qualifiers: Qualified Codes: I25.10 - Atherosclerotic heart disease of [place] coronary artery without angina pectoris Status: Chronic (8) Atrial fibrillation Qualifiers: Qualified Codes: I48.0 - Paroxysmal atrial fibrillation Status: Chronic (9) DVT prophylaxis Assessment & Plan: - Lovenox Status: Acute Chief Complaint/HPI Chief Complaint/HPI Agree with Above HPI, reviewed with patient Discharge Summary-Simple/Stand Consultations Dr Molina: Cardiology Discharge Physical Examination Allergies: Coded Allergies: No Known Drug Allergies (Unverified , 08/20/17) Vitals & I&Os Vital Sign - Last 12Hours Date Time Temp Pulse Resp B/P (MAP) Pulse Ox O2 Delivery O2 Flow Rate FiO2 12/21/19 08:00 Room Air 12/21/19 08:00 37.1 56 20 138/74 (95) 97 Intake and Output 12/21/19 00:00 Intake Total 1200 ml Balance 1200 ml General Appearance: Alert, Oriented X3, Cooperative, No Acute Distress HEENT: Mucous Memb Moist/Cylinder Respiratory: Clear to Auscultation, Normal Air Movement Cardiovascular: Regular Rate, No Murmurs Abdominal: Normal Bowel Sounds, Soft, No Tenderness, No Masses Extremities: No Edema, No Tenderness/Swelling Skin: No Rashes, No Breakdown Neuro: Normal Speech, Strength at 5/5 X4 Ext, Sensation Intact, Cranial Nerves 3-12 NL Psych/Mental Status: Other (down mood, tearful when talking about GF and recent dx of metastatic cancer) Hospital Course Was the Problem List Reviewed?: Yes See final discharge diagnosis. Pending Labs RECOMMEND LOW DOSE CT CHEST FOR LUNG CANCER SCREEN Discussion & Recommendations 64 yo M that presented after episode altered mental status. Patient back to baseline at time of admission. Patient was placed on telemetry and seen by cardiology during admission and did not have any additional episodes. Discharge Condition at discharge stable Instructions to patient/family Please see electronic discharge instructions given to patient. Discharge Medications Reviewed and agree with Discharge Medication list on patient's Discharge Instruction sheet Clinical Quality Measures DVT/VTE Risk/Contraindication: Risk Factor Score Per Nursin RFS Level Per Nursing on Admit: 4+=Very High Stroke: Date of last known well: Dec 19, 2019 Time of last known well: 17:15 Symptoms onset unknown: No Copy Copies To 1: Victorino NUNEZ HOLLY R MD Dec 21, 2019 13:53
--- NOTE | 2019-12-21 14:16 | Discharge Summary ---
Discharge [facility] Reconcile Patient Problems Problems Reviewed?: Yes Discharge Medications New, Converted or Re-Newed RX: Other Continued Medications: Aspirin (Aspirin) 81 Mg Tab.chew 81 MG PO DAILY, TAB Diltiazem HCl (Diltiazem ER) 360 Mg Capsule.er 360 MG PO DAILY Fish Oil/Dha/Epa (Fish Oil 1,200 mg Fish Oil) 1 Each Capsule 1 EACH PO DAILY, CAP Indomethacin (Indomethacin) 50 Mg Capsule 50 MG PO BID Mometasone Furoate (Asmanex Hfa) 13 Gm Hfa.aer.ad 1 PUFF INH BID PRN for SHORTNESS OF BREATH, INHALER Omeprazole (Omeprazole) 20 Mg Capsule.dr 20 MG PO DAILY, CAP Sucralfate (Carafate) 1 Gm Tablet 1 GM PO QID PRN for ULCER, TAB TAKE 30 MINUTES BEFORE MEALS AND AT BEDTIME. MAY CRUSH AND MIX WITH 5-10 ML OF WATER TO MAKE SLURRY FOR BETTER EFFECT Discontinued Medications: Metoprolol Tartrate (Metoprolol Tartrate) 25 Mg Tablet 25 MG PO BID, TAB Patient Instructions Goal/Follow Up Appt: You have a f.u appt with Victorino Knapp on ThuDec 28 @ 1045 Patient Instructions: - Please review medications as they have been changed Activity & Diet Discharge Diet: Cardiac Diet Activity as Tolerated: Yes Orders-Post D/C & Referrals Pneu Vac Indicated: Yes JAMAL HEATH MD Dec 21, 2019 14:15
[2019-12-21 14:35] VITALS: BP 135/75
--- NOTE | 2019-12-21 14:35 | NUR ---
FE CONNOR demonstrates understanding of discharge instructions and accurately returns instructions upon questioning. Copy of Post-Discharge Instructions and Medication Discharge Instructions given to PATIENT. FE CONNOR is able to manage continuing needs after discharge. Patients belongings returned to PATIENT. Skin dry and intact; no breakdown noted. Patient discharged from [facility]- on 12/21/19 at 1435. FE CONNOR left floor via AMBULATORY, accompanied by FAMILY AND STAFF.
== END 2019-12-21 14:35 | disposition home or self-care (01) ==
LOC: EDUNIT# 18:01 → ER 18:02 → 4TH 22:05
PROVIDERS: ADMIT Family Medicine; ATTEND Family Medicine
DX: R41.82 Altered mental status, unspecified (principal); R55 Syncope and collapse; R00.1 Bradycardia, unspecified; I25.10 Atherosclerotic heart disease of native coronary artery without angina pectoris; I21.4 Non-ST elevation (NSTEMI) myocardial infarction; I25.2 Old myocardial infarction; I10 Essential (primary) hypertension; I48.0 Paroxysmal atrial fibrillation; I65.23 Occlusion and stenosis of bilateral carotid arteries; J44.9 Chronic obstructive pulmonary disease, unspecified; K21.9 Gastro-esophageal reflux disease without esophagitis; M06.9 Rheumatoid arthritis, unspecified; E78.5 Hyperlipidemia, unspecified; E78.00 Pure hypercholesterolemia, unspecified; Z79.82 Long term (current) use of aspirin; Z79.899 Other long term (current) drug therapy; Z79.02 Long term (current) use of antithrombotics/antiplatelets; Z87.891 Personal history of nicotine dependence; Z83.3 Family history of diabetes mellitus
CPT/HCPCS: 36415; 70450; 70496; 70498; 71045; 80053; 80061; 81000; 82962; 84484; 85025; 85379; 85610; 85730; 93005; 93041; 93306; 96360; 96372; G0378